=== PATIENT | female | born 1975 | race American Indian/Alaskan Native ===

== ENCOUNTER 2016-05-23 09:45 | Emergency (ER) | payer MEDICAID | END 2016-05-23 09:46 | disposition left against medical advice (07) | LOC: ED 09:45 | DX: R11.2 Nausea with vomiting, unspecified (principal); Z53.21 Procedure and treatment not carried out due to patient leaving prior to being seen by health care provider ==

== ENCOUNTER 2016-05-30 07:31 | Emergency (ER) | payer MEDICAID ==
[2016-05-30] MEDS ORDERED: PHENERGAN PR ONE (11:46)
[2016-05-30] MEDS ORDERED: DILAUDID IV ONE ×2 (11:46→13:29)
[2016-05-30] MEDS ORDERED: D5NS 1,000 ML IV SCH (12:00)
[2016-05-30] MEDS ORDERED: BENADRYL ONE (12:20)
[2016-05-30 12:26] LABS: Basophils % (Auto) 0.5 % (0.0-1.8); Eosinophils % (Auto) 0.6 % (0.0-4.3); Hemoglobin 9.6 gm/dl (10.1-14.3); Mean Corpuscular HGB Conc 32 % (30-34); Mean Corpuscular Hemoglobin 27 pg (28-32); Mean Corpuscular Volume 83 fl (79-97); Platelet Count 175 K/mm3 (140-440); Red Blood Count 3.63 M/mm3 (3.65-5.03); Red Cell Distribution Width 15.5 % (13.2-15.2); White Blood Count 4.7 K/mm3 (4.5-11.0)
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
[2016-05-30] MEDS ORDERED: BENADRYL IV ONE (12:30)
[2016-05-30 12:49] LABS: Alanine Aminotransferase 10 units/L (7-56); Albumin/Globulin Ratio 1.6 %; Alkaline Phosphatase 57 units/L (35-129); Bilirubin,Total 0.2 mg/dL (0.1-1.2); Blood Urea Nitrogen 7 mg/dL (7-17); Calcium 8.4 mg/dL (8.4-10.2); Carbon Dioxide 28 mmol/L (22-30); Chloride 101.8 mmol/L (98-107); Glucose 85 mg/dL (65-100); Lipase 48 units/L (13-60); Potassium 3.4 mmol/L (3.6-5.0); Sodium 142 mmol/L (137-145); Total Protein 6.5 g/dL (6.3-8.2)
[2016-05-30 12:59] LABS: Anion Gap 16 mmol/L
[2016-05-30] MEDS ORDERED: K-DUR PO ONE (13:29)
[2016-05-30 13:36] LABS: Bilirubin,Urine NEG (Negative); Blood,Urine SM (Negative); Ketones,Urine NEG (Negative); Leukocyte Esterase,Urine NEG (Negative); Mucus,Urine FEW /HPF; Nitrite,Urine NEG (Negative); Protein,Urine <15 mg/dL mg/dL (Negative); Urobilinogen,Urine < 2.0 mg/dL (<2.0)
[2016-05-30 14:11] VITALS: BP 130/89
[2016-05-30] MEDS ORDERED: FLUSH HEPARIN IV ONE ×2 (14:18→14:29)
== END 2016-05-30 14:32 | disposition home or self-care (01) ==
LOC: ED 07:31
DX: E87.6 Hypokalemia (principal); R10.84 Generalized abdominal pain; R11.2 Nausea with vomiting, unspecified; K21.9 Gastro-esophageal reflux disease without esophagitis; J45.909 Unspecified asthma, uncomplicated
CPT/HCPCS: 36415; 80053; 81001; 83690; 85025; 96374; 96375; 96376; 99283; J1170; J1200; J1642

== ENCOUNTER 2016-06-20 07:54 | Emergency (ER) | payer MEDICAID ==
[2016-06-20 08:37] VITALS: BP 146/78
--- NOTE | 2016-06-21 00:22 | ED Elopement Review ---
ED Pt Elopement review - Call Back decision Pt Call Back Decision: No action required
== END 2016-06-20 08:45 | disposition left against medical advice (07) ==
LOC: ED 07:54
DX: R11.2 Nausea with vomiting, unspecified (principal); R10.9 Unspecified abdominal pain; Z53.21 Procedure and treatment not carried out due to patient leaving prior to being seen by health care provider

== ENCOUNTER 2016-06-27 10:34 | Emergency (ER) | payer MEDICAID ==
[2016-06-27 11:48] VITALS: BP 127/89
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
== END 2016-06-27 12:51 | disposition home or self-care (01) ==
LOC: ED 10:34
DX: K08.89 Other specified disorders of teeth and supporting structures (principal); J45.909 Unspecified asthma, uncomplicated; D64.9 Anemia, unspecified; K86.1 Other chronic pancreatitis; K58.8 Other irritable bowel syndrome; K31.84 Gastroparesis; F17.200 Nicotine dependence, unspecified, uncomplicated; Z88.5 Allergy status to narcotic agent; Z88.8 Allergy status to other drugs, medicaments and biological substances
CPT/HCPCS: 99282

== ENCOUNTER 2016-07-25 12:17 | Emergency (ER) | payer MEDICAID ==
[2016-07-25 13:17] VITALS: BP 134/94
== END 2016-07-25 13:30 | disposition left against medical advice (07) ==
LOC: ED 12:17
DX: R10.9 Unspecified abdominal pain (principal); Z53.21 Procedure and treatment not carried out due to patient leaving prior to being seen by health care provider

== ENCOUNTER 2016-08-25 07:49 | Emergency (ER) | payer MEDICAID ==
[2016-08-25] MEDS ORDERED: ATIVAN IV ONE (12:22)
[2016-08-25] MEDS ORDERED: DILAUDID IV ONE (12:22)
[2016-08-25] MEDS ORDERED: PHENERGAN PR ONE (12:23)
[2016-08-25] MEDS ORDERED: BENADRYL IV ONE (12:23)
[2016-08-25] MEDS ORDERED: NACL 0.9% 1000 ML 1,000 ML IV ONE (12:24)
[2016-08-25 12:52] LABS: Basophils % (Auto) 0.8 % (0.0-1.8); Eosinophils % (Auto) 0.6 % (0.0-4.3); Hemoglobin 9.6 gm/dl (10.1-14.3); Mean Corpuscular HGB Conc 32 % (30-34); Mean Corpuscular Hemoglobin 27 pg (28-32); Mean Corpuscular Volume 84 fl (79-97); Platelet Count 253 K/mm3 (140-440); Red Blood Count 3.58 M/mm3 (3.65-5.03); Red Cell Distribution Width 14.5 % (13.2-15.2); White Blood Count 4.7 K/mm3 (4.5-11.0)
[2016-08-25 13:11] LABS: Alanine Aminotransferase 9 units/L (7-56); Albumin/Globulin Ratio 1.5 %; Alkaline Phosphatase 55 units/L (35-129); Anion Gap 16 mmol/L; BUN/Creatinine Ratio 11.66; Bilirubin,Total 0.3 mg/dL (0.1-1.2); Blood Urea Nitrogen 7 mg/dL (7-17); Calcium 8.4 mg/dL (8.4-10.2); Carbon Dioxide 23 mmol/L (22-30); Chloride 105.8 mmol/L (98-107); Glucose 87 mg/dL (65-100); Lipase 84 units/L (13-60); Potassium 3.3 mmol/L (3.6-5.0); Sodium 141 mmol/L (137-145); Total Protein 6.6 g/dL (6.3-8.2)
[2016-08-25] MEDS ORDERED: FLUSH HEPARIN IV ONE (13:41)
--- NOTE | 2016-08-25 13:43 | Emergency Department Report ---
ED General Adult HPI - General Chief complaint: Abdominal Pain Stated complaint: KIDNEY STONE PAIN Time Seen by Provider: 08/25/16 12:21 Source: patient, EMS Mode of arrival: Ambulatory Limitations: No Limitations - History of Present Illness Initial comments: This is a patient that I have previously encountered. She gave a fictitious history. She has a port. She has previously been and pain management. She states that she does not have any pain medicine now and that her pain has recurred. She recurrently tells people that she has pancreatitis and her lipase is recurrently normal. She requests Dilaudid and Phenergan typically. She states that she has primary care doctor's which have only seen her one time. Now she states that he relieves her primary care doctor but she hasn't seen him for 2 weeks. She also states that she has an appointment to see Dr. Childers. Previous CTs of the abdomen showed no evidence of cancer or pancreatitis. She is not particularly receptive to the idea of chronic pain management. -: Gradual, year(s) Location: abdomen Radiation: non-radiation Quality: aching Consistency: constant Improves with: none Worsens with: none Associated Symptoms: denies other symptoms Treatments Prior to Arrival: none - Related Data Previous Rx's Medication Instructions Recorded Last Taken Type Famotidine [Pepcid] 20 mg PO BID #60 tablet 04/26/16 Unknown Rx Promethazine [Phenergan TAB] 25 mg PO Q8HR PRN #20 tab 05/30/16 Unknown Rx oxyCODONE /ACETAMINOPHEN [Percocet 1 tab PO Q6HR PRN #20 tablet 05/30/16 Unknown Rx 5/325 mg] Lidocaine Viscous 2% 15 ml MM Q4H PRN #100 udc 06/27/16 Unknown Rx Penicillin Vk [Veetids TAB] 250 mg PO QID #28 tablet 06/27/16 Unknown Rx Allergies Allergy/AdvReac Type Severity Reaction Status Date / Time codeine Allergy Itching Verified 07/25/16 13:21 fentanyl Allergy Hives Verified 07/25/16 13:21 ketorolac tromethamine Allergy Itching Verified 07/25/16 13:21 [From Toradol] metoclopramide HCl Allergy Hives Verified 07/25/16 13:21 [From Reglan] morphine Allergy Hives Verified 07/25/16 13:21 ondansetron HCl [From Zofran] Allergy Hives Verified 07/25/16 13:21 prochlorperazine edisylate Allergy Hives Verified 07/25/16 13:21 [From Compazine] prochlorperazine maleate Allergy Hives Verified 07/25/16 13:21 [From Compazine] ED Review of Systems ROS: Stated complaint: KIDNEY STONE PAIN Other details as noted in HPI Constitutional: denies: chills, fever Eyes: denies: eye pain, eye discharge, vision change ENT: denies: ear pain, throat pain Respiratory: denies: cough, shortness of breath, wheezing Cardiovascular: denies: chest pain, palpitations Endocrine: no symptoms reported Gastrointestinal: abdominal pain, nausea. denies: diarrhea Genitourinary: denies: urgency, dysuria, discharge Musculoskeletal: denies: back pain, joint swelling, arthralgia Skin: denies: rash, lesions Neurological: denies: headache, weakness, paresthesias Psychiatric: denies: anxiety, depression Hematological/Lymphatic: denies: easy bleeding, easy bruising ED Past Medical Hx - Past Medical History Previous Medical History?: Yes Hx Hypertension: No Hx CVA: No Hx Heart Attack/AMI: No Hx Congestive Heart Failure: No Hx Diabetes: No Hx Deep Vein Thrombosis: No Hx Pulmonary Embolism: No Hx GERD: Yes (Gastroparesis) Hx Liver Disease: No Hx Renal Disease: Yes (renal failure- now in remission) Hx Sickle Cell Disease: No Hx Arthritis: No Hx Headaches / Migraines: No Hx Seizures: No Hx Kidney Stones: Yes Hx Psychiatric Treatment: No Hx Asthma: Yes Hx COPD: No Hx Tuberculosis: No Hx Dementia: No Hx HIV: No Additional medical history: ovarian/lung ca, gastroparesis, IBS, chronic pancereatitis, anemia. (LYMPHOMA LUNG), pyelonephritis, herpes. PORT RIGHT CHEST - Surgical History Past Surgical History?: Yes Hx Coronary Stent: No Hx Open Heart Surgery: No Hx Pacemaker: No Hx Internal Defibrillator: No Hx Cholecystectomy: Yes Hx Appendectomy: No Hx Breast Surgery: No Additional Surgical History: fistula repair, lower bowel dissection, stents (in/ out), hysterectomy. Power port - Social History Smoking Status: Never Smoker Substance Use Type: Prescribed - Medications Home Medications: Home Medications Medication Instructions Recorded Confirmed Last Taken Type Famotidine [Pepcid] 20 mg PO BID #60 tablet 04/26/16 Unknown Rx Promethazine [Phenergan TAB] 25 mg PO Q8HR PRN #20 tab 05/30/16 Unknown Rx oxyCODONE /ACETAMINOPHEN [Percocet 1 tab PO Q6HR PRN #20 tablet 05/30/16 Unknown Rx 5/325 mg] Lidocaine Viscous 2% 15 ml MM Q4H PRN #100 udc 06/27/16 Unknown Rx Penicillin Vk [Veetids TAB] 250 mg PO QID #28 tablet 06/27/16 Unknown Rx ED Physical Exam - General Limitations: No Limitations General appearance: alert, in no apparent distress - Head Head exam: Present: atraumatic, normocephalic - Eye Eye exam: Present: normal appearance, PERRL, EOMI. Absent: scleral icterus - ENT ENT exam: Present: mucous membranes moist - Neck Neck exam: Present: normal inspection - Respiratory Respiratory exam: Present: normal lung sounds bilaterally. Absent: respiratory distress - Cardiovascular Cardiovascular Exam: Present: regular rate, normal rhythm. Absent: systolic murmur, diastolic murmur, rubs, gallop - GI/Abdominal GI/Abdominal exam: Present: soft, guarding (voluntary guarding only. with distraction the abdominal exam is normal.), normal bowel sounds. Absent: distended, tenderness, rebound, rigid, organomegaly, mass, pulsatile mass - Extremities Exam Extremities exam: Present: normal inspection - Back Exam Back exam: Present: normal inspection - Neurological Exam Neurological exam: Present: alert, oriented X3, CN II-XII intact. Absent: motor sensory deficit - Psychiatric Psychiatric exam: Present: normal affect, normal mood - Skin Skin exam: Present: warm, dry, intact, normal color. Absent: rash ED Course Vital Signs 08/25/16 08/25/16 08/25/16 07:50 12:22 12:31 Temperature 98.7 F Pulse Rate 103 H Respiratory 20 Rate Blood Pressure 135/110 142/95 O2 Sat by Pulse 98 100 100 Oximetry 08/25/16 12:44 Temperature Pulse Rate Respiratory 18 Rate Blood Pressure O2 Sat by Pulse Oximetry - Reevaluation(s) Reevaluation #1: The patient was seen walking about the emergency department in no distress. She would not provide a urinalysis. Do not think it is necessary for us to complete her workup. Therefore this be canceled. Patient has chronic pain gives fictitious history and many red flags for drug-seeking behavior. She is not receptive to continuity of care it was see him in a chronic pain management setting. It was also same medicines was necessary. She will be discharged to follow-up with Dr. Fallon and Dr. Childers. 08/25/16 13:42 ED Medical Decision Making - Lab Data Result diagrams: 08/25/16 12:20 08/25/16 12:20 Critical care attestation.: If time is entered above; I have spent that time in minutes in the direct care of this critically ill patient, excluding procedure time. ED Disposition Clinical Impression: Gastroparesis, Hypokalemia, Hx of chronic pancreatitis Abdominal pain Qualifiers: Abdominal location: generalized Qualified Code(s): R10.84 - Generalized abdominal pain Disposition: DISCHARGED TO HOME OR SELFCARE Is pt being admited?: No Does the pt Need Aspirin: No Condition: Stable Instructions: Abdominal Pain (ED), Chronic Pain (ED) Additional Instructions: Follow up with Dr. Fallon and Dr. Childers. It would seem that chronic pain management would be appropriate. There is no evidence of pancreatitis at this time. Referrals: PRIMARY CARE, [Primary Care Provider] - 3-5 Days Time of Disposition: 13:44
[2016-08-25] MEDS ORDERED: PERCOCET 5/325 PO ONE (13:49)
[2016-08-25] MEDS ORDERED: K-DUR PO ONE (13:49)
[2016-08-25 14:20] VITALS: BP 131/71
== END 2016-08-25 14:19 | disposition home or self-care (01) ==
LOC: ED 07:49
DX: K31.84 Gastroparesis (principal); E87.6 Hypokalemia; J45.909 Unspecified asthma, uncomplicated; Z90.49 Acquired absence of other specified parts of digestive tract; Z90.710 Acquired absence of both cervix and uterus
CPT/HCPCS: 36415; 51701; 80053; 83690; 85025; 96361; 96374; 96375; 99284; J1170; J1200; J1642; J2060; J7030

== ENCOUNTER 2016-10-14 05:39 | Emergency (ER) | payer MEDICAID ==
--- NOTE | 2016-10-14 08:24 | Emergency Department Report ---
ED Abdominal Pain HPI - General Chief Complaint: Abdominal Pain Stated Complaint: ABD PAIN/N/V HEADACHE Time Seen by Provider: 10/14/16 08:22 Source: patient Mode of arrival: Ambulatory Limitations: No Limitations - History of Present Illness Initial Comments: This is a patient that I previously. On a number of medications. As far as I know she gives a fictitious history of lymphoma. She has been here multiple times requesting pain management. She is totally resistant to chronic pain management when I have mentioned it in the past and also today. She states that she had an amylase of 1:30 in her primary care office. MD Complaint: abdominal pain -: year(s) Location: diffuse Radiation: none Migration to: no migration Quality: aching Consistency: intermittent Improves With: nothing Worsens With: nothing Associated Symptoms: denies other symptoms - Related Data Previous Rx's Medication Instructions Recorded Last Taken Type Famotidine [Pepcid] 20 mg PO BID #60 tablet 04/26/16 Unknown Rx Promethazine [Phenergan TAB] 25 mg PO Q8HR PRN #20 tab 05/30/16 Unknown Rx oxyCODONE /ACETAMINOPHEN [Percocet 1 tab PO Q6HR PRN #20 tablet 05/30/16 Unknown Rx 5/325 mg] Lidocaine Viscous 2% 15 ml MM Q4H PRN #100 udc 06/27/16 Unknown Rx Penicillin Vk [Veetids TAB] 250 mg PO QID #28 tablet 06/27/16 Unknown Rx HYDROcodone/APAP 7.5-325 [[place] 1 each PO Q6HR PRN #14 tablet 08/25/16 Unknown Rx 7.5/325] Promethazine [Phenergan] 25 mg [place] Q6HR PRN #14 supp.rect 08/25/16 Unknown Rx Allergies Allergy/AdvReac Type Severity Reaction Status Date / Time codeine Allergy Itching Verified 07/25/16 13:21 fentanyl Allergy Hives Verified 07/25/16 13:21 ketorolac tromethamine Allergy Itching Verified 07/25/16 13:21 [From Toradol] metoclopramide HCl Allergy Hives Verified 07/25/16 13:21 [From Reglan] morphine Allergy Hives Verified 07/25/16 13:21 ondansetron HCl [From Zofran] Allergy Hives Verified 07/25/16 13:21 prochlorperazine edisylate Allergy Hives Verified 07/25/16 13:21 [From Compazine] prochlorperazine maleate Allergy Hives Verified 07/25/16 13:21 [From Compazine] ED Review of Systems ROS: Stated complaint: ABD PAIN/N/V HEADACHE Other details as noted in HPI Constitutional: denies: chills, fever Eyes: denies: eye pain, eye discharge, vision change ENT: denies: ear pain, throat pain Respiratory: denies: cough, shortness of breath, wheezing Cardiovascular: denies: chest pain, palpitations Endocrine: no symptoms reported Gastrointestinal: abdominal pain. denies: vomiting, diarrhea Genitourinary: denies: urgency, dysuria, discharge Musculoskeletal: denies: back pain, joint swelling, arthralgia Skin: denies: rash, lesions Neurological: denies: headache, weakness, paresthesias Psychiatric: denies: anxiety, depression Hematological/Lymphatic: denies: easy bleeding, easy bruising ED Past Medical Hx - Past Medical History Previous Medical History?: Yes Hx Hypertension: No Hx CVA: No Hx Heart Attack/AMI: No Hx Congestive Heart Failure: No Hx Diabetes: No Hx Deep Vein Thrombosis: No Hx Pulmonary Embolism: No Hx GERD: Yes (Gastroparesis) Hx Liver Disease: No Hx Renal Disease: Yes (renal failure- now in remission) Hx Sickle Cell Disease: No Hx Arthritis: No Hx Headaches / Migraines: No Hx Seizures: No Hx Kidney Stones: Yes Hx Psychiatric Treatment: No Hx Asthma: Yes Hx COPD: No Hx Tuberculosis: No Hx Dementia: No Hx HIV: No Additional medical history: ovarian/lung ca, gastroparesis, IBS, chronic pancereatitis, anemia. (LYMPHOMA LUNG), pyelonephritis, herpes. PORT RIGHT CHEST - Surgical History Past Surgical History?: Yes Hx Coronary Stent: No Hx Open Heart Surgery: No Hx Pacemaker: No Hx Internal Defibrillator: No Hx Cholecystectomy: Yes Hx Appendectomy: No Hx Breast Surgery: No Additional Surgical History: fistula repair, lower bowel dissection, stents (in/ out), hysterectomy. Power port - Social History Smoking Status: Never Smoker Substance Use Type: None - Medications Home Medications: Home Medications Medication Instructions Recorded Confirmed Last Taken Type Famotidine [Pepcid] 20 mg PO BID #60 tablet 04/26/16 Unknown Rx Promethazine [Phenergan TAB] 25 mg PO Q8HR PRN #20 tab 05/30/16 Unknown Rx oxyCODONE /ACETAMINOPHEN [Percocet 1 tab PO Q6HR PRN #20 tablet 05/30/16 Unknown Rx 5/325 mg] Lidocaine Viscous 2% 15 ml [place] Q4H PRN #100 udc 06/27/16 Unknown Rx Penicillin Vk [Veetids TAB] 250 mg PO QID #28 tablet 06/27/16 Unknown Rx HYDROcodone/APAP 7.5-325 [[place] 1 each PO Q6HR PRN #14 tablet 08/25/16 Unknown Rx 7.5/325] Promethazine [Phenergan] 25 mg [place] Q6HR PRN #14 supp.rect 08/25/16 Unknown Rx ED Physical Exam - General Limitations: No Limitations General appearance: alert, in no apparent distress - Head Head exam: Present: atraumatic, normocephalic - Eye Eye exam: Present: normal appearance. Absent: scleral icterus - ENT ENT exam: Present: mucous membranes moist - Neck Neck exam: Present: normal inspection - Respiratory Respiratory exam: Present: normal lung sounds bilaterally. Absent: respiratory distress - Cardiovascular Cardiovascular Exam: Present: regular rate, normal rhythm. Absent: systolic murmur, diastolic murmur, rubs, gallop - GI/Abdominal GI/Abdominal exam: Present: soft, normal bowel sounds. Absent: distended, tenderness, guarding, rebound, rigid, organomegaly, mass, bruit, pulsatile mass , hernia - Extremities Exam Extremities exam: Present: normal inspection - Back Exam Back exam: Present: normal inspection - Neurological Exam Neurological exam: Present: alert, oriented X3, CN II-XII intact. Absent: motor sensory deficit - Psychiatric Psychiatric exam: Present: normal affect, normal mood - Skin Skin exam: Present: warm, dry, intact, normal color. Absent: rash ED Course Vital Signs 10/14/16 10/14/16 10/14/16 05:49 08:45 09:00 Temperature 99.1 F Pulse Rate 104 H 101 H Respiratory 20 16 16 Rate Blood Pressure 126/80 Blood Pressure 137/74 [Right] O2 Sat by Pulse 96 100 98 Oximetry - Reevaluation(s) Reevaluation #1: This was informed to access the patient's port. However, she became involved with another emergency patient (STEMI). The patient did make some inappropriate comments about staff stating she was a drug addict. This is completely false. The patient disputable he has had many emergency department visits. She tends to have a minimally elevated amylase or lipase. I have seen her now 3 times. It is possible that she does have some chronic pancreatitis. Her history of lymphoma could not be substantiated. She stated that her primary care provider found her lipase to be 1:30. It is about that today. I don't see any indication for acute intravenous pain management. In any case, the patient left without treatment. 10/14/16 12:44 10/14/16 12:48 ED Medical Decision Making - Lab Data Result diagrams: 10/14/16 09:59 10/14/16 09:59 Laboratory Results - last 24 hr 10/14/16 10/14/16 10/14/16 09:59 09:59 09:59 WBC 5.6 RBC 4.20 Hgb 11.1 Hct 34.5 MCV 82 MCH 26 L MCHC 32 RDW 15.9 H Plt Count 242 Lymph % (Auto) 36.1 H [place] % (Auto) 8.0 H Eos % (Auto) 2.2 Baso % (Auto) 0.8 Lymph # 2.0 [place] # 0.4 Eos # 0.1 Baso # 0.0 Seg Neutrophils % 52.9 Seg Neutrophils # 3.0 Sodium 142 Potassium 3.9 Chloride 105.2 Carbon Dioxide 24 Anion Gap 17 BUN 11 Creatinine 0.6 L Estimated GFR > 60 BUN/Creatinine Ratio 18.33 Glucose 101 H Calcium 8.5 Magnesium 2.10 Total Bilirubin < 0.20 AST 52 H ALT 18 Alkaline Phosphatase 62 Total Protein 7.0 Albumin 4.2 Albumin/Globulin Ratio 1.5 Amylase 173 H Lipase 127 H Critical care attestation.: If time is entered above; I have spent that time in minutes in the direct care of this critically ill patient, excluding procedure time. ED Disposition Clinical Impression: Abdominal pain Qualifiers: Abdominal location: generalized Qualified Code(s): R10.84 - Generalized abdominal pain Disposition: ELOPED Is pt being admited?: No Does the pt Need Aspirin: No Condition: Undetermined Instructions: Abdominal Pain (ED) Referrals: PRIMARY CARE, [Primary Care Provider] - 3-5 Days Time of Disposition: 10:00
[2016-10-14 10:23] LABS: Basophils % (Auto) 0.8 % (0.0-1.8); Eosinophils % (Auto) 2.2 % (0.0-4.3); Hematocrit 34.5 % (30.3-42.9); Hemoglobin 11.1 gm/dl (10.1-14.3); Mean Corpuscular HGB Conc 32 % (30-34); Mean Corpuscular Hemoglobin 26 pg (28-32); Mean Corpuscular Volume 82 fl (79-97); Platelet Count 242 K/mm3 (140-440); Red Cell Distribution Width 15.9 % (13.2-15.2); White Blood Count 5.6 K/mm3 (4.5-11.0)
[2016-10-14 10:31] VITALS: BP 137/74
[2016-10-14 10:39] LABS: Magnesium 2.1 mg/dL (1.7-2.3)
[2016-10-14 10:43] LABS: Alanine Aminotransferase 18 units/L (7-56); Albumin 4.2 g/dL (3.9-5); Albumin/Globulin Ratio 1.5 %; Alkaline Phosphatase 62 units/L (35-129); Anion Gap 17 mmol/L; BUN/Creatinine Ratio 18.33; Bilirubin,Total < 0.20 mg/dL (0.1-1.2); Blood Urea Nitrogen 11 mg/dL (7-17); Calcium 8.5 mg/dL (8.4-10.2); Carbon Dioxide 24 mmol/L (22-30); Chloride 105.2 mmol/L (98-107); Glucose 101 mg/dL (65-100); Potassium 3.9 mmol/L (3.6-5.0); Sodium 142 mmol/L (137-145)
== END 2016-10-14 11:15 | disposition left against medical advice (07) ==
LOC: ED 05:39
DX: R10.84 Generalized abdominal pain (principal); J45.909 Unspecified asthma, uncomplicated; K58.9 Irritable bowel syndrome, unspecified; D64.9 Anemia, unspecified; Z88.5 Allergy status to narcotic agent; Z88.8 Allergy status to other drugs, medicaments and biological substances
CPT/HCPCS: 36415; 80053; 82150; 83690; 83735; 85025; 99283

== ENCOUNTER 2016-12-05 09:36 | Emergency (ER) | payer MEDICAID, OTHER ==
[2016-12-05] MEDS ORDERED: NACL 0.9% 1000 ML 1,000 ML IV ONE (10:11)
[2016-12-05] MEDS ORDERED: BENTYL IM ONE (10:28)
[2016-12-05] MEDS ORDERED: BENADRYL IV ONE (10:29)
[2016-12-05] MEDS ORDERED: DILAUDID IV ONE (11:18)
--- NOTE | 2016-12-05 11:20 | Cat Scan Report ---
CT ABDOMEN AND PELVIS WITHOUT CONTRAST INDICATION: Abdominal pain, nausea, vomiting. COMPARISON: 04/24/2016 FINDINGS: Noncontrast abdomen and pelvis CT performed. LUNG BASES: Nonspecific distal esophageal wall prominence/thickening, not excluded for gastroesophageal reflux and/or hiatal hernia, amongst others. ABDOMEN: Please note that sensitivity to detect small visceral lesions is limited due to the absence of intravenous or oral contrast. However, grossly unremarkable unenhanced liver, spleen, pancreas, adrenals, kidneys, non-aneurysmal abdominal aorta and the IVC. No ascites or size significant adenopathy. Stable cholecystectomy clips and small umbilical/supraumbilical fat containing hernia. Nonopacified GI tract evaluation limited, though grossly nonobstructive. Subtle prominence of the appendix about its cecal attachment though nonspecific with approximately 1 cm caliber, axial image 213, series 2 and arguably a similar appearance as on December 2015 CT. PELVIS: Uterus again surgically absent with few pelvic phleboliths. Grossly unremarkable nonopacified rectosigmoid. Urinary bladder inadequately distended and assessed. No free fluid or significant adenopathy. Slight dextroscoliosis apex about L2. CONCLUSION: No definite acute CT abnormality on this limited, unenhanced exam with few incidental findings, as above. Please also correlate clinically. I phoned the above posterior body in the ER, 11:10 AM, 11/25/2016. Thank you for the opportunity to participate in this patient's care.
[2016-12-05 11:34] LABS: Basophils % (Auto) 0.7 % (0.0-1.8); Eosinophils % (Auto) 0.3 % (0.0-4.3); Hematocrit 30.9 % (30.3-42.9); Mean Corpuscular HGB Conc 33 % (30-34); Mean Corpuscular Hemoglobin 27 pg (28-32); Mean Corpuscular Volume 83 fl (79-97); Platelet Count 248 K/mm3 (140-440); Red Blood Count 3.75 M/mm3 (3.65-5.03); Red Cell Distribution Width 16.5 % (13.2-15.2); White Blood Count 6.3 K/mm3 (4.5-11.0)
[2016-12-05 11:44] LABS: Partial Thromboplastin Time 37.4 Sec. (24.2-36.6)
[2016-12-05 11:47] LABS: Alanine Aminotransferase 40 units/L (7-56); Albumin 4.4 g/dL (3.9-5); Albumin/Globulin Ratio 1.5 %; Alkaline Phosphatase 69 units/L (35-129); Amylase 126 units/L (27-131); Anion Gap 18 mmol/L; Blood Urea Nitrogen 12 mg/dL (7-17); Calcium 8.8 mg/dL (8.4-10.2); Carbon Dioxide 26 mmol/L (22-30); Chloride 101.4 mmol/L (98-107); Glucose 97 mg/dL (65-100); Lipase 74 units/L (13-60); Potassium 3.9 mmol/L (3.6-5.0); Sodium 141 mmol/L (137-145); Total Protein 7.4 g/dL (6.3-8.2)
--- NOTE | 2016-12-05 13:30 | Emergency Department Report ---
HPI - General Chief Complaint: Nausea/Vomiting/Diarrhea Time Seen by Provider: 12/05/16 10:02 - HPI HPI: ABDOMINAL PAIN. ED Past Medical Hx - Past Medical History Hx Hypertension: No Hx CVA: No Hx Heart Attack/AMI: No Hx Congestive Heart Failure: No Hx Diabetes: No Hx Deep Vein Thrombosis: No Hx Pulmonary Embolism: No Hx GERD: Yes (Gastroparesis) Hx Liver Disease: No Hx Renal Disease: Yes (renal failure- now in remission) Hx Sickle Cell Disease: No Hx Arthritis: No Hx Headaches / Migraines: No Hx Seizures: No Hx Kidney Stones: Yes Hx Psychiatric Treatment: No Hx Asthma: Yes Hx COPD: No Hx Tuberculosis: No Hx Dementia: No Hx HIV: No Additional medical history: ovarian/lung ca, gastroparesis, IBS, chronic pancereatitis, anemia. (LYMPHOMA LUNG), pyelonephritis, herpes. PORT RIGHT CHEST - Surgical History Hx Coronary Stent: No Hx Open Heart Surgery: No Hx Pacemaker: No Hx Internal Defibrillator: No Hx Cholecystectomy: Yes Hx Appendectomy: No Hx Breast Surgery: No Additional Surgical History: fistula repair, lower bowel dissection, stents (in/ out), hysterectomy. Power port - Social History Smoking Status: Never Smoker Substance Use Type: None - Medications Home Medications: Home Medications Medication Instructions Recorded Confirmed Last Taken Type Famotidine [Pepcid] 20 mg PO BID #60 tablet 04/26/16 Unknown Rx Promethazine [Phenergan TAB] 25 mg PO Q8HR PRN #20 tab 05/30/16 Unknown Rx oxyCODONE /ACETAMINOPHEN [Percocet 1 tab PO Q6HR PRN #20 tablet 05/30/16 Unknown Rx 5/325 mg] Lidocaine Viscous 2% 15 ml MM Q4H PRN #100 udc 06/27/16 Unknown Rx Penicillin Vk [Veetids TAB] 250 mg PO QID #28 tablet 06/27/16 Unknown Rx HYDROcodone/APAP 7.5-325 [[place] 1 each PO Q6HR PRN #14 tablet 08/25/16 Unknown Rx 7.5/325] Promethazine [Phenergan] 25 mg [place] Q6HR PRN #14 supp.rect 08/25/16 Unknown Rx ED Review of Systems ROS: Stated complaint: THROWING UP BILE Other details as noted in HPI Physical Exam - Physical Exam Vital Signs: Vital Signs 12/05/16 09:55 Temperature 99.2 F Pulse Rate 108 H Respiratory 16 Rate Blood Pressure 128/72 O2 Sat by Pulse 99 Oximetry ED Course Vital Signs 12/05/16 09:55 Temperature 99.2 F Pulse Rate 108 H Respiratory 16 Rate Blood Pressure 128/72 O2 Sat by Pulse 99 Oximetry ED Medical Decision Making - Lab Data Result diagrams: 12/05/16 10:54 12/05/16 10:54 Critical care attestation.: If time is entered above; I have spent that time in minutes in the direct care of this critically ill patient, excluding procedure time. ED Disposition Clinical Impression: Abdominal pain Disposition: DC-01 TO HOME OR SELFCARE Is pt being admited?: No Does the pt Need Aspirin: No Condition: Stable Instructions: Abdominal Pain (ED) Referrals: PRIMARY CARE, [Primary Care Provider] - 3-5 Days
[2016-12-05 13:42] VITALS: BP 122/74
== END 2016-12-05 13:45 | disposition home or self-care (01) ==
LOC: ED 09:36
DX: R10.13 Epigastric pain (principal); R11.2 Nausea with vomiting, unspecified; R19.7 Diarrhea, unspecified; K21.9 Gastro-esophageal reflux disease without esophagitis; J45.909 Unspecified asthma, uncomplicated
CPT/HCPCS: 36415; 74176; 80053; 82150; 83690; 84484; 85025; 85610; 85730; 96361; 96372; 96374; 96375; 99284; J1170; J1200; J7030

== ENCOUNTER 2016-12-24 08:10 | Inpatient (IN) | payer OTHER ==
[2016-12-24 10:24] LABS: Basophils % (Auto) 0.6 % (0.0-1.8); Eosinophils % (Auto) 0.4 % (0.0-4.3); Hematocrit 32.8 % (30.3-42.9); Hemoglobin 10.4 gm/dl (10.1-14.3); Mean Corpuscular HGB Conc 32 % (30-34); Mean Corpuscular Hemoglobin 26 pg (28-32); Mean Corpuscular Volume 82 fl (79-97); Platelet Count 263 K/mm3 (140-440); Red Blood Count 3.99 M/mm3 (3.65-5.03); Red Cell Distribution Width 15.3 % (13.2-15.2); White Blood Count 4.5 K/mm3 (4.5-11.0)
[2016-12-24 10:26] LABS: Bilirubin,Urine NEG (Negative); Blood,Urine SM (Negative); Ketones,Urine NEG (Negative); Leukocyte Esterase,Urine NEG (Negative); Nitrite,Urine NEG (Negative); Protein,Urine <15 mg/dL mg/dL (Negative); Urobilinogen,Urine < 2.0 mg/dL (<2.0); WBC,Urine < 1.0 /HPF (0.0-6.0)
[2016-12-24] MEDS ORDERED: DILAUDID IV ONE ×2 (10:42→13:12)
[2016-12-24] MEDS ORDERED: PHENERGAN PR ONE ×3 (10:42→13:12)
[2016-12-24] MEDS ORDERED: ATIVAN IV ONE (10:43)
[2016-12-24] MEDS ORDERED: BENADRYL IV ONE (10:44)
[2016-12-24 10:49] LABS: Alanine Aminotransferase 15 units/L (7-56); Albumin 4.1 g/dL (3.9-5); Albumin/Globulin Ratio 1.4 %; Alkaline Phosphatase 79 units/L (35-129); Anion Gap 16 mmol/L; BUN/Creatinine Ratio 8.57; Blood Urea Nitrogen 6 mg/dL (7-17); Calcium 8.5 mg/dL (8.4-10.2); Carbon Dioxide 26 mmol/L (22-30); Chloride 100.3 mmol/L (98-107); Glucose 125 mg/dL (65-100); Lipase 36 units/L (13-60); Potassium 3.5 mmol/L (3.6-5.0); Sodium 139 mmol/L (137-145)
[2016-12-24] MEDS ORDERED: D5NS 1,000 ML IV SCH ×3 (11:00→15:00)
[2016-12-24] MEDS ORDERED: POTASSIUM CHLORIDE PO ONE (12:07)
--- NOTE | 2016-12-24 12:07 | Emergency Department Report ---
ED Abdominal Pain HPI - General Chief Complaint: Abdominal Pain Stated Complaint: ABD PAIN Time Seen by Provider: 12/24/16 10:22 Source: patient, old records reviewed Mode of arrival: Wheelchair Limitations: No Limitations - History of Present Illness Initial Comments: 41-year-old female with a past medical history of recurrent visits to the ER for abdominal pain, chronic pancreatitis, gastroparesis, kidney stones, possible history of lymphoma, previous hysterectomy, fissure repair, and bowel surgery presents to the hospital with complaints of abdominal pain for the last several days and nausea and vomiting since midnight. Positive diarrhea for the past 4 days. Pain is the left upper abdomen, constant, aching with intermittent sharp component and radiates to the back. Patient also have a sharp right flank pain that is intermittent as well and patient expresses concern for kidney stones. Pain is 8/10 in intensity, worse with palpation and movement. No alleviating factors. Currently not taking any narcotics at home. Patient has had a history of frequent ER visits for chronic pain related complaints. She denies currently been enrolled into pain management. No recent antibiotic use reported. PMD: Dr. Baker, GI: [facility] Severity scale (0 -10): 8 - Related Data Previous Rx's Medication Instructions Recorded Last Taken Type Famotidine [Pepcid] 20 mg PO BID #60 tablet 04/26/16 Unknown Rx Promethazine [Phenergan TAB] 25 mg PO Q8HR PRN #20 tab 05/30/16 Unknown Rx oxyCODONE /ACETAMINOPHEN [Percocet 1 tab PO Q6HR PRN #20 tablet 05/30/16 Unknown Rx 5/325 mg] Lidocaine Viscous 2% 15 ml MM Q4H PRN #100 udc 06/27/16 Unknown Rx Penicillin Vk [Veetids TAB] 250 mg PO QID #28 tablet 06/27/16 Unknown Rx HYDROcodone/APAP 7.5-325 [[place] 1 each PO Q6HR PRN #14 tablet 08/25/16 Unknown Rx 7.5/325] Promethazine [Phenergan] 25 mg [place] Q6HR PRN #14 supp.rect 08/25/16 Unknown Rx Allergies Allergy/AdvReac Type Severity Reaction Status Date / Time codeine Allergy Itching Verified 12/24/16 08:17 fentanyl Allergy Hives Verified 12/24/16 08:17 ketorolac tromethamine Allergy Itching Verified 12/24/16 08:17 [From Toradol] metoclopramide HCl Allergy Hives Verified 12/24/16 08:17 [From Reglan] morphine Allergy Hives Verified 12/24/16 08:17 ondansetron HCl [From Zofran] Allergy Hives Verified 12/24/16 08:17 prochlorperazine edisylate Allergy Hives Verified 12/24/16 08:17 [From Compazine] prochlorperazine maleate Allergy Hives Verified 12/24/16 08:17 [From Compazine] ED Review of Systems ROS: Stated complaint: ABD PAIN Other details as noted in HPI Comment: All other systems reviewed and negative Other: Constitutional: No fevers chills Eyes: No eye pain visual changes ENT: No ear pain or throat pain Neck: Denies pain Respiratory: Denies cough wheezing shortness of breath Cardiovascular: Denies chest pain, palpitations, syncope GI: As per HPI : Denies dysuria Musculoskeletal: Denies back pain, joint swelling Skin: Denies rash, lesions, erythema Neurologic: Denies headache, numbness, weakness Psychiatric: Denies suicidal ideation, hallucinations ED Past Medical Hx - Past Medical History Hx Hypertension: No Hx CVA: No Hx Heart Attack/AMI: No Hx Congestive Heart Failure: No Hx Diabetes: No Hx Deep Vein Thrombosis: No Hx Pulmonary Embolism: No Hx GERD: Yes (Gastroparesis) Hx Liver Disease: No Hx Renal Disease: Yes (renal failure- now in remission) Hx Sickle Cell Disease: No Hx Arthritis: No Hx Headaches / Migraines: No Hx Seizures: No Hx Kidney Stones: Yes Hx Psychiatric Treatment: No Hx Asthma: Yes Hx COPD: No Hx Tuberculosis: No Hx Dementia: No Hx HIV: No Additional medical history: ovarian/lung ca, gastroparesis, IBS, chronic pancereatitis, anemia. (LYMPHOMA LUNG), pyelonephritis, herpes. PORT RIGHT CHEST - Surgical History Hx Coronary Stent: No Hx Open Heart Surgery: No Hx Pacemaker: No Hx Internal Defibrillator: No Hx Cholecystectomy: Yes Hx Appendectomy: No Hx Breast Surgery: No Additional Surgical History: fistula repair, lower bowel dissection, stents (in/ out), hysterectomy. Power port - Social History Smoking Status: Never Smoker Substance Use Type: Prescribed - Medications Home Medications: Home Medications Medication Instructions Recorded Confirmed Last Taken Type Famotidine [Pepcid] 20 mg PO BID #60 tablet 04/26/16 Unknown Rx Promethazine [Phenergan TAB] 25 mg PO Q8HR PRN #20 tab 05/30/16 Unknown Rx oxyCODONE /ACETAMINOPHEN [Percocet 1 tab PO Q6HR PRN #20 tablet 05/30/16 Unknown Rx 5/325 mg] Lidocaine Viscous 2% 15 ml [place] Q4H PRN #100 udc 06/27/16 Unknown Rx Penicillin Vk [Veetids TAB] 250 mg PO QID #28 tablet 06/27/16 Unknown Rx HYDROcodone/APAP 7.5-325 [[place] 1 each PO Q6HR PRN #14 tablet 08/25/16 Unknown Rx 7.5/325] Promethazine [Phenergan] 25 mg [place] Q6HR PRN #14 supp.rect 08/25/16 Unknown Rx ED Physical Exam - General Limitations: No Limitations - Other Other exam information: General: No limitations, moderate distress secondary to pain. Head exam: Atraumatic, normocephalic Eyes exam: Normal appearance, pupils equal reactive to light, extraocular movements intact ENT: Moist mucous membrane, normal oropharynx Neck exam: Normal inspection, full range of motion, no meningismus nontender Respiratory exam: Clear to auscultation bilateral, no wheezes, rales, crackles Cardiovascular: Normal rate and rhythm, normal heart sounds Abdomen: Soft, nondistended, generalized tenderness greatest in the left upper and epigastric area, with normal bowel sounds, no rebound, or guarding, dry heaving at the bedside Extremity: Full range of motion normal inspection no deformity Back: Normal Inspection, full range of motion, right CVA tenderness to palpation Neurologic: Alert, oriented x3, cranial nerves intact, no motor or sensory deficit Psychiatric: normal affect, normal mood Skin: Warm, dry, intact ED Course Vital Signs 12/24/16 12/24/16 08:19 11:28 Temperature 99.1 F Pulse Rate 83 80 Respiratory 17 16 Rate Blood Pressure 133/78 Blood Pressure 135/81 [Left] O2 Sat by Pulse 100 97 Oximetry - Reevaluation(s) Reevaluation #1: 12/24/16 14:03 Patient required multiple doses of Dilaudid, Pepcid, potassium, Phenergan. She received IV hydration and Ativan. She continues to have pain at this time vomiting any ED. 12/24/16 14:04 - Consultations Consultation #1: 12/24/16 13:[address] Argueta with GI. Recommends Flagyl and C. difficile stool studies. Will consult ED Medical Decision Making - Lab Data Result diagrams: 12/24/16 10:00 12/24/16 10:00 Lab Results 12/24/16 12/24/16 12/24/16 Range/Units 10:00 10:00 10:08 WBC 4.5 (4.5-11.0) K/mm3 RBC 3.99 (3.65-5.03) M/mm3 Hgb 10.4 (10.1-14.3) gm/dl Hct 32.8 (30.3-42.9) % MCV 82 (79-97) fl MCH 26 L (28-32) pg MCHC 32 (30-34) % RDW 15.3 H (13.2-15.2) % Plt Count 263 (140-440) K/mm3 Lymph % (Auto) 26.7 (13.4-35.0) % [place] % (Auto) 6.3 (0.0-7.3) % Eos % (Auto) 0.4 (0.0-4.3) % Baso % (Auto) 0.6 (0.0-1.8) % Lymph # 1.2 (1.2-5.4) K/mm3 [place] # 0.3 (0.0-0.8) K/mm3 Eos # 0.0 (0.0-0.4) K/mm3 Baso # 0.0 (0.0-0.1) K/mm3 Seg Neutrophils % 66.0 (40.0-70.0) % Seg Neutrophils # 3.0 (1.8-7.7) K/mm3 Sodium 139 (137-145) mmol/L Potassium 3.5 L (3.6-5.0) mmol/L Chloride 100.3 (98-107) mmol/L Carbon Dioxide 26 (22-30) mmol/L Anion Gap 16 mmol/L BUN 6 L (7-17) mg/dL Creatinine 0.7 (0.7-1.2) mg/dL Estimated GFR > 60 ml/min BUN/Creatinine Ratio 8.57 % Glucose 125 H (65-100) mg/dL Calcium 8.5 (8.4-10.2) mg/dL Total Bilirubin 0.30 (0.1-1.2) mg/dL AST 55 H (5-40) units/L ALT 15 (7-56) units/L Alkaline Phosphatase 79 (35-129) units/L Total Protein 7.0 (6.3-8.2) g/dL Albumin 4.1 (3.9-5) g/dL Albumin/Globulin Ratio 1.4 % Lipase 36 (13-60) units/L Urine Color Colorless (Yellow) Urine Turbidity Clear (Clear) Urine pH 6.0 (5.0-7.0) Ur Specific [place] 1.002 L (1.003-1.030) Urine Protein <15 mg/dl (Negative) mg/dL Urine Glucose (UA) Neg (Negative) mg/dL Urine Ketones Neg (Negative) mg/dL Urine Blood Sm (Negative) Urine Nitrite Neg (Negative) Urine Bilirubin Neg (Negative) Urine Urobilinogen < 2.0 (<2.0) mg/dL Ur Leukocyte Esterase Neg (Negative) Urine WBC (Auto) < 1.0 (0.0-6.0) /HPF Urine RBC (Auto) 1.0 (0.0-6.0) /HPF U Epithel Cells (Auto) < 1.0 (0-13.0) /HPF - Radiology Data Radiology results: report reviewed CT abdomen and pelvis IV contrast: Edema and wall thickening of the ascending colon consistent with acute colitis. This may extend to and involve the transverse colon. Short stricture of the rectal sigmoid colon is of uncertain significance but warrants further investigation. Portal hypertension and gastric varices. No other signs to suggest hepatic cirrhosis. Gastric fold enlargement with differential including gastritis, tumor, and Menetrier's disease. Status post cholecystectomy and hysterectomy - Medical Decision Making Plans admit patient to the hospital further treatment. Antibiotics initiated. Consult ordered. Hospitalist informed. - Differential Diagnosis gastroparesis, chronic pain, pancreatitis, renal colic, UTI, obstruction Critical Care Time: No Critical care attestation.: If time is entered above; I have spent that time in minutes in the direct care of this critically ill patient, excluding procedure time. ED Disposition Clinical Impression: Colitis, Rectal stricture, Vomiting and diarrhea, Abdominal pain Disposition: OP ADMIT IP TO THIS HOSP Is pt being admited?: Yes Condition: Stable Time of Disposition: 14:04 (Dr Joy/hosp)
--- NOTE | 2016-12-24 12:35 | Cat Scan Report ---
CT ABDOMEN AND PELVIS WITH CONTRAST: 12/24/16 08:10:00 CLINICAL: Abdominal pain, nausea and vomiting COMPARISON: 12/05/16 TECHNIQUE: Volumetric acquisition and 1.25 millimeter scan reconstructions after the uneventful intravenous injection of 100 cc Omnipaque 300. Consent was obtained prior to the administration of contrast. Oral contrast was also given. FINDINGS: Abdomen: The wall of the proximal ascending colon is thickened and edematous. It measures 6-10 mm in maximum thickness with the lumen distended by fluid. The more distal ascending colon and transverse colon are collapsed with a suggestion of wall thickening. There is a short stricture at the rectosigmoid junction. The rest of the colon is normal. The small bowel is normal. The appendix and terminal ileum are normal. No ascites and no pneumoperitoneum. No abscess. The liver is normal size with normal overall density and a liver mass. A 5 mm right hepatic hypodensity is probably a benign cyst. Focal fat in the left lobe of the liver at the intersegmental fissure. Normal bile ducts status post cholecystectomy. The portal vein and its branches are relatively large. No evidence of venous thrombosis. The SMV and splenic vein are patent. The gastric coronary vein is relatively large and there appear to be small gastric varices. The gastric folds are large in the body and fundus of the stomach the stomach is otherwise normal. Normal duodenum, pancreas and spleen. The spleen measures 9 cm in length. Normal aorta and inferior vena cava. Normal adrenal glands. The kidneys are normal except for small bilateral cysts. The renal collecting systems and ureters are nondilated. No urinary calculi are identified.No ascites and no pneumoperitoneum. No lymphadenopathy. Pelvis: Normal urinary bladder.Absence of the uterus a normal vaginal cuff. The ovaries are not identified. A short stricture at the rectal sigmoid junction. The rectum and sigmoid colon are otherwise normal. Bone windows demonstrate no bone lesion. IMPRESSION:1. Edema and wall thickening of the ascending colon consistent with acute colitis. This may extend to involve the transverse colon. 2. A short stricture of the rectosigmoid colon is of uncertain significance but warrants further investigation. 3. Evidence of portal hypertension and gastric varices. However, no other signs to suggest hepatic cirrhosis. 4. Gastric fold enlargement with a differential including gastritis, tumor and Menetrier's disease. 5. Status post cholecystectomy and hysterectomy.
[2016-12-24] MEDS ORDERED: PEPCID IV ONE (13:13)
[2016-12-24] MEDS ORDERED: K-DUR PO ONE (13:37)
--- NOTE | 2016-12-24 13:55 | History and Physical Report ---
History of Present Illness Chief complaint: My stomach hurts, i started throwing up last night. History of present illness: 41 YO Female with GERD, Asthma, Ovarian Cancer, IBS, HSV presents to ED for evaluation. Pt states that she had experienced abdominal pain for the past 4 days with worsening symptoms over the past 1 day. Pain 8/10, localized to Left upper abdomen, constant, aching with intermittent sharp component, and radiates to the back. Patient also have a sharp right flank pain. Pain is worse with palpation and movement. No alleviating factors, associated with multiple episodes of nausea, and 2 episodes of loose stools today. Pt denies fever, chills, CP, Palpitations, syncope, BRBPR, hematemesis, ingestion of food/water from new or different sources, or recent ill contacts. Past History Past Medical History: cancer, GERD, other (HSV, Lymphoma, IBS, Asthma) Past Surgical History: cholecystectomy, hysterectomy, Other (Port Right chest. ) Social history: single. denies: smoking, alcohol abuse, prescription drug abuse Family history: hypertension Medications and Allergies Allergies Allergy/AdvReac Type Severity Reaction Status Date / Time codeine Allergy Itching Verified 12/24/16 08:17 fentanyl Allergy Hives Verified 12/24/16 08:17 ketorolac tromethamine Allergy Itching Verified 12/24/16 08:17 [From Toradol] metoclopramide HCl Allergy Hives Verified 12/24/16 08:17 [From Reglan] morphine Allergy Hives Verified 12/24/16 08:17 ondansetron HCl [From Zofran] Allergy Hives Verified 12/24/16 08:17 prochlorperazine edisylate Allergy Hives Verified 12/24/16 08:17 [From Compazine] prochlorperazine maleate Allergy Hives Verified 12/24/16 08:17 [From Compazine] Home Medications Medication Instructions Recorded Confirmed Last Taken Type Famotidine [Pepcid] 20 mg PO BID #60 tablet 04/26/16 12/24/16 12/24/16 Rx Promethazine [Phenergan TAB] 25 mg PO Q8HR PRN #20 tab 05/30/16 12/24/16 Rx oxyCODONE /ACETAMINOPHEN [Percocet 1 tab PO Q6HR PRN #20 tablet 05/30/1612/24/16 Rx 5/325 mg] Lidocaine Viscous 2% 15 ml MM Q4H PRN #100 udc 06/27/16 12/24/16 12/24/16 Rx Penicillin Vk [Veetids TAB] 250 mg PO QID #28 tablet 06/27/16 12/24/16 12/24/16 Rx HYDROcodone/APAP 7.5-325 [[place] 1 each PO Q6HR PRN #14 tablet 08/25/16 12/24/16 12/24/16 Rx 7.5/325] Promethazine [Phenergan] 25 mg [place] Q6HR PRN #14 supp.rect 08/25/16 12/24/1612/24 Rx Active Meds: Active Medications Dextrose/Sodium Chloride (D5ns) 1,000 mls @ 999 mls/hr IV DIRECT VINNIE Last Admin: 12/24/16 11:38 Dose: 999 mls/hr Metronidazole (Flagyl 500 Mg/100 Ml) 500 mg in 100 mls @ 200 mls/hr IV ONCE VINNIE Review of Systems Constitutional: no weight loss, no weight gain, no fever, no chills Ears, nose, mouth and throat: no ear pain, no ear discharge, no tinnitis Breasts: no deferred, no swelling, no mass Cardiovascular: no chest pain, no orthopnea, no palpitations Respiratory: no cough, no cough with sputum, no excessive sputum, no hemoptysis Gastrointestinal: abdominal pain, nausea, no BRBPR, no melena, no hematochezia Genitourinary Female: no dysmenorrhea, no pelvic pain Rectal: no pain, no incontinence, no bleeding Musculoskeletal: no neck stiffness, no neck pain, no shooting arm pain Integumentary: no rash, no pruritis, no redness, no sores Neurological: no head injury, no transient paralysis, no paralysis, no weakness Psychiatric: no anxiety, no memory loss, no change in sleep habits, no sleep disturbances Endocrine: no cold intolerance, no heat intolerance, no polyphagia, no excessive thirst Hematologic/Lymphatic: no easy bruising, no easy bleeding Allergic/Immunologic: no urticaria, no allergic rhinitis, no wheezing Exam - Constitutional Vitals: Temp Pulse Resp BP Pulse Ox 99.1 F 80 16 135/81 97 12/24/16 08:19 12/24/16 11:28 12/24/16 11:28 12/24/16 11:28 12/24/16 11:28 General appearance: Present: no acute distress, well-nourished - EENT Eyes: Present: PERRL ENT: hearing intact, clear oral mucosa - Neck Neck: Present: supple, normal ROM - Respiratory Respiratory effort: normal Respiratory: bilateral: CTA - Cardiovascular Heart Sounds: Present: S1 & S2. Absent: rub, click - Extremities Extremities: pulses symmetrical, No edema Peripheral Pulses: within normal limits - Abdominal General gastrointestinal: Present: soft, tender, distended, normal bowel sounds. Absent: absent bowel sounds, hepatomegaly, splenomegaly Localized gastrointestinal: tender: diffuse, guarding: diffuse, rebound: diffuse Female genitourinary: Present: normal - Integumentary Integumentary: Present: clear, warm, dry - Musculoskeletal Musculoskeletal: gait normal, strength equal bilaterally - Psychiatric Psychiatric: appropriate mood/affect, intact judgment & insight - Neurologic Neurologic: CNII-XII intact, moves all extremities Results - Labs CBC & Chem 7: 12/24/16 10:00 12/24/16 10:00 Labs: Abnormal lab results 12/24/16 12/24/16 12/24/16 Range/Units 10:00 10:00 10:08 MCH 26 L (28-32) pg RDW 15.3 H (13.2-15.2) % Potassium 3.5 L (3.6-5.0) mmol/L BUN 6 L (7-17) mg/dL Glucose 125 H (65-100) mg/dL AST 55 H (5-40) units/L Ur Specific [place] 1.002 L (1.003-1.030) Assessment and Plan - Patient Problems (1) Peritonitis Current Visit: Yes Status: Acute Plan to address problem: IV abx, bowel rest, IVF, supportive care, pain control, serial abdominal exam, repeat lactic acid level (2) GERD (gastroesophageal reflux disease) Current Visit: Yes Status: Acute Qualifiers: Esophagitis presence: E Plan to address problem: ppi therapy when tolerating oral diet. (3) Ovarian cancer Current Visit: Yes Status: Chronic Qualifiers: Laterality: L Plan to address problem: pain control, supportive care. (4) Colitis Current Visit: Yes Status: Acute Plan to address problem: IV abx, supportive care, supportive care, ivf resuscitation, (5) DVT prophylaxis Current Visit: No Status: Acute
[2016-12-24] MEDS ORDERED: ZOFRAN IV PRN (14:12)
[2016-12-24] MEDS ORDERED: DULCOLAX PR PRN (14:12)
[2016-12-24] MEDS ORDERED: MILK OF MAGNESIA PO PRN (14:12)
[2016-12-24] MEDS ORDERED: TYLENOL PO PRN (14:12)
[2016-12-24] MEDS ORDERED: PROVENTIL IH PRN (14:12)
[2016-12-24 15:20] LABS: Urine Drugs of Abuse Note Disclamer
[2016-12-24] MEDS: FLAGYL 500 MG/100 ML 500 MG/100 ML BAG IV SCH ×3 (15:34→22:32)
[2016-12-24] MEDS ORDERED: PHENERGAN PR PRN (16:20)
[2016-12-24] MEDS: DILAUDID IV PRN ×2 (16:29→22:19)
[2016-12-24] MEDS: BENADRYL IV PRN ×2 (16:30→22:19)
[2016-12-24] MEDS ORDERED: BENADRYL ONE (16:35)
[2016-12-24] MEDS: D5/0.45NS 1,000 ML IV SCH (16:46)
[2016-12-24] MEDS: ZOSYN/NS 4.5GM/100ML 4.5 GM/100 ML VIAL IV SCH (22:33)
[2016-12-25] MEDS: BENADRYL IV PRN ×4 (03:35→22:50)
[2016-12-25] MEDS: D5/0.45NS 1,000 ML IV SCH ×2 (03:38→18:16)
[2016-12-25] MEDS: DILAUDID IV PRN ×5 (03:38→22:51)
[2016-12-25] MEDS: FLAGYL 500 MG/100 ML 500 MG/100 ML BAG IV SCH ×2 (05:34→06:37)
[2016-12-25] MEDS: ZOSYN/NS 4.5GM/100ML 4.5 GM/100 ML VIAL IV SCH ×3 (05:34→22:48)
--- NOTE | 2016-12-25 08:18 | Progress Note ---
Assessment and Plan Assessment and plan: 41 YO Female with GERD, Asthma, Ovarian Cancer, IBS, HSV presents to ED for evaluation. Pt states that she had experienced abdominal pain for the past 4 days with worsening symptoms over the past 1 day Acute colitis with peritoneal irritation (does not meet sepsis criteria) continue abx, GI consult -rectosigmoid colon stricture? awaititng GI Reces -continue abx IV abx, bowel rest, IVF, supportive care, pain control, serial abdominal exam, repeat lactic acid level Hypokalemia -repleted and recheck GERD (gastroesophageal reflux disease) continue PPI hx of Ovarian cancer and lymphoma in remission pain control, supportive care. DVT prophylaxis Current Visit: No Status: Acute History Interval history: she is still c/o pain, RUQ and RLQ, 7/10, dull radiates to her back Hospitalist Physical - Physical exam Narrative exam: General: Patient appears well in no distress HEENT: MMM, EOMI cardiac: S1-S2 heard lungs: clear to auscultation, abdomen: soft, RUQ and RLQ tendernesss, nondistended bowel, sounds positive extremities: no edema clubbing or cyanosis Skin: no rash or lesion Neuro: no focal deficit Psych: appropriate behavior and mood, cognition intact - Constitutional Vitals: Temp Pulse Resp BP Pulse Ox 99.2 F 67 18 124/76 98 12/24/16 22:00 12/24/16 22:00 12/25/16 03:38 12/24/16 22:00 12/24/16 22:00 General appearance: Present: no acute distress, well-nourished Results - Labs CBC & Chem 7: 12/24/16 10:00 12/25/16 09:22 Labs: Laboratory Last Values WBC 4.5 K/mm3 (4.5-11.0) 12/24/16 10:00 RBC 3.99 M/mm3 (3.65-5.03) 12/24/16 10:00 Hgb 10.4 gm/dl (10.1-14.3) 12/24/16 10:00 Hct 32.8 % (30.3-42.9) 12/24/16 10:00 MCV 82 fl (79-97) 12/24/16 10:00 MCH 26 pg (28-32) L 12/24/16 10:00 MCHC 32 % (30-34) 12/24/16 10:00 RDW 15.3 % (13.2-15.2) H 12/24/16 10:00 Plt Count 263 K/mm3 (140-440) 12/24/16 10:00 Lymph % (Auto) 26.7 % (13.4-35.0) 12/24/16 10:00 [place] % (Auto) 6.3 % (0.0-7.3) 12/24/16 10:00 Eos % (Auto) 0.4 % (0.0-4.3) 12/24/16 10:00 Baso % (Auto) 0.6 % (0.0-1.8) 12/24/16 10:00 Lymph # 1.2 K/mm3 (1.2-5.4) 12/24/16 10:00 [place] # 0.3 K/mm3 (0.0-0.8) 12/24/16 10:00 Eos # 0.0 K/mm3 (0.0-0.4) 12/24/16 10:00 Baso # 0.0 K/mm3 (0.0-0.1) 12/24/16 10:00 Seg Neutrophils % 66.0 % (40.0-70.0) 12/24/16 10:00 Seg Neutrophils # 3.0 K/mm3 (1.8-7.7) 12/24/16 10:00 Sodium 139 mmol/L (137-145) 12/24/16 10:00 Potassium 3.5 mmol/L (3.6-5.0) L 12/24/16 10:00 Chloride 100.3 mmol/L (98-107) 12/24/16 10:00 Carbon Dioxide 26 mmol/L (22-30) 12/24/16 10:00 Anion Gap 16 mmol/L 12/24/16 10:00 BUN 6 mg/dL (7-17) L 12/24/16 10:00 Creatinine 0.7 mg/dL (0.7-1.2) 12/24/16 10:00 Estimated GFR > 60 ml/min 12/24/16 10:00 BUN/Creatinine Ratio 8.57 % 12/24/16 10:00 Glucose 125 mg/dL (65-100) H 12/24/16 10:00 Lactic Acid 1.50 mmol/L (0.7-2.0) 12/24/16 22:40 Calcium 8.5 mg/dL (8.4-10.2) 12/24/16 10:00 Total Bilirubin 0.30 mg/dL (0.1-1.2) 12/24/16 10:00 AST 55 units/L (5-40) H 12/24/16 10:00 ALT 15 units/L (7-56) 12/24/16 10:00 Alkaline Phosphatase 79 units/L (35-129) 12/24/16 10:00 Total Protein 7.0 g/dL (6.3-8.2) 12/24/16 10:00 Albumin 4.1 g/dL (3.9-5) 12/24/16 10:00 Albumin/Globulin Ratio 1.4 % 12/24/16 10:00 Lipase 36 units/L (13-60) 12/24/16 10:00 Urine Color Colorless (Yellow) 12/24/16 10:08 Urine Turbidity Clear (Clear) 12/24/16 10:08 Urine pH 6.0 (5.0-7.0) 12/24/16 10:08 Ur Specific [place] 1.002 (1.003-1.030) L 12/24/16 10:08 Urine Protein <15 mg/dl mg/dL (Negative) 12/24/16 10:08 Urine Glucose (UA) Neg mg/dL (Negative) 12/24/16 10:08 Urine Ketones Neg mg/dL (Negative) 12/24/16 10:08 Urine Blood Sm (Negative) 12/24/16 10:08 Urine Nitrite Neg (Negative) 12/24/16 10:08 Urine Bilirubin Neg (Negative) 12/24/16 10:08 Urine Urobilinogen < 2.0 mg/dL (<2.0) 12/24/16 10:08 Ur Leukocyte Esterase Neg (Negative) 12/24/16 10:08 Urine WBC (Auto) < 1.0 /HPF (0.0-6.0) 12/24/16 10:08 Urine RBC (Auto) 1.0 /HPF (0.0-6.0) 12/24/16 10:08 U Epithel Cells (Auto) < 1.0 /HPF (0-13.0) 12/24/16 10:08 Urine Opiates Screen Presumptive negative 12/24/16 14:47 Urine Methadone Screen Presumptive negative 12/24/16 14:47 Ur Barbiturates Screen Presumptive negative 12/24/16 14:47 Ur Phencyclidine Scrn Presumptive negative 12/24/16 14:47 Ur Amphetamines Screen Presumptive negative 12/24/16 14:47 U Benzodiazepines Scrn Presumptive negative 12/24/16 14:47 Urine Cocaine Screen Presumptive negative 12/24/16 14:47 U Marijuana (THC) Screen Presumptive negative 12/24/16 14:47 Drugs of Abuse Note Disclamer 12/24/16 14:47
[2016-12-25] MEDS ORDERED: NORCO 7.5/325 PO PRN (08:19)
[2016-12-25 09:45] LABS: Anion Gap 17 mmol/L; BUN/Creatinine Ratio 3.33; Blood Urea Nitrogen 2 mg/dL (7-17); Calcium 8.4 mg/dL (8.4-10.2); Carbon Dioxide 26 mmol/L (22-30); Chloride 103.2 mmol/L (98-107); Glucose 101 mg/dL (65-100); Potassium 3.8 mmol/L (3.6-5.0); Sodium 142 mmol/L (137-145)
[2016-12-25] MEDS ORDERED: PEPCID PO SCH (10:00)
[2016-12-25] MEDS: PEPCID IV SCH ×2 (13:10→22:50)
[2016-12-25] MEDS: LIDOCAINE VISCOUS 2% MM PRN ×2 (13:10→22:49)
--- NOTE | 2016-12-25 23:29 | Gastroenterology Consultation ---
History of Present Illness - Reason for Consult Consult date: 12/25/16 abdominal pain, abnormal CT findings Requesting physician: ANDREINA PARRA - History of Present Illness Ms Aleman is a 41 yo AAF with extensive past medical history as detailed below presents with multiple GI complaints including abdominal pain, change in bowel habits, n/v, and back pain. Patient has had many ED visits in the past couple years and has received multiple prior CT scans. She presented with worsening of her chronic abdominal pain (diffuse) along with diarrhea. She reports having 4 bm's daily for the past 3-4 days (usually once per day). CT scan of abd reviewed which showed abnormal findings in colon including right sided colitis and stricture in recto-sigmoid. She denies abd distention or bloody stools. She reports having a colonoscopy several years ago and being diagnosed with "colitis". Past History Past Medical History: cancer, GERD, other (HSV, Lymphoma, IBS, Asthma) Past Surgical History: cholecystectomy, hysterectomy, Other (Port Right chest. ) Social history: single. denies: smoking, alcohol abuse, prescription drug abuse Family history: hypertension Medications and Allergies Allergies Allergy/AdvReac Type Severity Reaction Status Date / Time codeine Allergy Itching Verified 12/24/16 08:17 fentanyl Allergy Hives Verified 12/24/16 08:17 ketorolac tromethamine Allergy Itching Verified 12/24/16 08:17 [From Toradol] metoclopramide HCl Allergy Hives Verified 12/24/16 08:17 [From Reglan] morphine Allergy Hives Verified 12/24/16 08:17 ondansetron HCl [From Zofran] Allergy Hives Verified 12/24/16 08:17 prochlorperazine edisylate Allergy Hives Verified 12/24/16 08:17 [From Compazine] prochlorperazine maleate Allergy Hives Verified 12/24/16 08:17 [From Compazine] Home Medications Medication Instructions Recorded Confirmed Last Taken Type Famotidine [Pepcid] 20 mg PO BID #60 tablet 04/26/16 12/24/16 12/24/16 Rx Promethazine [Phenergan TAB] 25 mg PO Q8HR PRN #20 tab 05/30/16 12/24/16 Rx oxyCODONE /ACETAMINOPHEN [Percocet 1 tab PO Q6HR PRN #20 tablet 05/30/1612/24/16 Rx 5/325 mg] Lidocaine Viscous 2% 15 ml MM Q4H PRN #100 udc 06/27/16 12/24/16 12/24/16 Rx Penicillin Vk [Veetids TAB] 250 mg PO QID #28 tablet 06/27/16 12/24/16 12/24/16 Rx HYDROcodone/APAP 7.5-325 [[place] 1 each PO Q6HR PRN #14 tablet 08/25/16 12/24/16 12/24/16 Rx 7.5/325] Promethazine [Phenergan] 25 mg [place] Q6HR PRN #14 supp.rect 08/25/16 12/24/1612/24 Rx Active Meds: Active Medications Acetaminophen (Tylenol) 650 mg PO Q4H PRN PRN Reason: Pain MILD(1-3)/Fever >100.5/VIVEROS Acetaminophen/Hydrocodone Bitart ([place] 7.5/325) 1 each PO Q6HR PRN PRN Reason: Pain Albuterol (Proventil) 2.5 mg IH Q4HRT PRN PRN Reason: Shortness Of Breath Bisacodyl (Dulcolax) 10 mg AR QDAY PRN PRN Reason: Constipation unrelieved by MOM Last Admin: 12/25/16 14:03 Dose: 10 mg Diphenhydramine HCl (Benadryl) 25 mg IV Q6H PRN PRN Reason: Itching Last Admin: 12/25/16 22:50 Dose: 25 mg Famotidine (Pepcid) 20 mg IV BID VINNIE Last Admin: 12/25/16 22:50 Dose: 20 mg Hydromorphone HCl (Dilaudid) 0.5 mg IV Q6H PRN PRN Reason: Pain, Moderate (4-6) Last Admin: 12/25/16 22:51 Dose: 0.5 mg Dextrose/Sodium Chloride (D5/0.45ns) 1,000 mls @ 100 mls/hr IV DIRECT VINNIE Last Admin: 12/25/16 18:16 Dose: 100 mls/hr Piperacillin Sod/Tazobactam Sod (Zosyn/Ns 4.5gm/100ml) 4.5 gm in 100 mls @ 200 mls/hr IV Q8HR VINNIE PRN Reason: Protocol Last Admin: 12/25/16 22:48 Dose: 200 mls/hr Lidocaine HCl (Lidocaine Viscous 2%) 15 ml MM Q4H PRN PRN Reason: Pain Last Admin: 12/25/16 22:49 Dose: 15 ml Magnesium Hydroxide (Milk Of Magnesia) 30 ml PO Q4H PRN PRN Reason: Constipation Promethazine HCl (Phenergan) 25 mg AR Q6H PRN PRN Reason: Nausea And Vomiting Last Admin: 12/24/16 16:47 Dose: 25 mg Review of Systems - Review of Systems All systems: negative (weight loss, fatigue/weakness, joint/muscle pain, mouth pain) Exam - Constitutional Vital Signs: Temp Pulse Resp BP Pulse Ox 99.9 F H 70 18 135/83 100 12/25/16 20:00 12/25/16 20:00 12/25/16 20:00 12/25/16 20:00 12/25/16 20:00 General appearance: no acute distress - EENT Eyes: PERRL, EOM intact ENT: clear oral mucosa, dentition normal - Respiratory Respiratory effort: normal Respiratory: bilateral: CTA - Cardiovascular Rhythm: regular Heart Sounds: Present: S1 & S2 - Gastrointestinal General gastrointestinal: Present: soft, tender (+ diffuse tenderness to mild palpation), non-distended - Integumentary Integumentary: Present: clear, warm - Neurologic Neurological: alert and oriented x3 - Psychiatric Psychiatric: appropriate mood/affect - Labs CBC & Chem 7: 12/24/16 10:00 12/25/16 09:22 Lab Results: Laboratory Results - last 24 hr 12/25/16 09:22 Sodium 142 Potassium 3.8 Chloride 103.2 Carbon Dioxide 26 Anion Gap 17 BUN 2 L Creatinine 0.6 L Estimated GFR > 60 BUN/Creatinine Ratio 3.33 Glucose 101 H Calcium 8.4 - Imaging CT Scan: report reviewed Assessment and Plan 1. Colitis - unclear etiology. ddx includes infectious, ischemia/vascular etiology, and IBD -stool studies pending consider CTA of abd 2. Recto-sigmoid stricture - non-obstructed clinically. Etiology and significance unclear. this could be an inflammatory stricture, 2/2 diverticular disease, IBD. Neoplasm will needed to be ruled out vinay given h/o ovarian cancer and lymphoma. 3. Chronic abdominal pain - many of her GI symptoms appear chronic, and likely has component of functional celso pain. However she does have new findings on CT scan. Would avoid narcotics as able.
--- NOTE | 2016-12-26 03:09 | Admit Criteria Form ---
Admission Criteria Documentation: ABDOMINAL PAIN Clinical Indications for Admission to Inpatient Care ( napaimute/check or initial the applicable condition/criteria): Admission is indicated for ANY ONE of the following (1)(2)(3)(4)(5)(6): [ ]I. Surgery needed that cannot be performed on ambulatory basis [ ]II. Peritoneal signs present (eg, rebound tenderness, rigidity) [ ]III. Evaluation requires patient to not eat or drink for extended period ( eg, more than 24 hours). [X ]IV. Inpatient admission required[B] rather than observation care (see Abdominal Pain: Observation Care guideline as appropriate) because of ANY ONE of the following(7)(8)(9): [ ] a) Hemodynamic instability [ ]b) Severe pain requiring acute inpatient management [X ]c) Identification of etiology or finding that requires inpatient care (eg, aortic dissection, free air,bowel ischemia)(10) [ ]d) Absent bowel sounds with complete ileus (11) [ ]e) Signs of intestinal obstruction[C] [ ]f) Suspected toxic megacolon [ ]g) Severe electrolyte abnormalities requiring inpatient care [ ]h) High fever or infection requiring inpatient admission as indicated by ANY ONE of the following (12)(13): [ ]i) Appropriate outpatient or observation care antimicrobial treatment unavailable, not effective, or not feasible [ ]ii) Documented bacteremia [ ]iii) Temperature greater than 104.9 degrees F (40.5 degrees C) (oral) [ ]iv) Temperature greater than 103.1 degrees F (39.5 degrees C) ( oral) or less than 96.8 degrees F (36 degrees C) (rectal) that does not respond to all emergency treatment measures [ ]i) IV fluid required rather than oral rehydration to replace significant ongoing (eg, for greater than 24 hours) losses (greater than 3 L/m2 per day)(14)(15) [ ]j) Percutaneous or open drainage (eg, abscess, biliary tract) procedures [ ]k) Parenteral nutrition regimen that must be implemented on inpatient basis [ ]l) Other condition, treatment, or monitoring requiring inpatient admission Extended stay beyond goal length of stay may be needed for (1)(3)(4)(10)(16): [ ]a) Surgery (e.g., colectomy, revascularization procedure) [ ]b) Persistent abdominal pain with suspected intra-abdominal process [ ]c) Diagnosed condition requiring continued stay (e.g., pancreatitis, complicated diverticulitis) The original [facility] [email or web address] content created by [facility] has been revised. The portions of the content which have been revised are identified through the use of italic text or in bold, and [facility] has neither reviewed nor approved the modified material.All other unmodified content is copyright [facility]. Please see references footnoted in the original [facility] edition 2017 Admission Criteria Met: Yes
[2016-12-26] MEDS: BENADRYL IV PRN ×2 (05:25→10:22)
[2016-12-26] MEDS: DILAUDID IV PRN ×2 (05:26→10:20)
[2016-12-26] MEDS: ZOSYN/NS 4.5GM/100ML 4.5 GM/100 ML VIAL IV SCH (07:44)
[2016-12-26] MEDS: D5/0.45NS 1,000 ML IV SCH (07:48)
--- NOTE | 2016-12-26 08:33 | Progress Note ---
Assessment and Plan Assessment and plan: 41 YO Female with GERD, Asthma, Ovarian Cancer, IBS, HSV presents to ED for evaluation. Pt states that she had experienced abdominal pain for the past 4 days with worsening symptoms over the past 1 day Acute colitis with peritoneal irritation (does not meet sepsis criteria) continue abx, GI consult -rectosigmoid colon stricture, likely due to inflammation -GI recs appreciated, obtain CTA A/p -will need to r/o tumor in the area given hx of ca -continue abx IV abx, bowel rest, IVF, supportive care, pain control, serial abdominal exam, repeat lactic acid level Hypokalemia -repleted and recheck GERD (gastroesophageal reflux disease) continue PPI hx of Ovarian cancer and lymphoma in remission pain control, supportive care. DVT prophylaxis Current Visit: No Status: Acute Hospitalist Physical - Constitutional Vitals: Temp Pulse Resp BP Pulse Ox 99.9 F H 70 18 135/83 100 12/25/16 20:00 12/25/16 20:00 12/25/16 20:00 12/25/16 20:00 12/25/16 20:00 General appearance: Present: no acute distress, well-nourished Results - Labs CBC & Chem 7: 12/24/16 10:00 12/25/16 09:22 Labs: Laboratory Last Values WBC 4.5 K/mm3 (4.5-11.0) 12/24/16 10:00 RBC 3.99 M/mm3 (3.65-5.03) 12/24/16 10:00 Hgb 10.4 gm/dl (10.1-14.3) 12/24/16 10:00 Hct 32.8 % (30.3-42.9) 12/24/16 10:00 MCV 82 fl (79-97) 12/24/16 10:00 MCH 26 pg (28-32) L 12/24/16 10:00 MCHC 32 % (30-34) 12/24/16 10:00 RDW 15.3 % (13.2-15.2) H 12/24/16 10:00 Plt Count 263 K/mm3 (140-440) 12/24/16 10:00 Lymph % (Auto) 26.7 % (13.4-35.0) 12/24/16 10:00 [place] % (Auto) 6.3 % (0.0-7.3) 12/24/16 10:00 Eos % (Auto) 0.4 % (0.0-4.3) 12/24/16 10:00 Baso % (Auto) 0.6 % (0.0-1.8) 12/24/16 10:00 Lymph # 1.2 K/mm3 (1.2-5.4) 12/24/16 10:00 [place] # 0.3 K/mm3 (0.0-0.8) 12/24/16 10:00 Eos # 0.0 K/mm3 (0.0-0.4) 12/24/16 10:00 Baso # 0.0 K/mm3 (0.0-0.1) 12/24/16 10:00 Seg Neutrophils % 66.0 % (40.0-70.0) 12/24/16 10:00 Seg Neutrophils # 3.0 K/mm3 (1.8-7.7) 12/24/16 10:00 Sodium 142 mmol/L (137-145) 12/25/16 09:22 Potassium 3.8 mmol/L (3.6-5.0) 12/25/16 09:22 Chloride 103.2 mmol/L (98-107) 12/25/16 09:22 Carbon Dioxide 26 mmol/L (22-30) 12/25/16 09:22 Anion Gap 17 mmol/L 12/25/16 09:22 BUN 2 mg/dL (7-17) L 12/25/16 09:22 Creatinine 0.6 mg/dL (0.7-1.2) L 12/25/16 09:22 Estimated GFR > 60 ml/min 12/25/16 09:22 BUN/Creatinine Ratio 3.33 % 12/25/16 09:22 Glucose 101 mg/dL (65-100) H 12/25/16 09:22 Lactic Acid 1.50 mmol/L (0.7-2.0) 12/24/16 22:40 Calcium 8.4 mg/dL (8.4-10.2) 12/25/16 09:22 Total Bilirubin 0.30 mg/dL (0.1-1.2) 12/24/16 10:00 AST 55 units/L (5-40) H 12/24/16 10:00 ALT 15 units/L (7-56) 12/24/16 10:00 Alkaline Phosphatase 79 units/L (35-129) 12/24/16 10:00 Total Protein 7.0 g/dL (6.3-8.2) 12/24/16 10:00 Albumin 4.1 g/dL (3.9-5) 12/24/16 10:00 Albumin/Globulin Ratio 1.4 % 12/24/16 10:00 Lipase 36 units/L (13-60) 12/24/16 10:00 Urine Color Colorless (Yellow) 12/24/16 10:08 Urine Turbidity Clear (Clear) 12/24/16 10:08 Urine pH 6.0 (5.0-7.0) 12/24/16 10:08 Ur Specific [place] 1.002 (1.003-1.030) L 12/24/16 10:08 Urine Protein <15 mg/dl mg/dL (Negative) 12/24/16 10:08 Urine Glucose (UA) Neg mg/dL (Negative) 12/24/16 10:08 Urine Ketones Neg mg/dL (Negative) 12/24/16 10:08 Urine Blood Sm (Negative) 12/24/16 10:08 Urine Nitrite Neg (Negative) 12/24/16 10:08 Urine Bilirubin Neg (Negative) 12/24/16 10:08 Urine Urobilinogen < 2.0 mg/dL (<2.0) 12/24/16 10:08 Ur Leukocyte Esterase Neg (Negative) 12/24/16 10:08 Urine WBC (Auto) < 1.0 /HPF (0.0-6.0) 12/24/16 10:08 Urine RBC (Auto) 1.0 /HPF (0.0-6.0) 12/24/16 10:08 U Epithel Cells (Auto) < 1.0 /HPF (0-13.0) 12/24/16 10:08 Urine Opiates Screen Presumptive negative 12/24/16 14:47 Urine Methadone Screen Presumptive negative 12/24/16 14:47 Ur Barbiturates Screen Presumptive negative 12/24/16 14:47 Ur Phencyclidine Scrn Presumptive negative 12/24/16 14:47 Ur Amphetamines Screen Presumptive negative 12/24/16 14:47 U Benzodiazepines Scrn Presumptive negative 12/24/16 14:47 Urine Cocaine Screen Presumptive negative 12/24/16 14:47 U Marijuana (THC) Screen Presumptive negative 12/24/16 14:47 Drugs of Abuse Note Disclamer 12/24/16 14:47
[2016-12-26 09:00] VITALS: BP 125/77
[2016-12-26] MEDS ORDERED: NACL ONE (09:48)
[2016-12-26] MEDS: PEPCID IV SCH (10:02)
[2016-12-26] MEDS ORDERED: PERCOCET 5/325 PO PRN (12:12)
[2016-12-26] MEDS ORDERED: DILAUDID IV PRN (12:12)
--- NOTE | 2016-12-26 12:54 | Discharge Summary ---
Providers - Providers Date of Admission: 12/24/16 15:40 Attending physician: ANDREINA PARRA MD Primary care physician: [employer] Hospitalization Condition: Stable Hospital course: 41 YO Female with GERD, Asthma, Ovarian Cancer, IBS, HSV presented with abdominal pain. She had CT of her abdomen that showed acute colitis with peritoneal irritation. She received IV antibiotics, IV fluids, electrolytes were repleted. Given her history of cancer she will need endoscopy when she is clinically improved and has completed her antibiotics. Endoscopy will not be done at this time as she is at risk for perforation given acute colitis. Patient clinically improved and is being sent home on a course of antibiotics. Discharge diagnoses Acute colitis with peritoneal irritation Hypokalemia GERD (gastroesophageal reflux disease) hx of Ovarian cancer and lymphoma in remission Moderate malnutrition Disposition: DC-01 TO HOME OR SELFCARE Time spent for discharge: 33 minutes Core Measure Documentation - Palliative Care Palliative Care/ Comfort Measures: Not Applicable - Core Measures Any of the following diagnoses?: none Exam - Constitutional Vitals: Temp Pulse Resp BP Pulse Ox 98.7 F 18 L 98 H 125/77 98 12/26/16 08:00 12/26/16 08:00 12/26/16 08:00 12/26/16 08:00 12/26/16 08:00 General appearance: Present: no acute distress, cachectic - EENT Eyes: Present: PERRL ENT: hearing intact, clear oral mucosa - Neck Neck: Present: supple, normal ROM - Respiratory Respiratory effort: normal Respiratory: bilateral: CTA - Cardiovascular Heart Sounds: Present: S1 & S2. Absent: rub, click - Extremities Extremities: pulses symmetrical, No edema Peripheral Pulses: within normal limits - Abdominal General gastrointestinal: Present: soft, non-tender, non-distended, normal bowel sounds Female genitourinary: Present: normal - Integumentary Integumentary: Present: clear, warm, dry - Musculoskeletal Musculoskeletal: gait normal, strength equal bilaterally - Psychiatric Psychiatric: appropriate mood/affect, intact judgment & insight - Neurologic Neurologic: CNII-XII intact, moves all extremities Plan Follow up with: PRIMARY CARE, [Primary Care Provider] - 7 Days KATHY ELAINE MD [Staff Physician] - 7 Days Prescriptions: Ciprofloxacin HCl [Ciprofloxacin TAB] 500 mg PO Q12H #10 tab Lidocaine Viscous 2% 15 ml MM Q4H PRN #100 udc PRN Reason: Pain metroNIDAZOLE [Flagyl] 500 mg PO Q8HR #14 tablet oxyCODONE /ACETAMINOPHEN [Percocet 5/325 mg] 1 tab PO Q6HR PRN #20 tablet PRN Reason: Pain Promethazine [Phenergan SUPPOS] 25 mg DE Q6HR PRN #14 supp.rect PRN Reason: nausea
--- NOTE | 2016-12-26 14:28 | Gastroenterology Progress Note ---
Assessment and Plan GI: pt w/ improved symptoms - complete antibiotics as outpt - ok to d/c from GI standpoint - call if needed Subjective Date of service: 12/26/16 Interval history: - reports feeling better, abdominal pain improved Objective - Constitutional Vitals: Temp Pulse Resp BP Pulse Ox 98.7 F 18 L 98 H 125/77 98 12/26/16 08:00 12/26/16 08:00 12/26/16 08:00 12/26/16 08:00 12/26/16 08:00 General appearance: no acute distress - Respiratory Respiratory: bilateral: CTA - Cardiovascular Rhythm: regular Heart Sounds: Present: S1 & S2 - Gastrointestinal General gastrointestinal: Present: soft, non-tender, non-distended - Labs CBC & Chem 7: 12/24/16 10:00 12/25/16 09:22
[2016-12-26] MEDS ORDERED: TRIPLE ANTIBIOTIC TP ONE (15:14)
== END 2016-12-26 15:40 | disposition home or self-care (01) | DRG 391 ==
LOC: ED 08:10 → 3A 15:40
PROVIDERS: ADMIT Internal Medicine; ATTEND Internal Medicine
DX: K52.9 Noninfective gastroenteritis and colitis, unspecified (principal); K65.9 Peritonitis, unspecified; E87.6 Hypokalemia; K31.84 Gastroparesis; E44.0 Moderate protein-calorie malnutrition; K86.1 Other chronic pancreatitis; K21.9 Gastro-esophageal reflux disease without esophagitis; G89.29 Other chronic pain; N39.0 Urinary tract infection, site not specified; J45.909 Unspecified asthma, uncomplicated; Z82.49 Family history of ischemic heart disease and other diseases of the circulatory system; Z85.72 Personal history of non-Hodgkin lymphomas; Z85.43 Personal history of malignant neoplasm of ovary; Z90.710 Acquired absence of both cervix and uterus; Z88.8 Allergy status to other drugs, medicaments and biological substances; Z90.49 Acquired absence of other specified parts of digestive tract; Z88.5 Allergy status to narcotic agent; Z68.23 Body mass index [BMI] 23.0-23.9, adult
CPT/HCPCS: 36415; 74177; 80048; 80053; 80307; 81001; 82140; 83690; 85025; A6250; J1170; J1200; J2060; J2543; J7042; Q9967

== ENCOUNTER 2016-12-30 07:30 | Inpatient (IN) | payer OTHER ==
[2016-12-30 09:15] LABS: Bacteria,Urine 1+ /HPF (Negative); Bilirubin,Urine NEG (Negative); Blood,Urine NEG (Negative); Ketones,Urine NEG (Negative); Leukocyte Esterase,Urine NEG (Negative); Nitrite,Urine NEG (Negative); Protein,Urine <15 mg/dL mg/dL (Negative); Urobilinogen,Urine < 2.0 mg/dL (<2.0)
[2016-12-30 09:20] VITALS: BP 108/65
[2016-12-30 09:59] LABS: Basophils % (Auto) 0.9 % (0.0-1.8); Eosinophils % (Auto) 1.1 % (0.0-4.3); Hematocrit 29.5 % (30.3-42.9); Hemoglobin 9.3 gm/dl (10.1-14.3); Mean Corpuscular HGB Conc 32 % (30-34); Mean Corpuscular Volume 82 fl (79-97); Platelet Count 246 K/mm3 (140-440); Red Blood Count 3.61 M/mm3 (3.65-5.03); Red Cell Distribution Width 15.5 % (13.2-15.2); White Blood Count 6.4 K/mm3 (4.5-11.0)
[2016-12-30 10:00] LABS: Mean Corpuscular Hemoglobin 26 pg (28-32)
[2016-12-30 10:15] LABS: Alanine Aminotransferase 11 units/L (7-56); Albumin 4.1 g/dL (3.9-5); Albumin/Globulin Ratio 1.5 %; Alkaline Phosphatase 64 units/L (35-129); Anion Gap 16 mmol/L; Bilirubin,Total < 0.20 mg/dL (0.1-1.2); Blood Urea Nitrogen 12 mg/dL (7-17); Calcium 7.9 mg/dL (8.4-10.2); Carbon Dioxide 25 mmol/L (22-30); Chloride 107.4 mmol/L (98-107); Glucose 82 mg/dL (65-100); Lipase 71 units/L (13-60); Potassium 3.5 mmol/L (3.6-5.0); Sodium 145 mmol/L (137-145); Total Protein 6.8 g/dL (6.3-8.2)
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
[2016-12-30] MEDS ORDERED: PHENERGAN PR ONE (11:20)
[2016-12-30] MEDS ORDERED: DILAUDID IV ONE (11:20)
[2016-12-30] MEDS ORDERED: BENADRYL IV ONE (11:20)
[2016-12-30] MEDS ORDERED: LEVAQUIN 750MG/150ML 750 MG/150 ML BAG IV ONE (11:21)
--- NOTE | 2016-12-30 12:31 | Admit Criteria Form ---
Admission Criteria Documentation: ABDOMINAL PAIN Clinical Indications for Admission to Inpatient Care ( chipewwa/check or initial the applicable condition/criteria): Admission is indicated for ANY ONE of the following (1)(2)(3)(4)(5)(6): [ ]I. Surgery needed that cannot be performed on ambulatory basis [ ]II. Peritoneal signs present (eg, rebound tenderness, rigidity) [ ]III. Evaluation requires patient to not eat or drink for extended period ( eg, more than 24 hours). [X ]IV. Inpatient admission required[B] rather than observation care (see Abdominal Pain: Observation Care guideline as appropriate) because of ANY ONE of the following(7)(8)(9): [ ] a) Hemodynamic instability [ ]b) Severe pain requiring acute inpatient management [ ]c) Identification of etiology or finding that requires inpatient care (eg, aortic dissection, free air,bowel ischemia)(10) [ ]d) Absent bowel sounds with complete ileus (11) [ ]e) Signs of intestinal obstruction[C] [ ]f) Suspected toxic megacolon [ ]g) Severe electrolyte abnormalities requiring inpatient care [ ]h) High fever or infection requiring inpatient admission as indicated by ANY ONE of the following (12)(13): [ ]i) Appropriate outpatient or observation care antimicrobial treatment unavailable, not effective, or not feasible [ ]ii) Documented bacteremia [ ]iii) Temperature greater than 104.9 degrees F (40.5 degrees C) (oral) [ ]iv) Temperature greater than 103.1 degrees F (39.5 degrees C) ( oral) or less than 96.8 degrees F (36 degrees C) (rectal) that does not respond to all emergency treatment measures [ ]i) IV fluid required rather than oral rehydration to replace significant ongoing (eg, for greater than 24 hours) losses (greater than 3 L/m2 per day)(14)(15) [ ]j) Percutaneous or open drainage (eg, abscess, biliary tract) procedures [ ]k) Parenteral nutrition regimen that must be implemented on inpatient basis [ X]l) Other condition, treatment, or monitoring requiring inpatient admission Extended stay beyond goal length of stay may be needed for (1)(3)(4)(10)(16): [ ]a) Surgery (e.g., colectomy, revascularization procedure) [ ]b) Persistent abdominal pain with suspected intra-abdominal process [ ]c) Diagnosed condition requiring continued stay (e.g., pancreatitis, complicated diverticulitis) The original [facility] [employer] content created by [facility] has been revised. The portions of the content which have been revised are identified through the use of italic text or in bold, and [facility] has neither reviewed nor approved the modified material.All other unmodified content is copyright [facility]. Please see references footnoted in the original [employer] [facility] edition 2017 Admission Criteria Met: Yes
[2016-12-30] MEDS ORDERED: FLUSH HEPARIN IV ONE (13:45)
[2016-12-30] MEDS ORDERED: FLAGYL 500 MG/100 ML 500 MG/100 ML BAG IV SCH (14:00)
== END 2016-12-30 13:58 | disposition left against medical advice (07) | DRG 392 ==
LOC: ED 07:30 → 3A 12:13
PROVIDERS: ADMIT Internal Medicine; ATTEND Internal Medicine
DX: K52.9 Noninfective gastroenteritis and colitis, unspecified (principal); K21.9 Gastro-esophageal reflux disease without esophagitis; J45.909 Unspecified asthma, uncomplicated; K86.1 Other chronic pancreatitis; Z90.49 Acquired absence of other specified parts of digestive tract; Z85.72 Personal history of non-Hodgkin lymphomas; Z85.43 Personal history of malignant neoplasm of ovary; Z88.5 Allergy status to narcotic agent; Z87.442 Personal history of urinary calculi; Z90.710 Acquired absence of both cervix and uterus
CPT/HCPCS: 36415; 80053; 81001; 83690; 85025; 96374; 96375; J1170; J1200; J1642; J1956

== ENCOUNTER 2017-01-19 08:02 | Emergency (ER) | payer OTHER ==
[2017-01-19] MEDS ORDERED: NACL 0.9% 1000 ML 2,000 ML IV ONE (09:24)
[2017-01-19] MEDS ORDERED: HALDOL IM ONE (09:24)
[2017-01-19 09:37] LABS: Bacteria,Urine 1+ /HPF (Negative); Bilirubin,Urine NEG (Negative); Blood,Urine NEG (Negative); Ketones,Urine NEG (Negative); Leukocyte Esterase,Urine NEG (Negative); Mucus,Urine FEW /HPF; Nitrite,Urine NEG (Negative); Protein,Urine <15 mg/dL mg/dL (Negative); Urobilinogen,Urine < 2.0 mg/dL (<2.0)
[2017-01-19 10:46] LABS: Basophils % (Auto) 0.9 % (0.0-1.8); Eosinophils % (Auto) 1.2 % (0.0-4.3); Hematocrit 30.4 % (30.3-42.9); Hemoglobin 9.8 gm/dl (10.1-14.3); Mean Corpuscular HGB Conc 32 % (30-34); Mean Corpuscular Hemoglobin 26 pg (28-32); Mean Corpuscular Volume 81 fl (79-97); Platelet Count 224 K/mm3 (140-440); Red Blood Count 3.73 M/mm3 (3.65-5.03); Red Cell Distribution Width 15.5 % (13.2-15.2); White Blood Count 6.2 K/mm3 (4.5-11.0)
[2017-01-19 11:06] LABS: Alanine Aminotransferase 9 units/L (7-56); Albumin 3.8 g/dL (3.9-5); Albumin/Globulin Ratio 1.4 %; Alkaline Phosphatase 59 units/L (35-129); Anion Gap 16 mmol/L; BUN/Creatinine Ratio 18.33; Bilirubin,Total < 0.20 mg/dL (0.1-1.2); Blood Urea Nitrogen 11 mg/dL (7-17); Calcium 8.6 mg/dL (8.4-10.2); Carbon Dioxide 26 mmol/L (22-30); Chloride 106.6 mmol/L (98-107); Glucose 88 mg/dL (65-100); Lipase 133 units/L (13-60); Potassium 3.9 mmol/L (3.6-5.0); Sodium 145 mmol/L (137-145); Total Protein 6.5 g/dL (6.3-8.2)
[2017-01-19 11:40] VITALS: BP 114/69
--- NOTE | 2017-01-19 14:17 | Emergency Department Report ---
ED Abdominal Pain HPI - General Chief Complaint: Abdominal Pain Stated Complaint: ABD PAIN Time Seen by Provider: 01/19/17 08:43 Source: patient Mode of arrival: Stretcher Limitations: No Limitations - History of Present Illness MD Complaint: abdominal pain -: Gradual, days(s) Location: diffuse Radiation: none Migration to: no migration Severity: moderate Severity scale (0 -10): 3 Quality: aching Consistency: intermittent Improves With: nothing Worsens With: nothing Context: other (feels like past colitis or pancreatitis) Associated Symptoms: nausea, vomiting, other (patient reports that she is typically given IV dilaudid for her symptoms). denies: diarrhea, fever, chills , constipation, dysuria, hematemesis, hematochezia, melena, hematuria, anorexia , syncope - Related Data Home Medications Medication Instructions Recorded Confirmed Last Taken No Known Home Medications [No 12/30/16 12/30/16 Unknown Reported Home Medications] Allergies Allergy/AdvReac Type Severity Reaction Status Date / Time codeine Allergy Itching Verified 12/24/16 08:17 fentanyl Allergy Hives Verified 12/24/16 08:17 ketorolac tromethamine Allergy Itching Verified 12/24/16 08:17 [From Toradol] metoclopramide HCl Allergy Hives Verified 12/24/16 08:17 [From Reglan] morphine Allergy Hives Verified 12/24/16 08:17 ondansetron HCl [From Zofran] Allergy Hives Verified 12/24/16 08:17 prochlorperazine edisylate Allergy Hives Verified 12/24/16 08:17 [From Compazine] prochlorperazine maleate Allergy Hives Verified 12/24/16 08:17 [From Compazine] ED Review of Systems ROS: Stated complaint: ABD PAIN Other details as noted in HPI Other: GENERAL: No weight change, fatigue, weakness, fever, chills, or night sweats SKIN: No changes in skin or hair, no itching, no rashes, no jaundice HEAD: No trauma, headache, or visual changes EYES: No blurriness, tearing, itching, acute visual loss, conjunctival discoloration, or scleral icterus EARS: No hearing loss, tinnitus, vertigo, or earache NOSE: No rhinorrhea, stuffiness, sneezing, itching, or epistaxis MOUTH: No bleeding gums, hoarseness, sore throat, or swelling CARDIAC: No new murmur, chest pain, palpitations, dyspnea on exertion, orthopnea , PND, or edema RESPIRATORY: No shortness of breath, wheeze, cough, sputum production, hemoptysis, pneumonia, asthma, bronchitis, or emphysema GI: Abdominal pain, n/V. No dysphagia, change in bowel frequency, diarrhea, constipation, bleeding, hematemesis, melena, hematochezia URINARY: No frequency, urgency, polyuria, dysuria, hematuria, or incontinence MUSCULOSKELETAL: No muscle weakness, joint stiffness, decrease in range of motion, redness, swelling NEUROLOGIC: No loss of sensation, numbness, tingling, tremors, weakness, paralysis, seizures HEMATOLOGIC: No anemia, easy bruising, bleeding, petechiae, or purpura ENDOCRINE: No hot or cold intolerance, sweating, polyuria, polydipsia or, polyphagia no thyroid problems PSYCHIATRIC: No change in mood, no anxiety, no depression GENITAL: Female: No change in menstrual regularity, no frequency or dysmenorrhea, no discharge, no bleeding ED Past Medical Hx - Past Medical History Hx Hypertension: No Hx CVA: No Hx Heart Attack/AMI: No Hx Congestive Heart Failure: No Hx Diabetes: No Hx Deep Vein Thrombosis: No Hx Pulmonary Embolism: No Hx GERD: Yes (Gastroparesis) Hx Liver Disease: No Hx Renal Disease: Yes (renal failure- now in remission) Hx Sickle Cell Disease: No Hx Arthritis: No Hx Headaches / Migraines: No Hx Seizures: No Hx Kidney Stones: Yes Hx Psychiatric Treatment: No Hx Asthma: Yes Hx COPD: No Hx Tuberculosis: No Hx Dementia: No Hx HIV: No Additional medical history: ovarian/lung ca, gastroparesis, IBS, chronic pancereatitis, anemia. (LYMPHOMA LUNG), pyelonephritis, herpes. PORT RIGHT CHEST - Surgical History Hx Coronary Stent: No Hx Open Heart Surgery: No Hx Pacemaker: No Hx Internal Defibrillator: No Hx Cholecystectomy: Yes Hx Appendectomy: No Hx Breast Surgery: No Additional Surgical History: fistula repair, lower bowel dissection, stents (in/ out), hysterectomy. Power port - Social History Smoking Status: Never Smoker Substance Use Type: None - Medications Home Medications: Home Medications Medication Instructions Recorded Confirmed Last Taken Type No Known Home Medications [No 12/30/16 12/30/16 Unknown History Reported Home Medications] ED Physical Exam - General Limitations: No Limitations - Other Other exam information: GENERAL: Patient in no acute distress HEAD: Normocephalic, atraumatic EYES: PERRLA, EOM intact, no scleral icterus, visual avelar and acuity wnl NOSE: No tenderness, discharge, sinus tenderness MOUTH: No erythema, bleeding, exudate HEART: Regular rate and rhythm, no murmur, S1-S2 are auscultated, pulses are symmetric LUNGS: bilateral breath sounds. No wheezing, rales, rhonchi ABDOMEN: Normal bowel sounds, no tenderness, no rebound, no guarding, no masses , no CVA tenderness MUSCULOSKELETAL: Normal joint range of motion, no redness, no swelling, no tenderness NEUROLOGIC: GCS 15, Alert and Oriented x3, Cranial nerves intact, normal sensation, normal strength, normal gait, no cerebellar deficit PSYCHIATRIC: Patient argumentative with staff requesting dilaudid. No homicidal or suicidal ideation, no anxiety, no depression, no hallucinations SKIN: Skin is warm and dry, no wounds, no rashes ED Course Vital Signs 01/19/17 01/19/17 01/19/17 08:13 08:16 08:22 Temperature Pulse Rate Respiratory Rate Blood Pressure 114/69 114/69 114/69 O2 Sat by Pulse 97 81 L Oximetry 01/19/17 01/19/17 01/19/17 08:34 08:35 08:58 Temperature 99.4 F Pulse Rate 97 H Respiratory 20 Rate Blood Pressure 114/69 114/79 114/69 O2 Sat by Pulse 79 L 100 85 Oximetry 01/19/17 01/19/17 01/19/17 09:08 09:32 09:56 Temperature Pulse Rate Respiratory Rate Blood Pressure 114/69 114/69 114/69 O2 Sat by Pulse 85 89 82 L Oximetry 01/19/17 01/19/17 01/19/17 10:26 10:30 10:36 Temperature Pulse Rate Respiratory Rate Blood Pressure 114/69 114/69 114/69 O2 Sat by Pulse 76 L 65 L 64 L Oximetry ED Medical Decision Making - Lab Data Result diagrams: 01/19/17 Unknown 01/19/17 Unknown - Medical Decision Making Patient eloped from ER prior to completion of evaluation. last seen stable condition by staff, AOx3. Critical care attestation.: If time is entered above; I have spent that time in minutes in the direct care of this critically ill patient, excluding procedure time. ED Disposition Clinical Impression: Abdominal pain Qualifiers: Abdominal location: unspecified location Qualified Code(s): R10.9 - Unspecified abdominal pain Disposition: ELOPED Is pt being admited?: No Condition: Stable Instructions: Abdominal Pain (ED) Referrals: PRIMARY CARE, [Primary Care Provider] - 3-5 Days
== END 2017-01-19 11:50 | disposition left against medical advice (07) ==
LOC: ED 08:02
DX: R10.84 Generalized abdominal pain (principal); K21.9 Gastro-esophageal reflux disease without esophagitis; J45.909 Unspecified asthma, uncomplicated
CPT/HCPCS: 36415; 80053; 81001; 81025; 83690; 85025; 96372; 99283; J1630; J7030

== ENCOUNTER 2017-03-05 08:08 | Inpatient (IN) | payer OTHER ==
[2017-03-05] MEDS ORDERED: NACL 0.9% 1000 ML 1,000 ML IV ONE (10:20)
[2017-03-05] MEDS ORDERED: BENADRYL IV ONE (10:22)
[2017-03-05] MEDS ORDERED: PEPCID IV ONE (10:45)
[2017-03-05] MEDS ORDERED: DILAUDID IV ONE (10:45)
--- NOTE | 2017-03-05 10:48 | Emergency Department Report ---
ED Abdominal Pain HPI - General Chief Complaint: Nausea/Vomiting/Diarrhea Stated Complaint: ABD PAIN/BACK PAIN/NAUSEA Time Seen by Provider: 03/05/17 10:18 Source: patient Mode of arrival: Wheelchair Limitations: No Limitations - History of Present Illness Initial Comments: Patient claims that she has recurrent pancreatitis. She states that she went to Dr. Gonzalez on and that her lipase was "22 points high". She complains of lower abdominal pain. She has been recently treated for enteritis with Flagyl I'm not sure if she had a positive C. difficile study. In fact I saw her in the emergency department with similar symptoms within the last 30 days whereupon she signed out AMA. 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 She is also thought to have gastroparesis. She tells me she is not in chronic pain management. However she has been here with pain complaints on multiple occasions. She denies being on daily opioids. Apparently she does have a positive urine test for cocaine today. She states that she has been vomiting for the past 2 days a yellow emesis. She has occasional diarrhea but not any bloody material. She complains of constant lower abdominal pain which is poorly localized and does not radiate. MD Complaint: abdominal pain -: Gradual, days(s) (but recurrent over the past several weeks at least) Location: LLQ, RLQ Radiation: none Migration to: no migration, suprapubic Severity: moderate Quality: aching Consistency: intermittent Improves With: nothing Worsens With: nothing Context: other (history of enteritis) Associated Symptoms: nausea, vomiting, diarrhea - Related Data Home Medications Medication Instructions Recorded Confirmed Last Taken No Known Home Medications [No 12/30/16 12/30/16 Unknown Reported Home Medications] Allergies Allergy/AdvReac Type Severity Reaction Status Date / Time codeine Allergy Itching Verified 12/24/16 08:17 fentanyl Allergy Hives Verified 12/24/16 08:17 ketorolac tromethamine Allergy Itching Verified 12/24/16 08:17 [From Toradol] metoclopramide HCl Allergy Hives Verified 12/24/16 08:17 [From Reglan] morphine Allergy Hives Verified 12/24/16 08:17 ondansetron HCl [From Zofran] Allergy Hives Verified 12/24/16 08:17 prochlorperazine edisylate Allergy Hives Verified 12/24/16 08:17 [From Compazine] prochlorperazine maleate Allergy Hives Verified 12/24/16 08:17 [From Compazine] ED Review of Systems ROS: Stated complaint: ABD PAIN/BACK PAIN/NAUSEA Other details as noted in HPI Constitutional: denies: chills, fever Eyes: denies: eye pain, eye discharge, vision change ENT: denies: ear pain, throat pain Respiratory: denies: cough, shortness of breath, wheezing Cardiovascular: denies: chest pain, palpitations Endocrine: no symptoms reported Gastrointestinal: as per HPI, abdominal pain, nausea, diarrhea Genitourinary: denies: urgency, dysuria, discharge Musculoskeletal: denies: back pain, joint swelling, arthralgia Skin: denies: rash, lesions Neurological: denies: headache, weakness, paresthesias Psychiatric: denies: anxiety, depression Hematological/Lymphatic: denies: easy bleeding, easy bruising ED Past Medical Hx - Past Medical History Previous Medical History?: Yes Hx Hypertension: No Hx CVA: No Hx Heart Attack/AMI: No Hx Congestive Heart Failure: No Hx Diabetes: No Hx Deep Vein Thrombosis: No Hx Pulmonary Embolism: No Hx GERD: Yes (Gastroparesis) Hx Liver Disease: No Hx Renal Disease: Yes (renal failure- now in remission) Hx Sickle Cell Disease: No Hx Arthritis: No Hx Headaches / Migraines: No Hx Seizures: No Hx Kidney Stones: Yes Hx Psychiatric Treatment: No Hx Asthma: Yes Hx COPD: No Hx Tuberculosis: No Hx Dementia: No Hx HIV: No Additional medical history: ovarian/lung ca, gastroparesis, IBS, chronic pancereatitis, anemia. (LYMPHOMA LUNG), pyelonephritis, herpes. PORT RIGHT CHEST - Surgical History Past Surgical History?: Yes Hx Coronary Stent: No Hx Open Heart Surgery: No Hx Pacemaker: No Hx Internal Defibrillator: No Hx Cholecystectomy: Yes Hx Appendectomy: No Hx Breast Surgery: No Additional Surgical History: fistula repair, lower bowel dissection, stents (in/ out), hysterectomy. Power port - Social History Smoking Status: Never Smoker Substance Use Type: None - Medications Home Medications: Home Medications Medication Instructions Recorded Confirmed Last Taken Type No Known Home Medications [No 12/30/16 12/30/16 Unknown History Reported Home Medications] ED Physical Exam - General Limitations: No Limitations General appearance: alert, in no apparent distress - Head Head exam: Present: atraumatic, normocephalic - Eye Eye exam: Present: normal appearance. Absent: scleral icterus - ENT ENT exam: Present: normal exam, mucous membranes moist - Neck Neck exam: Present: normal inspection - Respiratory Respiratory exam: Present: normal lung sounds bilaterally. Absent: respiratory distress - Cardiovascular Cardiovascular Exam: Present: regular rate, normal rhythm. Absent: systolic murmur, diastolic murmur, rubs, gallop - GI/Abdominal GI/Abdominal exam: Present: soft, tenderness (poorly localized lower abdominal tenderness without peritoneal signs), normal bowel sounds. Absent: distended, guarding, rebound, rigid - Extremities Exam Extremities exam: Present: normal inspection - Back Exam Back exam: Present: normal inspection - Neurological Exam Neurological exam: Present: alert, oriented X3, CN II-XII intact. Absent: motor sensory deficit - Psychiatric Psychiatric exam: Present: anxious, flat affect - Skin Skin exam: Present: warm, dry, intact, normal color. Absent: rash ED Course Vital Signs 03/05/17 03/05/17 03/05/17 08:11 10:07 10:15 Temperature 99.3 F Pulse Rate 86 Respiratory 18 Rate Blood Pressure 128/76 118/76 O2 Sat by Pulse 100 97 99 Oximetry 03/05/17 03/05/17 03/05/17 10:30 10:46 11:00 Temperature Pulse Rate Respiratory Rate Blood Pressure 119/79 141/67 135/84 O2 Sat by Pulse 100 100 100 Oximetry 03/05/17 11:15 Temperature Pulse Rate Respiratory Rate Blood Pressure 130/82 O2 Sat by Pulse Oximetry - Reevaluation(s) Reevaluation #1: Patient now requesting Ativan. She was given 0.5 of Ativan. She was referred to Dr. Joy of the hospitalist service. Her CT showed enteritis. Her urine was positive for cocaine. 03/05/17 13:06 ED Medical Decision Making - Lab Data Result diagrams: 03/05/17 10:46 03/05/17 10:46 Laboratory Results - last 24 hr 03/05/17 03/05/17 03/05/17 10:46 10:46 10:46 WBC 3.8 L RBC 3.86 Hgb 10.0 L Hct 31.3 MCV 81 MCH 26 L MCHC 32 RDW 15.7 H Plt Count 201 Lymph % (Auto) 35.1 H [place] % (Auto) 8.2 H Eos % (Auto) 1.0 Baso % (Auto) 0.7 Lymph # 1.3 [place] # 0.3 Eos # 0.0 Baso # 0.0 Seg Neutrophils % 55.0 Seg Neutrophils # 2.1 Sodium 142 Potassium 4.2 Chloride 105.8 Carbon Dioxide 26 Anion Gap 14 BUN 13 Creatinine 0.7 Estimated GFR > 60 BUN/Creatinine Ratio 19 Glucose 104 H Calcium 8.2 L Total Bilirubin < 0.20 Direct Bilirubin < 0.2 Indirect Bilirubin 0.0 AST 45 H ALT 11 Alkaline Phosphatase 59 Total Protein 6.2 L Albumin 3.9 Albumin/Globulin Ratio 1.7 Lipase 65 H Urine Color Urine Turbidity Urine pH Ur Specific [place] Urine Protein Urine Glucose (UA) Urine Ketones Urine Blood Urine Nitrite Urine Bilirubin Urine Urobilinogen Ur Leukocyte Esterase Urine WBC (Auto) Urine RBC (Auto) U Epithel Cells (Auto) Urine Mucus Urine Opiates Screen Urine Methadone Screen Ur Barbiturates Screen Ur Phencyclidine Scrn Ur Amphetamines Screen U Benzodiazepines Scrn Urine Cocaine Screen U Marijuana (THC) Screen Drugs of Abuse Note 03/05/17 03/05/17 11:09 11:09 WBC RBC Hgb Hct MCV MCH MCHC RDW Plt Count Lymph % (Auto) [place] % (Auto) Eos % (Auto) Baso % (Auto) Lymph # [place] # Eos # Baso # Seg Neutrophils % Seg Neutrophils # Sodium Potassium Chloride Carbon Dioxide Anion Gap BUN Creatinine Estimated GFR BUN/Creatinine Ratio Glucose Calcium Total Bilirubin Direct Bilirubin Indirect Bilirubin AST ALT Alkaline Phosphatase Total Protein Albumin Albumin/Globulin Ratio Lipase Urine Color Yellow Urine Turbidity Clear Urine pH 5.0 Ur Specific [place] 1.025 Urine Protein <15 mg/dl Urine Glucose (UA) Neg Urine Ketones Neg Urine Blood Sm Urine Nitrite Neg Urine Bilirubin Neg Urine Urobilinogen < 2.0 Ur Leukocyte Esterase Neg Urine WBC (Auto) 1.0 Urine RBC (Auto) 1.0 U Epithel Cells (Auto) 1.0 Urine Mucus Few Urine Opiates Screen Presumptive negative Urine Methadone Screen Presumptive negative Ur Barbiturates Screen Presumptive negative Ur Phencyclidine Scrn Presumptive negative Ur Amphetamines Screen Presumptive negative U Benzodiazepines Scrn Presumptive negative Urine Cocaine Screen Presumptive positive U Marijuana (THC) Screen Presumptive positive Drugs of Abuse Note Disclamer - Radiology Data Radiology results: report reviewed (CT consistent with enteritis and a) interpreted by me: CT was positive for enteritis less likely partial small bowel obstruction. 2.2 cm fluid in the left perirectal region may be loculated fluid or cyst. Critical care attestation.: If time is entered above; I have spent that time in minutes in the direct care of this critically ill patient, excluding procedure time. ED Disposition Clinical Impression: Lower abdominal pain, Enteritis, Abdominal fluid collection, Cocaine abuse Disposition: OP ADMIT IP TO THIS HOSP Is pt being admited?: Yes Does the pt Need Aspirin: No Condition: Stable Referrals: PRIMARY CARE, [Primary Care Provider] - 3-5 Days Time of Disposition: 13:09
[2017-03-05 10:56] LABS: Basophils % (Auto) 0.7 % (0.0-1.8); Hematocrit 31.3 % (30.3-42.9); Mean Corpuscular HGB Conc 32 % (30-34); Mean Corpuscular Volume 81 fl (79-97); Platelet Count 201 K/mm3 (140-440); Red Blood Count 3.86 M/mm3 (3.65-5.03); Red Cell Distribution Width 15.7 % (13.2-15.2); White Blood Count 3.8 K/mm3 (4.5-11.0)
[2017-03-05 10:58] LABS: Mean Corpuscular Hemoglobin 26 pg (28-32)
[2017-03-05] MEDS ORDERED: NACL ONE (10:58)
[2017-03-05 11:11] LABS: Anion Gap 14 mmol/L; BUN/Creatinine Ratio 19; Blood Urea Nitrogen 13 mg/dL (7-17); Calcium 8.2 mg/dL (8.4-10.2); Carbon Dioxide 26 mmol/L (22-30); Chloride 105.8 mmol/L (98-107); Glucose 104 mg/dL (65-100); Potassium 4.2 mmol/L (3.6-5.0); Sodium 142 mmol/L (137-145)
[2017-03-05 11:12] LABS: Urine Drugs of Abuse Note Disclamer
[2017-03-05 11:15] LABS: Alanine Aminotransferase 11 units/L (7-56); Albumin 3.9 g/dL (3.9-5); Albumin/Globulin Ratio 1.7 %; Alkaline Phosphatase 59 units/L (35-129); Bilirubin,Total < 0.20 mg/dL (0.1-1.2); Lipase 65 units/L (13-60); Total Protein 6.2 g/dL (6.3-8.2)
[2017-03-05 11:17] LABS: Bilirubin,Direct < 0.2 mg/dL (0-0.2)
[2017-03-05 11:22] LABS: Bilirubin,Urine NEG (Negative); Blood,Urine SM (Negative); Ketones,Urine NEG (Negative); Leukocyte Esterase,Urine NEG (Negative); Mucus,Urine FEW /HPF; Nitrite,Urine NEG (Negative); Protein,Urine <15 mg/dL mg/dL (Negative); Urobilinogen,Urine < 2.0 mg/dL (<2.0)
--- NOTE | 2017-03-05 12:10 | Cat Scan Report ---
CT scan of abdomen and pelvis with IV contrast: History: Lower abdominal pain. Findings: Normal lung bases. No pleural pericardial effusion. Normal liver spleen and pancreas. Patient status post cholecystectomy.. Normal adrenals. Cystic left kidney measures 1.7 cm well assisted the right kidney carin 0.7 cm. The. No free intraperitoneal fluid or air. No evidence of adenopathy. Note evidence of appendicitis or diverticulitis. Few scattered diverticuli in sigmoid. Moderate stool in colon. Multiple nondistended fluid filled loops of small bowel without wall thickening. 2.2 cm fluid collection left pararectal area may be fluid in the cul-de-sac or loculated fluid or a cyst. Impression: Cystic right and left kidney. Fluid-filled loops of small bowel may be nonspecific or suggestive of enteritis. Less likely early incomplete small bowel obstruction. 2.2 cm fluid in the left pararectal region may be loculated fluid or cyst.
[2017-03-05] MEDS ORDERED: ATIVAN IV ONE (12:52)
--- NOTE | 2017-03-05 13:03 | History and Physical Report ---
History of Present Illness Chief complaint: My stomach has been hurtinig me for along time. History of present illness: 41 YO Female with GERD, Asthma, Cocaine Dependence, Ovarian Cancer, IBS, Gastroparesis, HSV presents to ED for evaluation. Pt states that she has experienced abdominal pain for the past month with worsening symptoms over the past 1 day. Pain awoke her from sleep at 0130 hrs. Pain was 8/10, localized to Left upper abdomen, constant, aching with intermittent sharp component, and radiates to her suprapubic region. Pain is worse with palpation and movement. No alleviating factors, associated with multiple episodes of nausea, and loose stools. Pt denies fever, chills, CP, Palpitations, syncope, BRBPR, hematemesis, ingestion of food/water from new or different sources, or recent ill contacts. Pt seen and evaluated in ED and found to have evidence of colitis/ enteritis on CT Abdomen. Past History Past Medical History: cancer, GERD Past Surgical History: cholecystectomy, hysterectomy, Other (Right chest port) Social history: single, other (cocaine dependence). denies: smoking, alcohol abuse Family history: no significant family history (reviewed) Medications and Allergies Allergies Allergy/AdvReac Type Severity Reaction Status Date / Time codeine Allergy Itching Verified 12/24/16 08:17 fentanyl Allergy Hives Verified 12/24/16 08:17 ketorolac tromethamine Allergy Itching Verified 12/24/16 08:17 [From Toradol] metoclopramide HCl Allergy Hives Verified 12/24/16 08:17 [From Reglan] morphine Allergy Hives Verified 12/24/16 08:17 ondansetron HCl [From Zofran] Allergy Hives Verified 12/24/16 08:17 prochlorperazine edisylate Allergy Hives Verified 12/24/16 08:17 [From Compazine] prochlorperazine maleate Allergy Hives Verified 12/24/16 08:17 [From Compazine] Home Medications Medication Instructions Recorded Confirmed Last Taken Type No Known Home Medications [No 12/30/16 12/30/16 Unknown History Reported Home Medications] Active Meds: Active Medications Sodium Chloride (Nacl 0.9% 1000 Ml) 1,000 mls @ 250 mls/hr IV ONCE ONE Stop: 03/05/17 14:19 Last Admin: 03/05/17 11:15 Dose: 250 mls/hr Review of Systems Constitutional: no weight loss, no weight gain Ears, nose, mouth and throat: no ear pain, no ear discharge, no tinnitis, no decreased hearing, no nose pain, no nasal congestion Breasts: no change in shape, no swelling, no mass Cardiovascular: no chest pain, no orthopnea, no palpitations, no rapid/ irregular heart beat, no edema Respiratory: no cough, no cough with sputum, no excessive sputum, no hemoptysis , no shortness of breath, no dyspnea on exertion Gastrointestinal: abdominal pain, nausea, vomiting, no BRBPR, no melena, no hematochezia Genitourinary Female: no pelvic pain, no flank pain, no menorrhagia, no dysuria Rectal: no pain, no incontinence, no bleeding Musculoskeletal: no neck stiffness, no neck pain, no shooting arm pain, no arm numbness/tingling, no low back pain Integumentary: no rash, no pruritis, no redness, no sores, no wounds, no jaundice Neurological: no paralysis, no weakness, no parathesias, no numbness, no tingling, no seizures Psychiatric: no memory loss, no change in sleep habits, no sleep disturbances, no insomnia, no hypersomnia, no change in appetite, no change in libido Endocrine: no heat intolerance, no polyphagia, no excessive thirst, no polydipsia, no polyuria, no nocturia Hematologic/Lymphatic: no easy bruising, no easy bleeding Allergic/Immunologic: no urticaria, no allergic rhinitis, no wheezing Exam - Constitutional Vitals: Temp Pulse Resp BP Pulse Ox 99.3 F 86 18 130/82 100 03/05/17 08:11 03/05/17 08:11 03/05/17 08:11 03/05/17 11:15 03/05/17 11:00 General appearance: Present: mild distress - EENT Eyes: Present: PERRL ENT: hearing intact, clear oral mucosa - Neck Neck: Present: supple, normal ROM - Respiratory Respiratory effort: normal Respiratory: bilateral: CTA - Cardiovascular Heart Sounds: Present: S1 & S2. Absent: rub, click - Extremities Extremities: pulses symmetrical, No edema Peripheral Pulses: within normal limits - Abdominal General gastrointestinal: Present: soft, tender, non-distended, normal bowel sounds. Absent: hepatomegaly, splenomegaly, mass, hernia Localized gastrointestinal: tender: diffuse, guarding: diffuse Female genitourinary: Present: normal - Integumentary Integumentary: Present: clear, warm, dry - Musculoskeletal Musculoskeletal: gait normal, strength equal bilaterally - Psychiatric Psychiatric: appropriate mood/affect, intact judgment & insight - Neurologic Neurologic: CNII-XII intact, moves all extremities Results - Labs CBC & Chem 7: 03/05/17 10:46 03/05/17 10:46 Labs: Abnormal lab results 03/05/17 03/05/17 03/05/17 Range/Units 10:46 10:46 10:46 WBC 3.8 L (4.5-11.0) K/mm3 Hgb 10.0 L (10.1-14.3) gm/dl MCH 26 L (28-32) pg RDW 15.7 H (13.2-15.2) % Lymph % (Auto) 35.1 H (13.4-35.0) % [place] % (Auto) 8.2 H (0.0-7.3) % Glucose 104 H (65-100) mg/dL Calcium 8.2 L (8.4-10.2) mg/dL AST 45 H (5-40) units/L Total Protein 6.2 L (6.3-8.2) g/dL Lipase 65 H (13-60) units/L Assessment and Plan - Patient Problems (1) Colitis Current Visit: Yes Status: Acute Plan to address problem: IV abx, GI consulted, IVF resuscitation, pain control, serial abdominal exam, ambulation QID and PRN, PPI therapy, repeat x ray abdomen in AM if worsening symptoms. (2) Cocaine dependence Current Visit: Yes Status: Acute Qualifiers: Substance use status: S Complication of substance-induced condition: C Plan to address problem: Pt counseled, (3) Lymphoma Current Visit: Yes Status: Acute Qualifiers: Lymphoma type: unspecified type Hodgkin lymphoma type: H Non-Hodgkin lymphoma type: N Follicular lymphoma type: F Follicular lymphoma grade: F Non-follicular lymphoma type: N Mature NK/T-cell lymphoma type: M B-cell lymphoma type: B Other specified types of NK/T-cell lymphoma: O Lymphoma site: L Plan to address problem: Stable, currently in remission, Outpatient oncology F/U (4) Gastroparesis Current Visit: Yes Status: Acute Plan to address problem: IVF resuscitation, NPO for now, advance diet as tolerated, may start clears in AM as tolerated. (5) DVT prophylaxis Current Visit: No Status: Acute
[2017-03-05 13:10] LABS: Creatine Kinase MB 3.1 ng/mL (0.0-4.0)
[2017-03-05] MEDS ORDERED: MILK OF MAGNESIA PO PRN (14:28)
[2017-03-05] MEDS ORDERED: ZOFRAN IV PRN (14:28)
[2017-03-05] MEDS ORDERED: TYLENOL PO PRN (14:28)
[2017-03-05] MEDS ORDERED: PROVENTIL IH PRN (14:28)
[2017-03-05] MEDS ORDERED: DULCOLAX PR PRN (14:28)
[2017-03-05] MEDS ORDERED: DILAUDID ONE (17:18)
[2017-03-05] MEDS: DILAUDID IV PRN ×2 (17:20→23:22)
[2017-03-05] MEDS: FLAGYL 500 MG/100 ML 500 MG/100 ML BAG IV SCH (18:39)
[2017-03-05] MEDS: NACL 0.45% 1000 ML 1,000 ML IV SCH (18:40)
[2017-03-05] MEDS: BENADRYL IV PRN (23:22)
[2017-03-06] MEDS: FLAGYL 500 MG/100 ML 500 MG/100 ML BAG IV SCH (02:23)
[2017-03-06] MEDS: BENADRYL IV PRN ×3 (05:10→20:59)
[2017-03-06] MEDS: DILAUDID IV PRN ×5 (05:11→21:00)
--- NOTE | 2017-03-06 09:34 | Progress Note ---
Assessment and Plan Assessment and plan: Enteritis.continue IV antibiotics. Await GI consultation. Follow-up stool studies. Cocaine dependence. Patient has been counseled. Lymphoma. Outpatient oncology follow-up. DVT prophylaxis. Start Lovenox. History Interval history: Pt c/o moderate LUQ abd pain. N/V improved Hospitalist Physical - Constitutional Vitals: Temp Pulse Resp BP Pulse Ox 98.9 F 74 20 134/91 99 03/06/17 08:14 03/06/17 08:14 03/06/17 08:14 03/06/17 08:14 03/06/17 09:22 General appearance: Present: no acute distress - EENT Eyes: Present: PERRL, EOM intact ENT: hearing intact, clear oral mucosa, dentition normal - Neck Neck: Present: supple, normal ROM - Respiratory Respiratory effort: normal Respiratory: bilateral: CTA - Cardiovascular Rhythm: regular Heart Sounds: Present: S1 & S2. Absent: gallop, rub - Extremities Extremities: no ischemia, No edema, Full ROM - Abdominal General gastrointestinal: soft, non-tender, tender, normal bowel sounds, other ( no rebound or guarding) Localized gastrointestinal: tender: LUQ (moderate) - Integumentary Integumentary: Present: clear, warm, dry - Neurologic Neurologic: CNII-XII intact, moves all extremities Results - Labs CBC & Chem 7: 03/05/17 10:46 03/05/17 10:46 Labs: Laboratory Last Values WBC 3.8 K/mm3 (4.5-11.0) L 03/05/17 10:46 RBC 3.86 M/mm3 (3.65-5.03) 03/05/17 10:46 Hgb 10.0 gm/dl (10.1-14.3) L 03/05/17 10:46 Hct 31.3 % (30.3-42.9) 03/05/17 10:46 MCV 81 fl (79-97) 03/05/17 10:46 MCH 26 pg (28-32) L 03/05/17 10:46 MCHC 32 % (30-34) 03/05/17 10:46 RDW 15.7 % (13.2-15.2) H 03/05/17 10:46 Plt Count 201 K/mm3 (140-440) 03/05/17 10:46 Lymph % (Auto) 35.1 % (13.4-35.0) H 03/05/17 10:46 [place] % (Auto) 8.2 % (0.0-7.3) H 03/05/17 10:46 Eos % (Auto) 1.0 % (0.0-4.3) 03/05/17 10:46 Baso % (Auto) 0.7 % (0.0-1.8) 03/05/17 10:46 Lymph # 1.3 K/mm3 (1.2-5.4) 03/05/17 10:46 [place] # 0.3 K/mm3 (0.0-0.8) 03/05/17 10:46 Eos # 0.0 K/mm3 (0.0-0.4) 03/05/17 10:46 Baso # 0.0 K/mm3 (0.0-0.1) 03/05/17 10:46 Seg Neutrophils % 55.0 % (40.0-70.0) 03/05/17 10:46 Seg Neutrophils # 2.1 K/mm3 (1.8-7.7) 03/05/17 10:46 Sodium 142 mmol/L (137-145) 03/05/17 10:46 Potassium 4.2 mmol/L (3.6-5.0) 03/05/17 10:46 Chloride 105.8 mmol/L (98-107) 03/05/17 10:46 Carbon Dioxide 26 mmol/L (22-30) 03/05/17 10:46 Anion Gap 14 mmol/L 03/05/17 10:46 BUN 13 mg/dL (7-17) 03/05/17 10:46 Creatinine 0.7 mg/dL (0.7-1.2) 03/05/17 10:46 Estimated GFR > 60 ml/min 03/05/17 10:46 BUN/Creatinine Ratio 19 % 03/05/17 10:46 Glucose 104 mg/dL (65-100) H 03/05/17 10:46 Calcium 8.2 mg/dL (8.4-10.2) L 03/05/17 10:46 Total Bilirubin < 0.20 mg/dL (0.1-1.2) 03/05/17 10:46 Direct Bilirubin < 0.2 mg/dL (0-0.2) 03/05/17 10:46 Indirect Bilirubin 0.0 mg/dL 03/05/17 10:46 AST 45 units/L (5-40) H 03/05/17 10:46 ALT 11 units/L (7-56) 03/05/17 10:46 Alkaline Phosphatase 59 units/L (35-129) 03/05/17 10:46 Total Creatine Kinase 217 units/L (30-135) H 03/05/17 10:46 CK-MB (CK-2) 3.1 ng/mL (0.0-4.0) 03/05/17 10:46 CK-MB (CK-2) Rel Index 1.4 (0-4) 03/05/17 10:46 Total Protein 6.2 g/dL (6.3-8.2) L 03/05/17 10:46 Albumin 3.9 g/dL (3.9-5) 03/05/17 10:46 Albumin/Globulin Ratio 1.7 % 03/05/17 10:46 Lipase 65 units/L (13-60) H 03/05/17 10:46 Urine Color Yellow (Yellow) 03/05/17 11:09 Urine Turbidity Clear (Clear) 03/05/17 11:09 Urine pH 5.0 (5.0-7.0) 03/05/17 11:09 Ur Specific [place] 1.025 (1.003-1.030) 03/05/17 11:09 Urine Protein <15 mg/dl mg/dL (Negative) 03/05/17 11:09 Urine Glucose (UA) Neg mg/dL (Negative) 03/05/17 11:09 Urine Ketones Neg mg/dL (Negative) 03/05/17 11:09 Urine Blood Sm (Negative) 03/05/17 11:09 Urine Nitrite Neg (Negative) 03/05/17 11:09 Urine Bilirubin Neg (Negative) 03/05/17 11:09 Urine Urobilinogen < 2.0 mg/dL (<2.0) 03/05/17 11:09 Ur Leukocyte Esterase Neg (Negative) 03/05/17 11:09 Urine WBC (Auto) 1.0 /HPF (0.0-6.0) 03/05/17 11:09 Urine RBC (Auto) 1.0 /HPF (0.0-6.0) 03/05/17 11:09 U Epithel Cells (Auto) 1.0 /HPF (0-13.0) 03/05/17 11:09 Urine Mucus Few /HPF 03/05/17 11:09 Urine Opiates Screen Presumptive negative 03/05/17 11:09 Urine Methadone Screen Presumptive negative 03/05/17 11:09 Ur Barbiturates Screen Presumptive negative 03/05/17 11:09 Ur Phencyclidine Scrn Presumptive negative 03/05/17 11:09 Ur Amphetamines Screen Presumptive negative 03/05/17 11:09 U Benzodiazepines Scrn Presumptive negative 03/05/17 11:09 Urine Cocaine Screen Presumptive positive 03/05/17 11:09 U Marijuana (THC) Screen Presumptive positive 03/05/17 11:09 Drugs of Abuse Note Disclamer 03/05/17 11:09
--- NOTE | 2017-03-06 09:45 | Gastroenterology Consultation ---
History of Present Illness - Reason for Consult Consult date: 03/06/17 colitis/gastroparesis Requesting physician: TED HUNTER - History of Present Illness Patient is a 41 y/o female with PMH of Asthma, cocaine dependency, ovarian cancer, IBS, gastroparesis, chronic pancreatitis, HSV, and chronic pain syndrome who presented to ED with c/o abd pain, N/V, and loose stool. She is well known to our service with multiple ED visits in the past couple of years for similar symptoms with multiple CT scans with most recent being only [address] scan this admission revealed enteritis. Denies fever, CP, hematemesis, melena, constipation, or hematochezia. No recent ingestion of food/ water from new or different source or ill contacts. This am pt still c/o generalized abd pain worse with palpation and nausea but no vomiting. Past History Past Medical History: cancer (ovarian), GERD, other (asthma, IBS, gastroparesis , chronic pancreatitis, chronic pain syndrome) Past Surgical History: cholecystectomy, hysterectomy, Other (Right chest port) Social history: single, other (cocaine dependence). denies: smoking, alcohol abuse Family history: no significant family history (reviewed) Medications and Allergies Allergies Allergy/AdvReac Type Severity Reaction Status Date / Time codeine Allergy Itching Verified 12/24/16 08:17 fentanyl Allergy Hives Verified 12/24/16 08:17 ketorolac tromethamine Allergy Itching Verified 12/24/16 08:17 [From Toradol] metoclopramide HCl Allergy Hives Verified 12/24/16 08:17 [From Reglan] morphine Allergy Hives Verified 12/24/16 08:17 ondansetron HCl [From Zofran] Allergy Hives Verified 12/24/16 08:17 prochlorperazine edisylate Allergy Hives Verified 12/24/16 08:17 [From Compazine] prochlorperazine maleate Allergy Hives Verified 12/24/16 08:17 [From Compazine] Home Medications Medication Instructions Recorded Confirmed Last Taken Type No Known Home Medications [No 12/30/16 12/30/16 Unknown History Reported Home Medications] Active Meds: Active Medications Acetaminophen (Tylenol) 650 mg PO Q4H PRN PRN Reason: Pain MILD(1-3)/Fever >100.5/VIVEROS Albuterol (Proventil) 2.5 mg IH Q4HRT PRN PRN Reason: Shortness Of Breath Bisacodyl (Dulcolax) 10 mg PA QDAY PRN PRN Reason: Constipation unrelieved by MOM Diphenhydramine HCl (Benadryl) 25 mg IV Q6H PRN PRN Reason: Itching/discomfort Last Admin: 03/06/17 05:10 Dose: 25 mg Enoxaparin Sodium (Lovenox) 40 mg SUB-Q QDAY@2200 VINNIE Hydromorphone HCl (Dilaudid) 0.5 mg IV Q4H PRN PRN Reason: Pain , Severe (7-10) Sodium Chloride (Nacl 0.45% 1000 Ml) 1,000 mls @ 100 mls/hr IV DIRECT VINNIE Last Admin: 03/05/17 18:40 Dose: 100 mls/hr Metronidazole (Flagyl 500 Mg/100 Ml) 500 mg in 100 mls @ 100 mls/hr IV Q8H VINNIE Last Admin: 03/06/17 02:23 Dose: 100 mls/hr Magnesium Hydroxide (Milk Of Magnesia) 30 ml PO Q4H PRN PRN Reason: Constipation Ondansetron HCl (Zofran) 4 mg IV Q8H PRN PRN Reason: N/V unrelieved by Reglan Review of Systems - Review of Systems All systems: negative Gastrointestinal: abdominal pain, nausea, other (loose stool) Exam - Constitutional Vital Signs: Temp Pulse Resp BP Pulse Ox 98.9 F 74 20 134/91 99 03/06/17 08:14 03/06/17 08:14 03/06/17 08:14 03/06/17 08:14 03/06/17 09:22 General appearance: no acute distress - EENT Eyes: PERRL, EOM intact ENT: hearing intact - Respiratory Respiratory: bilateral: CTA - Cardiovascular Rhythm: regular Heart Sounds: Present: S1 & S2 Extremities: No edema - Gastrointestinal General gastrointestinal: Present: soft, tender (generalized ), non-distended, normal bowel sounds - Integumentary Integumentary: Present: warm, dry - Neurologic Neurological: alert and oriented x3 - Labs CBC & Chem 7: 03/05/17 10:46 03/05/17 10:46 Assessment and Plan 1.enteritis -afebrile -WBC-3.8 -abd CT showed enteritis -pt with chronic c/o abd pain, N/V, and loose stool with no change in condition since last admission 2months ago- etiology unclear- most likely functional in nature -will d/c Flagyl -continue supportive care -recommend limiting narcotics as much as possible for this may exacerbate symptoms -no recommendations for an endoscopic evaluation at this time -advance diet as tolerated -pt okay to be d/c per GI standpoint with f/u clinic appt in 3-4 weeks -will sign off
[2017-03-06] MEDS: NACL 0.45% 1000 ML 1,000 ML IV SCH ×2 (13:29→22:09)
[2017-03-06] MEDS: LOVENOX SUB-Q SCH (22:10)
[2017-03-07] MEDS: LOVENOX SUB-Q SCH (00:28)
[2017-03-07] MEDS: DILAUDID IV PRN ×3 (03:30→11:22)
[2017-03-07] MEDS: BENADRYL IV PRN ×2 (03:42→11:23)
[2017-03-07 07:36] VITALS: BP 125/83
--- NOTE | 2017-03-07 08:59 | Discharge Summary ---
Providers - Providers Date of Admission: 03/05/17 14:28 Date of discharge: 03/07/17 Attending physician: ANNETTA REEEC 03/05/17 17:10 Consult to Physician [CONS] Routine Consulting Provider: DEBO CONWAY Reason For Exam: colitis/gastroparesis Place consult to:: DR. CONWAY Notified:: Gina Phone number called:: [phone] Was contact made?: Yes If yes, spoke with:: Time called:: 17:39 Comment:: NICOLASA NOTIFIED Primary care physician: ORDER ENTRY REPRESENTATIVE Hospitalization Reason for admission: abd pain Condition: Stable Hospital course: Patient is a 41 y/o female with PMH of Asthma, cocaine dependency, ovarian cancer, IBS, gastroparesis, chronic pancreatitis, HSV, and chronic pain syndrome who presented to ED with c/o abd pain, N/V, and loose stool. She is well known to the hospital with multiple ED visits in the past couple of years for similar symptoms with multiple CT scans with most recent being only [address] scan this admission revealed enteritis. Denies fever, CP, hematemesis, melena, constipation, or hematochezia. No recent ingestion of food/ water from new or different source or ill contacts. The patient was evaluated by GI in consultation. The patient was counseled to stop substance abuse. GI recommended to d/c home and no abx. Dedicated discharge time 32 minutes Disposition: DC-01 TO HOME OR SELFCARE Time spent for discharge: 32 - Discharge Diagnoses (1) Cocaine abuse Status: Acute (2) Cocaine dependence Status: Acute Qualifiers: Substance use status: S Complication of substance-induced condition: C (3) Enteritis Status: Acute (4) Lower abdominal pain Status: Acute (5) GERD (gastroesophageal reflux disease) Status: Acute Qualifiers: Esophagitis presence: E Core Measure Documentation - Palliative Care Palliative Care/ Comfort Measures: Not Applicable - Core Measures Any of the following diagnoses?: none Exam - Constitutional Vitals: Temp Pulse Resp BP Pulse Ox 98.8 F 77 18 125/83 99 03/07/17 07:33 03/07/17 07:33 03/07/17 07:33 03/07/17 07:33 03/07/17 07:33 General appearance: Present: no acute distress, well-nourished - EENT Eyes: Present: PERRL ENT: hearing intact, clear oral mucosa - Neck Neck: Present: supple, normal ROM - Respiratory Respiratory effort: normal Respiratory: bilateral: CTA - Cardiovascular Heart Sounds: Present: S1 & S2. Absent: rub, click - Extremities Extremities: pulses symmetrical, No edema Peripheral Pulses: within normal limits - Abdominal General gastrointestinal: Present: soft, non-tender, non-distended, normal bowel sounds Female genitourinary: Present: normal - Integumentary Integumentary: Present: clear, warm, dry - Musculoskeletal Musculoskeletal: gait normal, strength equal bilaterally - Psychiatric Psychiatric: appropriate mood/affect, intact judgment & insight - Neurologic Neurologic: CNII-XII intact, moves all extremities Plan Activity: no restrictions Weight Bearing Status: Full Weight Bearing Diet: regular Follow up with: PRIMARY CAREMD [Primary Care Provider] - 3-5 Days ANN MARIE CUELLO MD [Staff Physician] - 7 Days Prescriptions: Pantoprazole [Protonix TAB] 40 mg PO BID #60 tablet Promethazine [Phenergan TAB] 25 mg PO TID PRN #60 tablet PRN Reason: Nausea
[2017-03-07] MEDS ORDERED: FLUSH HEPARIN IV ONE (10:11)
[2017-03-07] MEDS ORDERED: TRIPLE ANTIBIOTIC TP ONE (10:11)
== END 2017-03-07 13:30 | disposition home or self-care (01) | DRG 392 ==
LOC: ED 08:08 → 3A 14:28
PROVIDERS: ADMIT Internal Medicine; ATTEND Hospitalist
DX: K52.9 Noninfective gastroenteritis and colitis, unspecified (principal); F14.20 Cocaine dependence, uncomplicated; C85.90 Non-Hodgkin lymphoma, unspecified, unspecified site; K86.1 Other chronic pancreatitis; K31.84 Gastroparesis; Z88.6 Allergy status to analgesic agent; Z88.8 Allergy status to other drugs, medicaments and biological substances; K21.9 Gastro-esophageal reflux disease without esophagitis; J45.909 Unspecified asthma, uncomplicated; Z90.710 Acquired absence of both cervix and uterus; Z90.49 Acquired absence of other specified parts of digestive tract; G89.4 Chronic pain syndrome
CPT/HCPCS: 36415; 74177; 80048; 80074; 80307; 81001; 82550; 82553; 83690; 85025; 96374; 96375; A6250; J1170; J1200; J1642; J1650; J2060; J7030; Q9967

== ENCOUNTER 2017-04-20 09:43 | Emergency (ER) | payer OTHER ==
[2017-04-20 10:47] LABS: Bacteria,Urine 1+ /HPF (Negative); Bilirubin,Urine NEG (Negative); Blood,Urine LG (Negative); Ketones,Urine NEG (Negative); Leukocyte Esterase,Urine NEG (Negative); Mucus,Urine FEW /HPF; Nitrite,Urine NEG (Negative); Protein,Urine <15 mg/dL mg/dL (Negative); Urobilinogen,Urine < 2.0 mg/dL (<2.0)
[2017-04-20] MEDS ORDERED: NACL 0.9% 1000 ML 1,000 ML IV ONE (11:33)
[2017-04-20] MEDS ORDERED: ROCEPHIN/NS 1 GM/50 ML 1 GM/50 ML BAG IV ONE (11:33)
[2017-04-20] MEDS ORDERED: PHENERGAN PR ONE (11:33)
[2017-04-20] MEDS ORDERED: cefTRIAXone 1 GM in NACL 0.9% 20 ML IV ONE (11:33)
[2017-04-20 11:39] LABS: Basophils % (Auto) 0.9 % (0.0-1.8); Eosinophils % (Auto) 0.9 % (0.0-4.3); Hematocrit 37.1 % (30.3-42.9); Hemoglobin 11.9 gm/dl (10.1-14.3); Mean Corpuscular HGB Conc 32 % (30-34); Mean Corpuscular Hemoglobin 26 pg (28-32); Mean Corpuscular Volume 81 fl (79-97); Platelet Count 216 K/mm3 (140-440); Red Blood Count 4.57 M/mm3 (3.65-5.03); Red Cell Distribution Width 17.3 % (13.2-15.2); White Blood Count 4.4 K/mm3 (4.5-11.0)
[2017-04-20 11:54] LABS: Urine Drugs of Abuse Note Disclamer
[2017-04-20 11:55] LABS: Anion Gap 17 mmol/L; BUN/Creatinine Ratio 10; Blood Urea Nitrogen 8 mg/dL (7-17); Calcium 8.7 mg/dL (8.4-10.2); Carbon Dioxide 27 mmol/L (22-30); Chloride 102.2 mmol/L (98-107); Glucose 85 mg/dL (65-100); Potassium 3.2 mmol/L (3.6-5.0); Sodium 143 mmol/L (137-145)
[2017-04-20 11:59] LABS: Alanine Aminotransferase 17 units/L (7-56); Albumin 4.4 g/dL (3.9-5); Albumin/Globulin Ratio 1.8 %; Alkaline Phosphatase 60 units/L (35-129); Total Protein 6.9 g/dL (6.3-8.2)
[2017-04-20 12:06] LABS: Bilirubin,Direct < 0.2 mg/dL (0-0.2); Bilirubin,Indirect 0.2 mg/dL
--- NOTE | 2017-04-20 12:30 | XRay Report ---
ABDOMEN, 2 views: History: Abdominal pain. There is no evidence of free air beneath the diaphragms. The gas pattern within the abdomen is unremarkable. There is no evidence of bowel dilatation, significant air-fluid levels, or pathologic calcifications. Cholecystectomy changes are noted. Organ shadows are unremarkable. IMPRESSION: Unremarkable abdomen.
[2017-04-20] MEDS ORDERED: BENADRYL IV ONE (12:46)
[2017-04-20] MEDS ORDERED: PERCOCET 5/325 PO ONE (12:46)
--- NOTE | 2017-04-20 13:13 | Emergency Department Report ---
HPI - General Chief Complaint: Nausea/Vomiting/Diarrhea Time Seen by Provider: 04/20/17 10:48 - HPI HPI: This is a 41 year-old female presents to the emergency department by EMS from home with complaint of some upper abdominal pain, nausea and vomiting. The patient has a significant GI history that includes gastroparesis, chronic pancreatitis, IBS. She also has a history of asthma, hypertension, previous ovarian and lung cancer. She has a right chest port. The patient was recently at [facility] for similar symptoms in February. She follows with Dr. Conway for gastroenterology and Dr. Augusto Lloyd for primary care. She has not taken anything for her symptoms prior to presentation as she does not have any medications at home for this. She says that she has been unable to keep down any food or liquid. No recent travel or sick contacts at home. ED Past Medical Hx - Past Medical History Previous Medical History?: Yes Hx Hypertension: Yes Hx CVA: No Hx Heart Attack/AMI: No Hx Congestive Heart Failure: No Hx Diabetes: No Hx Deep Vein Thrombosis: No Hx Pulmonary Embolism: No Hx GERD: Yes (Gastroparesis) Hx Liver Disease: No Hx Renal Disease: Yes (renal failure- now in remission) Hx Sickle Cell Disease: No Hx Arthritis: No Hx Headaches / Migraines: No Hx Seizures: No Hx Kidney Stones: Yes Hx Psychiatric Treatment: No Hx Asthma: Yes Hx COPD: No Hx Tuberculosis: No Hx Dementia: No Hx HIV: No Additional medical history: ovarian/lung ca, gastroparesis, IBS, chronic pancereatitis, anemia. (LYMPHOMA LUNG), pyelonephritis, herpes. PORT RIGHT CHEST - Surgical History Past Surgical History?: Yes Hx Coronary Stent: No Hx Open Heart Surgery: No Hx Pacemaker: No Hx Internal Defibrillator: No Hx Cholecystectomy: Yes Hx Appendectomy: No Hx Breast Surgery: No Additional Surgical History: fistula repair, lower bowel dissection, stents (in/ out), hysterectomy. Power port - Social History Smoking Status: Current Some Day Smoker Substance Use Type: Prescribed - Medications Home Medications: Home Medications Medication Instructions Recorded Confirmed Last Taken Type Estrogens, Conjugated [Premarin] 1.25 mg PO BID 03/06/17 03/06/17 Unknown History Pantoprazole [Protonix TAB] 40 mg PO BID #60 tablet 03/07/17 Unknown Rx Nitrofurantoin Monohyd/M-Cryst 100 mg PO BID #14 capsule 04/20/17 Unknown Rx [Macrobid 100 mg Capsule] Promethazine [Phenergan] 25 mg [place] Q8H PRN #14 supp.rect 04/20/17 Unknown Rx oxyCODONE /ACETAMINOPHEN [Percocet 1 tab PO Q6HR PRN #12 tablet 04/20/17 Unknown Rx 5/325] ED Review of Systems ROS: Stated complaint: NAUSEA/VOMITING Other details as noted in HPI Comment: All other systems reviewed and negative Constitutional: denies: chills, fever Eyes: denies: eye pain, eye discharge, vision change ENT: denies: ear pain, throat pain Respiratory: denies: cough, shortness of breath, wheezing Cardiovascular: denies: chest pain, palpitations Gastrointestinal: abdominal pain, nausea, vomiting Genitourinary: denies: urgency, dysuria, discharge Musculoskeletal: denies: back pain, joint swelling, arthralgia Skin: denies: rash, lesions Neurological: denies: headache, weakness, paresthesias Physical Exam - Physical Exam Vital Signs: Vital Signs 04/20/17 04/20/17 04/20/17 09:46 11:32 11:50 Temperature 99.3 F Pulse Rate 91 H 97 H Respiratory 18 18 Rate Blood Pressure 131/81 Blood Pressure 134/67 [Right] O2 Sat by Pulse 99 100 99 Oximetry 04/20/17 04/20/17 04/20/17 12:01 12:31 13:01 Temperature Pulse Rate Respiratory Rate Blood Pressure 137/74 129/75 167/102 Blood Pressure [Right] O2 Sat by Pulse 100 100 100 Oximetry Physical Exam: GENERAL: The patient is well-developed well-nourished. HENT: Normocephalic. Atraumatic. Patient has moist mucous membranes. EYES: Extraocular motions are intact. Pupils equal reactive to light bilaterally. NECK: Supple. Trachea is midline. CHEST/LUNGS: Clear to auscultation. There is no respiratory distress noted. Chest port in place. HEART/CARDIOVASCULAR: Regular. There is no tachycardia. There is no murmur. ABDOMEN: Abdomen is soft. There is some tenderness to palpation to the upper quadrants of the abdomen. Patient has normal bowel sounds. There is no abdominal distention. SKIN: Skin is warm and dry. NEURO: The patient is awake, alert, and oriented. The patient is cooperative. The patient has no focal neurologic deficits. The patient has normal speech. MUSCULOSKELETAL: There is no tenderness or deformity. There is no limitation range of motion. There is no evidence of acute injury. ED Course Vital Signs 04/20/17 04/20/17 04/20/17 09:46 11:32 11:50 Temperature 99.3 F Pulse Rate 91 H 97 H Respiratory 18 18 Rate Blood Pressure 131/81 Blood Pressure 134/67 [Right] O2 Sat by Pulse 99 100 99 Oximetry 04/20/17 04/20/17 04/20/17 12:01 12:31 13:01 Temperature Pulse Rate Respiratory Rate Blood Pressure 137/74 129/75 167/102 Blood Pressure [Right] O2 Sat by Pulse 100 100 100 Oximetry ED Medical Decision Making - Lab Data Result diagrams: 04/20/17 11:23 04/20/17 11:23 - Radiology Data Radiology results: image reviewed interpreted by me: Abdominal x-ray shows nonspecific nonobstructive bowel gas. - Medical Decision Making The patient presents with nausea, vomiting and upper abdominal pain. She has a history of chronic pancreatitis, gastroparesis and chronic pain syndromes. She also has a history of cocaine abuse but urine drug screen today was negative. I checked the [facility] prescription monitoring and it has been multiple months since she appears to have filled a home opiate prescription. The labs today have been unremarkable and do not show any etiology of her symptoms. Abdominal x-ray does not show any acute process. The patient has had probably close to 15 -20 CT scans of the abdomen and pelvis over the past 2 years and therefore with normal vitals and normal labs, I did not want to repeat a CT scan. The patient was given a single pain pill and some Phenergan for nausea. I ordered a upper quadrant ultrasound to evaluate her pancreas, gallbladder and liver. However the patient says that she is feeling better, feels like it is a chronic issue, feels that she does not need to be admitted, and does not want the ultrasound done. The patient was encouraged to stay for the ultrasound but she does not want to and says that she will follow up with her adult family home program manager. She was given a very small amount of pain and nausea medication for home. She was encouraged to return to the ER with any worsening or symptoms or any acute distress. Critical Care Time: No Critical care attestation.: If time is entered above; I have spent that time in minutes in the direct care of this critically ill patient, excluding procedure time. ED Disposition Clinical Impression: Gastroparesis Vomiting Qualifiers: Vomiting type: unspecified Vomiting Intractability: non-intractable Nausea presence: with nausea Qualified Code(s): R11.2 - Nausea with vomiting, unspecified Abdominal pain Qualifiers: Abdominal location: upper abdomen, unspecified Qualified Code(s): R10.10 - Upper abdominal pain, unspecified Disposition: TO HOME OR SELFCARE Is pt being admited?: No Condition: Stable Instructions: Acute Nausea and Vomiting (ED), Abdominal Pain (ED) Additional Instructions: Please follow-up with your primary care physician and/or adult family home program manager in the next few days. Return to the emergency Department with any worsening of her symptoms or any acute distress. You have been prescribed a medication that is sedating and therefore should not be taken prior to driving, working, and responsible for children and in no way should be mixed with alcohol of any quantity. Prescriptions: Nitrofurantoin Monohyd/M-Cryst [Macrobid 100 mg Capsule] 100 mg PO BID #14 capsule oxyCODONE /ACETAMINOPHEN [Percocet 5/325] 1 tab PO Q6HR PRN #12 tablet PRN Reason: Pain Promethazine [Phenergan] 25 mg [place] Q8H PRN #14 supp.rect PRN Reason: Nausea Referrals: DEBO CONWAY MD [Staff Physician] - 3-5 Days AUGUSTO LLOYD MD [Staff Physician] - 3-5 Days Time of Disposition: 14:17
[2017-04-20] MEDS ORDERED: K-DUR PO ONE (13:30)
[2017-04-20 13:36] VITALS: BP 159/90
[2017-04-20] MEDS ORDERED: KCL 10MEQ/100ML 10 MEQ/100 ML BAG IV SCH (14:00)
[2017-04-20] MEDS ORDERED: FLUSH HEPARIN IV ONE (14:29)
== END 2017-04-20 14:39 | disposition home or self-care (01) ==
LOC: ED 09:43
DX: K31.84 Gastroparesis (principal); R10.10 Upper abdominal pain, unspecified; R11.2 Nausea with vomiting, unspecified; I10 Essential (primary) hypertension; K21.9 Gastro-esophageal reflux disease without esophagitis; F17.200 Nicotine dependence, unspecified, uncomplicated
CPT/HCPCS: 36415; 74020; 80048; 80074; 80307; 81001; 83690; 85025; 96365; 96375; 99284; J0696; J1200; J1642; J7030

== ENCOUNTER 2017-05-18 08:36 | Emergency (ER) | payer OTHER ==
[2017-05-18 09:42] VITALS: BP 131/71
[2017-05-18 10:25] LABS: Bilirubin,Urine NEG (Negative); Blood,Urine LG (Negative); Color,Urine Yellow (Yellow); Mucus,Urine FEW /HPF; Nitrite,Urine NEG (Negative); Protein,Urine <15 mg/dL mg/dL (Negative); Urobilinogen,Urine < 2.0 mg/dL (<2.0)
== END 2017-05-18 19:27 | disposition left against medical advice (07) ==
LOC: ED 08:36
DX: R11.2 Nausea with vomiting, unspecified (principal); R10.9 Unspecified abdominal pain; Z53.21 Procedure and treatment not carried out due to patient leaving prior to being seen by health care provider
CPT/HCPCS: 81001

== ENCOUNTER 2017-05-29 08:56 | Emergency (ER) | payer OTHER ==
[2017-05-29 09:20] VITALS: BP 96/72
== END 2017-05-29 14:00 | disposition left against medical advice (07) ==
LOC: ED 08:56
DX: K85.90 Acute pancreatitis without necrosis or infection, unspecified (principal); Z53.21 Procedure and treatment not carried out due to patient leaving prior to being seen by health care provider

== ENCOUNTER 2017-06-16 08:46 | Emergency (ER) | payer OTHER ==
[2017-06-16 09:40] VITALS: BP 122/80
== END 2017-06-16 09:40 | disposition left against medical advice (07) ==
LOC: ED 08:46
DX: Z53.21 Procedure and treatment not carried out due to patient leaving prior to being seen by health care provider (principal)

== ENCOUNTER 2017-06-18 08:09 | Emergency (ER) | payer OTHER ==
[2017-06-18] MEDS ORDERED: DILAUDID IV ONE ×2 (09:23→12:12)
[2017-06-18] MEDS ORDERED: BENADRYL IV ONE ×2 (09:23→12:12)
[2017-06-18] MEDS ORDERED: PHENERGAN PR ONE ×2 (09:24→12:12)
[2017-06-18] MEDS ORDERED: NACL 0.9% 1000 ML 1,000 ML IV ONE ×2 (09:24→10:56)
[2017-06-18 10:18] LABS: Basophils % (Auto) 0.8 % (0.0-1.8); Eosinophils % (Auto) 0.8 % (0.0-4.3); Hematocrit 35.3 % (30.3-42.9); Hemoglobin 11.2 gm/dl (10.1-14.3); Lymphocytes # (Auto) 2.2 K/mm3 (1.2-5.4); Lymphocytes % (Auto) 38.7 % (13.4-35.0); Mean Corpuscular HGB Conc 32 % (30-34); Mean Corpuscular Hemoglobin 27 pg (28-32); Mean Corpuscular Volume 85 fl (79-97); Monocytes # (Auto) 0.5 K/mm3 (0.0-0.8); Monocytes % (Auto) 8.1 % (0.0-7.3); Platelet Count 278 K/mm3 (140-440); Red Blood Count 4.17 M/mm3 (3.65-5.03); Red Cell Distribution Width 16.8 % (13.2-15.2)
[2017-06-18 10:24] LABS: Bilirubin,Urine NEG (Negative); Blood,Urine SM (Negative); Nitrite,Urine NEG (Negative); Protein,Urine <15 mg/dL mg/dL (Negative); Urobilinogen,Urine < 2.0 mg/dL (<2.0); WBC,Urine < 1.0 /HPF (0.0-6.0)
[2017-06-18 10:45] LABS: Alanine Aminotransferase 18 units/L (7-56); Albumin 4.4 g/dL (3.9-5); Amphetamine Screen,Urine PRESUMPTIVE NEGATIVE; BUN/Creatinine Ratio 28; Benzodiazepines Screen,Urine PRESUMPTIVE NEGATIVE; Blood Urea Nitrogen 17 mg/dL (7-17); Calcium 8.6 mg/dL (8.4-10.2); Cocaine Screen,Urine PRESUMPTIVE NEGATIVE; Hemolysis Index 22; Methadone Screen,Urine PRESUMPTIVE NEGATIVE; Opiate Screen,Urine PRESUMPTIVE NEGATIVE
[2017-06-18 10:49] LABS: Color,Urine Yellow (Yellow)
[2017-06-18 11:01] LABS: Cannabinoid Screen,Urine PRESUMPTIVE POSITIVE
[2017-06-18] MEDS ORDERED: BENTYL IM ONE (11:06)
--- NOTE | 2017-06-18 11:34 | Emergency Department Report ---
ED Abdominal Pain HPI - General Chief Complaint: Abdominal Pain Stated Complaint: ABDOMINAL PAIN/NAUSEA VOMITING Time Seen by Provider: 06/18/17 09:02 Source: patient Mode of arrival: Wheelchair Limitations: No Limitations - History of Present Illness Initial Comments: 41-year-old female with a past medical history gastroparesis, asthma, hypertension, IBS, kidney stones, previous ovarian and lung cancer, chronic pancreatitis, and anemia with previous abdominal surgeries presented also complains of abdominal pain that worsened yesterday. Patient has pain greatest in the upper abdomen. Symptoms similar to previous episodes of pancreatitis. Pain is constant, sharp, severe and Worse with palpation. No alleviating factors. Poss associated nausea, vomiting, and diarrhea with poor by mouth tolerance despite clear liquid diet. Patient denies fever, melena, or hematochezia. GI Dr.: Dr. Carlos OVALLE. Tony Langley Severity scale (0 -10): 5 - Related Data Home Medications Medication Instructions Recorded Confirmed Last Taken Estrogens, Conjugated [Premarin] 1.25 mg PO BID 03/06/17 03/06/17 Unknown Previous Rx's Medication Instructions Recorded Last Taken Type Pantoprazole [Protonix TAB] 40 mg PO BID #60 tablet 03/07/17 Unknown Rx Nitrofurantoin Monohyd/M-Cryst 100 mg PO BID #14 capsule 04/20/17 Unknown Rx [Macrobid 100 mg Capsule] Promethazine [Phenergan SUPPOS] 25 mg UT Q8H PRN #20 supp.rect 06/18/17 Unknown Rx oxyCODONE /ACETAMINOPHEN [Percocet 1 tab PO Q6HR PRN #20 tablet 06/18/17 Unknown Rx 5/325 mg] Allergies Allergy/AdvReac Type Severity Reaction Status Date / Time codeine Allergy Itching Verified 12/24/16 08:17 fentanyl Allergy Hives Verified 12/24/16 08:17 ketorolac tromethamine Allergy Itching Verified 12/24/16 08:17 [From Toradol] metoclopramide HCl Allergy Hives Verified 12/24/16 08:17 [From Reglan] morphine Allergy Hives Verified 12/24/16 08:17 ondansetron HCl [From Zofran] Allergy Hives Verified 12/24/16 08:17 prochlorperazine edisylate Allergy Hives Verified 12/24/16 08:17 [From Compazine] prochlorperazine maleate Allergy Hives Verified 12/24/16 08:17 [From Compazine] ED Review of Systems ROS: Stated complaint: ABDOMINAL PAIN/NAUSEA VOMITING Other details as noted in HPI Comment: All other systems reviewed and negative Other: Constitutional: No fevers chills or weight loss Eyes: No eye pain visual changes or discharge ENT: No ear pain or throat pain Neck: Denies pain Respiratory: Denies cough wheezing shortness of breath Cardiovascular: Denies chest pain, palpitations, syncope GI: as per hpi : Denies dysuria Musculoskeletal: Denies back pain, joint swelling Skin: Denies rash, lesions, erythema Neurologic: Denies headache, numbness, weakness Psychiatric: Denies suicidal ideation, hallucinations ED Past Medical Hx - Past Medical History Hx Hypertension: Yes Hx CVA: No Hx Heart Attack/AMI: No Hx Congestive Heart Failure: No Hx Diabetes: No Hx Deep Vein Thrombosis: No Hx Pulmonary Embolism: No Hx GERD: Yes (Gastroparesis) Hx Liver Disease: No Hx Renal Disease: Yes (renal failure- now in remission) Hx Sickle Cell Disease: No Hx Arthritis: No Hx Headaches / Migraines: No Hx Seizures: No Hx Kidney Stones: Yes Hx Psychiatric Treatment: No Hx Asthma: Yes Hx COPD: No Hx Tuberculosis: No Hx Dementia: No Hx HIV: No Additional medical history: ovarian/lung ca, gastroparesis, IBS, chronic pancreatitis, anemia. (LYMPHOMA LUNG), pyelonephritis, herpes. PORT RIGHT CHEST - Surgical History Hx Coronary Stent: No Hx Open Heart Surgery: No Hx Pacemaker: No Hx Internal Defibrillator: No Hx Cholecystectomy: Yes Hx Appendectomy: No Hx Breast Surgery: No Additional Surgical History: fistula repair, lower bowel dissection, stents (in/ out), hysterectomy. Power port - Social History Smoking Status: Never Smoker Substance Use Type: None - Medications Home Medications: Home Medications Medication Instructions Recorded Confirmed Last Taken Type Estrogens, Conjugated [Premarin] 1.25 mg PO BID 03/06/17 03/06/17 Unknown History Pantoprazole [Protonix TAB] 40 mg PO BID #60 tablet 03/07/17 Unknown Rx Nitrofurantoin Monohyd/M-Cryst 100 mg PO BID #14 capsule 04/20/17 Unknown Rx [Macrobid 100 mg Capsule] Promethazine [Phenergan SUPPOS] 25 mg UT Q8H PRN #20 supp.rect 06/18/17 Unknown Rx oxyCODONE /ACETAMINOPHEN [Percocet 1 tab PO Q6HR PRN #20 tablet 06/18/17 Unknown Rx 5/325 mg] ED Physical Exam - General Limitations: No Limitations - Other Other exam information: General: No limitations, patient is alert in no acute distress Head exam: Atraumatic, normocephalic Eyes exam: Normal appearance ENT: Moist mucous membrane, normal oropharynx Neck exam: Normal inspection, full range of motion, no meningismus nontender Respiratory exam: Clear to auscultation bilateral, no wheezes, rales, crackles Cardiovascular: Normal rate and rhythm, normal heart sounds Abdomen: Soft, nondistended, suprapubic vertical scar lower abdominal. Upper abdominal tenderness, no rebound, no guarding Extremity: Full range of motion normal inspection no deformity Back: Normal Inspection, full range of motion, no tenderness Neurologic: Alert, oriented x3, cranial nerves intact, no motor or sensory deficit Psychiatric: normal affect, normal mood Skin: Warm, dry, intact ED Course Vital Signs 06/18/17 06/18/17 06/18/17 08:12 09:46 10:00 Temperature 98.6 F Pulse Rate 102 H 92 H 82 Respiratory 16 12 17 Rate Blood Pressure 117/94 117/75 121/78 O2 Sat by Pulse 98 100 100 Oximetry 06/18/17 06/18/17 06/18/17 10:16 10:30 10:56 Temperature Pulse Rate 72 79 Respiratory 17 13 18 Rate Blood Pressure 121/78 129/89 O2 Sat by Pulse 100 99 98 Oximetry 06/18/17 06/18/17 11:21 11:30 Temperature Pulse Rate Respiratory Rate Blood Pressure 129/89 132/85 O2 Sat by Pulse 85 99 Oximetry ED Medical Decision Making - Lab Data Result diagrams: 06/18/17 09:50 06/18/17 09:50 Lab Results 06/18/17 06/18/17 06/18/17 Range/Units 09:50 09:50 09:50 WBC 5.6 (4.5-11.0) K/mm3 RBC 4.17 (3.65-5.03) M/mm3 Hgb 11.2 (10.1-14.3) gm/dl Hct 35.3 (30.3-42.9) % MCV 85 (79-97) fl MCH 27 L (28-32) pg MCHC 32 (30-34) % RDW 16.8 H (13.2-15.2) % Plt Count 278 (140-440) K/mm3 Lymph % (Auto) 38.7 H (13.4-35.0) % [place] % (Auto) 8.1 H (0.0-7.3) % Eos % (Auto) 0.8 (0.0-4.3) % Baso % (Auto) 0.8 (0.0-1.8) % Lymph # 2.2 (1.2-5.4) K/mm3 [place] # 0.5 (0.0-0.8) K/mm3 Eos # 0.0 (0.0-0.4) K/mm3 Baso # 0.0 (0.0-0.1) K/mm3 Seg Neutrophils % 51.6 (40.0-70.0) % Seg Neutrophils # 2.9 (1.8-7.7) K/mm3 Sodium 140 (137-145) mmol/L Potassium 4.2 (3.6-5.0) mmol/L Chloride 102.8 (98-107) mmol/L Carbon Dioxide 26 (22-30) mmol/L Anion Gap 15 mmol/L BUN 17 (7-17) mg/dL Creatinine 0.6 L (0.7-1.2) mg/dL Estimated GFR > 60 ml/min BUN/Creatinine Ratio 28 % Glucose 94 (65-100) mg/dL Calcium 8.6 (8.4-10.2) mg/dL Total Bilirubin 0.20 (0.1-1.2) mg/dL AST 44 H (5-40) units/L ALT 18 (7-56) units/L Alkaline Phosphatase 65 (35-129) units/L Total Protein 7.4 (6.3-8.2) g/dL Albumin 4.4 (3.9-5) g/dL Albumin/Globulin Ratio 1.5 % Lipase (13-60) units/L Urine Color Yellow (Yellow) Urine Turbidity Clear (Clear) Urine pH 6.0 (5.0-7.0) Ur Specific Jay 1.008 (1.003-1.030) Urine Protein <15 mg/dl (Negative) mg/dL Urine Glucose (UA) Neg (Negative) mg/dL Urine Ketones Neg (Negative) mg/dL Urine Blood Sm (Negative) Urine Nitrite Neg (Negative) Urine Bilirubin Neg (Negative) Urine Urobilinogen < 2.0 (<2.0) mg/dL Ur Leukocyte Esterase Neg (Negative) Urine WBC (Auto) < 1.0 (0.0-6.0) /HPF Urine RBC (Auto) 1.0 (0.0-6.0) /HPF U Epithel Cells (Auto) < 1.0 (0-13.0) /HPF Urine Opiates Screen Urine Methadone Screen Ur Barbiturates Screen Ur Phencyclidine Scrn Ur Amphetamines Screen U Benzodiazepines Scrn Urine Cocaine Screen U Marijuana (THC) Screen Drugs of Abuse Note 06/18/17 06/18/17 Range/Units 09:50 09:50 WBC (4.5-11.0) K/mm3 RBC (3.65-5.03) M/mm3 Hgb (10.1-14.3) gm/dl Hct (30.3-42.9) % MCV (79-97) fl MCH (28-32) pg MCHC (30-34) % RDW (13.2-15.2) % Plt Count (140-440) K/mm3 Lymph % (Auto) (13.4-35.0) % [place] % (Auto) (0.0-7.3) % Eos % (Auto) (0.0-4.3) % Baso % (Auto) (0.0-1.8) % Lymph # (1.2-5.4) K/mm3 [place] # (0.0-0.8) K/mm3 Eos # (0.0-0.4) K/mm3 Baso # (0.0-0.1) K/mm3 Seg Neutrophils % (40.0-70.0) % Seg Neutrophils # (1.8-7.7) K/mm3 Sodium (137-145) mmol/L Potassium (3.6-5.0) mmol/L Chloride (98-107) mmol/L Carbon Dioxide (22-30) mmol/L Anion Gap mmol/L BUN (7-17) mg/dL Creatinine (0.7-1.2) mg/dL Estimated GFR ml/min BUN/Creatinine Ratio % Glucose (65-100) mg/dL Calcium (8.4-10.2) mg/dL Total Bilirubin (0.1-1.2) mg/dL AST (5-40) units/L ALT (7-56) units/L Alkaline Phosphatase (35-129) units/L Total Protein (6.3-8.2) g/dL Albumin (3.9-5) g/dL Albumin/Globulin Ratio % Lipase 183 H (13-60) units/L Urine Color (Yellow) Urine Turbidity (Clear) Urine pH (5.0-7.0) Ur Specific Jay (1.003-1.030) Urine Protein (Negative) mg/dL Urine Glucose (UA) (Negative) mg/dL Urine Ketones (Negative) mg/dL Urine Blood (Negative) Urine Nitrite (Negative) Urine Bilirubin (Negative) Urine Urobilinogen (<2.0) mg/dL Ur Leukocyte Esterase (Negative) Urine WBC (Auto) (0.0-6.0) /HPF Urine RBC (Auto) (0.0-6.0) /HPF U Epithel Cells (Auto) (0-13.0) /HPF Urine Opiates Screen Presumptive negative Urine Methadone Screen Presumptive negative Ur Barbiturates Screen Presumptive negative Ur Phencyclidine Scrn Presumptive negative Ur Amphetamines Screen Presumptive negative U Benzodiazepines Scrn Presumptive negative Urine Cocaine Screen Presumptive negative U Marijuana (THC) Screen Presumptive positive Drugs of Abuse Note Disclamer - Medical Decision Making Patient is having acute exacerbation of her intermittent chronic abdominal pain. Pain improved to ED treatment. Vomiting controlled per will be discharged home on symptomatic treatment and follow up will be encouraged. - Differential Diagnosis chronic pain, IBS, pancreatitis, gastroenteritis Critical Care Time: No Critical care attestation.: If time is entered above; I have spent that time in minutes in the direct care of this critically ill patient, excluding procedure time. ED Disposition Clinical Impression: Abdominal pain, Vomiting and diarrhea, Chronic pancreatitis Disposition: -01 TO HOME OR SELFCARE Is pt being admited?: No Does the pt Need Aspirin: No Condition: Stable Instructions: Abdominal Pain (ED), Acute Nausea and Vomiting (ED), Acute Diarrhea (ED) Additional Instructions: Take the medication as prescribed. Follow-up with his doctors. Return if symptoms worsen Prescriptions: oxyCODONE /ACETAMINOPHEN [Percocet 5/325 mg] 1 tab PO Q6HR PRN #20 tablet PRN Reason: Pain Promethazine [Phenergan SUPPOS] 25 mg UT Q8H PRN #20 supp.rect PRN Reason: Nausea Referrals: CHRISS LLOYD MD [Staff Physician] - 3-5 Days DEBO CONWAY MD [Staff Physician] - 3-5 Days Time of Disposition: 13:45
[2017-06-18 13:41] VITALS: BP 133/91
== END 2017-06-18 14:05 | disposition home or self-care (01) ==
LOC: ED 08:09
DX: K86.1 Other chronic pancreatitis (principal); R10.10 Upper abdominal pain, unspecified; R19.7 Diarrhea, unspecified; R11.0 Nausea; D64.9 Anemia, unspecified; Z88.5 Allergy status to narcotic agent; Z88.8 Allergy status to other drugs, medicaments and biological substances
CPT/HCPCS: 36415; 80053; 80307; 81001; 83690; 85025; 96361; 96374; 96375; 96376; 99284; J0500; J1170; J1200; J7030

== ENCOUNTER 2017-06-27 10:22 | Emergency (ER) | payer OTHER ==
[2017-06-27 10:32] VITALS: BP 151/70
[2017-06-27 10:57] LABS: Basophils % (Auto) 0.6 % (0.0-1.8); Eosinophils # (Auto) 0.1 K/mm3 (0.0-0.4); Eosinophils % (Auto) 1.6 % (0.0-4.3); Hematocrit 34.1 % (30.3-42.9); Hemoglobin 11.1 gm/dl (10.1-14.3); Lymphocytes # (Auto) 2.1 K/mm3 (1.2-5.4); Lymphocytes % (Auto) 37.6 % (13.4-35.0); Mean Corpuscular HGB Conc 33 % (30-34); Mean Corpuscular Hemoglobin 27 pg (28-32); Mean Corpuscular Volume 83 fl (79-97); Monocytes # (Auto) 0.5 K/mm3 (0.0-0.8); Monocytes % (Auto) 9.1 % (0.0-7.3); Red Blood Count 4.11 M/mm3 (3.65-5.03); Red Cell Distribution Width 16.1 % (13.2-15.2)
[2017-06-27 11:11] LABS: Alanine Aminotransferase 31 units/L (7-56); Albumin 4.6 g/dL (3.9-5); BUN/Creatinine Ratio 22; Blood Urea Nitrogen 11 mg/dL (7-17); Calcium 8.8 mg/dL (8.4-10.2); Hemolysis Index 51; Lipase 151 units/L (13-60)
[2017-06-27 11:33] LABS: Platelet Count 159 K/mm3 (140-440)
== END 2017-06-27 12:30 | disposition left against medical advice (07) ==
LOC: ED 10:22
DX: R79.9 Abnormal finding of blood chemistry, unspecified (principal); Z53.21 Procedure and treatment not carried out due to patient leaving prior to being seen by health care provider
CPT/HCPCS: 36415; 80053; 83690; 85025

== ENCOUNTER 2017-07-08 08:02 | Emergency (ER) | payer OTHER ==
[2017-07-08] MEDS ORDERED: BENADRYL IV ONE (09:17)
[2017-07-08] MEDS ORDERED: PHENERGAN PR ONE (09:17)
[2017-07-08] MEDS ORDERED: DILAUDID IV ONE (09:17)
[2017-07-08] MEDS ORDERED: NACL 0.9% 1000 ML 1,000 ML IV ONE (09:18)
[2017-07-08 09:55] LABS: Basophils % (Auto) 0.7 % (0.0-1.8); Eosinophils # (Auto) 0.1 K/mm3 (0.0-0.4); Eosinophils % (Auto) 1.9 % (0.0-4.3); Hemoglobin 12.5 gm/dl (10.1-14.3); Lymphocytes # (Auto) 1.2 K/mm3 (1.2-5.4); Lymphocytes % (Auto) 35.2 % (13.4-35.0); Mean Corpuscular HGB Conc 32 % (30-34); Mean Corpuscular Hemoglobin 27 pg (28-32); Mean Corpuscular Volume 83 fl (79-97); Monocytes # (Auto) 0.3 K/mm3 (0.0-0.8); Monocytes % (Auto) 7.7 % (0.0-7.3); Platelet Count 169 K/mm3 (140-440); Red Blood Count 4.72 M/mm3 (3.65-5.03); Red Cell Distribution Width 16.2 % (13.2-15.2)
[2017-07-08 09:57] VITALS: BP 120/82
[2017-07-08 10:09] LABS: Alanine Aminotransferase 17 units/L (7-56); Albumin 4.2 g/dL (3.9-5); BUN/Creatinine Ratio 14; Blood Urea Nitrogen 10 mg/dL (7-17); Calcium 8.5 mg/dL (8.4-10.2); Hemolysis Index 36
--- NOTE | 2017-07-08 10:56 | Emergency Department Report ---
ED Abdominal Pain HPI - General Chief Complaint: Abdominal Pain Stated Complaint: ABDOMINAL PAIN/DIARRHEA Source: patient, EMS Mode of arrival: Stretcher Limitations: No Limitations - History of Present Illness Initial Comments: Patient has chronic abdominal pain. She states to me when asked "I think it is time for a pain clinic". She does take chronic narcotics. She states that she was either prescribed Dr. Conway or Dr. Kendall Huff for "colitis". She denies fever or chills. She states that she's been vomiting and has not been able to take her medication. She has had multiple emergency department visits in the past. MD Complaint: abdominal pain -: days(s) Location: diffuse Radiation: none Severity: moderate (recurrent), severe Quality: aching Consistency: constant Improves With: nothing Worsens With: nothing Context: other Associated Symptoms: vomiting, diarrhea - Related Data Home Medications Medication Instructions Recorded Confirmed Last Taken Estrogens, Conjugated [Premarin] 1.25 mg PO BID 03/06/17 03/06/17 Unknown Previous Rx's Medication Instructions Recorded Last Taken Type Pantoprazole [Protonix TAB] 40 mg PO BID #60 tablet 03/07/17 Unknown Rx Nitrofurantoin Monohyd/M-Cryst 100 mg PO BID #14 capsule 04/20/17 Unknown Rx [Macrobid 100 mg Capsule] Promethazine [Phenergan SUPPOS] 25 mg CA Q8H PRN #20 supp.rect 06/18/17 Unknown Rx oxyCODONE /ACETAMINOPHEN [Percocet 1 tab PO Q6HR PRN #20 tablet 06/18/17 Unknown Rx 5/325 mg] Promethazine [Phenergan] 25 mg CA Q6HR PRN #10 supp.rect 07/08/17 Unknown Rx oxyCODONE /ACETAMINOPHEN [Percocet 1 tab PO Q4HR #14 tab 07/08/17 Unknown Rx 5/325] Allergies Allergy/AdvReac Type Severity Reaction Status Date / Time codeine Allergy Itching Verified 12/24/16 08:17 fentanyl Allergy Hives Verified 12/24/16 08:17 ketorolac tromethamine Allergy Itching Verified 12/24/16 08:17 [From Toradol] metoclopramide HCl Allergy Hives Verified 12/24/16 08:17 [From Reglan] morphine Allergy Hives Verified 12/24/16 08:17 ondansetron HCl [From Zofran] Allergy Hives Verified 12/24/16 08:17 prochlorperazine edisylate Allergy Hives Verified 12/24/16 08:17 [From Compazine] prochlorperazine maleate Allergy Hives Verified 12/24/16 08:17 [From Compazine] ED Review of Systems ROS: Stated complaint: ABDOMINAL PAIN/DIARRHEA Other details as noted in HPI Constitutional: denies: chills, fever Eyes: denies: eye pain, eye discharge, vision change ENT: denies: ear pain, throat pain Respiratory: denies: cough, shortness of breath, wheezing Cardiovascular: denies: chest pain, palpitations Endocrine: no symptoms reported Gastrointestinal: abdominal pain, nausea, vomiting, diarrhea Genitourinary: denies: urgency, dysuria, discharge Musculoskeletal: denies: back pain, joint swelling, arthralgia Skin: denies: rash, lesions Neurological: denies: headache, weakness, paresthesias Psychiatric: denies: anxiety, depression Hematological/Lymphatic: denies: easy bleeding, easy bruising ED Past Medical Hx - Past Medical History Hx Hypertension: Yes Hx CVA: No Hx Heart Attack/AMI: No Hx Congestive Heart Failure: No Hx Diabetes: No Hx Deep Vein Thrombosis: No Hx Pulmonary Embolism: No Hx GERD: Yes (Gastroparesis) Hx Liver Disease: No Hx Renal Disease: Yes (renal failure- now in remission) Hx Sickle Cell Disease: No Hx Arthritis: No Hx Headaches / Migraines: No Hx Seizures: No Hx Kidney Stones: Yes Hx Psychiatric Treatment: No Hx Asthma: Yes Hx COPD: No Hx Tuberculosis: No Hx Dementia: No Hx HIV: No Additional medical history: ovarian/lung ca, gastroparesis, IBS, chronic pancreatitis, anemia. (LYMPHOMA LUNG), pyelonephritis, herpes. PORT RIGHT CHEST - Surgical History Hx Coronary Stent: No Hx Open Heart Surgery: No Hx Pacemaker: No Hx Internal Defibrillator: No Hx Cholecystectomy: Yes Hx Appendectomy: No Hx Breast Surgery: No Additional Surgical History: fistula repair, lower bowel dissection, stents (in/ out), hysterectomy. Power port - Social History Smoking Status: Never Smoker Substance Use Type: None - Medications Home Medications: Home Medications Medication Instructions Recorded Confirmed Last Taken Type Estrogens, Conjugated [Premarin] 1.25 mg PO BID 03/06/17 03/06/17 Unknown History Pantoprazole [Protonix TAB] 40 mg PO BID #60 tablet 03/07/17 Unknown Rx Nitrofurantoin Monohyd/M-Cryst 100 mg PO BID #14 capsule 04/20/17 Unknown Rx [Macrobid 100 mg Capsule] Promethazine [Phenergan SUPPOS] 25 mg CA Q8H PRN #20 supp.rect 06/18/17 Unknown Rx oxyCODONE /ACETAMINOPHEN [Percocet 1 tab PO Q6HR PRN #20 tablet 06/18/17 Unknown Rx 5/325 mg] Promethazine [Phenergan] 25 mg CA Q6HR PRN #10 supp.rect 07/08/17 Unknown Rx oxyCODONE /ACETAMINOPHEN [Percocet 1 tab PO Q4HR #14 tab 07/08/17 Unknown Rx 5/325] ED Physical Exam - General Limitations: No Limitations General appearance: alert, in no apparent distress - Head Head exam: Present: atraumatic, normocephalic - Eye Eye exam: Present: normal appearance. Absent: scleral icterus - ENT ENT exam: Present: mucous membranes moist - Neck Neck exam: Present: normal inspection. Absent: tenderness, meningismus - Respiratory Respiratory exam: Present: normal lung sounds bilaterally. Absent: respiratory distress - Cardiovascular Cardiovascular Exam: Present: regular rate, normal rhythm. Absent: systolic murmur, diastolic murmur, rubs, gallop - GI/Abdominal GI/Abdominal exam: Present: soft, normal bowel sounds. Absent: distended, tenderness, guarding, rebound, rigid - Extremities Exam Extremities exam: Present: normal inspection - Back Exam Back exam: Present: normal inspection - Neurological Exam Neurological exam: Present: alert, oriented X3, CN II-XII intact. Absent: motor sensory deficit - Psychiatric Psychiatric exam: Present: normal affect, normal mood - Skin Skin exam: Present: warm, dry, intact, normal color. Absent: rash ED Course Vital Signs 07/08/17 07/08/17 07/08/17 08:20 08:30 08:46 Temperature 99.0 F Pulse Rate 81 78 77 Respiratory 26 H 15 11 L Rate Blood Pressure 117/75 120/74 Blood Pressure 120/74 [Right] O2 Sat by Pulse 100 100 Oximetry 07/08/17 07/08/17 07/08/17 09:00 09:16 09:30 Temperature Pulse Rate 79 Respiratory 14 Rate Blood Pressure 120/82 117/75 117/75 Blood Pressure [Right] O2 Sat by Pulse 99 86 Oximetry 07/08/17 07/08/17 09:45 09:55 Temperature Pulse Rate Respiratory Rate Blood Pressure 120/82 Blood Pressure [Right] O2 Sat by Pulse 79 L 100 Oximetry - Reevaluation(s) Reevaluation #1: Patient was given analgesia and antiemetic. Her pain is improved. Her labs are generally benign. I don't see an indication for more advanced workup at this time. It is certainly possible that the patient has chronic pancreatitis and diarrhea associated. 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 She has chronic pain. She will be discharged. We will attempt to send stool studies. She is referred back to Dr. Conway for further care and evaluation. Pain management is certainly reasonable. She will be given appropriate return criteria. 07/08/17 11:03 ED Medical Decision Making - Lab Data Result diagrams: 07/08/17 09:44 07/08/17 09:44 Critical care attestation.: If time is entered above; I have spent that time in minutes in the direct care of this critically ill patient, excluding procedure time. ED Disposition Clinical Impression: Chronic abdominal pain Diarrhea Qualifiers: Diarrhea type: unspecified type Qualified Code(s): R19.7 - Diarrhea, unspecified Vomiting Qualifiers: Vomiting type: unspecified Vomiting Intractability: non-intractable Nausea presence: with nausea Qualified Code(s): R11.2 - Nausea with vomiting, unspecified Disposition: TO HOME OR SELFCARE Is pt being admited?: No Does the pt Need Aspirin: No Condition: Stable Instructions: Abdominal Pain (ED), Acute Diarrhea (ED) Additional Instructions: Follow-up with Dr. Conway. Return any acute change or problem. Rx as needed. If we can send stool studies Dr. Conway can check them on Monday or Monday. Prescriptions: oxyCODONE /ACETAMINOPHEN [Percocet 5/325] 1 tab PO Q4HR #14 tab Promethazine [Phenergan] 25 mg CA Q6HR PRN #10 supp.rect PRN Reason: Nausea Referrals: PRIMARY MD NISH [Primary Care Provider] - 3-5 Days DEBO CONWAY MD [Staff Physician] - 2-3 Days Time of Disposition: 11:06
[2017-07-08] MEDS ORDERED: PHENERGAN PO ONE (11:10)
[2017-07-08] MEDS ORDERED: PERCOCET 5/325 PO ONE (11:10)
== END 2017-07-08 12:06 | disposition home or self-care (01) ==
LOC: ED 08:02
DX: R10.84 Generalized abdominal pain (principal); G89.29 Other chronic pain; R11.2 Nausea with vomiting, unspecified; R19.7 Diarrhea, unspecified; I10 Essential (primary) hypertension; K21.9 Gastro-esophageal reflux disease without esophagitis; J45.909 Unspecified asthma, uncomplicated; Z90.49 Acquired absence of other specified parts of digestive tract; Z90.710 Acquired absence of both cervix and uterus; Z88.6 Allergy status to analgesic agent
CPT/HCPCS: 36415; 80053; 83690; 85025; 96361; 96374; 96375; 99284; J1170; J1200; J7030

== ENCOUNTER 2017-07-16 06:00 | Emergency (ER) | payer OTHER ==
[2017-07-16 07:38] LABS: Eosinophils # (Auto) 0.1 K/mm3 (0.0-0.4); Eosinophils % (Auto) 1.5 % (0.0-4.3); Hemoglobin 10.6 gm/dl (10.1-14.3); Lymphocytes # (Auto) 1.8 K/mm3 (1.2-5.4); Lymphocytes % (Auto) 45.5 % (13.4-35.0); Monocytes # (Auto) 0.4 K/mm3 (0.0-0.8); Monocytes % (Auto) 9.6 % (0.0-7.3)
[2017-07-16 07:52] LABS: Hematocrit 32.5 % (30.3-42.9); Mean Corpuscular HGB Conc 33 % (30-34); Mean Corpuscular Hemoglobin 27 pg (28-32); Mean Corpuscular Volume 81 fl (79-97); Platelet Count 207 K/mm3 (140-440); Red Cell Distribution Width 15.7 % (13.2-15.2)
[2017-07-16 08:05] LABS: BUN/Creatinine Ratio 15; Blood Urea Nitrogen 9 mg/dL (7-17); Calcium 8.3 mg/dL (8.4-10.2)
[2017-07-16 08:06] LABS: Alanine Aminotransferase 9 units/L (7-56); Albumin 4.1 g/dL (3.9-5); Hemolysis Index 2
[2017-07-16] MEDS ORDERED: NACL 0.9% 1000 ML 1,000 ML IV ONE (09:30)
[2017-07-16] MEDS ORDERED: DILAUDID IV ONE (09:37)
[2017-07-16] MEDS ORDERED: PHENERGAN PR ONE (09:37)
--- NOTE | 2017-07-16 09:39 | Emergency Department Report ---
ED Abdominal Pain HPI - General Chief Complaint: Abdominal Pain Stated Complaint: NAUSEA/VOMITING Time Seen by Provider: 07/16/17 09:17 Source: patient, EMS Mode of arrival: Stretcher Limitations: No Limitations - History of Present Illness Initial Comments: Patient with history of chronic pain says she has a history of ovarian cancer with lung cancer status post remote hysterectomy she has a history of irritable bowel syndrome and chronic abdominal pain with chronic pancreatitis is back with an episode of abdominal pain. She also has a history of using chlorhexidine has a mouth rinse she swallowed a little bit of that today and it made her sick but she doesn't any other complaints. no u/a c/o, no bladk or bloody stool, no hematuria, here eval chronic abd pain, thinks it's her pancreas and ibs., no fever, ? loose stool, no other c/op, no cp , no cough -: days(s) Location: diffuse Radiation: back Severity: mild, moderate Severity scale (0 -10): 8 - Related Data LMP (females 10-50): other (hysterectomy) Home Medications Medication Instructions Recorded Confirmed Last Taken Estrogen,Pam/Me-Testosterone 1 each PO DAILY 07/16/17 07/16/17 Unknown [Estrogen-Methyltestos F.s. Tab] Previous Rx's Medication Instructions Recorded Last Taken Type Promethazine [Phenergan] 25 mg OR Q6HR PRN #10 supp.rect 07/08/17 Unknown Rx Allergies Allergy/AdvReac Type Severity Reaction Status Date / Time codeine Allergy Itching Verified 12/24/16 08:17 fentanyl Allergy Hives Verified 12/24/16 08:17 ketorolac tromethamine Allergy Itching Verified 12/24/16 08:17 [From Toradol] metoclopramide HCl Allergy Hives Verified 12/24/16 08:17 [From Reglan] morphine Allergy Hives Verified 12/24/16 08:17 ondansetron HCl [From Zofran] Allergy Hives Verified 12/24/16 08:17 prochlorperazine edisylate Allergy Hives Verified 12/24/16 08:17 [From Compazine] prochlorperazine maleate Allergy Hives Verified 12/24/16 08:17 [From Compazine] ED Review of Systems ROS: Stated complaint: NAUSEA/VOMITING Other details as noted in HPI Comment: All other systems reviewed and negative Constitutional: denies: diaphoresis, fever, malaise, weakness ENT: denies: congestion Respiratory: denies: shortness of breath, SOB with exertion, SOB at rest, stridor, wheezing Cardiovascular: denies: chest pain, palpitations, dyspnea on exertion, orthopnea , edema, syncope, paroxysmal nocturnal dyspnea Endocrine: denies: excessive sweating, flushing Gastrointestinal: abdominal pain, nausea, vomiting. denies: diarrhea, hematemesis, melena, hematochezia Musculoskeletal: denies: arthralgia, myalgia Neurological: denies: headache, weakness, numbness, paresthesias, confusion, abnormal gait, vertigo ED Past Medical Hx - Past Medical History Previous Medical History?: Yes Hx Hypertension: Yes Hx CVA: No Hx Heart Attack/AMI: No Hx Congestive Heart Failure: No Hx Diabetes: No Hx Deep Vein Thrombosis: No Hx Pulmonary Embolism: No Hx GERD: Yes (Gastroparesis) Hx Liver Disease: No Hx Renal Disease: Yes (renal failure- now in remission) Hx Sickle Cell Disease: No Hx Arthritis: No Hx Headaches / Migraines: No Hx Seizures: No Hx Kidney Stones: Yes Hx Psychiatric Treatment: No Hx Asthma: Yes Hx COPD: No Hx Tuberculosis: No Hx Dementia: No Hx HIV: No Additional medical history: ovarian/lung ca, gastroparesis, IBS, chronic pancreatitis, anemia. (LYMPHOMA LUNG), pyelonephritis, herpes. PORT RIGHT CHEST - Surgical History Hx Coronary Stent: No Hx Open Heart Surgery: No Hx Pacemaker: No Hx Internal Defibrillator: No Hx Cholecystectomy: Yes Hx Appendectomy: No Hx Breast Surgery: No Additional Surgical History: fistula repair, lower bowel dissection, stents (in/ out), hysterectomy. Power port - Social History Smoking Status: Never Smoker - Medications Home Medications: Home Medications Medication Instructions Recorded Confirmed Last Taken Type Promethazine [Phenergan] 25 mg OR Q6HR PRN #10 supp.rect 07/08/17 07/16/17 Unknown Rx Estrogen,Pam/Me-Testosterone 1 each PO DAILY 07/16/17 07/16/17 Unknown History [Estrogen-Methyltestos F.s. Tab] ED Physical Exam - General Limitations: No Limitations General appearance: alert, anxious - Head Head exam: Present: atraumatic, normocephalic - Eye Eye exam: Present: PERRL, EOMI - ENT ENT exam: Present: normal exam, normal orophraynx - Neck Neck exam: Present: normal inspection. Absent: meningismus - Respiratory Respiratory exam: Present: normal lung sounds bilaterally. Absent: respiratory distress, wheezes, rales, rhonchi, stridor, chest wall tenderness, accessory muscle use, decreased breath sounds, prolonged expiratory - Cardiovascular Cardiovascular Exam: Present: regular rate, normal rhythm, normal heart sounds - GI/Abdominal GI/Abdominal exam: Present: soft, tenderness. Absent: guarding, rebound, rigid , mass, pulsatile mass - Extremities Exam Extremities exam: Present: normal inspection, normal capillary refill. Absent: tenderness, pedal edema, joint swelling, calf tenderness - Back Exam Back exam: Present: CVA tenderness (L) - Neurological Exam Neurological exam: Present: alert, oriented X3, CN II-XII intact, normal gait. Absent: motor sensory deficit ED Course Vital Signs 07/16/17 07/16/17 07/16/17 06:17 06:35 06:44 Temperature 98.8 F 98.8 F Pulse Rate 87 87 Respiratory 20 20 20 Rate Blood Pressure 131/91 Blood Pressure 131/91 [Right] O2 Sat by Pulse 99 99 99 Oximetry - Reevaluation(s) Reevaluation #1: 07/16/17 11:14 Patient can IV fluids she was also given pain medication and antinausea medicine awaiting CT and labs ED Medical Decision Making - Lab Data Result diagrams: 07/16/17 07:25 07/16/17 07:25 - Radiology Data Radiology results: report reviewed - Medical Decision Making Patient is pain-free in the ED at this time. CT was unremarkable except for constipation she does not clinically have an acute abdomen at this time lipase was normal urinalysis was negative the remainder of the workup was essentially unremarkable. She is tolerating by mouth. Symptoms are likely related to chronic abdominal pain she is therefore stable for outpatient follow-up she apparently does have an appointment with the pain doctors to go ahead and add Naprosyn and continue her Phenergan and she is to see her regular doctor in 2 days or return if worse Critical care attestation.: If time is entered above; I have spent that time in minutes in the direct care of this critically ill patient, excluding procedure time. ED Disposition Clinical Impression: Chronic abdominal pain, Gastroparesis Disposition: DC-01 TO HOME OR SELFCARE Is pt being admited?: No Condition: Stable Instructions: Abdominal Pain (ED) Additional Instructions: See her doctor tomorrow, return immediately if new or alarming symptoms make sure to follow up with pain clinic doctor Referrals: ROSARIO RIGGINS MD [Primary Care Provider] - 3-5 Days Time of Disposition: 11:17
--- NOTE | 2017-07-16 09:53 | Cat Scan Report ---
CT ABDOMEN PELVIS WITHOUT CONTRAST: HISTORY: Back pain. COMPARISON: 03/05/17. TECHNIQUE: Helical CT in 1.25mm intervals without IV contrast. Sagittal and coronal reconstructions. FINDINGS: Lung bases: Normal. Liver: Normal. Biliary system: Cholecystectomy. No evidence for biliary dilatation. Pancreas: Normal. Spleen: Normal. Kidneys/ureters/bladder: Both kidneys are normal size and position. 1.2 cm cyst at the inferior pole of the left kidney. The renal pyramids are slightly hyperdense consistent with nephrocalcinosis. Focal 3 mm calcification in the mid left kidney probably represents a nonobstructing stone. The ureters are normal course and caliber. The bladder is within normal limits. Adrenal glands: Normal. Aorta: Normal. Intestines: Within normal limits given no oral contrast was administered. Mild fecal retention. Appendix: Normal. Pelvic viscera: Hysterectomy changes are suspected, correlate with history. No adnexal cyst or mass. Ascites: None. Adenopathy: None. Musculoskeletal: Normal. IMPRESSION: No acute inflammatory process. Mild nephrocalcinosis in both kidneys. 3 mm left renal stone. No hydronephrosis. Simple left renal cyst. Surgical changes as described. Mild fecal retention.
[2017-07-16] MEDS ORDERED: BENADRYL ONE (10:04)
[2017-07-16] MEDS ORDERED: BENADRYL IV ONE (10:04)
[2017-07-16 10:32] LABS: Bilirubin,Urine NEG (Negative); Blood,Urine SM (Negative); Color,Urine Straw (Yellow); Protein,Urine <15 mg/dL mg/dL (Negative); RBC,Urine < 1.0 /HPF (0.0-6.0); Urobilinogen,Urine < 2.0 mg/dL (<2.0); WBC,Urine < 1.0 /HPF (0.0-6.0)
[2017-07-16] MEDS ORDERED: FLUSH HEPARIN IV ONE ×2 (11:38→12:23)
[2017-07-16 12:15] VITALS: BP 136/70
== END 2017-07-16 12:22 | disposition home or self-care (01) ==
LOC: ED 06:00
DX: K31.84 Gastroparesis (principal); I12.9 Hypertensive chronic kidney disease with stage 1 through stage 4 chronic kidney disease, or unspecified chronic kidney disease; N18.9 Chronic kidney disease, unspecified; J45.909 Unspecified asthma, uncomplicated; Z90.710 Acquired absence of both cervix and uterus; Z88.5 Allergy status to narcotic agent; Z88.8 Allergy status to other drugs, medicaments and biological substances; Z90.49 Acquired absence of other specified parts of digestive tract
CPT/HCPCS: 36415; 74176; 80053; 81001; 83690; 85025; 96361; 96374; 96375; 99284; J1170; J1200; J1642; J7030

== ENCOUNTER 2017-07-28 08:03 | Emergency (ER) | payer OTHER ==
[2017-07-28 08:18] VITALS: BP 113/77
[2017-07-28] MEDS ORDERED: BENADRYL IV ONE ×2 (13:33→15:21)
[2017-07-28] MEDS ORDERED: ZOFRAN IV ONE ×2 (13:33→15:21)
[2017-07-28] MEDS ORDERED: MORPHINE IV ONE ×2 (13:33→15:21)
--- NOTE | 2017-07-28 13:40 | Emergency Department Report ---
HPI - General Chief Complaint: Nausea/Vomiting/Diarrhea Time Seen by Provider: 07/28/17 13:12 - HPI HPI: 42-year-old female presents to the emergency department with a complaint of nausea, vomiting, diarrhea and abdominal pain for the past day. She also complains of some swelling to the bilateral hands and feet. The patient says "I think it's my lipase." She has a past medical history of gastroparesis, hypertension, nephrolithiasis, chronic pancreatitis, IBS. She has a right-sided chest port. The patient usually follows with Dr. Conway for gastroenterology but says that they recently changed her insurance and she is not sure if she can continue following with him. No recent travel or sick contacts at home. She's been taking some ibuprofen for her symptoms without much relief. ED Past Medical Hx - Past Medical History Hx Hypertension: Yes Hx CVA: No Hx Heart Attack/AMI: No Hx Congestive Heart Failure: No Hx Diabetes: No Hx Deep Vein Thrombosis: No Hx Pulmonary Embolism: No Hx GERD: Yes (Gastroparesis) Hx Liver Disease: No Hx Renal Disease: Yes (renal failure- now in remission) Hx Sickle Cell Disease: No Hx Arthritis: No Hx Headaches / Migraines: No Hx Seizures: No Hx Kidney Stones: Yes Hx Psychiatric Treatment: No Hx Asthma: Yes Hx COPD: No Hx Tuberculosis: No Hx Dementia: No Hx HIV: No Additional medical history: ovarian/lung ca, gastroparesis, IBS, chronic pancreatitis, anemia. (LYMPHOMA LUNG), pyelonephritis, herpes. PORT RIGHT CHEST - Surgical History Hx Coronary Stent: No Hx Open Heart Surgery: No Hx Pacemaker: No Hx Internal Defibrillator: No Hx Cholecystectomy: Yes Hx Appendectomy: No Hx Breast Surgery: No Additional Surgical History: fistula repair, lower bowel dissection, stents (in/ out), hysterectomy. Power port - Social History Smoking Status: Never Smoker Substance Use Type: None - Medications Home Medications: Home Medications Medication Instructions Recorded Confirmed Last Taken Type Estrogen,Pam/Me-Testosterone 1 each PO DAILY 07/16/17 07/16/17 Unknown History [Estrogen-Methyltestos F.s. Tab] Naproxen 250 mg PO Q12HR PRN #15 tablet 07/16/17 Unknown Rx Promethazine [Phenergan TAB] 25 mg PO Q6HR PRN #10 tab 07/16/17 Unknown Rx Promethazine [Phenergan SUPPOS] 25 mg [place] Q8H PRN #8 supp.rect 07/28/17 Unknown Rx oxyCODONE /ACETAMINOPHEN [Percocet 1 tab PO Q6HR PRN #10 tablet 07/28/17 Unknown Rx 5/325] ED Review of Systems ROS: Stated complaint: NAUSEA/VOMITING DIARRHEA Other details as noted in HPI Comment: All other systems reviewed and negative Constitutional: denies: chills, fever Eyes: denies: eye pain, eye discharge, vision change ENT: denies: ear pain, throat pain Respiratory: denies: cough, shortness of breath, wheezing Cardiovascular: denies: chest pain, palpitations Gastrointestinal: abdominal pain, nausea, vomiting, diarrhea Genitourinary: denies: urgency, dysuria, discharge Musculoskeletal: denies: back pain, joint swelling, arthralgia Skin: denies: rash, lesions Neurological: denies: headache, weakness, paresthesias Physical Exam - Physical Exam Vital Signs: Vital Signs 07/28/17 08:13 Temperature 99.0 F Pulse Rate 82 Respiratory 16 Rate Blood Pressure 113/77 O2 Sat by Pulse 97 Oximetry Physical Exam: GENERAL: The patient is well-developed well-nourished. HENT: Normocephalic. Atraumatic. Patient has moist mucous membranes. EYES: Extraocular motions are intact. Pupils equal reactive to light bilaterally. NECK: Supple. Trachea is midline. CHEST/LUNGS: Clear to auscultation. There is no respiratory distress noted. HEART/CARDIOVASCULAR: Regular. There is no tachycardia. There is no murmur. ABDOMEN: Abdomen is soft. Tenderness to palpation to the upper quadrants. No guarding. Patient has normal bowel sounds. There is no abdominal distention. SKIN: There is no rash. There is no edema. There is no diaphoresis. NEURO: The patient is awake, alert, and oriented. The patient is cooperative. The patient has no focal neurologic deficits. The patient has normal speech. MUSCULOSKELETAL: There is no tenderness or deformity. There is no limitation range of motion. There is no evidence of acute injury. ED Course Vital Signs 07/28/17 08:13 Temperature 99.0 F Pulse Rate 82 Respiratory 16 Rate Blood Pressure 113/77 O2 Sat by Pulse 97 Oximetry ED Medical Decision Making - Lab Data Result diagrams: 07/28/17 13:55 07/28/17 13:55 - Radiology Data Radiology results: image reviewed interpreted by me: Abdominal x-ray shows nonspecific nonobstructive bowel gas. - Medical Decision Making Patient presents with nausea, vomiting, diarrhea and upper abdominal pain and has a history of chronic pancreatitis, IBS and chronic pain issues. Labs were unremarkable including a lipase of 55. Abdominal x-ray did not show any acute process. The patient was given 2 doses of pain medication, nausea meds upon reevaluation she is feeling much better. Prior to administering these medications I spoke with the patient as they are listed as allergies but she had said she can take them as long as they go along with Benadryl, which was given. The patient has good follow-up with gastroenterology and has been encouraged to follow up with Dr. Conway. She will return to the emergency department with any intractable vomiting, worsening of her symptoms or any acute distress. All of the labs and imaging results were discussed with the patient and she understands and agrees the plan. - Differential Diagnosis gastroenteritis, gastroparesis, pancreatitis, gastritis, cholelithiasis Critical Care Time: No Critical care attestation.: If time is entered above; I have spent that time in minutes in the direct care of this critically ill patient, excluding procedure time. ED Disposition Clinical Impression: Vomiting and diarrhea Vomiting Qualifiers: Vomiting type: unspecified Vomiting Intractability: non-intractable Nausea presence: with nausea Qualified Code(s): R11.2 - Nausea with vomiting, unspecified Abdominal pain Qualifiers: Abdominal location: unspecified location Qualified Code(s): R10.9 - Unspecified abdominal pain Disposition: TO HOME OR SELFCARE Is pt being admited?: No Condition: Stable Instructions: Acute Nausea and Vomiting (ED), Acute Diarrhea (ED), Abdominal Pain (ED) Additional Instructions: Please follow up with a primary care physician and your manager market research. Return to the emergency Department with any worsening of your symptoms or any acute distress. You have been prescribed a medication that is sedating and therefore should not be taken prior to driving, working, and responsible for children and in no way should be mixed with alcohol of any quantity. Prescriptions: oxyCODONE /ACETAMINOPHEN [Percocet 5/325] 1 tab PO Q6HR PRN #10 tablet PRN Reason: Pain Promethazine [Phenergan SUPPOS] 25 mg MT Q8H PRN #8 supp.rect PRN Reason: Nausea Referrals: PRIMARY CAREMD [Primary Care Provider] - 3-5 Days DEBO CONWAY MD [Staff Physician] - 3-5 Days [facility] [Outside] - 3-5 Days Time of Disposition: 15:52
[2017-07-28 14:59] LABS: Basophils % (Auto) 0.6 % (0.0-1.8); Hematocrit 32.2 % (30.3-42.9); Hemoglobin 10.5 gm/dl (10.1-14.3); Lymphocytes # (Auto) 1.8 K/mm3 (1.2-5.4); Lymphocytes % (Auto) 44.9 % (13.4-35.0); Mean Corpuscular HGB Conc 33 % (30-34); Mean Corpuscular Hemoglobin 26 pg (28-32); Mean Corpuscular Volume 81 fl (79-97); Monocytes # (Auto) 0.4 K/mm3 (0.0-0.8); Platelet Count 184 K/mm3 (140-440); Red Blood Count 3.98 M/mm3 (3.65-5.03); Red Cell Distribution Width 15.8 % (13.2-15.2)
[2017-07-28 15:16] LABS: Alanine Aminotransferase 8 units/L (7-56); Albumin 4.1 g/dL (3.9-5); BUN/Creatinine Ratio 12; Blood Urea Nitrogen 7 mg/dL (7-17); Calcium 8.5 mg/dL (8.4-10.2); Hemolysis Index 0
--- NOTE | 2017-07-28 15:53 | XRay Report ---
SUPINE KUB: Pain. The abdominal gas pattern is unremarkable. No masses or organomegaly is identified and there is no gross evidence of free air or fluid. No significant soft tissue calcifications are noted. IMPRESSION: Normal study.
[2017-07-28 15:57] LABS: Bacteria,Urine 1+ /HPF (Negative); Bilirubin,Urine NEG (Negative); Blood,Urine SM (Negative); Color,Urine Yellow (Yellow); Mucus,Urine FEW /HPF; Protein,Urine <15 mg/dL mg/dL (Negative); Urobilinogen,Urine < 2.0 mg/dL (<2.0)
== END 2017-07-28 17:02 | disposition home or self-care (01) ==
LOC: ED 08:03
DX: R11.2 Nausea with vomiting, unspecified (principal); R19.7 Diarrhea, unspecified; R10.10 Upper abdominal pain, unspecified; I10 Essential (primary) hypertension; K21.9 Gastro-esophageal reflux disease without esophagitis
CPT/HCPCS: 36415; 74019; 80053; 81001; 83690; 85025; 96374; 96375; 96376; 99284; J1200; J2270; J2405

== ENCOUNTER 2017-08-12 06:38 | Emergency (ER) | payer OTHER ==
[2017-08-12 09:21] LABS: Bacteria,Urine 1+ /HPF (Negative); Bilirubin,Urine NEG (Negative); Blood,Urine SM (Negative); Color,Urine Straw (Yellow); Protein,Urine <15 mg/dL mg/dL (Negative); Urobilinogen,Urine < 2.0 mg/dL (<2.0)
--- NOTE | 2017-08-12 10:39 | Emergency Department Report ---
ED Female HPI - General Chief complaint: Abdominal Pain Stated complaint: ABD PAIN; N/V/D Time Seen by Provider: 08/12/17 09:34 Source: patient Mode of arrival: Ambulatory Limitations: No Limitations - History of Present Illness Initial comments: Patient was instructed by her GI doctor, Dr. Villegas, who she saw earlier in the week. He had instructed her to come a few days ago for fluids and to reassess her Lipase level, because it was 170 earlier this week. -: Gradual, days(s) (2 ) Radiation: LLQ, L flank, R flank Severity: moderate Severity scale (0 -10): 5 Quality: sharp, stabbing Consistency: constant Improves with: none Worsens with: movement Are you Now?: No - Related Data Sexually active: Yes Home Medications Medication Instructions Recorded Confirmed Last Taken Estrogen,Pam/Me-Testosterone 1 each PO DAILY 07/16/17 07/16/17 Unknown [Estrogen-Methyltestos F.s. Tab] Previous Rx's Medication Instructions Recorded Last Taken Type Naproxen 250 mg PO Q12HR PRN #15 tablet 07/16/17 Unknown Rx Promethazine [Phenergan TAB] 25 mg PO Q6HR PRN #10 tab 07/16/17 Unknown Rx Promethazine [Phenergan SUPPOS] 25 mg [place] Q8H PRN #8 supp.rect 07/28/17 Unknown Rx oxyCODONE /ACETAMINOPHEN [Percocet 1 tab PO Q6HR PRN #10 tablet 07/28/17 Unknown Rx 5/325] Naproxen Sodium [Anaprox Ds] 550 mg PO BID #14 tablet 08/12/17 Unknown Rx Promethazine [Phenergan TAB] 25 mg PO Q6HR PRN #10 tab 08/12/17 Unknown Rx Allergies Allergy/AdvReac Type Severity Reaction Status Date / Time codeine Allergy Itching Verified 12/24/16 08:17 fentanyl Allergy Hives Verified 12/24/16 08:17 ketorolac tromethamine Allergy Itching Verified 12/24/16 08:17 [From Toradol] metoclopramide HCl Allergy Hives Verified 12/24/16 08:17 [From Reglan] morphine Allergy Hives Verified 12/24/16 08:17 ondansetron HCl [From Zofran] Allergy Hives Verified 08/19/17 08:17 prochlorperazine edisylate Allergy Hives Verified 12/24/16 08:17 [From Compazine] prochlorperazine maleate Allergy Hives Verified 12/24/16 08:17 [From Compazine] ED Review of Systems ROS: Stated complaint: ABD PAIN; N/V/D Other details as noted in HPI Constitutional: denies: chills, fever Eyes: denies: eye pain, eye discharge, vision change ENT: denies: ear pain, throat pain Respiratory: denies: cough, shortness of breath, wheezing Cardiovascular: denies: chest pain, palpitations Endocrine: no symptoms reported Gastrointestinal: abdominal pain. denies: nausea, diarrhea Genitourinary: denies: urgency, dysuria, discharge Musculoskeletal: other (Right and Left Flank Pain). denies: back pain, joint swelling, arthralgia Skin: denies: rash, lesions Neurological: denies: headache, weakness, paresthesias Psychiatric: denies: anxiety, depression Hematological/Lymphatic: denies: easy bleeding, easy bruising ED Past Medical Hx - Past Medical History Hx Hypertension: Yes Hx CVA: No Hx Heart Attack/AMI: No Hx Congestive Heart Failure: No Hx Diabetes: No Hx Deep Vein Thrombosis: No Hx Pulmonary Embolism: No Hx GERD: Yes (Gastroparesis) Hx Liver Disease: No Hx Renal Disease: Yes (renal failure- now in remission) Hx Sickle Cell Disease: No Hx Arthritis: No Hx Headaches / Migraines: No Hx Seizures: No Hx Kidney Stones: Yes Hx Psychiatric Treatment: No Hx Asthma: Yes Hx COPD: No Hx Tuberculosis: No Hx Dementia: No Hx HIV: No Additional medical history: ovarian/lung ca, gastroparesis, IBS, chronic pancreatitis, anemia. (LYMPHOMA LUNG), pyelonephritis, herpes. PORT RIGHT CHEST - Surgical History Hx Coronary Stent: No Hx Open Heart Surgery: No Hx Pacemaker: No Hx Internal Defibrillator: No Hx Cholecystectomy: Yes Hx Appendectomy: No Hx Breast Surgery: No Additional Surgical History: fistula repair, lower bowel dissection, stents (in/ out), hysterectomy. Power port - Social History Smoking Status: Never Smoker Substance Use Type: None - Medications Home Medications: Home Medications Medication Instructions Recorded Confirmed Last Taken Type Estrogen,Pam/Me-Testosterone 1 each PO DAILY 07/16/17 07/16/17 Unknown History [Estrogen-Methyltestos F.s. Tab] Naproxen 250 mg PO Q12HR PRN #15 tablet 07/16/17 Unknown Rx Promethazine [Phenergan TAB] 25 mg PO Q6HR PRN #10 tab 07/16/17 Unknown Rx Promethazine [Phenergan SUPPOS] 25 mg [place] Q8H PRN #8 supp.rect 07/28/17 Unknown Rx oxyCODONE /ACETAMINOPHEN [Percocet 1 tab PO Q6HR PRN #10 tablet 07/28/17 Unknown Rx 5/325] Naproxen Sodium [Anaprox Ds] 550 mg PO BID #14 tablet 08/12/17 Unknown Rx Promethazine [Phenergan TAB] 25 mg PO Q6HR PRN #10 tab 08/12/17 Unknown Rx ED Physical Exam - General Limitations: No Limitations General appearance: alert, in no apparent distress - Head Head exam: Present: atraumatic, normocephalic - Neck Neck exam: Present: normal inspection - Cardiovascular Cardiovascular Exam: Present: regular rate, normal rhythm. Absent: systolic murmur, diastolic murmur, rubs, gallop - GI/Abdominal GI/Abdominal exam: Present: soft, tenderness (RUQ, LUQ and LLQ), normal bowel sounds. Absent: distended - Back Exam Back exam: Present: full ROM, CVA tenderness (R), CVA tenderness (L) - Neurological Exam Neurological exam: Present: alert, oriented X3 - Psychiatric Psychiatric exam: Present: normal affect, normal mood ED Course Vital Signs 08/12/17 08/12/17 08/12/17 07:17 08:32 08:33 Temperature 98.6 F 99.1 F Pulse Rate 88 89 Respiratory 16 16 Rate Blood Pressure 115/85 Blood Pressure 115/86 [Right] O2 Sat by Pulse 98 98 98 Oximetry 08/12/17 08/12/17 08/12/17 08:45 09:00 09:15 Temperature Pulse Rate Respiratory Rate Blood Pressure 106/80 105/75 109/59 Blood Pressure [Right] O2 Sat by Pulse 97 Oximetry 08/12/17 08/12/17 08/12/17 09:30 09:45 10:01 Temperature Pulse Rate Respiratory Rate Blood Pressure 108/64 116/73 107/75 Blood Pressure [Right] O2 Sat by Pulse Oximetry 08/12/17 08/12/17 08/12/17 10:15 10:30 10:45 Temperature Pulse Rate Respiratory Rate Blood Pressure 129/87 132/88 116/89 Blood Pressure [Right] O2 Sat by Pulse Oximetry 08/12/17 08/12/17 11:00 11:13 Temperature Pulse Rate Respiratory 16 Rate Blood Pressure 129/80 Blood Pressure [Right] O2 Sat by Pulse Oximetry - Reevaluation(s) Reevaluation #1: 08/12/17 12:08 Patient's pain has improved. ED Medical Decision Making - Lab Data Result diagrams: 08/12/17 10:34 08/12/17 10:34 - Medical Decision Making Discussed improved Lipase level with patient, along with other lab results. Will prescribe Anaprox and Phenergan. Patient to follow up with GI in two days. - Differential Diagnosis Pancreatitis; Biliary Disease; cholelithiasis Critical care attestation.: If time is entered above; I have spent that time in minutes in the direct care of this critically ill patient, excluding procedure time. ED Disposition Clinical Impression: Abdominal pain, Gallbladder calculus Disposition: - TO HOME OR SELFCARE Is pt being admited?: No Does the pt Need Aspirin: No Condition: Stable Instructions: Abdominal Pain (ED) Prescriptions: Naproxen Sodium [Anaprox Ds] 550 mg PO BID #14 tablet Promethazine [Phenergan TAB] 25 mg PO Q6HR PRN #10 tab PRN Reason: Nausea Referrals: PRIMARY CARE, [Primary Care Provider] - 3-5 Days Time of Disposition: 12:16
[2017-08-12] MEDS ORDERED: DILAUDID IV ONE ×2 (10:42→11:00)
[2017-08-12] MEDS ORDERED: NACL 0.9% 500 ML 500 ML IV ONE (10:42)
[2017-08-12] MEDS ORDERED: BENADRYL IV ONE (10:44)
[2017-08-12 10:56] LABS: Basophils % (Auto) 0.7 % (0.0-1.8); Eosinophils # (Auto) 0.1 K/mm3 (0.0-0.4); Hematocrit 32.7 % (30.3-42.9); Hemoglobin 10.3 gm/dl (10.1-14.3); Lymphocytes # (Auto) 1.9 K/mm3 (1.2-5.4); Lymphocytes % (Auto) 33.2 % (13.4-35.0); Mean Corpuscular HGB Conc 32 % (30-34); Mean Corpuscular Hemoglobin 26 pg (28-32); Mean Corpuscular Volume 82 fl (79-97); Monocytes # (Auto) 0.4 K/mm3 (0.0-0.8); Platelet Count 263 K/mm3 (140-440); Red Blood Count 3.98 M/mm3 (3.65-5.03); Red Cell Distribution Width 16.8 % (13.2-15.2)
[2017-08-12 11:03] LABS: Alanine Aminotransferase 48 units/L (7-56); Albumin 4.1 g/dL (3.9-5); BUN/Creatinine Ratio 20; Blood Urea Nitrogen 12 mg/dL (7-17); Calcium 7.5 mg/dL (8.4-10.2); Hemolysis Index 3; Lipase 154 units/L (13-60)
[2017-08-12] MEDS ORDERED: FLUSH HEPARIN IV ONE (12:34)
[2017-08-12 12:56] VITALS: BP 121/85
== END 2017-08-12 12:56 | disposition home or self-care (01) ==
LOC: ED 06:38
DX: K80.20 Calculus of gallbladder without cholecystitis without obstruction (principal); I10 Essential (primary) hypertension; K21.9 Gastro-esophageal reflux disease without esophagitis; J45.909 Unspecified asthma, uncomplicated; Z87.442 Personal history of urinary calculi; Z90.49 Acquired absence of other specified parts of digestive tract; Z88.6 Allergy status to analgesic agent; Z88.8 Allergy status to other drugs, medicaments and biological substances
CPT/HCPCS: 36415; 80053; 81001; 83690; 85025; 96374; 96375; 99283; J1170; J1200; J1642; J7040

== ENCOUNTER 2017-08-28 07:38 | Emergency (ER) | payer OTHER ==
[2017-08-28] MEDS ORDERED: CATAPRES PO ONE (08:03)
[2017-08-28] MEDS ORDERED: CATAPRES ONE (10:38)
[2017-08-28] MEDS ORDERED: MORPHINE IV PRN (10:54)
[2017-08-28] MEDS ORDERED: ZOFRAN IV ONE (10:56)
[2017-08-28] MEDS ORDERED: APRESOLINE IV ONE (10:57)
--- NOTE | 2017-08-28 10:59 | Emergency Department Report ---
Blank Doc - Documentation Documentation: Patient is 42 years old female with multiple medical problems including history of ovarian cancer and gastroparesis and high blood pressure. Patient presented to the ER complaining of intractable vomiting for the last 2-3 days patient is unable to keep anything down. Patient blood pressure was very high in the ER she was given clonidine by mouth but vomited immediately. She denied any fever , chest pain or shortness of breath. Detail the complexity of this patient and the need for further management patient will be redirected to maintain emergency department.
[2017-08-28 12:23] LABS: Bilirubin,Urine NEG (Negative); Blood,Urine NEG (Negative); Color,Urine Yellow (Yellow); Mucus,Urine FEW /HPF; Protein,Urine <15 mg/dL mg/dL (Negative); Urobilinogen,Urine < 2.0 mg/dL (<2.0); WBC,Urine < 1.0 /HPF (0.0-6.0)
[2017-08-28] MEDS ORDERED: BENADRYL IV ONE (12:45)
[2017-08-28] MEDS ORDERED: PHENERGAN PO ONE (12:51)
[2017-08-28 13:09] LABS: Basophils % (Auto) 0.4 % (0.0-1.8); Eosinophils # (Auto) 0.1 K/mm3 (0.0-0.4); Hemoglobin 10.4 gm/dl (10.1-14.3); Lymphocytes # (Auto) 2.4 K/mm3 (1.2-5.4); Lymphocytes % (Auto) 39.5 % (13.4-35.0); Mean Corpuscular HGB Conc 32 % (30-34); Mean Corpuscular Hemoglobin 26 pg (28-32); Mean Corpuscular Volume 83 fl (79-97); Monocytes # (Auto) 0.4 K/mm3 (0.0-0.8); Monocytes % (Auto) 6.8 % (0.0-7.3); Platelet Count 203 K/mm3 (140-440); Red Blood Count 3.99 M/mm3 (3.65-5.03); Red Cell Distribution Width 16.8 % (13.2-15.2)
[2017-08-28 13:32] LABS: HCG Qualitative,Urine Negative (Negative)
[2017-08-28 13:54] LABS: Alanine Aminotransferase 52 units/L (7-56); BUN/Creatinine Ratio 16; Blood Urea Nitrogen 8 mg/dL (7-17); Calcium 7.9 mg/dL (8.4-10.2); Hemolysis Index 5
[2017-08-28 14:10] VITALS: BP 120/67
--- NOTE | 2017-08-28 14:10 | Emergency Department Report ---
HPI - General Chief Complaint: Abdominal Pain Time Seen by Provider: 08/28/17 10:51 - HPI HPI: The patient is a 42-year-old female with a history of chronic pancreatitis, chronic abdominal pain, gastroparesis, recurrent nausea and vomiting, well known to this emergency department, and who presents for evaluation recurrence of abdominal pain and vomiting. The patient reports constant severe 10 out of 10 right-sided abdominal pain, sharp in quality, exacerbated with vomiting, and associated with nausea and multiple episodes of nonbilious, nonbloody emesis. She states that her nausea and vomiting is consistent with previous episodes. The patient denies fever, cp, dyspnea, diarrhea, blood in the stool, dark tarry stool, dysuria, hematuria. ED Past Medical Hx - Past Medical History Hx Hypertension: Yes Hx CVA: No Hx Heart Attack/AMI: No Hx Congestive Heart Failure: No Hx Diabetes: No Hx Deep Vein Thrombosis: No Hx Pulmonary Embolism: No Hx GERD: Yes (Gastroparesis) Hx Liver Disease: No Hx Renal Disease: Yes (renal failure- now in remission) Hx Sickle Cell Disease: No Hx Arthritis: No Hx Headaches / Migraines: No Hx Seizures: No Hx Kidney Stones: Yes Hx Psychiatric Treatment: No Hx Asthma: Yes Hx COPD: No Hx Tuberculosis: No Hx Dementia: No Hx HIV: No Additional medical history: ovarian/lung ca, gastroparesis, IBS, chronic pancreatitis, anemia. (LYMPHOMA LUNG), pyelonephritis, herpes. PORT RIGHT CHEST - Surgical History Hx Coronary Stent: No Hx Open Heart Surgery: No Hx Pacemaker: No Hx Internal Defibrillator: No Hx Cholecystectomy: Yes Hx Appendectomy: No Hx Breast Surgery: No Additional Surgical History: fistula repair, lower bowel dissection, stents (in/ out), hysterectomy. Power port - Social History Smoking Status: Current Every Day Smoker Substance Use Type: None - Medications Home Medications: Home Medications Medication Instructions Recorded Confirmed Last Taken Type Estrogen,Pam/Me-Testosterone 1 each PO DAILY 07/16/17 07/16/17 Unknown History [Estrogen-Methyltestos F.s. Tab] Naproxen 250 mg PO Q12HR PRN #15 tablet 07/16/17 Unknown Rx Promethazine [Phenergan TAB] 25 mg PO Q6HR PRN #10 tab 07/16/17 Unknown Rx Promethazine [Phenergan SUPPOS] 25 mg [place] Q8H PRN #8 supp.rect 07/28/17 Unknown Rx oxyCODONE /ACETAMINOPHEN [Percocet 1 tab PO Q6HR PRN #10 tablet 07/28/17 Unknown Rx 5/325] Naproxen Sodium [Anaprox Ds] 550 mg PO BID #14 tablet 08/12/17 Unknown Rx Promethazine [Phenergan TAB] 25 mg PO Q6HR PRN #10 tab 08/28/17 Unknown Rx ED Review of Systems ROS: Stated complaint: NAUSEA/VOMITING/ABDOMINAL/BACK PAIN Other details as noted in HPI Constitutional: denies: fever ENT: denies: throat or neck pain Respiratory: denies: cough, shortness of breath Cardiovascular: denies: chest pain Endocrine: denies unexplained weight loss or gain Gastrointestinal: reports abdominal pain, nausea Genitourinary: denies: dysuria Musculoskeletal: denies: leg swelling Skin: denies: rash Neurological: denies: headache Hematological/Lymphatic: denies: easy bleeding or easy bruising Psych: denies sadness or hopelessness Physical Exam - Physical Exam Vital Signs: Vital Signs 08/28/17 08/28/17 07:58 13:05 Temperature 99.1 F Pulse Rate 88 89 Respiratory 18 18 Rate Blood Pressure 221/169 Blood Pressure 137/93 [Left] O2 Sat by Pulse 97 100 Oximetry Physical Exam: General: well-nourished, well-developed, no acute distress Head: Normocephalic, atraumatic Eyes: normal sclera ENT: Mucous membranes are pink and moist Neck: trachea midline, neck supple, No neck stiffness, no cervical adenopathy Respiratory: Breath sounds equal bilaterally, no wheezing, rales, or rhonchi Cardio: S1 and S2 present, no murmurs, rubs, gallops, capillary refill is brisk Abdomen: Normoactive bowel sounds, soft abdomen, right upper quadrant and right lower quadrant tenderness to palpation present, no rigidity, no guarding or rebound tenderness Chest WALL/Back: No tenderness to palpation of the chest wall, no CVA tenderness with percussion Musc: No pitting edema Skin: No rash Neuro: no facial drooping, normal speech Psych: Normal affect ED Course Vital Signs 08/28/17 08/28/17 07:58 13:05 Temperature 99.1 F Pulse Rate 88 89 Respiratory 18 18 Rate Blood Pressure 221/169 Blood Pressure 137/93 [Left] O2 Sat by Pulse 97 100 Oximetry ED Medical Decision Making - Lab Data Result diagrams: 08/28/17 12:34 08/28/17 12:34 - Medical Decision Making The patient was seen and examined by myself. The patient is placed on a cardiac rehab nurse and continuous pulse ox. On initial evaluation, the patient was found to be in no distress. Evaluation orders are placed. IV access is established and the patient is given IV morphine for pain. Follow this as an allergy, the patient submitted that she has no allergic reaction to morphine when given with Benadryl. Lab results revealed mildly positive lipase level in the 90s, consistent with long-standing history of chronic pancreatitis, and otherwise labs were non- concerning including WBC, hemoglobin, hematocrit, electrolytes, renal function, LFTs, urinalysis, and neg preg test. Medical records are reviewed and revealed that the patient was found on multiple previous evaluations have elevated lipase level, at a baseline of 100-150. As her lipase level is at her baseline , and that she has normal LFTs, WBC, and vital signs, severe or emergent pancreatitis is not suspected at this time. The patient was reevaluated and reported that their symptoms were markedly improved but persisted. She requests a prescription for Percocet. A BAR FINISH OPERATOR service was performed and the patient was found to have filled prescriptions for Percocet and hydrocodone from 3 different emergency room physicians within the past 3 weeks, highly concerning for narcotic abusing behavior. Additionally she filled a prescription for hydrocodone 5 days ago from an emergency room visit at [facility]. As such, the patient will not be prescribed narcotic pain medicine, and she is informed to have her pain managed by one physician. The patient is stable for discharge with outpatient follow-up. The patient is given follow-up and return instructions. The patient expressed understanding and agreed with the plan. The patient is discharged in stable condition. Critical care attestation.: If time is entered above; I have spent that time in minutes in the direct care of this critically ill patient, excluding procedure time. ED Disposition Clinical Impression: Acute abdominal pain in right upper quadrant, Nausea and vomiting in adult Chronic pancreatitis Qualifiers: Pancreatitis type: unspecified pancreatitis type Qualified Code(s): K86.1 - Other chronic pancreatitis Disposition: - TO HOME OR SELFCARE Is pt being admited?: No Does the pt Need Aspirin: No Condition: Stable Instructions: Acute Nausea and Vomiting (ED), Abdominal Pain (ED) Prescriptions: Promethazine [Phenergan TAB] 25 mg PO Q6HR PRN #10 tab PRN Reason: Nausea Referrals: PRIMARY CARE, [Primary Care Provider] - 3-5 Days Time of Disposition: 14:04
[2017-08-28] MEDS ORDERED: FLUSH HEPARIN IV ONE (14:23)
[2017-08-28 14:45] LABS: Albumin 4.1 g/dL (3.9-5)
== END 2017-08-28 15:13 | disposition home or self-care (01) ==
LOC: ED 07:38
DX: K86.1 Other chronic pancreatitis (principal); I10 Essential (primary) hypertension; K21.9 Gastro-esophageal reflux disease without esophagitis; F17.200 Nicotine dependence, unspecified, uncomplicated
CPT/HCPCS: 36415; 80053; 81001; 81025; 83690; 85025; 96374; 96375; 99284; J1200; J1642; J2270; J2405; Q0169

== ENCOUNTER 2017-09-19 04:10 | Emergency (ER) | payer OTHER ==
[2017-09-19 08:41] LABS: Eosinophils # (Auto) 0.1 K/mm3 (0.0-0.4); Eosinophils % (Auto) 1.4 % (0.0-4.3); Hematocrit 31.6 % (30.3-42.9); Hemoglobin 10.4 gm/dl (10.1-14.3); Lymphocytes # (Auto) 1.6 K/mm3 (1.2-5.4); Lymphocytes % (Auto) 44.2 % (13.4-35.0); Mean Corpuscular HGB Conc 33 % (30-34); Mean Corpuscular Hemoglobin 27 pg (28-32); Mean Corpuscular Volume 81 fl (79-97); Monocytes # (Auto) 0.3 K/mm3 (0.0-0.8); Monocytes % (Auto) 7.2 % (0.0-7.3); Platelet Count 229 K/mm3 (140-440); Red Blood Count 3.89 M/mm3 (3.65-5.03); Red Cell Distribution Width 16.3 % (13.2-15.2)
[2017-09-19 09:03] LABS: Alanine Aminotransferase 30 units/L (7-56); Albumin 4.4 g/dL (3.9-5); BUN/Creatinine Ratio 15; Blood Urea Nitrogen 9 mg/dL (7-17); Calcium 8.4 mg/dL (8.4-10.2); Hemolysis Index 3
[2017-09-19] MEDS ORDERED: ZOFRAN IV ONE (09:52)
[2017-09-19] MEDS ORDERED: DILAUDID IM ONE (09:52)
[2017-09-19] MEDS ORDERED: NACL 0.9% 1000 ML 1,000 ML IV ONE (09:52)
[2017-09-19] MEDS ORDERED: BENADRYL IV ONE (09:53)
[2017-09-19 11:43] VITALS: BP 133/65
[2017-09-19] MEDS ORDERED: DILAUDID IV ONE (12:00)
--- NOTE | 2017-09-19 12:30 | Emergency Department Report ---
ED N/V/D HPI - General Chief complaint: Abdominal Pain Stated complaint: ABD PAIN; H/A Time Seen by Provider: 09/19/17 09:50 Source: patient Mode of arrival: Ambulatory Limitations: No Limitations - History of Present Illness Initial comments: Patient with repeated nausea and vomiting, inability to take her routine medications, as well as any solid foods or even liquids over the past couple days, with a two-week history of preceding progressive abdominal discomfort, which she relates to having taken antibiotics over the preceding week or so, which caused significant abdominal discomfort as well as diarrhea, and she believes this has aggravated her chronic pancreatitis also.. Patient has a complicated medical history, primarily stemming from ovarian cancer surgery in 2011, with secondary complications of intestinal fistula, and also secondary pancreatitis as a result of injury to the pancreas during that time, requiring multiple additional surgeries, including gangrenous gallbladder, surgical repair of fistula, and ovarian cancer surgeries. Patient has had no success with decreasing fluids, and try oral rehydration, and comes for further care as she is having increasing pain, as well as increasing weakness secondary to dehydration. MD complaint: nausea, vomiting -: Gradual, days(s) (7-10 days, worsened past 2 days) Description of Vomiting: watery Description of Diarrhea: water Associated Abdominal Pain: Yes Location: LUQ, epigastric Radiation: none Severity: severe Pain Scale: 9 Quality: cramping, aching, constant Consistency: constant Improves with: none Worsens with: none, eating, vomiting Context: recent anitbiotic use (cephalexin) Associated Symptoms: denies: chest pain, diaphoresis, fever/chills - Related Data Home Medications Medication Instructions Recorded Confirmed Last Taken Estrogen,Pam/Me-Testosterone 1 each PO DAILY 07/16/17 07/16/17 Unknown [Estrogen-Methyltestos F.s. Tab] Previous Rx's Medication Instructions Recorded Last Taken Type Naproxen 250 mg PO Q12HR PRN #15 tablet 07/16/17 Unknown Rx Promethazine [Phenergan TAB] 25 mg PO Q6HR PRN #10 tab 07/16/17 Unknown Rx Promethazine [Phenergan SUPPOS] 25 mg [place] Q8H PRN #8 supp.rect 07/28/17 Unknown Rx Naproxen Sodium [Anaprox Ds] 550 mg PO BID #14 tablet 08/12/17 Unknown Rx Promethazine [Phenergan TAB] 25 mg PO Q6HR PRN #10 tab 09/19/17 Unknown Rx oxyCODONE /ACETAMINOPHEN [Percocet 0.5 - 1 tab PO Q6HR PRN #20 tablet 09/19/17 Unknown Rx 5/325 mg] Allergies Allergy/AdvReac Type Severity Reaction Status Date / Time codeine Allergy Itching Verified 12/24/16 08:17 fentanyl Allergy Hives Verified 12/24/16 08:17 ketorolac tromethamine Allergy Itching Verified 12/24/16 08:17 [From Toradol] metoclopramide HCl Allergy Hives Verified 12/24/16 08:17 [From Reglan] morphine Allergy Hives Verified 12/24/16 08:17 ondansetron HCl [From Zofran] Allergy Hives Verified 12/24/16 08:17 prochlorperazine edisylate Allergy Hives Verified 12/24/16 08:17 [From Compazine] prochlorperazine maleate Allergy Hives Verified 12/24/16 08:17 [From Compazine] ED Review of Systems ROS: Stated complaint: ABD PAIN; H/A Other details as noted in HPI Constitutional: malaise, weakness. denies: chills, diaphoresis, fever Eyes: denies: eye pain, eye discharge, vision change ENT: denies: ear pain, throat pain Respiratory: denies: cough, shortness of breath, wheezing Cardiovascular: denies: chest pain, palpitations Endocrine: no symptoms reported Gastrointestinal: abdominal pain, nausea, vomiting, diarrhea. denies: constipation, hematemesis, hematochezia Genitourinary: denies: urgency, dysuria Musculoskeletal: denies: back pain Skin: denies: rash, lesions Neurological: denies: headache, weakness, numbness, paresthesias Psychiatric: denies: anxiety, depression Hematological/Lymphatic: denies: easy bleeding, easy bruising ED Past Medical Hx - Past Medical History Previous Medical History?: Yes Hx Hypertension: Yes Hx CVA: No Hx Heart Attack/AMI: No Hx Congestive Heart Failure: No Hx Diabetes: No Hx Deep Vein Thrombosis: No Hx Pulmonary Embolism: No Hx GERD: Yes (Gastroparesis) Hx Liver Disease: No Hx Renal Disease: Yes (renal failure- now in remission) Hx of Cancer: Yes (ovarian cancer, 2012) Hx Sickle Cell Disease: No Hx Arthritis: No Hx Headaches / Migraines: No Hx Seizures: No Hx Kidney Stones: Yes Hx Psychiatric Treatment: No Hx Asthma: Yes Hx COPD: No Hx Tuberculosis: No Hx Dementia: No Hx HIV: No Additional medical history: ovarian/lung ca, gastroparesis, IBS, chronic pancreatitis, anemia. (LYMPHOMA LUNG), pyelonephritis, herpes. PORT RIGHT CHEST - Surgical History Past Surgical History?: Yes Hx Coronary Stent: No Hx Open Heart Surgery: No Hx Pacemaker: No Hx Internal Defibrillator: No Hx Cholecystectomy: Yes Hx Appendectomy: No Hx Breast Surgery: No Additional Surgical History: fistula repair, lower bowel dissection, stents (in/ out), hysterectomy. Power port - Social History Smoking Status: Never Smoker Substance Use Type: None - Medications Home Medications: Home Medications Medication Instructions Recorded Confirmed Last Taken Type Estrogen,Pam/Me-Testosterone 1 each PO DAILY 07/16/17 07/16/17 Unknown History [Estrogen-Methyltestos F.s. Tab] Naproxen 250 mg PO Q12HR PRN #15 tablet 07/16/17 Unknown Rx Promethazine [Phenergan TAB] 25 mg PO Q6HR PRN #10 tab 07/16/17 Unknown Rx Promethazine [Phenergan SUPPOS] 25 mg [place] Q8H PRN #8 supp.rect 07/28/17 Unknown Rx Naproxen Sodium [Anaprox Ds] 550 mg PO BID #14 tablet 08/12/17 Unknown Rx Promethazine [Phenergan TAB] 25 mg PO Q6HR PRN #10 tab 09/19/17 Unknown Rx oxyCODONE /ACETAMINOPHEN [Percocet 0.5 - 1 tab PO Q6HR PRN #20 tablet 09/19/17 Unknown Rx 5/325 mg] ED Physical Exam - General Limitations: No Limitations General appearance: in distress (uncomfortable, secondary to abdominal distress , tearful) - Head Head exam: Present: atraumatic - Eye Eye exam: Present: PERRL - ENT ENT exam: Present: mucous membranes dry - Neck Neck exam: Present: normal inspection - Respiratory Respiratory exam: Present: normal lung sounds bilaterally. Absent: chest wall tenderness - Cardiovascular Cardiovascular Exam: Present: regular rate, normal rhythm - GI/Abdominal GI/Abdominal exam: Present: soft, tenderness ([id number] tenderness of her abdomen, predominantly in the epigastrium and left upper quadrant), normal bowel sounds. Absent: guarding, rebound, rigid - Extremities Exam Extremities exam: Present: normal inspection - Back Exam Back exam: Present: normal inspection - Neurological Exam Neurological exam: Present: alert, oriented X3 - Psychiatric Psychiatric exam: Present: normal affect, normal mood - Skin Skin exam: Present: warm, dry, intact, normal color. Absent: rash ED Course Vital Signs 09/19/17 09/19/17 09/19/17 04:16 08:27 11:41 Temperature 98.6 F 98.0 F Pulse Rate 95 H 88 Respiratory 17 16 16 Rate Blood Pressure 105/79 Blood Pressure 133/65 [Left] O2 Sat by Pulse 99 98 99 Oximetry - Reevaluation(s) Reevaluation #1: 09/19/17 12:32 Patient medicated with morphine, reporting that she can take it with Benadryl, which was administered, but this gave inadequate pain relief, and patient was remedicated with ondansetron, and IV fluid rehydration head been ongoing previously. Reevaluation #2: 09/19/17 12:32 Patient much more improved on recheck at 1215 hrs., feels much better, with rehydration, and pain is improved with Dilaudid, and reports that she gets good relief with oral hydrocodone, but will recommend low dose, because she feels that she gets too sedated with the high dose of pain medication. We will treat her with midrange hydrocodone, 5 mg, as well as ondansetron for nausea. ED Medical Decision Making - Lab Data Result diagrams: 09/19/17 08:25 09/19/17 08:25 - Medical Decision Making Patient is significantly improved after rehydration, and adequate pain relief with hydromorphone. She prefers to go home, we'll treat the remainder of her discomfort with oral medication and oral antiemetics. She requests low dose of narcotics, reporting that the hard doses makes her feel too uncomfortable and confused. We will treat with midrange hydrocodone, as well as ondansetron, recommend oral antacids, as well as bowel rest with primarily liquid rehydration. She should have 3-4 day follow-up with her physician. - Differential Diagnosis acute exacerbation of pancreatitis, gastroenteritis, colitis Critical Care Time: No Critical care attestation.: If time is entered above; I have spent that time in minutes in the direct care of this critically ill patient, excluding procedure time. ED Disposition Clinical Impression: Dehydration, Nausea vomiting and diarrhea, Vomiting and diarrhea Pancreatitis, chronic Qualifiers: Pancreatitis type: other Qualified Code(s): K86.1 - Other chronic pancreatitis Disposition: - TO HOME OR SELFCARE Is pt being admited?: No Does the pt Need Aspirin: No Condition: Stable Instructions: Abdominal Pain (ED) Prescriptions: oxyCODONE /ACETAMINOPHEN [Percocet 5/325 mg] 0.5 - 1 tab PO Q6HR PRN #20 tablet PRN Reason: Pain Promethazine [Phenergan TAB] 25 mg PO Q6HR PRN #10 tab PRN Reason: Nausea Referrals: BECKI BROWN MD [Primary Care Provider] - 3-5 Days Time of Disposition: 12:36
[2017-09-19] MEDS ORDERED: FLUSH HEPARIN IV ONE ×2 (12:43→12:52)
== END 2017-09-19 12:54 | disposition home or self-care (01) ==
LOC: ED 04:10
DX: E86.0 Dehydration (principal); K86.1 Other chronic pancreatitis; I10 Essential (primary) hypertension; K21.9 Gastro-esophageal reflux disease without esophagitis; J45.909 Unspecified asthma, uncomplicated; Z90.49 Acquired absence of other specified parts of digestive tract; Z88.5 Allergy status to narcotic agent; Z88.8 Allergy status to other drugs, medicaments and biological substances; Z90.710 Acquired absence of both cervix and uterus
CPT/HCPCS: 36415; 80053; 83690; 85025; 96361; 96372; 96374; 96375; 99283; J1170; J1200; J1642; J2405; J7030

== ENCOUNTER 2017-10-11 05:17 | Emergency (ER) | payer OTHER ==
[2017-10-11 05:56] VITALS: BP 116/85
== END 2017-10-11 07:50 ==
LOC: ED 05:17
DX: R10.9 Unspecified abdominal pain (principal); R11.2 Nausea with vomiting, unspecified; R53.1 Weakness; J45.909 Unspecified asthma, uncomplicated; K21.9 Gastro-esophageal reflux disease without esophagitis; Z88.5 Allergy status to narcotic agent; Z88.8 Allergy status to other drugs, medicaments and biological substances; Z53.21 Procedure and treatment not carried out due to patient leaving prior to being seen by health care provider

== ENCOUNTER 2017-10-19 04:08 | Emergency (ER) | payer OTHER ==
[2017-10-19 08:34] LABS: Hematocrit 32.5 % (30.3-42.9); Hemoglobin 10.6 gm/dl (10.1-14.3); Mean Corpuscular HGB Conc 33 % (30-34); Mean Corpuscular Hemoglobin 27 pg (28-32); Mean Corpuscular Volume 84 fl (79-97); Platelet Count 208 K/mm3 (140-440); Red Blood Count 3.88 M/mm3 (3.65-5.03); Red Cell Distribution Width 16.1 % (13.2-15.2)
[2017-10-19 08:48] LABS: Alanine Aminotransferase 12 units/L (7-56); Albumin 4.3 g/dL (3.9-5); BUN/Creatinine Ratio 16; Blood Urea Nitrogen 11 mg/dL (7-17); Calcium 8.7 mg/dL (8.4-10.2); Hemolysis Index 1; Lipase 77 units/L (13-60)
--- NOTE | 2017-10-19 10:08 | Emergency Department Report ---
HPI - General Chief Complaint: Abdominal Pain Time Seen by Provider: 10/19/17 09:47 - HPI HPI: Room 17 The patient is a 42-year-old female presenting with a chief complaint of abdominal pain. The patient has a history of chronic abdominal pain including chronic pancreatitis and gastroparesis. The patient states for the past week she's been suffering from a bout of her pancreatitis. The patient states she has been following up with her perl developer as an outpatient. The patient states yesterday her pain worsened and she developed nausea and vomiting. The patient thinks she may have had a subjective fever. Patient denies dysuria or hematuria. Location: Abdomen Duration: [See above] Quality: Pain Severity: Moderate Modifying factors: [see above] Context: [see above] Mode of transportation: [not driving] ED Past Medical Hx - Past Medical History Previous Medical History?: Yes Hx Hypertension: Yes Hx GERD: Yes (Gastroparesis) Hx Renal Disease: Yes (renal failure- now in remission) Hx Kidney Stones: Yes Hx Asthma: Yes Additional medical history: ovarian/lung ca, gastroparesis, IBS, chronic pancreatitis, anemia. (LYMPHOMA LUNG), pyelonephritis, herpes. PORT RIGHT CHEST - Surgical History Past Surgical History?: Yes Hx Cholecystectomy: Yes Additional Surgical History: fistula repair, lower bowel dissection, stents (in/ out), hysterectomy. Power port - Family History Family history: no significant - Social History Smoking Status: Current Some Day Smoker Substance Use Type: None, Alcohol - Medications Home Medications: Home Medications Medication Instructions Recorded Confirmed Last Taken Type Promethazine [Phenergan TAB] 25 mg PO Q6HR PRN #20 tab 10/19/17 Unknown Rx Promethazine [Phenergan] 25 mg [place] Q6HR PRN #5 supp.rect 10/19/17 Unknown Rx oxyCODONE /ACETAMINOPHEN [Percocet 1 - 2 tab PO Q6HR PRN #14 tablet 10/19/17 Unknown Rx 5/325] ED Review of Systems ROS: Stated complaint: ABD PAIN Other details as noted in HPI Constitutional: fever (subjective) Eyes: denies: eye pain ENT: denies: throat pain Cardiovascular: denies: chest pain Gastrointestinal: abdominal pain, nausea, vomiting Genitourinary: denies: dysuria Musculoskeletal: back pain Neurological: denies: headache Physical Exam - Physical Exam Vital Signs: Vital Signs 10/19/17 04:33 Temperature 98.2 F Pulse Rate 91 H Respiratory 16 Rate Blood Pressure 115/79 O2 Sat by Pulse 97 Oximetry Physical Exam: GENERAL: The patient is well-developed well-nourished female on a stretcher not appearing to be in acute distress. [] HEENT: Normocephalic. Atraumatic. Extraocular motions are intact. Patient has moist mucous membranes. NECK: Supple. Trachea midline CHEST/LUNGS: Clear to auscultation. There is no respiratory distress noted. HEART/CARDIOVASCULAR: Regular. There is no tachycardia. There is no gallop rub or murmur. ABDOMEN: Abdomen is soft, diffusely tender to palpation. Patient has normal bowel sounds. There is no abdominal distention. SKIN: There is no rash. There is no edema. There is no diaphoresis. NEURO: The patient is awake, alert, and oriented. The patient is cooperative. The patient has normal speech MUSCULOSKELETAL: There is no evidence of acute injury. ED Course Vital Signs 10/19/17 04:33 Temperature 98.2 F Pulse Rate 91 H Respiratory 16 Rate Blood Pressure 115/79 O2 Sat by Pulse 97 Oximetry - Consultations Consultation #1: 10/19/17 13:30 Case discussed with CIG[employer] S[employer] Dr. Jada Lowry- states there are tumors that can secrete hCG but is unlikely the patient has a history of ovarian CVA status post total hysterectomy and bilateral oophorectomy. Recommends patient follow up as an outpatient for repeat serum hCGs and potentially imaging for further evaluation ED Medical Decision Making - Lab Data Result diagrams: 10/19/17 Unknown 10/19/17 Unknown Laboratory Tests 10/19/17 10/19/17 10/19/17 Unknown Unknown Unknown WBC 3.6 L RBC 3.88 Hgb 10.6 Hct 32.5 MCV 84 MCH 27 L MCHC 33 RDW 16.1 H Plt Count 208 Add Manual Diff Complete Total Counted 100 Seg Neutrophils % [employer] Seg Neuts % (Manual) 34.0 L Band Neutrophils % 0 Lymphocytes % (Manual) 61.0 H Reactive Lymphs % (Man) 0 Monocytes % (Manual) 3.0 Eosinophils % (Manual) 1.0 Basophils % (Manual) 1.0 Metamyelocytes % 0 Myelocytes % 0 Promyelocytes % 0 Blast Cells % 0 Nucleated RBC % Not Reportable Seg Neutrophils # Man 1.2 L Band Neutrophils # 0.0 Lymphocytes # (Manual) 2.2 Abs React Lymphs (Man) 0.0 Monocytes # (Manual) 0.1 Eosinophils # (Manual) 0.0 Basophils # (Manual) 0.0 Metamyelocytes # 0.0 Myelocytes # 0.0 Promyelocytes # 0.0 Blast Cells # 0.0 WBC Morphology Not Reportable Hypersegmented Neuts Not Reportable Hyposegmented Neuts Not Reportable Hypogranular Neuts Not Reportable Smudge Cells Not Reportable Toxic Granulation Not Reportable Toxic Vacuolation Not Reportable Dohle Bodies Not Reportable Pelger-Huet Anomaly Not Reportable Andres Rods Not Reportable Platelet Estimate Cons Clumped Platelets Not Reportable Plt Clumps, EDTA Not Reportable Large Platelets Few Giant Platelets Not Reportable Platelet Satelliting Not Reportable Plt Morphology Comment Not Reportable RBC Morphology Not Reportable Dimorphic RBCs Not Reportable Polychromasia Not Reportable Hypochromasia Not Reportable Poikilocytosis 1+ Anisocytosis 1+ Microcytosis Not Reportable Macrocytosis Not Reportable Spherocytes Not Reportable Pappenheimer Bodies Not Reportable Sickle Cells Not Reportable Target Cells Not Reportable Tear Drop Cells Not Reportable Ovalocytes Few Helmet Cells Not Reportable [place] Bodies Not Reportable [place] Rings Not Reportable [place] Cells Not Reportable Bite Cells Not Reportable Crenated Cell Not Reportable Elliptocytes Few Acanthocytes (Spur) Not Reportable Rouleaux Not Reportable Hemoglobin C Crystals Not Reportable Schistocytes Not Reportable Malaria parasites Not Reportable Sadi Bodies Not Reportable Hem Pathologist Commnt No Sodium 143 Potassium 4.1 Chloride 103.8 Carbon Dioxide 27 Anion Gap 16 BUN 11 Creatinine 0.7 Estimated GFR > 60 BUN/Creatinine Ratio 16 Glucose 79 Calcium 8.7 Total Bilirubin 0.20 AST 51 H ALT 12 Alkaline Phosphatase 61 Total Protein 6.9 Albumin 4.3 Albumin/Globulin Ratio 1.7 Lipase 77 H HCG, Qual Positive HCG, Quant 18 10/19/17 Unknown Unknown WBC RBC Hgb Hct MCV MCH MCHC RDW Plt Count Add Manual Diff Total Counted Seg Neutrophils % Seg Neuts % (Manual) Band Neutrophils % Lymphocytes % (Manual) Reactive Lymphs % (Man) Monocytes % (Manual) Eosinophils % (Manual) Basophils % (Manual) Metamyelocytes % Myelocytes % Promyelocytes % Blast Cells % Nucleated RBC % Seg Neutrophils # Man Band Neutrophils # Lymphocytes # (Manual) Abs React Lymphs (Man) Monocytes # (Manual) Eosinophils # (Manual) Basophils # (Manual) Metamyelocytes # Myelocytes # Promyelocytes # Blast Cells # WBC Morphology Hypersegmented Neuts Hyposegmented Neuts Hypogranular Neuts Smudge Cells Toxic Granulation Toxic Vacuolation Dohle Bodies Pelger-Huet Anomaly Andres Rods Platelet Estimate Clumped Platelets Plt Clumps, EDTA Large Platelets Giant Platelets Platelet Satelliting Plt Morphology Comment RBC Morphology Dimorphic RBCs Polychromasia Hypochromasia Poikilocytosis Anisocytosis Microcytosis Macrocytosis Spherocytes Pappenheimer Bodies Sickle Cells Target Cells Tear Drop Cells Ovalocytes Helmet Cells Chiu-[place] Bodies [place] Rings [place] Cells Bite Cells Crenated Cell Elliptocytes Acanthocytes (Spur) Rouleaux Hemoglobin C Crystals Schistocytes Malaria parasites Sadi Bodies Hem Pathologist Commnt Sodium Potassium Chloride Carbon Dioxide Anion Gap BUN Creatinine Estimated GFR BUN/Creatinine Ratio Glucose Calcium Total Bilirubin AST ALT Alkaline Phosphatase Total Protein Albumin Albumin/Globulin Ratio Lipase HCG, Qual HCG, Quant 10.62 H 10.34 H - Radiology Data Radiology results: report reviewed (pelvic ultrasound), image reviewed (pelvic ultrasound) - Differential Diagnosis chronic pancreatitis, gastroparesis, malingering Critical care attestation.: If time is entered above; I have spent that time in minutes in the direct care of this critically ill patient, excluding procedure time. ED Disposition Clinical Impression: Acute abdominal pain, Elevated serum hCG Disposition: TO HOME OR SELFCARE Is pt being admited?: No Does the pt Need Aspirin: No Condition: Stable Instructions: Abdominal Pain (ED) Additional Instructions: Your serum hCG level was measured today at 10.62 mIu/mL and 10.34 mIu/mL. It is important that she follow-up with her calendering supervisor for further evaluation. Return to the emergency department immediately should you develop worsening symptoms, fever, inability to tolerate food or liquid or any other concerns. Prescriptions: oxyCODONE /ACETAMINOPHEN [Percocet 5/325] 1 - 2 tab PO Q6HR PRN #14 tablet PRN Reason: Pain Promethazine [Phenergan TAB] 25 mg PO Q6HR PRN #20 tab PRN Reason: Nausea Promethazine [Phenergan] 25 mg [place] Q6HR PRN #5 supp.rect PRN Reason: Vomiting Referrals: BECKI BROWN MD [Primary Care Provider] - 3-5 Days LORENZO KUMAR MD [Staff Physician] - [facility] (Please follow-up with your OB/ PACKAGING ASSEMBLER for further evaluation) Time of Disposition: 13:51
[2017-10-19 10:15] LABS: Total Cells Counted 100
[2017-10-19 10:16] LABS: Anisocytosis 1+; Large Platelets Few; Ovalocytes Few; Platelet Estimate Cons; Poikilocytosis 1+
[2017-10-19] MEDS ORDERED: ZOFRAN IV ONE (11:30)
[2017-10-19] MEDS ORDERED: DILAUDID IV ONE ×2 (11:30→13:29)
[2017-10-19] MEDS ORDERED: NACL 0.9% 1000 ML 1,000 ML IV ONE (11:30)
[2017-10-19] MEDS ORDERED: PHENERGAN PO ONE (11:40)
[2017-10-19] MEDS ORDERED: BENADRYL ONE (12:28)
[2017-10-19] MEDS ORDERED: BENADRYL IV ONE (12:29)
--- NOTE | 2017-10-19 12:46 | Ultrasound Report ---
Pelvic ultrasound: Positive hCG and abdominal pain. Transabdominal imaging only performed. Patient refused endovaginal imaging. The bladder is well distended. The uterus and ovaries are not identified by this approach. No gross evidence of a mass and no free fluid identified. Impression: Compromised exam. No pathology identified.
[2017-10-19] MEDS ORDERED: FLUSH HEPARIN IV ONE (14:14)
[2017-10-19 16:57] VITALS: BP 128/75
== END 2017-10-19 14:45 | disposition home or self-care (01) ==
LOC: ED 04:08
DX: R10.9 Unspecified abdominal pain (principal); F17.200 Nicotine dependence, unspecified, uncomplicated; I10 Essential (primary) hypertension; K21.9 Gastro-esophageal reflux disease without esophagitis
CPT/HCPCS: 36415; 76856; 80053; 83690; 84702; 84703; 85007; 85025; 96361; 96374; 96375; 96376; 99284; J1170; J1200; J7030; J1642; Q0169

== ENCOUNTER 2017-11-08 04:54 | Emergency (ER) | payer MEDICAID, OTHER ==
[2017-11-08] MEDS ORDERED: NACL 0.9% 1000 ML 1,000 ML IV ONE (05:14)
[2017-11-08 08:20] LABS: Bilirubin,Urine NEG (Negative); Blood,Urine NEG (Negative); Color,Urine Yellow (Yellow); Protein,Urine <15 mg/dL mg/dL (Negative); Urobilinogen,Urine < 2.0 mg/dL (<2.0)
[2017-11-08 08:31] LABS: Amphetamine Screen,Urine PRESUMPTIVE NEGATIVE; Benzodiazepines Screen,Urine PRESUMPTIVE NEGATIVE; Cocaine Screen,Urine PRESUMPTIVE NEGATIVE; Methadone Screen,Urine PRESUMPTIVE NEGATIVE; Opiate Screen,Urine PRESUMPTIVE NEGATIVE
[2017-11-08 08:43] LABS: Alanine Aminotransferase 13 units/L (7-56); Albumin 3.9 g/dL (3.9-5); BUN/Creatinine Ratio 28; Blood Urea Nitrogen 17 mg/dL (7-17); Calcium 8.4 mg/dL (8.4-10.2); Hemolysis Index 4
[2017-11-08 08:44] LABS: Basophils % (Auto) 0.6 % (0.0-1.8); Cannabinoid Screen,Urine PRESUMPTIVE POSITIVE; Eosinophils # (Auto) 0.1 K/mm3 (0.0-0.4); Eosinophils % (Auto) 2.4 % (0.0-4.3); Hematocrit 28.9 % (30.3-42.9); Hemoglobin 9.3 gm/dl (10.1-14.3); Lymphocytes # (Auto) 2.2 K/mm3 (1.2-5.4); Lymphocytes % (Auto) 43.8 % (13.4-35.0); Mean Corpuscular HGB Conc 32 % (30-34); Mean Corpuscular Hemoglobin 27 pg (28-32); Mean Corpuscular Volume 84 fl (79-97); Monocytes # (Auto) 0.6 K/mm3 (0.0-0.8); Monocytes % (Auto) 11.2 % (0.0-7.3); Platelet Count 257 K/mm3 (140-440); Red Blood Count 3.46 M/mm3 (3.65-5.03); Red Cell Distribution Width 15.8 % (13.2-15.2)
[2017-11-08] MEDS ORDERED: DILAUDID IV ONE (11:09)
[2017-11-08] MEDS ORDERED: BENADRYL ONE (11:18)
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
[2017-11-08] MEDS ORDERED: BENADRYL IV ONE (11:34)
[2017-11-08 11:38] VITALS: BP 145/94
== END 2017-11-08 11:38 | disposition home or self-care (01) ==
LOC: ED 04:54
DX: K58.9 Irritable bowel syndrome, unspecified (principal); K31.84 Gastroparesis; R10.9 Unspecified abdominal pain; I10 Essential (primary) hypertension; J45.909 Unspecified asthma, uncomplicated; D64.9 Anemia, unspecified; Z90.49 Acquired absence of other specified parts of digestive tract; Z90.710 Acquired absence of both cervix and uterus; Z72.0 Tobacco use; Z88.5 Allergy status to narcotic agent; Z87.442 Personal history of urinary calculi; Z88.8 Allergy status to other drugs, medicaments and biological substances; Z79.899 Other long term (current) drug therapy
CPT/HCPCS: 36415; 80053; 80307; 81001; 83690; 85025; 96374; 96375; 99283; J1170; J1200

== ENCOUNTER 2017-11-27 03:34 | Emergency (ER) | payer MEDICAID ==
[2017-11-27 03:40] VITALS: BP 135/81
[2017-11-27] MEDS ORDERED: NACL 0.9% 1000 ML 1,000 ML IV ONE (03:50)
== END 2017-11-27 12:00 | disposition left against medical advice (07) ==
LOC: ED 03:34
DX: R10.9 Unspecified abdominal pain (principal); Z53.21 Procedure and treatment not carried out due to patient leaving prior to being seen by health care provider

== ENCOUNTER 2018-06-24 13:59 | Emergency (ER) | payer MEDICAID ==
--- NOTE | 2018-06-24 14:10 | Emergency Department Report ---
Blank Doc - Documentation Documentation: This is a 42-year-old female that presents with abdominal pain, nausea and vom iting. Stated radiates from right to left. Patient denies any other symptoms. Denies any other complaints. PHX: SBO, pancreatitis, ovarian cancer This initial assessment diagnostic orders/clinical plan/treatment(s) is/are subject to change based on patient's health status, clinical progression and re- assessment by fellow clinical providers in the ED. Further treatment and workup at subsequent clinical providers discretion. Patient/guardians urged not to elope from ED s their condition may be serious if not clinically assessed and managed. Initial orders include: 1-Patient sent to [facility] for further evaluation and treatment 2- labs 3- UA
[2018-06-24 14:13] VITALS: BP 134/109
[2018-06-24 15:48] LABS: Alanine Aminotransferase 9 units/L (7-56); Albumin 4.4 g/dL (3.9-5); BUN/Creatinine Ratio 14; Blood Urea Nitrogen 10 mg/dL (7-17); Calcium 8.8 mg/dL (8.4-10.2); Hemolysis Index 13
[2018-06-24 15:50] LABS: Hematocrit 35.8 % (30.3-42.9); Hemoglobin 11.4 gm/dl (10.1-14.3); Mean Corpuscular HGB Conc 32 % (30-34); Mean Corpuscular Volume 81 fl (79-97); Red Blood Count 4.42 M/mm3 (3.65-5.03); Red Cell Distribution Width 15.4 % (13.2-15.2)
[2018-06-24 16:02] LABS: Platelet Count 209 K/mm3 (140-440)
[2018-06-24 16:22] LABS: Total Cells Counted 100
[2018-06-24 16:25] LABS: Poikilocytosis 1+
[2018-06-24 16:26] LABS: Giant Platelets Few; Hypochromasia 1+; Schistocytes Few
[2018-06-24 16:27] LABS: Anisocytosis 1+; Platelet Estimate Consistent w Auto
== END 2018-06-24 14:02 | disposition left against medical advice (07) ==
LOC: ED 13:59
DX: R10.9 Unspecified abdominal pain (principal); R11.2 Nausea with vomiting, unspecified; Z53.21 Procedure and treatment not carried out due to patient leaving prior to being seen by health care provider
CPT/HCPCS: 36415; 80053; 83690; 84703; 85007; 85025

== ENCOUNTER 2018-07-10 07:58 | Emergency (ER) | payer MEDICAID ==
[2018-07-10 08:49] LABS: Basophils % (Auto) 0.7 % (0.0-1.8); Eosinophils # (Auto) 0.1 K/mm3 (0.0-0.4); Eosinophils % (Auto) 1.7 % (0.0-4.3); Hematocrit 30.1 % (30.3-42.9); Hemoglobin 9.8 gm/dl (10.1-14.3); Lymphocytes # (Auto) 1.5 K/mm3 (1.2-5.4); Lymphocytes % (Auto) 37.3 % (13.4-35.0); Mean Corpuscular HGB Conc 33 % (30-34); Mean Corpuscular Volume 81 fl (79-97); Monocytes # (Auto) 0.5 K/mm3 (0.0-0.8); Monocytes % (Auto) 11.2 % (0.0-7.3); Platelet Count 172 K/mm3 (140-440); Red Cell Distribution Width 15.9 % (13.2-15.2)
[2018-07-10 09:22] LABS: Alanine Aminotransferase 12 units/L (7-56); BUN/Creatinine Ratio 12; Blood Urea Nitrogen 7 mg/dL (7-17); Calcium 8.6 mg/dL (8.4-10.2); Hemolysis Index 1
[2018-07-10] MEDS ORDERED: HALDOL IM ONE (10:55)
[2018-07-10] MEDS: NACL 0.9% 1000 ML 1,000 ML IV ONE ×2 (11:07→11:36)
[2018-07-10] MEDS ORDERED: PHENERGAN PR ONE (11:20)
[2018-07-10] MEDS ORDERED: DILAUDID IV ONE ×2 (11:20→13:25)
--- NOTE | 2018-07-10 11:41 | Emergency Department Report ---
ED General Adult HPI - General Chief complaint: Abdominal Pain Stated complaint: ABDOMINAL/VOMITING Time Seen by Provider: 07/10/18 09:35 Source: patient, EMS Mode of arrival: Wheelchair Limitations: No Limitations - History of Present Illness Initial comments: The patient complains of diffuse abdominal pain for the last 2 days. The patient has a History of multiple abdominal surgeries as well as multiple bowel obstructions. Patient also complains of nausea and vomiting, diarrhea. Patient denies chest pain, shows blood, headache. -: Gradual Location: abdomen Radiation: non-radiation Severity scale (0 -10): 8 Quality: sharp Consistency: constant Improves with: none Worsens with: none Associated Symptoms: denies other symptoms Treatments Prior to Arrival: none - Related Data Previous Rx's Medication Instructions Recorded Last Taken Type Promethazine [Phenergan TAB] 25 mg PO Q6HR PRN #20 tab 10/19/17 Unknown Rx oxyCODONE /ACETAMINOPHEN [Percocet 1 - 2 tab PO Q6HR PRN #12 tablet 03/12/18 Unknown Rx 5/325 mg] Amoxicillin/Potassium Clav 1 each PO BID #20 tablet 03/22/18 Unknown Rx [Augmentin 875-125 Tablet] Ondansetron [Zofran Odt] 4 mg PO Q8HR PRN #14 tab.rapdis 03/22/18 Unknown Rx Polymyxin B Sulf/Trimethoprim 2 drops OP TID 7 Days drops 03/22/18 Unknown Rx [Polytrim Eye Drops] traMADol [Ultram] 50 mg PO Q6HR PRN #14 tablet 03/22/18 Unknown Rx Docusate Sodium [Colace] 100 mg PO BID PRN #60 capsule 04/15/18 Unknown Rx Lactulose 10 gm PO DAILY PRN #150 ml 04/15/18 Unknown Rx Sodium Phosphate,[place]-Dibasic 118 ml RC ONCE #1 enema 04/15/18 Unknown Rx [Fleet Enema] Promethazine [Phenergan SUPPOS] 25 mg [place] Q6HR PRN #10 supp.rect 05/07/18 Unknown Rx Promethazine [Phenergan TAB] 25 mg PO Q6HR PRN #10 tab 05/07/18 Unknown Rx Promethazine [Phenergan TAB] 25 mg PO Q6HR PRN #20 tab 07/10/18 Unknown Rx oxyCODONE /ACETAMINOPHEN [Percocet 1 tab PO Q4HR PRN #12 tab 07/10/18 Unknown Rx 5/325] Allergies Allergy/AdvReac Type Severity Reaction Status Date / Time codeine Allergy Itching Verified 12/24/16 08:17 fentanyl Allergy Hives Verified 12/24/16 08:17 ketorolac tromethamine Allergy Itching Verified 12/24/16 08:17 [From Toradol] metoclopramide HCl Allergy Hives Verified 12/24/16 08:17 [From Reglan] morphine Allergy Hives Verified 12/24/16 08:17 ondansetron HCl [From Zofran] Allergy Hives Verified 12/24/16 08:17 prochlorperazine edisylate Allergy Hives Verified 12/24/16 08:17 [From Compazine] prochlorperazine maleate Allergy Hives Verified 12/24/16 08:17 [From Compazine] ED Review of Systems ROS: Stated complaint: ABDOMINAL/VOMITING Other details as noted in HPI Comment: All other systems reviewed and negative Constitutional: denies: chills, fever Eyes: denies: eye pain, eye discharge, vision change ENT: denies: ear pain, throat pain Respiratory: denies: cough, shortness of breath, wheezing Cardiovascular: denies: chest pain, palpitations Endocrine: no symptoms reported Gastrointestinal: abdominal pain. denies: nausea, diarrhea Genitourinary: denies: urgency, dysuria, discharge Musculoskeletal: denies: back pain, joint swelling, arthralgia Skin: denies: rash, lesions Neurological: denies: headache, weakness, paresthesias Psychiatric: denies: anxiety, depression Hematological/Lymphatic: denies: easy bleeding, easy bruising ED Past Medical Hx - Past Medical History Hx Hypertension: Yes Hx CVA: No Hx Heart Attack/AMI: No Hx Congestive Heart Failure: No Hx Diabetes: No Hx Deep Vein Thrombosis: No Hx Pulmonary Embolism: No Hx GERD: Yes (Gastroparesis) Hx Liver Disease: No Hx Renal Disease: Yes (renal failure- now in remission) Hx Sickle Cell Disease: No Hx Arthritis: No Hx Headaches / Migraines: No Hx Seizures: No Hx Kidney Stones: Yes Hx Psychiatric Treatment: No Hx Asthma: Yes Hx COPD: No Hx Tuberculosis: No Hx Dementia: No Hx HIV: No Additional medical history: ovarian/lung ca, gastroparesis, IBS, chronic pancreatitis, anemia. (LYMPHOMA LUNG), pyelonephritis, herpes, Small bowel obstruction,. PORT RIGHT CHEST - Surgical History Hx Coronary Stent: No Hx Open Heart Surgery: No Hx Pacemaker: No Hx Internal Defibrillator: No Hx Cholecystectomy: Yes Hx Appendectomy: No Hx Breast Surgery: No Additional Surgical History: fistula repair, lower bowel dissection, stents (in/out), hysterectomy. Power port - Social History Smoking Status: Never Smoker Substance Use Type: None - Medications Home Medications: Home Medications Medication Instructions Recorded Confirmed Last Taken Type Promethazine [Phenergan TAB] 25 mg PO Q6HR PRN #20 tab 10/19/17 Unknown Rx oxyCODONE /ACETAMINOPHEN [Percocet 1 - 2 tab PO Q6HR PRN #12 tablet 03/12/18 Unknown Rx 5/325 mg] Amoxicillin/Potassium Clav 1 each PO BID #20 tablet 03/22/18 Unknown Rx [Augmentin 875-125 Tablet] Ondansetron [Zofran Odt] 4 mg PO Q8HR PRN #14 tab.rapdis 03/22/18 Unknown Rx Polymyxin B Sulf/Trimethoprim 2 drops OP TID 7 Days drops 03/22/18 Unknown Rx [Polytrim Eye Drops] traMADol [Ultram] 50 mg PO Q6HR PRN #14 tablet 03/22/18 Unknown Rx Docusate Sodium [Colace] 100 mg PO BID PRN #60 capsule 04/15/18 Unknown Rx Lactulose 10 gm PO DAILY PRN #150 ml 04/15/18 Unknown Rx Sodium Phosphate,[place]-Dibasic 118 ml RC ONCE #1 enema 04/15/18 Unknown Rx [Fleet Enema] Promethazine [Phenergan SUPPOS] 25 mg [place] Q6HR PRN #10 supp.rect 05/07/18 Unknown Rx Promethazine [Phenergan TAB] 25 mg PO Q6HR PRN #10 tab 05/07/18 Unknown Rx Promethazine [Phenergan TAB] 25 mg PO Q6HR PRN #20 tab 07/10/18 Unknown Rx oxyCODONE /ACETAMINOPHEN [Percocet 1 tab PO Q4HR PRN #12 tab 07/10/18 Unknown Rx 5/325] ED Physical Exam - General Limitations: No Limitations General appearance: alert, in no apparent distress - Head Head exam: Present: atraumatic, normocephalic - Eye Eye exam: Present: normal appearance, PERRL, EOMI - ENT ENT exam: Present: mucous membranes moist - Neck Neck exam: Present: normal inspection - Respiratory Respiratory exam: Present: normal lung sounds bilaterally, other (port right upper chest wall). Absent: respiratory distress, wheezes, rales, rhonchi - Cardiovascular Cardiovascular Exam: Present: regular rate, normal rhythm. Absent: systolic murmur, diastolic murmur, rubs, gallop - GI/Abdominal GI/Abdominal exam: Present: soft, tenderness (diffusely tender to palpation), normal bowel sounds. Absent: distended - Extremities Exam Extremities exam: Present: normal inspection - Back Exam Back exam: Present: normal inspection - Neurological Exam Neurological exam: Present: alert, oriented X3, CN II-XII intact. Absent: motor sensory deficit - Psychiatric Psychiatric exam: Present: normal affect, normal mood - Skin Skin exam: Present: warm, dry, intact, normal color. Absent: rash ED Course Vital Signs 07/10/18 07/10/18 07/10/18 08:08 08:44 09:16 Temperature 98.7 F Pulse Rate 79 74 Respiratory 18 18 18 Rate Blood Pressure 149/90 122/75 [Left] O2 Sat by Pulse 96 96 100 Oximetry ED Medical Decision Making - Lab Data Result diagrams: 07/10/18 08:40 07/10/18 08:40 Lab Results 07/10/18 07/10/18 07/10/18 Range/Units 08:40 08:40 08:40 WBC 4.1 L (4.5-11.0) K/mm3 RBC 3.70 (3.65-5.03) M/mm3 Hgb 9.8 L (10.1-14.3) gm/dl Hct 30.1 L (30.3-42.9) % MCV 81 (79-97) fl MCH 27 L (28-32) pg MCHC 33 (30-34) % RDW 15.9 H (13.2-15.2) % Plt Count 172 (140-440) K/mm3 Lymph % (Auto) 37.3 H (13.4-35.0) % [place] % (Auto) 11.2 H (0.0-7.3) % Eos % (Auto) 1.7 (0.0-4.3) % Baso % (Auto) 0.7 (0.0-1.8) % Lymph # 1.5 (1.2-5.4) K/mm3 [place] # 0.5 (0.0-0.8) K/mm3 Eos # 0.1 (0.0-0.4) K/mm3 Baso # 0.0 (0.0-0.1) K/mm3 Seg Neutrophils % 49.1 (40.0-70.0) % Seg Neutrophils # 2.0 (1.8-7.7) K/mm3 Sodium 143 (137-145) mmol/L Potassium 3.8 (3.6-5.0) mmol/L Chloride 107.1 H (98-107) mmol/L Carbon Dioxide 26 (22-30) mmol/L Anion Gap 14 mmol/L BUN 7 (7-17) mg/dL Creatinine 0.6 L (0.7-1.2) mg/dL Estimated GFR > 60 ml/min BUN/Creatinine Ratio 12 % Glucose 91 (65-100) mg/dL Calcium 8.6 (8.4-10.2) mg/dL Total Bilirubin 0.30 (0.1-1.2) mg/dL AST 44 H (5-40) units/L ALT 12 (7-56) units/L Alkaline Phosphatase 61 (35-129) units/L Total Protein 6.4 (6.3-8.2) g/dL Albumin 4.0 (3.9-5) g/dL Albumin/Globulin Ratio 1.7 % Lipase 25 (13-60) units/L - Radiology Data Radiology results: report reviewed - Medical Decision Making Discussed results with the patient Critical care attestation.: If time is entered above; I have spent that time in minutes in the direct care of this critically ill patient, excluding procedure time. ED Disposition Clinical Impression: Abdominal pain Disposition: DC-01 TO HOME OR SELFCARE Is pt being admited?: No Does the pt Need Aspirin: No Condition: Stable Instructions: Abdominal Pain (ED) Additional Instructions: return if worse Prescriptions: oxyCODONE /ACETAMINOPHEN [Percocet 5/325] 1 tab PO Q4HR PRN #12 tab PRN Reason: pain Promethazine [Phenergan TAB] 25 mg PO Q6HR PRN #20 tab PRN Reason: Nausea Referrals: PRIMARY CAREMD [Referring] - 3-5 Days [facility] [Provider Group] - 3-5 Days [facility] [Provider Group] - 3-5 Days HORACE PADILLA MD [Staff Physician] - 3-5 Days Time of Disposition: 13:21
--- NOTE | 2018-07-10 12:25 | Cat Scan Report ---
CT ABDOMEN PELVIS WITHOUT CONTRAST: HISTORY: Pain. COMPARISON: 05/07/18. TECHNIQUE: Helical CT in 1.25mm intervals without IV contrast. Sagittal and coronal reconstructions. FINDINGS: Lung bases: Normal. Liver: Normal. Biliary system: Cholecystectomy. Pancreas: Normal. Spleen: Normal. Kidneys/ureters/bladder: Punctate stones in the left kidney and 1 cm cyst at the inferior pole of the left kidney are unchanged. The right kidney, collecting systems and bladder are unremarkable. Adrenal glands: Normal. Aorta: Normal. Intestines: Normal. Appendix: Normal. Pelvic viscera: Hysterectomy. Ascites: None. Adenopathy: None. Musculoskeletal: Intact. IMPRESSION: No acute process is identified. Punctate left renal stones, nonobstructing. Surgical changes as described. No change is appreciated since 05/07/18.
[2018-07-10] MEDS ORDERED: FLUSH HEPARIN IV ONE ×2 (13:31→13:53)
[2018-07-10 13:53] VITALS: BP 138/79
== END 2018-07-10 13:54 | disposition home or self-care (01) ==
LOC: ED 07:58
DX: R10.84 Generalized abdominal pain (principal); R11.2 Nausea with vomiting, unspecified; R19.7 Diarrhea, unspecified; I10 Essential (primary) hypertension; K21.9 Gastro-esophageal reflux disease without esophagitis; J45.909 Unspecified asthma, uncomplicated; Z90.49 Acquired absence of other specified parts of digestive tract; Z90.710 Acquired absence of both cervix and uterus; Z88.6 Allergy status to analgesic agent; Z88.8 Allergy status to other drugs, medicaments and biological substances
CPT/HCPCS: 36415; 74176; 80053; 83690; 85025; 96361; 96374; 96375; 96376; 99284; J1170; J1642; J1630

== ENCOUNTER 2018-07-30 03:38 | Emergency (ER) | payer MEDICAID ==
[2018-07-30 03:48] VITALS: BP 114/74
== END 2018-07-30 11:56 | disposition left against medical advice (07) ==
LOC: ED 03:38
DX: J02.9 Acute pharyngitis, unspecified (principal); Z53.21 Procedure and treatment not carried out due to patient leaving prior to being seen by health care provider

== ENCOUNTER 2018-08-13 07:57 | Emergency (ER) | payer MEDICAID ==
[2018-08-13] MEDS ORDERED: ZOFRAN IV ONE (09:19)
[2018-08-13] MEDS ORDERED: NACL 0.9% 1000 ML 1,000 ML IV ONE (09:19)
[2018-08-13] MEDS ORDERED: STADOL IV NR (09:20)
[2018-08-13] MEDS ORDERED: BENADRYL IV ONE ×2 (09:20→09:23)
--- NOTE | 2018-08-13 09:26 | Emergency Department Report ---
ED General Adult HPI - General Chief complaint: Abdominal Pain Stated complaint: SEVERE ABD PAIN/VOMIT Time Seen by Provider: 08/13/18 08:55 Source: patient Mode of arrival: Ambulatory Limitations: No Limitations - History of Present Illness Initial comments: Patient presents to the emergency department with a chief complaint of diffuse abdominal pain. The patient has a history of chronic pancreatitis and has issues with abdominal pain. Patient also complains of some nausea and vomiting. Patient denies diarrhea, fever, chest pain, headache. -: Sudden Location: abdomen Radiation: non-radiation Severity scale (0 -10): 8 Quality: aching Consistency: constant Improves with: none Worsens with: none Associated Symptoms: nausea/vomiting Treatments Prior to Arrival: none - Related Data Previous Rx's Medication Instructions Recorded Last Taken Type Promethazine [Phenergan TAB] 25 mg PO Q6HR PRN #20 tab 10/19/17 Unknown Rx oxyCODONE /ACETAMINOPHEN [Percocet 1 - 2 tab PO Q6HR PRN #12 tablet 03/12/18 Unknown Rx 5/325 mg] Amoxicillin/Potassium Clav 1 each PO BID #20 tablet 03/22/18 Unknown Rx [Augmentin 875-125 Tablet] Ondansetron [Zofran Odt] 4 mg PO Q8HR PRN #14 tab.rapdis 03/22/18 Unknown Rx Polymyxin B Sulf/Trimethoprim 2 drops OP TID 7 Days drops 03/22/18 Unknown Rx [Polytrim Eye Drops] traMADol [Ultram] 50 mg PO Q6HR PRN #14 tablet 03/22/18 Unknown Rx Docusate Sodium [Colace] 100 mg PO BID PRN #60 capsule 04/15/18 Unknown Rx Lactulose 10 gm PO DAILY PRN #150 ml 04/15/18 Unknown Rx Sodium Phosphate,[place]-Dibasic 118 ml RC ONCE #1 enema 04/15/18 Unknown Rx [Fleet Enema] Promethazine [Phenergan SUPPOS] 25 mg [place] Q6HR PRN #10 supp.rect 05/07/18 Unknown Rx Promethazine [Phenergan TAB] 25 mg PO Q6HR PRN #10 tab 05/07/18 Unknown Rx Promethazine [Phenergan TAB] 25 mg PO Q6HR PRN #20 tab 07/10/18 Unknown Rx oxyCODONE /ACETAMINOPHEN [Percocet 1 tab PO Q4HR PRN #12 tab 07/10/18 Unknown Rx 5/325] Ondansetron [Zofran Odt] 4 mg PO Q4HR PRN #20 tab.rapdis 08/13/18 Unknown Rx Oxycodone HCl/Acetaminophen 1 each PO Q6HR PRN #6 tablet 08/13/18 Unknown Rx [Percocet 10/325 mg] Promethazine [Phenergan TAB] 25 mg PO Q6HR PRN #20 tab 08/13/18 Unknown Rx Allergies Allergy/AdvReac Type Severity Reaction Status Date / Time codeine Allergy Itching Verified 12/24/16 08:17 fentanyl Allergy Hives Verified 12/24/16 08:17 ketorolac tromethamine Allergy Itching Verified 12/24/16 08:17 [From Toradol] metoclopramide HCl Allergy Hives Verified 12/24/16 08:17 [From Reglan] morphine Allergy Hives Verified 12/24/16 08:17 ondansetron HCl [From Zofran] Allergy Hives Verified 12/24/16 08:17 prochlorperazine edisylate Allergy Hives Verified 12/24/16 08:17 [From Compazine] prochlorperazine maleate Allergy Hives Verified 12/24/16 08:17 [From Compazine] ED Review of Systems ROS: Stated complaint: SEVERE ABD PAIN/VOMIT Other details as noted in HPI Comment: All other systems reviewed and negative Constitutional: denies: chills, fever Eyes: denies: eye pain, eye discharge, vision change ENT: denies: ear pain, throat pain Respiratory: denies: cough, shortness of breath, wheezing Cardiovascular: denies: chest pain, palpitations Endocrine: no symptoms reported Gastrointestinal: abdominal pain, nausea, vomiting. denies: diarrhea Genitourinary: denies: urgency, dysuria, discharge Musculoskeletal: denies: back pain, joint swelling, arthralgia Skin: denies: rash, lesions Neurological: denies: headache, weakness, paresthesias Psychiatric: denies: anxiety, depression Hematological/Lymphatic: denies: easy bleeding, easy bruising ED Past Medical Hx - Past Medical History Previous Medical History?: Yes Hx Hypertension: Yes Hx CVA: No Hx Heart Attack/AMI: No Hx Congestive Heart Failure: No Hx Diabetes: No Hx Deep Vein Thrombosis: No Hx Pulmonary Embolism: No Hx GERD: Yes (Gastroparesis) Hx Liver Disease: No Hx Renal Disease: Yes (renal failure- now in remission) Hx Sickle Cell Disease: No Hx Arthritis: No Hx Headaches / Migraines: No Hx Seizures: No Hx Kidney Stones: Yes Hx Psychiatric Treatment: No Hx Asthma: Yes Hx COPD: No Hx Tuberculosis: No Hx Dementia: No Hx HIV: No Additional medical history: ovarian/lung ca, gastroparesis, IBS, chronic pancreatitis, anemia. (LYMPHOMA LUNG), pyelonephritis, herpes, Small bowel obstruction,. PORT RIGHT CHEST - Surgical History Past Surgical History?: Yes Hx Coronary Stent: No Hx Open Heart Surgery: No Hx Pacemaker: No Hx Internal Defibrillator: No Hx Cholecystectomy: Yes Hx Appendectomy: No Hx Breast Surgery: No Additional Surgical History: fistula repair, lower bowel dissection, stents (in/out), hysterectomy. Power port - Social History Smoking Status: Never Smoker Substance Use Type: None - Medications Home Medications: Home Medications Medication Instructions Recorded Confirmed Last Taken Type Promethazine [Phenergan TAB] 25 mg PO Q6HR PRN #20 tab 10/19/17 Unknown Rx oxyCODONE /ACETAMINOPHEN [Percocet 1 - 2 tab PO Q6HR PRN #12 tablet 03/12/18 Unknown Rx 5/325 mg] Amoxicillin/Potassium Clav 1 each PO BID #20 tablet 03/22/18 Unknown Rx [Augmentin 875-125 Tablet] Ondansetron [Zofran Odt] 4 mg PO Q8HR PRN #14 tab.rapdis 03/22/18 Unknown Rx Polymyxin B Sulf/Trimethoprim 2 drops OP TID 7 Days drops 03/22/18 Unknown Rx [Polytrim Eye Drops] traMADol [Ultram] 50 mg PO Q6HR PRN #14 tablet 03/22/18 Unknown Rx Docusate Sodium [Colace] 100 mg PO BID PRN #60 capsule 04/15/18 Unknown Rx Lactulose 10 gm PO DAILY PRN #150 ml 04/15/18 Unknown Rx Sodium Phosphate,[place]-Dibasic 118 ml RC ONCE #1 enema 04/15/18 Unknown Rx [Fleet Enema] Promethazine [Phenergan SUPPOS] 25 mg [place] Q6HR PRN #10 supp.rect 05/07/18 Unknown Rx Promethazine [Phenergan TAB] 25 mg PO Q6HR PRN #10 tab 05/07/18 Unknown Rx Promethazine [Phenergan TAB] 25 mg PO Q6HR PRN #20 tab 07/10/18 Unknown Rx oxyCODONE /ACETAMINOPHEN [Percocet 1 tab PO Q4HR PRN #12 tab 07/10/18 Unknown Rx 5/325] Ondansetron [Zofran Odt] 4 mg PO Q4HR PRN #20 tab.rapdis 08/13/18 Unknown Rx Oxycodone HCl/Acetaminophen 1 each PO Q6HR PRN #6 tablet 08/13/18 Unknown Rx [Percocet 10/325 mg] Promethazine [Phenergan TAB] 25 mg PO Q6HR PRN #20 tab 08/13/18 Unknown Rx ED Physical Exam - General Limitations: No Limitations General appearance: alert, in no apparent distress - Head Head exam: Present: atraumatic, normocephalic - Eye Eye exam: Present: normal appearance, PERRL, EOMI - ENT ENT exam: Present: mucous membranes moist - Neck Neck exam: Present: normal inspection - Respiratory Respiratory exam: Present: normal lung sounds bilaterally. Absent: respiratory distress, wheezes, rales, rhonchi - Cardiovascular Cardiovascular Exam: Present: regular rate, normal rhythm. Absent: systolic murmur, diastolic murmur, rubs, gallop - GI/Abdominal GI/Abdominal exam: Present: soft, normal bowel sounds. Absent: distended, tenderness - Extremities Exam Extremities exam: Present: normal inspection - Back Exam Back exam: Present: normal inspection - Neurological Exam Neurological exam: Present: alert, oriented X3, CN II-XII intact. Absent: motor sensory deficit - Psychiatric Psychiatric exam: Present: normal affect, normal mood - Skin Skin exam: Present: warm, dry, intact, normal color. Absent: rash ED Course Vital Signs 08/13/18 08/13/18 08/13/18 08:01 10:28 10:30 Temperature 98.7 F Pulse Rate 93 H Respiratory 18 Rate Blood Pressure 118/85 Blood Pressure [Left] O2 Sat by Pulse 98 92 100 Oximetry 08/13/18 08/13/18 08/13/18 10:45 10:46 10:49 Temperature 98 F Pulse Rate 83 Respiratory 18 17 Rate Blood Pressure Blood Pressure 133/83 [Left] O2 Sat by Pulse 100 100 Oximetry 08/13/18 08/13/18 08/13/18 11:00 11:09 11:16 Temperature Pulse Rate Respiratory 18 Rate Blood Pressure Blood Pressure [Left] O2 Sat by Pulse 98 98 Oximetry 08/13/18 11:28 Temperature Pulse Rate 89 Respiratory Rate Blood Pressure Blood Pressure [Left] O2 Sat by Pulse Oximetry ED Medical Decision Making - Lab Data Result diagrams: 08/13/18 10:09 08/13/18 10:09 Lab Results 08/13/18 08/13/18 08/13/18 Range/Units 10:09 10:09 10:49 WBC 4.7 (4.5-11.0) K/mm3 RBC 4.45 (3.65-5.03) M/mm3 Hgb 11.6 (10.1-14.3) gm/dl Hct 35.7 (30.3-42.9) % MCV 80 (79-97) fl MCH 26 L (28-32) pg MCHC 33 (30-34) % RDW 15.9 H (13.2-15.2) % Plt Count 230 (140-440) K/mm3 Lymph % (Auto) 40.7 H (13.4-35.0) % [place] % (Auto) 8.8 H (0.0-7.3) % Eos % (Auto) 1.1 (0.0-4.3) % Baso % (Auto) 0.6 (0.0-1.8) % Lymph # 1.9 (1.2-5.4) K/mm3 [place] # 0.4 (0.0-0.8) K/mm3 Eos # 0.1 (0.0-0.4) K/mm3 Baso # 0.0 (0.0-0.1) K/mm3 Seg Neutrophils % 48.8 (40.0-70.0) % Seg Neutrophils # 2.3 (1.8-7.7) K/mm3 Sodium 142 (137-145) mmol/L Potassium 4.7 (3.6-5.0) mmol/L Chloride 103.7 (98-107) mmol/L Carbon Dioxide 26 (22-30) mmol/L Anion Gap 17 mmol/L BUN 17 (7-17) mg/dL Creatinine 0.7 (0.7-1.2) mg/dL Estimated GFR > 60 ml/min BUN/Creatinine Ratio 24 % Glucose 79 (65-100) mg/dL Calcium 9.3 (8.4-10.2) mg/dL Total Bilirubin 0.20 (0.1-1.2) mg/dL AST 38 (5-40) units/L ALT 8 (7-56) units/L Alkaline Phosphatase 71 (35-129) units/L Total Protein 7.6 (6.3-8.2) g/dL Albumin 4.6 (3.9-5) g/dL Albumin/Globulin Ratio 1.5 % Lipase 152 H (13-60) units/L Urine Color Straw (Yellow) Urine Turbidity Clear (Clear) Urine pH 6.0 (5.0-7.0) Ur Specific [place] 1.010 (1.003-1.030) Urine Protein <15 mg/dl (Negative) mg/dL Urine Glucose (UA) Neg (Negative) mg/dL Urine Ketones Neg (Negative) mg/dL Urine Blood Sm (Negative) Urine Nitrite Neg (Negative) Urine Bilirubin Neg (Negative) Urine Urobilinogen < 2.0 (<2.0) mg/dL Ur Leukocyte Esterase Neg (Negative) Urine WBC (Auto) 1.0 (0.0-6.0) /HPF Urine RBC (Auto) 2.0 (0.0-6.0) /HPF U Epithel Cells (Auto) 1.0 (0-13.0) /HPF Urine Mucus Few /HPF - Radiology Data Radiology results: report reviewed - Medical Decision Making Discussed results with patient Patient states she is taking Percocet and Phenergan in the past history without issue Critical care attestation.: If time is entered above; I have spent that time in minutes in the direct care of this critically ill patient, excluding procedure time. ED Disposition Clinical Impression: Abdominal pain Disposition: DC-01 TO HOME OR SELFCARE Is pt being admited?: No Does the pt Need Aspirin: No Condition: Stable Instructions: Abdominal Pain (ED) Additional Instructions: return if worse Prescriptions: Oxycodone HCl/Acetaminophen [Percocet 10/325 mg] 1 each PO Q6HR PRN #6 tablet PRN Reason: Pain Promethazine [Phenergan TAB] 25 mg PO Q6HR PRN #20 tab PRN Reason: Nausea Ondansetron [Zofran Odt] 4 mg PO Q4HR PRN #20 tab.rapdis PRN Reason: Nausea Referrals: BECKI BROWN MD [Primary Care Provider] - 3-5 Days Time of Disposition: 11:42
[2018-08-13 10:36] LABS: Basophils % (Auto) 0.6 % (0.0-1.8); Eosinophils # (Auto) 0.1 K/mm3 (0.0-0.4); Eosinophils % (Auto) 1.1 % (0.0-4.3); Hematocrit 35.7 % (30.3-42.9); Hemoglobin 11.6 gm/dl (10.1-14.3); Lymphocytes # (Auto) 1.9 K/mm3 (1.2-5.4); Lymphocytes % (Auto) 40.7 % (13.4-35.0); Mean Corpuscular HGB Conc 33 % (30-34); Mean Corpuscular Volume 80 fl (79-97); Monocytes # (Auto) 0.4 K/mm3 (0.0-0.8); Monocytes % (Auto) 8.8 % (0.0-7.3); Platelet Count 230 K/mm3 (140-440); Red Blood Count 4.45 M/mm3 (3.65-5.03); Red Cell Distribution Width 15.9 % (13.2-15.2)
[2018-08-13 10:39] LABS: Alanine Aminotransferase 8 units/L (7-56); Albumin 4.6 g/dL (3.9-5); BUN/Creatinine Ratio 24; Blood Urea Nitrogen 17 mg/dL (7-17); Calcium 9.3 mg/dL (8.4-10.2); Hemolysis Index 17
[2018-08-13 10:50] VITALS: BP 133/83
[2018-08-13 11:02] LABS: Bilirubin,Urine NEG (Negative); Blood,Urine SM (Negative); Color,Urine Straw (Yellow); Mucus,Urine FEW /HPF; Protein,Urine <15 mg/dL mg/dL (Negative); Urobilinogen,Urine < 2.0 mg/dL (<2.0)
--- NOTE | 2018-08-13 11:05 | XRay Report ---
Abdominal series: Abdominal pain. AP view of the chest demonstrates an [id number] entering the right jugular vein with the tip in the mid SVC. The lungs are clear the mediastinal contour is unremarkable. There is an unremarkable bowel gas pattern. No free air noted. No soft tissue mass. Cholecystectomy clips noted. Surgical clips also identified in the low right pelvis. Visualized bones are unremarkable. Impression: No acute pathology identified.
[2018-08-13] MEDS ORDERED: STADOL IV PRN (11:10)
[2018-08-13] MEDS ORDERED: PERCOCET 5/325 ONE (11:32)
[2018-08-13] MEDS ORDERED: PERCOCET 5/325 PO ONE (12:02)
== END 2018-08-13 11:59 | disposition home or self-care (01) ==
LOC: ED 07:57
DX: R10.84 Generalized abdominal pain (principal); R11.2 Nausea with vomiting, unspecified; I10 Essential (primary) hypertension
CPT/HCPCS: 36415; 74022; 80053; 81001; 83690; 85025; 96361; 96374; 96375; 96376; 99284; J0595; J1200; J2405; J7030

== ENCOUNTER 2018-08-22 08:01 | Emergency (ER) | payer MEDICAID ==
[2018-08-22 08:06] VITALS: BP 113/77
[2018-08-22] MEDS ORDERED: NACL 0.9% 1000 ML 1,000 ML IV ONE (09:59)
--- NOTE | 2018-08-22 10:49 | Emergency Department Report ---
ED Abdominal Pain HPI - General Chief Complaint: Abdominal Pain Stated Complaint: BOWEL ISSUES Time Seen by Provider: 08/22/18 08:46 Source: patient Mode of arrival: Ambulatory Limitations: No Limitations - History of Present Illness Initial Comments: Patient is a 43-year-old female with a past medical history gastrointestinal surgery, small bowel obstruction, chronic pancreatitis and gastroparesis who presents to ED complaining of right sided abdominal pain radiating to her back started about a week ago. Patient also states that she has not had a bowel movement in 6 days. Patient states that this feels like her bowel bowel obstruction symptoms. She states that she exhibited taken tonight water but started vomiting yesterday but has resolved. MD Complaint: abdominal pain Severity scale (0 -10): 8 - Related Data Previous Rx's Medication Instructions Recorded Last Taken Type Promethazine [Phenergan TAB] 25 mg PO Q6HR PRN #20 tab 10/19/17 Unknown Rx oxyCODONE /ACETAMINOPHEN [Percocet 1 - 2 tab PO Q6HR PRN #12 tablet 03/12/18 Unknown Rx 5/325 mg] Amoxicillin/Potassium Clav 1 each PO BID #20 tablet 03/22/18 Unknown Rx [Augmentin 875-125 Tablet] Ondansetron [Zofran Odt] 4 mg PO Q8HR PRN #14 tab.rapdis 03/22/18 Unknown Rx Polymyxin B Sulf/Trimethoprim 2 drops OP TID 7 Days drops 03/22/18 Unknown Rx [Polytrim Eye Drops] traMADol [Ultram] 50 mg PO Q6HR PRN #14 tablet 03/22/18 Unknown Rx Docusate Sodium [Colace] 100 mg PO BID PRN #60 capsule 04/15/18 Unknown Rx Lactulose 10 gm PO DAILY PRN #150 ml 04/15/18 Unknown Rx Sodium Phosphate,[place]-Dibasic 118 ml RC ONCE #1 enema 04/15/18 Unknown Rx [Fleet Enema] Promethazine [Phenergan SUPPOS] 25 mg [place] Q6HR PRN #10 supp.rect 05/07/18 Unknown Rx Promethazine [Phenergan TAB] 25 mg PO Q6HR PRN #10 tab 05/07/18 Unknown Rx Promethazine [Phenergan TAB] 25 mg PO Q6HR PRN #20 tab 07/10/18 Unknown Rx oxyCODONE /ACETAMINOPHEN [Percocet 1 tab PO Q4HR PRN #12 tab 07/10/18 Unknown Rx 5/325] Ondansetron [Zofran Odt] 4 mg PO Q4HR PRN #20 tab.rapdis 08/13/18 Unknown Rx Oxycodone HCl/Acetaminophen 1 each PO Q6HR PRN #6 tablet 08/13/18 Unknown Rx [Percocet 10/325 mg] Promethazine [Phenergan TAB] 25 mg PO Q6HR PRN #20 tab 08/13/18 Unknown Rx Allergies Allergy/AdvReac Type Severity Reaction Status Date / Time codeine Allergy Itching Verified 12/24/16 08:17 fentanyl Allergy Hives Verified 12/24/16 08:17 ketorolac tromethamine Allergy Itching Verified 12/24/16 08:17 [From Toradol] metoclopramide HCl Allergy Hives Verified 12/24/16 08:17 [From Reglan] morphine Allergy Hives Verified 12/24/16 08:17 ondansetron HCl [From Zofran] Allergy Hives Verified 12/24/16 08:17 prochlorperazine edisylate Allergy Hives Verified 12/24/16 08:17 [From Compazine] prochlorperazine maleate Allergy Hives Verified 12/24/16 08:17 [From Compazine] ED Review of Systems ROS: Stated complaint: BOWEL ISSUES Other details as noted in HPI ED Past Medical Hx - Past Medical History Previous Medical History?: Yes Hx Hypertension: Yes Hx CVA: No Hx Heart Attack/AMI: No Hx Congestive Heart Failure: No Hx Diabetes: No Hx Deep Vein Thrombosis: No Hx Pulmonary Embolism: No Hx GERD: Yes (Gastroparesis) Hx Liver Disease: No Hx Renal Disease: Yes (renal failure- now in remission) Hx Sickle Cell Disease: No Hx Arthritis: No Hx Headaches / Migraines: No Hx Seizures: No Hx Kidney Stones: Yes Hx Psychiatric Treatment: No Hx Asthma: Yes Hx COPD: No Hx Tuberculosis: No Hx Dementia: No Hx HIV: No Additional medical history: ovarian/lung ca, gastroparesis, IBS, chronic pancreatitis, anemia. (LYMPHOMA LUNG), pyelonephritis, herpes, Small bowel obstruction,. PORT RIGHT CHEST - Surgical History Past Surgical History?: Yes Hx Coronary Stent: No Hx Open Heart Surgery: No Hx Pacemaker: No Hx Internal Defibrillator: No Hx Cholecystectomy: Yes Hx Appendectomy: No Hx Breast Surgery: No Additional Surgical History: fistula repair, lower bowel dissection, stents (in/out), hysterectomy. Power port - Social History Smoking Status: Never Smoker Substance Use Type: None - Medications Home Medications: Home Medications Medication Instructions Recorded Confirmed Last Taken Type Promethazine [Phenergan TAB] 25 mg PO Q6HR PRN #20 tab 10/19/17 Unknown Rx oxyCODONE /ACETAMINOPHEN [Percocet 1 - 2 tab PO Q6HR PRN #12 tablet 03/12/18 Unknown Rx 5/325 mg] Amoxicillin/Potassium Clav 1 each PO BID #20 tablet 03/22/18 Unknown Rx [Augmentin 875-125 Tablet] Ondansetron [Zofran Odt] 4 mg PO Q8HR PRN #14 tab.rapdis 03/22/18 Unknown Rx Polymyxin B Sulf/Trimethoprim 2 drops OP TID 7 Days drops 03/22/18 Unknown Rx [Polytrim Eye Drops] traMADol [Ultram] 50 mg PO Q6HR PRN #14 tablet 03/22/18 Unknown Rx Docusate Sodium [Colace] 100 mg PO BID PRN #60 capsule 04/15/18 Unknown Rx Lactulose 10 gm PO DAILY PRN #150 ml 04/15/18 Unknown Rx Sodium Phosphate,[place]-Dibasic 118 ml RC ONCE #1 enema 04/15/18 Unknown Rx [Fleet Enema] Promethazine [Phenergan SUPPOS] 25 mg UT Q6HR PRN #10 supp.rect 05/07/18 Unknown Rx Promethazine [Phenergan TAB] 25 mg PO Q6HR PRN #10 tab 05/07/18 Unknown Rx Promethazine [Phenergan TAB] 25 mg PO Q6HR PRN #20 tab 07/10/18 Unknown Rx oxyCODONE /ACETAMINOPHEN [Percocet 1 tab PO Q4HR PRN #12 tab 07/10/18 Unknown Rx 5/325] Ondansetron [Zofran Odt] 4 mg PO Q4HR PRN #20 tab.rapdis 08/13/18 Unknown Rx Oxycodone HCl/Acetaminophen 1 each PO Q6HR PRN #6 tablet 08/13/18 Unknown Rx [Percocet 10/325 mg] Promethazine [Phenergan TAB] 25 mg PO Q6HR PRN #20 tab 08/13/18 Unknown Rx ED Physical Exam - General Limitations: No Limitations ED Course Vital Signs 08/22/18 08:05 Temperature 98.5 F Pulse Rate 87 Respiratory 18 Rate Blood Pressure 113/77 [Right] O2 Sat by Pulse 98 Oximetry - Reevaluation(s) Reevaluation #1: Patient left the ED centimeter AMA form. I called patient due to positive test. Patient reported back to the ED and she stated that her test is always positive due to her hCG levels from prior history of ovarian cancer. She also stated that she had a total hysterectomy. Patient then stated that she was stated to have a CT scan done to rule out bowel obstruction 08/22/18 14:21 ED Medical Decision Making - Lab Data Result diagrams: 08/22/18 10:31 08/22/18 10:31 Laboratory Last Values WBC 3.7 K/mm3 (4.5-11.0) L 08/22/18 10:31 RBC 4.32 M/mm3 (3.65-5.03) 08/22/18 10:31 Hgb 11.3 gm/dl (10.1-14.3) 08/22/18 10:31 Hct 34.8 % (30.3-42.9) 08/22/18 10:31 MCV 81 fl (79-97) 08/22/18 10:31 MCH 26 pg (28-32) L 08/22/18 10:31 MCHC 33 % (30-34) 08/22/18 10:31 RDW 16.0 % (13.2-15.2) H 08/22/18 10:31 Plt Count 232 K/mm3 (140-440) 08/22/18 10:31 Lymph % (Auto) 46.7 % (13.4-35.0) H 08/22/18 10:31 [place] % (Auto) 8.1 % (0.0-7.3) H 08/22/18 10:31 Eos % (Auto) 1.2 % (0.0-4.3) 08/22/18 10:31 Baso % (Auto) 0.6 % (0.0-1.8) 08/22/18 10:31 Lymph # 1.7 K/mm3 (1.2-5.4) 08/22/18 10:31 [place] # 0.3 K/mm3 (0.0-0.8) 08/22/18 10:31 Eos # 0.0 K/mm3 (0.0-0.4) 08/22/18 10:31 Baso # 0.0 K/mm3 (0.0-0.1) 08/22/18 10:31 Seg Neutrophils % 43.4 % (40.0-70.0) 08/22/18 10:31 Seg Neutrophils # 1.6 K/mm3 (1.8-7.7) L 08/22/18 10:31 Sodium 138 mmol/L (137-145) 08/22/18 10:31 Potassium 4.3 mmol/L (3.6-5.0) 08/22/18 10:31 Chloride 106.2 mmol/L (98-107) 08/22/18 10:31 Carbon Dioxide 21 mmol/L (22-30) L 08/22/18 10:31 Anion Gap 15 mmol/L 08/22/18 10:31 BUN 12 mg/dL (7-17) 08/22/18 10:31 Creatinine 0.6 mg/dL (0.7-1.2) L 08/22/18 10:31 Estimated GFR > 60 ml/min 08/22/18 10:31 BUN/Creatinine Ratio 20 % 08/22/18 10:31 Glucose 99 mg/dL (65-100) 08/22/18 10:31 Calcium 8.9 mg/dL (8.4-10.2) 08/22/18 10:31 Total Bilirubin 0.30 mg/dL (0.1-1.2) 08/22/18 10:31 AST 41 units/L (5-40) H 08/22/18 10:31 ALT 9 units/L (7-56) 08/22/18 10:31 Alkaline Phosphatase 60 units/L (35-129) 08/22/18 10:31 Total Protein 7.3 g/dL (6.3-8.2) 08/22/18 10:31 Albumin 4.4 g/dL (3.9-5) 08/22/18 10:31 Albumin/Globulin Ratio 1.5 % 08/22/18 10:31 HCG, Qual Positive (Negative) 08/22/18 10:31 HCG, Quant 8.66 mIU/mL (0-4) H 08/22/18 10:31 - Medical Decision Making 43-year-old female presents with abdominal pain Palpation of the ED area several times. She was called to return back to the ED to get a CT scan. Patient did return but shortly after she left again stating that she needed to go mid up with her family member that outside. Shortly after that the nurse called the patient patient had no answer. Finally she was contacted and she stated that she is not returning to the ED she had a family emergency. Patient was explained that she needed to return to the ED for eval. Patient did not receive complete evaluation and did not return back to the ED. Critical care attestation.: If time is entered above; I have spent that time in minutes in the direct care of this critically ill patient, excluding procedure time. ED Disposition Clinical Impression: Abdominal pain Disposition: DC-07 LEFT AGAINST MED ADVICE Is pt being admited?: No Does the pt Need Aspirin: No Condition: Stable Instructions: Abdominal Pain (ED) Referrals: LISSET MCKEON MD [Primary Care Provider] - 3-5 Days Forms: AMA Form
[2018-08-22 10:50] LABS: Basophils % (Auto) 0.6 % (0.0-1.8); Eosinophils % (Auto) 1.2 % (0.0-4.3); Hematocrit 34.8 % (30.3-42.9); Hemoglobin 11.3 gm/dl (10.1-14.3); Lymphocytes # (Auto) 1.7 K/mm3 (1.2-5.4); Lymphocytes % (Auto) 46.7 % (13.4-35.0); Mean Corpuscular HGB Conc 33 % (30-34); Mean Corpuscular Volume 81 fl (79-97); Monocytes # (Auto) 0.3 K/mm3 (0.0-0.8); Monocytes % (Auto) 8.1 % (0.0-7.3); Platelet Count 232 K/mm3 (140-440); Red Blood Count 4.32 M/mm3 (3.65-5.03)
[2018-08-22] MEDS ORDERED: BENADRYL IV ONE (10:53)
[2018-08-22] MEDS ORDERED: ZOFRAN IV ONE (10:53)
[2018-08-22] MEDS ORDERED: BENTYL IM ONE (10:53)
[2018-08-22] MEDS ORDERED: REGLAN ONE (10:55)
[2018-08-22] MEDS ORDERED: ZOFRAN ONE (10:58)
[2018-08-22] MEDS ORDERED: BENADRYL ONE (10:58)
[2018-08-22 11:13] LABS: Alanine Aminotransferase 9 units/L (7-56); Albumin 4.4 g/dL (3.9-5); BUN/Creatinine Ratio 20; Blood Urea Nitrogen 12 mg/dL (7-17); Calcium 8.9 mg/dL (8.4-10.2); Hemolysis Index 22
[2018-08-22] MEDS ORDERED: MORPHINE IV ONE (13:43)
== END 2018-08-22 15:11 | disposition left against medical advice (07) ==
LOC: ED 08:01
DX: R10.9 Unspecified abdominal pain (principal); K59.00 Constipation, unspecified; R11.10 Vomiting, unspecified; I10 Essential (primary) hypertension; K21.9 Gastro-esophageal reflux disease without esophagitis; J45.909 Unspecified asthma, uncomplicated; K58.9 Irritable bowel syndrome, unspecified; Z79.899 Other long term (current) drug therapy; Z90.49 Acquired absence of other specified parts of digestive tract; Z90.710 Acquired absence of both cervix and uterus; Z88.4 Allergy status to anesthetic agent; Z88.8 Allergy status to other drugs, medicaments and biological substances
CPT/HCPCS: 36415; 80053; 84702; 84703; 85025; 96361; 96374; 96375; 99283; J0500; J1200; J2405; J7030; J2270; J2765

== ENCOUNTER 2018-08-28 07:52 | Emergency (ER) | payer MEDICAID ==
[2018-08-28] MEDS ORDERED: DILAUDID IV ONE ×2 (12:09→15:29)
[2018-08-28] MEDS ORDERED: NACL 0.9% 1000 ML 1,000 ML IV ONE (12:09)
--- NOTE | 2018-08-28 12:12 | Emergency Department Report ---
ED Abdominal Pain HPI - General Chief Complaint: Abdominal Pain Stated Complaint: ABD PAIN/NAUSEA Time Seen by Provider: 08/28/18 12:08 Source: patient Mode of arrival: Ambulatory Limitations: No Limitations - History of Present Illness Initial Comments: This is a 43-year-old -[place] female who presents with abdominal pain and nausea vomiting for one week. Past medical history pancreatitis and gastroparesis. Patient states she came to the emergency room last week and left prior to CT scan. Patient states she hadn't had a bowel movement in the past 6 days. She reports pain is constant sharp in intensity. MD Complaint: abdominal pain Onset/Timin -: week(s) Location: diffuse Radiation: none Migration to: no migration Severity scale (0 -10): 8 Quality: stabbing, sharp Consistency: constant Improves With: nothing Worsens With: eating, vomiting Associated Symptoms: nausea, vomiting, constipation. denies: diarrhea, fever, chills, dysuria, hematemesis, hematochezia, melena, hematuria, anorexia, syncope - Related Data Previous Rx's Medication Instructions Recorded Last Taken Type Promethazine [Phenergan TAB] 25 mg PO Q6HR PRN #20 tab 10/19/17 Unknown Rx oxyCODONE /ACETAMINOPHEN [Percocet 1 - 2 tab PO Q6HR PRN #12 tablet 03/12/18 Unknown Rx 5/325 mg] Amoxicillin/Potassium Clav 1 each PO BID #20 tablet 03/22/18 Unknown Rx [Augmentin 875-125 Tablet] Ondansetron [Zofran Odt] 4 mg PO Q8HR PRN #14 tab.rapdis 03/22/18 Unknown Rx Polymyxin B Sulf/Trimethoprim 2 drops OP TID 7 Days drops 03/22/18 Unknown Rx [Polytrim Eye Drops] traMADol [Ultram] 50 mg PO Q6HR PRN #14 tablet 03/22/18 Unknown Rx Docusate Sodium [Colace] 100 mg PO BID PRN #60 capsule 04/15/18 Unknown Rx Lactulose 10 gm PO DAILY PRN #150 ml 04/15/18 Unknown Rx Sodium Phosphate,[place]-Dibasic 118 ml RC ONCE #1 enema 04/15/18 Unknown Rx [Fleet Enema] Promethazine [Phenergan SUPPOS] 25 mg [place] Q6HR PRN #10 supp.rect 05/07/18 Unknown Rx Promethazine [Phenergan TAB] 25 mg PO Q6HR PRN #10 tab 05/07/18 Unknown Rx Promethazine [Phenergan TAB] 25 mg PO Q6HR PRN #20 tab 07/10/18 Unknown Rx oxyCODONE /ACETAMINOPHEN [Percocet 1 tab PO Q4HR PRN #12 tab 07/10/18 Unknown Rx 5/325] Ondansetron [Zofran Odt] 4 mg PO Q4HR PRN #20 tab.rapdis 08/13/18 Unknown Rx Oxycodone HCl/Acetaminophen 1 each PO Q6HR PRN #6 tablet 08/13/18 Unknown Rx [Percocet 10/325 mg] Promethazine [Phenergan TAB] 25 mg PO Q6HR PRN #20 tab 08/13/18 Unknown Rx Allergies Allergy/AdvReac Type Severity Reaction Status Date / Time codeine Allergy Itching Verified 12/24/16 08:17 fentanyl Allergy Hives Verified 12/24/16 08:17 ketorolac tromethamine Allergy Itching Verified 12/24/16 08:17 [From Toradol] metoclopramide HCl Allergy Hives Verified 12/24/16 08:17 [From Reglan] morphine Allergy Hives Verified 12/24/16 08:17 ondansetron HCl [From Zofran] Allergy Hives Verified 12/24/16 08:17 prochlorperazine edisylate Allergy Hives Verified 12/24/16 08:17 [From Compazine] prochlorperazine maleate Allergy Hives Verified 12/24/16 08:17 [From Compazine] ED Review of Systems ROS: Stated complaint: ABD PAIN/NAUSEA Other details as noted in HPI Constitutional: denies: chills, fever Respiratory: denies: cough, shortness of breath, wheezing Cardiovascular: denies: chest pain, palpitations Gastrointestinal: abdominal pain, nausea, vomiting, constipation. denies: diarrhea Genitourinary: denies: urgency, dysuria, discharge Musculoskeletal: denies: back pain, joint swelling, arthralgia Skin: denies: rash, lesions Neurological: denies: headache, weakness, paresthesias Psychiatric: denies: anxiety, depression ED Past Medical Hx - Past Medical History Hx Hypertension: Yes Hx CVA: No Hx Heart Attack/AMI: No Hx Congestive Heart Failure: No Hx Diabetes: No Hx Deep Vein Thrombosis: No Hx Pulmonary Embolism: No Hx GERD: Yes (Gastroparesis) Hx Liver Disease: No Hx Renal Disease: Yes (renal failure- now in remission) Hx Sickle Cell Disease: No Hx Arthritis: No Hx Headaches / Migraines: No Hx Seizures: No Hx Kidney Stones: Yes Hx Psychiatric Treatment: No Hx Asthma: Yes Hx COPD: No Hx Tuberculosis: No Hx Dementia: No Hx HIV: No Additional medical history: ovarian/lung ca, gastroparesis, IBS, chronic pancreatitis, anemia. (LYMPHOMA LUNG), pyelonephritis, herpes, Small bowel obstruction,. PORT RIGHT CHEST - Surgical History Hx Coronary Stent: No Hx Open Heart Surgery: No Hx Pacemaker: No Hx Internal Defibrillator: No Hx Cholecystectomy: Yes Hx Appendectomy: No Hx Breast Surgery: No Additional Surgical History: fistula repair, lower bowel dissection, stents (in/out), hysterectomy. Power port - Social History Smoking Status: Never Smoker Substance Use Type: None - Medications Home Medications: Home Medications Medication Instructions Recorded Confirmed Last Taken Type Promethazine [Phenergan TAB] 25 mg PO Q6HR PRN #20 tab 10/19/17 Unknown Rx oxyCODONE /ACETAMINOPHEN [Percocet 1 - 2 tab PO Q6HR PRN #12 tablet 03/12/18 Unknown Rx 5/325 mg] Amoxicillin/Potassium Clav 1 each PO BID #20 tablet 03/22/18 Unknown Rx [Augmentin 875-125 Tablet] Ondansetron [Zofran Odt] 4 mg PO Q8HR PRN #14 tab.rapdis 03/22/18 Unknown Rx Polymyxin B Sulf/Trimethoprim 2 drops OP TID 7 Days drops 03/22/18 Unknown Rx [Polytrim Eye Drops] traMADol [Ultram] 50 mg PO Q6HR PRN #14 tablet 03/22/18 Unknown Rx Docusate Sodium [Colace] 100 mg PO BID PRN #60 capsule 04/15/18 Unknown Rx Lactulose 10 gm PO DAILY PRN #150 ml 04/15/18 Unknown Rx Sodium Phosphate,[place]-Dibasic 118 ml RC ONCE #1 enema 04/15/18 Unknown Rx [Fleet Enema] Promethazine [Phenergan SUPPOS] 25 mg [place] Q6HR PRN #10 supp.rect 05/07/18 Unknown Rx Promethazine [Phenergan TAB] 25 mg PO Q6HR PRN #10 tab 05/07/18 Unknown Rx Promethazine [Phenergan TAB] 25 mg PO Q6HR PRN #20 tab 07/10/18 Unknown Rx oxyCODONE /ACETAMINOPHEN [Percocet 1 tab PO Q4HR PRN #12 tab 07/10/18 Unknown Rx 5/325] Ondansetron [Zofran Odt] 4 mg PO Q4HR PRN #20 tab.rapdis 08/13/18 Unknown Rx Oxycodone HCl/Acetaminophen 1 each PO Q6HR PRN #6 tablet 08/13/18 Unknown Rx [Percocet 10/325 mg] Promethazine [Phenergan TAB] 25 mg PO Q6HR PRN #20 tab 08/13/18 Unknown Rx ED Physical Exam - General Limitations: No Limitations General appearance: alert, in no apparent distress - Respiratory Respiratory exam: Present: normal lung sounds bilaterally. Absent: respiratory distress - Cardiovascular Cardiovascular Exam: Present: regular rate, normal rhythm. Absent: systolic murmur, diastolic murmur, rubs, gallop - GI/Abdominal GI/Abdominal exam: Present: soft, tenderness (right upper quadrant and right lower quadrant), normal bowel sounds. Absent: distended, guarding, rebound, rigid, mass, bruit, pulsatile mass, hernia - Back Exam Back exam: Absent: CVA tenderness (R), CVA tenderness (L) - Neurological Exam Neurological exam: Present: alert, oriented X3, normal gait - Psychiatric Psychiatric exam: Present: normal affect, normal mood - Skin Skin exam: Present: warm, dry, intact, normal color. Absent: rash ED Course Vital Signs 08/28/18 08:17 Temperature 98.7 F Pulse Rate 86 Respiratory 18 Rate Blood Pressure 124/82 [Right] O2 Sat by Pulse 100 Oximetry ED Medical Decision Making - Lab Data Result diagrams: 08/28/18 13:47 08/28/18 13:47 Lab Results 08/28/18 08/28/18 08/28/18 Range/Units 13:42 13:47 13:47 WBC 4.3 L (4.5-11.0) K/mm3 RBC 4.31 (3.65-5.03) M/mm3 Hgb 11.3 (10.1-14.3) gm/dl Hct 35.2 (30.3-42.9) % MCV 82 (79-97) fl MCH 26 L (28-32) pg MCHC 32 (30-34) % RDW 16.2 H (13.2-15.2) % Plt Count 190 (140-440) K/mm3 Lymph % (Auto) 35.7 H (13.4-35.0) % [place] % (Auto) 6.5 (0.0-7.3) % Eos % (Auto) 0.7 (0.0-4.3) % Baso % (Auto) 0.6 (0.0-1.8) % Lymph # 1.5 (1.2-5.4) K/mm3 [place] # 0.3 (0.0-0.8) K/mm3 Eos # 0.0 (0.0-0.4) K/mm3 Baso # 0.0 (0.0-0.1) K/mm3 Seg Neutrophils % 56.5 (40.0-70.0) % Seg Neutrophils # 2.4 (1.8-7.7) K/mm3 Sodium 142 (137-145) mmol/L Potassium 3.8 (3.6-5.0) mmol/L Chloride 106.1 (98-107) mmol/L Carbon Dioxide 22 (22-30) mmol/L Anion Gap 18 mmol/L BUN 10 (7-17) mg/dL Creatinine 0.7 (0.7-1.2) mg/dL Estimated GFR > 60 ml/min BUN/Creatinine Ratio 14 % Glucose 82 (65-100) mg/dL Calcium 8.9 (8.4-10.2) mg/dL Total Bilirubin 0.30 (0.1-1.2) mg/dL AST 44 H (5-40) units/L ALT 8 (7-56) units/L Alkaline Phosphatase 62 (35-129) units/L Total Protein 7.5 (6.3-8.2) g/dL Albumin 4.7 (3.9-5) g/dL Albumin/Globulin Ratio 1.7 % Lipase (13-60) units/L Urine Color Yellow (Yellow) Urine Turbidity Clear (Clear) Urine pH 5.0 (5.0-7.0) Ur Specific [place] 1.040 H (1.003-1.030) Urine Protein 30 mg/dl (Negative) mg/dL Urine Glucose (UA) Neg (Negative) mg/dL Urine Ketones 20 (Negative) mg/dL Urine Blood Sm (Negative) Urine Nitrite Neg (Negative) Urine Bilirubin Neg (Negative) Urine Urobilinogen < 2.0 (<2.0) mg/dL Ur Leukocyte Esterase Neg (Negative) Urine WBC (Auto) 4.0 (0.0-6.0) /HPF Urine RBC (Auto) 3.0 (0.0-6.0) /HPF U Epithel Cells (Auto) 3.0 (0-13.0) /HPF Urine Mucus 1+ /HPF 08/28/18 Range/Units 13:47 WBC (4.5-11.0) K/mm3 RBC (3.65-5.03) M/mm3 Hgb (10.1-14.3) gm/dl Hct (30.3-42.9) % MCV (79-97) fl MCH (28-32) pg MCHC (30-34) % RDW (13.2-15.2) % Plt Count (140-440) K/mm3 Lymph % (Auto) (13.4-35.0) % [place] % (Auto) (0.0-7.3) % Eos % (Auto) (0.0-4.3) % Baso % (Auto) (0.0-1.8) % Lymph # (1.2-5.4) K/mm3 [place] # (0.0-0.8) K/mm3 Eos # (0.0-0.4) K/mm3 Baso # (0.0-0.1) K/mm3 Seg Neutrophils % (40.0-70.0) % Seg Neutrophils # (1.8-7.7) K/mm3 Sodium (137-145) mmol/L Potassium (3.6-5.0) mmol/L Chloride (98-107) mmol/L Carbon Dioxide (22-30) mmol/L Anion Gap mmol/L BUN (7-17) mg/dL Creatinine (0.7-1.2) mg/dL Estimated GFR ml/min BUN/Creatinine Ratio % Glucose (65-100) mg/dL Calcium (8.4-10.2) mg/dL Total Bilirubin (0.1-1.2) mg/dL AST (5-40) units/L ALT (7-56) units/L Alkaline Phosphatase (35-129) units/L Total Protein (6.3-8.2) g/dL Albumin (3.9-5) g/dL Albumin/Globulin Ratio % Lipase 54 (13-60) units/L Urine Color (Yellow) Urine Turbidity (Clear) Urine pH (5.0-7.0) Ur Specific [place] (1.003-1.030) Urine Protein (Negative) mg/dL Urine Glucose (UA) (Negative) mg/dL Urine Ketones (Negative) mg/dL Urine Blood (Negative) Urine Nitrite (Negative) Urine Bilirubin (Negative) Urine Urobilinogen (<2.0) mg/dL Ur Leukocyte Esterase (Negative) Urine WBC (Auto) (0.0-6.0) /HPF Urine RBC (Auto) (0.0-6.0) /HPF U Epithel Cells (Auto) (0-13.0) /HPF Urine Mucus /HPF - Radiology Data Radiology results: report reviewed ULTRASOUND ABDOMEN COMPLETE: TECHNIQUE: Transabdominal ultrasound with color Doppler interrogation. HISTORY: Right sided abdominal pain. COMPARISON: none. FINDINGS: LIVER: Normal. BILIARY SYSTEM: The gallbladder is not visualized, correlate for history of cholecystectomy. PANCREAS: Normal. SPLEEN: Normal. KIDNEYS: Normal. AORTA/IVC: Normal. ASCITES: None. IMPRESSION: Unremarkable exam. - Medical Decision Making This is a 43 y.o. female that presents with nausea, vomiting, and abdominal pain for one week. Patient is stable and was examined by me. Vitals stable. Obtained CMP, CBC, lipase, & UA. All unremarkable. US of abdomen essentially negative sonogram of abdomen. Given normal saline, Benadryl, and Dilaudid. Patient states she had a bowel movement after ultrasound. Referral to a gastrologist for continued care. Discussed plan with patient and agreed to plan. No further questions noted by the patient. Discharged home in stable condition. Follow up with PCP in 2-3 days. Critical care attestation.: If time is entered above; I have spent that time in minutes in the direct care of this critically ill patient, excluding procedure time. ED Disposition Clinical Impression: Nausea and vomiting in adult, Acute gastroenteritis Abdominal pain Qualifiers: Abdominal location: generalized Qualified Code(s): R10.84 - Generalized abdominal pain Disposition: DC-01 TO HOME OR SELFCARE Is pt being admited?: No Does the pt Need Aspirin: No Condition: Stable Instructions: Abdominal Pain (ED), Gastroenteritis (ED) Additional Instructions: Frequent hand washing is important to reduce spread. Prompt disinfection of contaminated surfaces with household chlorine bleach- based professor of exercise science and washing of soiled clothing and bedding should be advised. If food or water is thought to be contaminated, it should be avoided. Increase fluid intake. Drinks high in sugars such as carbonated soft drinks, fruit juice, and highly sugared liquids should be avoided. Referrals: [facility] [Outside] - 3-5 Days [facility] [Outside] - 3-5 Days [facility] LISSET WAL[facility] MD [Primary Care Provider] - 3-5 Days [facility] [Provider Group] - 3-5 Days Time of Disposition: 15:35
[2018-08-28] MEDS ORDERED: BENADRYL IV ONE ×2 (12:25→15:29)
[2018-08-28 14:01] LABS: Bilirubin,Urine NEG (Negative); Blood,Urine SM (Negative); Color,Urine Yellow (Yellow); Mucus,Urine 1+ /HPF; Urobilinogen,Urine < 2.0 mg/dL (<2.0)
[2018-08-28 14:08] LABS: Basophils % (Auto) 0.6 % (0.0-1.8); Eosinophils % (Auto) 0.7 % (0.0-4.3); Hematocrit 35.2 % (30.3-42.9); Hemoglobin 11.3 gm/dl (10.1-14.3); Lymphocytes # (Auto) 1.5 K/mm3 (1.2-5.4); Lymphocytes % (Auto) 35.7 % (13.4-35.0); Mean Corpuscular HGB Conc 32 % (30-34); Mean Corpuscular Volume 82 fl (79-97); Monocytes # (Auto) 0.3 K/mm3 (0.0-0.8); Monocytes % (Auto) 6.5 % (0.0-7.3); Platelet Count 190 K/mm3 (140-440); Red Blood Count 4.31 M/mm3 (3.65-5.03); Red Cell Distribution Width 16.2 % (13.2-15.2)
[2018-08-28 14:30] LABS: Alanine Aminotransferase 8 units/L (7-56); Albumin 4.7 g/dL (3.9-5); BUN/Creatinine Ratio 14; Blood Urea Nitrogen 10 mg/dL (7-17); Calcium 8.9 mg/dL (8.4-10.2); Hemolysis Index 8
--- NOTE | 2018-08-28 15:05 | Ultrasound Report ---
ULTRASOUND ABDOMEN COMPLETE: TECHNIQUE: Transabdominal ultrasound with color Doppler interrogation. HISTORY: Right sided abdominal pain. COMPARISON: none. FINDINGS: LIVER: Normal. BILIARY SYSTEM: The gallbladder is not visualized, correlate for history of cholecystectomy. PANCREAS: Normal. SPLEEN: Normal. KIDNEYS: Normal. AORTA/IVC: Normal. ASCITES: None. IMPRESSION: Unremarkable exam.
[2018-08-28 15:27] VITALS: BP 124/84
[2018-08-28] MEDS ORDERED: BENADRYL ONE (15:33)
== END 2018-08-28 16:05 | disposition home or self-care (01) ==
LOC: ED 07:52
DX: K52.9 Noninfective gastroenteritis and colitis, unspecified (principal); I10 Essential (primary) hypertension; K21.9 Gastro-esophageal reflux disease without esophagitis; J45.909 Unspecified asthma, uncomplicated; K58.9 Irritable bowel syndrome, unspecified; Z86.2 Personal history of diseases of the blood and blood-forming organs and certain disorders involving the immune mechanism; Z90.49 Acquired absence of other specified parts of digestive tract; Z90.710 Acquired absence of both cervix and uterus; Z79.899 Other long term (current) drug therapy; Z88.1 Allergy status to other antibiotic agents; Z88.6 Allergy status to analgesic agent; Z88.8 Allergy status to other drugs, medicaments and biological substances
CPT/HCPCS: 36415; 76700; 80053; 81001; 83690; 85025; 96361; 96374; 96375; 96376; 99284; J1170; J1200; J7030

== ENCOUNTER 2018-09-08 08:43 | Emergency (ER) | payer MEDICAID ==
[2018-09-08] MEDS ORDERED: TESSALON PERLES PO ONE (09:29)
[2018-09-08] MEDS ORDERED: DILAUDID IV ONE ×2 (09:29→11:36)
[2018-09-08] MEDS ORDERED: ZOFRAN IV ONE ×2 (09:29→11:36)
[2018-09-08] MEDS ORDERED: NACL 0.9% 1000 ML 1,000 ML IV ONE ×2 (09:29→12:23)
[2018-09-08] MEDS ORDERED: DUONEB *Not for PRN Use IH ONE (09:31)
[2018-09-08] MEDS ORDERED: SOLU-Medrol IV ONE (09:31)
--- NOTE | 2018-09-08 09:35 | Emergency Department Report ---
ED N/V/D HPI - General Chief complaint: Upper Respiratory Infection Stated complaint: COUGH Time Seen by Provider: 09/08/18 09:13 Source: patient, EMS, old records reviewed (multiple visits for abdominal pain) Mode of arrival: Stretcher Limitations: No Limitations - History of Present Illness Initial comments: 43-year-old female with a past medical history gastroparesis, recurrent pancreatitis, kidney stones, hypertension, and multiple abdominal surgeries presents to the Hospital complaining of some nausea and vomiting with PO intolerance since 3 AM. Patient was recently diagnosed with pneumonia after a chest x-ray by her primary care doctor office. She was prescribed Augmentin, Hydrocodone/homatropine cough syrup, and inhaler. Patient had a significant coughing with intermittent wheezing. She states she started to also have bilious vomiting since this a.m. and upper abdominal pain consistent with previous bouts of pancreatitis. Patient is also having upper abdominal soreness secondary to repeated coughing. No reports of fevers. - Related Data Previous Rx's Medication Instructions Recorded Last Taken Type Promethazine [Phenergan TAB] 25 mg PO Q6HR PRN #20 tab 10/19/17 Unknown Rx Amoxicillin/Potassium Clav 1 each PO BID #20 tablet 03/22/18 Unknown Rx [Augmentin 875-125 Tablet] Ondansetron [Zofran Odt] 4 mg PO Q8HR PRN #14 tab.rapdis 03/22/18 Unknown Rx Polymyxin B Sulf/Trimethoprim 2 drops OP TID 7 Days drops 03/22/18 Unknown Rx [Polytrim Eye Drops] traMADol [Ultram] 50 mg PO Q6HR PRN #14 tablet 03/22/18 Unknown Rx Docusate Sodium [Colace] 100 mg PO BID PRN #60 capsule 04/15/18 Unknown Rx Lactulose 10 gm PO DAILY PRN #150 ml 04/15/18 Unknown Rx Sodium Phosphate,Iroquois-Dibasic 118 ml RC ONCE #1 enema 04/15/18 Unknown Rx [Fleet Enema] Promethazine [Phenergan SUPPOS] 25 mg SC Q6HR PRN #10 supp.rect 05/07/18 Unknown Rx Promethazine [Phenergan] 25 mg PO Q6HR PRN #10 tab 05/07/18 Unknown Rx Promethazine [Phenergan TAB] 25 mg PO Q6HR PRN #20 tab 07/10/18 Unknown Rx oxyCODONE /ACETAMINOPHEN [Percocet 1 tab PO Q4HR PRN #12 tab 07/10/18 Unknown Rx 5/325] Ondansetron [Zofran Odt] 4 mg PO Q4HR PRN #20 tab.rapdis 08/13/18 Unknown Rx Oxycodone HCl/Acetaminophen 1 each PO Q6HR PRN #6 tablet 08/13/18 Unknown Rx [Percocet 10/325 mg] Promethazine [Phenergan TAB] 25 mg PO Q6HR PRN #20 tab 08/13/18 Unknown Rx Benzonatate [Tessalon Perles] 100 mg PO Q8HR PRN #30 capsule 09/08/18 Unknown Rx Promethazine [Phenergan] 25 mg PO Q6HR PRN #20 tab 09/08/18 Unknown Rx oxyCODONE /ACETAMINOPHEN [Percocet 1 tab PO Q6HR PRN #10 tablet 09/08/18 Unknown Rx 5/325 mg] Allergies Allergy/AdvReac Type Severity Reaction Status Date / Time codeine Allergy Itching Verified 12/24/16 08:17 fentanyl Allergy Hives Verified 12/24/16 08:17 ketorolac tromethamine Allergy Itching Verified 12/24/16 08:17 [From Toradol] metoclopramide HCl Allergy Hives Verified 12/24/16 08:17 [From Reglan] morphine Allergy Hives Verified 12/24/16 08:17 ondansetron HCl [From Zofran] Allergy Hives Verified 12/24/16 08:17 prochlorperazine edisylate Allergy Hives Verified 12/24/16 08:17 [From Compazine] prochlorperazine maleate Allergy Hives Verified 12/24/16 08:17 [From Compazine] ED Review of Systems ROS: Stated complaint: COUGH Other details as noted in HPI Comment: All other systems reviewed and negative ED Past Medical Hx - Past Medical History Hx Hypertension: Yes Hx CVA: No Hx Heart Attack/AMI: No Hx Congestive Heart Failure: No Hx Diabetes: No Hx Deep Vein Thrombosis: No Hx Pulmonary Embolism: No Hx GERD: Yes (Gastroparesis) Hx Liver Disease: No Hx Renal Disease: Yes (renal failure- now in remission) Hx Sickle Cell Disease: No Hx Arthritis: No Hx Headaches / Migraines: No Hx Seizures: No Hx Kidney Stones: Yes Hx Psychiatric Treatment: No Hx Asthma: Yes Hx COPD: No Hx Tuberculosis: No Hx Dementia: No Hx HIV: No Additional medical history: ovarian/lung ca, gastroparesis, IBS, chronic pancreatitis, anemia. (LYMPHOMA LUNG), pyelonephritis, herpes, Small bowel obstruction,. PORT RIGHT CHEST - Surgical History Hx Coronary Stent: No Hx Open Heart Surgery: No Hx Pacemaker: No Hx Internal Defibrillator: No Hx Cholecystectomy: Yes Hx Appendectomy: No Hx Breast Surgery: No Additional Surgical History: fistula repair, lower bowel dissection, stents (in/out), hysterectomy. Power port - Social History Smoking Status: Current Every Day Smoker Substance Use Type: None - Medications Home Medications: Home Medications Medication Instructions Recorded Confirmed Last Taken Type Promethazine [Phenergan TAB] 25 mg PO Q6HR PRN #20 tab 10/19/17 Unknown Rx Amoxicillin/Potassium Clav 1 each PO BID #20 tablet 03/22/18 Unknown Rx [Augmentin 875-125 Tablet] Ondansetron [Zofran Odt] 4 mg PO Q8HR PRN #14 tab.rapdis 03/22/18 Unknown Rx Polymyxin B Sulf/Trimethoprim 2 drops OP TID 7 Days drops 03/22/18 Unknown Rx [Polytrim Eye Drops] traMADol [Ultram] 50 mg PO Q6HR PRN #14 tablet 03/22/18 Unknown Rx Docusate Sodium [Colace] 100 mg PO BID PRN #60 capsule 04/15/18 Unknown Rx Lactulose 10 gm PO DAILY PRN #150 ml 04/15/18 Unknown Rx Sodium Phosphate,Iroquois-Dibasic 118 ml RC ONCE #1 enema 04/15/18 Unknown Rx [Fleet Enema] Promethazine [Phenergan SUPPOS] 25 mg SC Q6HR PRN #10 supp.rect 05/07/18 Unknown Rx Promethazine [Phenergan] 25 mg PO Q6HR PRN #10 tab 05/07/18 Unknown Rx Promethazine [Phenergan TAB] 25 mg PO Q6HR PRN #20 tab 07/10/18 Unknown Rx oxyCODONE /ACETAMINOPHEN [Percocet 1 tab PO Q4HR PRN #12 tab 07/10/18 Unknown Rx 5/325] Ondansetron [Zofran Odt] 4 mg PO Q4HR PRN #20 tab.rapdis 08/13/18 Unknown Rx Oxycodone HCl/Acetaminophen 1 each PO Q6HR PRN #6 tablet 08/13/18 Unknown Rx [Percocet 10/325 mg] Promethazine [Phenergan TAB] 25 mg PO Q6HR PRN #20 tab 08/13/18 Unknown Rx Benzonatate [Tessalon Perles] 100 mg PO Q8HR PRN #30 capsule 09/08/18 Unknown Rx Promethazine [Phenergan] 25 mg PO Q6HR PRN #20 tab 09/08/18 Unknown Rx oxyCODONE /ACETAMINOPHEN [Percocet 1 tab PO Q6HR PRN #10 tablet 09/08/18 Unknown Rx 5/325 mg] ED Physical Exam - General Limitations: No Limitations - Other Other exam information: General: No limitations, patient is alert in no acute distress Head exam: Atraumatic, normocephalic Eyes exam: Normal appearance, nonicteric sclerae ENT: Moist mucous membrane, normal oropharynx Neck exam: Normal inspection, full range of motion, no meningismus nontender Respiratory exam: Frequent cough on examination with expiratory wheeze and cough exhalation. No tachypnea or accessory muscle use Cardiovascular: Normal rate and rhythm, normal heart sounds Abdomen: Soft, nondistended, lower abdominal surgical scar is noted. Diffuse tenderness greatest in the epigastric area. Extremity: Full range of motion normal inspection no deformity Back: Normal Inspection, full range of motion, no tenderness Neurologic: Alert, oriented x3, cranial nerves intact, no motor or sensory deficit Psychiatric: normal affect, normal mood Skin: Warm, dry, intact ED Course Vital Signs 09/08/18 09/08/18 09/08/18 09:08 09:09 09:41 Temperature 99.8 F H Pulse Rate 94 H Pulse Rate [ 92 H Posterior Bilateral Throughout] Respiratory 19 18 Rate Respiratory 20 Rate [Posterior Bilateral Throughout] Blood Pressure 123/84 [Left] O2 Sat by Pulse 98 98 Oximetry 09/08/18 09/08/18 10:03 11:54 Temperature 99.2 F Pulse Rate 83 Pulse Rate [ 90 Posterior Bilateral Throughout] Respiratory 18 Rate Respiratory 20 Rate [Posterior Bilateral Throughout] Blood Pressure 140/81 [Left] O2 Sat by Pulse 99 Oximetry ED Medical Decision Making - Lab Data Result diagrams: 09/08/18 Unknown 09/08/18 Unknown Lab Results 09/08/18 09/08/18 09/08/18 Range/Units 12:09 Unknown Unknown WBC 3.0 L (4.5-11.0) K/mm3 RBC 4.23 (3.65-5.03) M/mm3 Hgb 11.1 (10.1-14.3) gm/dl Hct 34.2 (30.3-42.9) % MCV 81 (79-97) fl MCH 26 L (28-32) pg MCHC 32 (30-34) % RDW 16.6 H (13.2-15.2) % Plt Count 179 (140-440) K/mm3 Lymph % (Auto) 37.1 H (13.4-35.0) % Iroquois % (Auto) 12.0 H (0.0-7.3) % Eos % (Auto) 0.9 (0.0-4.3) % Baso % (Auto) 0.7 (0.0-1.8) % Lymph # 1.1 L (1.2-5.4) K/mm3 [place]quois # 0.4 (0.0-0.8) K/mm3 Eos # 0.0 (0.0-0.4) K/mm3 Baso # 0.0 (0.0-0.1) K/mm3 Seg Neutrophils % 49.3 (40.0-70.0) % Seg Neutrophils # 1.5 L (1.8-7.7) K/mm3 Sodium 138 (137-145) mmol/L Potassium 4.2 (3.6-5.0) mmol/L Chloride 101.3 (98-107) mmol/L Carbon Dioxide 24 (22-30) mmol/L Anion Gap 17 mmol/L BUN 8 (7-17) mg/dL Creatinine 0.6 L (0.7-1.2) mg/dL Estimated GFR > 60 ml/min BUN/Creatinine Ratio 13 % Glucose 83 (65-100) mg/dL Calcium 8.6 (8.4-10.2) mg/dL Total Bilirubin 0.20 (0.1-1.2) mg/dL AST 45 H (5-40) units/L ALT 10 (7-56) units/L Alkaline Phosphatase 60 (35-129) units/L Total Protein 7.0 (6.3-8.2) g/dL Albumin 4.2 (3.9-5) g/dL Albumin/Globulin Ratio 1.5 % Lipase 32 (13-60) units/L HCG, Quant (0-4) mIU/mL Urine Color Yellow (Yellow) Urine Turbidity Cloudy (Clear) Urine pH 6.0 (5.0-7.0) Ur Specific Graham 1.015 (1.003-1.030) Urine Protein <15 mg/dl (Negative) mg/dL Urine Glucose (UA) Neg (Negative) mg/dL Urine Ketones Tr (Negative) mg/dL Urine Blood Sm (Negative) Urine Nitrite Neg (Negative) Urine Bilirubin Neg (Negative) Urine Urobilinogen < 2.0 (<2.0) mg/dL Ur Leukocyte Esterase Neg (Negative) Urine WBC (Auto) 1.0 (0.0-6.0) /HPF Urine RBC (Auto) 10.0 (0.0-6.0) /HPF U Epithel Cells (Auto) 35.0 H (0-13.0) /HPF Urine Bacteria (Auto) 1+ (Negative) /HPF Urine Mucus Few /HPF 09/08/18 Range/Units Unknown WBC (4.5-11.0) K/mm3 RBC (3.65-5.03) M/mm3 Hgb (10.1-14.3) gm/dl Hct (30.3-42.9) % MCV (79-97) fl MCH (28-32) pg MCHC (30-34) % RDW (13.2-15.2) % Plt Count (140-440) K/mm3 Lymph % (Auto) (13.4-35.0) % Iroquois % (Auto) (0.0-7.3) % Eos % (Auto) (0.0-4.3) % Baso % (Auto) (0.0-1.8) % Lymph # (1.2-5.4) K/mm3 Iroquois # (0.0-0.8) K/mm3 Eos # (0.0-0.4) K/mm3 Baso # (0.0-0.1) K/mm3 Seg Neutrophils % (40.0-70.0) % Seg Neutrophils # (1.8-7.7) K/mm3 Sodium (137-145) mmol/L Potassium (3.6-5.0) mmol/L Chloride (98-107) mmol/L Carbon Dioxide (22-30) mmol/L Anion Gap mmol/L BUN (7-17) mg/dL Creatinine (0.7-1.2) mg/dL Estimated GFR ml/min BUN/Creatinine Ratio % Glucose (65-100) mg/dL Calcium (8.4-10.2) mg/dL Total Bilirubin (0.1-1.2) mg/dL AST (5-40) units/L ALT (7-56) units/L Alkaline Phosphatase (35-129) units/L Total Protein (6.3-8.2) g/dL Albumin (3.9-5) g/dL Albumin/Globulin Ratio % Lipase (13-60) units/L HCG, Quant 8.58 H (0-4) mIU/mL Urine Color (Yellow) Urine Turbidity (Clear) Urine pH (5.0-7.0) Ur Specific Graham (1.003-1.030) Urine Protein (Negative) mg/dL Urine Glucose (UA) (Negative) mg/dL Urine Ketones (Negative) mg/dL Urine Blood (Negative) Urine Nitrite (Negative) Urine Bilirubin (Negative) Urine Urobilinogen (<2.0) mg/dL Ur Leukocyte Esterase (Negative) Urine WBC (Auto) (0.0-6.0) /HPF Urine RBC (Auto) (0.0-6.0) /HPF U Epithel Cells (Auto) (0-13.0) /HPF Urine Bacteria (Auto) (Negative) /HPF Urine Mucus /HPF - Radiology Data Radiology results: report reviewed - Medical Decision Making labs unremarkable chronically elevated hcg pt feels better with ED tx plan to d/c home with additional meds - Differential Diagnosis pneumonia, bronchitis, muscle strain, pancreatitis, chronic pain Critical Care Time: No Critical care attestation.: If time is entered above; I have spent that time in minutes in the direct care of this critically ill patient, excluding procedure time. ED Disposition Clinical Impression: Gastroparesis, Cough Disposition: TO HOME OR SELFCARE Is pt being admited?: No Does the pt Need Aspirin: No Condition: Stable Instructions: Community-acquired Pneumonia (ED), Acute Nausea and Vomiting (ED), Chronic Pain (ED) Additional Instructions: Take the medication as prescribed. Follow up with your doctor or the clinic/doctor provided. Return if symptoms worsen as indicated by your discharge instructions Prescriptions: oxyCODONE /ACETAMINOPHEN [Percocet 5/325 mg] 1 tab PO Q6HR PRN #10 tablet PRN Reason: Pain Promethazine [Phenergan] 25 mg PO Q6HR PRN #20 tab PRN Reason: Nausea Benzonatate [Tessalon Perles] 100 mg PO Q8HR PRN #30 capsule PRN Reason: Cough Referrals: MAGDA GRAYSON [facility] ARCHITECT-C [Primary Care Provider] - 3-5 Days Time of Disposition: 13:06
[2018-09-08] MEDS ORDERED: BENADRYL IV ONE (10:08)
[2018-09-08 10:10] LABS: Basophils % (Auto) 0.7 % (0.0-1.8); Eosinophils % (Auto) 0.9 % (0.0-4.3); Hematocrit 34.2 % (30.3-42.9); Hemoglobin 11.1 gm/dl (10.1-14.3); Lymphocytes # (Auto) 1.1 K/mm3 (1.2-5.4); Lymphocytes % (Auto) 37.1 % (13.4-35.0); Mean Corpuscular HGB Conc 32 % (30-34); Mean Corpuscular Volume 81 fl (79-97); Monocytes # (Auto) 0.4 K/mm3 (0.0-0.8); Platelet Count 179 K/mm3 (140-440); Red Blood Count 4.23 M/mm3 (3.65-5.03); Red Cell Distribution Width 16.6 % (13.2-15.2)
[2018-09-08] MEDS ORDERED: BENADRYL ONE (10:12)
[2018-09-08 10:47] LABS: Alanine Aminotransferase 10 units/L (7-56); Albumin 4.2 g/dL (3.9-5); BUN/Creatinine Ratio 13; Blood Urea Nitrogen 8 mg/dL (7-17); Calcium 8.6 mg/dL (8.4-10.2); Hemolysis Index 48
[2018-09-08 11:55] VITALS: BP 140/81
[2018-09-08 12:29] LABS: Bacteria,Urine 1+ /HPF (Negative); Bilirubin,Urine NEG (Negative); Blood,Urine SM (Negative); Color,Urine Yellow (Yellow); Mucus,Urine FEW /HPF; Protein,Urine <15 mg/dL mg/dL (Negative); Urobilinogen,Urine < 2.0 mg/dL (<2.0)
== END 2018-09-08 13:54 | disposition home or self-care (01) ==
LOC: ED 08:43
DX: K31.84 Gastroparesis (principal); R05 Cough; I10 Essential (primary) hypertension; K21.9 Gastro-esophageal reflux disease without esophagitis; J45.909 Unspecified asthma, uncomplicated; F17.200 Nicotine dependence, unspecified, uncomplicated
CPT/HCPCS: 36415; 80053; 81001; 83690; 84702; 85025; 94640; 96361; 96374; 96375; 96376; 99284; J1170; J1200; J2405; J2930; J7030

== ENCOUNTER 2018-09-27 08:11 | Emergency (ER) | payer MEDICAID ==
[2018-09-27] MEDS ORDERED: BENADRYL IV ONE ×2 (09:12→12:54)
[2018-09-27] MEDS ORDERED: DILAUDID IV ONE ×3 (09:12→14:05)
[2018-09-27] MEDS ORDERED: PROTONIX IV ONE (09:13)
[2018-09-27] MEDS ORDERED: NACL 0.9% 1000 ML 1,000 ML IV ONE (09:13)
--- NOTE | 2018-09-27 09:55 | Emergency Department Report ---
ED Abdominal Pain HPI - General Chief Complaint: Abdominal Pain Stated Complaint: SEVERE ABD PAIN/BACK PAIN/VOMIT Time Seen by Provider: 09/27/18 08:59 Source: patient Mode of arrival: Ambulatory Limitations: No Limitations - History of Present Illness Initial Comments: 43-year-old female presents to this facility multiple times in the past not infrequently for abdominal pain. She has very complex surgical history. She states she has a history of ovarian carcinoma as well as cholecystectomy. She also tells me she had a biliary stent which passed into her bowel and eventually caused a bowel perforation followed by surgery and then anastomosis of her bowel. She has had previous episodes of bowel obstruction. She reports to me the last time she had an NG tube inserted was about 8 months ago she states that this facility. I have not located that record yet. She is here for a concern for bowel obstruction associated with abdominal pain and no bowel movement for 8 days. The patient admits that she went to [facility] within the past few days. She was seen in the emergency department. She states that she did not have a CT done at that time. She stated that her symptoms improved and she was able to leave. She denies fever or chills. MD Complaint: abdominal pain Location: LLQ, RLQ Radiation: none Migration to: no migration Severity: moderate, severe Quality: aching Consistency: intermittent Improves With: nothing Worsens With: nothing Context: other (history of bowel obstructions) Associated Symptoms: nausea, constipation. denies: fever - Related Data Previous Rx's Medication Instructions Recorded Last Taken Type Promethazine [Phenergan TAB] 25 mg PO Q6HR PRN #20 tab 10/19/17 Unknown Rx Amoxicillin/Potassium Clav 1 each PO BID #20 tablet 03/22/18 Unknown Rx [Augmentin 875-125 Tablet] Ondansetron [Zofran Odt] 4 mg PO Q8HR PRN #14 tab.rapdis 03/22/18 Unknown Rx Polymyxin B Sulf/Trimethoprim 2 drops OP TID 7 Days drops 03/22/18 Unknown Rx [Polytrim Eye Drops] traMADol [Ultram] 50 mg PO Q6HR PRN #14 tablet 03/22/18 Unknown Rx Docusate Sodium [Colace] 100 mg PO BID PRN #60 capsule 04/15/18 Unknown Rx Lactulose 10 gm PO DAILY PRN #150 ml 04/15/18 Unknown Rx Sodium Phosphate,Lynn-Dibasic 118 ml RC ONCE #1 enema 04/15/18 Unknown Rx [Fleet Enema] Promethazine [Phenergan SUPPOS] 25 mg PA Q6HR PRN #10 supp.rect 05/07/18 Unknown Rx Promethazine [Phenergan] 25 mg PO Q6HR PRN #10 tab 05/07/18 Unknown Rx Promethazine [Phenergan TAB] 25 mg PO Q6HR PRN #20 tab 07/10/18 Unknown Rx oxyCODONE /ACETAMINOPHEN [Percocet 1 tab PO Q4HR PRN #12 tab 07/10/18 Unknown Rx 5/325] Ondansetron [Zofran Odt] 4 mg PO Q4HR PRN #20 tab.rapdis 08/13/18 Unknown Rx Oxycodone HCl/Acetaminophen 1 each PO Q6HR PRN #6 tablet 08/13/18 Unknown Rx [Percocet 10/325 mg] Promethazine [Phenergan TAB] 25 mg PO Q6HR PRN #20 tab 08/13/18 Unknown Rx Benzonatate [Tessalon Perles] 100 mg PO Q8HR PRN #30 capsule 09/08/18 Unknown Rx Promethazine [Phenergan] 25 mg PO Q6HR PRN #20 tab 09/08/18 Unknown Rx oxyCODONE /ACETAMINOPHEN [Percocet 1 tab PO Q6HR PRN #10 tablet 09/08/18 Unknown Rx 5/325 mg] ALBUTEROL Inhaler(NF) [VENTOLIN 2 puff IH Q4HRT #1 inha 09/13/18 Unknown Rx Inhaler(NF)] Amoxicillin/Potassium Clav 1 each PO BID #14 tablet 09/13/18 Unknown Rx [Augmentin 875-125 Tablet] Promethazine HCl [Phenergan SUPPOS] 25 mg RC Q8HR PRN #10 supp.rect 09/13/18 Unknown Rx Promethazine [Phenergan] 25 mg PO Q8HR PRN #10 tab 09/13/18 Unknown Rx Promethazine [Phenergan] 25 mg PA Q6HR PRN #10 supp.rect 09/13/18 Unknown Rx oxyCODONE /ACETAMINOPHEN [Percocet 1 tab PO Q4HR #10 tab 09/13/18 Unknown Rx 5/325] predniSONE [Deltasone] 20 mg PO QDAY #5 tab 09/13/18 Unknown Rx Allergies Allergy/AdvReac Type Severity Reaction Status Date / Time codeine Allergy Itching Verified 09/13/18 07:52 fentanyl Allergy Hives Verified 09/13/18 07:52 ketorolac tromethamine Allergy Itching Verified 09/13/18 07:52 [From Toradol] metoclopramide HCl Allergy Hives Verified 09/13/18 07:52 [From Reglan] morphine Allergy Hives Verified 09/13/18 07:52 ondansetron HCl [From Zofran] Allergy Hives Verified 12/24/16 08:17 prochlorperazine edisylate Allergy Hives Verified 09/13/18 07:52 [From Compazine] prochlorperazine maleate Allergy Hives Verified 09/13/18 07:52 [From Compazine] ED Review of Systems ROS: Stated complaint: SEVERE ABD PAIN/BACK PAIN/VOMIT Other details as noted in HPI Constitutional: denies: chills, fever Eyes: denies: eye pain, eye discharge, vision change ENT: denies: ear pain, throat pain Respiratory: denies: cough, shortness of breath, wheezing Cardiovascular: denies: chest pain, palpitations Endocrine: no symptoms reported Gastrointestinal: abdominal pain, nausea, constipation. denies: diarrhea Genitourinary: denies: urgency, dysuria, discharge Musculoskeletal: denies: back pain, joint swelling, arthralgia Skin: denies: rash, lesions Neurological: denies: headache, weakness, paresthesias Psychiatric: denies: anxiety, depression Hematological/Lymphatic: denies: easy bleeding, easy bruising ED Past Medical Hx - Past Medical History Previous Medical History?: Yes Hx Hypertension: Yes Hx CVA: No Hx Heart Attack/AMI: No Hx Congestive Heart Failure: No Hx Diabetes: No Hx Deep Vein Thrombosis: No Hx Pulmonary Embolism: No Hx GERD: Yes (Gastroparesis) Hx Liver Disease: No Hx Renal Disease: Yes (renal failure- now in remission) Hx Sickle Cell Disease: No Hx Arthritis: No Hx Headaches / Migraines: No Hx Seizures: No Hx Kidney Stones: Yes Hx Psychiatric Treatment: No Hx Asthma: Yes Hx COPD: No Hx Tuberculosis: No Hx Dementia: No Hx HIV: No Additional medical history: ovarian/lung ca, gastroparesis, IBS, chronic pancreatitis, anemia. (LYMPHOMA LUNG), pyelonephritis, herpes, Small bowel obstruction,. PORT RIGHT CHEST - Surgical History Past Surgical History?: Yes Hx Coronary Stent: No Hx Open Heart Surgery: No Hx Pacemaker: No Hx Internal Defibrillator: No Hx Cholecystectomy: Yes Hx Appendectomy: No Hx Breast Surgery: No Additional Surgical History: fistula repair, lower bowel dissection, stents (in/out), hysterectomy. Power port - Social History Smoking Status: Never Smoker Substance Use Type: None - Medications Home Medications: Home Medications Medication Instructions Recorded Confirmed Last Taken Type Promethazine [Phenergan TAB] 25 mg PO Q6HR PRN #20 tab 10/19/17 Unknown Rx Amoxicillin/Potassium Clav 1 each PO BID #20 tablet 03/22/18 Unknown Rx [Augmentin 875-125 Tablet] Ondansetron [Zofran Odt] 4 mg PO Q8HR PRN #14 tab.rapdis 03/22/18 Unknown Rx Polymyxin B Sulf/Trimethoprim 2 drops OP TID 7 Days drops 03/22/18 Unknown Rx [Polytrim Eye Drops] traMADol [Ultram] 50 mg PO Q6HR PRN #14 tablet 03/22/18 Unknown Rx Docusate Sodium [Colace] 100 mg PO BID PRN #60 capsule 04/15/18 Unknown Rx Lactulose 10 gm PO DAILY PRN #150 ml 04/15/18 Unknown Rx Sodium Phosphate,Lynn-Dibasic 118 ml RC ONCE #1 enema 04/15/18 Unknown Rx [Fleet Enema] Promethazine [Phenergan SUPPOS] 25 mg PA Q6HR PRN #10 supp.rect 05/07/18 Unknown Rx Promethazine [Phenergan] 25 mg PO Q6HR PRN #10 tab 05/07/18 Unknown Rx Promethazine [Phenergan TAB] 25 mg PO Q6HR PRN #20 tab 07/10/18 Unknown Rx oxyCODONE /ACETAMINOPHEN [Percocet 1 tab PO Q4HR PRN #12 tab 07/10/18 Unknown Rx 5/325] Ondansetron [Zofran Odt] 4 mg PO Q4HR PRN #20 tab.rapdis 08/13/18 Unknown Rx Oxycodone HCl/Acetaminophen 1 each PO Q6HR PRN #6 tablet 08/13/18 Unknown Rx [Percocet 10/325 mg] Promethazine [Phenergan TAB] 25 mg PO Q6HR PRN #20 tab 08/13/18 Unknown Rx Benzonatate [Tessalon Perles] 100 mg PO Q8HR PRN #30 capsule 09/08/18 Unknown Rx Promethazine [Phenergan] 25 mg PO Q6HR PRN #20 tab 09/08/18 Unknown Rx oxyCODONE /ACETAMINOPHEN [Percocet 1 tab PO Q6HR PRN #10 tablet 09/08/18 Unknown Rx 5/325 mg] ALBUTEROL Inhaler(NF) [VENTOLIN 2 puff IH Q4HRT #1 inha 09/13/18 Unknown Rx Inhaler(NF)] Amoxicillin/Potassium Clav 1 each PO BID #14 tablet 09/13/18 Unknown Rx [Augmentin 875-125 Tablet] Promethazine HCl [Phenergan SUPPOS] 25 mg RC Q8HR PRN #10 supp.rect 09/13/18 Unknown Rx Promethazine [Phenergan] 25 mg PO Q8HR PRN #10 tab 09/13/18 Unknown Rx Promethazine [Phenergan] 25 mg PA Q6HR PRN #10 supp.rect 09/13/18 Unknown Rx oxyCODONE /ACETAMINOPHEN [Percocet 1 tab PO Q4HR #10 tab 09/13/18 Unknown Rx 5/325] predniSONE [Deltasone] 20 mg PO QDAY #5 tab 09/13/18 Unknown Rx ED Physical Exam - General Limitations: No Limitations General appearance: alert, in no apparent distress - Head Head exam: Present: atraumatic, normocephalic - Eye Eye exam: Present: normal appearance. Absent: scleral icterus - ENT ENT exam: Present: mucous membranes moist - Neck Neck exam: Present: normal inspection - Respiratory Respiratory exam: Present: normal lung sounds bilaterally. Absent: respiratory distress - Cardiovascular Cardiovascular Exam: Present: regular rate, normal rhythm. Absent: systolic murmur, diastolic murmur, rubs, gallop - GI/Abdominal GI/Abdominal exam: Present: soft, distended, tenderness (muscle in the lower quadrants). Absent: guarding, rebound, rigid, normal bowel sounds (bowel sounds appear to be a bit increased), organomegaly, mass, bruit, pulsatile mass, hernia - Extremities Exam Extremities exam: Present: normal inspection, normal capillary refill. Absent: pedal edema, joint swelling, calf tenderness - Back Exam Back exam: Present: normal inspection - Neurological Exam Neurological exam: Present: alert, oriented X3, CN II-XII intact. Absent: motor sensory deficit - Psychiatric Psychiatric exam: Present: normal affect, normal mood - Skin Skin exam: Present: warm, dry, intact, normal color. Absent: rash ED Course Vital Signs 09/27/18 09/27/18 09/27/18 08:19 09:04 10:52 Temperature 98 F 98.9 F Pulse Rate 82 81 61 Respiratory 16 16 19 Rate Blood Pressure 127/76 Blood Pressure 124/75 145/90 [Left] O2 Sat by Pulse 99 100 100 Oximetry 09/27/18 09/27/18 12:37 13:53 Temperature 98.5 F Pulse Rate 71 70 Respiratory 15 16 Rate Blood Pressure Blood Pressure 114/83 123/83 [Left] O2 Sat by Pulse 100 100 Oximetry - Reevaluation(s) Reevaluation #1: No distress whatsoever. Looking at her laptop or surface pad. No complaints of abdominal pain. Discuss with her again the importance of avoiding emergency department visits for chronic abdominal pain. She states that she couldn't get an appointment with Dr. Conway or her primary care physician. She is not re ceptive to chronic pain management. It is unfortunate that the patient will present stating that she has intestinal obstruction. Most likely an emergency physician will be likely to obtain a CT study under these circumstances and with her history. 09/27/18 14:47 ED Medical Decision Making - Lab Data Result diagrams: 09/27/18 09:47 09/27/18 09:47 Laboratory Results - last 24 hr 09/27/18 09/27/18 09/27/18 09:47 09:47 09:47 WBC 4.7 RBC 4.12 Hgb 11.0 Hct 33.7 MCV 82 MCH 27 L MCHC 33 RDW 16.7 H Plt Count 179 Lymph % (Auto) 34.4 Lynn % (Auto) 7.4 H Eos % (Auto) 0.4 Baso % (Auto) 0.8 Lymph # 1.6 Lynn # 0.3 Eos # 0.0 Baso # 0.0 Seg Neutrophils % 57.0 Seg Neutrophils # 2.7 PT 13.1 INR 0.94 APTT 24.6 Sodium Potassium Chloride Carbon Dioxide Anion Gap BUN Creatinine Estimated GFR BUN/Creatinine Ratio Glucose Lactic Acid Calcium Magnesium Total Bilirubin AST ALT Alkaline Phosphatase Total Creatine Kinase CK-MB (CK-2) CK-MB (CK-2) Rel Index Troponin T NT-Pro-B Natriuret Pep Total Protein Albumin Albumin/Globulin Ratio HCG, Qual Positive Blood Type Antibody Screen 09/27/18 09/27/18 09/27/18 09:47 09:47 09:47 WBC RBC Hgb Hct MCV MCH MCHC RDW Plt Count Lymph % (Auto) Lynn % (Auto) Eos % (Auto) Baso % (Auto) Lymph # Lynn # Eos # Baso # Seg Neutrophils % Seg Neutrophils # PT INR APTT Sodium 142 Potassium 4.5 Chloride 105.1 Carbon Dioxide 23 Anion Gap 18 BUN 13 Creatinine 0.6 L Estimated GFR > 60 BUN/Creatinine Ratio 22 Glucose 89 Lactic Acid 1.20 Calcium 9.0 Magnesium 2.00 Total Bilirubin 0.20 AST 38 ALT 9 Alkaline Phosphatase 57 Total Creatine Kinase 118 CK-MB (CK-2) 1.8 CK-MB (CK-2) Rel Index 1.5 Troponin T < 0.010 NT-Pro-B Natriuret Pep 102.6 Total Protein 6.7 Albumin 4.4 Albumin/Globulin Ratio 1.9 HCG, Qual Blood Type O POSITIVE Antibody Screen Negative Laboratory Results - last 24 hr 09/27/18 09/27/18 09/27/18 09:47 09:47 09:47 WBC 4.7 RBC 4.12 Hgb 11.0 Hct 33.7 MCV 82 MCH 27 L MCHC 33 RDW 16.7 H Plt Count 179 Lymph % (Auto) 34.4 Lynn % (Auto) 7.4 H Eos % (Auto) 0.4 Baso % (Auto) 0.8 Lymph # 1.6 Lynn # 0.3 Eos # 0.0 Baso # 0.0 Seg Neutrophils % 57.0 Seg Neutrophils # 2.7 PT 13.1 INR 0.94 APTT 24.6 Sodium Potassium Chloride Carbon Dioxide Anion Gap BUN Creatinine Estimated GFR BUN/Creatinine Ratio Glucose Lactic Acid Calcium Magnesium Total Bilirubin AST ALT Alkaline Phosphatase Total Creatine Kinase CK-MB (CK-2) CK-MB (CK-2) Rel Index Troponin T NT-Pro-B Natriuret Pep Total Protein Albumin Albumin/Globulin Ratio HCG, Qual Positive Blood Type Antibody Screen 09/27/18 09/27/18 09/27/18 09:47 09:47 09:47 WBC RBC Hgb Hct MCV MCH MCHC RDW Plt Count Lymph % (Auto) Lynn % (Auto) Eos % (Auto) Baso % (Auto) Lymph # Lynn # Eos # Baso # Seg Neutrophils % Seg Neutrophils # PT INR APTT Sodium 142 Potassium 4.5 Chloride 105.1 Carbon Dioxide 23 Anion Gap 18 BUN 13 Creatinine 0.6 L Estimated GFR > 60 BUN/Creatinine Ratio 22 Glucose 89 Lactic Acid 1.20 Calcium 9.0 Magnesium 2.00 Total Bilirubin 0.20 AST 38 ALT 9 Alkaline Phosphatase 57 Total Creatine Kinase 118 CK-MB (CK-2) 1.8 CK-MB (CK-2) Rel Index 1.5 Troponin T < 0.010 NT-Pro-B Natriuret Pep 102.6 Total Protein 6.7 Albumin 4.4 Albumin/Globulin Ratio 1.9 HCG, Qual Blood Type O POSITIVE Antibody Screen Negative Laboratory Results - last 24 hr 09/27/18 09/27/18 09/27/18 09:47 09:47 09:47 WBC 4.7 RBC 4.12 Hgb 11.0 Hct 33.7 MCV 82 MCH 27 L MCHC 33 RDW 16.7 H Plt Count 179 Lymph % (Auto) 34.4 Lynn % (Auto) 7.4 H Eos % (Auto) 0.4 Baso % (Auto) 0.8 Lymph # 1.6 Lynn # 0.3 Eos # 0.0 Baso # 0.0 Seg Neutrophils % 57.0 Seg Neutrophils # 2.7 PT 13.1 INR 0.94 APTT 24.6 Sodium Potassium Chloride Carbon Dioxide Anion Gap BUN Creatinine Estimated GFR BUN/Creatinine Ratio Glucose Lactic Acid Calcium Magnesium Total Bilirubin AST ALT Alkaline Phosphatase Total Creatine Kinase CK-MB (CK-2) CK-MB (CK-2) Rel Index Troponin T NT-Pro-B Natriuret Pep Total Protein Albumin Albumin/Globulin Ratio HCG, Qual Positive HCG, Quant Urine Color Urine Turbidity Urine pH Ur Specific [place] Urine Protein Urine Glucose (UA) Urine Ketones Urine Blood Urine Nitrite Urine Bilirubin Urine Urobilinogen Ur Leukocyte Esterase Urine WBC (Auto) Urine RBC (Auto) U Epithel Cells (Auto) Urine Opiates Screen Urine Methadone Screen Ur Barbiturates Screen Ur Phencyclidine Scrn Ur Amphetamines Screen U Benzodiazepines Scrn Urine Cocaine Screen U Marijuana (THC) Screen Drugs of Abuse Note Blood Type Antibody Screen 09/27/18 09/27/18 09/27/18 09:47 09:47 09:47 WBC RBC Hgb Hct MCV MCH MCHC RDW Plt Count Lymph % (Auto) Lynn % (Auto) Eos % (Auto) Baso % (Auto) Lymph # Lynn # Eos # Baso # Seg Neutrophils % Seg Neutrophils # PT INR APTT Sodium 142 Potassium 4.5 Chloride 105.1 Carbon Dioxide 23 Anion Gap 18 BUN 13 Creatinine 0.6 L Estimated GFR > 60 BUN/Creatinine Ratio 22 Glucose 89 Lactic Acid 1.20 Calcium 9.0 Magnesium 2.00 Total Bilirubin 0.20 AST 38 ALT 9 Alkaline Phosphatase 57 Total Creatine Kinase 118 CK-MB (CK-2) 1.8 CK-MB (CK-2) Rel Index 1.5 Troponin T < 0.010 NT-Pro-B Natriuret Pep 102.6 Total Protein 6.7 Albumin 4.4 Albumin/Globulin Ratio 1.9 HCG, Qual HCG, Quant Urine Color Urine Turbidity Urine pH Ur Specific [place] Urine Protein Urine Glucose (UA) Urine Ketones Urine Blood Urine Nitrite Urine Bilirubin Urine Urobilinogen Ur Leukocyte Esterase Urine WBC (Auto) Urine RBC (Auto) U Epithel Cells (Auto) Urine Opiates Screen Urine Methadone Screen Ur Barbiturates Screen Ur Phencyclidine Scrn Ur Amphetamines Screen U Benzodiazepines Scrn Urine Cocaine Screen U Marijuana (THC) Screen Drugs of Abuse Note Blood Type O POSITIVE Antibody Screen Negative 09/27/18 09/27/18 09/27/18 09:47 11:45 11:45 WBC RBC Hgb Hct MCV MCH MCHC RDW Plt Count Lymph % (Auto) Lynn % (Auto) Eos % (Auto) Baso % (Auto) Lymph # Lynn # Eos # Baso # Seg Neutrophils % Seg Neutrophils # PT INR APTT Sodium Potassium Chloride Carbon Dioxide Anion Gap BUN Creatinine Estimated GFR BUN/Creatinine Ratio Glucose Lactic Acid Calcium Magnesium Total Bilirubin AST ALT Alkaline Phosphatase Total Creatine Kinase CK-MB (CK-2) CK-MB (CK-2) Rel Index Troponin T NT-Pro-B Natriuret Pep Total Protein Albumin Albumin/Globulin Ratio HCG, Qual HCG, Quant 10.31 H Urine Color Straw Urine Turbidity Clear Urine pH 7.0 Ur Specific [place] 1.004 Urine Protein <15 mg/dl Urine Glucose (UA) Neg Urine Ketones Neg Urine Blood Sm Urine Nitrite Neg Urine Bilirubin Neg Urine Urobilinogen < 2.0 Ur Leukocyte Esterase Neg Urine WBC (Auto) Not Reportable Urine RBC (Auto) < 1.0 U Epithel Cells (Auto) 1.0 Urine Opiates Screen Presumptive negative Urine Methadone Screen Presumptive negative Ur Barbiturates Screen Presumptive negative Ur Phencyclidine Scrn Presumptive negative Ur Amphetamines Screen Presumptive negative U Benzodiazepines Scrn Presumptive negative Urine Cocaine Screen Presumptive negative U Marijuana (THC) Screen Presumptive positive Drugs of Abuse Note Disclamer Blood Type Antibody Screen The hCG test is deemed to be inconsequential. The patient has had a hysterectomy. - EKG Data -: EKG Interpreted by Me EKG shows normal: sinus rhythm, axis, intervals, QRS complexes, ST-T waves Rate: normal - EKG Data Interpretation: no acute changes Critical care attestation.: If time is entered above; I have spent that time in minutes in the direct care of this critically ill patient, excluding procedure time. ED Disposition Clinical Impression: Abdominal pain Qualifiers: Abdominal location: unspecified location Qualified Code(s): R10.9 - Unspecified abdominal pain Disposition: DC-01 TO HOME OR SELFCARE Is pt being admited?: No Does the pt Need Aspirin: No Condition: Stable Instructions: Abdominal Pain (ED) Referrals: PRIMARY CAREMD [Referring] - 2-3 Days DEBO CONWAY MD [Staff Physician] - 2-3 Days Time of Disposition: 14:44
[2018-09-27 10:01] LABS: Basophils % (Auto) 0.8 % (0.0-1.8); Eosinophils % (Auto) 0.4 % (0.0-4.3); Hematocrit 33.7 % (30.3-42.9); Lymphocytes # (Auto) 1.6 K/mm3 (1.2-5.4); Lymphocytes % (Auto) 34.4 % (13.4-35.0); Mean Corpuscular HGB Conc 33 % (30-34); Mean Corpuscular Volume 82 fl (79-97); Monocytes # (Auto) 0.3 K/mm3 (0.0-0.8); Monocytes % (Auto) 7.4 % (0.0-7.3); Platelet Count 179 K/mm3 (140-440); Red Blood Count 4.12 M/mm3 (3.65-5.03); Red Cell Distribution Width 16.7 % (13.2-15.2)
[2018-09-27 10:15] LABS: INR 0.94 (0.87-1.13); Partial Thromboplastin Time 24.6 Sec. (24.2-36.6)
[2018-09-27 10:22] LABS: Creatine Kinase MB 1.8 ng/mL (0.0-4.0)
[2018-09-27 10:23] LABS: Alanine Aminotransferase 9 units/L (7-56); Albumin 4.4 g/dL (3.9-5); BUN/Creatinine Ratio 22; Blood Urea Nitrogen 13 mg/dL (7-17); Hemolysis Index 19
[2018-09-27] MEDS ORDERED: ZOFRAN ONE (10:49)
[2018-09-27] MEDS ORDERED: ZOSYN/NS 3.375GM/50ML 3.375 GM/50 ML BAG IV ONE (11:00)
[2018-09-27] MEDS ORDERED: ZOFRAN IV ONE (11:30)
[2018-09-27 11:54] LABS: Bilirubin,Urine NEG (Negative); Blood,Urine SM (Negative); Color,Urine Straw (Yellow); Protein,Urine <15 mg/dL mg/dL (Negative); RBC,Urine < 1.0 /HPF (0.0-6.0); Urobilinogen,Urine < 2.0 mg/dL (<2.0)
[2018-09-27 12:02] LABS: Amphetamine Screen,Urine PRESUMPTIVE NEGATIVE; Benzodiazepines Screen,Urine PRESUMPTIVE NEGATIVE; Cocaine Screen,Urine PRESUMPTIVE NEGATIVE; Methadone Screen,Urine PRESUMPTIVE NEGATIVE; Opiate Screen,Urine PRESUMPTIVE NEGATIVE
[2018-09-27 12:17] LABS: Cannabinoid Screen,Urine PRESUMPTIVE POSITIVE
--- NOTE | 2018-09-27 13:30 | Cat Scan Report ---
CT ABDOMEN PELVIS WITHOUT CONTRAST: HISTORY: Abdominal pain, distention. COMPARISON: 07/10/18. TECHNIQUE: Helical CT in 1.25mm intervals without IV contrast. Sagittal and coronal reconstructions. FINDINGS: Lung bases: Normal. Liver: Normal. Biliary system: Cholecystectomy. No biliary dilatation. Pancreas: Normal. Spleen: Normal. Kidneys/ureters/bladder: Punctate stone in the mid left kidney is again noted. 1 cm cyst at the inferior pole of the left kidney is unchanged. The kidneys, collecting systems and bladder are unremarkable otherwise. Adrenal glands: Normal. Aorta: Normal. Intestines: Normal. Appendix: Normal. Pelvic viscera: Hysterectomy changes are suspected. Ascites: None. Adenopathy: None. Musculoskeletal: Mild dextrocurvature of the lumbar spine is noted. The bony structures are intact. IMPRESSION: No acute process. No significant change since 07/10/18. Punctate left renal stone and left renal cyst. Surgical changes as described.
[2018-09-27 14:57] VITALS: BP 136/71
== END 2018-09-27 15:05 | disposition home or self-care (01) ==
LOC: ED 08:11
DX: R10.31 Right lower quadrant pain (principal); R10.32 Left lower quadrant pain; I10 Essential (primary) hypertension; K21.9 Gastro-esophageal reflux disease without esophagitis; J45.909 Unspecified asthma, uncomplicated; Z90.49 Acquired absence of other specified parts of digestive tract; Z90.710 Acquired absence of both cervix and uterus; Z88.6 Allergy status to analgesic agent; Z88.4 Allergy status to anesthetic agent; Z88.8 Allergy status to other drugs, medicaments and biological substances
CPT/HCPCS: 36415; 74176; 80053; 80307; 81001; 82140; 82550; 82553; 83735; 83880; 84484; 84702; 84703; 85025; 85610; 85730; 86850; 86900; 86901; 93005; 93010; 96365; 96375; 96376; 99284; C9113; J1170; J1200; J2405; J2543; J7030

== ENCOUNTER 2018-11-08 12:26 | Inpatient (IN) | payer MEDICAID ==
[2018-11-08] MEDS ORDERED: PHENERGAN PR ONE (12:48)
[2018-11-08] MEDS ORDERED: DILAUDID IM ONE (12:49)
--- NOTE | 2018-11-08 12:56 | Emergency Department Report ---
HPI - General Chief Complaint: Abdominal Pain Time Seen by Provider: 11/08/18 12:40 - HPI HPI: Room 17 The patient is a 43-year-old female presenting with a chief complaint of "bowel obstruction." The patient states she has had multiple small bowel obstructions S she is now. Patient states she has not had a bowel movement in the past 4 days. Patient admits to nausea and vomiting. Patient states she feels as though her abdomen is distended. The patient states approximately 2-3 days ago she was admitted to the [facility] in [place] ([place]) for SBO but left AMA Location: [See above] Duration: [See above] Quality: [See above] Severity: [See above] Modifying factors: [see above] Context: [see above] Mode of transportation: [not driving] ED Past Medical Hx - Past Medical History Hx Hypertension: Yes Hx GERD: Yes (Gastroparesis) Hx Renal Disease: Yes (renal failure- now in remission) Hx Kidney Stones: Yes Hx Asthma: Yes Additional medical history: ovarian/lung ca, gastroparesis, IBS, chronic pancreatitis, anemia. (LYMPHOMA LUNG), pyelonephritis, herpes, Small bowel obstruction,. PORT RIGHT CHEST - Surgical History Hx Cholecystectomy: Yes Additional Surgical History: fistula repair, lower bowel dissection, stents (in/out), hysterectomy. Power port - Family History Family history: no significant - Social History Smoking Status: Current Some Day Smoker Substance Use Type: Alcohol - Medications Home Medications: Home Medications Medication Instructions Recorded Confirmed Last Taken Type Promethazine [Phenergan TAB] 25 mg PO Q6HR PRN #20 tab 10/19/17 Unknown Rx Amoxicillin/Potassium Clav 1 each PO BID #20 tablet 03/22/18 Unknown Rx [Augmentin 875-125 Tablet] Ondansetron [Zofran Odt] 4 mg PO Q8HR PRN #14 tab.rapdis 03/22/18 Unknown Rx Polymyxin B Sulf/Trimethoprim 2 drops OP TID 7 Days drops 03/22/18 Unknown Rx [Polytrim Eye Drops] traMADol [Ultram] 50 mg PO Q6HR PRN #14 tablet 03/22/18 Unknown Rx Docusate Sodium [Colace] 100 mg PO BID PRN #60 capsule 04/15/18 Unknown Rx Lactulose 10 gm PO DAILY PRN #150 ml 04/15/18 Unknown Rx Sodium Phosphate,[place]-Dibasic 118 ml RC ONCE #1 enema 04/15/18 Unknown Rx [Fleet Enema] Promethazine [Phenergan SUPPOS] 25 mg [place] Q6HR PRN #10 supp.rect 05/07/18 Unknown Rx Promethazine [Phenergan] 25 mg PO Q6HR PRN #10 tab 05/07/18 Unknown Rx Promethazine [Phenergan TAB] 25 mg PO Q6HR PRN #20 tab 07/10/18 Unknown Rx oxyCODONE /ACETAMINOPHEN [Percocet 1 tab PO Q4HR PRN #12 tab 07/10/18 Unknown Rx 5/325] Ondansetron [Zofran Odt] 4 mg PO Q4HR PRN #20 tab.rapdis 08/13/18 Unknown Rx Oxycodone HCl/Acetaminophen 1 each PO Q6HR PRN #6 tablet 08/13/18 Unknown Rx [Percocet 10/325 mg] Promethazine [Phenergan TAB] 25 mg PO Q6HR PRN #20 tab 08/13/18 Unknown Rx Benzonatate [Tessalon Perles] 100 mg PO Q8HR PRN #30 capsule 09/08/18 Unknown Rx Promethazine [Phenergan] 25 mg PO Q6HR PRN #20 tab 09/08/18 Unknown Rx oxyCODONE /ACETAMINOPHEN [Percocet 1 tab PO Q6HR PRN #10 tablet 09/08/18 Unknown Rx 5/325 mg] ALBUTEROL Inhaler(NF) [VENTOLIN 2 puff IH Q4HRT #1 inha 09/13/18 Unknown Rx Inhaler(NF)] Amoxicillin/Potassium Clav 1 each PO BID #14 tablet 09/13/18 Unknown Rx [Augmentin 875-125 Tablet] Promethazine HCl [Phenergan SUPPOS] 25 mg RC Q8HR PRN #10 supp.rect 09/13/18 Unknown Rx Promethazine [Phenergan] 25 mg PO Q8HR PRN #10 tab 09/13/18 Unknown Rx Promethazine [Phenergan] 25 mg [place] Q6HR PRN #10 supp.rect 09/13/18 Unknown Rx oxyCODONE /ACETAMINOPHEN [Percocet 1 tab PO Q4HR #10 tab 09/13/18 Unknown Rx 5/325] predniSONE [Deltasone] 20 mg PO QDAY #5 tab 09/13/18 Unknown Rx ED Review of Systems ROS: Stated complaint: BOWEL OBSTRUCTION Other details as noted in HPI Constitutional: fever Eyes: denies: eye pain ENT: denies: throat pain Respiratory: no symptoms reported Cardiovascular: denies: chest pain Endocrine: no symptoms reported Gastrointestinal: abdominal pain, nausea, vomiting Genitourinary: denies: dysuria Musculoskeletal: denies: back pain Neurological: denies: headache Physical Exam - Physical Exam Vital Signs: Vital Signs 11/08/18 12:38 Temperature 98.4 F Pulse Rate 69 Respiratory 18 Rate Blood Pressure 112/80 O2 Sat by Pulse 99 Oximetry Physical Exam: GENERAL: The patient is well-developed well-nourished female lying on stretcher appearing to be in mild discomfort. [] HEENT: Normocephalic. Atraumatic. Extraocular motions are intact. Patient has moist mucous membranes. NECK: Supple. Trachea midline CHEST/LUNGS: Clear to auscultation. There is no respiratory distress noted. HEART/CARDIOVASCULAR: Regular. There is no tachycardia. There is no gallop rub or murmur. ABDOMEN: Abdomen is soft, and appears distended. SKIN: There is no rash. There is no edema. There is no diaphoresis. NEURO: The patient is awake, alert, and oriented. The patient is cooperative. The patient has normal speech MUSCULOSKELETAL: There is no evidence of acute injury. ED Course Vital Signs 11/08/18 12:38 Temperature 98.4 F Pulse Rate 69 Respiratory 18 Rate Blood Pressure 112/80 O2 Sat by Pulse 99 Oximetry - Consultations Consultation #1: 11/08/18 14:33 Surgery paged- case discussed with Dr. Eason ED Medical Decision Making - Lab Data Result diagrams: 11/08/18 13:09 11/08/18 13:09 Laboratory Tests 11/08/18 11/08/18 13:09 13:09 WBC 4.3 L RBC 4.08 Hgb 11.1 Hct 33.4 MCV 82 MCH 27 L MCHC 33 RDW 15.5 H Plt Count 190 Lymph % (Auto) 46.2 H [place] % (Auto) 13.3 H Eos % (Auto) 0.8 Baso % (Auto) 0.6 Lymph # 2.0 [place] # 0.6 Eos # 0.0 Baso # 0.0 Seg Neutrophils % 39.1 L Seg Neutrophils # 1.7 L Sodium 141 Potassium 3.6 Chloride 104.4 Carbon Dioxide 23 Anion Gap 17 BUN 15 Creatinine 0.8 Estimated GFR > 60 BUN/Creatinine Ratio 19 Glucose 89 Calcium 9.0 Total Bilirubin 0.40 AST 45 H ALT 13 Alkaline Phosphatase 57 Total Protein 7.2 Albumin 4.3 Albumin/Globulin Ratio 1.5 Lipase 26 - Radiology Data Radiology results: report reviewed (CT abdomen and pelvis), image reviewed (CT abdomen and pelvis) [facility] [address] [place] [address] Cat Scan Report Signed Patient: SONJA SERNA MR#: [id number] : 1975 Acct:[id number] Age/Sex: 43 / F ADM Date: 11/08/18 Loc: ED Attending Dr: Ordering Physician: JACKSON CAI MD Date of Service: 11/08/18 Procedure(s): CT abdomen pelvis wo con Accession Number(s): [id number] cc: JACKSON CAI MD CT abdomen pelvis wo con INDICATION: abdominal distention, unable to pass stool. TECHNIQUE: All CT scans at this location are performed using the following dose modulation technique: Automated exposure control. Helical slices were obtained through the abdomen and pelvis. No contrast is administered. COMPARISON: CT scan report dated 09/27/2018 FINDINGS: Abdomen: The lung bases are clear. Small amount of focal fatty infiltration in the left lobe of the liver adjacent to the falciform ligament. The spleen, pancreas, adrenal glands, and kidneys are unremarkable. The aorta is normal in diameter. There is a dilated loop of small bowel in the mid and upper abdomen. There is a transition point in the mid upper pelvis. The appendix is unremarkable. There are no abnormal fluid collections there is no inflammatory change. There is a small to moderate amount stool in colon. Pelvis: Phleboliths are noted. There is no inflammatory change. There are no abnormal fluid collections. On review of bone windows, no acute osseous abnormalities are seen. IMPRESSION: 1. There is a small bowel ob struction with a dilated loop small bowel mid abdomen with transition point in the mid upper pelvis. The stomach and proximal small bowel are not distended. There is no bowel wall thickening. There is no ascites. There is no inflammatory change. Signer Name: Matt Hernandez MD Signed: 11/08/2018 2:20 PM Workstation Name: [id number] Transcribed By: SS Dictated By: Matt Hernandez MD Electronically Authenticated By: Matt Hernandez MD Signed Date/Time: 11/08/18 1420 DD/ 1402 TD/TT: - Differential Diagnosis SBO, gastroparesis, gastritis Critical care attestation.: If time is entered above; I have spent that time in minutes in the direct care of this critically ill patient, excluding procedure time. ED Disposition Clinical Impression: Small bowel obstruction, Acute abdominal pain Disposition: OP ADMIT IP TO THIS HOSP Is pt being admited?: Yes Does the pt Need Aspirin: Yes Condition: Fair Instructions: Abdominal Pain (ED) Referrals: BECKI BROWN MD [Primary Care Provider] - 3-5 Days Time of Disposition: 14:50 (hospitalist notified (Dr Jefferson))
[2018-11-08] MEDS ORDERED: DILAUDID IV ONE (13:07)
[2018-11-08] MEDS ORDERED: BENADRYL IV ONE (13:18)
[2018-11-08 13:30] LABS: Basophils % (Auto) 0.6 % (0.0-1.8); Eosinophils % (Auto) 0.8 % (0.0-4.3); Hematocrit 33.4 % (30.3-42.9); Hemoglobin 11.1 gm/dl (10.1-14.3); Lymphocytes % (Auto) 46.2 % (13.4-35.0); Mean Corpuscular HGB Conc 33 % (30-34); Mean Corpuscular Volume 82 fl (79-97); Monocytes # (Auto) 0.6 K/mm3 (0.0-0.8); Monocytes % (Auto) 13.3 % (0.0-7.3); Platelet Count 190 K/mm3 (140-440); Red Blood Count 4.08 M/mm3 (3.65-5.03); Red Cell Distribution Width 15.5 % (13.2-15.2)
[2018-11-08 13:52] LABS: Alanine Aminotransferase 13 units/L (7-56); Albumin 4.3 g/dL (3.9-5); BUN/Creatinine Ratio 19; Blood Urea Nitrogen 15 mg/dL (7-17); Hemolysis Index 16
--- NOTE | 2018-11-08 14:24 | Cat Scan Report ---
CT abdomen pelvis wo con INDICATION: abdominal distention, unable to pass stool. TECHNIQUE: All CT scans at this location are performed using the following dose modulation technique: Automated exposure control. Helical slices were obtained through the abdomen and pelvis. No contrast is adminis tered. COMPARISON: CT scan report dated 09/27/2018 FINDINGS: Abdomen: The lung bases are clear. Small amount of focal fatty infiltration in the left lobe of the l iver adjacent to the falciform ligament. The spleen, pancreas, adrenal glands, and kidneys are unrema rkable. The aorta is normal in diameter. There is a dilated loop of small bowel in the mid and upper abdomen. There is a transition point in the mid upper pelvis. The appendix is unremarkable. There are no abnormal fluid collections there is no inflammatory change . There is a small to moderate amount stool in colon. Pelvis: Phleboliths are noted. There is no inflammatory change. There are no abnormal fluid collectio ns. On review of bone windows, no acute osseous abnormalities are seen. IMPRESSION: 1. There is a small bowel obstruction with a dilated loop small bowel mid abdomen with transition poi nt in the mid upper pelvis. The stomach and proximal small bowel are not distended. There is no bowel wall thickening. There is no ascites. There is no inflammatory change. Signer Name: Matt Hernandez MD Signed: 11/08/2018 2:20 PM Workstation Name: [id number]
[2018-11-08] MEDS ORDERED: NACL 0.9% 1000 ML 1,000 ML IV ONE (14:34)
[2018-11-08] MEDS ORDERED: SODIUM CHLORIDE FLUSH SYRINGE 10 ML IV PRN (15:54)
[2018-11-08] MEDS ORDERED: ZOFRAN IV PRN (15:56)
--- NOTE | 2018-11-08 16:09 | History and Physical Report ---
History of Present Illness Date of examination: 11/08/18 Date of admission: 11/08/18 14:47 Chief complaint: Persistent vomiting for 3 to 4 days History of present illness: 43-year-old female presenting with a chief complaint of "bowel obstruction." The patient states she has had multiple small bowel obstructions recently. Patient states she has not had a bowel movement in the past 4 days. Patient admits to nausea and vomiting. Patient states she feels as though her abdomen is distended. The patient states approximately 2-3 days ago she was admitted to the [facility] in [place] ([place]) for SBO but left AMA Past Medical History HHypertension: Yes GERD: Yes (Gastroparesis) Renal Disease: Yes (renal failure- now in remission) Kidney Stones: Yes Asthma: Yes Additional medical history: ovarian/lung ca, gastroparesis, IBS, chronic pancreatitis, anemia. (LYMPHOMA LUNG), pyelonephritis, herpes, Small bowel obstruction,. PORT RIGHT CHEST Surgical History Hx Cholecystectomy: Yes Additional Surgical History: fistula repair, lower bowel dissection, stents (in/out), hysterectomy. Power port Family History Family history: no significant Social History Smoking Status: Current Some Day Smoker Substance Use Type: Alcohol Review of Systems ROS: Stated complaint: BOWEL OBSTRUCTION Other details as noted in HPI Constitutional: fever Eyes: denies: eye pain ENT: denies: throat pain Respiratory: no symptoms reported Cardiovascular: denies: chest pain Endocrine: no symptoms reported Gastrointestinal: abdominal pain, nausea, vomiting Genitourinary: denies: dysuria Musculoskeletal: denies: back pain Neurological: denies: headache Medications and Allergies Allergies Allergy/AdvReac Type Severity Reaction Status Date / Time codeine Allergy Itching Verified 09/13/18 07:52 fentanyl Allergy Hives Verified 09/13/18 07:52 ketorolac tromethamine Allergy Itching Verified 09/13/18 07:52 [From Toradol] metoclopramide HCl Allergy Hives Verified 09/13/18 07:52 [From Reglan] morphine Allergy Hives Verified 09/13/18 07:52 ondansetron HCl [From Zofran] Allergy Hives Verified 12/24/16 08:17 prochlorperazine edisylate Allergy Hives Verified 09/13/18 07:52 [From Compazine] prochlorperazine maleate Allergy Hives Verified 09/13/18 07:52 [From Compazine] Home Medications Medication Instructions Recorded Confirmed Last Taken Type Pantoprazole [Protonix] 40 mg PO QDAY 11/08/18 11/08/18 11/03/18 History Exam - Constitutional Vitals: Temp Pulse Resp BP Pulse Ox 98.4 F 69 18 119/76 86 11/08/18 12:38 11/08/18 12:38 11/08/18 12:38 11/08/18 15:00 11/08/18 15:00 General appearance: Present: no acute distress, well-nourished - EENT Eyes: Present: PERRL ENT: hearing intact, clear oral mucosa - Neck Neck: Present: supple, normal ROM - Respiratory Respiratory effort: normal Respiratory: bilateral: CTA - Cardiovascular Heart rate: 78 Rhythm: regular Heart Sounds: Present: S1 & S2. Absent: rub, click - Extremities Extremities: pulses symmetrical, No edema Peripheral Pulses: within normal limits - Abdominal General gastrointestinal: Present: tender, distended, hypoactive bowel sounds Female genitourinary: Present: normal - Rectal Rectal Exam: deferred - Integumentary Integumentary: Present: clear, warm, dry - Musculoskeletal Musculoskeletal: gait normal, strength equal bilaterally - Psychiatric Psychiatric: appropriate mood/affect, intact judgment & insight - Neurologic Neurologic: CNII-XII intact, moves all extremities - Allied Health Allied health notes reviewed: nursing, case management Results - Labs CBC & Chem 7: 11/08/18 13:09 11/08/18 13:09 Labs: Laboratory Last Values WBC 4.3 K/mm3 (4.5-11.0) L 11/08/18 13:09 RBC 4.08 M/mm3 (3.65-5.03) 11/08/18 13:09 Hgb 11.1 gm/dl (10.1-14.3) 11/08/18 13:09 Hct 33.4 % (30.3-42.9) 11/08/18 13:09 MCV 82 fl (79-97) 11/08/18 13:09 MCH 27 pg (28-32) L 11/08/18 13:09 MCHC 33 % (30-34) 11/08/18 13:09 RDW 15.5 % (13.2-15.2) H 11/08/18 13:09 Plt Count 190 K/mm3 (140-440) 11/08/18 13:09 Lymph % (Auto) 46.2 % (13.4-35.0) H 11/08/18 13:09 [place] % (Auto) 13.3 % (0.0-7.3) H 11/08/18 13:09 Eos % (Auto) 0.8 % (0.0-4.3) 11/08/18 13:09 Baso % (Auto) 0.6 % (0.0-1.8) 11/08/18 13:09 Lymph # 2.0 K/mm3 (1.2-5.4) 11/08/18 13:09 [place] # 0.6 K/mm3 (0.0-0.8) 11/08/18 13:09 Eos # 0.0 K/mm3 (0.0-0.4) 11/08/18 13:09 Baso # 0.0 K/mm3 (0.0-0.1) 11/08/18 13:09 Seg Neutrophils % 39.1 % (40.0-70.0) L 11/08/18 13:09 Seg Neutrophils # 1.7 K/mm3 (1.8-7.7) L 11/08/18 13:09 Sodium 141 mmol/L (137-145) 11/08/18 13:09 Potassium 3.6 mmol/L (3.6-5.0) 11/08/18 13:09 Chloride 104.4 mmol/L (98-107) 11/08/18 13:09 Carbon Dioxide 23 mmol/L (22-30) 11/08/18 13:09 17 mmol/L 11/08/18 13:09 BUN 15 mg/dL (7-17) 11/08/18 13:09 0.8 mg/dL (0.7-1.2) 11/08/18 13:09 Estimated GFR > 60 ml/min 11/08/18 13:09 19 % 11/08/18 13:09 Glucose 89 mg/dL (65-100) 11/08/18 13:09 Calcium 9.0 mg/dL (8.4-10.2) 11/08/18 13:09 0.40 mg/dL (0.1-1.2) 11/08/18 13:09 AST 45 units/L (5-40) H 11/08/18 13:09 ALT 13 units/L (7-56) 11/08/18 13:09 57 units/L (35-129) 11/08/18 13:09 7.2 g/dL (6.3-8.2) 11/08/18 13:09 4.3 g/dL (3.9-5) 11/08/18 13:09 1.5 % 11/08/18 13:09 26 units/L (13-60) 11/08/18 13:09 Short CBC 11/08/18 Range/Units 13:09 WBC 4.3 L (4.5-11.0) K/mm3 Hgb 11.1 (10.1-14.3) gm/dl Hct 33.4 (30.3-42.9) % Plt Count 190 (140-440) K/mm3 BMP 11/08/18 13:09 Sodium 141 Potassium 3.6 Chloride 104.4 Carbon Dioxide 23 BUN 15 Creatinine 0.8 Glucose 89 Calcium 9.0 Liver Function 11/08/18 Range/Units 13:09 Total Bilirubin 0.40 (0.1-1.2) mg/dL AST 45 H (5-40) units/L ALT 13 (7-56) units/L Alkaline Phosphatase 57 (35-129) units/L Albumin 4.3 (3.9-5) g/dL - Imaging and Cardiology Imaging and Cardiology: CT Abd IMPRESSION: 1. There is a small bowel obstruction with a dilated loop small bowel mid abdomen with transition point in the mid upper pelvis. The stomach and proximal small bowel are not distended. There is no bowel wall thickening. There is no ascites. There is no inflammatory change. Assessment and Plan Advance Directives: Yes (Full code) VTE prophylaxis?: Chemical Plan of care discussed with patient/family: Yes - Patient Problems (1) Small bowel obstruction Current Visit: Yes Status: Acute Plan to address problem: Keep NPO Surgery consult IV fluids (2) Dehydration Current Visit: Yes Status: Acute Plan to address problem: IV Fluids for now (3) DVT prophylaxis Current Visit: No Status: Acute Plan to address problem: OnLovenox and GI prophylaxis
[2018-11-08] MEDS: PEPCID IV SCH ×2 (16:10→21:23)
[2018-11-08] MEDS: DILAUDID IV PRN ×3 (16:10→23:14)
[2018-11-08] MEDS: D5NS 1,000 ML IV SCH (19:45)
[2018-11-08] MEDS: ZOFRAN IV PRN (19:46)
[2018-11-08] MEDS: SODIUM CHLORIDE FLUSH SYRINGE 10 ML IV SCH (21:23)
[2018-11-09] MEDS ORDERED: BENADRYL PO PRN (00:06)
[2018-11-09] MEDS: DILAUDID IV PRN ×7 (02:08→21:10)
[2018-11-09] MEDS: BENADRYL IV PRN ×3 (05:24→17:57)
--- NOTE | 2018-11-09 08:35 | XRay Report ---
PROCEDURE: ABDOMEN FLAT AND UPRIGHT WITH SINGLE VIEW CHEST HISTORY: abdominal distention COMPARISON: 08/13/2018 TECHNIQUE: Supine and upright abdominal as well as single view chest radiographs obtained. FINDINGS: Lungs: The lungs are clear. The lung volumes are normal. Pleural Effusion: No evidence of a pleural effusion is seen. Pneumothorax: No evidence of pneumothorax is seen. Cardiac: The heart size is normal. A right [id number] tip is in the distal SVC. Mediastinal silhouette: The mediastinal silhouette is normal. Hilar regions: The hilar regions are normal in appearance. Pulmonary vascularity: The pulmonary vascularity is normal in appearance. Trachea: The trachea is midline. Skeletal structures: Lower thoracic levoscoliosis. Additional findings: None. Bowel: The bowel gas pattern is normal in appearance with a large volume of stool throughout the colo n. Gas in the rectum. No evidence of obstruction is seen. No evidence of free air is identified. Calcifications: No abnormal calcifications over the kidneys or along the course of the ureters are se en. No phleboliths in the pelvis are seen. Pelvic phleboliths are unchanged compared to the prior ex am. Osseous Structures: Mild dextroscoliosis. Additional findings: Right upper quadrant surgical clips. IMPRESSION: Negative chest and abdomen. Signer Name: Noé Ratliff MD Signed: 11/09/2018 8:31 AM Workstation Name: [id number]
[2018-11-09 10:46] LABS: Hematocrit 32.1 % (30.3-42.9); Hemoglobin 10.4 gm/dl (10.1-14.3); Mean Corpuscular HGB Conc 33 % (30-34); Mean Corpuscular Volume 83 fl (79-97); Platelet Count 180 K/mm3 (140-440); Red Blood Count 3.89 M/mm3 (3.65-5.03); Red Cell Distribution Width 15.5 % (13.2-15.2)
[2018-11-09 11:06] LABS: BUN/Creatinine Ratio 11; Blood Urea Nitrogen 8 mg/dL (7-17); Calcium 8.4 mg/dL (8.4-10.2); Hemolysis Index 9
[2018-11-09] MEDS: SODIUM CHLORIDE FLUSH SYRINGE 10 ML IV SCH ×2 (11:31→21:12)
[2018-11-09] MEDS: PEPCID IV SCH ×2 (11:31→21:12)
--- NOTE | 2018-11-09 11:31 | Progress Note ---
Assessment and Plan Assessment and plan: Small bowel obstruction. Admitted to Tele NPO iv fluids NG tube ordered but she refused. I discussed with her importance of inserting NG tube Surgeon consulted She states she has had bowel obstruction many times always managed conservatively GERD Protonix Chronic pancreatitis Supportive care History of lymphoma of lung History of ovarian cancer Full code status History Interval history: Abdominal pain nausea and vomiting History of bowel obstruction multiple times Hospitalist Physical - Physical exam Narrative exam: Gen: Not in acute distress, lying in bed HEENT: Normocephalic, atraumatic Neck: supple, no JVD Heart: S1 and S2 reg, no murmurs, rubs or gallop Lungs: Clear, no crackles, no wheeze Abd: soft, tender, distended, reduced bowel sounds Ext: No edema, no clubbing, no cyanosis, Neuro: Awake,alert, moves all ext, non focal - Constitutional Vitals: Temp Pulse Resp BP Pulse Ox 98.6 F 72 20 109/72 97 11/09/18 06:08 11/09/18 06:08 11/09/18 06:08 11/09/18 06:08 11/09/18 06:08 General appearance: Present: no acute distress, well-nourished Results - Labs CBC & Chem 7: 11/09/18 10:09 11/09/18 10:09 Labs: Laboratory Last Values WBC 3.8 K/mm3 (4.5-11.0) L 11/09/18 10:09 RBC 3.89 M/mm3 (3.65-5.03) 11/09/18 10:09 Hgb 10.4 gm/dl (10.1-14.3) 11/09/18 10:09 Hct 32.1 % (30.3-42.9) 11/09/18 10:09 MCV 83 fl (79-97) 11/09/18 10:09 MCH 27 pg (28-32) L 11/09/18 10:09 MCHC 33 % (30-34) 11/09/18 10:09 RDW 15.5 % (13.2-15.2) H 11/09/18 10:09 Plt Count 180 K/mm3 (140-440) 11/09/18 10:09 Lymph % (Auto) 46.2 % (13.4-35.0) H 11/08/18 13:09 [place] % (Auto) 13.3 % (0.0-7.3) H 11/08/18 13:09 Eos % (Auto) 0.8 % (0.0-4.3) 11/08/18 13:09 Baso % (Auto) 0.6 % (0.0-1.8) 11/08/18 13:09 Lymph # 2.0 K/mm3 (1.2-5.4) 11/08/18 13:09 [place] # 0.6 K/mm3 (0.0-0.8) 11/08/18 13:09 Eos # 0.0 K/mm3 (0.0-0.4) 11/08/18 13:09 Baso # 0.0 K/mm3 (0.0-0.1) 11/08/18 13:09 Seg Neutrophils % 39.1 % (40.0-70.0) L 11/08/18 13:09 Seg Neutrophils # 1.7 K/mm3 (1.8-7.7) L 11/08/18 13:09 Sodium 139 mmol/L (137-145) 11/09/18 10:09 Potassium 3.5 mmol/L (3.6-5.0) L 11/09/18 10:09 Chloride 104.6 mmol/L (98-107) 11/09/18 10:09 Carbon Dioxide 22 mmol/L (22-30) 11/09/18 10:09 16 mmol/L 11/09/18 10:09 BUN 8 mg/dL (7-17) 11/09/18 10:09 0.7 mg/dL (0.7-1.2) 11/09/18 10:09 Estimated GFR > 60 ml/min 11/09/18 10:09 11 % 11/09/18 10:09 Glucose 92 mg/dL (65-100) 11/09/18 10:09 Calcium 8.4 mg/dL (8.4-10.2) 11/09/18 10:09 Phosphorus 3.20 mg/dL (2.5-4.5) 11/09/18 10:09 Magnesium 1.80 mg/dL (1.7-2.3) 11/09/18 10:09 0.40 mg/dL (0.1-1.2) 11/08/18 13:09 AST 45 units/L (5-40) H 11/08/18 13:09 ALT 13 units/L (7-56) 11/08/18 13:09 57 units/L (35-129) 11/08/18 13:09 7.2 g/dL (6.3-8.2) 11/08/18 13:09 4.3 g/dL (3.9-5) 11/08/18 13:09 1.5 % 11/08/18 13:09 26 units/L (13-60) 11/08/18 13:09 Active Medications - Current Medications Current Medications: Generic Name Dose Route Start Last Admin Trade Name Freq PRN Reason Stop Dose Admin Diphenhydramine HCl 25 mg 11/09/18 03:14 11/09/18 05:24 Benadryl IV 25 mg Q6H PRN Administration Itching Enoxaparin Sodium 40 mg 11/09/18 22:00 Lovenox SUB-Q QDAY@2200 VINNIE Famotidine 20 mg 11/08/18 16:00 11/09/18 11:31 Pepcid IV 20 mg BID VINNIE Administration Hydromorphone HCl 1 mg 11/08/18 15:54 11/09/18 11:29 Dilaudid IV 1 mg Q3H PRN Administration Pain , Severe (7-10) Dextrose/Sodium Chloride 1,000 mls @ 100 mls/hr 11/08/18 16:00 11/08/18 19:45 D5ns IV 100 mls/hr DIRECT VINNIE Administration Ondansetron HCl 4 mg 11/08/18 15:54 11/08/18 19:46 Zofran IV 4 mg Q8H PRN Administration Nausea And Vomiting Ondansetron HCl 4 mg 11/08/18 15:56 11/09/18 08:39 Zofran IV 4 mg Q3H PRN Administration Nausea And Vomiting Sodium Chloride 10 ml 11/08/18 22:00 11/09/18 11:31 Sodium Chloride Flush Syringe 10 Ml IV 10 ml BID VINNIE Administration Sodium Chloride 10 ml 11/08/18 15:54 Sodium Chloride Flush Syringe 10 Ml IV PRN PRN LINE FLUSH
--- NOTE | 2018-11-09 13:56 | Progress Note ---
Assessment and Plan Full consult dictated. 43 y/o female complex hx with multiple prior abd surgeries. admlittted secondary to partial SBO. stressed to her the importance of ng tube insertion which pt has previously refused. Pt now states that she will accept. rec NG suction NPO IVF mineral oil thru NG f/u abd series in am History of Present Illness Date of examination: 11/08/18 Date of admission: 11/08/18 14:47 Chief complaint: Persistent vomiting for 3 to 4 days History of present illness: 43-year-old female presenting with a chief complaint of "bowel obstruction." The patient states she has had multiple small bowel obstructions recently. Patient states she has not had a bowel movement in the past 4 days. Patient admits to nausea and vomiting. Patient states she feels as though her abdomen is distended. The patient states approximately 2-3 days ago she was admitted to the [facility] in [place] ([place] for SBO but left AMA Past Medical History HHypertension: Yes GERD: Yes (Gastroparesis) Renal Disease: Yes (renal failure- now in remission) Kidney Stones: Yes Asthma: Yes Additional medical history: ovarian/lung ca, gastroparesis, IBS, chronic pancreatitis, anemia. (LYMPHOMA LUNG), pyelonephritis, herpes, Small bowel obstruction,. PORT RIGHT CHEST Surgical History Hx Cholecystectomy: Yes Additional Surgical History: fistula repair, lower bowel dissection, stents (in/out), hysterectomy. Power port Family History Family history: no significant Social History Smoking Status: Current Some Day Smoker Substance Use Type: Alcohol Selected Entries 11/09/18 12:11 Temperature 98.7 F Pulse Rate 81 Blood Pressure 137/66 Laboratory Tests 11/08/18 11/09/18 11/09/18 13:09 10:09 10:09 WBC 3.8 L Hgb 10.4 Hct 32.1 Sodium 139 Potassium 3.5 L Chloride 104.6 Carbon Dioxide 22 Glucose 92 Total Bilirubin 0.40 AST 45 H ALT 13 Alkaline Phosphatase 57 Lipase 26 Objective Vital Signs - 12hr 11/09/18 11/09/18 06:08 12:11 Temperature 98.6 F 98.7 F Pulse Rate 72 81 Respiratory 20 20 Rate Blood Pressure 109/72 137/66 O2 Sat by Pulse 97 95 Oximetry - Labs 11/09/18 10:09 11/09/18 10:09 Diabetes panel 11/09/18 Range/Units 10:09 Sodium 139 (137-145) mmol/L Potassium 3.5 L (3.6-5.0) mmol/L Chloride 104.6 (98-107) mmol/L Carbon Dioxide 22 (22-30) mmol/L BUN 8 (7-17) mg/dL Creatinine 0.7 (0.7-1.2) mg/dL Glucose 92 (65-100) mg/dL Calcium 8.4 (8.4-10.2) mg/dL Calcium panel 11/09/18 Range/Units 10:09 Calcium 8.4 (8.4-10.2) mg/dL Phosphorus 3.20 (2.5-4.5) mg/dL Pituitary panel 11/09/18 Range/Units 10:09 Sodium 139 (137-145) mmol/L Potassium 3.5 L (3.6-5.0) mmol/L Chloride 104.6 (98-107) mmol/L Carbon Dioxide 22 (22-30) mmol/L BUN 8 (7-17) mg/dL Creatinine 0.7 (0.7-1.2) mg/dL Glucose 92 (65-100) mg/dL Calcium 8.4 (8.4-10.2) mg/dL Adrenal panel 11/09/18 Range/Units 10:09 Sodium 139 (137-145) mmol/L Potassium 3.5 L (3.6-5.0) mmol/L Chloride 104.6 (98-107) mmol/L Carbon Dioxide 22 (22-30) mmol/L BUN 8 (7-17) mg/dL Creatinine 0.7 (0.7-1.2) mg/dL Glucose 92 (65-100) mg/dL Calcium 8.4 (8.4-10.2) mg/dL
[2018-11-09] MEDS: ATIVAN IV PRN (14:30)
[2018-11-09] MEDS: D5NS 1,000 ML IV SCH (14:30)
--- NOTE | 2018-11-09 17:33 | XRay Report ---
ABDOMEN 1 VIEW(S) INDICATION / CLINICAL INFORMATION: verify ng tube placement. COMPARISON: Exam done earlier on 11/09/2018 FINDINGS: TUBES / LINES: The tip of the NG tube is in good position projecting over the body of the stomach. BOWEL GAS PATTERN/EXTRALUMINAL GAS: No significant abnormality. No pneumatosis or secondary signs of free air. ADDITIONAL FINDINGS: No significant additional findings. IMPRESSION: 1. NG tube tip projecting over the body of the stomach in good position. Signer Name: Raghavendra Mcdermott MD Signed: 11/09/2018 5:28 PM Workstation Name: [id number]
[2018-11-09] MEDS: MINERAL OIL PO SCH ×2 (20:23→23:06)
[2018-11-09] MEDS: HEPARIN SUB-Q SCH (21:12)
[2018-11-09] MEDS: D5W/NS W/KCL 20MEQ 20 MEQ/1,000 ML BAG IV SCH (21:14)
--- NOTE | 2018-11-09 21:38 | Consultation ---
REASON FOR CONSULTATION: Partial small bowel obstruction. HISTORY OF PRESENT ILLNESS: The patient is a 43-year-old female with past history of anxiety and also very complicated past surgical history of multiple prior abdominal surgeries. At this time, the patient was admitted with a chief complaint of nausea, vomiting and abdominal pain. States last bowel movement was approximately 4-5 days ago. PAST MEDICAL HISTORY: Pertinent for chronic pancreatitis, IBS, gastroparesis, lymphoma and ovarian cancer. PAST SURGICAL HISTORY: Status post TAHBSO, also subsequent bladder fistula which was repaired. Also, cholecystectomy with subsequent bile leak which required ERCP and common bile duct stent placement. Also, a segmental small bowel resection secondary to perforated small bowel? Apparently, this surgery was done by Dr. Mcallister. ALLERGIES: Allergic to PAIN MEDICINES, in general, which causes her to " MEDICATIONS: Takes no medications. FAMILY HISTORY: Breast cancer. SOCIAL HISTORY: Denies any smoking or drinking. REVIEW OF SYSTEMS: Noncontributory. PHYSICAL EXAMINATION: GENERAL: At this time reveals the patient is somewhat anxious. Awake, alert and cooperative. VITAL SIGNS: Showed to be afebrile with a temperature of 98.7, blood pressure 137/66, pulse of 81, respirations of 20. ABDOMEN: Examination of the abdomen reveals to be 1+ distended. Moderate tenderness. No rebound. Bowel sounds hypoactive to absent. A low midline scar is noted. LABORATORY DATA: Lab work at present includes a CBC, which shows a white count of 3.8, H and H 10 and 32. Electrolytes are essentially within normal limits including a potassium of 3.5. LFTs were also normal. Lipase is normal at 26. A CT of the abdomen was performed through the ER on admission, which I have reviewed with the radiologist. There is some dilated small bowel loops noted in the mid abdomen. There was no evidence of any bowel wall thickening or ascites or any inflammatory changes. Subsequent abdominal series was done this morning, which dilated small bowel could not be clearly seen. A gas pattern appears unremarkable. IMPRESSION: 1. At this time is that of a 43-year-old female with multitude of previous abdominal surgeries including bowel resections. 2. Rule out partial small bowel obstruction. RECOMMENDATIONS: Recommend NG tube insertion and NG suctioning. The patient has refused the NG since admission, but after speaking to me and realizing the importance of this, she has tentatively agreed to have the NG inserted. A stress to her that because of her multiple surgeries, reexploration may do her more harm than good and she may end up with multiple complications including fistula formation, bowel perforations, resections, etc. So, the patient now understands this and agrees to have the NG inserted. Once again, we would recommend NG suction, IV fluid hydration, keep the patient n.p.o. We will begin mineral oil insertion through the NG tube. We will monitor clinically and repeat the abdominal series in the morning. We will follow with you. Thank you very much for consultation. JOB# [id number] JANNETTE/SAMMY
[2018-11-09] MEDS ORDERED: LOVENOX SUB-Q SCH (22:00)
--- NOTE | 2018-11-09 22:25 | Progress Note ---
Assessment and Plan Pt with no specific complaints. Called because NG tube could not be inserted. Came in and inserted NG tube without incident. positioning confirmed with flushing of air through francesco syringe and auscultation. also bilious return noted upon connecting to suction. will continue NG suction throughout the night and repeat abd series in am. Objective Vital Signs - 12hr 11/09/18 11/09/18 12:11 17:30 Temperature 98.7 F 98.6 F Pulse Rate 81 75 Respiratory 20 20 Rate Blood Pressure 137/66 155/94 O2 Sat by Pulse 95 99 Oximetry - Labs 11/09/18 10:09 11/09/18 10:09 Diabetes panel 11/09/18 Range/Units 10:09 Sodium 139 (137-145) mmol/L Potassium 3.5 L (3.6-5.0) mmol/L Chloride 104.6 (98-107) mmol/L Carbon Dioxide 22 (22-30) mmol/L BUN 8 (7-17) mg/dL Creatinine 0.7 (0.7-1.2) mg/dL Glucose 92 (65-100) mg/dL Calcium 8.4 (8.4-10.2) mg/dL Calcium panel 11/09/18 Range/Units 10:09 Calcium 8.4 (8.4-10.2) mg/dL Phosphorus 3.20 (2.5-4.5) mg/dL Pituitary panel 11/09/18 Range/Units 10:09 Sodium 139 (137-145) mmol/L Potassium 3.5 L (3.6-5.0) mmol/L Chloride 104.6 (98-107) mmol/L Carbon Dioxide 22 (22-30) mmol/L BUN 8 (7-17) mg/dL Creatinine 0.7 (0.7-1.2) mg/dL Glucose 92 (65-100) mg/dL Calcium 8.4 (8.4-10.2) mg/dL Adrenal panel 11/09/18 Range/Units 10:09 Sodium 139 (137-145) mmol/L Potassium 3.5 L (3.6-5.0) mmol/L Chloride 104.6 (98-107) mmol/L Carbon Dioxide 22 (22-30) mmol/L BUN 8 (7-17) mg/dL Creatinine 0.7 (0.7-1.2) mg/dL Glucose 92 (65-100) mg/dL Calcium 8.4 (8.4-10.2) mg/dL
[2018-11-09] MEDS ORDERED: CHLORASEPTIC MM PRN (22:30)
[2018-11-09] MEDS ORDERED: PEPCID IV SCH (23:00)
[2018-11-10] MEDS: DILAUDID IV PRN ×8 (00:18→21:05)
[2018-11-10] MEDS: BENADRYL IV PRN ×4 (00:18→17:53)
[2018-11-10] MEDS: ZOFRAN IV PRN ×3 (00:18→17:53)
[2018-11-10] MEDS: MINERAL OIL PO SCH ×6 (03:13→21:05)
[2018-11-10] MEDS: D5W/NS W/KCL 20MEQ 20 MEQ/1,000 ML BAG IV SCH ×2 (03:15→09:18)
[2018-11-10] MEDS: HEPARIN SUB-Q SCH ×3 (06:14→21:05)
[2018-11-10 07:21] LABS: Basophils % (Auto) 0.5 % (0.0-1.8); Eosinophils # (Auto) 0.1 K/mm3 (0.0-0.4); Eosinophils % (Auto) 1.6 % (0.0-4.3); Hematocrit 30.3 % (30.3-42.9); Hemoglobin 10.2 gm/dl (10.1-14.3); Lymphocytes # (Auto) 1.5 K/mm3 (1.2-5.4); Lymphocytes % (Auto) 36.4 % (13.4-35.0); Mean Corpuscular HGB Conc 34 % (30-34); Mean Corpuscular Volume 81 fl (79-97); Monocytes # (Auto) 0.5 K/mm3 (0.0-0.8); Monocytes % (Auto) 13.2 % (0.0-7.3); Platelet Count 164 K/mm3 (140-440); Red Blood Count 3.76 M/mm3 (3.65-5.03); Red Cell Distribution Width 14.9 % (13.2-15.2)
[2018-11-10 07:43] LABS: Alanine Aminotransferase 24 units/L (7-56); Albumin 4.1 g/dL (3.9-5); BUN/Creatinine Ratio 5; Blood Urea Nitrogen 3 mg/dL (7-17); Calcium 8.7 mg/dL (8.4-10.2); Hemolysis Index 3
--- NOTE | 2018-11-10 09:12 | XRay Report ---
ABDOMEN 4 VIEW(S) INDICATION / CLINICAL INFORMATION: Acute abdominal pain, concern for small bowel obstruction. COMPARISON: KUB from yesterday FINDINGS: TUBES / LINES: NG tube terminates in the proximal to mid stomach. Right-sided Port-A-Cath is in satis factory position at the cavoatrial junction. BOWEL GAS PATTERN: No significant abnormality. FREE AIR / EXTRALUMINAL GAS: None seen. ADDITIONAL FINDINGS: Clear lungs with normal heart size. Previous cholecystectomy noted and also post operative change in the lower mid pelvis. IMPRESSION: 1. No significant abnormality. 2. Support devices as above. Signer Name: Demian Garcia MD Signed: 11/10/2018 9:07 AM Workstation Name: [id number]
[2018-11-10] MEDS: ATIVAN IV PRN ×2 (09:16→23:45)
[2018-11-10] MEDS: SODIUM CHLORIDE FLUSH SYRINGE 10 ML IV SCH ×2 (09:17→21:05)
[2018-11-10] MEDS: PEPCID IV SCH ×2 (10:00→21:04)
--- NOTE | 2018-11-10 13:20 | Progress Note ---
Assessment and Plan Pt feeling "slightly better" less distended. neg BM Abd less distended. decreased tenderness Abd series - much improved. partial sbo. clinically improving stable continue present care will possibly d/c ng in am if positive flatus. will subsequently need a SBFT study prior to attempting po intake Selected Entries 11/10/18 11:57 Temperature 98.6 F Pulse Rate 76 Respiratory 18 Rate Blood Pressure 134/85 Laboratory Tests 11/09/18 11/10/18 11/10/18 10:09 06:42 06:52 WBC 4.1 L Hgb 10.4 10.2 Hct 32.1 30.3 Potassium 3.4 L Objective Vital Signs - 12hr 11/10/18 11/10/18 06:19 11:57 Temperature 99.7 F H 98.6 F Pulse Rate 77 76 Respiratory 18 18 Rate Blood Pressure 140/91 134/85 O2 Sat by Pulse 100 100 Oximetry - Labs 11/10/18 06:52 11/10/18 06:42 Diabetes panel 11/10/18 Range/Units 06:42 Sodium 139 (137-145) mmol/L Potassium 3.4 L (3.6-5.0) mmol/L Chloride 102.7 (98-107) mmol/L Carbon Dioxide 25 (22-30) mmol/L BUN 3 L (7-17) mg/dL Creatinine 0.6 L (0.7-1.2) mg/dL Glucose 99 (65-100) mg/dL Calcium 8.7 (8.4-10.2) mg/dL AST 58 H (5-40) units/L ALT 24 (7-56) units/L Alkaline Phosphatase 61 (35-129) units/L Total Protein 6.6 (6.3-8.2) g/dL Albumin 4.1 (3.9-5) g/dL Calcium panel 11/10/18 Range/Units 06:42 Calcium 8.7 (8.4-10.2) mg/dL Albumin 4.1 (3.9-5) g/dL Pituitary panel 11/10/18 Range/Units 06:42 Sodium 139 (137-145) mmol/L Potassium 3.4 L (3.6-5.0) mmol/L Chloride 102.7 (98-107) mmol/L Carbon Dioxide 25 (22-30) mmol/L BUN 3 L (7-17) mg/dL Creatinine 0.6 L (0.7-1.2) mg/dL Glucose 99 (65-100) mg/dL Calcium 8.7 (8.4-10.2) mg/dL Adrenal panel 11/10/18 Range/Units 06:42 Sodium 139 (137-145) mmol/L Potassium 3.4 L (3.6-5.0) mmol/L Chloride 102.7 (98-107) mmol/L Carbon Dioxide 25 (22-30) mmol/L BUN 3 L (7-17) mg/dL Creatinine 0.6 L (0.7-1.2) mg/dL Glucose 99 (65-100) mg/dL Calcium 8.7 (8.4-10.2) mg/dL Total Bilirubin 0.30 (0.1-1.2) mg/dL AST 58 H (5-40) units/L ALT 24 (7-56) units/L Alkaline Phosphatase 61 (35-129) units/L Total Protein 6.6 (6.3-8.2) g/dL Albumin 4.1 (3.9-5) g/dL
--- NOTE | 2018-11-10 17:33 | Progress Note ---
Assessment and Plan Assessment and plan: Small bowel obstruction. Improving NPO iv fluids NG tube to suction Surgeon, Dr. Eason following She states she has had bowel obstruction many times always managed conservatively GERD Protonix Chronic pancreatitis Supportive care History of lymphoma of lung History of ovarian cancer Full code status History Interval history: Abdominal pain No more vomiting - has NG tube in has not passed gas or stool yet History of bowel obstruction multiple times Hospitalist Physical - Physical exam Narrative exam: Gen: Not in acute distress, lying in bed HEENT: Normocephalic, atraumatic Neck: supple, no JVD Heart: S1 and S2 reg, no murmurs, rubs or gallop Lungs: Clear, no crackles, no wheeze Abd: soft, tender, distended, reduced bowel sounds Ext: No edema, no clubbing, no cyanosis, Neuro: Awake,alert, moves all ext, non focal - Constitutional Vitals: Temp Pulse Resp BP Pulse Ox 98.6 F 76 18 134/85 100 11/10/18 11:57 11/10/18 11:57 11/10/18 11:57 11/10/18 11:57 11/10/18 11:57 General appearance: Present: no acute distress, well-nourished Results - Labs CBC & Chem 7: 11/10/18 06:52 11/10/18 06:42 Labs: Laboratory Last Values WBC 4.1 K/mm3 (4.5-11.0) L 11/10/18 06:52 RBC 3.76 M/mm3 (3.65-5.03) 11/10/18 06:52 Hgb 10.2 gm/dl (10.1-14.3) 11/10/18 06:52 Hct 30.3 % (30.3-42.9) 11/10/18 06:52 MCV 81 fl (79-97) 11/10/18 06:52 MCH 27 pg (28-32) L 11/10/18 06:52 MCHC 34 % (30-34) 11/10/18 06:52 RDW 14.9 % (13.2-15.2) 11/10/18 06:52 Plt Count 164 K/mm3 (140-440) 11/10/18 06:52 Lymph % (Auto) 36.4 % (13.4-35.0) H 11/10/18 06:52 [place] % (Auto) 13.2 % (0.0-7.3) H 11/10/18 06:52 Eos % (Auto) 1.6 % (0.0-4.3) 11/10/18 06:52 Baso % (Auto) 0.5 % (0.0-1.8) 11/10/18 06:52 Lymph # 1.5 K/mm3 (1.2-5.4) 11/10/18 06:52 [place] # 0.5 K/mm3 (0.0-0.8) 11/10/18 06:52 Eos # 0.1 K/mm3 (0.0-0.4) 11/10/18 06:52 Baso # 0.0 K/mm3 (0.0-0.1) 11/10/18 06:52 Seg Neutrophils % 48.3 % (40.0-70.0) 11/10/18 06:52 Seg Neutrophils # 2.0 K/mm3 (1.8-7.7) 11/10/18 06:52 Sodium 139 mmol/L (137-145) 11/10/18 06:42 Potassium 3.4 mmol/L (3.6-5.0) L 11/10/18 06:42 Chloride 102.7 mmol/L (98-107) 11/10/18 06:42 Carbon Dioxide 25 mmol/L (22-30) 11/10/18 06:42 15 mmol/L 11/10/18 06:42 BUN 3 mg/dL (7-17) L 11/10/18 06:42 0.6 mg/dL (0.7-1.2) L 11/10/18 06:42 Estimated GFR > 60 ml/min 11/10/18 06:42 5 % 11/10/18 06:42 Glucose 99 mg/dL (65-100) 11/10/18 06:42 Calcium 8.7 mg/dL (8.4-10.2) 11/10/18 06:42 Phosphorus 3.20 mg/dL (2.5-4.5) 11/09/18 10:09 Magnesium 1.80 mg/dL (1.7-2.3) 11/09/18 10:09 0.30 mg/dL (0.1-1.2) 11/10/18 06:42 AST 58 units/L (5-40) H 11/10/18 06:42 ALT 24 units/L (7-56) 11/10/18 06:42 61 units/L (35-129) 11/10/18 06:42 6.6 g/dL (6.3-8.2) 11/10/18 06:42 4.1 g/dL (3.9-5) 11/10/18 06:42 1.6 % 11/10/18 06:42 26 units/L (13-60) 11/08/18 13:09 Active Medications - Current Medications Current Medications: Generic Name Dose Route Start Last Admin Trade Name Freq PRN Reason Stop Dose Admin Diphenhydramine HCl 25 mg 11/09/18 03:14 11/10/18 12:14 Benadryl IV 25 mg Q6H PRN Administration Itching Famotidine 20 mg 11/08/18 16:00 11/10/18 10:00 Pepcid IV Not Given BID VINNIE Heparin Sodium (Porcine) 5,000 unit 11/09/18 22:00 11/10/18 13:35 Heparin SUB-Q Not Given Q8HR VINNIE Hydromorphone HCl 1 mg 11/08/18 15:54 11/10/18 15:11 Dilaudid IV 1 mg Q3H PRN Administration Pain , Severe (7-10) Potassium Chloride/Dextrose/Sod Cl 20 meq in 1,000 mls @ 100 mls/hr 11/09/18 19:00 11/10/18 09:18 D5w/Ns W/Kcl 20meq IV 100 mls/hr DIRECT VINNIE Administration Lorazepam 1 mg 11/09/18 11:58 11/10/18 09:16 Ativan IV 1 mg Q4H PRN Administration Anxiety Mineral Oil 30 ml 11/09/18 18:00 11/10/18 17:11 Mineral Oil PO 30 ml Q4HR VINNIE Administration Ondansetron HCl 4 mg 11/08/18 15:54 11/10/18 09:15 Zofran IV 4 mg Q8H PRN Administration Nausea And Vomiting Phenol 1 spray 11/09/18 22:30 11/10/18 06:15 Chloraseptic MM 1 spray PRN PRN Administration Sore Throat Sodium Chloride 10 ml 11/08/18 22:00 11/10/18 09:17 Sodium Chloride Flush Syringe 10 Ml IV 10 ml BID VINNIE Administration Sodium Chloride 10 ml 11/08/18 15:54 Sodium Chloride Flush Syringe 10 Ml IV PRN PRN LINE FLUSH
[2018-11-11] MEDS: DILAUDID IV PRN ×8 (00:16→23:18)
[2018-11-11] MEDS: BENADRYL IV PRN ×4 (00:16→19:59)
[2018-11-11] MEDS: MINERAL OIL PO SCH ×5 (02:17→23:17)
[2018-11-11] MEDS: ZOFRAN IV PRN (03:34)
[2018-11-11] MEDS: HEPARIN SUB-Q SCH ×3 (05:42→23:17)
[2018-11-11 06:16] LABS: BUN/Creatinine Ratio 4; Blood Urea Nitrogen 3 mg/dL (7-17); Calcium 8.8 mg/dL (8.4-10.2); Hemolysis Index 3
[2018-11-11] MEDS: D5W/NS W/KCL 20MEQ 20 MEQ/1,000 ML BAG IV SCH ×2 (07:23→18:20)
[2018-11-11] MEDS: ATIVAN IV PRN ×3 (07:33→23:18)
[2018-11-11] MEDS: KCL 10MEQ/100ML 10 MEQ/100 ML BAG IV SCH ×2 (10:00→13:55)
[2018-11-11] MEDS: SODIUM CHLORIDE FLUSH SYRINGE 10 ML IV SCH ×2 (10:01→23:20)
[2018-11-11] MEDS: PEPCID IV SCH ×2 (10:01→23:18)
--- NOTE | 2018-11-11 13:04 | Progress Note ---
Assessment and Plan Pt pulled out ng last night. states passing flatus but no BM Abd softer. non tender surgically stable keep NPO except for po mineral oil and po meds replenish K repeat abd series in am Selected Entries 11/11/18 04:26 Temperature 99.3 F Pulse Rate 88 Respiratory 20 Rate Blood Pressure 118/77 Laboratory Tests 11/11/18 05:27 Potassium 3.1 L Objective Vital Signs - 12hr 11/11/18 11/11/18 03:34 04:26 Temperature 99.3 F Pulse Rate 88 Respiratory 17 20 Rate Blood Pressure 118/77 O2 Sat by Pulse 98 Oximetry - Labs 11/10/18 06:52 11/11/18 05:27 Diabetes panel 11/11/18 Range/Units 05:27 Sodium 142 (137-145) mmol/L Potassium 3.1 L (3.6-5.0) mmol/L Chloride 102.4 (98-107) mmol/L Carbon Dioxide 27 (22-30) mmol/L BUN 3 L (7-17) mg/dL Creatinine 0.7 (0.7-1.2) mg/dL Glucose 98 (65-100) mg/dL Calcium 8.8 (8.4-10.2) mg/dL Calcium panel 11/11/18 Range/Units 05:27 Calcium 8.8 (8.4-10.2) mg/dL Pituitary panel 11/11/18 Range/Units 05:27 Sodium 142 (137-145) mmol/L Potassium 3.1 L (3.6-5.0) mmol/L Chloride 102.4 (98-107) mmol/L Carbon Dioxide 27 (22-30) mmol/L BUN 3 L (7-17) mg/dL Creatinine 0.7 (0.7-1.2) mg/dL Glucose 98 (65-100) mg/dL Calcium 8.8 (8.4-10.2) mg/dL Adrenal panel 11/11/18 Range/Units 05:27 Sodium 142 (137-145) mmol/L Potassium 3.1 L (3.6-5.0) mmol/L Chloride 102.4 (98-107) mmol/L Carbon Dioxide 27 (22-30) mmol/L BUN 3 L (7-17) mg/dL Creatinine 0.7 (0.7-1.2) mg/dL Glucose 98 (65-100) mg/dL Calcium 8.8 (8.4-10.2) mg/dL
--- NOTE | 2018-11-11 15:06 | Progress Note ---
Assessment and Plan Assessment and plan: Small bowel obstruction. Improving NPO iv fluids NG tube was to suction, but now out - she refused Surgeon, Dr. Eason following She states she has had bowel obstruction many times always managed conservat ively GERD Protonix Chronic pancreatitis Supportive care History of lymphoma of lung History of ovarian cancer Full code status History Interval history: Less Abdominal pain No more vomiting Refused NG tube History of bowel obstruction multiple times Hospitalist Physical - Physical exam Narrative exam: Gen: Not in acute distress, lying in bed HEENT: Normocephalic, atraumatic Neck: supple, no JVD Heart: S1 and S2 reg, no murmurs, rubs or gallop Lungs: Clear, no crackles, no wheeze Abd: soft, tender, mild distended, reduced bowel sounds Ext: No edema, no clubbing, no cyanosis, Neuro: Awake,alert, moves all ext, non focal - Constitutional Vitals: Temp Pulse Resp BP Pulse Ox 98.7 F 77 16 121/71 100 11/11/18 12:10 11/11/18 12:10 11/11/18 12:10 11/11/18 12:10 11/11/18 12:10 General appearance: Present: no acute distress, well-nourished Results - Labs CBC & Chem 7: 11/10/18 06:52 11/11/18 05:27 Labs: Laboratory Last Values WBC 4.1 K/mm3 (4.5-11.0) L 11/10/18 06:52 RBC 3.76 M/mm3 (3.65-5.03) 11/10/18 06:52 Hgb 10.2 gm/dl (10.1-14.3) 11/10/18 06:52 Hct 30.3 % (30.3-42.9) 11/10/18 06:52 MCV 81 fl (79-97) 11/10/18 06:52 MCH 27 pg (28-32) L 11/10/18 06:52 MCHC 34 % (30-34) 11/10/18 06:52 RDW 14.9 % (13.2-15.2) 11/10/18 06:52 Plt Count 164 K/mm3 (140-440) 11/10/18 06:52 Lymph % (Auto) 36.4 % (13.4-35.0) H 11/10/18 06:52 [place] % (Auto) 13.2 % (0.0-7.3) H 11/10/18 06:52 Eos % (Auto) 1.6 % (0.0-4.3) 11/10/18 06:52 Baso % (Auto) 0.5 % (0.0-1.8) 11/10/18 06:52 Lymph # 1.5 K/mm3 (1.2-5.4) 11/10/18 06:52 [place] # 0.5 K/mm3 (0.0-0.8) 11/10/18 06:52 Eos # 0.1 K/mm3 (0.0-0.4) 11/10/18 06:52 Baso # 0.0 K/mm3 (0.0-0.1) 11/10/18 06:52 Seg Neutrophils % 48.3 % (40.0-70.0) 11/10/18 06:52 Seg Neutrophils # 2.0 K/mm3 (1.8-7.7) 11/10/18 06:52 Sodium 142 mmol/L (137-145) 11/11/18 05:27 Potassium 3.1 mmol/L (3.6-5.0) L 11/11/18 05:27 Chloride 102.4 mmol/L (98-107) 11/11/18 05:27 Carbon Dioxide 27 mmol/L (22-30) 11/11/18 05:27 16 mmol/L 11/11/18 05:27 BUN 3 mg/dL (7-17) L 11/11/18 05:27 0.7 mg/dL (0.7-1.2) 11/11/18 05:27 Estimated GFR > 60 ml/min 11/11/18 05:27 4 % 11/11/18 05:27 Glucose 98 mg/dL (65-100) 11/11/18 05:27 Calcium 8.8 mg/dL (8.4-10.2) 11/11/18 05:27 Phosphorus 3.20 mg/dL (2.5-4.5) 11/09/18 10:09 Magnesium 1.80 mg/dL (1.7-2.3) 11/09/18 10:09 0.30 mg/dL (0.1-1.2) 11/10/18 06:42 AST 58 units/L (5-40) H 11/10/18 06:42 ALT 24 units/L (7-56) 11/10/18 06:42 61 units/L (35-129) 11/10/18 06:42 6.6 g/dL (6.3-8.2) 11/10/18 06:42 4.1 g/dL (3.9-5) 11/10/18 06:42 1.6 % 11/10/18 06:42 26 units/L (13-60) 11/08/18 13:09 Active Medications - Current Medications Current Medications: Generic Name Dose Route Start Last Admin Trade Name Freq PRN Reason Stop Dose Admin Diphenhydramine HCl 25 mg 11/09/18 03:14 11/11/18 13:06 Benadryl IV 25 mg Q6H PRN Administration Itching Famotidine 20 mg 11/08/18 16:00 11/11/18 10:01 Pepcid IV Not Given BID VINNIE Heparin Sodium (Porcine) 5,000 unit 11/09/18 22:00 11/11/18 13:57 Heparin SUB-Q Not Given Q8HR VINNIE Hydromorphone HCl 1 mg 11/08/18 15:54 11/11/18 13:06 Dilaudid IV 1 mg Q3H PRN Administration Pain , Severe (7-10) Potassium Chloride/Dextrose/Sod Cl 20 meq in 1,000 mls @ 100 mls/hr 11/09/18 19:00 11/11/18 07:23 D5w/Ns W/Kcl 20meq IV 100 mls/hr DIRECT VINNIE Administration Lorazepam 1 mg 11/09/18 11:58 11/11/18 14:59 Ativan IV 1 mg Q4H PRN Administration Anxiety Mineral Oil 30 ml 11/11/18 22:00 Mineral Oil PO Q8HR VINNIE Ondansetron HCl 4 mg 11/08/18 15:54 11/11/18 03:34 Zofran IV 4 mg Q8H PRN Administration Nausea And Vomiting Phenol 1 spray 11/09/18 22:30 11/10/18 06:15 Chloraseptic MM 1 spray PRN PRN Administration Sore Throat Sodium Chloride 10 ml 11/08/18 22:00 07/07/19 10:01 Sodium Chloride Flush Syringe 10 Ml IV 10 ml BID VINNIE Administration Sodium Chloride 10 ml 11/08/18 15:54 Sodium Chloride Flush Syringe 10 Ml IV PRN PRN LINE FLUSH
[2018-11-12] MEDS: DILAUDID IV PRN ×7 (02:21→23:59)
[2018-11-12] MEDS: BENADRYL IV PRN ×3 (02:22→15:36)
[2018-11-12] MEDS: ATIVAN IV PRN ×3 (04:23→15:37)
[2018-11-12] MEDS: ZOFRAN IV PRN ×3 (06:08→20:49)
[2018-11-12] MEDS: MINERAL OIL PO SCH (06:08)
[2018-11-12] MEDS: HEPARIN SUB-Q SCH ×3 (06:08→21:00)
--- NOTE | 2018-11-12 10:17 | XRay Report ---
ABDOMINAL SERIES INDICATION / CLINICAL INFORMATION: Small bowel obstruction. COMPARISON: 11/10/2018 FINDINGS: TUBES / LINES: A nasogastric tube has been removed BOWEL GAS PATTERN: No significant abnormality. FREE AIR / EXTRALUMINAL GAS: None seen. ADDITIONAL FINDINGS: Cholecystectomy clips are noted in the right upper quadrant. Mild scoliosis. IMPRESSION: 1. No significant abnormality. Signer Name: Rich Mesa Jr, MD Signed: 11/12/2018 10:13 AM Workstation Name: [id number]
[2018-11-12 11:28] LABS: BUN/Creatinine Ratio 3; Blood Urea Nitrogen 2 mg/dL (7-17); Calcium 9.4 mg/dL (8.4-10.2); Hemolysis Index 4
[2018-11-12] MEDS: SODIUM CHLORIDE FLUSH SYRINGE 10 ML IV SCH ×2 (11:47→20:59)
[2018-11-12] MEDS: PEPCID IV SCH ×2 (11:47→21:00)
--- NOTE | 2018-11-12 12:41 | Progress Note ---
Assessment and Plan Assessment and plan: Patient is 43 yo with history of multiple surgeries, multiple bowel obstruction managed conservatively. She presents with nausea, vomiting, abdominal pain, diagnosed with small bowel obstruction. Patient was made NPO, started on iv fluids, admitted, evaluated by Dr. Eason. Small bowel obstruction. Improving NPO iv fluids NG tube was to suction, but now out - she refused Surgeon, Dr. Eason following Abd X ray show resolving but patient has not passed gas or bowel movement yet She states she has had bowel obstruction many times always managed conservatively GERD Protonix Chronic pancreatitis Supportive care History of lymphoma of lung History of ovarian cancer Full code status Dispo: For small bowel follow through test tomorrow and proceed as per surgeon. History Interval history: Less Abdominal pain No more vomiting Refused NG tube History of bowel obstruction multiple times Hospitalist Physical - Physical exam Narrative exam: Gen: Not in acute distress, lying in bed HEENT: Normocephalic, atraumatic Neck: supple, no JVD Heart: S1 and S2 reg, no murmurs, rubs or gallop Lungs: Clear, no crackles, no wheeze Abd: soft, tender, mild distended, reduced bowel sounds Ext: No edema, no clubbing, no cyanosis, Neuro: Awake,alert, moves all ext, non focal - Constitutional Vitals: Temp Pulse Resp BP Pulse Ox 98.6 F 77 24 151/86 97 11/12/18 05:05 11/12/18 05:05 11/12/18 05:05 11/12/18 05:05 11/12/18 05:05 General appearance: Present: no acute distress, well-nourished Results - Labs CBC & Chem 7: 11/10/18 06:52 11/12/18 10:30 Labs: Laboratory Last Values WBC 4.1 K/mm3 (4.5-11.0) L 11/10/18 06:52 RBC 3.76 M/mm3 (3.65-5.03) 11/10/18 06:52 Hgb 10.2 gm/dl (10.1-14.3) 11/10/18 06:52 Hct 30.3 % (30.3-42.9) 11/10/18 06:52 MCV 81 fl (79-97) 11/10/18 06:52 MCH 27 pg (28-32) L 11/10/18 06:52 MCHC 34 % (30-34) 11/10/18 06:52 RDW 14.9 % (13.2-15.2) 11/10/18 06:52 Plt Count 164 K/mm3 (140-440) 11/10/18 06:52 Lymph % (Auto) 36.4 % (13.4-35.0) H 11/10/18 06:52 [place] % (Auto) 13.2 % (0.0-7.3) H 11/10/18 06:52 Eos % (Auto) 1.6 % (0.0-4.3) 11/10/18 06:52 Baso % (Auto) 0.5 % (0.0-1.8) 11/10/18 06:52 Lymph # 1.5 K/mm3 (1.2-5.4) 11/10/18 06:52 [place] # 0.5 K/mm3 (0.0-0.8) 11/10/18 06:52 Eos # 0.1 K/mm3 (0.0-0.4) 11/10/18 06:52 Baso # 0.0 K/mm3 (0.0-0.1) 11/10/18 06:52 Seg Neutrophils % 48.3 % (40.0-70.0) 11/10/18 06:52 Seg Neutrophils # 2.0 K/mm3 (1.8-7.7) 11/10/18 06:52 Sodium 141 mmol/L (137-145) 11/12/18 10:30 Potassium 3.7 mmol/L (3.6-5.0) 11/12/18 10:30 Chloride 103.3 mmol/L (98-107) 11/12/18 10:30 Carbon Dioxide 26 mmol/L (22-30) 11/12/18 10:30 15 mmol/L 11/12/18 10:30 BUN 2 mg/dL (7-17) L 11/12/18 10:30 0.8 mg/dL (0.7-1.2) 11/12/18 10:30 Estimated GFR > 60 ml/min 11/12/18 10:30 3 % 11/12/18 10:30 Glucose 124 mg/dL (65-100) H 11/12/18 10:30 Calcium 9.4 mg/dL (8.4-10.2) 11/12/18 10:30 Phosphorus 3.20 mg/dL (2.5-4.5) 11/09/18 10:09 Magnesium 1.80 mg/dL (1.7-2.3) 11/09/18 10:09 0.30 mg/dL (0.1-1.2) 11/10/18 06:42 AST 58 units/L (5-40) H 11/10/18 06:42 ALT 24 units/L (7-56) 11/10/18 06:42 61 units/L (35-129) 11/10/18 06:42 6.6 g/dL (6.3-8.2) 11/10/18 06:42 4.1 g/dL (3.9-5) 11/10/18 06:42 1.6 % 11/10/18 06:42 26 units/L (13-60) 11/08/18 13:09 Active Medications - Current Medications Current Medications: Generic Name Dose Route Start Last Admin Trade Name Freq PRN Reason Stop Dose Admin Diphenhydramine HCl 25 mg 11/09/18 03:14 11/12/18 09:37 Benadryl IV 25 mg Q6H PRN Administration Itching Famotidine 20 mg 11/08/18 16:00 11/12/18 11:47 Pepcid IV Not Given BID VINNIE Heparin Sodium (Porcine) 5,000 unit 11/09/18 22:00 11/12/18 06:08 Heparin SUB-Q Not Given Q8HR VINNIE Hydromorphone HCl 1 mg 11/08/18 15:54 11/12/18 09:33 Dilaudid IV 1 mg Q3H PRN Administration Pain , Severe (7-10) Potassium Chloride/Dextrose/Sod Cl 20 meq in 1,000 mls @ 100 mls/hr 11/09/18 19:00 11/11/18 18:20 D5w/Ns W/Kcl 20meq IV 100 mls/hr DIRECT VINNIE Administration Lorazepam 1 mg 11/09/18 11:58 11/12/18 08:25 Ativan IV 1 mg Q4H PRN Administration Anxiety Mineral Oil 30 ml 11/11/18 22:00 11/12/18 06:08 Mineral Oil PO 30 ml Q8HR VINNIE Administration Ondansetron HCl 4 mg 11/08/18 15:54 11/12/18 06:08 Zofran IV 4 mg Q8H PRN Administration Nausea And Vomiting Phenol 1 spray 11/09/18 22:30 11/10/18 06:15 Chloraseptic MM 1 spray PRN PRN Administration Sore Throat Sodium Chloride 10 ml 11/08/18 22:00 11/12/18 11:47 Sodium Chloride Flush Syringe 10 Ml IV 10 ml BID VINNIE Administration Sodium Chloride 10 ml 11/08/18 15:54 Sodium Chloride Flush Syringe 10 Ml IV PRN PRN LINE FLUSH
--- NOTE | 2018-11-12 13:02 | Progress Note ---
Assessment and Plan Pt feeling well. + BM's Abd soft. very minimal distention. non tender Abd series - partial sbo appears to have resolved resolving partial sbo proceed with SBFT in am will begin cl liq diet in am if study wnl Selected Entries 11/11/18 11/12/18 22:48 05:05 Temperature 98.6 F Pulse Rate 77 Respiratory 18 Rate Blood Pressure 151/86 Laboratory Tests 11/12/18 10:30 Potassium 3.7 Objective Vital Signs - 12hr 11/12/18 05:05 Temperature 98.6 F Pulse Rate 77 Respiratory 24 Rate Blood Pressure 151/86 O2 Sat by Pulse 97 Oximetry - Labs 11/10/18 06:52 11/12/18 10:30 Diabetes panel 11/12/18 Range/Units 10:30 Sodium 141 (137-145) mmol/L Potassium 3.7 (3.6-5.0) mmol/L Chloride 103.3 (98-107) mmol/L Carbon Dioxide 26 (22-30) mmol/L BUN 2 L (7-17) mg/dL Creatinine 0.8 (0.7-1.2) mg/dL Glucose 124 H (65-100) mg/dL Calcium 9.4 (8.4-10.2) mg/dL Calcium panel 11/12/18 Range/Units 10:30 Calcium 9.4 (8.4-10.2) mg/dL Pituitary panel 11/12/18 Range/Units 10:30 Sodium 141 (137-145) mmol/L Potassium 3.7 (3.6-5.0) mmol/L Chloride 103.3 (98-107) mmol/L Carbon Dioxide 26 (22-30) mmol/L BUN 2 L (7-17) mg/dL Creatinine 0.8 (0.7-1.2) mg/dL Glucose 124 H (65-100) mg/dL Calcium 9.4 (8.4-10.2) mg/dL Adrenal panel 11/12/18 Range/Units 10:30 Sodium 141 (137-145) mmol/L Potassium 3.7 (3.6-5.0) mmol/L Chloride 103.3 (98-107) mmol/L Carbon Dioxide 26 (22-30) mmol/L BUN 2 L (7-17) mg/dL Creatinine 0.8 (0.7-1.2) mg/dL Glucose 124 H (65-100) mg/dL Calcium 9.4 (8.4-10.2) mg/dL
[2018-11-13] MEDS: DILAUDID IV PRN ×6 (04:25→21:44)
[2018-11-13] MEDS: HEPARIN SUB-Q SCH ×3 (05:28→21:43)
[2018-11-13 06:25] LABS: BUN/Creatinine Ratio 5; Blood Urea Nitrogen 4 mg/dL (7-17); Calcium 8.8 mg/dL (8.4-10.2); Hemolysis Index 1
[2018-11-13] MEDS: D5W/NS W/KCL 20MEQ 20 MEQ/1,000 ML BAG IV SCH (06:56)
[2018-11-13] MEDS: BENADRYL IV PRN ×4 (07:14→21:46)
[2018-11-13] MEDS: ZOFRAN IV PRN ×2 (07:14→21:44)
[2018-11-13] MEDS: ATIVAN IV PRN ×3 (08:30→21:44)
[2018-11-13] MEDS: SODIUM CHLORIDE FLUSH SYRINGE 10 ML IV SCH ×2 (11:47→22:02)
[2018-11-13] MEDS: PEPCID IV SCH (11:47)
--- NOTE | 2018-11-13 11:55 | Progress Note ---
Assessment and Plan Pt currently in restroom. no specific compl SBFT - good transit time into colon a 1 hr 15 min. no evidence of small bowel distention or osbtruction stable attempt cl liq diet no carbonated drinks Selected Entries 11/13/18 06:16 Temperature 98.3 F Pulse Rate 68 O2 Sat by Pulse 99 Oximetry Blood Pressure 132/69 Laboratory Tests 11/13/18 05:10 Potassium 3.6 Objective Vital Signs - 12hr 11/13/18 06:16 Temperature 98.3 F Pulse Rate 68 Respiratory 20 Rate Blood Pressure 132/69 O2 Sat by Pulse 99 Oximetry - Labs 11/10/18 06:52 11/13/18 05:10 Diabetes panel 11/13/18 Range/Units 05:10 Sodium 141 (137-145) mmol/L Potassium 3.6 (3.6-5.0) mmol/L Chloride 102.1 (98-107) mmol/L Carbon Dioxide 27 (22-30) mmol/L BUN 4 L (7-17) mg/dL Creatinine 0.8 (0.7-1.2) mg/dL Glucose 93 (65-100) mg/dL Calcium 8.8 (8.4-10.2) mg/dL Calcium panel 11/13/18 Range/Units 05:10 Calcium 8.8 (8.4-10.2) mg/dL Pituitary panel 11/13/18 Range/Units 05:10 Sodium 141 (137-145) mmol/L Potassium 3.6 (3.6-5.0) mmol/L Chloride 102.1 (98-107) mmol/L Carbon Dioxide 27 (22-30) mmol/L BUN 4 L (7-17) mg/dL Creatinine 0.8 (0.7-1.2) mg/dL Glucose 93 (65-100) mg/dL Calcium 8.8 (8.4-10.2) mg/dL Adrenal panel 11/13/18 Range/Units 05:10 Sodium 141 (137-145) mmol/L Potassium 3.6 (3.6-5.0) mmol/L Chloride 102.1 (98-107) mmol/L Carbon Dioxide 27 (22-30) mmol/L BUN 4 L (7-17) mg/dL Creatinine 0.8 (0.7-1.2) mg/dL Glucose 93 (65-100) mg/dL Calcium 8.8 (8.4-10.2) mg/dL
--- NOTE | 2018-11-13 12:44 | Fluoroscopy Report ---
SMALL BOWEL FOLLOW-THROUGH HISTORY: Small bowel obstruction, abdominal pain, abdominal distention. TECHNIQUE: Single contrast barium technique utilized to evaluate the small bowel. FINDINGS: Small bowel transit time was 60 minutes which is normal. No fold thickening, mass, mass e ffect, stenosis, or obstruction. The descending duodenum remain slightly prominent throughout this ex am which is of uncertain significance. This may be secondary to the vertex internal compression. The terminal ileum is normal in appearance. IMPRESSION: Unremarkable exam. FLUOROSCOPIC TIME: 1.1 minutes NUMBER OF FLUOROSCOPIC IMAGES: 4 Signer Name: Rich Mesa Jr, MD Signed: 11/13/2018 12:40 PM Workstation Name: [id number]
--- NOTE | 2018-11-13 13:47 | Progress Note ---
Assessment and Plan /Small bowel obstruction. Improving, cont iv fluids s/p NPO, NG tube was to suction, but now out - she refused Surgeon, Dr. Eason following s/p SB follow through today - was normal, start clear liquid today /GERD, Protonix /Chronic pancreatitis, Supportive care History of lymphoma of lung, outpt follow up History of ovarian cancer, outpt followup Full code status Dispo: as per surgeon. Brief history: Patient is 43 yo with history of multiple surgeries, multiple bowel obstruction managed conservatively. She presents with nausea, vomiting, abdominal pain, diagnosed with small bowel obstruction. Patient was made NPO, started on iv fluids, admitted, evaluated by Dr. Eason. Hospitalist Physical Gen: Not in acute distress, lying in bed HEENT: Normocephalic, atraumatic Neck: supple, no JVD Heart: S1 and S2 reg, no murmurs, rubs or gallop Lungs: Clear, no crackles, no wheeze Abd: soft, non-tender, mild distended, reduced bowel sounds Ext: No edema, no clubbing, no cyanosis, Neuro: Awake,alert, moves all ext, non focal Subjective Date of service: 11/13/18 Interval history: Patient seen and examined. Medical records and medication list reviewed. No acute event overnight noted by the RN. Patient denies any chest pain or difficulty breathing. Patient complaining of nausea. Discussed plan of care at bedside with patient. Objective - Constitutional Vitals: Vital Signs - 12hr 11/13/18 11/13/18 06:16 12:03 Temperature 98.3 F 98.7 F Pulse Rate 68 83 Respiratory 20 19 Rate Blood Pressure 132/69 141/90 O2 Sat by Pulse 99 92 Oximetry - Labs CBC & Chem 7: 11/10/18 06:52 11/13/18 05:10 Labs: Abnormal lab results 11/13/18 Range/Units 05:10 BUN 4 L (7-17) mg/dL
[2018-11-14] MEDS: PEPCID IV SCH ×2 (00:40→09:39)
[2018-11-14] MEDS: DILAUDID IV PRN ×4 (00:45→12:34)
[2018-11-14] MEDS: ATIVAN IV PRN ×2 (03:39→09:40)
[2018-11-14] MEDS: HEPARIN SUB-Q SCH (05:39)
[2018-11-14] MEDS: ZOFRAN IV PRN (07:55)
[2018-11-14] MEDS: D5W/NS W/KCL 20MEQ 20 MEQ/1,000 ML BAG IV SCH (08:43)
[2018-11-14] MEDS: SODIUM CHLORIDE FLUSH SYRINGE 10 ML IV SCH (09:41)
[2018-11-14] MEDS ORDERED: ATIVAN PO PRN (12:40)
[2018-11-14] MEDS ORDERED: PERCOCET 5/325 PO PRN (12:40)
[2018-11-14 12:49] VITALS: BP 141/67
--- NOTE | 2018-11-14 14:40 | Discharge Summary ---
Providers - Providers Date of Admission: 11/08/18 14:47 Date of discharge: 11/14/18 Attending physician: EVANGELISTA CAR 11/08/18 14:39 Consult to Physician [CONS] Urgent Comment: Consulting Provider: SANJUANA EASON Physician Instructions: Reason For Exam: small bowel obstruction Primary care physician: BECKI BROWN Hospitalization Condition: Fair Pertinent studies: Chest/Abdomen x-rays Abdomen and pelvis CT scan Small bowel x-rays Hospital course: Brief history: Patient is 43 yo with history of multiple surgeries, multiple bowel obstruction managed conservatively. She presents with nausea, vomiting, abdominal pain, diagnosed with small bowel obstruction. Patient was made NPO, started on iv fluids, admitted, evaluated by Dr. Eason, recommended NG suction and serial abdominal exam. Her symptom resolved, tolerated dist, had BM, then discharged home in stable condition. Discharge diagnosis and management: /Small bowel obstruction. Resolved with medical Mx, s/p NPO, NG tube was to suction, but now out - as she refused Surgeon, Dr. Eason was following s/p SB follow through on 11/13 - was normal, started on clear liquid then advanced which she tolerated, Had BM Discharged home with outpt f/u /GERD, Protonix /Chronic pancreatitis, Supportive care History of lymphoma of lung, outpt follow up History of ovarian cancer, outpt followup Full code status Dispo: home with outpt f/u with surgeon. Hospitalist Physical Gen: Not in acute distress, lying in bed HEENT: Normocephalic, atraumatic Neck: supple, no JVD Heart: S1 and S2 reg, no murmurs, rubs or gallop Lungs: Clear, no crackles, no wheeze Abd: soft, non-tender, not distended, + bowel sounds Ext: No edema, no clubbing, no cyanosis, Neuro: Awake,alert, moves all ext, non focal Disposition: DC-01 TO HOME OR SELFCARE Time spent for discharge: 34 minutes Core Measure Documentation - Palliative Care Palliative Care/ Comfort Measures: Not Applicable - Core Measures Any of the following diagnoses?: none Exam - Constitutional Vitals: Temp Pulse Resp BP Pulse Ox 98.4 F 70 16 141/67 96 11/14/18 12:25 11/14/18 12:25 11/14/18 12:25 11/14/18 12:25 11/14/18 12:25 Plan Activity: advance as tolerated Weight Bearing Status: Weight Bear as Tolerated Diet: advance as tolerated Follow up with: BECKI BROWN MD [Primary Care Provider] - 3-5 Days Prescriptions: oxyCODONE /ACETAMINOPHEN [Percocet 5/325 mg] 1 tab PO Q6H PRN #4 tablet PRN Reason: Pain, Moderate (4-6) Pantoprazole [Protonix TAB] 40 mg PO QDAY #14 tablet Ondansetron (Nf) [Zofran TAB] 8 mg PO Q8HR PRN #14 tablet PRN Reason: Nausea
== END 2018-11-14 17:00 | disposition home or self-care (01) | DRG 389 ==
LOC: ED 12:26 → 3A 14:47
PROVIDERS: ADMIT Internal Medicine; ATTEND Internal Medicine
PROC: 0D9670Z Drainage of Stomach with Drainage Device, Via Natural or Artificial Opening (ICD-10-PCS; principal; 2018-11-09)
DX: K56.600 Partial intestinal obstruction, unspecified as to cause (principal); K86.1 Other chronic pancreatitis; E86.0 Dehydration; I10 Essential (primary) hypertension; K21.9 Gastro-esophageal reflux disease without esophagitis; F17.210 Nicotine dependence, cigarettes, uncomplicated; J45.909 Unspecified asthma, uncomplicated; K58.9 Irritable bowel syndrome, unspecified; Z90.49 Acquired absence of other specified parts of digestive tract; Z90.710 Acquired absence of both cervix and uterus; Z85.43 Personal history of malignant neoplasm of ovary; Z85.118 Personal history of other malignant neoplasm of bronchus and lung
CPT/HCPCS: 36415; 74018; 74022; 74176; 74250; 80048; 80053; 83690; 83735; 84100; 85025; 85027; G0378; J1170; J1200; J1644; J2060; J2405; J3480; J7030; J7042; Q9963

== ENCOUNTER 2018-12-11 08:57 | Emergency (ER) | payer MEDICAID, OTHER ==
[2018-12-11] MEDS ORDERED: NACL 0.9% 1000 ML 1,000 ML IV ONE ×2 (09:53→10:34)
[2018-12-11] MEDS ORDERED: MORPHINE IV ONE ×2 (10:34→12:04)
[2018-12-11] MEDS ORDERED: BENADRYL IV ONE (10:38)
--- NOTE | 2018-12-11 10:41 | Emergency Department Report ---
ED General Adult HPI - General Chief complaint: Nausea/Vomiting/Diarrhea Stated complaint: ABD PAIN Time Seen by Provider: 12/11/18 09:49 Source: patient, EMS Mode of arrival: Wheelchair Limitations: No Limitations - History of Present Illness Initial comments: Patient presents to the emergency department with a chief complaint of abdominal pain with nausea and vomiting that started this morning. Patient has a history of small bowel obstructions and states she was recently discharged for a SBO. She denies having a bowel movement yesterday but states she had one yesterday -: Sudden Location: abdomen Radiation: non-radiation Severity scale (0 -10): 8 Quality: sharp Consistency: constant Improves with: none Worsens with: none Associated Symptoms: denies other symptoms Treatments Prior to Arrival: none - Related Data Previous Rx's Medication Instructions Recorded Last Taken Type Ondansetron (Nf) [Zofran TAB] 8 mg PO Q8HR PRN #14 tablet 11/14/18 Unknown Rx Pantoprazole [Protonix TAB] 40 mg PO QDAY #14 tablet 11/14/18 Unknown Rx oxyCODONE /ACETAMINOPHEN [Percocet 1 tab PO Q6H PRN #4 tablet 11/14/18 Unknown Rx 5/325 mg] HYDROcodone/APAP 5-325 [[place] 1 each PO Q6HR PRN #12 tablet 12/11/18 Unknown Rx 5/325] Promethazine [Phenergan TAB] 25 mg PO Q6HR PRN #20 tab 12/11/18 Unknown Rx Allergies Allergy/AdvReac Type Severity Reaction Status Date / Time codeine Allergy Itching Verified 09/13/18 07:52 fentanyl Allergy Hives Verified 09/13/18 07:52 ketorolac tromethamine Allergy Itching Verified 09/13/18 07:52 [From Toradol] metoclopramide HCl Allergy Hives Verified 09/13/18 07:52 [From Reglan] morphine Allergy Hives Verified 09/13/18 07:52 ondansetron HCl [From Zofran] Allergy Hives Verified 12/24/16 08:17 prochlorperazine edisylate Allergy Hives Verified 09/13/18 07:52 [From Compazine] prochlorperazine maleate Allergy Hives Verified 09/13/18 07:52 [From Compazine] ED Review of Systems ROS: Stated complaint: ABD PAIN Other details as noted in HPI Comment: All other systems reviewed and negative Constitutional: denies: chills, fever Eyes: denies: eye pain, eye discharge, vision change ENT: denies: ear pain, throat pain Respiratory: denies: cough, shortness of breath, wheezing Cardiovascular: denies: chest pain, palpitations Endocrine: no symptoms reported Gastrointestinal: abdominal pain, nausea, vomiting. denies: diarrhea Genitourinary: denies: urgency, dysuria, discharge Musculoskeletal: denies: back pain, joint swelling, arthralgia Skin: denies: rash, lesions Neurological: denies: headache, weakness, paresthesias Psychiatric: denies: anxiety, depression Hematological/Lymphatic: denies: easy bleeding, easy bruising ED Past Medical Hx - Past Medical History Previous Medical History?: Yes Hx Hypertension: Yes Hx GERD: Yes (Gastroparesis) Hx Renal Disease: Yes (renal failure- now in remission) Hx Kidney Stones: Yes Hx Asthma: Yes Additional medical history: ovarian/lung ca, gastroparesis, IBS, chronic pancreatitis, anemia. (LYMPHOMA LUNG), pyelonephritis, herpes, Small bowel obstruction,. PORT RIGHT CHEST - Surgical History Past Surgical History?: Yes Hx Cholecystectomy: Yes Additional Surgical History: fistula repair, lower bowel dissection, stents (in/out), hysterectomy. Power port - Social History Smoking Status: Light Tobacco Smoker Substance Use Type: None - Medications Home Medications: Home Medications Medication Instructions Recorded Confirmed Last Taken Type Ondansetron (Nf) [Zofran TAB] 8 mg PO Q8HR PRN #14 tablet 11/14/18 Unknown Rx Pantoprazole [Protonix TAB] 40 mg PO QDAY #14 tablet 11/14/18 Unknown Rx oxyCODONE /ACETAMINOPHEN [Percocet 1 tab PO Q6H PRN #4 tablet 11/14/18 Unknown Rx 5/325 mg] HYDROcodone/APAP 5-325 [[place] 1 each PO Q6HR PRN #12 tablet 12/11/18 Unknown Rx 5/325] Promethazine [Phenergan TAB] 25 mg PO Q6HR PRN #20 tab 12/11/18 Unknown Rx ED Physical Exam - General Limitations: No Limitations General appearance: alert, in no apparent distress - Head Head exam: Present: atraumatic, normocephalic - Eye Eye exam: Present: normal appearance - ENT ENT exam: Present: mucous membranes moist - Neck Neck exam: Present: normal inspection - Respiratory Respiratory exam: Present: normal lung sounds bilaterally. Absent: respiratory distress - Cardiovascular Cardiovascular Exam: Present: normal rhythm, tachycardia. Absent: systolic murmur, diastolic murmur, rubs, gallop - GI/Abdominal GI/Abdominal exam: Present: soft, tenderness (diffusely ), normal bowel sounds. Absent: distended - Extremities Exam Extremities exam: Present: normal inspection - Back Exam Back exam: Present: normal inspection - Neurological Exam Neurological exam: Present: alert, oriented X3, CN II-XII intact. Absent: motor sensory deficit - Psychiatric Psychiatric exam: Present: normal affect, normal mood - Skin Skin exam: Present: warm, dry, intact, normal color. Absent: rash ED Course Vital Signs 12/11/18 12/11/18 09:13 13:52 Temperature 98.6 F Pulse Rate 112 H Respiratory 18 14 Rate Blood Pressure 127/63 Blood Pressure 150/86 [Right] O2 Sat by Pulse 99 98 Oximetry ED Medical Decision Making - Lab Data Result diagrams: 12/11/18 11:01 12/11/18 11:01 Lab Results 12/11/18 12/11/18 12/11/18 Range/Units 11:01 11:01 11:01 WBC 3.9 L (4.5-11.0) K/mm3 RBC 4.61 (3.65-5.03) M/mm3 Hgb 12.4 (10.1-14.3) gm/dl Hct 37.9 (30.3-42.9) % MCV 82 (79-97) fl MCH 27 L (28-32) pg MCHC 33 (30-34) % RDW 15.3 H (13.2-15.2) % Plt Count 221 (140-440) K/mm3 Lymph % (Auto) 44.6 H (13.4-35.0) % [place] % (Auto) 7.8 H (0.0-7.3) % Eos % (Auto) 1.5 (0.0-4.3) % Baso % (Auto) 1.5 (0.0-1.8) % Lymph # 1.7 (1.2-5.4) K/mm3 [place] # 0.3 (0.0-0.8) K/mm3 Eos # 0.1 (0.0-0.4) K/mm3 Baso # 0.1 (0.0-0.1) K/mm3 Seg Neutrophils % 44.6 (40.0-70.0) % Seg Neutrophils # 1.7 L (1.8-7.7) K/mm3 Sodium 144 (137-145) mmol/L Potassium 4.4 (3.6-5.0) mmol/L Chloride 105.8 (98-107) mmol/L Carbon Dioxide 25 (22-30) mmol/L Anion Gap 18 mmol/L BUN 10 (7-17) mg/dL Creatinine 0.8 (0.7-1.2) mg/dL Estimated GFR > 60 ml/min BUN/Creatinine Ratio 13 % Glucose 91 (65-100) mg/dL Calcium 9.5 (8.4-10.2) mg/dL Total Bilirubin 0.30 (0.1-1.2) mg/dL AST 49 H (5-40) units/L ALT 13 (7-56) units/L Alkaline Phosphatase 69 (35-129) units/L Total Protein 8.1 (6.3-8.2) g/dL Albumin 4.9 (3.9-5) g/dL Albumin/Globulin Ratio 1.5 % Lipase (13-60) units/L HCG, Qual Positive (Negative) 12/11/18 Range/Units 11:01 WBC (4.5-11.0) K/mm3 RBC (3.65-5.03) M/mm3 Hgb (10.1-14.3) gm/dl Hct (30.3-42.9) % MCV (79-97) fl MCH (28-32) pg MCHC (30-34) % RDW (13.2-15.2) % Plt Count (140-440) K/mm3 Lymph % (Auto) (13.4-35.0) % [place] % (Auto) (0.0-7.3) % Eos % (Auto) (0.0-4.3) % Baso % (Auto) (0.0-1.8) % Lymph # (1.2-5.4) K/mm3 [place] # (0.0-0.8) K/mm3 Eos # (0.0-0.4) K/mm3 Baso # (0.0-0.1) K/mm3 Seg Neutrophils % (40.0-70.0) % Seg Neutrophils # (1.8-7.7) K/mm3 Sodium (137-145) mmol/L Potassium (3.6-5.0) mmol/L Chloride (98-107) mmol/L Carbon Dioxide (22-30) mmol/L Anion Gap mmol/L BUN (7-17) mg/dL Creatinine (0.7-1.2) mg/dL Estimated GFR ml/min BUN/Creatinine Ratio % Glucose (65-100) mg/dL Calcium (8.4-10.2) mg/dL Total Bilirubin (0.1-1.2) mg/dL AST (5-40) units/L ALT (7-56) units/L Alkaline Phosphatase (35-129) units/L Total Protein (6.3-8.2) g/dL Albumin (3.9-5) g/dL Albumin/Globulin Ratio % Lipase 58 (13-60) units/L HCG, Qual (Negative) - Radiology Data Radiology results: report reviewed - Medical Decision Making Discussed results with the patient 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 ED Disposition Clinical Impression: Abdominal pain Disposition: TO HOME OR SELFCARE Is pt being admited?: No Does the pt Need Aspirin: No Condition: Stable Instructions: Acute Abdominal Pain (ED) Additional Instructions: return if worse Prescriptions: HYDROcodone/APAP 5-325 [[place] 5/325] 1 each PO Q6HR PRN #12 tablet PRN Reason: Pain Promethazine [Phenergan TAB] 25 mg PO Q6HR PRN #20 tab PRN Reason: Nausea Referrals: [facility] [Provider Group] - 3-5 Days [facility] [Provider Group] - 3-5 Days LISSET MCKEON MD [Primary Care Provider] - 3-5 Days Forms: Work/School Release Form(ED) Time of Disposition: 15:44
[2018-12-11] MEDS ORDERED: COMPAZINE IV ONE (11:00)
[2018-12-11 11:15] LABS: Basophils # (Auto) 0.1 K/mm3 (0.0-0.1); Basophils % (Auto) 1.5 % (0.0-1.8); Eosinophils # (Auto) 0.1 K/mm3 (0.0-0.4); Eosinophils % (Auto) 1.5 % (0.0-4.3); Hematocrit 37.9 % (30.3-42.9); Hemoglobin 12.4 gm/dl (10.1-14.3); Lymphocytes # (Auto) 1.7 K/mm3 (1.2-5.4); Lymphocytes % (Auto) 44.6 % (13.4-35.0); Mean Corpuscular HGB Conc 33 % (30-34); Mean Corpuscular Volume 82 fl (79-97); Monocytes # (Auto) 0.3 K/mm3 (0.0-0.8); Monocytes % (Auto) 7.8 % (0.0-7.3); Platelet Count 221 K/mm3 (140-440); Red Blood Count 4.61 M/mm3 (3.65-5.03); Red Cell Distribution Width 15.3 % (13.2-15.2)
[2018-12-11 11:31] LABS: Alanine Aminotransferase 13 units/L (7-56); Albumin 4.9 g/dL (3.9-5); BUN/Creatinine Ratio 13; Blood Urea Nitrogen 10 mg/dL (7-17); Calcium 9.5 mg/dL (8.4-10.2); Hemolysis Index 84
--- NOTE | 2018-12-11 14:15 | Cat Scan Report ---
CT ABDOMEN AND PELVIS WITHOUT CONTRAST HISTORY: abdominal pain and bloating. COMPARISON: 11/08/2018 TECHNIQUE: Axial CT images were obtained through the abdomen and pelvis without IV contrast. Sagittal and coronal reformatted images. All CT scans at this location are performed using CT dose reduction for ALARA by means of automated exposure control. FINDINGS: CT ABDOMEN: Lung Bases: Clear. Liver: No significant abnormality. Biliary: Cholecystectomy. No biliary dilatation. Spleen: No significant abnormality. Unenlarged. Pancreas: No significant abnormality. Adrenals: No significant abnormality. Kidneys: Both kidneys are normal size, contour and position. The renal pyramids are slightly hyperden se suggesting nephrocalcinosis. A 3 mm calyceal stone is noted in the mid left kidney on image 20. No cystic disease, mass or hydronephrosis. Lymphatics: No lymphadenopathy. Vasculature: No significant abnormality. Bowel/Peritoneum: Partial small bowel obstruction pattern has resolved since the previous exam. No ev idence for obstruction, focal inflammation or obvious mass. I believe I see the appendix medial to th e cecum which is unremarkable. CT PELVIS: : Hysterectomy changes are suspected. No adnexal abnormality. Osseous Structures: No significant abnormality. Additional Findings: None IMPRESSION: No acute process is identified. Bilateral nephrocalcinosis. 3 mm left renal stone. Surgical changes as described. Signer Name: Rich Mesa Jr, MD Signed: 12/11/2018 2:10 PM Workstation Name: [id number]
[2018-12-11 16:17] VITALS: BP 134/72
== END 2018-12-11 16:00 | disposition home or self-care (01) ==
LOC: ED 08:57
DX: R10.9 Unspecified abdominal pain (principal); Z88.6 Allergy status to analgesic agent; Z88.1 Allergy status to other antibiotic agents; Z88.8 Allergy status to other drugs, medicaments and biological substances
CPT/HCPCS: 36415; 74176; 80053; 83690; 84703; 85025; 96361; 96374; 96375; 96376; 99284; J1200; J2270; J7030; J0780

== ENCOUNTER 2018-12-29 08:45 | Emergency (ER) | payer SELFPAY ==
[2018-12-29 09:03] VITALS: BP 119/71
--- NOTE | 2018-12-29 10:33 | Emergency Department Report ---
ED General Adult HPI - General Chief complaint: Abdominal Pain Stated complaint: COLITIS/(L) TOE PAIN Time Seen by Provider: 12/29/18 09:53 Source: patient Mode of arrival: Wheelchair Limitations: No Limitations - History of Present Illness Initial comments: This is a 43-year-old female with a history of colitis who presents ED today complaining of left toe pain 1 day. Patient states she was running into the house trying to avoid vomiting into the car when she accidentally stubbed her toe on the door. Patient states she went into the house and was vomiting and did not realize her total injury onto some hour later. Patient states she noticed bluish tinge to her left little toe started to x-rays throbbing pain. She states that sherinses some generalized abdominal pain which has been ongoing for several years now. - Related Data Previous Rx's Medication Instructions Recorded Last Taken Type Ondansetron (Nf) [Zofran TAB] 8 mg PO Q8HR PRN #14 tablet 11/14/18 Unknown Rx Pantoprazole [Protonix TAB] 40 mg PO QDAY #14 tablet 11/14/18 Unknown Rx oxyCODONE /ACETAMINOPHEN [Percocet 1 tab PO Q6H PRN #4 tablet 11/14/18 Unknown Rx 5/325 mg] Promethazine [Phenergan TAB] 25 mg PO Q6HR PRN #20 tab 12/11/18 Unknown Rx Allergies Allergy/AdvReac Type Severity Reaction Status Date / Time codeine Allergy Itching Verified 09/13/18 07:52 fentanyl Allergy Hives Verified 09/13/18 07:52 ketorolac tromethamine Allergy Itching Verified 09/13/18 07:52 [From Toradol] metoclopramide HCl Allergy Hives Verified 09/13/18 07:52 [From Reglan] morphine Allergy Hives Verified 09/13/18 07:52 ondansetron HCl [From Zofran] Allergy Hives Verified 12/24/16 08:17 prochlorperazine edisylate Allergy Hives Verified 09/13/18 07:52 [From Compazine] prochlorperazine maleate Allergy Hives Verified 09/13/18 07:52 [From Compazine] ED Review of Systems ROS: Stated complaint: COLITIS/(L) TOE PAIN Other details as noted in HPI Comment: All other systems reviewed and negative ED Past Medical Hx - Past Medical History Previous Medical History?: Yes Hx Hypertension: Yes Hx GERD: Yes (Gastroparesis) Hx Renal Disease: Yes (renal failure- now in remission) Hx Kidney Stones: Yes Hx Asthma: Yes Additional medical history: ovarian/lung ca, gastroparesis, IBS, chronic pancreatitis, anemia. (LYMPHOMA LUNG), pyelonephritis, herpes, Small bowel obstruction,. PORT RIGHT CHEST - Surgical History Past Surgical History?: Yes Hx Cholecystectomy: Yes Additional Surgical History: fistula repair, lower bowel dissection, stents (in/out), hysterectomy. Power port - Social History Smoking Status: Current Some Day Smoker Substance Use Type: None - Medications Home Medications: Home Medications Medication Instructions Recorded Confirmed Last Taken Type Ondansetron (Nf) [Zofran TAB] 8 mg PO Q8HR PRN #14 tablet 11/14/18 Unknown Rx Pantoprazole [Protonix TAB] 40 mg PO QDAY #14 tablet 11/14/18 Unknown Rx oxyCODONE /ACETAMINOPHEN [Percocet 1 tab PO Q6H PRN #4 tablet 11/14/18 Unknown Rx 5/325 mg] Promethazine [Phenergan TAB] 25 mg PO Q6HR PRN #20 tab 12/11/18 Unknown Rx ED Physical Exam - General Limitations: No Limitations General appearance: alert, in no apparent distress - Head Head exam: Present: atraumatic, normocephalic - Eye Eye exam: Present: normal appearance - ENT ENT exam: Present: mucous membranes moist - Neck Neck exam: Present: normal inspection - Respiratory Respiratory exam: Present: normal lung sounds bilaterally. Absent: respiratory distress - Cardiovascular Cardiovascular Exam: Present: regular rate, normal rhythm. Absent: systolic murmur, diastolic murmur, rubs, gallop - GI/Abdominal GI/Abdominal exam: Present: soft, normal bowel sounds - Extremities Exam Extremities exam: Present: normal inspection - Back Exam Back exam: Present: normal inspection - Neurological Exam Neurological exam: Present: alert, oriented X3 - Psychiatric Psychiatric exam: Present: normal affect, normal mood - Skin Skin exam: Present: warm, dry, intact, normal color. Absent: rash ED Course Vital Signs 12/29/18 09:01 Temperature 99.2 F Pulse Rate 90 Blood Pressure 119/71 O2 Sat by Pulse 98 Oximetry ED Medical Decision Making - Radiology Data Radiology results: report reviewed, image reviewed NDICATION / CLINICAL INFORMATION: 5th toe swelling and pain. COMPARISON: None available. FINDINGS: There is mild diffuse soft tissue swelling of the fifth digit. No osseous abnormality. More specifically no fracture or dislocation. IMPRESSION: Nonspecific soft tissue swelling of the fifth digit, right foot. No significant osseous abnormality. Signer Name: Dorita Villalba MD Signed: 12/29/2018 11:03 AM Workstation Name: [id number] Transcribed By: Dictated By: Dorita Villalba MD Electronically Authenticated By: Dorita Villalba MD Signed Date/Time: 12/29/18 1103 - Medical Decision Making 43 y o female presents with toe injury. X-ray shows no acute fracture dislocation. Discussed patient to follow up with her GI doctor for management of her colitis. Discussed the patient to keep taking her Protonix at home. Discussed the patient she may take Tylenol as needed for pain which is [id number]. Patient put in a postop shoe and follow-up with orthopedics given to patient. Critical care attestation.: If time is entered above; I have spent that time in minutes in the direct care of this critically ill patient, excluding procedure time. ED Disposition Clinical Impression: Toe contusion Qualifiers: Encounter type: initial encounter Toe: lesser toe Damage to nail status: without damage Laterality: left Qualified Code(s): S90.122A - Contusion of left lesser toe(s) without damage to nail, initial encounter Injury of toe Qualifiers: Encounter type: initial encounter Laterality: left Qualified Code(s): S99.922A - Unspecified injury of left foot, initial encounter Disposition: - TO HOME OR SELFCARE Is pt being admited?: No Does the pt Need Aspirin: No Condition: Stable Instructions: Contusion in Adults (ED), Abdominal Pain (ED) Additional Instructions: Make sure to follow up with the primary care physician as discussed. Take all your medications as you've been prescribed. If you have any worsening symptoms or develop new symptoms please return to ED immediately. Referrals: LISSET MCKEON MD [Primary Care Provider] - 3-5 Days MEME KEENE MD [Staff Physician] - 3-5 Days Forms: Accompanied Note, Work/School Release Form(ED) Time of Disposition: 11:30
[2018-12-29 11:03] LABS: Bilirubin,Urine NEG (Negative); Blood,Urine SM (Negative); Color,Urine Yellow (Yellow); Mucus,Urine FEW /HPF; Protein,Urine <15 mg/dL mg/dL (Negative); Urobilinogen,Urine < 2.0 mg/dL (<2.0)
--- NOTE | 2018-12-29 11:08 | XRay Report ---
RIGHT FIFTH TOE, 3 VIEWS, 824 2019 INDICATION / CLINICAL INFORMATION: 5th toe swelling and pain. COMPARISON: None available. FINDINGS: There is mild diffuse soft tissue swelling of the fifth digit. No osseous abnormality. More specifica lly no fracture or dislocation. IMPRESSION: Nonspecific soft tissue swelling of the fifth digit, right foot. No significant osseous a bnormality. Signer Name: Dorita Villalba MD Signed: 12/29/2018 11:03 AM Workstation Name: [id number]
[2018-12-29] MEDS ORDERED: HALDOL IM ONE (11:20)
== END 2018-12-29 12:15 | disposition home or self-care (01) ==
LOC: ED 08:45
DX: S90.122A Contusion of left lesser toe(s) without damage to nail, initial encounter (principal); I10 Essential (primary) hypertension; K31.84 Gastroparesis; F17.200 Nicotine dependence, unspecified, uncomplicated; J45.909 Unspecified asthma, uncomplicated; D64.9 Anemia, unspecified; Z87.442 Personal history of urinary calculi; Z87.19 Personal history of other diseases of the digestive system; Z79.899 Other long term (current) drug therapy; Z88.8 Allergy status to other drugs, medicaments and biological substances; Z88.5 Allergy status to narcotic agent; W22.8XXA Striking against or struck by other objects, initial encounter; Y93.89 Activity, other specified; Y92.89 Other specified places as the place of occurrence of the external cause; Y99.8 Other external cause status
CPT/HCPCS: 81001; 96372

== ENCOUNTER 2019-03-11 09:31 | Emergency (ER) | payer MEDICAID ==
[2019-03-11 09:41] VITALS: BP 125/80
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
[2019-03-11] MEDS ORDERED: SODIUM CHLORIDE 0.9% 1000 ML 1,000 ML IV ONE (10:48)
[2019-03-11] MEDS ORDERED: HALOPERIDOL LACTATE 5 MG/1 ML INJ IM ONE (10:49)
[2019-03-11 11:54] LABS: Basophils # (Auto) 0.1 K/mm3 (0.0-0.1); Basophils % (Auto) 1.3 % (0.0-1.8); Eosinophils % (Auto) 0.9 % (0.0-4.3); Hematocrit 33.5 % (30.3-42.9); Hemoglobin 10.7 gm/dl (10.1-14.3); Lymphocytes # (Auto) 2.4 K/mm3 (1.2-5.4); Lymphocytes % (Auto) 44.5 % (13.4-35.0); Mean Corpuscular HGB Conc 32 % (30-34); Mean Corpuscular Volume 83 fl (79-97); Monocytes # (Auto) 0.4 K/mm3 (0.0-0.8); Monocytes % (Auto) 6.5 % (0.0-7.3); Platelet Count 188 K/mm3 (140-440); Red Blood Count 4.04 M/mm3 (3.65-5.03); Red Cell Distribution Width 16.3 % (13.2-15.2)
[2019-03-11 12:20] LABS: Alanine Aminotransferase 13 units/L (7-56); Albumin 4.4 g/dL (3.9-5); BUN/Creatinine Ratio 17; Blood Urea Nitrogen 12 mg/dL (7-17); Calcium 8.7 mg/dL (8.4-10.2); Hemolysis Index 1
[2019-03-11 12:48] LABS: Bilirubin,Urine NEG (Negative); Blood,Urine SM (Negative); Color,Urine Straw (Yellow); Protein,Urine <15 mg/dL mg/dL (Negative); Urobilinogen,Urine < 2.0 mg/dL (<2.0)
--- NOTE | 2019-03-11 14:09 | XRay Report ---
ABDOMEN 1 VIEW(S) INDICATION / CLINICAL INFORMATION: Nausea and vomiting. COMPARISON: None available. FINDINGS: TUBES / LINES: None. BOWEL GAS PATTERN: No significant abnormality. FREE AIR / EXTRALUMINAL GAS: None seen. ADDITIONAL FINDINGS: Cholecystectomy changes are noted. IMPRESSION: No significant abnormality. Signer Name: Rich Mesa Jr, MD Signed: 03/11/2019 2:05 PM Workstation Name: [id number]
== END 2019-03-11 14:24 | disposition home or self-care (01) ==
LOC: ED 09:31
DX: K31.84 Gastroparesis (principal); I10 Essential (primary) hypertension; K21.9 Gastro-esophageal reflux disease without esophagitis; J45.909 Unspecified asthma, uncomplicated; R11.10 Vomiting, unspecified
CPT/HCPCS: 36415; 74018; 80053; 81001; 83690; 85025; 96360; 96361; 99284; J1630; J1642; J7030

== ENCOUNTER 2019-09-23 15:58 | Emergency (ER) | payer MEDICAID ==
--- NOTE | 2019-09-23 16:08 | Event Note ---
ED Screening Note Date of service: 09/23/19 Time: 16:07 ED Screening Note: 44 y o female with pmh of pancreatitis presents with abd pain and diarhea worsening x 2 days called pcp was told to come to ED due to elev lipase This initial assessment/diagnostic orders/clinical plan/treatment(s) is/are subject to change based on patients health status, clinical progression and re- assessment by fellow clinical providers in the ED. Further treatment and workup at subsequent clinical providers discretion. Patient/guardian urged not to elope from the ED as their condition may be serious if not clinically assessed and managed. Initial orders include: labs, CT?
[2019-09-23 16:50] LABS: Bilirubin,Urine NEG (Negative); Blood,Urine SM (Negative); Color,Urine Yellow (Yellow); Mucus,Urine FEW /HPF; Protein,Urine <15 mg/dL mg/dL (Negative); Urobilinogen,Urine < 2.0 mg/dL (<2.0)
[2019-09-23] MEDS ORDERED: SODIUM CHLORIDE 0.9% 1000 ML 1,000 ML IV ONE (20:49)
[2019-09-23] MEDS ORDERED: HYDROmorphone 1 MG/1 ML INJ IV ONE ×2 (20:53→23:00)
[2019-09-23] MEDS ORDERED: diphenhydrAMINE 50 MG/ML VIAL IV ONE (20:56)
--- NOTE | 2019-09-23 21:04 | Emergency Department Report ---
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 jumped on top of her abdomen; patient has chronic abdominal pain) -: Sudden Location: R flank Radiation: epigastric Severity: moderate Severity scale (0 -10): 6 Quality: stabbing Consistency: constant Improves With: nothing Worsens With: movement Context: recent injury (large dog jumped onto patient whilst at work) Associated Symptoms: nausea - Related Data LMP (females 10-50): other (s/p total hysterectomy) Previous Rx's Medication Instructions Recorded Last Taken Type Ondansetron (Nf) [Zofran TAB] 8 mg PO Q8HR PRN #14 tablet 11/14/18 Unknown Rx Pantoprazole [Protonix TAB] 40 mg PO QDAY #14 tablet 11/14/18 Unknown Rx oxyCODONE /ACETAMINOPHEN [Percocet 1 tab PO Q6H PRN #4 tablet 11/14/18 Unknown Rx 5/325 mg] Promethazine [Phenergan TAB] 25 mg PO Q6HR PRN #20 tab 12/11/18 Unknown Rx Dicyclomine [Bentyl] 20 mg PO QID #10 tablet 03/11/19 Unknown Rx Promethazine HCl [Phenergan SUPPOS] 25 mg RC BID #10 supp.rect 03/11/19 Unknown Rx Promethazine [Phenergan] 25 mg PO Q6HR PRN #20 tab 03/11/19 Unknown Rx Gabapentin 100 mg PO Q8HR #12 capsule 08/15/19 Unknown Rx traMADoL [Ultram 50 MG tab] 50 mg PO Q6HR PRN #12 tablet 08/15/19 Unknown Rx Allergies Allergy/AdvReac Type Severity Reaction Status Date / Time codeine Allergy Itching Verified 09/13/18 07:52 fentanyl Allergy Hives Verified 09/13/18 07:52 ketorolac tromethamine Allergy Itching Verified 09/13/18 07:52 [From Toradol] metoclopramide HCl Allergy Hives Verified 09/13/18 07:52 [From Reglan] morphine Allergy Hives Verified 09/13/18 07:52 ondansetron HCl [From Zofran] Allergy Hives Verified 12/24/16 08:17 prochlorperazine edisylate Allergy Hives Verified 09/13/18 07:52 [From Compazine] prochlorperazine maleate Allergy Hives Verified 09/13/18 07:52 [From Compazine] ED Review of Systems ROS: Stated complaint: ABD PAIN/DOG ATTACK Other details as noted in HPI Constitutional: denies: chills, fever Eyes: denies: eye pain, eye discharge, vision change ENT: denies: ear pain, throat pain Respiratory: denies: cough, shortness of breath, wheezing Cardiovascular: denies: chest pain, palpitations Endocrine: no symptoms reported Gastrointestinal: abdominal pain, nausea. denies: diarrhea Genitourinary: denies: urgency, dysuria, discharge Musculoskeletal: denies: back pain, joint swelling, arthralgia Skin: denies: rash, lesions Neurological: denies: headache, weakness, paresthesias Psychiatric: denies: anxiety, depression Hematological/Lymphatic: denies: easy bleeding, easy bruising ED Past Medical Hx - Past Medical History Hx Hypertension: Yes Hx GERD: Yes (Gastroparesis) Hx Renal Disease: Yes (renal failure- now in remission) Hx Kidney Stones: Yes Hx Asthma: Yes Additional medical history: ovarian/lung ca, gastroparesis, IBS, chronic pancreatitis, anemia. (LYMPHOMA LUNG), pyelonephritis, herpes, Small bowel obs truction,. PORT RIGHT CHEST, pancreatits - Surgical History Past Surgical History?: Yes Hx Open Heart Surgery: No Hx Pacemaker: No Hx Internal Defibrillator: No Hx Cholecystectomy: Yes Additional Surgical History: fistula repair, lower bowel dissection, stents (in/out), hysterectomy. Power port - Social History Smoking Status: Former Smoker Substance Use Type: None - Medications Home Medications: Home Medications Medication Instructions Recorded Confirmed Last Taken Type Ondansetron (Nf) [Zofran TAB] 8 mg PO Q8HR PRN #14 tablet 11/14/18 Unknown Rx Pantoprazole [Protonix TAB] 40 mg PO QDAY #14 tablet 11/14/18 Unknown Rx oxyCODONE /ACETAMINOPHEN [Percocet 1 tab PO Q6H PRN #4 tablet 11/14/18 Unknown Rx 5/325 mg] Promethazine [Phenergan TAB] 25 mg PO Q6HR PRN #20 tab 12/11/18 Unknown Rx Dicyclomine [Bentyl] 20 mg PO QID #10 tablet 03/11/19 Unknown Rx Promethazine HCl [Phenergan SUPPOS] 25 mg RC BID #10 supp.rect 03/11/19 Unknown Rx Promethazine [Phenergan] 25 mg PO Q6HR PRN #20 tab 03/11/19 Unknown Rx Gabapentin 100 mg PO Q8HR #12 capsule 08/15/19 Unknown Rx traMADoL [Ultram 50 MG tab] 50 mg PO Q6HR PRN #12 tablet 08/15/19 Unknown Rx ED Physical Exam - General Limitations: No Limitations General appearance: alert, in no apparent distress - Head Head exam: Present: atraumatic, normocephalic - Eye Eye exam: Present: normal appearance - ENT ENT exam: Present: mucous membranes moist - Neck Neck exam: Present: normal inspection - Respiratory Respiratory exam: Present: normal lung sounds bilaterally. Absent: respiratory distress - Cardiovascular Cardiovascular Exam: Present: regular rate, normal rhythm. Absent: systolic murmur, diastolic murmur, rubs, gallop - GI/Abdominal GI/Abdominal exam: Present: soft, tenderness (right flank and epigastric pain), normal bowel sounds - Rectal Rectal exam: Present: deferred - Extremities Exam Extremities exam: Present: normal inspection - Back Exam Back exam: Present: normal inspection - Neurological Exam Neurological exam: Present: alert, oriented X3 - Psychiatric Psychiatric exam: Present: normal affect, normal mood - Skin Skin exam: Present: warm, dry, intact, normal color. Absent: rash ED Course Vital Signs 09/23/19 16:04 Temperature 98.9 F Pulse Rate 93 H Respiratory 16 Rate Blood Pressure 141/103 O2 Sat by Pulse 98 Oximetry ED Medical Decision Making - Lab Data Result diagrams: 09/23/19 21:39 09/23/19 21:39 Critical care attestation.: If time is entered above; I have spent that time in minutes in the direct care of this critically ill patient, excluding procedure time. ED Disposition Clinical Impression: Abdominal pain Qualifiers: Abdominal location: generalized Qualified Code(s): R10.84 - Generalized abdominal pain Disposition: DC- TO HOME OR SELFCARE Is pt being admited?: No Does the pt Need Aspirin: No Condition: Fair Instructions: Abdominal Pain (ED) Referrals: LISSET MCKEON MD [Primary Care Provider] - 3-5 Days
[2019-09-23 21:55] LABS: Basophils % (Auto) 0.7 % (0.0-1.8); Eosinophils # (Auto) 0.1 K/mm3 (0.0-0.4); Eosinophils % (Auto) 1.4 % (0.0-4.3); Hematocrit 34.6 % (30.3-42.9); Hemoglobin 11.2 gm/dl (10.1-14.3); Lymphocytes # (Auto) 2.8 K/mm3 (1.2-5.4); Lymphocytes % (Auto) 45.5 % (13.4-35.0); Mean Corpuscular HGB Conc 32 % (30-34); Mean Corpuscular Volume 83 fl (79-97); Monocytes # (Auto) 0.5 K/mm3 (0.0-0.8); Monocytes % (Auto) 7.5 % (0.0-7.3); Platelet Count 230 K/mm3 (140-440); Red Blood Count 4.19 M/mm3 (3.65-5.03); Red Cell Distribution Width 14.7 % (13.2-15.2)
--- NOTE | 2019-09-23 21:56 | Cat Scan Report ---
CT ABDOMEN AND PELVIS WITHOUT CONTRAST HISTORY: flank pain. COMPARISON: CT abdomen/pelvis from 12/11/2018 TECHNIQUE: CT images of the abdomen and pelvis were obtained without administration of intravenous co ntrast. All CT scans at this location are performed using CT dose reduction for ALARA by means of au tomated exposure control. FINDINGS: Lungs/bones: The lung bases are clear. There are degenerative changes within the spine and pelvis wi th no acute osseous abnormality identified. Abdomen/pelvis: The gallbladder is surgically absent. The liver is slightly enlarged with no mass. T he spleen, pancreas, adrenals, kidneys, each collecting system, and pancreas appear unremarkable. The proximal GI tract shows no acute abnormality. The urinary bladder is unremarkable. Uterus is surgically absent. No pelvic free fluid or acute colon ic abnormality identified. The appendix and terminal ileum appear normal. IMPRESSION: 1. No acute abnormality identified. Signer Name: Demian Garcia MD Signed: 09/23/2019 9:52 PM Workstation Name: [id number]
[2019-09-23 22:44] LABS: Alanine Aminotransferase 37 units/L (7-56); Albumin 4.4 g/dL (3.9-5); BUN/Creatinine Ratio 15; Blood Urea Nitrogen 9 mg/dL (7-17); Calcium 8.8 mg/dL (8.4-10.2); Hemolysis Index 3
[2019-09-24 01:04] VITALS: BP 140/78
== END 2019-09-23 23:36 | disposition home or self-care (01) ==
LOC: ED 15:58
DX: R10.13 Epigastric pain (principal); I10 Essential (primary) hypertension; K21.9 Gastro-esophageal reflux disease without esophagitis; J45.909 Unspecified asthma, uncomplicated; N20.0 Calculus of kidney; Z90.710 Acquired absence of both cervix and uterus; Z87.891 Personal history of nicotine dependence; Z79.899 Other long term (current) drug therapy; Z88.6 Allergy status to analgesic agent; Z88.4 Allergy status to anesthetic agent; Z88.8 Allergy status to other drugs, medicaments and biological substances
CPT/HCPCS: 36415; 74176; 80053; 81001; 82150; 83690; 85025; 96374; 96375; 96376; 99284; J1170; J1200; J1642; J7030

== ENCOUNTER 2019-12-02 10:00 | Emergency (ER) | payer MEDICAID ==
[2019-12-02 10:05] VITALS: BP 134/85
[2019-12-02] MEDS ORDERED: SODIUM CHLORIDE 0.9% 1000 ML 1,000 ML IV ONE (11:24)
--- NOTE | 2019-12-02 11:35 | Event Note ---
ED Screening Note Date of service: 12/02/19 Time: 11:21 ED Screening Note: 44-year-old -[place] female presents to the emergency room for sharp abdominal pain that presents intermittent and colicky-like. Patient states that has gotten worse since last night. Patient does have a history of kidney stone gastroparesis pyelonephritis small bowel obstruction pancreatitis. Having nausea and vomiting. This initial assessment/diagnostic orders/clinical plan/treatment(s) is/are subject to change based on patients health status, clinical progression and re- assessment by fellow clinical providers in the ED. Further treatment and workup at subsequent clinical providers discretion. Patient/guardian urged not to elope from the ED as their condition may be serious if not clinically assessed and managed. Initial orders include:
[2019-12-02] MEDS ORDERED: PROMETHAZINE 50 MG RECT SUPP PR ONE (13:22)
[2019-12-02] MEDS ORDERED: ACETAMINOPHEN 500 MG TAB PO ONE (13:22)
[2019-12-02 13:27] LABS: Basophils # (Auto) 0.1 K/mm3 (0.0-0.1); Eosinophils # (Auto) 0.1 K/mm3 (0.0-0.4); Eosinophils % (Auto) 1.2 % (0.0-4.3); Hematocrit 37.1 % (30.3-42.9); Hemoglobin 11.9 gm/dl (10.1-14.3); Lymphocytes # (Auto) 2.7 K/mm3 (1.2-5.4); Lymphocytes % (Auto) 40.9 % (13.4-35.0); Mean Corpuscular HGB Conc 32 % (30-34); Mean Corpuscular Volume 84 fl (79-97); Monocytes # (Auto) 0.5 K/mm3 (0.0-0.8); Monocytes % (Auto) 7.9 % (0.0-7.3); Platelet Count 224 K/mm3 (140-440); Red Cell Distribution Width 15.3 % (13.2-15.2)
[2019-12-02 13:32] LABS: Basophils % (Auto) 0.8 % (0.0-1.8)
[2019-12-02 13:35] LABS: Bacteria,Urine 1+ /HPF (Negative); Bilirubin,Urine NEG (Negative); Blood,Urine NEG (Negative); Color,Urine Straw (Yellow); Protein,Urine <15 mg/dL mg/dL (Negative); Urobilinogen,Urine < 2.0 mg/dL (<2.0)
[2019-12-02 13:42] LABS: Alanine Aminotransferase 18 units/L (7-56); Albumin 4.7 g/dL (3.9-5); BUN/Creatinine Ratio 23; Blood Urea Nitrogen 14 mg/dL (7-17); Calcium 8.8 mg/dL (8.4-10.2); Hemolysis Index 9
--- NOTE | 2019-12-02 13:46 | Emergency Department Report ---
ED Abdominal Pain HPI - General Chief Complaint: Abdominal Pain Stated Complaint: ABD PAIN Time Seen by Provider: 12/02/19 12:13 Source: patient Mode of arrival: Ambulatory Limitations: No Limitations - History of Present Illness Initial Comments: This is a 44-year-old female nontoxic, well nourished in appearance, no acute signs of distress presents to the ED with c/o of nausea and vomiting and abdominal pain several days. Patient describes vomiting as food content and yellow gastric acid. Patient describes abdominal pain as cramping and aching with level of 3/10 diffuse. Patient denies chest pain, short of breath, fever, hemoptysis, blood in stool, chills, headache, stiff neck, numbness or tingling. Patient denies any diarrhea or constipation. Denies any blood in stool. Patient denies any recent travels. Patient has PMH of gastroparesis. MD Complaint: abdominal pain -: days(s) Location: diffuse Radiation: none Migration to: no migration Severity: mild Severity scale (0 -10): 8 Quality: cramping, aching Consistency: constant Improves With: nothing Worsens With: nothing Associated Symptoms: nausea, vomiting. denies: diarrhea, fever, chills, constipation, dysuria, hematemesis, hematochezia, melena, hematuria, anorexia, syncope - Related Data Previous Rx's Medication Instructions Recorded Last Taken Type Ondansetron (Nf) [Zofran TAB] 8 mg PO Q8HR PRN #14 tablet 11/14/18 Unknown Rx Pantoprazole [Protonix TAB] 40 mg PO QDAY #14 tablet 11/14/18 Unknown Rx oxyCODONE /ACETAMINOPHEN [Percocet 1 tab PO Q6H PRN #4 tablet 11/14/18 Unknown Rx 5/325 mg] Promethazine [Phenergan TAB] 25 mg PO Q6HR PRN #20 tab 12/11/18 Unknown Rx Dicyclomine [Bentyl] 20 mg PO QID #10 tablet 03/11/19 Unknown Rx Promethazine HCl [Phenergan SUPPOS] 25 mg RC BID #10 supp.rect 03/11/19 Unknown Rx Promethazine [Phenergan] 25 mg PO Q6HR PRN #20 tab 03/11/19 Unknown Rx Gabapentin 100 mg PO Q8HR #12 capsule 08/15/19 Unknown Rx traMADoL [Ultram 50 MG tab] 50 mg PO Q6HR PRN #12 tablet 08/15/19 Unknown Rx traMADoL [Ultram 50 MG tab] 50 mg PO Q6HR PRN #10 tablet 10/27/19 Unknown Rx Allergies Allergy/AdvReac Type Severity Reaction Status Date / Time codeine Allergy Itching Verified 09/13/18 07:52 fentanyl Allergy Hives Verified 09/13/18 07:52 ketorolac tromethamine Allergy Itching Verified 09/13/18 07:52 [From Toradol] metoclopramide HCl Allergy Hives Verified 09/13/18 07:52 [From Reglan] morphine Allergy Hives Verified 09/13/18 07:52 ondansetron HCl [From Zofran] Allergy Hives Verified 12/24/16 08:17 prochlorperazine edisylate Allergy Hives Verified 09/13/18 07:52 [From Compazine] prochlorperazine maleate Allergy Hives Verified 09/13/18 07:52 [From Compazine] ED Review of Systems ROS: Stated complaint: ABD PAIN Other details as noted in HPI Constitutional: denies: chills, fever Eyes: denies: eye pain, eye discharge, vision change ENT: denies: ear pain, throat pain Respiratory: denies: cough, shortness of breath, wheezing Cardiovascular: denies: chest pain, palpitations Endocrine: no symptoms reported Gastrointestinal: abdominal pain, nausea, vomiting. denies: diarrhea Genitourinary: denies: urgency, dysuria, discharge Musculoskeletal: denies: back pain, joint swelling, arthralgia Skin: denies: rash, lesions Neurological: denies: headache, weakness, paresthesias Psychiatric: denies: anxiety, depression Hematological/Lymphatic: denies: easy bleeding, easy bruising ED Past Medical Hx - Past Medical History Previous Medical History?: Yes Hx Hypertension: Yes Hx GERD: Yes (Gastroparesis) Hx Renal Disease: Yes (renal failure- now in remission) Hx Kidney Stones: Yes Hx Asthma: Yes Additional medical history: ovarian/lung ca, gastroparesis, IBS, chronic pancreatitis, anemia. (LYMPHOMA LUNG), pyelonephritis, herpes, Small bowel obstruction,. PORT RIGHT CHEST, pancreatits - Surgical History Past Surgical History?: Yes Hx Open Heart Surgery: No Hx Pacemaker: No Hx Internal Defibrillator: No Hx Cholecystectomy: Yes Additional Surgical History: fistula repair, lower bowel dissection, stents (in/out), hysterectomy. Power port - Social History Smoking Status: Current Every Day Smoker Substance Use Type: None - Medications Home Medications: Home Medications Medication Instructions Recorded Confirmed Last Taken Type Ondansetron (Nf) [Zofran TAB] 8 mg PO Q8HR PRN #14 tablet 11/14/18 Unknown Rx Pantoprazole [Protonix TAB] 40 mg PO QDAY #14 tablet 11/14/18 Unknown Rx oxyCODONE /ACETAMINOPHEN [Percocet 1 tab PO Q6H PRN #4 tablet 11/14/18 Unknown Rx 5/325 mg] Promethazine [Phenergan TAB] 25 mg PO Q6HR PRN #20 tab 12/11/18 Unknown Rx Dicyclomine [Bentyl] 20 mg PO QID #10 tablet 03/11/19 Unknown Rx Promethazine HCl [Phenergan SUPPOS] 25 mg RC BID #10 supp.rect 03/11/19 Unknown Rx Promethazine [Phenergan] 25 mg PO Q6HR PRN #20 tab 03/11/19 Unknown Rx Gabapentin 100 mg PO Q8HR #12 capsule 08/15/19 Unknown Rx traMADoL [Ultram 50 MG tab] 50 mg PO Q6HR PRN #12 tablet 08/15/19 Unknown Rx traMADoL [Ultram 50 MG tab] 50 mg PO Q6HR PRN #10 tablet 10/27/19 Unknown Rx ED Physical Exam - General Limitations: No Limitations General appearance: alert, in no apparent distress - Head Head exam: Present: atraumatic, normocephalic - Eye Eye exam: Present: normal appearance - Neck Neck exam: Present: normal inspection, full ROM. Absent: tenderness, meningismus, lymphadenopathy - Respiratory Respiratory exam: Present: normal lung sounds bilaterally. Absent: respiratory distress, wheezes, rales, rhonchi, stridor, chest wall tenderness, accessory muscle use, decreased breath sounds, prolonged expiratory - Cardiovascular Cardiovascular Exam: Present: regular rate, normal rhythm, tachycardia, normal heart sounds. Absent: irregular rhythm, systolic murmur, diastolic murmur, rubs, gallop - GI/Abdominal GI/Abdominal exam: Present: soft, tenderness (diffuse), normal bowel sounds. Absent: distended, guarding, rebound, rigid, diminished bowel sounds - Extremities Exam Extremities exam: Present: normal inspection, full ROM - Back Exam Back exam: Present: normal inspection, full ROM. Absent: tenderness, CVA tenderness (R), CVA tenderness (L), muscle spasm, paraspinal tenderness, vertebral tenderness, rash noted - Neurological Exam Neurological exam: Present: alert, oriented X3, normal gait - Psychiatric Psychiatric exam: Present: normal affect, normal mood - Skin Skin exam: Present: warm, dry, intact, normal color. Absent: rash ED Course Vital Signs 12/02/19 12/02/19 10:04 11:21 Temperature 98.5 F Pulse Rate 93 H Respiratory 20 18 Rate Blood Pressure 134/85 O2 Sat by Pulse 100 97 Oximetry - Reevaluation(s) Reevaluation #1: 12/02/19 13:43 Patient is speaking in full sentences with no signs of distress noted. ED Medical Decision Making - Lab Data Result diagrams: 12/02/19 12:26 12/02/19 12:26 Lab Results 12/02/19 12/02/19 12/02/19 Range/Units 12:26 12:26 12:26 WBC 6.5 (4.5-11.0) K/mm3 RBC 4.40 (3.65-5.03) M/mm3 Hgb 11.9 (10.1-14.3) gm/dl Hct 37.1 (30.3-42.9) % MCV 84 (79-97) fl MCH 27 L (28-32) pg MCHC 32 (30-34) % RDW 15.3 H (13.2-15.2) % Plt Count 224 (140-440) K/mm3 Lymph % (Auto) 40.9 H (13.4-35.0) % [place] % (Auto) 7.9 H (0.0-7.3) % Eos % (Auto) 1.2 (0.0-4.3) % Baso % (Auto) 0.8 (0.0-1.8) % Lymph # 2.7 (1.2-5.4) K/mm3 [place]at # 0.5 (0.0-0.8) K/mm3 Eos # 0.1 (0.0-0.4) K/mm3 Baso # 0.1 (0.0-0.1) K/mm3 Add Manual Diff Complete Seg Neutrophils % 49.2 (40.0-70.0) % Seg Neutrophils # 3.2 (1.8-7.7) K/mm3 Sodium 138 (137-145) mmol/L Potassium 4.0 (3.6-5.0) mmol/L Chloride 103.7 (98-107) mmol/L Carbon Dioxide 23 (22-30) mmol/L Anion Gap 15 mmol/L BUN 14 (7-17) mg/dL Creatinine 0.6 L (0.7-1.2) mg/dL Estimated GFR > 60 ml/min BUN/Creatinine Ratio 23 % Glucose 77 (65-100) mg/dL Calcium 8.8 (8.4-10.2) mg/dL Total Bilirubin 0.20 (0.1-1.2) mg/dL AST 58 H (5-40) units/L ALT 18 (7-56) units/L Alkaline Phosphatase 65 (35-129) units/L Total Protein 7.4 (6.3-8.2) g/dL Albumin 4.7 (3.9-5) g/dL Albumin/Globulin Ratio 1.7 % Lipase (13-60) units/L HCG, Qual (Negative) Urine Color Straw (Yellow) Urine Turbidity Clear (Clear) Urine pH 6.0 (5.0-7.0) Ur Specific [place] 1.006 (1.003-1.030) Urine Protein <15 mg/dl (Negative) mg/dL Urine Glucose (UA) Neg (Negative) mg/dL Urine Ketones Neg (Negative) mg/dL Urine Blood Neg (Negative) Urine Nitrite Neg (Negative) Urine Bilirubin Neg (Negative) Urine Urobilinogen < 2.0 (<2.0) mg/dL Ur Leukocyte Esterase Neg (Negative) Urine WBC (Auto) 1.0 (0.0-6.0) /HPF Urine RBC (Auto) 1.0 (0.0-6.0) /HPF U Epithel Cells (Auto) 1.0 (0-13.0) /HPF Urine Bacteria (Auto) 1+ (Negative) /HPF 12/02/19 12/02/19 Range/Units 12:26 12:26 WBC (4.5-11.0) K/mm3 RBC (3.65-5.03) M/mm3 Hgb (10.1-14.3) gm/dl Hct (30.3-42.9) % MCV (79-97) fl MCH (28-32) pg MCHC (30-34) % RDW (13.2-15.2) % Plt Count (140-440) K/mm3 Lymph % (Auto) (13.4-35.0) % [place] % (Auto) (0.0-7.3) % Eos % (Auto) (0.0-4.3) % Baso % (Auto) (0.0-1.8) % Lymph # (1.2-5.4) K/mm3 [place]at # (0.0-0.8) K/mm3 Eos # (0.0-0.4) K/mm3 Baso # (0.0-0.1) K/mm3 Add Manual Diff Seg Neutrophils % (40.0-70.0) % Seg Neutrophils # (1.8-7.7) K/mm3 Sodium (137-145) mmol/L Potassium (3.6-5.0) mmol/L Chloride (98-107) mmol/L Carbon Dioxide (22-30) mmol/L Anion Gap mmol/L BUN (7-17) mg/dL Creatinine (0.7-1.2) mg/dL Estimated GFR ml/min BUN/Creatinine Ratio % Glucose (65-100) mg/dL Calcium (8.4-10.2) mg/dL Total Bilirubin (0.1-1.2) mg/dL AST (5-40) units/L ALT (7-56) units/L Alkaline Phosphatase (35-129) units/L Total Protein (6.3-8.2) g/dL Albumin (3.9-5) g/dL Albumin/Globulin Ratio % Lipase 136 H (13-60) units/L HCG, Qual Negative (Negative) Urine Color (Yellow) Urine Turbidity (Clear) Urine pH (5.0-7.0) Ur Specific [place] (1.003-1.030) Urine Protein (Negative) mg/dL Urine Glucose (UA) (Negative) mg/dL Urine Ketones (Negative) mg/dL Urine Blood (Negative) Urine Nitrite (Negative) Urine Bilirubin (Negative) Urine Urobilinogen (<2.0) mg/dL Ur Leukocyte Esterase (Negative) Urine WBC (Auto) (0.0-6.0) /HPF Urine RBC (Auto) (0.0-6.0) /HPF U Epithel Cells (Auto) (0-13.0) /HPF Urine Bacteria (Auto) (Negative) /HPF - Medical Decision Making 44-year-old female that presents with abdominal pain and nausea vomiting. Patient refused any CT scans or further evaluation. Patient stated she is going to her PCP. Patient was educated and instructed of my concerns and if not examiend and/or treated there can be serious life complications such as . Patient still refused. Patient signed AGAINST MEDICAL ADVICE. At time of signing AMA, the patient does not seem toxic or ill in appearance. No acute signs of distress noted. Patient agrees to treatment plan of care. No further questions noted by the patient. Critical care attestation.: If time is entered above; I have spent that time in minutes in the direct care of this critically ill patient, excluding procedure time. ED Disposition Clinical Impression: Abdominal pain Qualifiers: Abdominal location: generalized Qualified Code(s): R10.84 - Generalized abdominal pain Nausea & vomiting Qualifiers: Vomiting type: unspecified Vomiting Intractability: unspecified Qualified Code (s): R11.2 - Nausea with vomiting, unspecified Disposition: Z-07 MED SCREENING EXAM-LEFT Is pt being admited?: No Does the pt Need Aspirin: No Condition: Undetermined Instructions: Abdominal Pain (ED) Additional Instructions: Follow-up with a primary care doctor in [facility] or if symptoms worsen and continue return to emergency room as soon as possible. You are leaving AGAINST MEDICAL ADVICE. As instructed and educated to you during your ED stay that this is a serious medical condition and if not further evaluated and or treated this could cause serious complications and or . Referrals: PRIMARY CARE, [Primary Care Provider] - 3-5 Days DIOGENES PERKINS MD [Staff Physician] - [facility] [Provider Group] - [facility] Forms: AMA Form
== END 2019-12-02 13:51 | disposition left against medical advice (07) ==
LOC: ED 10:00
DX: R10.84 Generalized abdominal pain (principal); R11.2 Nausea with vomiting, unspecified; Z53.21 Procedure and treatment not carried out due to patient leaving prior to being seen by health care provider
CPT/HCPCS: 36415; 80053; 81001; 83690; 84703; 85025; J7030; 96360; 99283

== ENCOUNTER 2019-12-27 08:05 | Emergency (ER) | payer MEDICAID ==
[2019-12-27] MEDS ORDERED: SODIUM CHLORIDE 0.9% 1000 ML 1,000 ML IV ONE (10:20)
[2019-12-27] MEDS ORDERED: HALOPERIDOL LACTATE 5 MG/1 ML INJ IV ONE (10:25)
--- NOTE | 2019-12-27 10:29 | Emergency Department Report ---
ED General Adult HPI - General Chief complaint: Abdominal Pain Stated complaint: LINDA/FLARE UP/NERVE PAIN/VOMIT Time Seen by Provider: 12/27/19 10:01 Source: patient Mode of arrival: Ambulatory Limitations: No Limitations - History of Present Illness Initial comments: The patient presents to the emergency department with a chief complaint of abdominal pain with nausea and vomiting. Patient states she has a history of chronic pancreatitis and gastroparesis. Patient states yesterday she began to have severe abdominal pain. The patient states she has a history of daily abdominal pain but yesterday the pain became severe. Patient complains of vomit ing as well as nausea. Patient denies chest pain or shortness of breath. -: days(s) (1) Location: abdomen Radiation: non-radiation Severity scale (0 -10): 5 Quality: aching Consistency: constant Improves with: none Worsens with: none Associated Symptoms: denies other symptoms Treatments Prior to Arrival: none - Related Data Previous Rx's Medication Instructions Recorded Last Taken Type Ondansetron (Nf) [Zofran TAB] 8 mg PO Q8HR PRN #14 tablet 11/14/18 Unknown Rx Pantoprazole [Protonix TAB] 40 mg PO QDAY #14 tablet 11/14/18 Unknown Rx oxyCODONE /ACETAMINOPHEN [Percocet 1 tab PO Q6H PRN #4 tablet 11/14/18 Unknown Rx 5/325 mg] Promethazine [Phenergan TAB] 25 mg PO Q6HR PRN #20 tab 12/11/18 Unknown Rx Dicyclomine [Bentyl] 20 mg PO QID #10 tablet 03/11/19 Unknown Rx Promethazine HCl [Phenergan SUPPOS] 25 mg RC BID #10 supp.rect 03/11/19 Unknown Rx Promethazine [Phenergan] 25 mg PO Q6HR PRN #20 tab 03/11/19 Unknown Rx Gabapentin 100 mg PO Q8HR #12 capsule 08/15/19 Unknown Rx traMADoL [Ultram 50 MG tab] 50 mg PO Q6HR PRN #12 tablet 08/15/19 Unknown Rx traMADoL [Ultram 50 MG tab] 50 mg PO Q6HR PRN #10 tablet 10/27/19 Unknown Rx HYDROcodone/APAP 7.5-325 [[place] 1 each PO Q6HR PRN #15 tablet 12/27/19 Unknown Rx 7.5/325] Ondansetron [Zofran Odt] 4 mg PO Q4HR PRN #20 tab.rapdis 12/27/19 Unknown Rx Promethazine [Phenergan TAB] 25 mg PO Q6HR PRN #20 tab 12/27/19 Unknown Rx Allergies Allergy/AdvReac Type Severity Reaction Status Date / Time codeine Allergy Itching Verified 09/13/18 07:52 fentanyl Allergy Hives Verified 09/13/18 07:52 ketorolac tromethamine Allergy Itching Verified 09/13/18 07:52 [From Toradol] metoclopramide HCl Allergy Hives Verified 09/13/18 07:52 [From Reglan] morphine Allergy Hives Verified 09/13/18 07:52 ondansetron HCl [From Zofran] Allergy Hives Verified 12/24/16 08:17 prochlorperazine edisylate Allergy Hives Verified 09/13/18 07:52 [From Compazine] prochlorperazine maleate Allergy Hives Verified 09/13/18 07:52 [From Compazine] ED Review of Systems ROS: Stated complaint: LINDA/FLARE UP/NERVE PAIN/VOMIT Other details as noted in HPI Constitutional: denies: chills, fever Eyes: denies: eye pain, eye discharge, vision change ENT: denies: ear pain, throat pain Respiratory: denies: cough, shortness of breath, wheezing Cardiovascular: denies: chest pain, palpitations Endocrine: no symptoms reported Gastrointestinal: abdominal pain, nausea, vomiting. denies: diarrhea Genitourinary: denies: urgency, dysuria, discharge Musculoskeletal: denies: back pain, joint swelling, arthralgia Skin: denies: rash, lesions Neurological: denies: headache, weakness, paresthesias Psychiatric: denies: anxiety, depression Hematological/Lymphatic: denies: easy bleeding, easy bruising ED Past Medical Hx - Past Medical History Previous Medical History?: Yes Hx Hypertension: Yes Hx GERD: Yes (Gastroparesis) Hx Renal Disease: Yes (renal failure- now in remission) Hx Kidney Stones: Yes Hx Asthma: Yes Additional medical history: ovarian/lung ca, gastroparesis, IBS, chronic rodriguez creatitis, anemia. (LYMPHOMA LUNG), pyelonephritis, herpes, Small bowel obstruction,. PORT RIGHT CHEST, pancreatits - Surgical History Hx Open Heart Surgery: No Hx Pacemaker: No Hx Internal Defibrillator: No Hx Cholecystectomy: Yes Additional Surgical History: fistula repair, lower bowel dissection, stents (in/out), hysterectomy. Power port - Social History Smoking Status: Current Every Day Smoker Substance Use Type: None - Medications Home Medications: Home Medications Medication Instructions Recorded Confirmed Last Taken Type Ondansetron (Nf) [Zofran TAB] 8 mg PO Q8HR PRN #14 tablet 11/14/18 Unknown Rx Pantoprazole [Protonix TAB] 40 mg PO QDAY #14 tablet 11/14/18 Unknown Rx oxyCODONE /ACETAMINOPHEN [Percocet 1 tab PO Q6H PRN #4 tablet 11/14/18 Unknown Rx 5/325 mg] Promethazine [Phenergan TAB] 25 mg PO Q6HR PRN #20 tab 12/11/18 Unknown Rx Dicyclomine [Bentyl] 20 mg PO QID #10 tablet 03/11/19 Unknown Rx Promethazine HCl [Phenergan SUPPOS] 25 mg RC BID #10 supp.rect 03/11/19 Unknown Rx Promethazine [Phenergan] 25 mg PO Q6HR PRN #20 tab 03/11/19 Unknown Rx Gabapentin 100 mg PO Q8HR #12 capsule 08/15/19 Unknown Rx traMADoL [Ultram 50 MG tab] 50 mg PO Q6HR PRN #12 tablet 08/15/19 Unknown Rx traMADoL [Ultram 50 MG tab] 50 mg PO Q6HR PRN #10 tablet 10/27/19 Unknown Rx HYDROcodone/APAP 7.5-325 [[place] 1 each PO Q6HR PRN #15 tablet 12/27/19 Unknown Rx 7.5/325] Ondansetron [Zofran Odt] 4 mg PO Q4HR PRN #20 tab.rapdis 12/27/19 Unknown Rx Promethazine [Phenergan TAB] 25 mg PO Q6HR PRN #20 tab 12/27/19 Unknown Rx ED Physical Exam - General Limitations: No Limitations General appearance: alert, in no apparent distress - Head Head exam: Present: atraumatic, normocephalic - Eye Eye exam: Present: normal appearance, PERRL, EOMI - ENT ENT exam: Present: mucous membranes moist - Neck Neck exam: Present: normal inspection - Respiratory Respiratory exam: Present: normal lung sounds bilaterally. Absent: respiratory distress - Cardiovascular Cardiovascular Exam: Present: regular rate, normal rhythm. Absent: systolic murmur, diastolic murmur, rubs, gallop - GI/Abdominal GI/Abdominal exam: Present: soft, normal bowel sounds. Absent: distended, tenderness - Extremities Exam Extremities exam: Present: normal inspection - Back Exam Back exam: Present: normal inspection - Neurological Exam Neurological exam: Present: alert, oriented X3, CN II-XII intact. Absent: motor sensory deficit - Psychiatric Psychiatric exam: Present: normal affect, normal mood - Skin Skin exam: Present: warm, dry, intact, normal color. Absent: rash ED Course Vital Signs 12/27/19 08:10 Temperature 97.9 F Pulse Rate 79 Respiratory 18 Rate Blood Pressure 151/69 O2 Sat by Pulse 99 Oximetry ED Medical Decision Making - Lab Data Result diagrams: 12/27/19 11:10 12/27/19 11:10 Lab Results 12/27/19 12/27/19 12/27/19 Range/Units 10:27 11:10 11:10 WBC 5.8 (4.5-11.0) K/mm3 RBC 3.94 (3.65-5.03) M/mm3 Hgb 10.7 (10.1-14.3) gm/dl Hct 33.0 (30.3-42.9) % MCV 84 (79-97) fl MCH 27 L (28-32) pg MCHC 32 (30-34) % RDW 15.8 H (13.2-15.2) % Plt Count 256 (140-440) K/mm3 Lymph % (Auto) 39.5 H (13.4-35.0) % [place]ance % (Auto) 8.7 H (0.0-7.3) % Eos % (Auto) 0.9 (0.0-4.3) % Baso % (Auto) 1.1 (0.0-1.8) % Lymph # 2.3 (1.2-5.4) K/mm3 [place]ance # 0.5 (0.0-0.8) K/mm3 Eos # 0.1 (0.0-0.4) K/mm3 Baso # 0.1 (0.0-0.1) K/mm3 Seg Neutrophils % 49.8 (40.0-70.0) % Seg Neutrophils # 2.9 (1.8-7.7) K/mm3 Sodium 140 (137-145) mmol/L Potassium 4.0 (3.6-5.0) mmol/L Chloride 104.1 (98-107) mmol/L Carbon Dioxide 24 (22-30) mmol/L Anion Gap 16 mmol/L BUN 22 H (7-17) mg/dL Creatinine 0.7 (0.6-1.2) mg/dL Estimated GFR > 60 ml/min BUN/Creatinine Ratio 31 % Glucose 83 (65-100) mg/dL Calcium 8.8 (8.4-10.2) mg/dL Total Bilirubin 0.20 (0.1-1.2) mg/dL AST 58 H (5-40) units/L ALT 17 (7-56) units/L Alkaline Phosphatase 65 (35-129) units/L Total Protein 6.8 (6.3-8.2) g/dL Albumin 4.2 (3.9-5) g/dL Albumin/Globulin Ratio 1.6 % Lipase (13-60) units/L Urine Color Straw (Yellow) Urine Turbidity Clear (Clear) Urine pH 6.0 (5.0-7.0) Ur Specific [place] 1.012 (1.003-1.030) Urine Protein <15 mg/dl (Negative) mg/dL Urine Glucose (UA) Neg (Negative) mg/dL Urine Ketones Neg (Negative) mg/dL Urine Blood Neg (Negative) Urine Nitrite Neg (Negative) Urine Bilirubin Neg (Negative) Urine Urobilinogen < 2.0 (<2.0) mg/dL Ur Leukocyte Esterase Neg (Negative) Urine WBC (Auto) < 1.0 (0.0-6.0) /HPF Urine RBC (Auto) 1.0 (0.0-6.0) /HPF U Epithel Cells (Auto) 3.0 (0-13.0) /HPF 12/27/19 Range/Units 11:10 WBC (4.5-11.0) K/mm3 RBC (3.65-5.03) M/mm3 Hgb (10.1-14.3) gm/dl Hct (30.3-42.9) % MCV (79-97) fl MCH (28-32) pg MCHC (30-34) % RDW (13.2-15.2) % Plt Count (140-440) K/mm3 Lymph % (Auto) (13.4-35.0) % [place] % (Auto) (0.0-7.3) % Eos % (Auto) (0.0-4.3) % Baso % (Auto) (0.0-1.8) % Lymph # (1.2-5.4) K/mm3 [place] # (0.0-0.8) K/mm3 Eos # (0.0-0.4) K/mm3 Baso # (0.0-0.1) K/mm3 Seg Neutrophils % (40.0-70.0) % Seg Neutrophils # (1.8-7.7) K/mm3 Sodium (137-145) mmol/L Potassium (3.6-5.0) mmol/L Chloride (98-107) mmol/L Carbon Dioxide (22-30) mmol/L Anion Gap mmol/L BUN (7-17) mg/dL Creatinine (0.6-1.2) mg/dL Estimated GFR ml/min BUN/Creatinine Ratio % Glucose (65-100) mg/dL Calcium (8.4-10.2) mg/dL Total Bilirubin (0.1-1.2) mg/dL AST (5-40) units/L ALT (7-56) units/L Alkaline Phosphatase (35-129) units/L Total Protein (6.3-8.2) g/dL Albumin (3.9-5) g/dL Albumin/Globulin Ratio % Lipase 106 H (13-60) units/L Urine Color (Yellow) Urine Turbidity (Clear) Urine pH (5.0-7.0) Ur Specific [place] (1.003-1.030) Urine Protein (Negative) mg/dL Urine Glucose (UA) (Negative) mg/dL Urine Ketones (Negative) mg/dL Urine Blood (Negative) Urine Nitrite (Negative) Urine Bilirubin (Negative) Urine Urobilinogen (<2.0) mg/dL Ur Leukocyte Esterase (Negative) Urine WBC (Auto) (0.0-6.0) /HPF Urine RBC (Auto) (0.0-6.0) /HPF U Epithel Cells (Auto) (0-13.0) /HPF - Radiology Data Radiology results: report reviewed - Medical Decision Making Review of the patient's medical record shows that she has had 5 CTs of the abdomen and pelvis within the last 18 months. At this time we would do an x-ray of the abdomen for evaluation of SBO. Patient is okay with this plan of action after discussing the risk with multiple exposures to radiation from CTs Patient has an extensive allergy list but states that she can take morphine and Zofran is given Benadryl. Patient states she has had these medications multiple times before with Benadryl with no issue. Discussed results with patient Critical care attestation.: If time is entered above; I have spent that time in minutes in the direct care of this critically ill patient, excluding procedure time. ED Disposition Clinical Impression: Abdominal pain Disposition: DC- TO HOME OR SELFCARE Is pt being admited?: No Does the pt Need Aspirin: No Condition: Stable Instructions: Abdominal Pain (ED) Additional Instructions: return if worse Referrals: PRIMARY CAREMD [Primary Care Provider] - 3-5 Days DIOGENES PERKINS MD [Staff Physician] - 3-5 Days Time of Disposition: 13:16
[2019-12-27 10:53] LABS: Bilirubin,Urine NEG (Negative); Blood,Urine NEG (Negative); Color,Urine Straw (Yellow); Protein,Urine <15 mg/dL mg/dL (Negative); Urobilinogen,Urine < 2.0 mg/dL (<2.0); WBC,Urine < 1.0 /HPF (0.0-6.0)
[2019-12-27] MEDS ORDERED: ONDANSETRON 4 MG/2 ML INJ IV ONE ×2 (11:14→13:13)
[2019-12-27] MEDS ORDERED: MORPHINE 4 MG/1 ML INJ IV ONE ×2 (11:14→13:13)
[2019-12-27] MEDS ORDERED: diphenhydrAMINE 50 MG/ML VIAL IV ONE ×2 (11:15→13:13)
--- NOTE | 2019-12-27 11:28 | XRay Report ---
CHEST 1 VIEW , ABDOMEN 2 VIEWS INDICATION / CLINICAL INFORMATION: abdominal pain. COMPARISON: 11/12/2018. FINDINGS: SUPPORT DEVICES: Right chest wall Port-A-Cath in stable position. HEART / MEDIASTINUM: No significant abnormality. LUNGS / PLEURA: No significant pulmonary or pleural abnormality. No pneumothorax or pleural effusion. ABDOMEN: Clips are noted of the right upper quadrant and in the pelvis. Nonobstructive bowel gas clair dotty. Abundant fecal material noted throughout the colon and rectal vault. ADDITIONAL FINDINGS: Phleboliths noted over the pelvis. IMPRESSION: 1. Findings consistent with constipation. 2. Nonobstructive bowel gas pattern. 3. No acute cardiopulmonary process. 4. Right chest wall Port-A-Cath in stable position. Signer Name: David Owens MD Signed: 12/27/2019 11:23 AM Workstation Name: [id number]
[2019-12-27 11:46] LABS: Alanine Aminotransferase 17 units/L (7-56); Albumin 4.2 g/dL (3.9-5); Blood Urea Nitrogen 22 mg/dL (7-17); Calcium 8.8 mg/dL (8.4-10.2); Hemolysis Index 3
[2019-12-27 11:50] LABS: BUN/Creatinine Ratio 31
[2019-12-27 11:54] LABS: Basophils # (Auto) 0.1 K/mm3 (0.0-0.1); Basophils % (Auto) 1.1 % (0.0-1.8); Eosinophils # (Auto) 0.1 K/mm3 (0.0-0.4); Eosinophils % (Auto) 0.9 % (0.0-4.3); Hemoglobin 10.7 gm/dl (10.1-14.3); Lymphocytes # (Auto) 2.3 K/mm3 (1.2-5.4); Lymphocytes % (Auto) 39.5 % (13.4-35.0); Mean Corpuscular HGB Conc 32 % (30-34); Mean Corpuscular Volume 84 fl (79-97); Monocytes # (Auto) 0.5 K/mm3 (0.0-0.8); Monocytes % (Auto) 8.7 % (0.0-7.3); Platelet Count 256 K/mm3 (140-440); Red Blood Count 3.94 M/mm3 (3.65-5.03); Red Cell Distribution Width 15.8 % (13.2-15.2)
[2019-12-27 13:29] VITALS: BP 145/92
== END 2019-12-27 14:00 | disposition home or self-care (01) ==
LOC: ED 08:05
DX: R10.9 Unspecified abdominal pain (principal); I10 Essential (primary) hypertension; K21.9 Gastro-esophageal reflux disease without esophagitis; N20.0 Calculus of kidney; J45.909 Unspecified asthma, uncomplicated; F17.200 Nicotine dependence, unspecified, uncomplicated; Z90.49 Acquired absence of other specified parts of digestive tract; Z79.899 Other long term (current) drug therapy; Z88.6 Allergy status to analgesic agent; Z88.8 Allergy status to other drugs, medicaments and biological substances
CPT/HCPCS: 36415; 74022; 80053; 81001; 83690; 85025; 93005; 96361; 96374; 96375; 96376; 99284; J1200; J1630; J1642; J2270; J2405; J7030

== ENCOUNTER 2020-02-26 18:17 | Emergency (ER) | payer MEDICAID ==
[2020-02-26] MEDS ORDERED: HYDROmorphone 1 MG/1 ML INJ IV ONE (21:58)
[2020-02-26] MEDS ORDERED: SODIUM CHLORIDE 0.9% 1000 ML 1,000 ML IV ONE (21:58)
[2020-02-26 22:07] LABS: Hematocrit 32.6 % (30.3-42.9); Hemoglobin 10.6 gm/dl (10.1-14.3); Mean Corpuscular HGB Conc 32 % (30-34); Mean Corpuscular Volume 85 fl (79-97); Platelet Count 212 K/mm3 (140-440); Red Blood Count 3.85 M/mm3 (3.65-5.03); Red Cell Distribution Width 16.1 % (13.2-15.2)
--- NOTE | 2020-02-26 22:13 | Emergency Department Report ---
HPI - General Chief Complaint: Abdominal Pain Time Seen by Provider: 02/26/20 21:50 - HPI HPI: Room 4 The patient is a 44-year-old female present with a chief complaint of abdominal pain. Patient states for the past 2 days she has had nausea vomiting and last night her abdominal pain became severe. Patient states she has abdominal pain from her gastroparesis last night his pain worsened and seem to emanate mostly from the right side of her abdomen which is unusual for her. Patient denies any history of fever. Patient denies any known sick contacts including COVID-19 positive patient ED Past Medical Hx - Past Medical History Previous Medical History?: Yes Hx Hypertension: Yes Hx GERD: Yes (Gastroparesis) Hx Renal Disease: Yes (renal failure- now in remission) Hx Kidney Stones: Yes Hx Asthma: Yes Additional medical history: ovarian/lung ca, gastroparesis, IBS, chronic pancreatitis, anemia. (LYMPHOMA LUNG), pyelonephritis, herpes, Small bowel obstruction,. PORT RIGHT CHEST, pancreatits - Surgical History Past Surgical History?: Yes Hx Cholecystectomy: Yes Additional Surgical History: fistula repair, lower bowel dissection, stents (in/out), hysterectomy. Power port - Family History Family history: no significant - Social History Smoking Status: Current Some Day Smoker Substance Use Type: None - Medications Home Medications: Home Medications Medication Instructions Recorded Confirmed Last Taken Type Ondansetron (Nf) [Zofran TAB] 8 mg PO Q8HR PRN #14 tablet 11/14/18 Unknown Rx Pantoprazole [Protonix TAB] 40 mg PO QDAY #14 tablet 11/14/18 Unknown Rx oxyCODONE /ACETAMINOPHEN [Percocet 1 tab PO Q6H PRN #4 tablet 11/14/18 Unknown Rx 5/325 mg] Promethazine [Phenergan TAB] 25 mg PO Q6HR PRN #20 tab 12/11/18 Unknown Rx Dicyclomine [Bentyl] 20 mg PO QID #10 tablet 03/11/19 Unknown Rx Promethazine HCl [Phenergan SUPPOS] 25 mg RC BID #10 supp.rect 03/11/19 Unknown Rx Promethazine [Phenergan] 25 mg PO Q6HR PRN #20 tab 03/11/19 Unknown Rx Gabapentin 100 mg PO Q8HR #12 capsule 08/15/19 Unknown Rx traMADoL [Ultram 50 MG tab] 50 mg PO Q6HR PRN #12 tablet 08/15/19 Unknown Rx traMADoL [Ultram 50 MG tab] 50 mg PO Q6HR PRN #10 tablet 10/27/19 Unknown Rx HYDROcodone/APAP 7.5-325 [[place] 1 each PO Q6HR PRN #15 tablet 12/27/19 Unknown Rx 7.5/325] Ondansetron [Zofran Odt] 4 mg PO Q4HR PRN #20 tab.rapdis 12/27/19 Unknown Rx Promethazine [Phenergan TAB] 25 mg PO Q6HR PRN #20 tab 12/27/19 Unknown Rx metroNIDAZOLE [Flagyl] 500 mg PO Q12HR #14 tab 01/10/20 Unknown Rx Promethazine [Phenergan] 25 mg PO Q6HR PRN #20 tab 02/26/20 Unknown Rx Promethazine [Phenergan] 25 mg [place] Q6HR PRN #5 supp.rect 02/26/20 Unknown Rx traMADoL [Ultram] 50 mg PO Q6HR PRN #10 tablet 02/26/20 Unknown Rx ED Review of Systems ROS: Stated complaint: FLANK PAIN Other details as noted in HPI Constitutional: denies: fever Respiratory: no symptoms reported Endocrine: no symptoms reported Gastrointestinal: abdominal pain, nausea, vomiting Physical Exam - Physical Exam Vital Signs: Vital Signs 02/26/20 18:43 Temperature 98.9 F Pulse Rate 88 Respiratory 18 Rate Blood Pressure 114/70 [Right] O2 Sat by Pulse 100 Oximetry Physical Exam: GENERAL: The patient is well-developed well-nourished female lying on stretcher not appearing to be in acute distress. [] HEENT: Normocephalic. Atraumatic. Extraocular motions are intact. Patient has moist mucous membranes. NECK: Supple. Trachea midline CHEST/LUNGS: Clear to auscultation. There is no respiratory distress noted. HEART/CARDIOVASCULAR: Regular. There is no tachycardia. There is no gallop rub or murmur. ABDOMEN: Abdomen is soft, nontender to palpation on the left abdomen. Patient has normal bowel sounds. There is no abdominal distention. SKIN: There is no rash. There is no edema. There is no diaphoresis. NEURO: The patient is awake, alert, and oriented. The patient is cooperative. The patient has normal speech MUSCULOSKELETAL: There is no evidence of acute injury. ED Course Vital Signs 02/26/20 18:43 Temperature 98.9 F Pulse Rate 88 Respiratory 18 Rate Blood Pressure 114/70 [Right] O2 Sat by Pulse 100 Oximetry ED Medical Decision Making - Lab Data Result diagrams: 02/26/20 21:55 02/26/20 21:55 Laboratory Tests 02/26/20 02/26/20 02/26/20 21:55 21:55 21:55 WBC 5.5 RBC 3.85 Hgb 10.6 Hct 32.6 MCV 85 MCH 27 L MCHC 32 RDW 16.1 H Plt Count 212 Lymph % (Auto) Top Closer Seg Neutrophils % Top Closer Sodium 143 Potassium 4.3 Chloride 105.2 Carbon Dioxide 25 Anion Gap 17 BUN 13 Creatinine 0.6 Estimated GFR > 60 BUN/Creatinine Ratio 22 Glucose 85 Calcium 8.6 Total Bilirubin < 0.20 AST 54 H ALT 26 Alkaline Phosphatase 69 Total Protein 6.6 Albumin 4.2 Albumin/Globulin Ratio 1.8 Lipase 51 Urine Color Urine Turbidity Urine pH Ur Specific [place] Urine Protein Urine Glucose (UA) Urine Ketones Urine Blood Urine Nitrite Urine Bilirubin Urine Urobilinogen Ur Leukocyte Esterase Urine WBC (Auto) Urine RBC (Auto) U Epithel Cells (Auto) Urine Mucus 02/26/20 Unknown WBC RBC Hgb Hct MCV MCH MCHC RDW Plt Count Lymph % (Auto) Seg Neutrophils % Sodium Potassium Chloride Carbon Dioxide Anion Gap BUN Creatinine Estimated GFR BUN/Creatinine Ratio Glucose Calcium Total Bilirubin AST ALT Alkaline Phosphatase Total Protein Albumin Albumin/Globulin Ratio Lipase Urine Color Yellow Urine Turbidity Clear Urine pH 5.0 Ur Specific [place] 1.032 H Urine Protein 30 mg/dl Urine Glucose (UA) Neg Urine Ketones Neg Urine Blood Neg Urine Nitrite Neg Urine Bilirubin Neg Urine Urobilinogen < 2.0 Ur Leukocyte Esterase Tr Urine WBC (Auto) 5.0 Urine RBC (Auto) 5.0 U Epithel Cells (Auto) 14.0 H Urine Mucus 2+ - Radiology Data Radiology results: report reviewed (CT abdomen pelvis), image reviewed (CT abdomen pelvis) [facility] [address] [place] [address] Cat Scan Report Signed Patient: SONJA SERNA MR#: [id number] : 1975 Acct:[id number] Age/Sex: 44 / F ADM Date: 02/26/20 Loc: ED Attending Dr: Ordering Physician: JACKSON CAI MD Date of Service: 02/26/20 Procedure(s): CT abdomen pelvis wo con Accession Number(s): [id number] cc: JACKSON CAI MD CT abdomen pelvis wo con INDICATION: Right-sided abd pain. History of recent Diverticulitis. TECHNIQUE: All CT scans at this location are performed using the following dose modulation technique: Automated exposure control. Helical slices were obtained through the abdomen and pelvis. No contrast is administered. COMPARISON: CT scan dated 10/27/2019 FINDINGS: Abdomen: No acute abnormality is seen in the lower chest. The liver, spleen, pancreas, adrenal glands, and kidneys show no acute abnormality. There are no ureteral calculi. There is parenchymal calcification the mid left kidney which is unchanged from prior imaging Calyceal stones are seen. There is no hydronephrosis. The aorta is normal in diameter. There is no adenopathy. Pelvis: The appendix is unremarkable. There is a moderate to large amount of stool noted in the sigmoid colon and rectum. There is no inflammatory change. On review of bone windows, no acute osseous abnormalities are seen. IMPRESSION: 1. There is no obstruction, inflammation, or free air. There are no abnormal fluid collections. Signer Name: Matt Hernandez MD Signed: 02/26/2020 11:11 PM Workstation Name: [id number] Transcribed By: Dictated By: Matt Hernandez MD Electronically Authenticated By: Matt Hernandez MD Signed Date/Time: 02/26/202310 DD/ 05 TD/TT: - Differential Diagnosis Gastroparesis, small bowel obstruction, gastritis, enteritis, Critical care attestation.: If time is entered above; I have spent that time in minutes in the direct care of this critically ill patient, excluding procedure time. ED Disposition Clinical Impression: Acute abdominal pain Disposition: DC-01 TO HOME OR SELFCARE Is pt being admited?: No Does the pt Need Aspirin: No Condition: Stable Instructions: Abdominal Pain (ED) Additional Instructions: Return to the emergency department should you develop worsening symptoms, inability to tolerate food or liquids, high fever or any other concerns Prescriptions: Promethazine [Phenergan] 25 mg PO Q6HR PRN #20 tab PRN Reason: Nausea Promethazine [Phenergan] 25 mg [place] Q6HR PRN #5 supp.rect PRN Reason: Vomiting traMADoL [Ultram] 50 mg PO Q6HR PRN #10 tablet PRN Reason: Pain Referrals: MAGDA [facility] [Primary Care Provider] - 3-5 Days Time of Disposition: 23:46
[2020-02-26 22:19] LABS: Bilirubin,Urine NEG (Negative); Blood,Urine NEG (Negative); Color,Urine Yellow (Yellow); Mucus,Urine 2+ /HPF; Urobilinogen,Urine < 2.0 mg/dL (<2.0)
[2020-02-26] MEDS: PROMETHAZINE 25 MG RECT SUPP PR ONE ×2 (22:19→22:20)
[2020-02-26] MEDS ORDERED: diphenhydrAMINE 50 MG/ML VIAL ONE (22:21)
[2020-02-26] MEDS ORDERED: diphenhydrAMINE 50 MG/ML VIAL IV ONE (22:23)
[2020-02-26 22:25] LABS: Alanine Aminotransferase 26 units/L (7-56); Albumin 4.2 g/dL (3.9-5); Blood Urea Nitrogen 13 mg/dL (7-17); Calcium 8.6 mg/dL (8.4-10.2); Hemolysis Index 7
[2020-02-26 22:26] LABS: BUN/Creatinine Ratio 22
--- NOTE | 2020-02-26 23:15 | Cat Scan Report ---
CT abdomen pelvis wo con INDICATION: Right-sided abd pain. History of recent Diverticulitis. TECHNIQUE: All CT scans at this location are performed using the following dose modulation technique: Automated exposure control. Helical slices were obtained through the abdomen and pelvis. No contrast is adminis tered. COMPARISON: CT scan dated 10/27/2019 FINDINGS: Abdomen: No acute abnormality is seen in the lower chest. The liver, spleen, pancreas, adrenal glands , and kidneys show no acute abnormality. There are no ureteral calculi. There is parenchymal calcific ation the mid left kidney which is unchanged from prior imaging Calyceal stones are seen. There is no hydronephrosis. The aorta is normal in diameter. There is no ad enopathy. Pelvis: The appendix is unremarkable. There is a moderate to large amount of stool noted in the sigmo id colon and rectum. There is no inflammatory change. On review of bone windows, no acute osseous abnormalities are seen. IMPRESSION: 1. There is no obstruction, inflammation, or free air. There are no abnormal fluid collections. Signer Name: Matt Hernandez MD Signed: 02/26/2020 11:11 PM Workstation Name: [id number]
[2020-02-27] VITALS: BP 116/68
[2020-02-27 00:08] LABS: Ovalocytes Few; Total Cells Counted 100
[2020-02-27 00:12] LABS: Platelet Estimate Consistent w Auto
== END 2020-02-27 | disposition home or self-care (01) ==
LOC: ED 18:17
DX: R10.9 Unspecified abdominal pain (principal); I10 Essential (primary) hypertension; K21.9 Gastro-esophageal reflux disease without esophagitis; J45.909 Unspecified asthma, uncomplicated; Z87.442 Personal history of urinary calculi; Z90.49 Acquired absence of other specified parts of digestive tract; Z90.710 Acquired absence of both cervix and uterus; Z98.890 Other specified postprocedural states; F17.200 Nicotine dependence, unspecified, uncomplicated; Z79.899 Other long term (current) drug therapy; Z88.8 Allergy status to other drugs, medicaments and biological substances
CPT/HCPCS: 36415; 74176; 80053; 81001; 83690; 85007; 85025; 96361; 96374; 96375; 99284; J1170; J1200; J1642; J7030

== ENCOUNTER 2020-03-14 09:30 | Emergency (ER) | payer MEDICAID ==
[2020-03-14 09:52] VITALS: BP 116/77
[2020-03-14] MEDS ORDERED: PROMETHAZINE 25 MG TAB PO ONE (13:22)
[2020-03-14] MEDS ORDERED: DICYCLOMINE 20 MG/2 ML INJ IM ONE (13:22)
[2020-03-14] MEDS ORDERED: FAMOTIDINE 20 MG/2 ML INJ IV ONE (13:22)
[2020-03-14] MEDS ORDERED: SODIUM CHLORIDE 0.9% 1000 ML 1,000 ML IV ONE (13:22)
[2020-03-14 14:38] LABS: Basophils % (Auto) 0.7 % (0.0-1.8); Eosinophils # (Auto) 0.1 K/mm3 (0.0-0.4); Eosinophils % (Auto) 1.2 % (0.0-4.3); Hematocrit 35.1 % (30.3-42.9); Hemoglobin 11.5 gm/dl (10.1-14.3); Lymphocytes # (Auto) 2.2 K/mm3 (1.2-5.4); Lymphocytes % (Auto) 49.3 % (13.4-35.0); Mean Corpuscular HGB Conc 33 % (30-34); Mean Corpuscular Volume 85 fl (79-97); Monocytes # (Auto) 0.3 K/mm3 (0.0-0.8); Monocytes % (Auto) 7.7 % (0.0-7.3); Platelet Count 182 K/mm3 (140-440); Red Blood Count 4.15 M/mm3 (3.65-5.03); Red Cell Distribution Width 16.6 % (13.2-15.2)
[2020-03-14 14:46] LABS: Bilirubin,Urine NEG (Negative); Blood,Urine SM (Negative); Color,Urine Yellow (Yellow); Mucus,Urine 2+ /HPF; Urobilinogen,Urine < 2.0 mg/dL (<2.0)
[2020-03-14 14:53] LABS: Alanine Aminotransferase 28 units/L (7-56); Albumin 4.2 g/dL (3.9-5); Blood Urea Nitrogen 7 mg/dL (7-17); Calcium 8.9 mg/dL (8.4-10.2); Hemolysis Index 3
[2020-03-14 14:55] LABS: BUN/Creatinine Ratio 12
--- NOTE | 2020-03-14 14:57 | Emergency Department Report ---
ED Abdominal Pain HPI - General Chief Complaint: Abdominal Pain Stated Complaint: POSS OBSTRUCTION Time Seen by Provider: 03/14/20 12:41 Source: patient Mode of arrival: Ambulatory Limitations: No Limitations - History of Present Illness Initial Comments: Patient is a 44-year-old F [place] female well-known to our department who is here for abdominal pain. Patient has a history of chronic abdominal pain. Today is her eighth visit for this year. Patient states that she saw her GI doctor several days ago and because her CAT scan showed constipation was placed on laxative. Patient states she has had loose stools since as well as nausea vomiting. States she has crampy bilateral abdominal pain. She denies any fevers chills cough cold or congestion. Severity scale (0 -10): 8 - Related Data Previous Rx's Medication Instructions Recorded Last Taken Type Ondansetron (Nf) [Zofran TAB] 8 mg PO Q8HR PRN #14 tablet 11/14/18 Unknown Rx Pantoprazole [Protonix TAB] 40 mg PO QDAY #14 tablet 11/14/18 Unknown Rx oxyCODONE /ACETAMINOPHEN [Percocet 1 tab PO Q6H PRN #4 tablet 11/14/18 Unknown Rx 5/325 mg] Promethazine [Phenergan TAB] 25 mg PO Q6HR PRN #20 tab 12/11/18 Unknown Rx Dicyclomine [Bentyl] 20 mg PO QID #10 tablet 03/11/19 Unknown Rx Promethazine HCl [Phenergan SUPPOS] 25 mg RC BID #10 supp.rect 03/11/19 Unknown Rx Promethazine [Phenergan] 25 mg PO Q6HR PRN #20 tab 03/11/19 Unknown Rx Gabapentin 100 mg PO Q8HR #12 capsule 08/15/19 Unknown Rx traMADoL [Ultram 50 MG tab] 50 mg PO Q6HR PRN #12 tablet 08/15/19 Unknown Rx traMADoL [Ultram 50 MG tab] 50 mg PO Q6HR PRN #10 tablet 10/27/19 Unknown Rx HYDROcodone/APAP 7.5-325 [[place] 1 each PO Q6HR PRN #15 tablet 12/27/19 Unknown Rx 7.5/325] Ondansetron [Zofran Odt] 4 mg PO Q4HR PRN #20 tab.rapdis 12/27/19 Unknown Rx Promethazine [Phenergan TAB] 25 mg PO Q6HR PRN #20 tab 12/27/19 Unknown Rx metroNIDAZOLE [Flagyl] 500 mg PO Q12HR #14 tab 01/10/20 Unknown Rx Promethazine [Phenergan] 25 mg PO Q6HR PRN #20 tab 02/26/20 Unknown Rx Promethazine [Phenergan] 25 mg IN Q6HR PRN #5 supp.rect 02/26/20 Unknown Rx traMADoL [Ultram] 50 mg PO Q6HR PRN #10 tablet 02/26/20 Unknown Rx Allergies Allergy/AdvReac Type Severity Reaction Status Date / Time codeine Allergy Itching Verified 09/13/18 07:52 fentanyl Allergy Hives Verified 09/13/18 07:52 ketorolac tromethamine Allergy Itching Verified 09/13/18 07:52 [From Toradol] metoclopramide HCl Allergy Hives Verified 09/13/18 07:52 [From Reglan] morphine Allergy Hives Verified 09/13/18 07:52 ondansetron HCl [From Zofran] Allergy Hives Verified 12/24/16 08:17 prochlorperazine edisylate Allergy Hives Verified 09/13/18 07:52 [From Compazine] prochlorperazine maleate Allergy Hives Verified 09/13/18 07:52 [From Compazine] ED Review of Systems ROS: Stated complaint: POSS OBSTRUCTION Other details as noted in HPI Comment: All other systems reviewed and negative ED Past Medical Hx - Past Medical History Previous Medical History?: Yes Hx Hypertension: Yes Hx GERD: Yes (Gastroparesis) Hx Renal Disease: Yes (renal failure- now in remission) Hx Kidney Stones: Yes Hx Asthma: Yes Additional medical history: ovarian/lung ca, gastroparesis, IBS, chronic pancreatitis, anemia. (LYMPHOMA LUNG), pyelonephritis, herpes, Small bowel obstruction,. PORT RIGHT CHEST, pancreatits - Surgical History Past Surgical History?: Yes Hx Open Heart Surgery: No Hx Pacemaker: No Hx Internal Defibrillator: No Hx Cholecystectomy: Yes Additional Surgical History: fistula repair, lower bowel dissection, stents (in/out), hysterectomy. Power port - Social History Smoking Status: Never Smoker Substance Use Type: Alcohol, Prescribed - Medications Home Medications: Home Medications Medication Instructions Recorded Confirmed Last Taken Type Ondansetron (Nf) [Zofran TAB] 8 mg PO Q8HR PRN #14 tablet 11/14/18 Unknown Rx Pantoprazole [Protonix TAB] 40 mg PO QDAY #14 tablet 11/14/18 Unknown Rx oxyCODONE /ACETAMINOPHEN [Percocet 1 tab PO Q6H PRN #4 tablet 11/14/18 Unknown Rx 5/325 mg] Promethazine [Phenergan TAB] 25 mg PO Q6HR PRN #20 tab 12/11/18 Unknown Rx Dicyclomine [Bentyl] 20 mg PO QID #10 tablet 03/11/19 Unknown Rx Promethazine HCl [Phenergan SUPPOS] 25 mg RC BID #10 supp.rect 03/11/19 Unknown Rx Promethazine [Phenergan] 25 mg PO Q6HR PRN #20 tab 03/11/19 Unknown Rx Gabapentin 100 mg PO Q8HR #12 capsule 08/15/19 Unknown Rx traMADoL [Ultram 50 MG tab] 50 mg PO Q6HR PRN #12 tablet 08/15/19 Unknown Rx traMADoL [Ultram 50 MG tab] 50 mg PO Q6HR PRN #10 tablet 10/27/19 Unknown Rx HYDROcodone/APAP 7.5-325 [[place] 1 each PO Q6HR PRN #15 tablet 12/27/19 Unknown Rx 7.5/325] Ondansetron [Zofran Odt] 4 mg PO Q4HR PRN #20 tab.rapdis 12/27/19 Unknown Rx Promethazine [Phenergan TAB] 25 mg PO Q6HR PRN #20 tab 12/27/19 Unknown Rx metroNIDAZOLE [Flagyl] 500 mg PO Q12HR #14 tab 01/10/20 Unknown Rx Promethazine [Phenergan] 25 mg PO Q6HR PRN #20 tab 02/26/20 Unknown Rx Promethazine [Phenergan] 25 mg IN Q6HR PRN #5 supp.rect 02/26/20 Unknown Rx traMADoL [Ultram] 50 mg PO Q6HR PRN #10 tablet 02/26/20 Unknown Rx ED Physical Exam - General Limitations: No Limitations General appearance: alert, in no apparent distress - Head Head exam: Present: atraumatic, normocephalic - Eye Eye exam: Present: normal appearance - ENT ENT exam: Present: mucous membranes moist - Neck Neck exam: Present: normal inspection - Respiratory Respiratory exam: Present: normal lung sounds bilaterally. Absent: respiratory distress, wheezes, rales, rhonchi - Cardiovascular Cardiovascular Exam: Present: regular rate, normal rhythm. Absent: systolic murmur, diastolic murmur, rubs, gallop - GI/Abdominal GI/Abdominal exam: Present: soft, tenderness, normal bowel sounds. Absent: distended, guarding, rebound, rigid - Extremities Exam Extremities exam: Present: normal inspection - Back Exam Back exam: Present: normal inspection - Neurological Exam Neurological exam: Present: alert, oriented X3 - Psychiatric Psychiatric exam: Present: normal affect, normal mood - Skin Skin exam: Present: warm, dry, intact, normal color. Absent: rash ED Course Vital Signs 03/14/20 09:51 Temperature 98.1 F Pulse Rate 94 H Respiratory 15 Rate Blood Pressure 116/77 [Right] O2 Sat by Pulse 100 Oximetry ED Medical Decision Making - Lab Data Result diagrams: 03/14/20 Unknown 03/14/20 Unknown - Medical Decision Making Patient has a great deal of allergies but we did offer her some Bentyl and Phenergan for her nausea and abdominal cramps. Patient declined both of these medications. She did accept the IV fluids. Patient is requesting Dilaudid which I do not feel is needed for condition at this time. Patient states that she has emergency and needs to leave the emergency department. Patient signed out AGAINST MEDICAL ADVICE. Critical care attestation.: If time is entered above; I have spent that time in minutes in the direct care of this critically ill patient, excluding procedure time. ED Disposition Clinical Impression: Chronic abdominal pain Disposition: LEFT AGAINST MED ADVICE Is pt being admited?: No Does the pt Need Aspirin: No Condition: Stable Instructions: Abdominal Pain (ED) Referrals: PRIMARY CARE, [Primary Care Provider] - 3-5 Days
== END 2020-03-14 14:35 | disposition left against medical advice (07) ==
LOC: ED 09:30
DX: R10.9 Unspecified abdominal pain (principal); G89.29 Other chronic pain; R11.2 Nausea with vomiting, unspecified; R19.7 Diarrhea, unspecified; I10 Essential (primary) hypertension; K21.9 Gastro-esophageal reflux disease without esophagitis; K31.84 Gastroparesis; J45.909 Unspecified asthma, uncomplicated; Z86.2 Personal history of diseases of the blood and blood-forming organs and certain disorders involving the immune mechanism; Z85.118 Personal history of other malignant neoplasm of bronchus and lung; Z90.710 Acquired absence of both cervix and uterus; Z90.49 Acquired absence of other specified parts of digestive tract; Z79.899 Other long term (current) drug therapy; Z88.6 Allergy status to analgesic agent; Z88.8 Allergy status to other drugs, medicaments and biological substances
CPT/HCPCS: 36415; 80053; 81001; 83690; 85025; 99283; J0500; J1642; J7030; Q0169

== ENCOUNTER 2020-04-13 10:31 | Emergency (ER) | payer MEDICAID ==
[2020-04-13 11:05] VITALS: BP 131/86
--- NOTE | 2020-04-13 11:54 | Event Note ---
ED Screening Note ED Screening Note: Patient is a 44-year-old female presents emergency room complaints of nausea, vomiting, diarrhea that began 2 days ago. She has associated generalized abdominal pain. She states it has been several months since she has seen a GI doctor. She states that she is concerned she may have C. difficile again bec ause her diarrhea has mucus. She has a past medical history of gastroparesis, IBS, C. difficile, lymphoma, ovarian cancer. She has a port which she had placed 5 years ago. She has multiple medication allergies. This initial assessment/diagnostic orders/clinical plan/treatment(s) is/are subject to change based on patients health status, clinical progression and re- assessment by fellow clinical providers in the ED. Further treatment and workup at subsequent clinical providers discretion. Patient/guardian urged not to elope from the ED as their condition may be serious if not clinically assessed and managed. Initial orders include: Labs, urine Patient states "I am not being stuck for labs because I have a port" Patient be sent to the main ED given significant medical history
[2020-04-13] MEDS ORDERED: ONDANSETRON 4 MG/2 ML INJ IM ONE (13:35)
[2020-04-13] MEDS ORDERED: HYDROmorphone 1 MG/1 ML INJ IM ONE (13:35)
--- NOTE | 2020-04-13 13:47 | Emergency Department Report ---
HPI - General Chief Complaint: Abdominal Pain Time Seen by Provider: 04/13/20 11:52 - HPI HPI: Room 38 The patient is a 44-year-old female present with a chief complaint of abdominal pain and diarrhea. The patient has a history of chronic abdominal pain states she has had intermittent flareups of diarrhea at her baseline however for the past 2 to 3 weeks she has had frequent diarrhea sometimes with bloody mucus. Patient states this is unusual for her. Patient complains of pain in the right lower quadrant of her abdomen and admits to nausea and vomiting. Patient admits to fever 101 F. Patient denies any recent antibiotic use ED Past Medical Hx - Past Medical History Previous Medical History?: Yes Hx Hypertension: Yes Hx GERD: Yes (Gastroparesis) Hx Renal Disease: Yes (renal failure- now in remission) Hx Kidney Stones: Yes Hx Asthma: Yes Additional medical history: ovarian/lung ca, gastroparesis, IBS, chronic pancreatitis, anemia. (LYMPHOMA LUNG), pyelonephritis, herpes, Small bowel obstruction,. PORT RIGHT CHEST, pancreatits - Surgical History Past Surgical History?: Yes Hx Cholecystectomy: Yes Additional Surgical History: fistula repair, lower bowel dissection, stents (in/out), hysterectomy. Power port - Family History Family history: no significant - Social History Smoking Status: Never Smoker Substance Use Type: Alcohol, Prescribed - Medications Home Medications: Home Medications Medication Instructions Recorded Confirmed Last Taken Type Ondansetron (Nf) [Zofran TAB] 8 mg PO Q8HR PRN #14 tablet 11/14/18 Unknown Rx Pantoprazole [Protonix TAB] 40 mg PO QDAY #14 tablet 11/14/18 Unknown Rx oxyCODONE /ACETAMINOPHEN [Percocet 1 tab PO Q6H PRN #4 tablet 11/14/18 Unknown Rx 5/325 mg] Promethazine [Phenergan TAB] 25 mg PO Q6HR PRN #20 tab 12/11/18 Unknown Rx Dicyclomine [Bentyl] 20 mg PO QID #10 tablet 03/11/19 Unknown Rx Promethazine HCl [Phenergan SUPPOS] 25 mg RC BID #10 supp.rect 03/11/19 Unknown Rx Promethazine [Phenergan] 25 mg PO Q6HR PRN #20 tab 03/11/19 Unknown Rx Gabapentin 100 mg PO Q8HR #12 capsule 04/09/20 Unknown Rx traMADoL [Ultram 50 MG tab] 50 mg PO Q6HR PRN #12 tablet 08/15/19 Unknown Rx traMADoL [Ultram 50 MG tab] 50 mg PO Q6HR PRN #10 tablet 10/27/19 Unknown Rx HYDROcodone/APAP 7.5-325 [[place] 1 each PO Q6HR PRN #15 tablet 12/27/19 Unknown Rx 7.5/325] Ondansetron [Zofran Odt] 4 mg PO Q4HR PRN #20 tab.rapdis 12/27/19 Unknown Rx Promethazine [Phenergan TAB] 25 mg PO Q6HR PRN #20 tab 12/27/19 Unknown Rx metroNIDAZOLE [Flagyl] 500 mg PO Q12HR #14 tab 01/10/20 Unknown Rx Promethazine [Phenergan] 25 mg PO Q6HR PRN #20 tab 02/26/20 Unknown Rx Promethazine [Phenergan] 25 mg DE Q6HR PRN #5 supp.rect 02/26/20 Unknown Rx traMADoL [Ultram] 50 mg PO Q6HR PRN #10 tablet 02/26/20 Unknown Rx Diphenoxylate/Atropine [Lomotil] 1 - 2 tab PO QID PRN #20 tablet 04/13/20 Unknown Rx HYDROcodone/APAP 5-325 [[place] 1 - 2 each PO Q6HR PRN #10 tablet 04/13/20 Unknown Rx 5/325] Promethazine [Phenergan] 25 mg PO Q6HR PRN #20 tab 04/13/20 Unknown Rx ED Review of Systems ROS: Stated complaint: BOILS PAINFUL Other details as noted in HPI Constitutional: fever Eyes: denies: eye pain ENT: denies: throat pain Respiratory: no symptoms reported Cardiovascular: denies: chest pain Endocrine: no symptoms reported Gastrointestinal: abdominal pain, nausea, vomiting, diarrhea Musculoskeletal: denies: back pain Neurological: denies: headache Physical Exam - Physical Exam Vital Signs: Vital Signs 04/13/20 11:05 Temperature 99 F Pulse Rate 88 Respiratory 18 Rate Blood Pressure 131/86 [Right] O2 Sat by Pulse 98 Oximetry Physical Exam: GENERAL: The patient is well-developed well-nourished female lying on stretcher appearing to be in mild discomfort. [] HEENT: Normocephalic. Atraumatic. Extraocular motions are intact. Patient has moist mucous membranes. NECK: Supple. Trachea midline CHEST/LUNGS: Clear to auscultation. There is no respiratory distress noted. HEART/CARDIOVASCULAR: Regular. There is no tachycardia. There is no gallop rub or murmur. ABDOMEN: Abdomen is soft, with diffuse discomfort to palpation greatest in the right lower quadrant. Patient has normal bowel sounds. There is no abdominal distention. SKIN: There is no rash. There is no edema. There is no diaphoresis. NEURO: The patient is awake, alert, and oriented. The patient is cooperative. The patient has normal speech MUSCULOSKELETAL: There is no evidence of acute injury. ED Course Vital Signs 04/13/20 11:05 Temperature 99 F Pulse Rate 88 Respiratory 18 Rate Blood Pressure 131/86 [Right] O2 Sat by Pulse 98 Oximetry ED Medical Decision Making - Lab Data Result diagrams: 04/13/20 Unknown 04/13/20 Unknown Laboratory Tests 04/13/20 04/13/20 04/13/20 16:00 Unknown Unknown WBC 6.1 RBC 4.08 Hgb 11.2 Hct 34.8 MCV 85 MCH 27 L MCHC 32 RDW 16.1 H Plt Count 233 Lymph % (Auto) 44.7 H [place] % (Auto) 8.9 H Eos % (Auto) 0.4 Baso % (Auto) 1.2 Lymph # (Auto) 2.7 [place] # (Auto) 0.5 Eos # (Auto) 0.0 Baso # (Auto) 0.1 Seg Neutrophils % 44.8 Seg Neutrophils # 2.7 Sodium 139 Potassium 3.7 Chloride 101.3 Carbon Dioxide 28 Anion Gap 13 BUN 14 Creatinine 0.8 Estimated GFR > 60 BUN/Creatinine Ratio 18 Glucose 88 Calcium 9.8 Total Bilirubin 0.40 AST 47 H ALT 13 Alkaline Phosphatase 70 Total Protein 7.4 Albumin 4.5 Albumin/Globulin Ratio 1.6 Lipase 86 H Urine Color Straw Urine Turbidity Clear Urine pH 6.0 Ur Specific [place] 1.014 Urine Protein <15 mg/dl Urine Glucose (UA) Neg Urine Ketones Tr Urine Blood Sm Urine Nitrite Neg Urine Bilirubin Neg Urine Urobilinogen < 2.0 Ur Leukocyte Esterase Neg Urine WBC (Auto) 1.0 Urine RBC (Auto) 5.0 U Epithel Cells (Auto) 1.0 Urine Bacteria (Auto) 1+ Urine Mucus Few - Radiology Data Radiology results: report reviewed (CT abdomen pelvis), image reviewed (CT abdomen pelvis) Findings [facility] [address] [place] [address] Cat Scan Report Signed Patient: SONJA SERNA MR#: [id number] : 1975 Acct:[id number] Age/Sex: 44 / F ADM Date: 04/13/20 Loc: ED Attending Dr: Ordering Physician: JACKSON CAI MD Date of Service: 04/13/20 Procedure(s): CT abdomen pelvis wo con Accession Number(s): [id number] cc: JACKSON CAI MD CT abdomen pelvis wo con INDICATION: Diffuse abdominal pain greatest in RLQ, n/v/d. TECHNIQUE: All CT scans at this location are performed using the following dose modulation technique: Automated exposure control. CONTRAST: None. COMPARISON: None available. CT ABDOMEN: The parenchymal organs are unremarkable in appearance. Negative for abdominal mass, fluid or inflammation. The bowel is not dilated or thickened. Status post previous cholecystectomy. No biliary dilatation. CT PELVIS: Negative for distal ureteral stone, pelvic fluid collection or inflammation. The appendix is normal. Status post previous hysterectomy. IMPRESSION: Negative for obstruction or localized inflammation. Signer Name: Osiel Christopher MD Signed: 04/13/2020 2:16 PM Workstation Name: [id number] Transcribed By: ES Dictated By: Osiel Christopher MD Electronically Authenticated By: Osiel Christopher MD Signed Date/Time: 04/13/201415 DD/ 12 TD/TT: - Differential Diagnosis Gastroenteritis, partial small bowel obstruction, chronic abdominal pain Critical care attestation.: If time is entered above; I have spent that time in minutes in the direct care of this critically ill patient, excluding procedure time. ED Disposition Clinical Impression: Acute abdominal pain, Diarrhea Disposition: DC-01 TO HOME OR SELFCARE Is pt being admited?: No Does the pt Need Aspirin: No Condition: Stable Instructions: Abdominal Pain (ED) Additional Instructions: Return to the emergency department should you develop worsening symptoms, inability to tolerate food or liquids, high fever or any other concerns Prescriptions: Diphenoxylate/Atropine [Lomotil] 1 - 2 tab PO QID PRN #20 tablet PRN Reason: Diarrhea HYDROcodone/APAP 5-325 [[place] 5/325] 1 - 2 each PO Q6HR PRN #10 tablet PRN Reason: Pain Promethazine [Phenergan] 25 mg PO Q6HR PRN #20 tab PRN Reason: Nausea Referrals: KATHY WINCHESTER MD [Staff Physician] - 3-5 Days (Dr. Winchester is a roof mechanic. Please follow-up with him for further evaluation) Time of Disposition: 17:25
--- NOTE | 2020-04-13 14:20 | Cat Scan Report ---
CT abdomen pelvis wo con INDICATION: Diffuse abdominal pain greatest in RLQ, n/v/d. TECHNIQUE: All CT scans at this location are performed using the following dose modulation technique: Automated exposure control. CONTRAST: None. COMPARISON: None available. CT ABDOMEN: The parenchymal organs are unremarkable in appearance. Negative for abdominal mass, fluid or inflammation. The bowel is not dilated or thickened. Status post previous cholecystectomy. No biliary dilatation. CT PELVIS: Negative for distal ureteral stone, pelvic fluid collection or inflammation. The appendix is normal. Status post previous hysterectomy. IMPRESSION: Negative for obstruction or localized inflammation. Signer Name: Osiel Christopher MD Signed: 04/13/2020 2:16 PM Workstation Name: [id number]
[2020-04-13] MEDS ORDERED: diphenhydrAMINE 50 MG/ML VIAL ONE (14:39)
[2020-04-13] MEDS ORDERED: diphenhydrAMINE 50 MG/ML VIAL IM PRN (14:41)
[2020-04-13 14:59] LABS: Basophils # (Auto) 0.1 K/mm3 (0.0-0.1); Basophils % (Auto) 1.2 % (0.0-1.8); Eosinophils % (Auto) 0.4 % (0.0-4.3); Hematocrit 34.8 % (30.3-42.9); Hemoglobin 11.2 gm/dl (10.1-14.3); Lymphocytes # (Auto) 2.7 K/mm3 (1.2-5.4); Lymphocytes % (Auto) 44.7 % (13.4-35.0); Mean Corpuscular HGB Conc 32 % (30-34); Mean Corpuscular Volume 85 fl (79-97); Monocytes # (Auto) 0.5 K/mm3 (0.0-0.8); Monocytes % (Auto) 8.9 % (0.0-7.3); Platelet Count 233 K/mm3 (140-440); Red Blood Count 4.08 M/mm3 (3.65-5.03); Red Cell Distribution Width 16.1 % (13.2-15.2)
[2020-04-13 15:06] LABS: Alanine Aminotransferase 13 units/L (7-56); Albumin 4.5 g/dL (3.9-5); BUN/Creatinine Ratio 18; Blood Urea Nitrogen 14 mg/dL (7-17); Calcium 9.8 mg/dL (8.4-10.2); Hemolysis Index 2
[2020-04-13 17:09] LABS: Bacteria,Urine 1+ /HPF (Negative); Bilirubin,Urine NEG (Negative); Blood,Urine SM (Negative); Color,Urine Straw (Yellow); Mucus,Urine FEW /HPF; Protein,Urine <15 mg/dL mg/dL (Negative); Urobilinogen,Urine < 2.0 mg/dL (<2.0)
== END 2020-04-13 18:12 | disposition home or self-care (01) ==
LOC: ED 10:31
DX: R19.7 Diarrhea, unspecified (principal); R10.9 Unspecified abdominal pain; R50.9 Fever, unspecified; I10 Essential (primary) hypertension; K21.9 Gastro-esophageal reflux disease without esophagitis; J45.909 Unspecified asthma, uncomplicated; Z90.49 Acquired absence of other specified parts of digestive tract; Z90.710 Acquired absence of both cervix and uterus; Z98.890 Other specified postprocedural states; Z79.899 Other long term (current) drug therapy; Z88.8 Allergy status to other drugs, medicaments and biological substances
CPT/HCPCS: 36415; 74176; 80053; 81001; 83690; 85025; 96372; 99284; J1170; J1200; J1642; J2405

== ENCOUNTER 2020-04-24 20:45 | Emergency (ER) | payer MEDICAID ==
[2020-04-24 23:24] VITALS: BP 117/73
[2020-04-25] MEDS ORDERED: HYDROmorphone 2 MG/1 ML INJ IV ONE ×2 (03:01→04:42)
[2020-04-25] MEDS ORDERED: ONDANSETRON 4 MG/2 ML INJ IV ONE (03:01)
[2020-04-25] MEDS ORDERED: diphenhydrAMINE 50 MG/ML VIAL IV ONE ×3 (03:01→05:50)
[2020-04-25] MEDS ORDERED: SODIUM CHLORIDE 0.9% 1000 ML 1,000 ML IV ONE (03:01)
--- NOTE | 2020-04-25 03:06 | Emergency Department Report ---
ED Abdominal Pain HPI - General Chief Complaint: Abdominal Pain Stated Complaint: SWOLLEN HANDS PUI?: No Time Seen by Provider: 04/25/20 02:46 Source: patient Mode of arrival: Ambulatory Limitations: No Limitations - History of Present Illness Initial Comments: Patient is a 44-year-old female that presents emergency room with complaints of abdominal pain, nausea and vomiting. Patient states her pain is been well for 2 days. Patient states her primary care sent her here because they think there is a flareup of her pancreatitis. Patient states he has had pancreatitis multiple times. Patient states the pancreatitis is due to a surgical issue from years ago. Patient states she has had multiple abdominal surgeries. Patient states the pain is a 10 out of 10. Patient states the pain is better with rest and worse with movement. Patient states that she is allergic to multiple medications but all of her allergies are covered by Benadryl. Patient denies blood in her vomitus. Patient denies diarrhea. Patient denies fever and chills. Patient denies cough. Patient denies recent travel. Patient denies recent international travel. Patient denies exposure to the novel coronavirus. Patient denies sick contacts. Patient denies fever and chills. Patient denies cough. Patient denies diarrhea. Patient denies coming in contact with anybody with symptoms of the novel coronavirus. MD Complaint: abdominal pain -: Sudden Location: diffuse Radiation: none Migration to: no migration Severity: severe Severity scale (0 -10): 10 Quality: sharp Consistency: constant Improves With: rest Worsens With: movement Associated Symptoms: nausea, vomiting - Related Data LMP (females 10-50): unknown Previous Rx's Medication Instructions Recorded Last Taken Type Ondansetron (Nf) [Zofran TAB] 8 mg PO Q8HR PRN #14 tablet 11/14/18 Unknown Rx Pantoprazole [Protonix TAB] 40 mg PO QDAY #14 tablet 11/14/18 Unknown Rx Promethazine [Phenergan TAB] 25 mg PO Q6HR PRN #20 tab 12/11/18 Unknown Rx Dicyclomine [Bentyl] 20 mg PO QID #10 tablet 03/11/19 Unknown Rx Promethazine HCl [Phenergan SUPPOS] 25 mg RC BID #10 supp.rect 03/11/19 Unknown Rx Promethazine [Phenergan] 25 mg PO Q6HR PRN #20 tab 03/11/19 Unknown Rx Gabapentin 100 mg PO Q8HR #12 capsule 08/15/19 Unknown Rx traMADoL [Ultram 50 MG tab] 50 mg PO Q6HR PRN #12 tablet 08/15/19 Unknown Rx traMADoL [Ultram 50 MG tab] 50 mg PO Q6HR PRN #10 tablet 10/27/19 Unknown Rx HYDROcodone/APAP 7.5-325 [[place] 1 each PO Q6HR PRN #15 tablet 12/27/19 Unknown Rx 7.5/325] Ondansetron [Zofran Odt] 4 mg PO Q4HR PRN #20 tab.rapdis 12/27/19 Unknown Rx Promethazine [Phenergan TAB] 25 mg PO Q6HR PRN #20 tab 12/27/19 Unknown Rx metroNIDAZOLE [Flagyl] 500 mg PO Q12HR #14 tab 01/10/20 Unknown Rx Promethazine [Phenergan] 25 mg PO Q6HR PRN #20 tab 02/26/20 Unknown Rx traMADoL [Ultram] 50 mg PO Q6HR PRN #10 tablet 02/26/20 Unknown Rx Diphenoxylate/Atropine [Lomotil] 1 - 2 tab PO QID PRN #20 tablet 04/13/20 Unknown Rx HYDROcodone/APAP 5-325 [[place] 1 - 2 each PO Q6HR PRN #10 tablet 04/13/20 Unknown Rx 5/325] Promethazine [Phenergan] 25 mg PO Q6HR PRN #20 tab 04/13/20 Unknown Rx Promethazine [Phenergan SUPPOS] 25 mg IA Q6HR PRN #15 supp.rect 04/25/20 Unknown Rx oxyCODONE /ACETAMINOPHEN [Percocet 1 tab PO Q6H PRN #10 tablet 04/25/20 Unknown Rx 5/325 mg] Allergies Allergy/AdvReac Type Severity Reaction Status Date / Time codeine Allergy Itching Verified 09/13/18 07:52 fentanyl Allergy Hives Verified 09/13/18 07:52 ketorolac tromethamine Allergy Itching Verified 09/13/18 07:52 [From Toradol] metoclopramide HCl Allergy Hives Verified 09/13/18 07:52 [From Reglan] morphine Allergy Hives Verified 09/13/18 07:52 ondansetron HCl [From Zofran] Allergy Hives Verified 12/24/16 08:17 prochlorperazine edisylate Allergy Hives Verified 09/13/18 07:52 [From Compazine] prochlorperazine maleate Allergy Hives Verified 09/13/18 07:52 [From Compazine] ED Review of Systems ROS: Stated complaint: SWOLLEN HANDS Other details as noted in HPI Constitutional: denies: chills, fever Eyes: denies: eye pain, eye discharge, vision change ENT: denies: ear pain, throat pain Respiratory: denies: cough, shortness of breath, wheezing Cardiovascular: denies: chest pain, palpitations Endocrine: no symptoms reported Gastrointestinal: abdominal pain, nausea, vomiting. denies: diarrhea Genitourinary: denies: urgency, dysuria, discharge Musculoskeletal: denies: back pain, joint swelling, arthralgia Skin: denies: rash, lesions Neurological: denies: headache, weakness, paresthesias Psychiatric: denies: anxiety, depression Hematological/Lymphatic: denies: easy bleeding, easy bruising ED Past Medical Hx - Past Medical History Previous Medical History?: Yes Hx Hypertension: Yes Hx GERD: Yes (Gastroparesis) Hx Renal Disease: Yes (renal failure- now in remission) Hx Kidney Stones: Yes Hx Asthma: Yes Additional medical history: ovarian/lung ca, gastroparesis, IBS, chronic pancreatitis, anemia. (LYMPHOMA LUNG), pyelonephritis, herpes, Small bowel obstruction,. PORT RIGHT CHEST, pancreatits - Surgical History Past Surgical History?: Yes Hx Open Heart Surgery: No Hx Pacemaker: No Hx Internal Defibrillator: No Hx Cholecystectomy: Yes Additional Surgical History: fistula repair, lower bowel dissection, stents (in/out), hysterectomy. Power port - Family History Family history: no significant - Social History Smoking Status: Current Every Day Smoker Substance Use Type: None - Medications Home Medications: Home Medications Medication Instructions Recorded Confirmed Last Taken Type Ondansetron (Nf) [Zofran TAB] 8 mg PO Q8HR PRN #14 tablet 11/14/18 Unknown Rx Pantoprazole [Protonix TAB] 40 mg PO QDAY #14 tablet 11/14/18 Unknown Rx Promethazine [Phenergan TAB] 25 mg PO Q6HR PRN #20 tab 12/11/18 Unknown Rx Dicyclomine [Bentyl] 20 mg PO QID #10 tablet 03/11/19 Unknown Rx Promethazine HCl [Phenergan SUPPOS] 25 mg RC BID #10 supp.rect 03/11/19 Unknown Rx Promethazine [Phenergan] 25 mg PO Q6HR PRN #20 tab 03/11/19 Unknown Rx Gabapentin 100 mg PO Q8HR #12 capsule 08/15/19 Unknown Rx traMADoL [Ultram 50 MG tab] 50 mg PO Q6HR PRN #12 tablet 08/15/19 Unknown Rx traMADoL [Ultram 50 MG tab] 50 mg PO Q6HR PRN #10 tablet 10/27/19 Unknown Rx HYDROcodone/APAP 7.5-325 [[place] 1 each PO Q6HR PRN #15 tablet 12/27/19 Unknown Rx 7.5/325] Ondansetron [Zofran Odt] 4 mg PO Q4HR PRN #20 tab.rapdis 12/27/19 Unknown Rx Promethazine [Phenergan TAB] 25 mg PO Q6HR PRN #20 tab 12/27/19 Unknown Rx metroNIDAZOLE [Flagyl] 500 mg PO Q12HR #14 tab 01/10/20 Unknown Rx Promethazine [Phenergan] 25 mg PO Q6HR PRN #20 tab 02/26/20 Unknown Rx traMADoL [Ultram] 50 mg PO Q6HR PRN #10 tablet 02/26/20 Unknown Rx Diphenoxylate/Atropine [Lomotil] 1 - 2 tab PO QID PRN #20 tablet 04/13/20 Unknown Rx HYDROcodone/APAP 5-325 [[place] 1 - 2 each PO Q6HR PRN #10 tablet 04/13/20 Unknown Rx 5/325] Promethazine [Phenergan] 25 mg PO Q6HR PRN #20 tab 04/13/20 Unknown Rx Promethazine [Phenergan SUPPOS] 25 mg IA Q6HR PRN #15 supp.rect 04/25/20 Unknown Rx oxyCODONE /ACETAMINOPHEN [Percocet 1 tab PO Q6H PRN #10 tablet 04/25/20 Unknown Rx 5/325 mg] ED Physical Exam - General Limitations: No Limitations General appearance: alert, in no apparent distress - Head Head exam: Present: atraumatic, normocephalic - Eye Eye exam: Present: normal appearance - ENT ENT exam: Present: mucous membranes moist - Neck Neck exam: Present: normal inspection - Respiratory Respiratory exam: Present: normal lung sounds bilaterally. Absent: respiratory distress - Cardiovascular Cardiovascular Exam: Present: regular rate, normal rhythm. Absent: systolic murmur, diastolic murmur, rubs, gallop - GI/Abdominal GI/Abdominal exam: Present: soft, tenderness, normal bowel sounds - Extremities Exam Extremities exam: Present: normal inspection - Back Exam Back exam: Present: normal inspection - Neurological Exam Neurological exam: Present: alert, oriented X3 - Psychiatric Psychiatric exam: Present: normal affect, normal mood - Skin Skin exam: Present: warm, dry, intact, normal color. Absent: rash ED Course Vital Signs 04/24/20 23:17 Temperature 98.6 F Pulse Rate 77 Respiratory 18 Rate Blood Pressure 117/73 O2 Sat by Pulse 99 Oximetry - Reevaluation(s) Reevaluation #1: I discussed all results with patient. I discussed plan of care with patient. Patient states she would prefer to go home. Patient states she does not want to be admitted. Patient states her pain has improved. Patient will be given another dose of pain meds and Benadryl. Patient states she like to try p.o. challenge and try to go home. I discussed all results and clinical findings with patient. I discussed plan of care with patient. Patient agrees with plan of care. Patient is stable for discharge. Patient will be discharged home. Patient given discharge instructions. Patient voiced understanding of discharge instructions. 04/25/20 05:49 ED Medical Decision Making - Lab Data Result diagrams: 04/25/20 03:43 04/25/20 03:43 - Radiology Data Radiology results: report reviewed CT scan of the abdomen report reviewed. CT of the abdomen shows no acute findings. - Medical Decision Making Patient is a 44-year-old female that presents emergency room with complaints of abdominal pain. Patient also had complaints of nausea and vomiting. Patient has a complex abdominal history. Patient has history of chronic pancreatitis and gastroparesis. Patient was given Zofran and Dilaudid in the ER as well as Benadryl. Patient's responded well to treatment. Patient also given fluids. Patient has pain and nausea essentially resolved prior to discharge. I offered admission to the patient due to her level of pain amount of pain medication. Patient did not want to be admitted. Patient refused admission. Patient responded well to treatment. Patient's had a CT scan which was negative for acute findings. Patient had labs which were negative except for elevated lipase. Patient stable for discharge. Patient discharged home. Patient given prescriptions. - Differential Diagnosis Abdominal pain, pancreatitis, gastroparesis, nausea, vomiting, gastroenteri Critical care attestation.: If time is entered above; I have spent that time in minutes in the direct care of this critically ill patient, excluding procedure time. ED Disposition Clinical Impression: Gastroparesis Abdominal pain Qualifiers: Abdominal location: generalized Qualified Code(s): R10.84 - Generalized abdominal pain Nausea & vomiting Qualifiers: Vomiting type: unspecified Vomiting Intractability: non-intractable Qualified Code(s): R11.2 - Nausea with vomiting, unspecified Disposition: TO HOME OR SELFCARE Is pt being admited?: No Does the pt Need Aspirin: No Condition: Stable Instructions: Abdominal Pain (ED), Nausea and Vomiting, Adult, Nausea and Vomiting, Adult, [id number], Abdominal Pain, Adult, Gastroparesis Additional Instructions: Patient to follow-up with primary care in 2 to 3 days. Patient to follow-up with gastroenterology in 2 to 3 days. Patient to rest. Patient to increase water. Patient to take Tylenol or ibuprofen as needed for pain. Patient to take meds as directed. Patient to return to the ER if condition worsens, changes or new symptoms arise. Prescriptions: oxyCODONE /ACETAMINOPHEN [Percocet 5/325 mg] 1 tab PO Q6H PRN #10 tablet PRN Reason: Pain, Moderate (4-6) Promethazine [Phenergan SUPPOS] 25 mg IA Q6HR PRN #15 supp.rect PRN Reason: Nausea And Vomiting Referrals: PRIMARY CARE, [Primary Care Provider] - 2-3 Days Time of Disposition: 05:54
[2020-04-25 04:22] LABS: Bacteria,Urine 1+ /HPF (Negative); Bilirubin,Urine NEG (Negative); Blood,Urine NEG (Negative); Color,Urine Straw (Yellow); Mucus,Urine FEW /HPF; Protein,Urine <15 mg/dL mg/dL (Negative); Urobilinogen,Urine < 2.0 mg/dL (<2.0)
[2020-04-25 04:25] LABS: Hematocrit 33.5 % (30.3-42.9); Hemoglobin 10.3 gm/dl (10.1-14.3); Mean Corpuscular HGB Conc 31 % (30-34); Mean Corpuscular Volume 88 fl (79-97); Red Blood Count 3.82 M/mm3 (3.65-5.03); Red Cell Distribution Width 15.9 % (13.2-15.2)
[2020-04-25 04:29] LABS: Alanine Aminotransferase 20 units/L (7-56); Albumin 4.2 g/dL (3.9-5); Blood Urea Nitrogen 13 mg/dL (7-17); Hemolysis Index 20
[2020-04-25 04:30] LABS: Platelet Count 155 K/mm3 (140-440)
[2020-04-25 04:33] LABS: BUN/Creatinine Ratio 19
--- NOTE | 2020-04-25 05:33 | Cat Scan Report ---
CT ABDOMEN AND PELVIS WITH CONTRAST HISTORY: abd pain. Acute generalized abdominal pain COMPARISON: CT abdomen/pelvis from 04/13/2020 TECHNIQUE: CT images of the abdomen and pelvis were obtained following administration of intravenous contrast. All CT scans at this location are performed using CT dose reduction for [place] by means of automated exposure control. CONTRAST: 100 ml of intravenous contrast administered. FINDINGS: Lungs/bones: Lung bases are clear. No acute osseous abnormality. Abdomen/pelvis: The liver, spleen, pancreas, adrenals, kidneys, and proximal GI tract appear unremar kable. The gallbladder is surgically absent. Urinary bladder is mostly collapsed. Uterus is surgically absent. No pelvic free fluid. No acute colo lia abnormality identified. The appendix and terminal ileum appear normal. IMPRESSION: 1. Unremarkable examination. Signer Name: Demian Garcia MD Signed: 04/25/2020 5:29 AM Workstation Name: [id number]
[2020-04-25] MEDS ORDERED: HYDROmorphone 1 MG/1 ML INJ IV ONE (05:50)
[2020-04-25 06:07] LABS: Anisocytosis 1+; Platelet Estimate Consistent w Auto; Total Cells Counted 100
== END 2020-04-25 06:41 | disposition home or self-care (01) ==
LOC: ED 20:45
DX: K31.84 Gastroparesis (principal); I10 Essential (primary) hypertension; J45.909 Unspecified asthma, uncomplicated; Z86.2 Personal history of diseases of the blood and blood-forming organs and certain disorders involving the immune mechanism; F17.200 Nicotine dependence, unspecified, uncomplicated; Z90.710 Acquired absence of both cervix and uterus
CPT/HCPCS: 36415; 74177; 80053; 81001; 83690; 85007; 85025; 96361; 96374; 96375; 96376; 99284; J1170; J1200; J2405; J7030; Q9967

== ENCOUNTER 2020-05-11 20:14 | Emergency (ER) | payer MEDICAID ==
--- NOTE | 2020-05-11 20:50 | Event Note ---
ED Screening Note Date of service: 05/11/20 Time: 20:32 ED Screening Note: 44-year-old -[place] female presents to the emergency room for acute on chronic abdominal pain with a history of gallbladder removal and a perforated bowel. This initial assessment/diagnostic orders/clinical plan/treatment(s) is/are subject to change based on patients health status, clinical progression and re- assessment by fellow clinical providers in the ED. Further treatment and workup at subsequent clinical providers discretion. Patient/guardian urged not to elope from the ED as their condition may be serious if not clinically assessed and managed. Initial orders include:
[2020-05-11 21:58] LABS: Bilirubin,Urine NEG (Negative); Blood,Urine NEG (Negative); Color,Urine Yellow (Yellow); Mucus,Urine FEW /HPF; Protein,Urine <15 mg/dL mg/dL (Negative)
[2020-05-11 22:23] LABS: HCG Qualitative,Urine Positive (Negative)
--- NOTE | 2020-05-11 22:54 | Emergency Department Report ---
ED Abdominal Pain HPI - General Chief Complaint: Abdominal Pain Stated Complaint: NAUSEA/EMESIS/ABD PAIN Time Seen by Provider: 05/11/20 21:46 Source: patient Mode of arrival: Ambulatory Limitations: No Limitations - History of Present Illness Initial Comments: 44-year-old female with history of ovarian cancer. Approximately 10 years ago, patient underwent complete hysterectomy which then resulted in the development of multiple complications. She has also underwent cholecystectomy, bowel resection, repair of rectovaginal fistula. Patient has suffered from colitis, chronic pancreatitis, and small bowel obstructions. Today, patient presents with abdominal pain, worse in the right lower quadrant also reports some associated fever, nausea and vomiting. She also reports seeing small amount of blood in her stool as well. MD Complaint: abdominal pain -: days(s) (2) Location: RLQ Radiation: none Migration to: no migration Severity: moderate Quality: cramping Consistency: constant Improves With: nothing Worsens With: nothing Associated Symptoms: nausea, vomiting, diarrhea, fever - Related Data Previous Rx's Medication Instructions Recorded Last Taken Type Ondansetron (Nf) [Zofran TAB] 8 mg PO Q8HR PRN #14 tablet 11/14/18 Unknown Rx Pantoprazole [Protonix TAB] 40 mg PO QDAY #14 tablet 11/14/18 Unknown Rx Promethazine [Phenergan TAB] 25 mg PO Q6HR PRN #20 tab 12/11/18 Unknown Rx Dicyclomine [Bentyl] 20 mg PO QID #10 tablet 03/11/19 Unknown Rx Promethazine HCl [Phenergan SUPPOS] 25 mg RC BID #10 supp.rect 03/11/19 Unknown Rx Promethazine [Phenergan] 25 mg PO Q6HR PRN #20 tab 03/11/19 Unknown Rx Gabapentin 100 mg PO Q8HR #12 capsule 08/15/19 Unknown Rx traMADoL [Ultram 50 MG tab] 50 mg PO Q6HR PRN #12 tablet 08/15/19 Unknown Rx traMADoL [Ultram 50 MG tab] 50 mg PO Q6HR PRN #10 tablet 10/27/19 Unknown Rx HYDROcodone/APAP 7.5-325 [[place] 1 each PO Q6HR PRN #15 tablet 12/27/19 Unknown Rx 7.5/325] Ondansetron [Zofran Odt] 4 mg PO Q4HR PRN #20 tab.rapdis 12/27/19 Unknown Rx Promethazine [Phenergan TAB] 25 mg PO Q6HR PRN #20 tab 12/27/19 Unknown Rx metroNIDAZOLE [Flagyl] 500 mg PO Q12HR #14 tab 01/10/20 Unknown Rx Promethazine [Phenergan] 25 mg PO Q6HR PRN #20 tab 02/26/20 Unknown Rx traMADoL [Ultram] 50 mg PO Q6HR PRN #10 tablet 02/26/20 Unknown Rx Diphenoxylate/Atropine [Lomotil] 1 - 2 tab PO QID PRN #20 tablet 04/13/20 Unknown Rx HYDROcodone/APAP 5-325 [[place] 1 - 2 each PO Q6HR PRN #10 tablet 04/13/20 Unknown Rx 5/325] Promethazine [Phenergan] 25 mg PO Q6HR PRN #20 tab 04/13/20 Unknown Rx Promethazine [Phenergan SUPPOS] 25 mg NC Q6HR PRN #15 supp.rect 04/25/20 Unknown Rx oxyCODONE /ACETAMINOPHEN [Percocet 1 tab PO Q6H PRN #10 tablet 04/25/20 Unknown Rx 5/325 mg] Dicyclomine [Bentyl] 20 mg PO QID PRN #20 tablet 05/12/20 Unknown Rx Promethazine [Phenergan TAB] 25 mg PO Q6HR PRN #20 tab 05/12/20 Unknown Rx Allergies Allergy/AdvReac Type Severity Reaction Status Date / Time codeine Allergy Itching Verified 09/13/18 07:52 fentanyl Allergy Hives Verified 09/13/18 07:52 ketorolac tromethamine Allergy Itching Verified 09/13/18 07:52 [From Toradol] metoclopramide HCl Allergy Hives Verified 09/13/18 07:52 [From Reglan] morphine Allergy Hives Verified 09/13/18 07:52 ondansetron HCl [From Zofran] Allergy Hives Verified 12/24/16 08:17 prochlorperazine edisylate Allergy Hives Verified 09/13/18 07:52 [From Compazine] prochlorperazine maleate Allergy Hives Verified 09/13/18 07:52 [From Compazine] ED Review of Systems ROS: Stated complaint: NAUSEA/EMESIS/ABD PAIN Other details as noted in HPI Comment: All other systems reviewed and negative Constitutional: fever Gastrointestinal: abdominal pain, nausea, vomiting, diarrhea ED Past Medical Hx - Past Medical History Previous Medical History?: Yes Hx Hypertension: Yes Hx GERD: Yes (Gastroparesis) Hx Renal Disease: Yes (renal failure- now in remission) Hx Kidney Stones: Yes Hx Asthma: Yes Additional medical history: ovarian/lung ca, gastroparesis, IBS, chronic pancreatitis, anemia. (LYMPHOMA LUNG), pyelonephritis, herpes, Small bowel obstruction,. PORT RIGHT CHEST - Surgical History Hx Open Heart Surgery: No Hx Pacemaker: No Hx Internal Defibrillator: No Hx Cholecystectomy: Yes Additional Surgical History: fistula repair, lower bowel dissection, stents (in/out), hysterectomy. Power port - Social History Smoking Status: Never Smoker Substance Use Type: None - Medications Home Medications: Home Medications Medication Instructions Recorded Confirmed Last Taken Type Ondansetron (Nf) [Zofran TAB] 8 mg PO Q8HR PRN #14 tablet 11/14/18 Unknown Rx Pantoprazole [Protonix TAB] 40 mg PO QDAY #14 tablet 11/14/18 Unknown Rx Promethazine [Phenergan TAB] 25 mg PO Q6HR PRN #20 tab 12/11/18 Unknown Rx Dicyclomine [Bentyl] 20 mg PO QID #10 tablet 03/11/19 Unknown Rx Promethazine HCl [Phenergan SUPPOS] 25 mg RC BID #10 supp.rect 03/11/19 Unknown Rx Promethazine [Phenergan] 25 mg PO Q6HR PRN #20 tab 03/11/19 Unknown Rx Gabapentin 100 mg PO Q8HR #12 capsule 08/15/19 Unknown Rx traMADoL [Ultram 50 MG tab] 50 mg PO Q6HR PRN #12 tablet 08/15/19 Unknown Rx traMADoL [Ultram 50 MG tab] 50 mg PO Q6HR PRN #10 tablet 10/27/19 Unknown Rx HYDROcodone/APAP 7.5-325 [[place] 1 each PO Q6HR PRN #15 tablet 12/27/19 Unknown Rx 7.5/325] Ondansetron [Zofran Odt] 4 mg PO Q4HR PRN #20 tab.rapdis 12/27/19 Unknown Rx Promethazine [Phenergan TAB] 25 mg PO Q6HR PRN #20 tab 12/27/19 Unknown Rx metroNIDAZOLE [Flagyl] 500 mg PO Q12HR #14 tab 01/10/20 Unknown Rx Promethazine [Phenergan] 25 mg PO Q6HR PRN #20 tab 02/26/20 Unknown Rx traMADoL [Ultram] 50 mg PO Q6HR PRN #10 tablet 02/26/20 Unknown Rx Diphenoxylate/Atropine [Lomotil] 1 - 2 tab PO QID PRN #20 tablet 04/13/20 Unknown Rx HYDROcodone/APAP 5-325 [[place] 1 - 2 each PO Q6HR PRN #10 tablet 04/13/20 Unknown Rx 5/325] Promethazine [Phenergan] 25 mg PO Q6HR PRN #20 tab 04/13/20 Unknown Rx Promethazine [Phenergan SUPPOS] 25 mg NC Q6HR PRN #15 supp.rect 04/25/20 Unknown Rx oxyCODONE /ACETAMINOPHEN [Percocet 1 tab PO Q6H PRN #10 tablet 04/25/20 Unknown Rx 5/325 mg] Dicyclomine [Bentyl] 20 mg PO QID PRN #20 tablet 05/12/20 Unknown Rx Promethazine [Phenergan TAB] 25 mg PO Q6HR PRN #20 tab 05/12/20 Unknown Rx ED Physical Exam - General Limitations: No Limitations General appearance: alert, in no apparent distress - Head Head exam: Present: atraumatic, normocephalic - Eye Eye exam: Present: normal appearance, EOMI - ENT ENT exam: Present: mucous membranes moist - Neck Neck exam: Present: normal inspection - Respiratory Respiratory exam: Present: normal lung sounds bilaterally. Absent: respiratory distress - Cardiovascular Cardiovascular Exam: Present: regular rate, normal rhythm - GI/Abdominal GI/Abdominal exam: Present: soft, tenderness (Diffuse tenderness, worse in right lower quadrant). Absent: distended - Extremities Exam Extremities exam: Present: normal inspection - Neurological Exam Neurological exam: Present: alert, oriented X3 - Psychiatric Psychiatric exam: Present: normal affect, normal mood - Skin Skin exam: Present: warm, dry, intact, normal color ED Course Vital Signs 05/11/20 20:32 Temperature 99.3 F Pulse Rate 89 Respiratory 18 Rate Blood Pressure 130/88 O2 Sat by Pulse 99 Oximetry - Reevaluation(s) Reevaluation #1: 05/12/20 00:46 Urine test was positive so serum quantitative hCG was sent off which is resulted at 9. Patient states she has had a positive test in the past despite having a total hysterectomy. Patient still consents to the CT scan. ED Medical Decision Making - Lab Data Result diagrams: 05/12/20 Unknown 05/11/20 23:47 Critical care attestation.: If time is entered above; I have spent that time in minutes in the direct care of this critically ill patient, excluding procedure time. ED Disposition Clinical Impression: Abdominal pain Disposition: DC-01 TO HOME OR SELFCARE Is pt being admited?: No Condition: Stable Instructions: Abdominal Pain, Adult, [id number], Abdominal Pain (ED) Prescriptions: Dicyclomine [Bentyl] 20 mg PO QID PRN #20 tablet PRN Reason: abdominal pain Promethazine [Phenergan TAB] 25 mg PO Q6HR PRN #20 tab PRN Reason: Nausea Referrals: PRIMARY CARE, [Primary Care Provider] - 3-5 Days Time of Disposition: :27
[2020-05-11] MEDS ORDERED: SODIUM CHLORIDE 0.9% 1000 ML 1,000 ML IV ONE (23:11)
[2020-05-11] MEDS ORDERED: diphenhydrAMINE 50 MG/ML VIAL IV ONE (23:11)
[2020-05-11] MEDS ORDERED: HYDROmorphone 1 MG/1 ML INJ IV ONE (23:12)
[2020-05-12 00:18] LABS: Basophils # (Auto) 0.1 K/mm3 (0.0-0.1); Eosinophils # (Auto) 0.1 K/mm3 (0.0-0.4); Eosinophils % (Auto) 0.8 % (0.0-4.3); Hematocrit 32.8 % (30.3-42.9); Hemoglobin 10.6 gm/dl (10.1-14.3); Lymphocytes # (Auto) 3.5 K/mm3 (1.2-5.4); Lymphocytes % (Auto) 47.7 % (13.4-35.0); Mean Corpuscular HGB Conc 32 % (30-34); Mean Corpuscular Volume 87 fl (79-97); Monocytes # (Auto) 0.6 K/mm3 (0.0-0.8); Monocytes % (Auto) 8.2 % (0.0-7.3); Platelet Count 203 K/mm3 (140-440); Red Blood Count 3.79 M/mm3 (3.65-5.03); Red Cell Distribution Width 15.1 % (13.2-15.2)
[2020-05-12 00:34] LABS: Alanine Aminotransferase 14 units/L (7-56); Albumin 4.5 g/dL (3.9-5); BUN/Creatinine Ratio 18; Blood Urea Nitrogen 14 mg/dL (7-17); Calcium 9.4 mg/dL (8.4-10.2); Hemolysis Index 4
--- NOTE | 2020-05-12 01:19 | Cat Scan Report ---
CT abdomen pelvis w con INDICATION: Patient complains of R.L.Q. abdominal pain. COMPARISON: 04/25/2020 TECHNIQUE: Abdominal and pelvic CT exam performed. All CT scans at this location are performed using CT dose reduction for ALARA by means of automated exposure control. FINDINGS: CT ABDOMEN and PELVIS: Lung Bases: No significant abnormality. Liver: No significant abnormality. Biliary: Gallbladder is surgically absent. Spleen: No significant abnormality. Pancreas: No significant abnormality. Adrenals: No significant abnormality. Kidneys: Small hypoattenuating lesions most likely simple cysts. Lymphatics: No lymphadenopathy. Vasculature: No significant abnormality. Bowel: No significant abnormality. Pelvis: Uterus is surgically absent. Osseous Structures: No aggressive osseous lesion. Additional Findings: None IMPRESSION: 1. No significant abnormality of the abdomen or pelvis. Signer Name: Fuentes Boyce MD Signed: 05/12/2020 1:15 AM Workstation Name: [id number]
[2020-05-12] MEDS ORDERED: HYDROmorphone 1 MG/1 ML INJ IV ONE (01:21)
[2020-05-12] MEDS ORDERED: diphenhydrAMINE 50 MG/ML VIAL IV ONE (01:21)
[2020-05-12] MEDS ORDERED: ONDANSETRON 4 MG/2 ML INJ IV ONE (01:21)
[2020-05-12 03:02] VITALS: BP 156/96
== END 2020-05-12 03:18 | disposition home or self-care (01) ==
LOC: ED 20:14
DX: R10.31 Right lower quadrant pain (principal); R50.9 Fever, unspecified; R11.2 Nausea with vomiting, unspecified; I10 Essential (primary) hypertension; K21.9 Gastro-esophageal reflux disease without esophagitis; J45.909 Unspecified asthma, uncomplicated; Z98.890 Other specified postprocedural states; Z79.899 Other long term (current) drug therapy; Z88.8 Allergy status to other drugs, medicaments and biological substances
CPT/HCPCS: 36415; 74177; 80053; 81001; 81025; 83690; 84702; 85025; 96361; 96374; 96375; 96376; 99284; J1170; J1200; J1642; J2405; J7030; Q9967

== ENCOUNTER 2020-05-21 18:46 | Emergency (ER) | payer MEDICAID ==
[2020-05-21] MEDS ORDERED: HYDROmorphone 2 MG/1 ML INJ IV ONE (23:21)
[2020-05-21] MEDS ORDERED: SODIUM CHLORIDE 0.9% 1000 ML 1,000 ML IV ONE (23:22)
--- NOTE | 2020-05-21 23:24 | Emergency Department Report ---
ED Abdominal Pain HPI - General Chief Complaint: Abdominal Pain Stated Complaint: NAUSEA/VOMITTING ABD PAIN PUI?: No Time Seen by Provider: 05/21/20 23:15 Source: patient Mode of arrival: Ambulatory Limitations: No Limitations - History of Present Illness Initial Comments: Patient is a 44-year-old female that presents emergency room with right lower quadrant pain and tenderness. Patient states her pain started this morning. Patient states her pain is a 10 out of 10. Patient states she has history of gastroparesis. Patient states she had some alcohol this weekend. Patient states she also has a history of pancreatitis. Patient states her abdominal pain is better with rest and worse with movement and palpation. Patient also complains of nausea and vomiting. Patient states the pain is nonradiating. Patient states she has some blood in her stool. Patient states her stool was dark. Patient denies recent travel. Patient denies recent international travel. Patient denies exposure to the novel coronavirus. Patient denies sick contacts. Patient denies fever and chills. Patient denies cough. Patient denies loss of smell. Patient denies coming in contact with anybody with symptoms of the novel coronavirus. MD Complaint: abdominal pain -: Sudden Location: RLQ Radiation: none Migration to: no migration Severity: severe Severity scale (0 -10): 10 Quality: stabbing Consistency: constant Improves With: rest Worsens With: vomiting, movement Associated Symptoms: nausea, vomiting, diarrhea, hematochezia. denies: fever, chills, constipation, dysuria, hematemesis - Related Data LMP (females 10-50): unknown Previous Rx's Medication Instructions Recorded Last Taken Type Ondansetron (Nf) [Zofran TAB] 8 mg PO Q8HR PRN #14 tablet 11/14/18 Unknown Rx Pantoprazole [Protonix TAB] 40 mg PO QDAY #14 tablet 11/14/18 Unknown Rx Promethazine [Phenergan TAB] 25 mg PO Q6HR PRN #20 tab 12/11/18 Unknown Rx Dicyclomine [Bentyl] 20 mg PO QID #10 tablet 03/11/19 Unknown Rx Promethazine HCl [Phenergan SUPPOS] 25 mg RC BID #10 supp.rect 03/11/19 Unknown Rx Promethazine [Phenergan] 25 mg PO Q6HR PRN #20 tab 03/11/19 Unknown Rx Gabapentin 100 mg PO Q8HR #12 capsule 08/15/19 Unknown Rx traMADoL [Ultram 50 MG tab] 50 mg PO Q6HR PRN #12 tablet 08/15/19 Unknown Rx traMADoL [Ultram 50 MG tab] 50 mg PO Q6HR PRN #10 tablet 10/27/19 Unknown Rx HYDROcodone/APAP 7.5-325 [[place] 1 each PO Q6HR PRN #15 tablet 12/27/19 Unknown Rx 7.5/325] Ondansetron [Zofran Odt] 4 mg PO Q4HR PRN #20 tab.rapdis 12/27/19 Unknown Rx Promethazine [Phenergan TAB] 25 mg PO Q6HR PRN #20 tab 12/27/19 Unknown Rx metroNIDAZOLE [Flagyl] 500 mg PO Q12HR #14 tab 01/10/20 Unknown Rx Promethazine [Phenergan] 25 mg PO Q6HR PRN #20 tab 02/26/20 Unknown Rx traMADoL [Ultram] 50 mg PO Q6HR PRN #10 tablet 02/26/20 Unknown Rx Diphenoxylate/Atropine [Lomotil] 1 - 2 tab PO QID PRN #20 tablet 04/13/20 Unknown Rx HYDROcodone/APAP 5-325 [[place] 1 - 2 each PO Q6HR PRN #10 tablet 04/13/20 Unknown Rx 5/325] Promethazine [Phenergan] 25 mg PO Q6HR PRN #20 tab 04/13/20 Unknown Rx Promethazine [Phenergan SUPPOS] 25 mg DC Q6HR PRN #15 supp.rect 04/25/20 Unknown Rx Dicyclomine [Bentyl] 20 mg PO QID PRN #20 tablet 05/12/20 Unknown Rx Promethazine [Phenergan] 25 mg PO Q6HR PRN #20 tab 05/22/20 Unknown Rx oxyCODONE /ACETAMINOPHEN [Percocet 1 tab PO Q6H PRN #12 tablet 05/22/20 Unknown Rx 5/325 mg] Allergies Allergy/AdvReac Type Severity Reaction Status Date / Time codeine Allergy Itching Verified 09/13/18 07:52 fentanyl Allergy Hives Verified 09/13/18 07:52 ketorolac tromethamine Allergy Itching Verified 09/13/18 07:52 [From Toradol] metoclopramide HCl Allergy Hives Verified 09/13/18 07:52 [From Reglan] morphine Allergy Hives Verified 09/13/18 07:52 ondansetron HCl [From Zofran] Allergy Hives Verified 12/24/16 08:17 prochlorperazine edisylate Allergy Hives Verified 09/13/18 07:52 [From Compazine] prochlorperazine maleate Allergy Hives Verified 09/13/18 07:52 [From Compazine] ED Review of Systems ROS: Stated complaint: NAUSEA/VOMITTING ABD PAIN Other details as noted in HPI Constitutional: denies: chills, fever Eyes: denies: eye pain, eye discharge, vision change ENT: denies: ear pain, throat pain Respiratory: denies: cough, shortness of breath, wheezing Cardiovascular: denies: chest pain, palpitations Endocrine: no symptoms reported Gastrointestinal: abdominal pain, nausea, vomiting, diarrhea, hematochezia. den ies: constipation, hematemesis, melena Genitourinary: denies: urgency, dysuria, discharge Musculoskeletal: denies: back pain, joint swelling, arthralgia Skin: denies: rash, lesions Neurological: denies: headache, weakness, paresthesias Psychiatric: denies: anxiety, depression Hematological/Lymphatic: denies: easy bleeding, easy bruising ED Past Medical Hx - Past Medical History Previous Medical History?: Yes Hx Hypertension: Yes Hx GERD: Yes (Gastroparesis) Hx Renal Disease: Yes (renal failure- now in remission) Hx Kidney Stones: Yes Hx Asthma: Yes Additional medical history: ovarian/lung ca, gastroparesis, IBS, chronic pancre atitis, anemia. (LYMPHOMA LUNG), pyelonephritis, herpes, Small bowel obstruction,. PORT RIGHT CHEST - Surgical History Past Surgical History?: Yes Hx Open Heart Surgery: No Hx Pacemaker: No Hx Internal Defibrillator: No Hx Cholecystectomy: Yes Additional Surgical History: fistula repair, lower bowel dissection, stents (in/out), hysterectomy. Power port - Family History Family history: no significant - Social History Smoking Status: Never Smoker Substance Use Type: Alcohol, Marijuana - Medications Home Medications: Home Medications Medication Instructions Recorded Confirmed Last Taken Type Ondansetron (Nf) [Zofran TAB] 8 mg PO Q8HR PRN #14 tablet 11/14/18 Unknown Rx Pantoprazole [Protonix TAB] 40 mg PO QDAY #14 tablet 11/14/18 Unknown Rx Promethazine [Phenergan TAB] 25 mg PO Q6HR PRN #20 tab 12/11/18 Unknown Rx Dicyclomine [Bentyl] 20 mg PO QID #10 tablet 03/11/19 Unknown Rx Promethazine HCl [Phenergan SUPPOS] 25 mg RC BID #10 supp.rect 03/11/19 Unknown Rx Promethazine [Phenergan] 25 mg PO Q6HR PRN #20 tab 03/11/19 Unknown Rx Gabapentin 100 mg PO Q8HR #12 capsule 08/15/19 Unknown Rx traMADoL [Ultram 50 MG tab] 50 mg PO Q6HR PRN #12 tablet 08/15/19 Unknown Rx traMADoL [Ultram 50 MG tab] 50 mg PO Q6HR PRN #10 tablet 10/27/19 Unknown Rx HYDROcodone/APAP 7.5-325 [[place] 1 each PO Q6HR PRN #15 tablet 12/27/19 Unknown Rx 7.5/325] Ondansetron [Zofran Odt] 4 mg PO Q4HR PRN #20 tab.rapdis 12/27/19 Unknown Rx Promethazine [Phenergan TAB] 25 mg PO Q6HR PRN #20 tab 12/27/19 Unknown Rx metroNIDAZOLE [Flagyl] 500 mg PO Q12HR #14 tab 01/10/20 Unknown Rx Promethazine [Phenergan] 25 mg PO Q6HR PRN #20 tab 02/26/20 Unknown Rx traMADoL [Ultram] 50 mg PO Q6HR PRN #10 tablet 02/26/20 Unknown Rx Diphenoxylate/Atropine [Lomotil] 1 - 2 tab PO QID PRN #20 tablet 04/13/20 Unknown Rx HYDROcodone/APAP 5-325 [[place] 1 - 2 each PO Q6HR PRN #10 tablet 04/13/20 Unknown Rx 5/325] Promethazine [Phenergan] 25 mg PO Q6HR PRN #20 tab 04/13/20 Unknown Rx Promethazine [Phenergan SUPPOS] 25 mg DC Q6HR PRN #15 supp.rect 04/25/20 Unknown Rx Dicyclomine [Bentyl] 20 mg PO QID PRN #20 tablet 05/12/20 Unknown Rx Promethazine [Phenergan] 25 mg PO Q6HR PRN #20 tab 05/22/20 Unknown Rx oxyCODONE /ACETAMINOPHEN [Percocet 1 tab PO Q6H PRN #12 tablet 05/22/20 Unknown Rx 5/325 mg] ED Physical Exam - General Limitations: No Limitations General appearance: alert, in no apparent distress - Head Head exam: Present: atraumatic, normocephalic - Eye Eye exam: Present: normal appearance - ENT ENT exam: Present: mucous membranes moist - Neck Neck exam: Present: normal inspection - Respiratory Respiratory exam: Present: normal lung sounds bilaterally. Absent: respiratory distress - Cardiovascular Cardiovascular Exam: Present: regular rate, normal rhythm. Absent: systolic murmur, diastolic murmur, rubs, gallop - GI/Abdominal GI/Abdominal exam: Present: soft, tenderness, normal bowel sounds - Rectal Rectal exam: Present: normal inspection, normal rectal tone, heme (-) stool - Extremities Exam Extremities exam: Present: normal inspection - Back Exam Back exam: Present: normal inspection - Neurological Exam Neurological exam: Present: alert, oriented X3 - Psychiatric Psychiatric exam: Present: normal affect, normal mood - Skin Skin exam: Present: warm, dry, intact, normal color. Absent: rash ED Course Vital Signs 05/21/20 05/21/20 05/21/20 19:29 22:49 23:25 Temperature 98.2 F Pulse Rate 74 Respiratory 16 16 Rate Blood Pressure 140/97 Blood Pressure [Right] O2 Sat by Pulse 98 94 Oximetry 05/21/20 05/21/20 05/21/20 23:30 23:45 23:46 Temperature 98.4 F Pulse Rate 73 Respiratory 16 Rate Blood Pressure 145/92 145/92 Blood Pressure 144/95 [Right] O2 Sat by Pulse 98 99 99 Oximetry 05/22/20 05/22/20 05/22/20 00:00 00:16 00:50 Temperature Pulse Rate Respiratory Rate Blood Pressure 139/100 139/100 139/100 Blood Pressure [Right] O2 Sat by Pulse 99 100 86 Oximetry 05/22/20 01:00 Temperature Pulse Rate Respiratory Rate Blood Pressure 139/100 Blood Pressure [Right] O2 Sat by Pulse 84 Oximetry - Reevaluation(s) Reevaluation #1: Patient is still in severe pain. Patient is severely tender. Patient will be given another Dilaudid. 05/22/20 01:01 Reevaluation #2: Patient states her pain is better. 05/22/20 02:05 Reevaluation #3: Patient states the pain is returning. I did a rectal exam with nurse Kat in the room as computer education teacher. The guaiac was negative. 05/22/20 03:35 Reevaluation #4: I discussed all results and clinical findings with patient. I discussed plan of care with patient. Patient agrees with plan of care. Patient is stable for discharge. Patient will be discharged home. Patient given discharge instructions. Patient voiced understanding of discharge instructions. 05/22/20 03:44 ED Medical Decision Making - Lab Data Result diagrams: 05/21/20 22:48 05/21/20 22:48 - Radiology Data Radiology results: report reviewed CT abdomen pelvis w con INDICATION / CLINICAL INFORMATION: Patient complains abdominal pain with N/V/D.. TECHNIQUE: Axial CT imaging of abdomen and pelvis was obtained with IV contrast. Coronal and sagittal reformatted imaging obtained and reviewed. All CT scans at this location are performed using CT dose reduction for MWHS by means of automated exposure control. COMPARISON: The most recent CT abdomen/pelvis 05/12/2020 FINDINGS: CT abdomen with contrast demonstrates normal appearance of the liver, spleen, pancreas, kidneys, and adrenal glands. Prior cholecystectomy. No biliary dilatation. Abdominal aorta is unremarkable. CT pelvis with contrast demonstrates normal appearance of the appendix. No pelvic mass, free fluid, or focal inflammatory changes noted. There is a large stool burden throughout the colon. There are several small bowel loops that are fluid-filled with air-fluid levels, but are not abnormally dilated. I suspect this is related to infectious enteritis. The remainder of the GI tract is grossly normal. Visualized lung bases are clear. No significant osseous abnormality IMPRESSION: 1. Slightly abnormal appearance of the small bowel. The appearance is most suggestive of infectious enteritis. Please correlate with clinical symptoms and presentation. 2. Moderate stool burden throughout the colon. 3. No other significant finding. - Medical Decision Making Patient is a 44-year-old female that presents emergency room with complaints of right lower quadrant abdominal pain. Patient has history of gastroparesis, chronic pain, chronic pancreatiti. Patient states she has been drinking alcohol for the first time last weekend. Patient states her pain is severe and worsening. Patient has a high tolerance to pain meds due to her chronic conditions. Patient given a total of 4 mg in the ER. Prior to discharge the patient was given Percocet. Patient had labs done which did not show anemia and were essentially unremarkable. Patient had a mild elevation of her lipase. Patient has ovarian cancer and the ovarian cancer tumor creates hCG that is the reason the patient has a positive hCG even though the patient has a hysterectomy. Patient had a CT scan of the abdomen which shows gastroenteritis and no other acute findings, no pancreatitis. Patient had a rectal exam which was negative for occult blood. Patient's stool was normal color. The rectal exam was done with nurse computer education teacher, Kat. Patient responded well to treatment and was stable for discharge. Patient discharged home with pain meds and nausea medications. Patient given discharge instructions. - Differential Diagnosis Gastroenteritis, pancreatitis, gastric paresis, abdominal pain, rectal blee Critical care attestation.: If time is entered above; I have spent that time in minutes in the direct care of this critically ill patient, excluding procedure time. ED Disposition Clinical Impression: Gastroparesis, Gastroenteritis, Blood in stool, Acute gastroenteritis Abdominal pain Qualifiers: Abdominal location: right lower quadrant Qualified Code(s): R10.31 - Right lower quadrant pain Nausea & vomiting Qualifiers: Vomiting type: unspecified Vomiting Intractability: non-intractable Qualified Code(s): R11.2 - Nausea with vomiting, unspecified Diarrhea Qualifiers: Diarrhea type: unspecified type Qualified Code(s): R19.7 - Diarrhea, unspecified Disposition: DC-01 TO HOME OR SELFCARE Is pt being admited?: No Does the pt Need Aspirin: No Condition: Stable Instructions: Viral Gastroenteritis, Adult, Abdominal Pain, Adult, [id number], Abdominal Pain (ED) Additional Instructions: Patient to follow-up with primary care in 2 to 3 days. Patient to follow-up with GI and pain management in 2 to 3 days. Patient to rest. Patient to increase water. Patient to eat a brat diet. Patient to take Tylenol or ibuprofen as needed for pain. Patient to take meds as directed. Patient to return to the ER if condition worsens, changes or new symptoms arise. Prescriptions: oxyCODONE /ACETAMINOPHEN [Percocet 5/325 mg] 1 tab PO Q6H PRN #12 tablet PRN Reason: Pain, Moderate (4-6) Promethazine [Phenergan] 25 mg PO Q6HR PRN #20 tab PRN Reason: Nausea Referrals: PRIMARY CARE, [Primary Care Provider] - 2-3 Days Time of Disposition: 03:47
[2020-05-21 23:35] LABS: Basophils % (Auto) 0.6 % (0.0-1.8); Eosinophils # (Auto) 0.1 K/mm3 (0.0-0.4); Eosinophils % (Auto) 1.1 % (0.0-4.3); Hematocrit 38.5 % (30.3-42.9); Hemoglobin 12.2 gm/dl (10.1-14.3); Lymphocytes # (Auto) 3.5 K/mm3 (1.2-5.4); Lymphocytes % (Auto) 51.9 % (13.4-35.0); Mean Corpuscular HGB Conc 32 % (30-34); Mean Corpuscular Volume 88 fl (79-97); Monocytes # (Auto) 0.5 K/mm3 (0.0-0.8); Monocytes % (Auto) 7.1 % (0.0-7.3); Platelet Count 239 K/mm3 (140-440); Red Blood Count 4.37 M/mm3 (3.65-5.03); Red Cell Distribution Width 14.5 % (13.2-15.2)
[2020-05-21 23:39] LABS: Alanine Aminotransferase 11 units/L (7-56); Albumin 5.1 g/dL (3.9-5); Blood Urea Nitrogen 9 mg/dL (7-17); Calcium 9.7 mg/dL (8.4-10.2); Hemolysis Index 16
[2020-05-21 23:40] LABS: BUN/Creatinine Ratio 15
[2020-05-22] MEDS ORDERED: diphenhydrAMINE 50 MG/ML VIAL IV ONE ×2 (00:08→02:08)
--- NOTE | 2020-05-22 01:07 | Cat Scan Report ---
CT abdomen pelvis w con INDICATION / CLINICAL INFORMATION: Patient complains abdominal pain with N/V/D.. TECHNIQUE: Axial CT imaging of abdomen and pelvis was obtained with IV contrast. Coronal and sagittal reformatte d imaging obtained and reviewed. All CT scans at this location are performed using CT dose reduction for ALARA by means of automated exposure control. COMPARISON: The most recent CT abdomen/pelvis 05/12/2020 FINDINGS: CT abdomen with contrast demonstrates normal appearance of the liver, spleen, pancreas, kidneys, and adrenal glands. Prior cholecystectomy. No biliary dilatation. Abdominal aorta is unremarkable. CT pelvis with contrast demonstrates normal appearance of the appendix. No pelvic mass, free fluid, o r focal inflammatory changes noted. There is a large stool burden throughout the colon. There are several small bowel loops that are flui d-filled with air-fluid levels, but are not abnormally dilated. I suspect this is related to infectio us enteritis. The remainder of the GI tract is grossly normal. Visualized lung bases are clear. No significant osseous abnormality IMPRESSION: 1. Slightly abnormal appearance of the small bowel. The appearance is most suggestive of infectious e nteritis. Please correlate with clinical symptoms and presentation. 2. Moderate stool burden throughout the colon. 3. No other significant finding. Signer Name: Dorita Villalba MD Signed: 05/22/2020 1:03 AM Workstation Name: [id number]
[2020-05-22] MEDS ORDERED: HYDROmorphone 2 MG/1 ML INJ IV ONE (01:12)
[2020-05-22] MEDS ORDERED: oxyCODONE /ACETAMINOPHEN 5-325MG TAB PO ONE (04:14)
[2020-05-22 05:52] VITALS: BP 142/103
== END 2020-05-22 04:20 | disposition home or self-care (01) ==
LOC: ED 18:46
DX: K52.9 Noninfective gastroenteritis and colitis, unspecified (principal); K31.84 Gastroparesis; K92.1 Melena; R11.2 Nausea with vomiting, unspecified; R10.31 Right lower quadrant pain; I10 Essential (primary) hypertension; J45.909 Unspecified asthma, uncomplicated; F12.10 Cannabis abuse, uncomplicated; Z79.899 Other long term (current) drug therapy; Z88.8 Allergy status to other drugs, medicaments and biological substances
CPT/HCPCS: 36415; 74177; 80053; 83690; 84702; 84703; 85025; 96361; 96374; 96375; 96376; 99284; J1170; J1200; J7030; Q9967

== ENCOUNTER 2020-06-09 22:06 | Emergency (ER) | payer MEDICAID ==
--- NOTE | 2020-06-09 22:14 | Event Note ---
ED Screening Note Date of service: 06/09/20 Time: 22:12 ED Screening Note: Pt is a 44 y/o aan hx of IBS and recurrent SBO who presents for abd pain 5/10 x 3 days Last BM 2 days ago. states she was seen at [facility] but left AMA , not able to tolerate po intake at this time. she denies fever or chills This initial assessment/diagnostic orders/clinical plan/treatment(s) is/are subject to change based on patients health status, clinical progression and re- assessment by fellow clinical providers in the ED. Further treatment and workup at subsequent clinical providers discretion. Patient/guardian urged not to elope from the ED as their condition may be serious if not clinically assessed and managed. Initial orders include: CMP, CBC, UA, HCG,
[2020-06-09] MEDS ORDERED: SODIUM CHLORIDE 0.9% 1000 ML 1,000 ML IV ONE (22:47)
[2020-06-09] MEDS ORDERED: PROMETHAZINE 25 MG RECT SUPP PR ONE (22:47)
[2020-06-09] MEDS ORDERED: HYDROmorphone 1 MG/1 ML INJ IV ONE (22:47)
[2020-06-09] MEDS ORDERED: diphenhydrAMINE 50 MG/ML VIAL IV ONE (22:54)
--- NOTE | 2020-06-09 22:57 | Emergency Department Report ---
HPI - General Chief Complaint: Abdominal Pain Time Seen by Provider: 06/09/20 22:36 - HPI HPI: Room 43 The patient is a 44-year-old female present with a chief complaint of abdominal pain and bowel obstruction. The patient states she developed a distended abdomen nausea vomiting and obstipation 5 days ago. The patient states she was diagnosed with a small bowel obstruction at [facility] but left AMA secondary to refusing the NG tube and having a panic attack. Patient states she went home and felt slightly improved however after eating her symptoms return. Patient continues complain of nausea vomiting. Patient denies history of fever ED Past Medical Hx - Past Medical History Previous Medical History?: Yes Hx Hypertension: Yes Hx GERD: Yes (Gastroparesis) Hx Renal Disease: Yes (renal failure- now in remission) Hx Kidney Stones: Yes Hx Asthma: Yes Additional medical history: ovarian/lung ca, gastroparesis, IBS, chronic pancreatitis, anemia. (LYMPHOMA LUNG), pyelonephritis, herpes, Small bowel obstruction,. PORT RIGHT CHEST - Surgical History Hx Cholecystectomy: Yes Additional Surgical History: fistula repair, lower bowel dissection, stents (in/ out), hysterectomy 2007. Power port - Family History Family history: no significant - Social History Smoking Status: Never Smoker Substance Use Type: Marijuana - Medications Home Medications: Home Medications Medication Instructions Recorded Confirmed Last Taken Type Ondansetron (Nf) [Zofran TAB] 8 mg PO Q8HR PRN #14 tablet 11/14/18 Unknown Rx Pantoprazole [Protonix TAB] 40 mg PO QDAY #14 tablet 11/14/18 Unknown Rx Promethazine [Phenergan TAB] 25 mg PO Q6HR PRN #20 tab 12/11/18 Unknown Rx Dicyclomine [Bentyl] 20 mg PO QID #10 tablet 03/11/19 Unknown Rx Promethazine HCl [Phenergan SUPPOS] 25 mg RC BID #10 supp.rect 03/11/19 Unknown Rx Promethazine [Phenergan] 25 mg PO Q6HR PRN #20 tab 03/11/19 Unknown Rx Gabapentin 100 mg PO Q8HR #12 capsule 08/15/19 Unknown Rx traMADoL [Ultram 50 MG tab] 50 mg PO Q6HR PRN #12 tablet 08/15/19 Unknown Rx traMADoL [Ultram 50 MG tab] 50 mg PO Q6HR PRN #10 tablet 10/27/19 Unknown Rx HYDROcodone/APAP 7.5-325 [[place] 1 each PO Q6HR PRN #15 tablet 12/27/19 Unknown Rx 7.5/325] Ondansetron [Zofran Odt] 4 mg PO Q4HR PRN #20 tab.rapdis 12/27/19 Unknown Rx Promethazine [Phenergan TAB] 25 mg PO Q6HR PRN #20 tab 12/27/19 Unknown Rx metroNIDAZOLE [Flagyl] 500 mg PO Q12HR #14 tab 01/10/20 Unknown Rx Promethazine [Phenergan] 25 mg PO Q6HR PRN #20 tab 02/26/20 Unknown Rx traMADoL [Ultram] 50 mg PO Q6HR PRN #10 tablet 02/26/20 Unknown Rx Diphenoxylate/Atropine [Lomotil] 1 - 2 tab PO QID PRN #20 tablet 04/13/20 Unknown Rx HYDROcodone/APAP 5-325 [[place] 1 - 2 each PO Q6HR PRN #10 tablet 04/13/20 Unknown Rx 5/325] Promethazine [Phenergan] 25 mg PO Q6HR PRN #20 tab 04/13/20 Unknown Rx Promethazine [Phenergan SUPPOS] 25 mg NC Q6HR PRN #15 supp.rect 04/25/20 Unknown Rx Dicyclomine [Bentyl] 20 mg PO QID PRN #20 tablet 05/12/20 Unknown Rx Promethazine [Phenergan] 25 mg PO Q6HR PRN #20 tab 05/22/20 Unknown Rx oxyCODONE /ACETAMINOPHEN [Percocet 1 tab PO Q6H PRN #12 tablet 05/22/20 Unknown Rx 5/325 mg] HYDROcodone/APAP 5-325 [[place] 1 - 2 each PO Q6HR PRN #5 tablet 06/10/20 Unknown Rx 5/325] Promethazine [Phenergan] 25 mg PO Q6HR PRN #20 tab 06/10/20 Unknown Rx Promethazine [Phenergan] 25 mg NC Q6HR PRN #5 supp.rect 06/10/20 Unknown Rx Sulfamethoxazole/Trimethoprim 1 each PO BID #6 tablet 06/10/20 Unknown Rx [Bactrim DS TAB] ED Review of Systems ROS: Stated complaint: BOWEL OBSTRUCTION Other details as noted in HPI Constitutional: denies: fever Eyes: denies: eye pain ENT: denies: throat pain Respiratory: no symptoms reported Cardiovascular: denies: chest pain Endocrine: no symptoms reported Gastrointestinal: abdominal pain, nausea, vomiting, constipation Genitourinary: denies: dysuria Musculoskeletal: denies: back pain Neurological: denies: headache Physical Exam - Physical Exam Vital Signs: Vital Signs 06/09/20 22:13 Temperature 100.9 F H Pulse Rate 87 Respiratory 20 Rate Blood Pressure 127/95 [Left] O2 Sat by Pulse 98 Oximetry Physical Exam: GENERAL: The patient is well-developed well-nourished female lying on stretcher appearing to be in mild discomfort. [] HEENT: Normocephalic. Atraumatic. Extraocular motions are intact. Patient has moist mucous membranes. NECK: Supple. Trachea midline CHEST/LUNGS: Clear to auscultation. There is no respiratory distress noted. HEART/CARDIOVASCULAR: Regular. There is no tachycardia. There is no gallop rub or murmur. ABDOMEN: Abdomen is soft, with diffuse tenderness to palpation. Patient has normal bowel sounds. SKIN: There is no rash. There is no edema. There is no diaphoresis. NEURO: The patient is awake, alert, and oriented. The patient is cooperative. The patient has no focal neurologic deficits. The patient has normal speech MUSCULOSKELETAL: There is no evidence of acute injury. ED Course Vital Signs 06/09/20 22:13 Temperature 100.9 F H Pulse Rate 87 Respiratory 20 Rate Blood Pressure 127/95 [Left] O2 Sat by Pulse 98 Oximetry ED Medical Decision Making - Lab Data Result diagrams: 06/09/20 23:59 06/09/20 23:59 Laboratory Tests 06/09/20 06/09/20 06/09/20 23:59 23:59 23:59 WBC 6.4 RBC 3.48 L Hgb 10.0 L Hct 30.7 MCV 88 MCH 29 MCHC 33 RDW 14.0 Plt Count 264 Lymph % (Auto) 40.5 H [place] % (Auto) 6.9 Eos % (Auto) 0.8 Baso % (Auto) 0.9 Lymph # (Auto) 2.6 [place] # (Auto) 0.4 Eos # (Auto) 0.1 Baso # (Auto) 0.1 Seg Neutrophils % 50.9 Seg Neutrophils # 3.3 Sodium 139 Potassium 4.2 Chloride 105.3 Carbon Dioxide 25 Anion Gap 13 BUN 11 Creatinine 0.7 Estimated GFR > 60 BUN/Creatinine Ratio 16 Glucose 85 Calcium 8.7 Total Bilirubin < 0.20 AST 36 ALT 10 Alkaline Phosphatase 54 Total Protein 6.0 L Albumin 4.2 Albumin/Globulin Ratio 2.3 HCG, Qual Positive HCG, Quant 06/10/20 Unknown WBC RBC Hgb Hct MCV MCH MCHC RDW Plt Count Lymph % (Auto) [place] % (Auto) Eos % (Auto) Baso % (Auto) Lymph # (Auto) [place] # (Auto) Eos # (Auto) Baso # (Auto) Seg Neutrophils % Seg Neutrophils # Sodium Potassium Chloride Carbon Dioxide Anion Gap BUN Creatinine Estimated GFR BUN/Creatinine Ratio Glucose Calcium Total Bilirubin AST ALT Alkaline Phosphatase Total Protein Albumin Albumin/Globulin Ratio HCG, Qual HCG, Quant 9.82 H Laboratory Tests 06/09/20 06/09/20 06/09/20 Unknown 23:59 23:59 WBC 6.4 RBC 3.48 L Hgb 10.0 L Hct 30.7 MCV 88 MCH 29 MCHC 33 RDW 14.0 Plt Count 264 Lymph % (Auto) 40.5 H [place] % (Auto) 6.9 Eos % (Auto) 0.8 Baso % (Auto) 0.9 Lymph # (Auto) 2.6 [place] # (Auto) 0.4 Eos # (Auto) 0.1 Baso # (Auto) 0.1 Seg Neutrophils % 50.9 Seg Neutrophils # 3.3 Sodium 139 Potassium 4.2 Chloride 105.3 Carbon Dioxide 25 Anion Gap 13 BUN 11 Creatinine 0.7 Estimated GFR > 60 BUN/Creatinine Ratio 16 Glucose 85 Calcium 8.7 Total Bilirubin < 0.20 AST 36 ALT 10 Alkaline Phosphatase 54 Total Protein 6.0 L Albumin 4.2 Albumin/Globulin Ratio 2.3 HCG, Qual HCG, Quant Urine Color Straw Urine Turbidity Clear Urine pH 6.0 Ur Specific [place] 1.013 Urine Protein <15 mg/dl Urine Glucose (UA) Neg Urine Ketones Neg Urine Blood Neg Urine Nitrite Neg Urine Bilirubin Neg Urine Urobilinogen < 2.0 Ur Leukocyte Esterase Neg Urine WBC (Auto) 3.0 Urine RBC (Auto) 4.0 U Epithel Cells (Auto) < 1.0 Urine Mucus Few 06/09/20 06/10/20 23:59 Unknown WBC RBC Hgb Hct MCV MCH MCHC RDW Plt Count Lymph % (Auto) [place] % (Auto) Eos % (Auto) Baso % (Auto) Lymph # (Auto) [place] # (Auto) Eos # (Auto) Baso # (Auto) Seg Neutrophils % Seg Neutrophils # Sodium Potassium Chloride Carbon Dioxide Anion Gap BUN Creatinine Estimated GFR BUN/Creatinine Ratio Glucose Calcium Total Bilirubin AST ALT Alkaline Phosphatase Total Protein Albumin Albumin/Globulin Ratio HCG, Qual Positive HCG, Quant 9.82 H Urine Color Urine Turbidity Urine pH Ur Specific [place] Urine Protein Urine Glucose (UA) Urine Ketones Urine Blood Urine Nitrite Urine Bilirubin Urine Urobilinogen Ur Leukocyte Esterase Urine WBC (Auto) Urine RBC (Auto) U Epithel Cells (Auto) Urine Mucus - Radiology Data Radiology results: report reviewed (CT abdomen pelvis), image reviewed (CT abdomen pelvis) [facility] [address] [place] [address] Cat Scan Report Signed Patient: SONJA SERNA MR#: [id number] : 1975 Acct:[id number] Age/Sex: 44 / F ADM Date: 06/09/20 Loc: ED Attending Dr: Ordering Physician: JACKSON CAI MD Date of Service: 06/09/20 Procedure(s): CT abdomen pelvis w con Accession Number(s): [id number] cc: JACKSON CAI MD CT OF THE ABDOMEN AND PELVIS WITH INTRAVENOUS CONTRAST INDICATION / CLINICAL INFORMATION: "Bowel obstruction", Nausea and Vomiting with no BM x 4 days. Abdominal distention.. TECHNIQUE: The patient received 100 cc Omnipaque [address] scans at this location are performed using CT dose reduction for ALARA by means of automated exposure control. COMPARISON: 05/22/20. FINDINGS: ABDOMEN: The gallbladder is surgically absent. The liver, spleen, bile ducts, pancreas, adrenal glands and bowel demonstrate no significant abnormality. There is a moderate amount of stool in the colon. I see no evidence of bowel obstruction, wall thickening or free air. There are a couple of simple renal cysts bilaterally. No adenopathy is seen. The lung bases are clear. PELVIS: The distal ureters and urinary bladder are normal. The uterus and ovaries are not seen. There is no evidence of appendicitis or div erticulitis. No abnormal mass or fluid collection is pre sent. I do not identify a hernia. No acute osseous abnormality is seen. IMPRESSION: No acute abnormality is identified. I see no evidence of bowel obstruction or enteritis on the current exam. Signer Name: Chavez Sun MD Signed: 06/10/2020 1:17 AM Workstation Name: [id number] Transcribed By: RT Dictated By: Chavez Sun MD Electronically Authenticated By: Chavez Sun MD Signed Date/Time: 06/10/20116 DD/ 3 TD/TT: - Medical Decision Making CT abdomen pelvis unremarkable. Patient has chronically elevated serum hCG but has had a hysterectomy and bilateral oophorectomy. Will give referral to [facility]. Mucus found in the patient's urine and in the setting of fever 100.9 F I will start the patient on antibiotics empirically - Differential Diagnosis Small bowel obstruction, gastritis, colitis, Critical care attestation.: If time is entered above; I have spent that time in minutes in the direct care of this critically ill patient, excluding procedure time. ED Disposition Clinical Impression: Abdominal pain, Nausea & vomiting, Fever Disposition: TO HOME OR SELFCARE Is pt being admited?: No Does the pt Need Aspirin: No Condition: Stable Instructions: Abdominal Pain (ED), Abdominal Pain, Adult, [id number], Nausea and Vomiting, Adult, [id number] Additional Instructions: Return to the emergency department should you develop worsening symptoms, inability to tolerate food or liquids, high fever or any other concerns Prescriptions: Sulfamethoxazole/Trimethoprim [Bactrim DS TAB] 1 each PO BID #6 tablet HYDROcodone/APAP 5-325 [[place] 5/325] 1 - 2 each PO Q6HR PRN #5 tablet PRN Reason: Pain Promethazine [Phenergan] 25 mg PO Q6HR PRN #20 tab PRN Reason: Nausea Promethazine [Phenergan] 25 mg NC Q6HR PRN #5 supp.rect PRN Reason: Vomiting Referrals: PRIMARY CARE, [Primary Care Provider] - 3-5 Days EFRAÍN HIGGINBOTHAM MD [Staff Physician] - 3-5 Days Time of Disposition: 02:55
[2020-06-10 00:22] LABS: Basophils # (Auto) 0.1 K/mm3 (0.0-0.1); Basophils % (Auto) 0.9 % (0.0-1.8); Eosinophils # (Auto) 0.1 K/mm3 (0.0-0.4); Eosinophils % (Auto) 0.8 % (0.0-4.3); Hematocrit 30.7 % (30.3-42.9); Lymphocytes # (Auto) 2.6 K/mm3 (1.2-5.4); Lymphocytes % (Auto) 40.5 % (13.4-35.0); Mean Corpuscular HGB Conc 33 % (30-34); Mean Corpuscular Volume 88 fl (79-97); Monocytes # (Auto) 0.4 K/mm3 (0.0-0.8); Monocytes % (Auto) 6.9 % (0.0-7.3); Platelet Count 264 K/mm3 (140-440); Red Blood Count 3.48 M/mm3 (3.65-5.03)
[2020-06-10 00:35] LABS: Alanine Aminotransferase 10 units/L (7-56); Albumin 4.2 g/dL (3.9-5); BUN/Creatinine Ratio 16; Blood Urea Nitrogen 11 mg/dL (7-17); Calcium 8.7 mg/dL (8.4-10.2); Hemolysis Index 6
--- NOTE | 2020-06-10 01:22 | Cat Scan Report ---
CT OF THE ABDOMEN AND PELVIS WITH INTRAVENOUS CONTRAST INDICATION / CLINICAL INFORMATION: "Bowel obstruction", Nausea and Vomiting with no BM x 4 days. Abdominal distention.. TECHNIQUE: The patient received 100 cc Omnipaque [address] scans at this location are performed using CT dose reduction for ALARA by means of automated exposure control. COMPARISON: 05/22/20. FINDINGS: ABDOMEN: The gallbladder is surgically absent. The liver, spleen, bile ducts, pancreas, adrenal gland s and bowel demonstrate no significant abnormality. There is a moderate amount of stool in the colon. I see no evidence of bowel obstruction, wall thickening or free air. There are a couple of simple re nal cysts bilaterally. No adenopathy is seen. The lung bases are clear. PELVIS: The distal ureters and urinary bladder are normal. The uterus and ovaries are not seen. There is no evidence of appendicitis or diverticulitis. No abnormal mass or fluid collection is present. I do not identify a hernia. No acute osseous abnormality is seen. IMPRESSION: No acute abnormality is identified. I see no evidence of bowel obstruction or enteritis o n the current exam. Signer Name: Chavez Sun MD Signed: 06/10/2020 1:17 AM Workstation Name: [id number]
[2020-06-10] MEDS ORDERED: HYDROmorphone 1 MG/1 ML INJ IV ONE (01:25)
[2020-06-10 01:51] LABS: Bilirubin,Urine NEG (Negative); Blood,Urine NEG (Negative); Color,Urine Straw (Yellow); Mucus,Urine FEW /HPF; Protein,Urine <15 mg/dL mg/dL (Negative); Urobilinogen,Urine < 2.0 mg/dL (<2.0)
[2020-06-10 03:51] VITALS: BP 138/80
== END 2020-06-10 03:51 | disposition home or self-care (01) ==
LOC: ED 22:06
DX: R50.9 Fever, unspecified (principal); R11.2 Nausea with vomiting, unspecified; R10.9 Unspecified abdominal pain; I10 Essential (primary) hypertension; K21.9 Gastro-esophageal reflux disease without esophagitis; F12.10 Cannabis abuse, uncomplicated; J45.909 Unspecified asthma, uncomplicated; Z90.49 Acquired absence of other specified parts of digestive tract; Z79.899 Other long term (current) drug therapy; Z98.890 Other specified postprocedural states; Z88.8 Allergy status to other drugs, medicaments and biological substances
CPT/HCPCS: 36415; 74177; 80053; 81001; 84702; 84703; 85025; 96361; 96374; 96375; 96376; 99284; J1170; J1200; J1642; J7030; Q9967

== ENCOUNTER 2020-06-25 18:11 | Emergency (ER) | payer MEDICAID ==
--- NOTE | 2020-06-25 19:04 | Event Note ---
ED Screening Note ED Screening Note: Patient is a 44-year-old female presents emergency room with complaints of possible kidney stones She has associated right flank pain She was evaluated in the ED on 06/09/[address] abdomen pelvis at that time which showed no acute abnormality and no signs of stones She reports that she has dysuria and occasional nausea, vomiting, diarrhea which is chronic per patient due to chronic pancreatitis and IBS She states that she has a GI doctor Dr. 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 06/16/2020 1 06/16/2020 HYDROCODONE-ACETAMIN 5-325 MG 12.0 3 CH DHRUV [id number] [facility] ([id number]) 0 20.0 MME [place] 06/10/2020 1 06/10/2020 HYDROCODONE-ACETAMIN 5-325 MG 5.0 2 JU ALI [id number] [facility] ([id number]) 0 12.5 [place]ME [place] 05/22/2020 1 05/22/2020 OXYCODONE-ACETAMINOPHEN 5-325 12.0 4 GE ROSITA [id number] [facility] ([id number]) 0 22.5 [place]ME [place] 04/25/2020 1 04/25/2020 OXYCODONE-ACETAMINOPHEN 5-325 10.0 4 GE ROSITA [id number] [facility] ([id number]) 0 18.75 [place] 04/16/2020 1 04/16/2020 HYDROCODONE-ACETAMIN 5-325 MG 10.0 4 JA ELL [id number] [facility] ([id number]) 0 12.5 [place] 04/04/2020 1 04/04/2020 TRAMADOL HCL 50 MG TABLET 10.0 3 CH DHRUV [id number] [facility] ([id number]) 0 16.67 [place] 03/19/2020 1 03/19/2020 TRAMADOL HCL 50 MG TABLET 15.0 5 JA ELL [id number] [facility] ([id number]) 0 15.0 [place] 03/09/2020 1 03/09/2020 TRAMADOL HCL 50 MG TABLET 10.0 2 KE ALIE [id number] [facility] ([id number]) 0 25.0 [place] 02/27/2020 1 02/26/2020 TRAMADOL HCL 50 MG TABLET 10.0 5 JU ALI [id number] [facility] ([id number]) 0 10.0 [place] 02/05/2020 1 02/05/2020 HYDROCODONE-ACETAMIN 5-325 MG 12.0 3 MA MED [id number] [facility] ([id number]) 0 20.0 [place] 01/20/2020 1 01/20/2020 HYDROCODONE-ACETAMIN 7.5-325 10.0 3 JA BAR [id number] [facility] ([id number]) 0 25.0 [place] 01/07/2020 2 01/07/2020 HYDROCODONE-ACETAMIN 5-325 MG 18.0 3 KE COL [id number] [facility] ([id number]) 0 30.0 [place] 12/27/2019 1 12/27/2019 HYDROCODONE-ACETAMIN 7.5-325 15.0 3 RO HIL [id number] [facility] ([id number]) 0 37.5 [place] 12/11/2019 1 12/11/2019 ACETAMINOPHEN-COD #3 TABLET 12.0 4 FA DIAZ [id number] [facility] ([id number]) 0 13.5 [place] 10/27/2019 1 10/27/2019 TRAMADOL HCL 50 MG TABLET 10.0 2 VE RABIA [id number] [facility] ([id number]) 0 25.0 [place] 10/21/2019 1 10/21/2019 TRAMADOL HCL 50 MG TABLET 12.0 3 AR ISK [id number] [facility] ([id number]) 0 20.0 [place] 09/20/2019 1 09/20/2019 TRAMADOL HCL 50 MG TABLET 12.0 4 KE ALIE [id number] [facility] ([id number]) 0 15.0 [place] 08/15/2019 1 08/15/2019 TRAMADOL HCL 50 MG TABLET 12.0 3 JA HOL [id number] [facility] ([id number]) 0 20.0 MME [place] This initial assessment/diagnostic orders/clinical plan/treatment(s) is/are subject to change based on patients health status, clinical progression and re- assessment by fellow clinical providers in the ED. Further treatment and workup at subsequent clinical providers discretion. Patient/guardian urged not to elope from the ED as their condition may be serious if not clinically assessed and managed. Initial orders include: labs, UA ordered US due to several recent CT scans and concern for radiation
--- NOTE | 2020-06-25 20:21 | Ultrasound Report ---
US renal BILAT INDICATION / CLINICAL INFORMATION: right flank pain, hx of stones. COMPARISON: None available. FINDINGS: The right kidney measures 10.3 cm and the left kidney measures 10.7 cm. Small cysts are seen in both kidneys. No definite hydronephrosis is identified. The bladder is distended. IMPRESSION: 1. Distended bladder 2. Small bilateral renal cysts Signer Name: Alvarado Ross MD FACNaomie Signed: 06/25/2020 8:16 PM Workstation Name: [id number]
[2020-06-25] MEDS ORDERED: PROMETHAZINE 25 MG TAB PO ONE (21:16)
[2020-06-25] MEDS ORDERED: HYDROmorphone 2 MG/1 ML INJ IV ONE ×2 (21:16→22:58)
--- NOTE | 2020-06-25 21:20 | Emergency Department Report ---
ED Abdominal Pain HPI - General Chief Complaint: Abdominal Pain Stated Complaint: KIDNEY STONE PUI?: No Time Seen by Provider: 06/25/20 18:50 Source: patient, RN notes reviewed, old records reviewed Mode of arrival: Ambulatory Limitations: No Limitations - History of Present Illness Initial Comments: Patient is a 44-year-old female that presents emergency room with complaints of left upper quadrant abdominal pain and right flank pain. Patient states that she was seen at an urgent care and they sent her here for evaluation. Patient states that the urgent care they checked her lipase it was 275. Patient states she has a history of chronic pancreatitis. Patient states the pain is a 10 out of 10. Patient dates the pain is worse with movement. Patient states that pain is better with rest. Patient states her pain is worsening. Patient states her pain started 4 days ago. Patient states she weighs long as she could before coming to the hospital. Patient denies recent travel. Patient denies recent international travel. Patient denies exposure to the novel coronavirus. Patient denies sick contacts. Patient denies fever and chills. Patient denies cough. Patient denies diarrhea. Patient denies coming in contact with anybody with symptoms of the novel coronavirus. Chart reviewed. Allergy list reviewed. MD Complaint: abdominal pain, flank pain Location: LUQ, R flank Radiation: none Migration to: no migration Severity: severe Severity scale (0 -10): 8 Quality: stabbing, sharp Consistency: constant Improves With: rest Worsens With: movement Associated Symptoms: nausea, vomiting. denies: diarrhea, fever, chills, constipation, dysuria, hematemesis, hematochezia, melena, hematuria, anorexia, syncope Treatments Prior to Arrival: other - Related Data Previous Rx's Medication Instructions Recorded Last Taken Type Ondansetron (Nf) [Zofran TAB] 8 mg PO Q8HR PRN #14 tablet 11/14/18 Unknown Rx Pantoprazole [Protonix TAB] 40 mg PO QDAY #14 tablet 11/14/18 Unknown Rx Promethazine [Phenergan TAB] 25 mg PO Q6HR PRN #20 tab 12/11/18 Unknown Rx Dicyclomine [Bentyl] 20 mg PO QID #10 tablet 03/11/19 Unknown Rx Promethazine HCl [Phenergan SUPPOS] 25 mg RC BID #10 supp.rect 03/11/19 Unknown Rx Gabapentin 100 mg PO Q8HR #12 capsule 08/15/19 Unknown Rx traMADoL [Ultram 50 MG tab] 50 mg PO Q6HR PRN #12 tablet 08/15/19 Unknown Rx traMADoL [Ultram 50 MG tab] 50 mg PO Q6HR PRN #10 tablet 10/27/19 Unknown Rx HYDROcodone/APAP 7.5-325 [[place] 1 each PO Q6HR PRN #15 tablet 12/27/19 Unknown Rx 7.5/325] Ondansetron [Zofran Odt] 4 mg PO Q4HR PRN #20 tab.rapdis 12/27/19 Unknown Rx Promethazine [Phenergan TAB] 25 mg PO Q6HR PRN #20 tab 12/27/19 Unknown Rx metroNIDAZOLE [Flagyl] 500 mg PO Q12HR #14 tab 01/10/20 Unknown Rx Promethazine [Phenergan] 25 mg PO Q6HR PRN #20 tab 02/26/20 Unknown Rx traMADoL [Ultram] 50 mg PO Q6HR PRN #10 tablet 02/26/20 Unknown Rx Diphenoxylate/Atropine [Lomotil] 1 - 2 tab PO QID PRN #20 tablet 04/13/20 Unknown Rx HYDROcodone/APAP 5-325 [[place] 1 - 2 each PO Q6HR PRN #10 tablet 04/13/20 Unknown Rx 5/325] Promethazine [Phenergan] 25 mg PO Q6HR PRN #20 tab 04/13/20 Unknown Rx Dicyclomine [Bentyl] 20 mg PO QID PRN #20 tablet 05/12/20 Unknown Rx Promethazine [Phenergan] 25 mg PO Q6HR PRN #20 tab 05/22/20 Unknown Rx HYDROcodone/APAP 5-325 [[place] 1 - 2 each PO Q6HR PRN #5 tablet 06/10/20 Unknown Rx 5/325] Promethazine [Phenergan] 25 mg PO Q6HR PRN #20 tab 06/10/20 Unknown Rx Promethazine [Phenergan] 25 mg MT Q6HR PRN #5 supp.rect 06/10/20 Unknown Rx Sulfamethoxazole/Trimethoprim 1 each PO BID #6 tablet 06/10/20 Unknown Rx [Bactrim DS TAB] Ciprofloxacin HCl 500 mg PO BID 10 Days #20 tablet 06/26/20 Unknown Rx Promethazine [Phenergan SUPPOS] 25 mg MT Q6HR PRN #15 supp.rect 06/26/20 Unknown Rx Promethazine [Phenergan] 25 mg PO Q6HR PRN #20 tab 06/26/20 Unknown Rx oxyCODONE /ACETAMINOPHEN [Percocet 1 tab PO Q6H PRN #12 tablet 06/26/20 Unknown Rx 5/325 mg] Allergies Allergy/AdvReac Type Severity Reaction Status Date / Time codeine Allergy Itching Verified 09/13/18 07:52 fentanyl Allergy Hives Verified 09/13/18 07:52 ketorolac tromethamine Allergy Itching Verified 09/13/18 07:52 [From Toradol] metoclopramide HCl Allergy Hives Verified 09/13/18 07:52 [From Reglan] morphine Allergy Hives Verified 09/13/18 07:52 ondansetron HCl [From Zofran] Allergy Hives Verified 12/24/16 08:17 prochlorperazine edisylate Allergy Hives Verified 09/13/18 07:52 [From Compazine] prochlorperazine maleate Allergy Hives Verified 09/13/18 07:52 [From Compazine] ED Review of Systems ROS: Stated complaint: KIDNEY STONE Other details as noted in HPI Constitutional: denies: chills, fever Eyes: denies: eye pain, eye discharge, vision change ENT: denies: ear pain, throat pain Respiratory: denies: cough, shortness of breath, wheezing Cardiovascular: denies: chest pain, palpitations Endocrine: no symptoms reported Gastrointestinal: as per HPI, abdominal pain, nausea, vomiting. denies: diarrhea Genitourinary: denies: urgency, dysuria, discharge Musculoskeletal: denies: back pain, joint swelling, arthralgia Skin: denies: rash, lesions Neurological: denies: headache, weakness, paresthesias Psychiatric: denies: anxiety, depression Hematological/Lymphatic: denies: easy bleeding, easy bruising ED Past Medical Hx - Past Medical History Previous Medical History?: Yes Hx Hypertension: Yes Hx GERD: Yes (Gastroparesis) Hx Renal Disease: Yes (renal failure- now in remission) Hx Kidney Stones: Yes Hx Asthma: Yes Additional medical history: ovarian/lung ca, gastroparesis, IBS, chronic pancreatitis, anemia. (LYMPHOMA LUNG), pyelonephritis, herpes, Small bowel obstruction,. PORT RIGHT CHEST - Surgical History Past Surgical History?: Yes Hx Open Heart Surgery: No Hx Pacemaker: No Hx Internal Defibrillator: No Hx Cholecystectomy: Yes Additional Surgical History: fistula repair, lower bowel dissection, stents (in/out), hysterectomy 2007. Power port - Family History Family history: no significant - Social History Smoking Status: Never Smoker Substance Use Type: Marijuana - Medications Home Medications: Home Medications Medication Instructions Recorded Confirmed Last Taken Type Ondansetron (Nf) [Zofran TAB] 8 mg PO Q8HR PRN #14 tablet 11/14/18 Unknown Rx Pantoprazole [Protonix TAB] 40 mg PO QDAY #14 tablet 11/14/18 Unknown Rx Promethazine [Phenergan TAB] 25 mg PO Q6HR PRN #20 tab 12/11/18 Unknown Rx Dicyclomine [Bentyl] 20 mg PO QID #10 tablet 03/11/19 Unknown Rx Promethazine HCl [Phenergan SUPPOS] 25 mg RC BID #10 supp.rect 03/11/19 Unknown Rx Gabapentin 100 mg PO Q8HR #12 capsule 08/15/19 Unknown Rx traMADoL [Ultram 50 MG tab] 50 mg PO Q6HR PRN #12 tablet 08/15/19 Unknown Rx traMADoL [Ultram 50 MG tab] 50 mg PO Q6HR PRN #10 tablet 10/27/19 Unknown Rx HYDROcodone/APAP 7.5-325 [[place] 1 each PO Q6HR PRN #15 tablet 12/27/19 Unknown Rx 7.5/325] Ondansetron [Zofran Odt] 4 mg PO Q4HR PRN #20 tab.rapdis 12/27/19 Unknown Rx Promethazine [Phenergan TAB] 25 mg PO Q6HR PRN #20 tab 12/27/19 Unknown Rx metroNIDAZOLE [Flagyl] 500 mg PO Q12HR #14 tab 01/10/20 Unknown Rx Promethazine [Phenergan] 25 mg PO Q6HR PRN #20 tab 02/26/20 Unknown Rx traMADoL [Ultram] 50 mg PO Q6HR PRN #10 tablet 02/26/20 Unknown Rx Diphenoxylate/Atropine [Lomotil] 1 - 2 tab PO QID PRN #20 tablet 04/13/20 Unknown Rx HYDROcodone/APAP 5-325 [[place] 1 - 2 each PO Q6HR PRN #10 tablet 04/13/20 Unknown Rx 5/325] Promethazine [Phenergan] 25 mg PO Q6HR PRN #20 tab 04/13/20 Unknown Rx Dicyclomine [Bentyl] 20 mg PO QID PRN #20 tablet 05/12/20 Unknown Rx Promethazine [Phenergan] 25 mg PO Q6HR PRN #20 tab 05/22/20 Unknown Rx HYDROcodone/APAP 5-325 [[place] 1 - 2 each PO Q6HR PRN #5 tablet 06/10/20 Unknown Rx 5/325] Promethazine [Phenergan] 25 mg PO Q6HR PRN #20 tab 06/10/20 Unknown Rx Promethazine [Phenergan] 25 mg MT Q6HR PRN #5 supp.rect 06/10/20 Unknown Rx Sulfamethoxazole/Trimethoprim 1 each PO BID #6 tablet 06/10/20 Unknown Rx [Bactrim DS TAB] Ciprofloxacin HCl 500 mg PO BID 10 Days #20 tablet 06/26/20 Unknown Rx Promethazine [Phenergan SUPPOS] 25 mg MT Q6HR PRN #15 supp.rect 06/26/20 Unk nown Rx Promethazine [Phenergan] 25 mg PO Q6HR PRN #20 tab 06/26/20 Unknown Rx oxyCODONE /ACETAMINOPHEN [Percocet 1 tab PO Q6H PRN #12 tablet 06/26/20 Unknown Rx 5/325 mg] ED Physical Exam - General Limitations: No Limitations General appearance: alert, in no apparent distress - Head Head exam: Present: atraumatic, normocephalic - Eye Eye exam: Present: normal appearance - ENT ENT exam: Present: mucous membranes moist - Neck Neck exam: Present: normal inspection - Respiratory Respiratory exam: Present: normal lung sounds bilaterally, other (Patient has a right chest wall port.). Absent: respiratory distress - Cardiovascular Cardiovascular Exam: Present: regular rate, normal rhythm. Absent: systolic murmur, diastolic murmur, rubs, gallop - GI/Abdominal GI/Abdominal exam: Present: soft, tenderness (Right flank tenderness and left upper quadrant tenderness.), normal bowel sounds - Extremities Exam Extremities exam: Present: normal inspection - Back Exam Back exam: Present: normal inspection - Neurological Exam Neurological exam: Present: alert, oriented X3 - Psychiatric Psychiatric exam: Present: normal affect, normal mood - Skin Skin exam: Present: warm, dry, intact, normal color. Absent: rash ED Course Vital Signs 06/25/20 06/25/20 06/26/20 18:49 21:16 00:28 Temperature 99.0 F Pulse Rate 95 H 88 Respiratory 20 16 16 Rate Blood Pressure 158/94 130/96 [Right] O2 Sat by Pulse 99 99 Oximetry - Reevaluation(s) Reevaluation #1: Nurse given an order to access port for blood and medications. Patient agrees to have port access. 06/25/20 21:21 Reevaluation #2: Patient states her pain is better. Patient states her nausea and vomiting has resolved. I discussed all results and clinical findings with patient. I discussed plan of care with patient. Patient agrees with plan of care. Patient is stable for discharge. Patient will be discharged home. Patient given discharge instructions. Patient voiced understanding of discharge instructions. 06/26/20 00:22 ED Medical Decision Making - Lab Data Result diagrams: 06/25/20 21:25 06/25/20 21:25 - Radiology Data Radiology results: report reviewed CT ABDOMEN AND PELVIS WITH CONTRAST INDICATION: L.U.Q. and RIGHT sided flank pain. Pancreatitis vs Stone(s). TECHNIQUE: Axial CT images were obtained through the abdomen and pelvis after 100 cc Omni [address] scans at this location are performed using CT dose reduction for ALARA by means of automated exposure control. COMPARISON: CT abdomen and pelvis 06/10/2020 FINDINGS: LOWER CHEST: No significant abnormality. LIVER: No significant abnormality. GALLBLADDER: Surgically absent. BILE DUCTS: No significant abnormality. PANCREAS: No significant abnormality. SPLEEN: No significant abnormality. ADRENALS: No significant abnormality. RIGHT KIDNEY and URETER: Stable simple 1 cm right renal cyst. LEFT KIDNEY and URETER: No significant abnormality. STOMACH and SMALL BOWEL: No significant abnormality. COLON: Large amount of solid stool throughout colon. APPENDIX: Normal. PERITONEUM: No free fluid. No free air. No fluid collection. LYMPH NODES: No significant adenopathy. AORTA and ARTERIES: No significant abnormality. IVC and VEINS: No significant abnormality. URINARY BLADDER: No significant abnormality. REPRODUCTIVE ORGANS: No significant abnormality. ADDITIONAL FINDINGS: None. SKELETAL SYSTEM: No significant abnormality. IMPRESSION: 1. Constipation. 2. No acute inflammatory process or bowel obstruction. US renal BILAT INDICATION / CLINICAL INFORMATION: right flank pain, hx of stones. COMPARISON: None available. FINDINGS: The right kidney measures 10.3 cm and the left kidney measures 10.7 cm. Small cysts are seen in both kidneys. No definite hydronephrosis is identified. The bladder is distended. IMPRESSION: 1. Distended bladder 2. Small bilateral renal cysts - Medical Decision Making Patient is a 44-year-old female that presents emergency room with complaints of severe abdominal pain. Patient complained of left upper quadrant pain and right flank pain. Patient states she was seen in urgent care found to have an elevated lipase and renal stone. Patient was sent to the emergency room for evaluation. Patient did not have a CT scan at the urgent care. Patient had labs done which showed an elevated lipase and UTI. Patient had a CT scan of the abdomen which ruled out pancreatitis showed no acute findings of her constip ation. Patient had a renal ultrasound which showed a distended bladder and a renal cyst. Patient given pain medications and fluids and antiemetics. Patient responded well to treatment. Patient stable for discharge. Patient will be discharged home. - Differential Diagnosis Flank pain, abdominal pain, pancreatitis, UTI, renal stone Critical care attestation.: If time is entered above; I have spent that time in minutes in the direct care of this critically ill patient, excluding procedure time. ED Disposition Clinical Impression: Acute gastroenteritis, Flank pain, Gastroparesis Abdominal pain Qualifiers: Abdominal location: upper abdomen, unspecified Qualified Code(s): R10.10 - Upper abdominal pain, unspecified Nausea & vomiting Qualifiers: Vomiting type: unspecified Vomiting Intractability: non-intractable Qualified Code(s): R11.2 - Nausea with vomiting, unspecified UTI (urinary tract infection) Qualifiers: Urinary tract infection type: acute cystitis Hematuria presence: with hematuria Qualified Code(s): N30.01 - Acute cystitis with hematuria Disposition: TO HOME OR SELFCARE Is pt being admited?: No Does the pt Need Aspirin: No Condition: Stable Instructions: Abdominal Pain, Adult, Antibiotic Medicine, Adult, [id number], Urinary Tract Infection, Adult, [id number], Nausea and Vomiting, Adult, Abdominal Pain (ED) Additional Instructions: Patient to follow-up with primary care in 2 to 3 days. Patient to rest. Patient to increase water. Patient to take Tylenol as needed for pain. Patient to eat a brat diet. patient to take meds as directed. Patient to return to the ER if condition worsens, changes or new symptoms arise. Prescriptions: Ciprofloxacin HCl 500 mg PO BID 10 Days #20 tablet oxyCODONE /ACETAMINOPHEN [Percocet 5/325 mg] 1 tab PO Q6H PRN #12 tablet PRN Reason: Pain, Moderate (4-6) Promethazine [Phenergan] 25 mg PO Q6HR PRN #20 tab PRN Reason: Nausea Promethazine [Phenergan SUPPOS] 25 mg MT Q6HR PRN #15 supp.rect PRN Reason: Nausea And Vomiting Referrals: PRIMARY CARE, [Primary Care Provider] - 2-3 Days Time of Disposition: 00:22
[2020-06-25] MEDS ORDERED: diphenhydrAMINE 50 MG/ML VIAL ONE (21:33)
[2020-06-25 21:38] LABS: Basophils # (Auto) 0.1 K/mm3 (0.0-0.1); Basophils % (Auto) 1.5 % (0.0-1.8); Eosinophils # (Auto) 0.1 K/mm3 (0.0-0.4); Eosinophils % (Auto) 1.2 % (0.0-4.3); Hematocrit 33.7 % (30.3-42.9); Hemoglobin 10.8 gm/dl (10.1-14.3); Lymphocytes # (Auto) 3.1 K/mm3 (1.2-5.4); Lymphocytes % (Auto) 48.1 % (13.4-35.0); Mean Corpuscular HGB Conc 32 % (30-34); Mean Corpuscular Volume 87 fl (79-97); Monocytes # (Auto) 0.6 K/mm3 (0.0-0.8); Monocytes % (Auto) 9.2 % (0.0-7.3); Platelet Count 243 K/mm3 (140-440); Red Blood Count 3.87 M/mm3 (3.65-5.03); Red Cell Distribution Width 14.2 % (13.2-15.2)
[2020-06-25] MEDS ORDERED: diphenhydrAMINE 50 MG/ML VIAL IV ONE ×2 (21:41→22:58)
[2020-06-25 21:54] LABS: Alanine Aminotransferase 42 units/L (7-56); Albumin 4.3 g/dL (3.9-5); Blood Urea Nitrogen 11 mg/dL (7-17); Calcium 8.5 mg/dL (8.4-10.2); Hemolysis Index 3
[2020-06-25 21:56] LABS: BUN/Creatinine Ratio 18
[2020-06-25] MEDS ORDERED: SODIUM CHLORIDE 0.9% 1000 ML 1,000 ML ONE (22:06)
[2020-06-25] MEDS ORDERED: PROMETHAZINE 25 MG RECT SUPP PR ONE (22:12)
[2020-06-25] MEDS ORDERED: SODIUM CHLORIDE 0.9% 1000 ML 1,000 ML IV ONE ×2 (22:12→22:58)
[2020-06-25 23:10] LABS: Bilirubin,Urine NEG (Negative); Blood,Urine SM (Negative); Color,Urine Yellow (Yellow); Mucus,Urine FEW /HPF; Protein,Urine <15 mg/dL mg/dL (Negative); Urobilinogen,Urine < 2.0 mg/dL (<2.0)
--- NOTE | 2020-06-25 23:46 | Cat Scan Report ---
CT ABDOMEN AND PELVIS WITH CONTRAST INDICATION: L.U.Q. and RIGHT sided flank pain. Pancreatitis vs Stone(s). TECHNIQUE: Axial CT images were obtained through the abdomen and pelvis after 100 cc Omni [address]. [address] scans at this location are performed using CT dose reduction for ALARA by means of automated expos ure control. COMPARISON: CT abdomen and pelvis 06/10/2020 FINDINGS: LOWER CHEST: No significant abnormality. LIVER: No significant abnormality. GALLBLADDER: Surgically absent. BILE DUCTS: No significant abnormality. PANCREAS: No significant abnormality. SPLEEN: No significant abnormality. ADRENALS: No significant abnormality. RIGHT KIDNEY and URETER: Stable simple 1 cm right renal cyst. LEFT KIDNEY and URETER: No significant abnormality. STOMACH and SMALL BOWEL: No significant abnormality. COLON: Large amount of solid stool throughout colon. APPENDIX: Normal. PERITONEUM: No free fluid. No free air. No fluid collection. LYMPH NODES: No significant adenopathy. AORTA and ARTERIES: No significant abnormality. IVC and VEINS: No significant abnormality. URINARY BLADDER: No significant abnormality. REPRODUCTIVE ORGANS: No significant abnormality. ADDITIONAL FINDINGS: None. SKELETAL SYSTEM: No significant abnormality. IMPRESSION: 1. Constipation. 2. No acute inflammatory process or bowel obstruction. Signer Name: Kulwinder Bello MD Signed: 06/25/2020 11:42 PM Workstation Name: [id number]
[2020-06-26] MEDS ORDERED: cefTRIAXone/NS 2 GM/100 ML 2 GM/100 ML BAG IV ONE (00:04)
[2020-06-26 00:28] VITALS: BP 130/96
== END 2020-06-26 01:19 | disposition home or self-care (01) ==
LOC: ED 18:11
DX: K52.9 Noninfective gastroenteritis and colitis, unspecified (principal); K31.84 Gastroparesis; N39.0 Urinary tract infection, site not specified; R11.2 Nausea with vomiting, unspecified; R10.32 Left lower quadrant pain; I10 Essential (primary) hypertension; K21.9 Gastro-esophageal reflux disease without esophagitis; J45.909 Unspecified asthma, uncomplicated; Z90.49 Acquired absence of other specified parts of digestive tract; Z98.890 Other specified postprocedural states; F12.10 Cannabis abuse, uncomplicated; Z79.899 Other long term (current) drug therapy; Z88.8 Allergy status to other drugs, medicaments and biological substances
CPT/HCPCS: 36415; 74177; 76770; 80053; 81001; 83690; 85025; 96361; 96365; 96375; 96376; 99284; J0696; J1170; J1200; J7030; Q0169; Q9967

== ENCOUNTER 2020-07-24 20:52 | Emergency (ER) | payer MEDICAID ==
[2020-07-24 21:24] VITALS: BP 139/74
[2020-07-24] MEDS ORDERED: FAMOTIDINE 20 MG/2 ML INJ IV ONE (22:14)
[2020-07-24] MEDS ORDERED: SODIUM CHLORIDE 0.9% 1000 ML 1,000 ML IV ONE (22:15)
[2020-07-24] MEDS ORDERED: diphenhydrAMINE 50 MG/ML VIAL IV ONE (22:34)
[2020-07-24] MEDS ORDERED: HYDROmorphone 2 MG/1 ML INJ IV ONE (22:34)
--- NOTE | 2020-07-24 22:38 | Emergency Department Report ---
<SUSAN SIMMONS - Last Filed: 07/25/20 00:32> ED Abdominal Pain HPI - General Chief Complaint: Abdominal Pain Stated Complaint: ABDOMINAL PAIN/NAUSEA/VOMITING Source: patient Mode of arrival: Ambulatory Limitations: No Limitations - History of Present Illness Initial Comments: Patient is a 45-year-old -Stateless female with a history of chronic robin roparesis, chronic pancreatitis, asthma, ovarian cancer, lung cancer, kidney stones, IBS who presents to the ED with complaint of acute onset persistent epigastric pain that radiates to the periumbilical area with intractable nausea and vomiting for the last 2 days after drinking alcohol. Patient states that she has not been able to keep anything down in the last 12 hours because of persistent intractable nausea and vomiting and epigastric pain. Patient denies dizziness, syncope, fever, chills, diarrhea, dysuria, urinary frequency and urgency, chest pain, shortness of breath, headache, vaginal bleeding, vaginal discharge, dysuria, urinary frequency and urgency or sore throat. MD Complaint: abdominal pain, other (nausea and vomiitng) -: Sudden, days(s) (2) Location: periumbilical Radiation: none Migration to: no migration Severity: severe Severity scale (0 -10): 8 Quality: cramping, aching, sharp Consistency: constant Improves With: nothing Worsens With: eating, vomiting Context: other (chronic gastroparesis and pancreatitis, s/p ) Associated Symptoms: nausea, vomiting, anorexia - Related Data Previous Rx's Medication Instructions Recorded Last Taken Type Ondansetron (Nf) [Zofran TAB] 8 mg PO Q8HR PRN #14 tablet 11/14/18 Unknown Rx Pantoprazole [Protonix TAB] 40 mg PO QDAY #14 tablet 11/14/18 Unknown Rx Promethazine [Phenergan TAB] 25 mg PO Q6HR PRN #20 tab 12/11/18 Unknown Rx Gabapentin 100 mg PO Q8HR #12 capsule 08/15/19 Unknown Rx traMADoL [Ultram 50 MG tab] 50 mg PO Q6HR PRN #12 tablet 08/15/19 Unknown Rx traMADoL [Ultram 50 MG tab] 50 mg PO Q6HR PRN #10 tablet 10/27/19 Unknown Rx HYDROcodone/APAP 7.5-325 [Gypsy 1 each PO Q6HR PRN #15 tablet 12/27/19 Unknown Rx 7.5/325] Ondansetron [Zofran Odt] 4 mg PO Q4HR PRN #20 tab.rapdis 12/27/19 Unknown Rx Promethazine [Phenergan TAB] 25 mg PO Q6HR PRN #20 tab 12/27/19 Unknown Rx metroNIDAZOLE [Flagyl] 500 mg PO Q12HR #14 tab 01/10/20 Unknown Rx Promethazine [Phenergan] 25 mg PO Q6HR PRN #20 tab 02/26/20 Unknown Rx traMADoL [Ultram] 50 mg PO Q6HR PRN #10 tablet 02/26/20 Unknown Rx Diphenoxylate/Atropine [Lomotil] 1 - 2 tab PO QID PRN #20 tablet 04/13/20 Unknown Rx HYDROcodone/APAP 5-325 [Gypsy 1 - 2 each PO Q6HR PRN #10 tablet 04/13/20 Unknown Rx 5/325] Dicyclomine [Bentyl] 20 mg PO QID PRN #20 tablet 05/12/20 Unknown Rx Promethazine [Phenergan] 25 mg PO Q6HR PRN #20 tab 05/22/20 Unknown Rx HYDROcodone/APAP 5-325 [Gypsy 1 - 2 each PO Q6HR PRN #5 tablet 06/10/20 Unknown Rx 5/325] Promethazine [Phenergan] 25 mg PO Q6HR PRN #20 tab 06/10/20 Unknown Rx Promethazine [Phenergan] [address] Q6HR PRN #5 supp.rect 06/10/20 Unknown Rx Sulfamethoxazole/Trimethoprim 1 each PO BID #6 tablet 06/10/20 Unknown Rx [Bactrim DS TAB] Ciprofloxacin HCl 500 mg PO BID 10 Days #20 tablet 06/26/20 Unknown Rx Promethazine [Phenergan SUPPOS] [address] Q6HR PRN #15 supp.rect 06/26/20 Unknown Rx Promethazine [Phenergan] 25 mg PO Q6HR PRN #20 tab 06/26/20 Unknown Rx oxyCODONE /ACETAMINOPHEN [Percocet 1 tab PO Q6H PRN #12 tablet 06/26/20 Unknown Rx 5/325 mg] Dicyclomine [Bentyl] 20 mg PO Q6H PRN #30 tablet 07/25/20 Unknown Rx Famotidine [Pepcid] 20 mg PO Q12H #60 tablet 07/25/20 Unknown Rx Promethazine HCl [Phenergan SUPPOS] 25 mg RC BID #10 supp.rect 07/25/20 Unknown Rx Promethazine [Phenergan] 25 mg PO Q6HR PRN #20 tab 07/25/20 Unknown Rx Allergies Allergy/AdvReac Type Severity Reaction Status Date / Time codeine Allergy Itching Verified 09/13/18 07:52 fentanyl Allergy Hives Verified 09/13/18 07:52 ketorolac tromethamine Allergy Itching Verified 09/13/18 07:52 [From Toradol] metoclopramide HCl Allergy Hives Verified 09/13/18 07:52 [From Reglan] morphine Allergy Hives Verified 09/13/18 07:52 ondansetron HCl [From Zofran] Allergy Hives Verified 12/24/16 08:17 prochlorperazine edisylate Allergy Hives Verified 09/13/18 07:52 [From Compazine] prochlorperazine maleate Allergy Hives Verified 09/13/18 07:52 [From Compazine] ED Review of Systems Constitutional: denies: chills, fever Eyes: denies: eye pain, eye discharge, vision change ENT: denies: ear pain, throat pain Respiratory: denies: cough, shortness of breath, wheezing Cardiovascular: denies: chest pain, palpitations Endocrine: no symptoms reported Gastrointestinal: abdominal pain, nausea, vomiting. denies: diarrhea Genitourinary: denies: urgency, dysuria, discharge Musculoskeletal: denies: back pain, joint swelling, arthralgia Skin: denies: rash, lesions Neurological: denies: headache, weakness, paresthesias Psychiatric: denies: anxiety, depression Hematological/Lymphatic: denies: easy bleeding, easy bruising ED Past Medical Hx - Past Medical History Previous Medical History?: Yes Hx Hypertension: Yes Hx GERD: Yes (Gastroparesis) Hx Renal Disease: Yes (renal failure- now in remission) Hx Kidney Stones: Yes Hx Asthma: Yes Additional medical history: ovarian/lung ca, gastroparesis, IBS, chronic pancreatitis, anemia. (LYMPHOMA LUNG), pyelonephritis, herpes, Small bowel obstruction,. PORT RIGHT CHEST - Surgical History Past Surgical History?: Yes Hx Open Heart Surgery: No Hx Pacemaker: No Hx Internal Defibrillator: No Hx Cholecystectomy: Yes Additional Surgical History: fistula repair, lower bowel dissection, stents (in/out), hysterectomy 2007. Power port - Social History Smoking Status: Current Every Day Smoker Substance Use Type: None - Medications Home Medications: Home Medications Medication Instructions Recorded Confirmed Last Taken Type Ondansetron (Nf) [Zofran TAB] 8 mg PO Q8HR PRN #14 tablet 11/14/18 Unknown Rx Pantoprazole [Protonix TAB] 40 mg PO QDAY #14 tablet 11/14/18 Unknown Rx Promethazine [Phenergan TAB] 25 mg PO Q6HR PRN #20 tab 12/11/18 Unknown Rx Gabapentin 100 mg PO Q8HR #12 capsule 08/15/19 Unknown Rx traMADoL [Ultram 50 MG tab] 50 mg PO Q6HR PRN #12 tablet 08/15/19 Unknown Rx traMADoL [Ultram 50 MG tab] 50 mg PO Q6HR PRN #10 tablet 10/27/19 Unknown Rx HYDROcodone/APAP 7.5-325 [Gypsy 1 each PO Q6HR PRN #15 tablet 12/27/19 Unknown Rx 7.5/325] Ondansetron [Zofran Odt] 4 mg PO Q4HR PRN #20 tab.rapdis 12/27/19 Unknown Rx Promethazine [Phenergan TAB] 25 mg PO Q6HR PRN #20 tab 12/27/19 Unknown Rx metroNIDAZOLE [Flagyl] 500 mg PO Q12HR #14 tab 01/10/20 Unknown Rx Promethazine [Phenergan] 25 mg PO Q6HR PRN #20 tab 02/26/20 Unknown Rx traMADoL [Ultram] 50 mg PO Q6HR PRN #10 tablet 02/26/20 Unknown Rx Diphenoxylate/Atropine [Lomotil] 1 - 2 tab PO QID PRN #20 tablet 04/13/20 Unknown Rx HYDROcodone/APAP 5-325 [Gypsy 1 - 2 each PO Q6HR PRN #10 tablet 04/13/20 Unknown Rx 5/325] Dicyclomine [Bentyl] 20 mg PO QID PRN #20 tablet 05/12/20 Unknown Rx Promethazine [Phenergan] 25 mg PO Q6HR PRN #20 tab 05/22/20 Unknown Rx HYDROcodone/APAP 5-325 [Gypsy 1 - 2 each PO Q6HR PRN #5 tablet 06/10/20 Unknown Rx 5/325] Promethazine [Phenergan] 25 mg PO Q6HR PRN #20 tab 06/10/20 Unknown Rx Promethazine [Phenergan] [address] Q6HR PRN #5 supp.rect 06/10/20 Unknown Rx Sulfamethoxazole/Trimethoprim 1 each PO BID #6 tablet 06/10/20 Unknown Rx [Bactrim DS TAB] Ciprofloxacin HCl 500 mg PO BID 10 Days #20 tablet 06/26/20 Unknown Rx Promethazine [Phenergan SUPPOS] [address] Q6HR PRN #15 supp.rect 06/26/20 Unknown Rx Promethazine [Phenergan] 25 mg PO Q6HR PRN #20 tab 06/26/20 Unknown Rx oxyCODONE /ACETAMINOPHEN [Percocet 1 tab PO Q6H PRN #12 tablet 06/26/20 Unknown Rx 5/325 mg] Dicyclomine [Bentyl] 20 mg PO Q6H PRN #30 tablet 07/25/20 Unknown Rx Famotidine [Pepcid] 20 mg PO Q12H #60 tablet 07/25/20 Unknown Rx Promethazine HCl [Phenergan SUPPOS] 25 mg RC BID #10 supp.rect 07/25/20 Unknown Rx Promethazine [Phenergan] 25 mg PO Q6HR PRN #20 tab 07/25/20 Unknown Rx ED Physical Exam - General Limitations: No Limitations General appearance: alert, in no apparent distress - Head Head exam: Present: atraumatic, normocephalic, normal inspection - Eye Eye exam: Present: normal appearance, PERRL, EOMI Pupils: Present: normal accommodation - ENT ENT exam: Present: normal exam, normal orophraynx, mucous membranes moist, TM's normal bilaterally, normal external ear exam - Neck Neck exam: Present: normal inspection, full ROM - Respiratory Respiratory exam: Present: normal lung sounds bilaterally. Absent: respiratory distress, wheezes, rales, rhonchi, chest wall tenderness, accessory muscle use, decreased breath sounds, prolonged expiratory - Cardiovascular Cardiovascular Exam: Present: regular rate, normal rhythm, normal heart sounds. Absent: systolic murmur, diastolic murmur, rubs, gallop - GI/Abdominal GI/Abdominal exam: Present: soft, tenderness (Palpable mild epigastric and periumbilical tenderness, no guarding or rebound), normal bowel sounds. Absent: guarding, rebound, hyperactive bowel sounds, hypoactive bowel sounds, organom egaly - Extremities Exam Extremities exam: Present: normal inspection, full ROM, normal capillary refill - Back Exam Back exam: Present: normal inspection, full ROM. Absent: tenderness, CVA tenderness (R), CVA tenderness (L), muscle spasm, paraspinal tenderness, vertebral tenderness - Neurological Exam Neurological exam: Present: alert, oriented X3, CN II-XII intact, normal gait, reflexes normal - Psychiatric Psychiatric exam: Present: normal affect, normal mood - Skin Skin exam: Present: warm, dry, intact, normal color. Absent: rash ED Medical Decision Making - Lab Data Result diagrams: 07/24/20 22:35 07/24/20 22:35 - Medical Decision Making This is a 45-year-old -Stateless female with a history of chronic gastroparesis, chronic pancreatitis, asthma, ovarian cancer, lung cancer, kidney stones, IBS who presents to the ED with complaint of acute onset persistent epigastric pain that radiates to the periumbilical area with intractable nausea and vomiting for the last 2 days after drinking alcohol. Patient states that she has not been able to keep anything down in the last 12 hours because of persistent intractable nausea and vomiting and epigastric pain. In the ED, patient is alert and oriented x3 and is not in distress. Patient has extensive chronic gastroparesis, pancreatitis and ovarian and lung cancer history. In the ED, patient was treated with antacid, antiemetics, also given pain medications and normal saline 1 L IV bolus x1. Lab test results were reviewed and are all nonactionable. Patient however declined to give urine for urinalysis. On reevaluation, patient's pain is well controlled medications. Patient will discharge home on pain medications and antacids and advised to follow-up with her primary care physician or her GI physician in 3 to 5 days for reevaluation. Patient was advised to maintain a clear liquid diet for 12 to 24 hours while taking antiemetics and pain medications as needed. Patient was therefore discharged home and advised to return to the ED immediately if symptoms get worse. - Differential Diagnosis Gastroparesis; gastroenteritis; pancreatitis; UTI; gastritis; GERD ED Disposition Disposition: DC-01 TO HOME OR SELFCARE Is pt being admited?: No Does the pt Need Aspirin: No Condition: Stable Instructions: Nausea and Vomiting, Adult, [id number], Abdominal Pain, Adult, [id number], Gastroparesis, Abdominal Pain (ED) Additional Instructions: All lab test results were reviewed and are all nonactionable. Therefore take medications and follow-up with your primary care physician maintain a clear liquid diet for 12 to 24 hours, drink plenty of fluids, or GI physician in 3 to 5 days for reevaluation. Return to the ED immediately if symptoms get worse. Prescriptions: Dicyclomine [Bentyl] 20 mg PO Q6H PRN #30 tablet PRN Reason: Abdominal pain Famotidine [Pepcid] 20 mg PO Q12H #60 tablet Promethazine [Phenergan] 25 mg PO Q6HR PRN #20 tab PRN Reason: Nausea Promethazine HCl [Phenergan SUPPOS] 25 mg RC BID #10 supp.rect Referrals: ANN MARIE CUELLO MD [Staff Physician] - 3-5 Days Time of Disposition: 00:42 Print Language: MAORI <MANE REYES III - Last Filed: 07/25/20 00:58> ED Abdominal Pain HPI - General PUI?: No ED Review of Systems ROS: Stated complaint: ABDOMINAL PAIN/NAUSEA/VOMITING Other details as noted in HPI ED Course Vital Signs 07/24/20 21:19 Temperature 98.4 F Pulse Rate 92 H Respiratory 18 Rate Blood Pressure 139/74 O2 Sat by Pulse 98 Oximetry - Reevaluation(s) Reevaluation #1: I reviewed the findings and management of this patient in real-time and I have personally seen and examined this patient and participated in the decision penelope sainz for this patient with the midlevel. Patient is a 45-year-old female that presents emergency room for management of chronic abdominal pain. Patient has a long history of abdominal pain that flares up from time to time. I examined the patient. Patient's abdominal exam shows tenderness generalized. Patient has normal CV exam. Patient has a right upper chest port. We accessed the port while in the ER. Patient given Dilaudid while in ER. Patient responded well. Patient also required Benadryl with Dilaudid. I discussed all results and clinical findings with patient. I discussed plan of care with patient. Patient agrees with plan of care. Patient is stable for discharge. Patient will be discharged home. Patient given discharge instructions. Patient voiced understanding of discharge instructions. 07/25/20 00:57 ED Medical Decision Making - Lab Data Result diagrams: 07/24/20 22:35 07/24/20 22:35 Critical care attestation.: If time is entered above; I have spent that time in minutes in the direct care of this critically ill patient, excluding procedure time. ED Disposition Is pt being admited?: No Does the pt Need Aspirin: No
[2020-07-24 22:46] LABS: Hemoglobin 11.6 gm/dl (10.1-14.3); Platelet Count 199 K/mm3 (140-440); Red Cell Distribution Width 14.2 % (13.2-15.2)
[2020-07-24 23:00] LABS: Hematocrit 34.9 % (30.3-42.9); Mean Corpuscular HGB Conc 33 % (30-34); Mean Corpuscular Volume 84 fl (79-97); Red Blood Count 4.18 M/mm3 (3.65-5.03)
[2020-07-24 23:08] LABS: Alanine Aminotransferase 23 units/L (7-56); Albumin 4.8 g/dL (3.9-5); BUN/Creatinine Ratio 14; Blood Urea Nitrogen 10 mg/dL (7-17); Calcium 8.9 mg/dL (8.4-10.2); Hemolysis Index 6
[2020-07-25 00:12] LABS: Basophils % (Auto) 0.5 % (0.0-1.8); Eosinophils % (Auto) 0.7 % (0.0-4.3); Lymphocytes # (Auto) 2.9 K/mm3 (1.2-5.4); Monocytes # (Auto) 0.5 K/mm3 (0.0-0.8); Monocytes % (Auto) 8.1 % (0.0-7.3)
[2020-07-25] MEDS ORDERED: HYDROmorphone 1 MG/1 ML INJ IV ONE (00:46)
[2020-07-25] MEDS ORDERED: diphenhydrAMINE 50 MG/ML VIAL IV ONE (00:50)
== END 2020-07-25 01:30 | disposition home or self-care (01) ==
LOC: ED 20:52
DX: R10.33 Periumbilical pain (principal); R11.2 Nausea with vomiting, unspecified; I10 Essential (primary) hypertension; K21.9 Gastro-esophageal reflux disease without esophagitis; J45.909 Unspecified asthma, uncomplicated; F17.200 Nicotine dependence, unspecified, uncomplicated; Z90.49 Acquired absence of other specified parts of digestive tract; Z98.890 Other specified postprocedural states; Z79.2 Long term (current) use of antibiotics; Z79.899 Other long term (current) drug therapy; Z88.8 Allergy status to other drugs, medicaments and biological substances
CPT/HCPCS: 36415; 80053; 83690; 85025; 96361; 96374; 96375; 99283; J1170; J1200; J7030

== ENCOUNTER 2020-09-01 09:47 | Emergency (ER) | payer MEDICAID ==
--- NOTE | 2020-09-01 11:35 | Event Note ---
ED Screening Note ED Screening Note: pt reports she was diagnosed with partial obstruction in [place] states yesterday began having she is having dark stools with an odor states she is having abdominal pain states she last had a surgical procedure of her abdomen in 2008 This initial assessment/diagnostic orders/clinical plan/treatment(s) is/are subject to change based on patients health status, clinical progression and re- assessment by fellow clinical providers in the ED. Further treatment and workup at subsequent clinical providers discretion. Patient/guardian urged not to elope from the ED as their condition may be serious if not clinically assessed and managed. Initial orders include: labs, UA
[2020-09-01] MEDS ORDERED: HYDROmorphone 1 MG/1 ML INJ IV ONE ×2 (12:42→16:17)
[2020-09-01] MEDS ORDERED: diphenhydrAMINE 25 MG CAP PO ONE ×2 (12:45→16:17)
--- NOTE | 2020-09-01 12:55 | Emergency Department Report ---
ED Abdominal Pain HPI - General Chief Complaint: GI Bleed Stated Complaint: ABD PAIN, BLOOD IN STOOL, BACK PAIN Time Seen by Provider: 09/01/20 11:33 Source: patient Mode of arrival: Ambulatory Limitations: No Limitations - History of Present Illness Initial Comments: 45-year-old female with complex past medical history complicated by multiple abdominal surgeries and subsequent complications from surgeries, a few which include chronic pancreatitis, gastroparesis, bowel obstructions. Patient states she is in [place] 6 days ago and presented to the hospital of the ER for abdominal pain. Patient states she was diagnosed with a partial small bowel o bstruction at that time. She was not admitted. Patient states she has been experiencing this abdominal pain off and on since that time. Patient states the pain became worse this morning and is now associated with bilious vomiting. Patient also reports some diarrhea with streaks of bright red blood. She denies any fever. Patient reports pain is in the left lower quadrant. MD Complaint: abdominal pain -: This morning Location: LLQ Radiation: none Migration to: no migration Severity: moderate Quality: cramping Consistency: constant Improves With: nothing Worsens With: nothing Associated Symptoms: nausea, vomiting, diarrhea, hematochezia. denies: fever - Related Data Previous Rx's Medication Instructions Recorded Last Taken Type Ondansetron (Nf) [Zofran TAB] 8 mg PO Q8HR PRN #14 tablet 11/14/18 Unknown Rx Pantoprazole [Protonix TAB] 40 mg PO QDAY #14 tablet 11/14/18 Unknown Rx Promethazine [Phenergan TAB] 25 mg PO Q6HR PRN #20 tab 12/11/18 Unknown Rx Gabapentin 100 mg PO Q8HR #12 capsule 08/15/19 Unknown Rx traMADoL [Ultram 50 MG tab] 50 mg PO Q6HR PRN #12 tablet 08/15/19 Unknown Rx traMADoL [Ultram 50 MG tab] 50 mg PO Q6HR PRN #10 tablet 10/27/19 Unknown Rx HYDROcodone/APAP 7.5-325 [Commodore 1 each PO Q6HR PRN #15 tablet 12/27/19 Unknown Rx 7.5/325] Ondansetron [Zofran Odt] 4 mg PO Q4HR PRN #20 tab.rapdis 12/27/19 Unknown Rx Promethazine [Phenergan TAB] 25 mg PO Q6HR PRN #20 tab 12/27/19 Unknown Rx metroNIDAZOLE [Flagyl] 500 mg PO Q12HR #14 tab 01/10/20 Unknown Rx Promethazine [Phenergan] 25 mg PO Q6HR PRN #20 tab 02/26/20 Unknown Rx traMADoL [Ultram] 50 mg PO Q6HR PRN #10 tablet 02/26/20 Unknown Rx Diphenoxylate/Atropine [Lomotil] 1 - 2 tab PO QID PRN #20 tablet 04/13/20 Unknown Rx HYDROcodone/APAP 5-325 [Commodore 1 - 2 each PO Q6HR PRN #10 tablet 04/13/20 Unknown Rx 5/325] Dicyclomine [Bentyl] 20 mg PO QID PRN #20 tablet 05/12/20 Unknown Rx Promethazine [Phenergan] 25 mg PO Q6HR PRN #20 tab 05/22/20 Unknown Rx HYDROcodone/APAP 5-325 [Commodore 1 - 2 each PO Q6HR PRN #5 tablet 06/10/20 Unknown Rx 5/325] Promethazine [Phenergan] 25 mg PO Q6HR PRN #20 tab 06/10/20 Unknown Rx Sulfamethoxazole/Trimethoprim 1 each PO BID #6 tablet 06/10/20 Unknown Rx [Bactrim DS TAB] Ciprofloxacin HCl 500 mg PO BID 10 Days #20 tablet 06/26/20 Unknown Rx Promethazine [Phenergan SUPPOS] 25 mg LA Q6HR PRN #15 supp.rect 06/26/20 Unknown Rx Promethazine [Phenergan] 25 mg PO Q6HR PRN #20 tab 06/26/20 Unknown Rx oxyCODONE /ACETAMINOPHEN [Percocet 1 tab PO Q6H PRN #12 tablet 06/26/20 Unknown Rx 5/325 mg] Dicyclomine [Bentyl] 20 mg PO Q6H PRN #30 tablet 07/25/20 Unknown Rx Famotidine [Pepcid] 20 mg PO Q12H #60 tablet 07/25/20 Unknown Rx Promethazine HCl [Phenergan SUPPOS] 25 mg RC BID #10 supp.rect 07/25/20 Unknown Rx Promethazine [Phenergan] 25 mg PO Q6HR PRN #20 tab 07/25/20 Unknown Rx Dicyclomine [Bentyl] 20 mg PO QID PRN #20 tablet 09/01/20 Unknown Rx Promethazine [Phenergan SUPPOS] 25 mg LA Q6HR PRN #20 supp.rect 09/01/20 Unknown Rx traMADoL [Ultram] 50 mg PO Q6HR PRN #7 tablet 09/01/20 Unknown Rx Allergies Allergy/AdvReac Type Severity Reaction Status Date / Time codeine Allergy Itching Verified 09/01/20 09:54 fentanyl Allergy Hives Verified 09/01/20 09:54 ketorolac tromethamine Allergy Itching Verified 09/01/20 09:54 [From Toradol] metoclopramide HCl Allergy Hives Verified 09/01/20 09:54 [From Reglan] morphine Allergy Hives Verified 09/01/20 09:54 ondansetron HCl [From Zofran] Allergy Hives Verified 09/01/20 09:54 prochlorperazine edisylate Allergy Hives Verified 09/01/20 09:54 [From Compazine] prochlorperazine maleate Allergy Hives Verified 09/01/20 09:54 [From Compazine] ED Review of Systems ROS: Stated complaint: ABD PAIN, BLOOD IN STOOL, BACK PAIN Other details as noted in HPI Comment: All other systems reviewed and negative Constitutional: denies: chills, fever Gastrointestinal: abdominal pain, nausea, vomiting, diarrhea ED Past Medical Hx - Past Medical History Hx Hypertension: Yes Hx GERD: Yes (Gastroparesis) Hx Renal Disease: Yes (renal failure- now in remission) Hx Kidney Stones: Yes Hx Asthma: Yes Additional medical history: ovarian/lung ca, gastroparesis, IBS, chronic pancreatitis, anemia. (LYMPHOMA LUNG), pyelonephritis, herpes, Small bowel obstruction,. PORT RIGHT CHEST - Surgical History Hx Open Heart Surgery: No Hx Pacemaker: No Hx Internal Defibrillator: No Hx Cholecystectomy: Yes Additional Surgical History: fistula repair, lower bowel dissection, stents (in/out), hysterectomy 2007. Power port - Social History Smoking Status: Current Some Day Smoker Substance Use Type: None - Medications Home Medications: Home Medications Medication Instructions Recorded Confirmed Last Taken Type Ondansetron (Nf) [Zofran TAB] 8 mg PO Q8HR PRN #14 tablet 11/14/18 Unknown Rx Pantoprazole [Protonix TAB] 40 mg PO QDAY #14 tablet 11/14/18 Unknown Rx Promethazine [Phenergan TAB] 25 mg PO Q6HR PRN #20 tab 12/11/18 Unknown Rx Gabapentin 100 mg PO Q8HR #12 capsule 08/15/19 Unknown Rx traMADoL [Ultram 50 MG tab] 50 mg PO Q6HR PRN #12 tablet 08/15/19 Unknown Rx traMADoL [Ultram 50 MG tab] 50 mg PO Q6HR PRN #10 tablet 10/27/19 Unknown Rx HYDROcodone/APAP 7.5-325 [Commodore 1 each PO Q6HR PRN #15 tablet 12/27/19 Unknown Rx 7.5/325] Ondansetron [Zofran Odt] 4 mg PO Q4HR PRN #20 tab.rapdis 12/27/19 Unknown Rx Promethazine [Phenergan TAB] 25 mg PO Q6HR PRN #20 tab 12/27/19 Unknown Rx metroNIDAZOLE [Flagyl] 500 mg PO Q12HR #14 tab 01/10/20 Unknown Rx Promethazine [Phenergan] 25 mg PO Q6HR PRN #20 tab 02/26/20 Unknown Rx traMADoL [Ultram] 50 mg PO Q6HR PRN #10 tablet 02/26/20 Unknown Rx Diphenoxylate/Atropine [Lomotil] 1 - 2 tab PO QID PRN #20 tablet 04/13/20 Unknown Rx HYDROcodone/APAP 5-325 [Commodore 1 - 2 each PO Q6HR PRN #10 tablet 04/13/20 Unknown Rx 5/325] Dicyclomine [Bentyl] 20 mg PO QID PRN #20 tablet 05/12/20 Unknown Rx Promethazine [Phenergan] 25 mg PO Q6HR PRN #20 tab 05/22/20 Unknown Rx HYDROcodone/APAP 5-325 [Commodore 1 - 2 each PO Q6HR PRN #5 tablet 06/10/20 Unknown Rx 5/325] Promethazine [Phenergan] 25 mg PO Q6HR PRN #20 tab 06/10/20 Unknown Rx Sulfamethoxazole/Trimethoprim 1 each PO BID #6 tablet 06/10/20 Unknown Rx [Bactrim DS TAB] Ciprofloxacin HCl 500 mg PO BID 10 Days #20 tablet 06/26/20 Unknown Rx Promethazine [Phenergan SUPPOS] 25 mg LA Q6HR PRN #15 supp.rect 06/26/20 Unknown Rx Promethazine [Phenergan] 25 mg PO Q6HR PRN #20 tab 06/26/20 Unknown Rx oxyCODONE /ACETAMINOPHEN [Percocet 1 tab PO Q6H PRN #12 tablet 06/26/20 Unknown Rx 5/325 mg] Dicyclomine [Bentyl] 20 mg PO Q6H PRN #30 tablet 07/25/20 Unknown Rx Famotidine [Pepcid] 20 mg PO Q12H #60 tablet 07/25/20 Unknown Rx Promethazine HCl [Phenergan SUPPOS] 25 mg RC BID #10 supp.rect 07/25/20 Unknown Rx Promethazine [Phenergan] 25 mg PO Q6HR PRN #20 tab 07/25/20 Unknown Rx Dicyclomine [Bentyl] 20 mg PO QID PRN #20 tablet 09/01/20 Unknown Rx Promethazine [Phenergan SUPPOS] 25 mg LA Q6HR PRN #20 supp.rect 09/01/20 Unknown Rx traMADoL [Ultram] 50 mg PO Q6HR PRN #7 tablet 09/01/20 Unknown Rx ED Physical Exam - General Limitations: No Limitations General appearance: alert, in no apparent distress - Head Head exam: Present: atraumatic, normocephalic - Eye Eye exam: Present: normal appearance, EOMI - ENT ENT exam: Present: mucous membranes moist - Neck Neck exam: Present: normal inspection - Respiratory Respiratory exam: Present: normal lung sounds bilaterally. Absent: respiratory distress - Cardiovascular Cardiovascular Exam: Present: regular rate, normal rhythm - GI/Abdominal GI/Abdominal exam: Present: soft, tenderness (LLQ tenderness). Absent: distended - Extremities Exam Extremities exam: Present: normal inspection - Neurological Exam Neurological exam: Present: alert, oriented X3 - Psychiatric Psychiatric exam: Present: normal affect, normal mood - Skin Skin exam: Present: warm, dry, intact, normal color ED Course Vital Signs 09/01/20 09/01/20 09/01/20 09:52 12:22 12:29 Temperature 98.7 F Pulse Rate 85 84 78 Respiratory 18 20 17 Rate Blood Pressure 117/81 Blood Pressure 118/83 [Right] O2 Sat by Pulse 100 98 Oximetry 09/01/20 09/01/20 09/01/20 12:30 13:00 14:00 Temperature Pulse Rate 74 74 80 Respiratory 11 L 14 17 Rate Blood Pressure 122/80 131/82 141/84 Blood Pressure [Right] O2 Sat by Pulse 95 100 Oximetry 09/01/20 09/01/20 09/01/20 14:16 14:30 14:46 Temperature Pulse Rate 72 72 71 Respiratory 21 12 16 Rate Blood Pressure 136/78 119/83 141/84 Blood Pressure [Right] O2 Sat by Pulse 99 99 99 Oximetry 09/01/20 09/01/20 09/01/20 15:00 15:16 15:30 Temperature Pulse Rate 71 76 79 Respiratory 12 16 16 Rate Blood Pressure 141/84 125/44 116/86 Blood Pressure [Right] O2 Sat by Pulse 87 97 99 Oximetry 09/01/20 09/01/20 09/01/20 15:46 16:00 17:31 Temperature Pulse Rate 83 108 H Respiratory 17 27 H Rate Blood Pressure 116/86 116/86 123/84 Blood Pressure [Right] O2 Sat by Pulse 100 92 Oximetry ED Medical Decision Making - Lab Data Result diagrams: 09/01/20 14:09 09/01/20 14:09 - Radiology Data Radiology results: report reviewed, image reviewed - Medical Decision Making 45-year-old female with chronic abdominal pain presents to ED with acute exacerb ation, along with nausea and vomiting. Vital signs are normal. Patient reports some light rectal bleeding along with diarrhea. Her hemoglobin is normal. Abdomen is soft. Remainder of labs are unremarkable. Patient was concerned for possible bowel obstruction, however CT abdomen pelvis is normal. Patient will be discharged at this time. She is feeling much better following pain medication administration. Outpatient follow-up with GI advised, return precautions given. - Differential Diagnosis Bowel obstruction, diverticulitis, chronic abdominal pain, gastroparesis Critical care attestation.: If time is entered above; I have spent that time in minutes in the direct care of this critically ill patient, excluding procedure time. ED Disposition Clinical Impression: Abdominal pain Disposition: DC-01 TO HOME OR SELFCARE Is pt being admited?: No Condition: Stable Instructions: Abdominal Pain, Adult, [id number] Prescriptions: Dicyclomine [Bentyl] 20 mg PO QID PRN #20 tablet PRN Reason: abdominal pain Promethazine [Phenergan SUPPOS] 25 mg LA Q6HR PRN #20 supp.rect PRN Reason: Vomiting traMADoL [Ultram] 50 mg PO Q6HR PRN #7 tablet PRN Reason: Pain Referrals: PRIMARY CARE, [Primary Care Provider] - 3-5 Days [facility] [Provider Group] - 3-5 Days Forms: Accompanied Note Time of Disposition: 17:43
[2020-09-01 15:04] LABS: Basophils # (Auto) 0.1 K/mm3 (0.0-0.1); Basophils % (Auto) 1.6 % (0.0-1.8); Eosinophils % (Auto) 0.4 % (0.0-4.3); Hemoglobin 11.1 gm/dl (10.1-14.3); Lymphocytes # (Auto) 2.7 K/mm3 (1.2-5.4); Lymphocytes % (Auto) 50.1 % (13.4-35.0); Mean Corpuscular HGB Conc 33 % (30-34); Mean Corpuscular Volume 84 fl (79-97); Monocytes # (Auto) 0.4 K/mm3 (0.0-0.8); Monocytes % (Auto) 7.1 % (0.0-7.3); Platelet Count 197 K/mm3 (140-440); Red Blood Count 4.03 M/mm3 (3.65-5.03); Red Cell Distribution Width 15.2 % (13.2-15.2)
[2020-09-01 15:13] LABS: INR 0.99 (0.87-1.13)
[2020-09-01 15:14] LABS: Partial Thromboplastin Time 31.5 Sec. (24.2-36.6)
[2020-09-01 16:01] LABS: Alanine Aminotransferase 12 units/L (7-56); Albumin 4.2 g/dL (3.9-5); Blood Urea Nitrogen 9 mg/dL (7-17); Calcium 8.4 mg/dL (8.4-10.2); Hemolysis Index 3
[2020-09-01 16:07] LABS: BUN/Creatinine Ratio 15
[2020-09-01 16:50] LABS: Bilirubin,Urine NEG (Negative); Blood,Urine NEG (Negative); Color,Urine Yellow (Yellow); Mucus,Urine FEW /HPF; Protein,Urine <15 mg/dL mg/dL (Negative); Urobilinogen,Urine < 2.0 mg/dL (<2.0)
--- NOTE | 2020-09-01 17:33 | Cat Scan Report ---
CT ABDOMEN AND PELVIS WITH IV CONTRAST INDICATION: abd pain, vomiting. COMPARISON: CT 06/25/2020 TECHNIQUE: All CT scans at this facility use dose modulation, automated exposure control, iterative reconstructi on or weight based dosing, when appropriate, to reduce radiation dose to as low as reasonably achieva ble. FINDINGS: Lung Bases: No significant abnormality. Skeletal System: No acute abnormality. ABDOMEN: Liver: No significant abnormality. Gallbladder: Removed. Bile Ducts: No significant abnormality. Pancreas: No significant abnormality. Spleen: No significant abnormality. Adrenals: No significant abnormality. Right Kidney: No significant abnormality. Stable small cyst. Left Kidney: No significant abnormality. Stable small cyst lower pole. Upper GI tract: No significant abnormality. Lymph Nodes: No significant adenopathy. Aorta: No significant abnormality. Additional Findings: No significant abnormality. PELVIS: Colon: No acute abnormality. Diverticulosis is noted. Urinary Bladder and Distal Ureters: No significant abnormality. Appendix: No significant abnormality. Lymph Nodes: No significant adenopathy. Additional Findings: None. IMPRESSION: 1. No acute process in the abdomen or pelvis. 2. Incidental findings, as above. Signer Name: Dimitris Ramos MD Signed: 09/01/2020 5:28 PM Workstation Name: [id number]
[2020-09-01 17:57] VITALS: BP 123/84
== END 2020-09-01 18:10 | disposition home or self-care (01) ==
LOC: ED 09:47
DX: R10.9 Unspecified abdominal pain (principal); J45.909 Unspecified asthma, uncomplicated; I10 Essential (primary) hypertension; K21.9 Gastro-esophageal reflux disease without esophagitis; D64.9 Anemia, unspecified; F17.200 Nicotine dependence, unspecified, uncomplicated; Z90.49 Acquired absence of other specified parts of digestive tract; Z90.710 Acquired absence of both cervix and uterus; Z79.899 Other long term (current) drug therapy; Z88.6 Allergy status to analgesic agent; Z88.8 Allergy status to other drugs, medicaments and biological substances; Z98.890 Other specified postprocedural states
CPT/HCPCS: 36415; 74177; 80053; 81001; 83690; 85025; 85610; 85730; 96374; 96376; 99284; J1170; J1642; Q9967

== ENCOUNTER 2020-09-10 20:42 | Emergency (ER) | payer MEDICAID ==
[2020-09-10 21:46] VITALS: BP 118/79
[2020-09-11] MEDS ORDERED: PROMETHAZINE 50 MG RECT SUPP PR ONE (01:27)
[2020-09-11] MEDS ORDERED: HYDROmorphone 2 MG/1 ML INJ IV ONE ×2 (01:27→05:20)
[2020-09-11] MEDS ORDERED: diphenhydrAMINE 50 MG/ML VIAL IV ONE ×2 (01:27→05:20)
[2020-09-11] MEDS ORDERED: SODIUM CHLORIDE 0.9% 1000 ML 1,000 ML IV ONE (01:28)
--- NOTE | 2020-09-11 01:36 | Emergency Department Report ---
ED Abdominal Pain HPI - General Chief Complaint: GI Bleed Stated Complaint: ABD PAIN/BLOODY STOOL/EMESIS PUI?: No Time Seen by Provider: 09/11/20 01:18 Source: patient Mode of arrival: Ambulatory Limitations: No Limitations - History of Present Illness Initial Comments: Patient is a 45-year-old female that is presents emergency room for abdominal pain, bright red blood per rectum, nausea, vomiting, abdominal stenting x2 days. Patient dates her symptoms are worsening. Patient states she not able to hold down. Patient states her pain is a 10 out of 10. Patient states her bright red blood per rectum is only when she wipes. Patient states she is straining a lot with constipation. Patient denies diarrhea. Patient denies fever and chills. Patient states that she had her labs checked by her primary care and gastroente rology and her lipase was elevated at 187. Patient states that her primary care sent to evaluate. Patient denies recent travel. Patient denies recent international travel. Patient denies exposure to the novel coronavirus. Patient denies sick contacts. Patient denies fever and chills. Patient denies cough. Patient denies diarrhea. Patient denies coming in contact with anybody with symptoms of the novel coronavirus. MD Complaint: abdominal pain -: Sudden Location: diffuse Radiation: none Migration to: no migration Severity: severe Severity scale (0 -10): 10 Quality: stabbing Consistency: constant Improves With: rest Worsens With: vomiting, movement Associated Symptoms: nausea, vomiting, hematochezia - Related Data LMP (females 10-50): other (History of a hysterectomy) Previous Rx's Medication Instructions Recorded Last Taken Type Ondansetron (Nf) [Zofran TAB] 8 mg PO Q8HR PRN #14 tablet 11/14/18 Unknown Rx Pantoprazole [Protonix TAB] 40 mg PO QDAY #14 tablet 11/14/18 Unknown Rx Promethazine [Phenergan TAB] 25 mg PO Q6HR PRN #20 tab 12/11/18 Unknown Rx Gabapentin 100 mg PO Q8HR #12 capsule 08/15/19 Unknown Rx traMADoL [Ultram 50 MG tab] 50 mg PO Q6HR PRN #12 tablet 08/15/19 Unknown Rx traMADoL [Ultram 50 MG tab] 50 mg PO Q6HR PRN #10 tablet 10/27/19 Unknown Rx HYDROcodone/APAP 7.5-325 [[place] 1 each PO Q6HR PRN #15 tablet 12/27/19 Unknown Rx 7.5/325] Ondansetron [Zofran Odt] 4 mg PO Q4HR PRN #20 tab.rapdis 12/27/19 Unknown Rx Promethazine [Phenergan TAB] 25 mg PO Q6HR PRN #20 tab 12/27/19 Unknown Rx metroNIDAZOLE [Flagyl] 500 mg PO Q12HR #14 tab 01/10/20 Unknown Rx Promethazine [Phenergan] 25 mg PO Q6HR PRN #20 tab 02/26/20 Unknown Rx traMADoL [Ultram] 50 mg PO Q6HR PRN #10 tablet 02/26/20 Unknown Rx Diphenoxylate/Atropine [Lomotil] 1 - 2 tab PO QID PRN #20 tablet 04/13/20 Unknown Rx HYDROcodone/APAP 5-325 [[place] 1 - 2 each PO Q6HR PRN #10 tablet 04/13/20 Unknown Rx 5/325] Dicyclomine [Bentyl] 20 mg PO QID PRN #20 tablet 05/12/20 Unknown Rx Promethazine [Phenergan] 25 mg PO Q6HR PRN #20 tab 05/22/20 Unknown Rx HYDROcodone/APAP 5-325 [[place] 1 - 2 each PO Q6HR PRN #5 tablet 06/10/20 Unknown Rx 5/325] Promethazine [Phenergan] 25 mg PO Q6HR PRN #20 tab 06/10/20 Unknown Rx Sulfamethoxazole/Trimethoprim 1 each PO BID #6 tablet 06/10/20 Unknown Rx [Bactrim DS TAB] Ciprofloxacin HCl 500 mg PO BID 10 Days #20 tablet 06/26/20 Unknown Rx Promethazine [Phenergan SUPPOS] 25 mg [place] Q6HR PRN #15 supp.rect 06/26/20 Unknown Rx Promethazine [Phenergan] 25 mg PO Q6HR PRN #20 tab 06/26/20 Unknown Rx Dicyclomine [Bentyl] 20 mg PO Q6H PRN #30 tablet 07/25/20 Unknown Rx Famotidine [Pepcid] 20 mg PO Q12H #60 tablet 07/25/20 Unknown Rx Promethazine HCl [Phenergan SUPPOS] 25 mg RC BID #10 supp.rect 07/25/20 Unknown Rx Promethazine [Phenergan] 25 mg PO Q6HR PRN #20 tab 07/25/20 Unknown Rx Dicyclomine [Bentyl] 20 mg PO QID PRN #20 tablet 09/01/20 Unknown Rx Promethazine [Phenergan SUPPOS] 25 mg [place] Q6HR PRN #20 supp.rect 09/01/20 Unknown Rx traMADoL [Ultram] 50 mg PO Q6HR PRN #7 tablet 09/01/20 Unknown Rx oxyCODONE /ACETAMINOPHEN [Percocet 1 tab PO Q6H PRN #12 tablet 09/11/20 Unknown Rx 5/325 mg] Allergies Allergy/AdvReac Type Severity Reaction Status Date / Time codeine Allergy Itching Verified 09/01/20 09:54 fentanyl Allergy Hives Verified 09/01/20 09:54 ketorolac tromethamine Allergy Itching Verified 09/01/20 09:54 [From Toradol] metoclopramide HCl Allergy Hives Verified 09/01/20 09:54 [From Reglan] morphine Allergy Hives Verified 09/01/20 09:54 ondansetron HCl [From Zofran] Allergy Hives Verified 09/01/20 09:54 prochlorperazine edisylate Allergy Hives Verified 09/01/20 09:54 [From Compazine] prochlorperazine maleate Allergy Hives Verified 09/01/20 09:54 [From Compazine] ED Review of Systems ROS: Stated complaint: ABD PAIN/BLOODY STOOL/EMESIS Other details as noted in HPI Constitutional: denies: chills, fever Eyes: denies: eye pain, eye discharge, vision change ENT: denies: ear pain, throat pain Respiratory: denies: cough, shortness of breath, wheezing Cardiovascular: denies: chest pain, palpitations Endocrine: no symptoms reported Gastrointestinal: as per HPI, abdominal pain, nausea, vomiting, hematochezia. denies: diarrhea Genitourinary: denies: urgency, dysuria, discharge Musculoskeletal: denies: back pain, joint swelling, arthralgia Skin: denies: rash, lesions Neurological: denies: headache, weakness, paresthesias Psychiatric: denies: anxiety, depression Hematological/Lymphatic: denies: easy bleeding, easy bruising ED Past Medical Hx - Past Medical History Previous Medical History?: Yes Hx Hypertension: Yes Hx GERD: Yes (Gastroparesis) Hx Renal Disease: Yes (renal failure- now in remission) Hx Kidney Stones: Yes Hx Asthma: Yes Additional medical history: ovarian/lung ca, gastroparesis, IBS, chronic panc reatitis, anemia. (LYMPHOMA LUNG), pyelonephritis, herpes, Small bowel obstruction,. PORT RIGHT CHEST - Surgical History Past Surgical History?: Yes Hx Open Heart Surgery: No Hx Pacemaker: No Hx Internal Defibrillator: No Hx Cholecystectomy: Yes Additional Surgical History: fistula repair, lower bowel dissection, stents (in/out), hysterectomy 2007. Power port - Family History Family history: no significant - Social History Smoking Status: Current Some Day Smoker Substance Use Type: None - Medications Home Medications: Home Medications Medication Instructions Recorded Confirmed Last Taken Type Ondansetron (Nf) [Zofran TAB] 8 mg PO Q8HR PRN #14 tablet 11/14/18 Unknown Rx Pantoprazole [Protonix TAB] 40 mg PO QDAY #14 tablet 11/14/18 Unknown Rx Promethazine [Phenergan TAB] 25 mg PO Q6HR PRN #20 tab 12/11/18 Unknown Rx Gabapentin 100 mg PO Q8HR #12 capsule 08/15/19 Unknown Rx traMADoL [Ultram 50 MG tab] 50 mg PO Q6HR PRN #12 tablet 08/15/19 Unknown Rx traMADoL [Ultram 50 MG tab] 50 mg PO Q6HR PRN #10 tablet 10/27/19 Unknown Rx HYDROcodone/APAP 7.5-325 [[place] 1 each PO Q6HR PRN #15 tablet 12/27/19 Unknown Rx 7.5/325] Ondansetron [Zofran Odt] 4 mg PO Q4HR PRN #20 tab.rapdis 12/27/19 Unknown Rx Promethazine [Phenergan TAB] 25 mg PO Q6HR PRN #20 tab 12/27/19 Unknown Rx metroNIDAZOLE [Flagyl] 500 mg PO Q12HR #14 tab 01/10/20 Unknown Rx Promethazine [Phenergan] 25 mg PO Q6HR PRN #20 tab 02/26/20 Unknown Rx traMADoL [Ultram] 50 mg PO Q6HR PRN #10 tablet 02/26/20 Unknown Rx Diphenoxylate/Atropine [Lomotil] 1 - 2 tab PO QID PRN #20 tablet 04/13/20 Unknown Rx HYDROcodone/APAP 5-325 [[place] 1 - 2 each PO Q6HR PRN #10 tablet 04/13/20 Unknown Rx 5/325] Dicyclomine [Bentyl] 20 mg PO QID PRN #20 tablet 05/12/20 Unknown Rx Promethazine [Phenergan] 25 mg PO Q6HR PRN #20 tab 05/22/20 Unknown Rx HYDROcodone/APAP 5-325 [[place] 1 - 2 each PO Q6HR PRN #5 tablet 06/10/20 Unknown Rx 5/325] Promethazine [Phenergan] 25 mg PO Q6HR PRN #20 tab 06/10/20 Unknown Rx Sulfamethoxazole/Trimethoprim 1 each PO BID #6 tablet 06/10/20 Unknown Rx [Bactrim DS TAB] Ciprofloxacin HCl 500 mg PO BID 10 Days #20 tablet 06/26/20 Unknown Rx Promethazine [Phenergan SUPPOS] 25 mg [place] Q6HR PRN #15 supp.rect 06/26/20 Unknown Rx Promethazine [Phenergan] 25 mg PO Q6HR PRN #20 tab 06/26/20 Unknown Rx Dicyclomine [Bentyl] 20 mg PO Q6H PRN #30 tablet 07/25/20 Unknown Rx Famotidine [Pepcid] 20 mg PO Q12H #60 tablet 07/25/20 Unknown Rx Promethazine HCl [Phenergan SUPPOS] 25 mg RC BID #10 supp.rect 07/25/20 Unknown Rx Promethazine [Phenergan] 25 mg PO Q6HR PRN #20 tab 07/25/20 Unknown Rx Dicyclomine [Bentyl] 20 mg PO QID PRN #20 tablet 09/01/20 Unknown Rx Promethazine [Phenergan SUPPOS] 25 mg [place] Q6HR PRN #20 supp.rect 09/01/20 Unknown Rx traMADoL [Ultram] 50 mg PO Q6HR PRN #7 tablet 09/01/20 Unknown Rx oxyCODONE /ACETAMINOPHEN [Percocet 1 tab PO Q6H PRN #12 tablet 09/11/20 Unknown Rx 5/325 mg] ED Physical Exam - General Limitations: No Limitations General appearance: alert, in no apparent distress - Head Head exam: Present: atraumatic, normocephalic - Eye Eye exam: Present: normal appearance - ENT ENT exam: Present: mucous membranes moist - Neck Neck exam: Present: normal inspection - Respiratory Respiratory exam: Present: normal lung sounds bilaterally. Absent: respiratory distress - Cardiovascular Cardiovascular Exam: Present: regular rate, normal rhythm. Absent: systolic murmur, diastolic murmur, rubs, gallop - GI/Abdominal GI/Abdominal exam: Present: soft, tenderness, normal bowel sounds - Extremities Exam Extremities exam: Present: normal inspection - Back Exam Back exam: Present: normal inspection - Neurological Exam Neurological exam: Present: alert, oriented X3 - Psychiatric Psychiatric exam: Present: normal affect, normal mood - Skin Skin exam: Present: warm, dry, intact, normal color. Absent: rash ED Course Vital Signs 09/10/20 21:44 Temperature 98.8 F Pulse Rate 84 Respiratory 16 Rate Blood Pressure 118/79 O2 Sat by Pulse 100 Oximetry - Reevaluation(s) Reevaluation #1: Patient states her nausea has improved. Patient states her pain has improved. 09/11/20 03:05 Reevaluation #2: Patient states that the pain is coming back. Patient was given another 2 mg of Dilaudid. 09/11/20 05:40 Reevaluation #3: Patient states she is feeling better. I discussed all results and clinical findings with patient. I discussed plan of care with patient. Patient agrees with plan of care. Patient is stable for discharge. Patient will be discharged home. Patient given discharge instructions. Patient voiced understanding of discharge instructions. 09/11/20 06:00 ED Medical Decision Making - Lab Data Result diagrams: 09/11/20 02:11 09/11/20 02:11 - Radiology Data Radiology results: report reviewed CT ABDOMEN AND PELVIS WITH CONTRAST INDICATION / CLINICAL INFORMATION: Patient complains of "Generalized" abdominal pain.. TECHNIQUE: Axial CT images were obtained through the abdomen and pelvis after 100 mL Omnipaque [address] scans at this location are performed using CT dose reduction for ALARA by means of automated exposure control. COMPARISON: CT abdomen pelvis 09/01/2020 FINDINGS: LOWER CHEST: No significant abnormality. LIVER: No significant abnormality. BILIARY SYSTEM: Prior cholecystectomy. PANCREAS: No significant abnormality. SPLEEN: No significant abnormality. ADRENALS: No significant abnormality. KIDNEYS and URETERS: Unchanged small cysts. STOMACH / BOWEL: No significant abnormality. The appendix is normal. PERITONEUM: No free fluid. No free air. No fluid collection. LYMPH NODES: No significant adenopathy. VASCULAR STRUCTURES: No significant abnormality. URINARY BLADDER: No significant abnormality. REPRODUCTIVE ORGANS: Prior hysterectomy. ADDITIONAL FINDINGS: None. SKELETAL SYSTEM: No significant abnormality. IMPRESSION: 1. No acute process identified within the abdomen or pelvis to account for patient's abdominal pain. - Medical Decision Making Patient is a 45-year-old female that presents emergency room with complaints of abdominal pain, nausea, vomiting, bright red blood per rectum. Patient states that she has smearing on the toilet tissue. Patient generalized abdominal pain. Patient is significant chronic pain history as well as chronic pancreatitis. Patient found to have an elevated lipase as an outpatient. Patient had an elevated lipase here. Patient's labs were unremarkable except for the elevated lipase. Patient had a CT scan to rule out an acute process. Patient CT scan was negative for acute findings. Patient given 2 doses of Dilaudid and her pain improved. Patient's nausea was improved with rectal Phenergan. Patient is stable for discharge. Patient be discharged home. - Differential Diagnosis Chronic abdominal pain, pancreatitis, bright red blood per rectum, Critical care attestation.: If time is entered above; I have spent that time in minutes in the direct care of this critically ill patient, excluding procedure time. ED Disposition Clinical Impression: Bright red blood per rectum, Chronic abdominal pain, Elevated lipase Abdominal pain Qualifiers: Abdominal location: generalized Qualified Code(s): R10.84 - Generalized abdominal pain Nausea & vomiting Qualifiers: Vomiting type: unspecified Vomiting Intractability: non-intractable Qualified Code(s): R11.2 - Nausea with vomiting, unspecified Disposition: DC-01 TO HOME OR SELFCARE Is pt being admited?: No Does the pt Need Aspirin: No Condition: Stable Instructions: Abdominal Pain, Adult, [id number], Nausea, Adult, [id number], Nausea and Vomiting, Adult, [id number] Additional Instructions: Patient to follow-up with primary care in 2 to 3 days. Patient to follow-up with GI and pain management in 2 to 3 days. Patient to rest. Patient to increase water. Patient to avoid strenuous exercise or heavy lifting until cleared by primary care. Patient to take Tylenol or ibuprofen as needed for pain. Patient to take meds as directed. Patient to return to the ER if condition worsens, changes or new symptoms arise. Prescriptions: oxyCODONE /ACETAMINOPHEN [Percocet 5/325 mg] 1 tab PO Q6H PRN #12 tablet PRN Reason: Pain, Moderate (4-6) Referrals: MAGDA GRAYSON NP-C [Primary Care Provider] - 2-3 Days Forms: Accompanied Note Time of Disposition: 06:01
[2020-09-11 02:33] LABS: Basophils % (Auto) 0.3 % (0.0-1.8); Eosinophils % (Auto) 0.4 % (0.0-4.3); Hematocrit 32.6 % (30.3-42.9); Hemoglobin 10.7 gm/dl (10.1-14.3); Lymphocytes # (Auto) 2.6 K/mm3 (1.2-5.4); Lymphocytes % (Auto) 45.2 % (13.4-35.0); Mean Corpuscular HGB Conc 33 % (30-34); Mean Corpuscular Volume 84 fl (79-97); Monocytes # (Auto) 0.5 K/mm3 (0.0-0.8); Monocytes % (Auto) 7.8 % (0.0-7.3); Platelet Count 248 K/mm3 (140-440); Red Blood Count 3.88 M/mm3 (3.65-5.03); Red Cell Distribution Width 15.1 % (13.2-15.2)
[2020-09-11 02:53] LABS: Blood Urea Nitrogen 17 mg/dL (7-17); Calcium 8.8 mg/dL (8.4-10.2); Hemolysis Index 8
[2020-09-11 03:27] LABS: BUN/Creatinine Ratio 24
--- NOTE | 2020-09-11 03:55 | Cat Scan Report ---
CT ABDOMEN AND PELVIS WITH CONTRAST INDICATION / CLINICAL INFORMATION: Patient complains of "Generalized" abdominal pain.. TECHNIQUE: Axial CT images were obtained through the abdomen and pelvis after 100 mL Omnipaque [address] scans at this location are performed using CT dose reduction for ALARA by means of automated exposure control. COMPARISON: CT abdomen pelvis 09/01/2020 FINDINGS: LOWER CHEST: No significant abnormality. LIVER: No significant abnormality. BILIARY SYSTEM: Prior cholecystectomy. PANCREAS: No significant abnormality. SPLEEN: No significant abnormality. ADRENALS: No significant abnormality. KIDNEYS and URETERS: Unchanged small cysts. STOMACH / BOWEL: No significant abnormality. The appendix is normal. PERITONEUM: No free fluid. No free air. No fluid collection. LYMPH NODES: No significant adenopathy. VASCULAR STRUCTURES: No significant abnormality. URINARY BLADDER: No significant abnormality. REPRODUCTIVE ORGANS: Prior hysterectomy. ADDITIONAL FINDINGS: None. SKELETAL SYSTEM: No significant abnormality. IMPRESSION: 1. No acute process identified within the abdomen or pelvis to account for patient's abdominal pain. Signer Name: Estephania Jensen MD Signed: 09/11/2020 3:50 AM Workstation Name: [id number]
[2020-09-11] MEDS ORDERED: HYDROmorphone 1 MG/1 ML INJ ONE (05:22)
[2020-09-11] MEDS ORDERED: diphenhydrAMINE 50 MG/ML VIAL ONE (05:22)
== END 2020-09-11 07:03 | disposition home or self-care (01) ==
LOC: ED 20:42
DX: R10.84 Generalized abdominal pain (principal); G89.29 Other chronic pain; R11.2 Nausea with vomiting, unspecified; K92.1 Melena; R74.8 Abnormal levels of other serum enzymes; I10 Essential (primary) hypertension; K21.9 Gastro-esophageal reflux disease without esophagitis; F17.200 Nicotine dependence, unspecified, uncomplicated; J45.909 Unspecified asthma, uncomplicated; Z90.710 Acquired absence of both cervix and uterus; Z98.890 Other specified postprocedural states; Z79.899 Other long term (current) drug therapy; Z88.8 Allergy status to other drugs, medicaments and biological substances
CPT/HCPCS: 36415; 74177; 80048; 83690; 85025; 96361; 96374; 96375; 96376; 99284; J1170; J1200; J7030; Q9967

== ENCOUNTER 2020-09-20 19:50 | Emergency (ER) | payer MEDICAID ==
[2020-09-20 20:21] VITALS: BP 109/77
[2020-09-20] MEDS ORDERED: SODIUM CHLORIDE 0.9% 1000 ML IV SOLN IV ONE (22:31)
--- NOTE | 2020-09-20 22:44 | Emergency Department Report ---
ED Abdominal Pain HPI - General Chief Complaint: Nausea/Vomiting/Diarrhea Stated Complaint: NAUSEA/VOMITING/DIARRHEA Time Seen by Provider: 09/20/20 22:24 Source: patient Mode of arrival: Ambulatory Limitations: No Limitations - History of Present Illness Initial Comments: 45-year-old -[place] female with a involved gastrointestinal past medical history which resulted in acute on chronic pancreatitis/chronic pancreatic pancreatitis, gastroparesis, bowel obstructions, multiple abdominal surgeries and chronic pain presents emergency department complaining of continued abdominal pain stemming from her previous visit. States she was seen here about 1 week ago so with normal CT scan and labs and was prescribed some antibiotics. She took the antibiotic as prescribed and then began to develop some diarrhea which was followed by cramping and pain and she was unsure whether her pancreatitis had flareup worse from the previous visit or it was diarrhea related. She reports no hemoptysis no hematemesis hematochezia, no fever, chills, sweats. No chest pain or palpitations. Reports continued dysuria MD Complaint: abdominal pain Migration to: no migration Severity: mild Quality: dull Consistency: constant - Related Data Previous Rx's Medication Instructions Recorded Last Taken Type Ondansetron (Nf) [Zofran TAB] 8 mg PO Q8HR PRN #14 tablet 11/14/18 Unknown Rx RX: Pantoprazole [Protonix TAB] 40 mg PO QDAY #14 tablet 11/14/18 Unknown Rx Promethazine [Phenergan TAB] 25 mg PO Q6HR PRN #20 tab 12/11/18 Unknown Rx RX: Gabapentin 100 mg PO Q8HR #12 capsule 08/15/19 Unknown Rx RX: traMADoL [Ultram 50 MG tab] 50 mg PO Q6HR PRN #12 tablet 08/15/19 Unknown Rx RX: traMADoL [Ultram 50 MG tab] 50 mg PO Q6HR PRN #10 tablet 10/27/19 Unknown Rx HYDROcodone/APAP 7.5-325 [[place] 1 each PO Q6HR PRN #15 tablet 12/27/19 Unknown Rx 7.5/325] Ondansetron [Zofran Odt] 4 mg PO Q4HR PRN #20 tab.rapdis 12/27/19 Unknown Rx Promethazine [Phenergan TAB] 25 mg PO Q6HR PRN #20 tab 08/21/20 Unknown Rx metroNIDAZOLE [Flagyl] 500 mg PO Q12HR #14 tab 01/10/20 Unknown Rx Promethazine [Phenergan] 25 mg PO Q6HR PRN #20 tab 02/26/20 Unknown Rx traMADoL [Ultram] 50 mg PO Q6HR PRN #10 tablet 02/26/20 Unknown Rx Diphenoxylate/Atropine [Lomotil] 1 - 2 tab PO QID PRN #20 tablet 04/13/20 Unknown Rx HYDROcodone/APAP 5-325 [[place] 1 - 2 each PO Q6HR PRN #10 tablet 04/13/20 Unknown Rx 5/325] Dicyclomine [Bentyl] 20 mg PO QID PRN #20 tablet 05/12/20 Unknown Rx RX: Promethazine [Phenergan] 25 mg PO Q6HR PRN #20 tab 05/22/20 Unknown Rx HYDROcodone/APAP 5-325 [[place] 1 - 2 each PO Q6HR PRN #5 tablet 06/10/20 Unknown Rx 5/325] Promethazine [Phenergan] 25 mg PO Q6HR PRN #20 tab 06/10/20 Unknown Rx Sulfamethoxazole/Trimethoprim 1 each PO BID #6 tablet 06/10/20 Unknown Rx [Bactrim DS TAB] RX: Ciprofloxacin HCl 500 mg PO BID 10 Days #20 tablet 06/26/20 Unknown Rx RX: Promethazine [Phenergan SUPPOS] 25 mg [place] Q6HR PRN #15 supp.rect 06/26/20 Unknown Rx RX: Promethazine [Phenergan] 25 mg PO Q6HR PRN #20 tab 06/26/20 Unknown Rx Famotidine [Pepcid] 20 mg PO Q12H #60 tablet 07/25/20 Unknown Rx RX: Dicyclomine [Bentyl] 20 mg PO Q6H PRN #30 tablet 07/25/20 Unknown Rx RX: Promethazine HCl [Phenergan 25 mg RC BID #10 supp.rect 07/25/20 Unknown Rx SUPPOS] RX: Promethazine [Phenergan] 25 mg PO Q6HR PRN #20 tab 07/25/20 Unknown Rx Dicyclomine [Bentyl] 20 mg PO QID PRN #20 tablet 09/01/20 Unknown Rx RX: Promethazine [Phenergan SUPPOS] 25 mg [place] Q6HR PRN #20 supp.rect 09/01/20 Unknown Rx traMADoL [Ultram] 50 mg PO Q6HR PRN #7 tablet 09/01/20 Unknown Rx RX: oxyCODONE /ACETAMINOPHEN 1 tab PO Q6H PRN #12 tablet 09/11/20 Unknown Rx [Percocet 5/325 mg] Hyoscyamine Subl [Levsin Sl 0.125 0.125 mg PO Q4HR #20 tablet 09/21/20 Unknown Rx TAB] Allergies Allergy/AdvReac Type Severity Reaction Status Date / Time codeine Allergy Itching Verified 09/01/20 09:54 fentanyl Allergy Hives Verified 09/01/20 09:54 ketorolac tromethamine Allergy Itching Verified 09/01/20 09:54 [From Toradol] metoclopramide HCl Allergy Hives Verified 09/01/20 09:54 [From Reglan] morphine Allergy Hives Verified 09/01/20 09:54 ondansetron HCl [From Zofran] Allergy Hives Verified 09/01/20 09:54 prochlorperazine edisylate Allergy Hives Verified 09/01/20 09:54 [From Compazine] prochlorperazine maleate Allergy Hives Verified 09/01/20 09:54 [From Compazine] ED Review of Systems ROS: Stated complaint: NAUSEA/VOMITING/DIARRHEA Other details as noted in HPI Comment: All other systems reviewed and negative ED Past Medical Hx - Past Medical History Previous Medical History?: Yes Hx Hypertension: Yes Hx GERD: Yes (Gastroparesis) Hx Renal Disease: Yes (renal failure- now in remission) Hx Kidney Stones: Yes Hx Asthma: Yes Additional medical history: ovarian/lung ca, gastroparesis, IBS, chronic pancreatitis, anemia. (LYMPHOMA LUNG), pyelonephritis, herpes, Small bowel obstruction,. PORT RIGHT CHEST - Surgical History Past Surgical History?: Yes Hx Open Heart Surgery: No Hx Pacemaker: No Hx Internal Defibrillator: No Hx Cholecystectomy: Yes Additional Surgical History: fistula repair, lower bowel dissection, stents (in/out), hysterectomy 2007. Power port - Social History Smoking Status: Former Smoker Substance Use Type: Marijuana - Medications Home Medications: Home Medications Medication Instructions Recorded Confirmed Last Taken Type Ondansetron (Nf) [Zofran TAB] 8 mg PO Q8HR PRN #14 tablet 11/14/18 Unknown Rx RX: Pantoprazole [Protonix TAB] 40 mg PO QDAY #14 tablet 11/14/18 Unknown Rx Promethazine [Phenergan TAB] 25 mg PO Q6HR PRN #20 tab 12/11/18 Unknown Rx RX: Gabapentin 100 mg PO Q8HR #12 capsule 08/15/19 Unknown Rx RX: traMADoL [Ultram 50 MG tab] 50 mg PO Q6HR PRN #12 tablet 08/15/19 Unknown Rx RX: traMADoL [Ultram 50 MG tab] 50 mg PO Q6HR PRN #10 tablet 10/27/19 Unknown Rx HYDROcodone/APAP 7.5-325 [[place] 1 each PO Q6HR PRN #15 tablet 12/27/19 Unknown Rx 7.5/325] Ondansetron [Zofran Odt] 4 mg PO Q4HR PRN #20 tab.rapdis 12/27/19 Unknown Rx Promethazine [Phenergan TAB] 25 mg PO Q6HR PRN #20 tab 12/27/19 Unknown Rx metroNIDAZOLE [Flagyl] 500 mg PO Q12HR #14 tab 01/10/20 Unknown Rx Promethazine [Phenergan] 25 mg PO Q6HR PRN #20 tab 02/26/20 Unknown Rx traMADoL [Ultram] 50 mg PO Q6HR PRN #10 tablet 02/26/20 Unknown Rx Diphenoxylate/Atropine [Lomotil] 1 - 2 tab PO QID PRN #20 tablet 04/13/20 Unknown Rx HYDROcodone/APAP 5-325 [[place] 1 - 2 each PO Q6HR PRN #10 tablet 04/13/20 Unknown Rx 5/325] Dicyclomine [Bentyl] 20 mg PO QID PRN #20 tablet 05/12/20 Unknown Rx RX: Promethazine [Phenergan] 25 mg PO Q6HR PRN #20 tab 05/22/20 Unknown Rx HYDROcodone/APAP 5-325 [[place] 1 - 2 each PO Q6HR PRN #5 tablet 06/10/20 Unknown Rx 5/325] Promethazine [Phenergan] 25 mg PO Q6HR PRN #20 tab 06/10/20 Unknown Rx Sulfamethoxazole/Trimethoprim 1 each PO BID #6 tablet 06/10/20 Unknown Rx [Bactrim DS TAB] RX: Ciprofloxacin HCl 500 mg PO BID 10 Days #20 tablet 06/26/20 Unknown Rx RX: Promethazine [Phenergan SUPPOS] 25 mg [place] Q6HR PRN #15 supp.rect 06/26/20 Unknown Rx RX: Promethazine [Phenergan] 25 mg PO Q6HR PRN #20 tab 06/26/20 Unknown Rx Famotidine [Pepcid] 20 mg PO Q12H #60 tablet 07/25/20 Unknown Rx RX: Dicyclomine [Bentyl] 20 mg PO Q6H PRN #30 tablet 07/25/20 Unknown Rx RX: Promethazine HCl [Phenergan 25 mg RC BID #10 supp.rect 07/25/20 Unknown Rx SUPPOS] RX: Promethazine [Phenergan] 25 mg PO Q6HR PRN #20 tab 07/25/20 Unknown Rx Dicyclomine [Bentyl] 20 mg PO QID PRN #20 tablet 09/01/20 Unknown Rx RX: Promethazine [Phenergan SUPPOS] 25 mg [place] Q6HR PRN #20 supp.rect 09/01/20 Unknown Rx traMADoL [Ultram] 50 mg PO Q6HR PRN #7 tablet 09/01/20 Unknown Rx RX: oxyCODONE /ACETAMINOPHEN 1 tab PO Q6H PRN #12 tablet 09/11/20 Unknown Rx [Percocet 5/325 mg] Hyoscyamine Subl [Levsin Sl 0.125 0.125 mg PO Q4HR #20 tablet 09/21/20 Unknown Rx TAB] ED Physical Exam - General Limitations: No Limitations General appearance: alert, in no apparent distress - Head Head exam: Present: atraumatic, normocephalic - Eye Eye exam: Present: normal appearance, PERRL, EOMI Pupils: Present: normal accommodation - ENT ENT exam: Present: normal exam, mucous membranes moist - Neck Neck exam: Present: normal inspection, full ROM - Respiratory Respiratory exam: Present: normal lung sounds bilaterally. Absent: respiratory distress, wheezes, rales - Cardiovascular Cardiovascular Exam: Present: regular rate, normal rhythm. Absent: systolic murmur, diastolic murmur, rubs, gallop - GI/Abdominal GI/Abdominal exam: Present: soft, tenderness (Reports and is able to touch involving the flank of the abdomen. Demented soft bowel sounds are positive no masses are appreciated no bruises and normal temp and), normal bowel sounds. Absent: distended, guarding, rebound - Extremities Exam Extremities exam: Present: normal inspection, full ROM, normal capillary refill. Absent: tenderness, pedal edema - Back Exam Back exam: Present: normal inspection. Absent: CVA tenderness (R), CVA tenderness (L) - Neurological Exam Neurological exam: Present: alert, oriented X3, CN II-XII intact, normal gait - Psychiatric Psychiatric exam: Present: normal affect, normal mood. Absent: anxious, flat affect - Skin Skin exam: Present: warm, dry, intact, normal color. Absent: rash, cyanosis, diaphoretic, erythema ED Course Vital Signs 09/20/20 20:18 Temperature 99.2 F Pulse Rate 87 Respiratory 18 Rate Blood Pressure 109/77 O2 Sat by Pulse 97 Oximetry ED Medical Decision Making - Lab Data Result diagrams: 09/20/20 23:02 09/20/20 23:02 Lab Results 09/20/20 09/20/20 09/20/20 Range/Units 23:02 23:02 23:08 WBC 7.7 (4.5-11.0) K/mm3 RBC 3.95 (3.65-5.03) M/mm3 Hgb 11.0 (10.1-14.3) gm/dl Hct 33.2 (30.3-42.9) % MCV 84 (79-97) fl MCH 28 (28-32) pg MCHC 33 (30-34) % RDW 15.3 H (13.2-15.2) % Plt Count 188 (140-440) K/mm3 Lymph % (Auto) 41.5 H (13.4-35.0) % Cass % (Auto) 9.1 H (0.0-7.3) % Eos % (Auto) 0.4 (0.0-4.3) % Baso % (Auto) 0.3 (0.0-1.8) % Lymph # (Auto) 3.2 (1.2-5.4) K/mm3 Cass # (Auto) 0.7 (0.0-0.8) K/mm3 Eos # (Auto) 0.0 (0.0-0.4) K/mm3 Baso # (Auto) 0.0 (0.0-0.1) K/mm3 Seg Neutrophils % 48.7 (40.0-70.0) % Seg Neutrophils # 3.7 (1.8-7.7) K/mm3 Sodium 140 (137-145) mmol/L Potassium 4.4 (3.6-5.0) mmol/L Chloride 103.6 (98-107) mmol/L Carbon Dioxide 25 (22-30) mmol/L Anion Gap 16 mmol/L BUN 20 H (7-17) mg/dL Creatinine 0.9 (0.6-1.2) mg/dL Estimated GFR > 60 ml/min BUN/Creatinine Ratio 22 % Glucose 84 (65-100) mg/dL Calcium 8.7 (8.4-10.2) mg/dL Total Bilirubin < 0.20 (0.1-1.2) mg/dL AST 42 H (5-40) units/L ALT 11 (7-56) units/L Alkaline Phosphatase 73 (35-129) units/L Total Protein 6.5 (6.3-8.2) g/dL Albumin 4.4 (3.9-5) g/dL Albumin/Globulin Ratio 2.1 % Lipase 157 H (13-60) units/L Urine Color Yellow (Yellow) Urine Turbidity Clear (Clear) Urine pH 7.0 (5.0-7.0) Ur Specific [place] 1.027 (1.003-1.030) Urine Protein 30 mg/dl (Negative) mg/dL Urine Glucose (UA) Neg (Negative) mg/dL Urine Ketones Neg (Negative) mg/dL Urine Blood Neg (Negative) Urine Nitrite Neg (Negative) Urine Bilirubin Neg (Negative) Urine Urobilinogen < 2.0 (<2.0) mg/dL Ur Leukocyte Esterase Tr (Negative) Urine WBC (Auto) 5.0 (0.0-6.0) /HPF Urine RBC (Auto) 14.0 (0.0-6.0) /HPF U Epithel Cells (Auto) 2.0 (0-13.0) /HPF Urine Bacteria (Auto) 1+ (Negative) /HPF Urine Mucus Few /HPF - Radiology Data Radiology results: report reviewed - Medical Decision Making This patient presents with abdominal pain of unclear etiology. Their evaluation has not identified a emergent etiology for the abdominal pain. Specifically, given the very benign exam, normal laboratory studies, and lack of significant risk factors, I have a very low suspicion for appendicitis, ischemic bowel, bowel perforation, or any other life threatening disease. I have discussed with the patient the level of uncertainty with undifferentiated abdominal pain and clearly explained the need to follow-up as noted on the discharge instructions, or return to the Emergency Department immediately if the pain worsens, develops fever, persistent and uncontrollable vomiting, or for any new symptoms or concerns. I discussed with the patient that this presentation today for abdominal pain could represent a significant risk for an acute abdominal process. Although the tests in the ED were essentially normal, there is still a possibility of a process such as appendicitis, diverticulitis, cholecystitis, ulcer, early bowel obstruction, mesenteric ischemia, kidney stone, or even kidney infection which could subsequently cause disability or . The patient understands that they must return within 24 hours for a recheck or see their physician within 24 hours for re-exam due to the possibility of significant surgical or medical process. Plan is to discharge Ms. Solano home as she is hemodynamically stable. No acute distress her of her vital signs are not emergent. Her lipase is marginal change from the previous and other laboratory findings are relatively unremarkable Critical care attestation.: If time is entered above; I have spent that time in minutes in the direct care of this critically ill patient, excluding procedure time. ED Disposition Clinical Impression: Chronic abdominal pain, Elevated lipase, Diarrhea Disposition: TO HOME OR SELFCARE Is pt being admited?: No Does the pt Need Aspirin: No Condition: Stable Instructions: Chronic Pain, Adult, Food Choices to Help Relieve Diarrhea, Adult Additional Instructions: Please follow-up with your primary care provider for definitive management and treatment of your chronic lipase elevation and chronic abdominal pain. In regards to your diarrhea please take the associated antibiotic and restart your previous medications. Prescriptions: Hyoscyamine Subl [Levsin Sl 0.125 TAB] 0.125 mg PO Q4HR #20 tablet Referrals: PRIMARY CAREMD [Primary Care Provider] - 3-5 Days [facility] [Provider Group] - 3-5 Days
[2020-09-20 23:25] LABS: Basophils % (Auto) 0.3 % (0.0-1.8); Eosinophils % (Auto) 0.4 % (0.0-4.3); Hematocrit 33.2 % (30.3-42.9); Lymphocytes # (Auto) 3.2 K/mm3 (1.2-5.4); Lymphocytes % (Auto) 41.5 % (13.4-35.0); Mean Corpuscular HGB Conc 33 % (30-34); Mean Corpuscular Volume 84 fl (79-97); Monocytes # (Auto) 0.7 K/mm3 (0.0-0.8); Monocytes % (Auto) 9.1 % (0.0-7.3); Platelet Count 188 K/mm3 (140-440); Red Blood Count 3.95 M/mm3 (3.65-5.03); Red Cell Distribution Width 15.3 % (13.2-15.2)
[2020-09-20 23:31] LABS: Bacteria,Urine 1+ /HPF (Negative); Bilirubin,Urine NEG (Negative); Blood,Urine NEG (Negative); Color,Urine Yellow (Yellow); Mucus,Urine FEW /HPF; Urobilinogen,Urine < 2.0 mg/dL (<2.0)
[2020-09-20 23:49] LABS: Alanine Aminotransferase 11 units/L (7-56); Albumin 4.4 g/dL (3.9-5); BUN/Creatinine Ratio 22; Blood Urea Nitrogen 20 mg/dL (7-17); Calcium 8.7 mg/dL (8.4-10.2); Hemolysis Index 35
[2020-09-21] MEDS ORDERED: MORPHINE 4 MG/1 ML INJ IV STA (00:05)
[2020-09-21] MEDS ORDERED: diphenhydrAMINE 50 MG/ML VIAL IV STA (00:05)
== END 2020-09-21 03:45 | disposition home or self-care (01) ==
LOC: ED 19:50
DX: R19.7 Diarrhea, unspecified (principal); R74.8 Abnormal levels of other serum enzymes; R10.9 Unspecified abdominal pain; I10 Essential (primary) hypertension; K21.9 Gastro-esophageal reflux disease without esophagitis; J45.909 Unspecified asthma, uncomplicated; F12.10 Cannabis abuse, uncomplicated; Z87.891 Personal history of nicotine dependence; Z98.890 Other specified postprocedural states; Z79.899 Other long term (current) drug therapy; Z88.8 Allergy status to other drugs, medicaments and biological substances
CPT/HCPCS: 36415; 80053; 81001; 83690; 85025; 96361; 96374; 96375; 99283; J1200; J2270; J7030

== ENCOUNTER 2020-10-01 04:11 | Emergency (ER) | payer MEDICAID ==
[2020-10-01] MEDS ORDERED: MORPHINE 4 MG/1 ML INJ IV ONE (04:31)
[2020-10-01] MEDS ORDERED: MORPHINE 4 MG/1 ML INJ ONE (04:32)
[2020-10-01] MEDS ORDERED: diphenhydrAMINE 50 MG/ML VIAL IV ONE ×2 (04:32→09:32)
[2020-10-01] MEDS ORDERED: diphenhydrAMINE 50 MG/ML VIAL ONE ×2 (04:32→07:22)
[2020-10-01] MEDS ORDERED: ONDANSETRON 4 MG/2 ML INJ ONE ×2 (04:32→09:34)
[2020-10-01] MEDS ORDERED: ONDANSETRON 4 MG/2 ML INJ IV ONE ×2 (04:32→09:32)
[2020-10-01 04:57] LABS: Hematocrit 30.8 % (30.3-42.9); Hemoglobin 10.2 gm/dl (10.1-14.3); Mean Corpuscular HGB Conc 33 % (30-34); Mean Corpuscular Volume 85 fl (79-97); Platelet Count 248 K/mm3 (140-440); Red Blood Count 3.65 M/mm3 (3.65-5.03); Red Cell Distribution Width 14.8 % (13.2-15.2)
[2020-10-01 05:14] LABS: Alanine Aminotransferase 8 units/L (7-56); Albumin 4.1 g/dL (3.9-5); Blood Urea Nitrogen 9 mg/dL (7-17); Calcium 8.5 mg/dL (8.4-10.2); Hemolysis Index 3
[2020-10-01 05:17] LABS: BUN/Creatinine Ratio 13
[2020-10-01 05:28] LABS: Band Neutrophils # (Manual) 0.1 K/mm3; Total Cells Counted 100
[2020-10-01 05:29] LABS: Anisocytosis 1+; Burr Cells 1+; Platelet Estimate Consistent w Auto; Poikilocytosis 1+
[2020-10-01] MEDS ORDERED: HYDROmorphone 1 MG/1 ML INJ IV ONE ×3 (06:56→13:15)
[2020-10-01] MEDS ORDERED: PROMETHAZINE 25 MG RECT SUPP PR ONE (06:56)
--- NOTE | 2020-10-01 07:00 | Emergency Department Report ---
HPI - General Chief Complaint: Abdominal Pain Time Seen by Provider: 10/01/20 06:47 - HPI HPI: Room 19 The patient is a 45-year-old female present with a chief complaint of abdominal pain. Patient states she presents with her usual abdominal pain which started back up yesterday. Patient describes it as diffuse sharp and cramping pain associated with nausea vomiting. Patient denies dysuria. Patient currently gives her pain a score of 8/10. Patient came to the ED by EMS ED Past Medical Hx - Past Medical History Hx Hypertension: Yes Hx GERD: Yes (Gastroparesis, Chronic Pancreatitis) Hx Renal Disease: Yes (renal failure- now in remission) Hx Kidney Stones: Yes Hx Asthma: Yes Additional medical history: ovarian/lung ca, gastroparesis, IBS, chronic panc reatitis, anemia. (LYMPHOMA LUNG), pyelonephritis, herpes, Small bowel obstruction,. PORT RIGHT CHEST - Surgical History Hx Cholecystectomy: Yes Additional Surgical History: fistula repair, lower bowel dissection, stents (in/out), hysterectomy 2007. Power port - Family History Family history: no significant - Social History Smoking Status: Former Smoker Substance Use Type: Marijuana - Medications Home Medications: Home Medications Medication Instructions Recorded Confirmed Last Taken Type Ondansetron (Nf) [Zofran TAB] 8 mg PO Q8HR PRN #14 tablet 11/14/18 Unknown Rx Pantoprazole [Protonix TAB] 40 mg PO QDAY #14 tablet 11/14/18 Unknown Rx Gabapentin 100 mg PO Q8HR #12 capsule 08/15/19 Unknown Rx traMADoL [Ultram 50 MG tab] 50 mg PO Q6HR PRN #10 tablet 10/27/19 Unknown Rx HYDROcodone/APAP 7.5-325 [[place] 1 each PO Q6HR PRN #15 tablet 12/27/19 Unknown Rx 7.5/325] Ondansetron [Zofran Odt] 4 mg PO Q4HR PRN #20 tab.rapdis 12/27/19 Unknown Rx Promethazine [Phenergan TAB] 25 mg PO Q6HR PRN #20 tab 12/27/19 Unknown Rx metroNIDAZOLE [Flagyl] 500 mg PO Q12HR #14 tab 01/10/20 Unknown Rx Promethazine [Phenergan] 25 mg PO Q6HR PRN #20 tab 02/26/20 Unknown Rx traMADoL [Ultram] 50 mg PO Q6HR PRN #10 tablet 02/26/20 Unknown Rx Diphenoxylate/Atropine [Lomotil] 1 - 2 tab PO QID PRN #20 tablet 04/13/20 Unknown Rx HYDROcodone/APAP 5-325 [[place] 1 - 2 each PO Q6HR PRN #10 tablet 04/13/20 Unknown Rx 5/325] Dicyclomine [Bentyl] 20 mg PO QID PRN #20 tablet 05/12/20 Unknown Rx Promethazine [Phenergan] 25 mg PO Q6HR PRN #20 tab 05/22/20 Unknown Rx HYDROcodone/APAP 5-325 [[place] 1 - 2 each PO Q6HR PRN #5 tablet 06/10/20 Unknown Rx 5/325] Promethazine [Phenergan] 25 mg PO Q6HR PRN #20 tab 06/10/20 Unknown Rx Sulfamethoxazole/Trimethoprim 1 each PO BID #6 tablet 06/10/20 Unknown Rx [Bactrim DS TAB] Ciprofloxacin HCl 500 mg PO BID 10 Days #20 tablet 06/26/20 Unknown Rx Promethazine [Phenergan SUPPOS] 25 mg [place] Q6HR PRN #15 supp.rect 06/26/20 Unknown Rx Promethazine [Phenergan] 25 mg PO Q6HR PRN #20 tab 06/26/20 Unknown Rx Dicyclomine [Bentyl] 20 mg PO Q6H PRN #30 tablet 07/25/20 Unknown Rx Famotidine [Pepcid] 20 mg PO Q12H #60 tablet 07/25/20 Unknown Rx Promethazine HCl [Phenergan SUPPOS] 25 mg RC BID #10 supp.rect 07/25/20 Unknown Rx Promethazine [Phenergan] 25 mg PO Q6HR PRN #20 tab 07/25/20 Unknown Rx Dicyclomine [Bentyl] 20 mg PO QID PRN #20 tablet 09/01/20 Unknown Rx Promethazine [Phenergan SUPPOS] 25 mg ND Q6HR PRN #20 supp.rect 09/01/20 Unknown Rx traMADoL [Ultram] 50 mg PO Q6HR PRN #7 tablet 09/01/20 Unknown Rx oxyCODONE /ACETAMINOPHEN [Percocet 1 tab PO Q6H PRN #12 tablet 09/11/20 Unknown Rx 5/325 mg] Hyoscyamine Subl [Levsin Sl 0.125 0.125 mg PO Q4HR #20 tablet 09/21/20 Unknown Rx TAB] Promethazine [Phenergan] 25 mg PO Q6HR PRN #20 tab 09/21/20 Unknown Rx traMADoL [Ultram 50 MG tab] 50 mg PO Q6HR PRN #12 tablet 09/21/20 Unknown Rx HYDROcodone/APAP 5-325 [[place] 1 - 2 each PO Q6HR PRN #10 tablet 10/01/20 Unknown Rx 5/325] Promethazine [Phenergan] 25 mg PO Q6HR PRN #20 tab 10/01/20 Unknown Rx Promethazine [Phenergan] 25 mg ND Q6HR PRN #5 supp.rect 10/01/20 Unknown Rx ED Review of Systems ROS: Stated complaint: ABD PAIN X 4 DAYS Other details as noted in HPI Constitutional: fever Eyes: denies: eye pain ENT: denies: throat pain Respiratory: no symptoms reported Cardiovascular: denies: chest pain Endocrine: no symptoms reported Gastrointestinal: abdominal pain, nausea, vomiting Genitourinary: denies: dysuria Musculoskeletal: denies: back pain Neurological: denies: headache Physical Exam - Physical Exam Vital Signs: Vital Signs 10/01/20 10/01/20 04:23 05:10 Temperature 98.7 F Pulse Rate 74 Respiratory 18 17 Rate Blood Pressure 120/84 [Right] O2 Sat by Pulse 100 99 Oximetry Physical Exam: GENERAL: The patient is well-developed well-nourished female lying on stretcher not appearing to be in acute distress. [] HEENT: Normocephalic. Atraumatic. Extraocular motions are intact. Patient has moist mucous membranes. NECK: Supple. Trachea midline CHEST/LUNGS: Clear to auscultation. There is no respiratory distress noted. HEART/CARDIOVASCULAR: Regular. There is no tachycardia. There is no gallop rub or murmur. ABDOMEN: Abdomen is soft, with tenderness to palpation of the left upper quadrant left lower quadrant and right lower quadrant. There is no rebound or guarding. Patient has normal bowel sounds. There is no abdominal distention. SKIN: There is no rash. There is no edema. There is no diaphoresis. NEURO: The patient is awake, alert, and oriented. The patient is cooperative. The patient has no focal neurologic deficits. The patient has normal speech MUSCULOSKELETAL: There is no evidence of acute injury. ED Course Vital Signs 10/01/20 10/01/20 04:23 05:10 Temperature 98.7 F Pulse Rate 74 Respiratory 18 17 Rate Blood Pressure 120/84 [Right] O2 Sat by Pulse 100 99 Oximetry - Reevaluation(s) Reevaluation #1: 10/01/20 13:16 Patient states she is improving ED Medical Decision Making - Lab Data Result diagrams: 10/01/20 04:39 10/01/20 04:39 - Differential Diagnosis Acute on chronic abdominal pain, UTI Critical care attestation.: If time is entered above; I have spent that time in minutes in the direct care of this critically ill patient, excluding procedure time. ED Disposition Clinical Impression: Abdominal pain, Nausea & vomiting Disposition: -01 TO HOME OR SELFCARE Is pt being admited?: No Does the pt Need Aspirin: No Condition: Stable Instructions: Abdominal Pain (ED), Nausea and Vomiting, Adult Additional Instructions: Return to the emergency department should you develop worsening symptoms, inability to tolerate food or liquids, high fever or any other concerns Prescriptions: HYDROcodone/APAP 5-325 [[place] 5/325] 1 - 2 each PO Q6HR PRN #10 tablet PRN Reason: Pain Promethazine [Phenergan] 25 mg PO Q6HR PRN #20 tab PRN Reason: Nausea Promethazine [Phenergan] 25 mg ND Q6HR PRN #5 supp.rect PRN Reason: Vomiting Referrals: ANN MARIE CUELLO MD [Staff Physician] - 3-5 Days Time of Disposition: 13:19
[2020-10-01] MEDS: HYDROmorphone 1 MG/1 ML INJ IV ONE ×2 (09:53→12:57)
[2020-10-01 12:39] LABS: Bilirubin,Urine NEG (Negative); Blood,Urine NEG (Negative); Color,Urine Straw (Yellow); Protein,Urine <15 mg/dL mg/dL (Negative); Urobilinogen,Urine < 2.0 mg/dL (<2.0)
[2020-10-01] MEDS ORDERED: HYDROmorphone 1 MG/1 ML INJ ONE (12:45)
[2020-10-01 14:48] VITALS: BP 118/76
== END 2020-10-01 13:50 | disposition home or self-care (01) ==
LOC: ED 04:11
DX: R10.84 Generalized abdominal pain (principal); R11.2 Nausea with vomiting, unspecified; I10 Essential (primary) hypertension; K21.9 Gastro-esophageal reflux disease without esophagitis; J45.909 Unspecified asthma, uncomplicated; F12.10 Cannabis abuse, uncomplicated; Z87.891 Personal history of nicotine dependence; Z90.49 Acquired absence of other specified parts of digestive tract; Z98.890 Other specified postprocedural states; Z79.899 Other long term (current) drug therapy; Z88.8 Allergy status to other drugs, medicaments and biological substances
CPT/HCPCS: 36415; 80053; 81001; 85025; 96374; 96375; 96376; 99284; J1170; J1200; J2270; J2405; 85007

== ENCOUNTER 2020-10-08 17:18 | Emergency (ER) | payer MEDICAID ==
--- NOTE | 2020-10-08 19:32 | Event Note ---
ED Screening Note Date of service: 10/08/20 Time: 19:32 ED Screening Note: 45-year-old female patient with history of metastatic cancer, gastroparesis, irritable bowel syndrome, chronic pancreatitis, pyelonephritis, small bowel obstruction, and bowel dissection presents to the emergency department with complaints of fever, abdominal pain/distention, and blood in stool starting 2 days ago. Patient is scheduled to see her health sanitarian on October 21. Temperature at home was 103 approximately eight hours ago; took Motrin earlier today. General: Awake, appropriately interactive, no acute distress. Neck: Supple. Full range of motion intact. Cardiovascular: Normal peripheral perfusion. Pulmonary: No respiratory distress. Patient is speaking normally without use of accessory muscles. Skin: No apparent rashes or lesions. Neurological: No facial asymmetry. Speech is clear. Follows commands. Patient is alert and oriented. Musculoskeletal: Moves all four extremities spontaneously with normal range of motion. Psych: Cooperative. Appropriate mood and affect. I have greeted and performed a focused rapid initial assessment of this patient. A comprehensive ED assessment and evaluation of the patient, analysis of all test results, and completion of the medical decision-making process will be conducted by additional ED providers. This initial assessment/diagnostic orders/clinical plan/treatment(s) is/are subject to change based on patients health status, clinical progression and re-assessment. Further treatment and workup at subsequent clinical provider's discretion. Patient/guardian urged not to elope from the ED as their condition may be serious if not clinically ass essed and managed.
[2020-10-08] MEDS ORDERED: HYDROmorphone 1 MG/1 ML INJ IV ONE (22:33)
--- NOTE | 2020-10-08 22:33 | Emergency Department Report ---
HPI - General Chief Complaint: GI Bleed Time Seen by Provider: 10/08/20 22:19 - HPI HPI: This is a 45-year-old -[place] female presents to the emergency department with complaint of abdominal pain and distention, nausea with vomiting, and one episode this morning of blood in her stools. The patient says "I think I have colitis or an obstruction." Patient has a history of gastroparesis, chronic pancreatitis, hypertension, previous ovarian cancer, IBS, and previous small bowel obstruction. She has a surgical history of a fistula repair, bowel resection secondary to SBO and a hysterectomy. She has a right- sided chest port. Patient has an appointment with her senior application software engineer, Dr. Levy, on the . She denies any fever, dysuria, diarrhea, chest pain, shortness of breath. She has not taken anything for symptoms prior to presentation. Patient was here about 1 week ago with similar symptoms. She rates her abdominal pain at a 9 out of 10 in intensity. No known aggravating or alleviating factors. ED Past Medical Hx - Past Medical History Previous Medical History?: Yes Hx Hypertension: Yes Hx GERD: Yes (Gastroparesis, Chronic Pancreatitis) Hx Renal Disease: Yes (renal failure- now in remission) Hx Kidney Stones: Yes Hx Asthma: Yes Additional medical history: ovarian/lung ca, gastroparesis, IBS, chronic panc reatitis, anemia. (LYMPHOMA LUNG), pyelonephritis, herpes, Small bowel obstruction,. PORT RIGHT CHEST - Surgical History Hx Cholecystectomy: Yes Additional Surgical History: fistula repair, lower bowel dissection, stents (in/out), hysterectomy 2007. Power port - Social History Smoking Status: Former Smoker Substance Use Type: Marijuana - Medications Home Medications: Home Medications Medication Instructions Recorded Confirmed Last Taken Type Ondansetron (Nf) [Zofran TAB] 8 mg PO Q8HR PRN #14 tablet 11/14/18 Unknown Rx Pantoprazole [Protonix TAB] 40 mg PO QDAY #14 tablet 11/14/18 Unknown Rx traMADoL [Ultram 50 MG tab] 50 mg PO Q6HR PRN #10 tablet 10/27/19 Unknown Rx HYDROcodone/APAP 7.5-325 [Caret 1 each PO Q6HR PRN #15 tablet 12/27/19 Unknown Rx 7.5/325] Ondansetron [Zofran Odt] 4 mg PO Q4HR PRN #20 tab.rapdis 12/27/19 Unknown Rx Promethazine [Phenergan TAB] 25 mg PO Q6HR PRN #20 tab 12/27/19 Unknown Rx metroNIDAZOLE [Flagyl] 500 mg PO Q12HR #14 tab 01/10/20 Unknown Rx Promethazine [Phenergan] 25 mg PO Q6HR PRN #20 tab 02/26/20 Unknown Rx traMADoL [Ultram] 50 mg PO Q6HR PRN #10 tablet 02/26/20 Unknown Rx Diphenoxylate/Atropine [Lomotil] 1 - 2 tab PO QID PRN #20 tablet 04/13/20 Unknown Rx HYDROcodone/APAP 5-325 [Caret 1 - 2 each PO Q6HR PRN #10 tablet 04/13/20 Unknown Rx 5/325] Dicyclomine [Bentyl] 20 mg PO QID PRN #20 tablet 05/12/20 Unknown Rx Promethazine [Phenergan] 25 mg PO Q6HR PRN #20 tab 05/22/20 Unknown Rx HYDROcodone/APAP 5-325 [Caret 1 - 2 each PO Q6HR PRN #5 tablet 06/10/20 Unknown Rx 5/325] Promethazine [Phenergan] 25 mg PO Q6HR PRN #20 tab 06/10/20 Unknown Rx Sulfamethoxazole/Trimethoprim 1 each PO BID #6 tablet 06/10/20 Unknown Rx [Bactrim DS TAB] Ciprofloxacin HCl 500 mg PO BID 10 Days #20 tablet 06/26/20 Unknown Rx Promethazine [Phenergan SUPPOS] 25 mg ME Q6HR PRN #15 supp.rect 06/26/20 Unknown Rx Promethazine [Phenergan] 25 mg PO Q6HR PRN #20 tab 06/26/20 Unknown Rx Dicyclomine [Bentyl] 20 mg PO Q6H PRN #30 tablet 07/25/20 Unknown Rx Famotidine [Pepcid] 20 mg PO Q12H #60 tablet 07/25/20 Unknown Rx Promethazine HCl [Phenergan SUPPOS] 25 mg RC BID #10 supp.rect 07/25/20 Unknown Rx Promethazine [Phenergan] 25 mg PO Q6HR PRN #20 tab 07/25/20 Unknown Rx Dicyclomine [Bentyl] 20 mg PO QID PRN #20 tablet 09/01/20 Unknown Rx Promethazine [Phenergan SUPPOS] 25 mg ME Q6HR PRN #20 supp.rect 09/01/20 Unknown Rx traMADoL [Ultram] 50 mg PO Q6HR PRN #7 tablet 09/01/20 Unknown Rx oxyCODONE /ACETAMINOPHEN [Percocet 1 tab PO Q6H PRN #12 tablet 09/11/20 Unknown Rx 5/325 mg] Hyoscyamine Subl [Levsin Sl 0.125 0.125 mg PO Q4HR #20 tablet 09/21/20 Unknown Rx TAB] Promethazine [Phenergan] 25 mg PO Q6HR PRN #20 tab 09/21/20 Unknown Rx traMADoL [Ultram 50 MG tab] 50 mg PO Q6HR PRN #12 tablet 09/21/20 Unknown Rx Gabapentin 100 mg PO Q8HR #12 capsule 10/01/20 Unknown Rx HYDROcodone/APAP 5-325 [Caret 1 - 2 each PO Q6HR PRN #10 tablet 10/01/20 Unkno wn Rx 5/325] Promethazine [Phenergan] 25 mg PO Q6HR PRN #20 tab 10/01/20 Unknown Rx Promethazine [Phenergan] 25 mg ME Q6HR PRN #5 supp.rect 10/01/20 Unknown Rx ED Review of Systems ROS: Stated complaint: BLOODY STOOL Other details as noted in HPI Comment: All other systems reviewed and negative Constitutional: denies: chills, fever Eyes: denies: eye pain, vision change ENT: denies: ear pain, throat pain Respiratory: denies: cough, shortness of breath Cardiovascular: denies: chest pain, palpitations Gastrointestinal: abdominal pain, nausea, vomiting, hematochezia Genitourinary: denies: dysuria, discharge Musculoskeletal: denies: back pain, arthralgia Skin: denies: rash, lesions Neurological: denies: headache, weakness Physical Exam - Physical Exam Vital Signs: Vital Signs 10/08/20 18:11 Temperature 98.6 F Pulse Rate 84 Respiratory 18 Rate Blood Pressure 121/81 [Right] O2 Sat by Pulse 100 Oximetry Physical Exam: GENERAL: The patient is well-developed well-nourished. HENT: Normocephalic. Atraumatic. Patient has moist mucous membranes. EYES: Extraocular motions are intact. NECK: Supple. Trachea is midline. CHEST/LUNGS: Clear to auscultation. There is no respiratory distress noted. HEART/CARDIOVASCULAR: Regular. There is no tachycardia. There is no murmur. ABDOMEN: Abdomen is soft. Generalized abdominal tenderness to palpation. No guarding. Patient has normal bowel sounds. There is no abdominal distention. SKIN: Skin is warm and dry. NEURO: The patient is awake, alert, and oriented. The patient is cooperative. The patient has no focal neurologic deficits. Normal speech. MUSCULOSKELETAL: There is no tenderness or deformity. There is no limitation range of motion. ED Course Vital Signs 10/08/20 18:11 Temperature 98.6 F Pulse Rate 84 Respiratory 18 Rate Blood Pressure 121/81 [Right] O2 Sat by Pulse 100 Oximetry ED Medical Decision Making - Lab Data Result diagrams: 10/08/20 23:11 10/08/20 23:11 Lab Results 10/08/20 10/08/20 10/08/20 Range/Units 23:11 23:11 23:11 WBC 6.6 (4.5-11.0) K/mm3 RBC 3.98 (3.65-5.03) M/mm3 Hgb 11.0 (10.1-14.3) gm/dl Hct 33.7 (30.3-42.9) % MCV 85 (79-97) fl MCH 28 (28-32) pg MCHC 33 (30-34) % RDW 15.4 H (13.2-15.2) % Plt Count 200 (140-440) K/mm3 Lymph % (Auto) Assistant Real Estate Manager Add Manual Diff Complete Total Counted 100 Seg Neuts % (Manual) 36.0 L (40.0-70.0) % Lymphocytes % (Manual) 53.0 H (13.4-35.0) % Monocytes % (Manual) 9.0 H (0.0-7.3) % Eosinophils % (Manual) 1.0 (0.0-4.3) % Basophils % (Manual) 1.0 (0.0-1.8) % Nucleated RBC % Not Reportable Seg Neutrophils # Man 2.4 (1.8-7.7) K/mm3 Band Neutrophils # 0.0 K/mm3 Lymphocytes # (Manual) 3.5 (1.2-5.4) K/mm3 Abs React Lymphs (Man) 0.0 K/mm3 Monocytes # (Manual) 0.6 (0.0-0.8) K/mm3 Eosinophils # (Manual) 0.1 (0.0-0.4) K/mm3 Basophils # (Manual) 0.1 (0.0-0.1) K/mm3 Metamyelocytes # 0.0 K/mm3 Myelocytes # 0.0 K/mm3 Promyelocytes # 0.0 K/mm3 Blast Cells # 0.0 K/mm3 WBC Morphology Not Reportable Hypersegmented Neuts Not Reportable Hyposegmented Neuts Not Reportable Hypogranular Neuts Not Reportable Smudge Cells Not Reportable Toxic Granulation Not Reportable Toxic Vacuolation Not Reportable Dohle Bodies Not Reportable Pelger-Huet Anomaly Not Reportable Andres Rods Not Reportable Platelet Estimate Not Reportable Clumped Platelets Not Reportable Plt Clumps, EDTA Not Reportable Large Platelets Not Reportable Giant Platelets Not Reportable Platelet Satelliting Not Reportable Plt Morphology Comment Not Reportable RBC Morphology Not Reportable Dimorphic RBCs Not Reportable Polychromasia Not Reportable Hypochromasia Not Reportable Poikilocytosis 1+ Anisocytosis 1+ Microcytosis Not Reportable Macrocytosis Not Reportable Spherocytes Not Reportable Pappenheimer Bodies Not Reportable Sickle Cells Not Reportable Target Cells Not Reportable Tear Drop Cells Not Reportable Ovalocytes Not Reportable Helmet Cells Not Reportable [place] Bodies Not Reportable [place] Rings Not Reportable [place] Cells 1+ Bite Cells Not Reportable Crenated Cell Not Reportable Elliptocytes Not Reportable Acanthocytes (Spur) Few Rouleaux Not Reportable Hemoglobin C Crystals Not Reportable Schistocytes Not Reportable Malaria parasites Not Reportable Sadi Bodies Not Reportable Hem Pathologist Commnt No PT 13.5 (12.2-14.9) Sec. INR 0.98 (0.87-1.13) APTT 31.5 (24.2-36.6) Sec. Sodium 143 (137-145) mmol/L Potassium 4.1 (3.6-5.0) mmol/L Chloride 104.6 (98-107) mmol/L Carbon Dioxide 27 (22-30) mmol/L Anion Gap 16 mmol/L BUN 7 (7-17) mg/dL Creatinine 0.6 (0.6-1.2) mg/dL Estimated GFR > 60 ml/min BUN/Creatinine Ratio 12 % Glucose 80 (65-100) mg/dL Calcium 9.1 (8.4-10.2) mg/dL Magnesium 2.00 (1.7-2.3) mg/dL Total Bilirubin 0.20 (0.1-1.2) mg/dL AST 48 H (5-40) units/L ALT 16 (7-56) units/L Alkaline Phosphatase 78 (35-129) units/L Total Protein 6.8 (6.3-8.2) g/dL Albumin 4.5 (3.9-5) g/dL Albumin/Globulin Ratio 2.0 % Lipase 67 H (13-60) units/L Urine Color (Yellow) Urine Turbidity (Clear) Urine pH (5.0-7.0) Ur Specific [place] (1.003-1.030) Urine Protein (Negative) mg/dL Urine Glucose (UA) (Negative) mg/dL Urine Ketones (Negative) mg/dL Urine Blood (Negative) Urine Nitrite (Negative) Urine Bilirubin (Negative) Urine Urobilinogen (<2.0) mg/dL Ur Leukocyte Esterase (Negative) Urine WBC (Auto) (0.0-6.0) /HPF Urine RBC (Auto) (0.0-6.0) /HPF U Epithel Cells (Auto) (0-13.0) /HPF Urine Bacteria (Auto) (Negative) /HPF Urine Mucus /HPF 10/08/20 Range/Units Unknown WBC (4.5-11.0) K/mm3 RBC (3.65-5.03) M/mm3 Hgb (10.1-14.3) gm/dl Hct (30.3-42.9) % MCV (79-97) fl MCH (28-32) pg MCHC (30-34) % RDW (13.2-15.2) % Plt Count (140-440) K/mm3 Lymph % (Auto) Add Manual Diff Total Counted Seg Neuts % (Manual) (40.0-70.0) % Lymphocytes % (Manual) (13.4-35.0) % Monocytes % (Manual) (0.0-7.3) % Eosinophils % (Manual) (0.0-4.3) % Basophils % (Manual) (0.0-1.8) % Nucleated RBC % Seg Neutrophils # Man (1.8-7.7) K/mm3 Band Neutrophils # K/mm3 Lymphocytes # (Manual) (1.2-5.4) K/mm3 Abs React Lymphs (Man) K/mm3 Monocytes # (Manual) (0.0-0.8) K/mm3 Eosinophils # (Manual) (0.0-0.4) K/mm3 Basophils # (Manual) (0.0-0.1) K/mm3 Metamyelocytes # K/mm3 Myelocytes # K/mm3 Promyelocytes # K/mm3 Blast Cells # K/mm3 WBC Morphology Hypersegmented Neuts Hyposegmented Neuts Hypogranular Neuts Smudge Cells Toxic Granulation Toxic Vacuolation Dohle Bodies Pelger-Huet Anomaly Andres Rods Platelet Estimate Clumped Platelets Plt Clumps, EDTA Large Platelets Giant Platelets Platelet Satelliting Plt Morphology Comment RBC Morphology Dimorphic RBCs Polychromasia Hypochromasia Poikilocytosis Anisocytosis Microcytosis Macrocytosis Spherocytes Pappenheimer Bodies Sickle Cells Target Cells Tear Drop Cells Ovalocytes Helmet Cells [place] Bodies [place] Rings [place] Cells Bite Cells Crenated Cell Elliptocytes Acanthocytes (Spur) Rouleaux Hemoglobin C Crystals Schistocytes Malaria parasites Sadi Bodies Hem Pathologist Commnt PT (12.2-14.9) Sec. INR (0.87-1.13) APTT (24.2-36.6) Sec. Sodium (137-145) mmol/L Potassium (3.6-5.0) mmol/L Chloride (98-107) mmol/L Carbon Dioxide (22-30) mmol/L Anion Gap mmol/L BUN (7-17) mg/dL Creatinine (0.6-1.2) mg/dL Estimated GFR ml/min BUN/Creatinine Ratio % Glucose (65-100) mg/dL Calcium (8.4-10.2) mg/dL Magnesium (1.7-2.3) mg/dL Total Bilirubin (0.1-1.2) mg/dL AST (5-40) units/L ALT (7-56) units/L Alkaline Phosphatase (35-129) units/L Total Protein (6.3-8.2) g/dL Albumin (3.9-5) g/dL Albumin/Globulin Ratio % Lipase (13-60) units/L Urine Color Yellow (Yellow) Urine Turbidity Slightly-cloudy (Clear) Urine pH 8.0 H (5.0-7.0) Ur Specific [place] 1.020 (1.003-1.030) Urine Protein <15 mg/dl (Negative) mg/dL Urine Glucose (UA) Neg (Negative) mg/dL Urine Ketones Neg (Negative) mg/dL Urine Blood Neg (Negative) Urine Nitrite Neg (Negative) Urine Bilirubin Neg (Negative) Urine Urobilinogen < 2.0 (<2.0) mg/dL Ur Leukocyte Esterase Neg (Negative) Urine WBC (Auto) 7.0 H (0.0-6.0) /HPF Urine RBC (Auto) 9.0 (0.0-6.0) /HPF U Epithel Cells (Auto) 3.0 (0-13.0) /HPF Urine Bacteria (Auto) 1+ (Negative) /HPF Urine Mucus Few /HPF - Radiology Data Radiology results: image reviewed interpreted by me: Chest x-ray does not show any acute process. There are no pleural effusions, obvious pneumonia and there is no pneumothorax. No significant cardiomegaly. No widened mediastinum. Abdominal x-ray shows nonspecific nonobstructive bowel gas. No free air. - Medical Decision Making This patient presents with generalized abdominal pain and some nausea without vomiting. There is reproducible abdominal tenderness to palpation, but the abdomen is soft, nondistended and nontoxic in appearance. The patient's labs have been mostly unremarkable including CBC, metabolic panel, except for some very mild elevation in her lipase level. She was given a few doses of IV analgesia with improvement of her pain. Acute abdominal series did not show any signs of obstruction, air-fluid levels, or any free air. She had a CT scan of the abdomen and pelvis less than 1 month ago that did not show any acute process. She has good outpatient follow-up with her senior application software engineer, Dr. Levy, in about 10 days. I checked the [employer] prescription monitoring system and the patient has filled narcotic pain medication from a different providers in the past 3 months. She was able to pass an oral challenge. Vital signs have been reassuring throughout her ED course. She will be discharged home to follow-up with her primary care physician and senior application software engineer. Critical Care Time: No Critical care attestation.: If time is entered above; I have spent that time in minutes in the direct care of this critically ill patient, excluding procedure time. ED Disposition Clinical Impression: History of chronic pancreatitis Abdominal pain Qualifiers: Abdominal location: unspecified location Qualified Code(s): R10.9 - Unspecified abdominal pain Disposition: TO HOME OR SELFCARE Is pt being admited?: No Condition: Stable Instructions: Abdominal Pain, Adult Additional Instructions: Please follow-up with your primary care physician and senior application software engineer in the next few days. Please avoid any alcohol use, excessive caffeine intake, fried foods, red meat, dairy products. Return to the emergency department with any worsening of your symptoms, new or concerning symptoms not addressed during this current emergency department visit, or with any acute distress. Referrals: PRIMARY MD NISH [Primary Care Provider] - 3-5 Days ANN MARIE LEVY MD [Staff Physician] - 3-5 Days Forms: Accompanied Note Time of Disposition: 01:48
[2020-10-08] MEDS ORDERED: ONDANSETRON 4 MG/2 ML INJ IV ONE (22:34)
[2020-10-08] MEDS ORDERED: diphenhydrAMINE 50 MG/ML VIAL IV ONE (22:34)
[2020-10-08] MEDS ORDERED: SODIUM CHLORIDE 0.9% 1000 ML 1,000 ML IV ONE (22:34)
[2020-10-08 23:45] LABS: Hematocrit 33.7 % (30.3-42.9); Mean Corpuscular HGB Conc 33 % (30-34); Mean Corpuscular Volume 85 fl (79-97); Platelet Count 200 K/mm3 (140-440); Red Blood Count 3.98 M/mm3 (3.65-5.03); Red Cell Distribution Width 15.4 % (13.2-15.2)
[2020-10-08 23:53] LABS: Bacteria,Urine 1+ /HPF (Negative); Bilirubin,Urine NEG (Negative); Blood,Urine NEG (Negative); Color,Urine Yellow (Yellow); Mucus,Urine FEW /HPF; Protein,Urine <15 mg/dL mg/dL (Negative); Urobilinogen,Urine < 2.0 mg/dL (<2.0)
[2020-10-08 23:57] LABS: INR 0.98 (0.87-1.13)
[2020-10-08 23:58] LABS: Partial Thromboplastin Time 31.5 Sec. (24.2-36.6)
[2020-10-09 00:04] LABS: Alanine Aminotransferase 16 units/L (7-56); Albumin 4.5 g/dL (3.9-5); BUN/Creatinine Ratio 12; Blood Urea Nitrogen 7 mg/dL (7-17); Calcium 9.1 mg/dL (8.4-10.2); Hemolysis Index 5
[2020-10-09] MEDS ORDERED: HYDROmorphone 1 MG/1 ML INJ IV ONE ×2 (00:40→01:46)
[2020-10-09 01:36] LABS: Total Cells Counted 100
[2020-10-09 01:37] LABS: Anisocytosis 1+; Burr Cells 1+; Poikilocytosis 1+
[2020-10-09 01:42] VITALS: BP 139/88
--- NOTE | 2020-10-09 01:44 | XRay Report ---
ABDOMEN 3 VIEW(S) INCLUDING CHEST INDICATION / CLINICAL INFORMATION: Abd pain. COMPARISON: None available. FINDINGS: SUPPORT DEVICES: [id number] catheters tip in mid superior vena cava HEART / MEDIASTINUM: No significant abnormality. LUNGS / PLEURA: No significant pulmonary or pleural abnormality. No pneumothorax BOWEL: No dilated bowel. FREE AIR / EXTRALUMINAL GAS: None seen. CALCIFICATIONS: No significant abnormal calcifications. SKELETAL STRUCTURES: No significant abnormality. IMPRESSION: 1. No significant abnormality. Signer Name: Matthew Zamarripa MD Signed: 10/09/2020 1:39 AM Workstation Name: [id number]
== END 2020-10-09 02:39 | disposition home or self-care (01) ==
LOC: ED 17:18
DX: K86.1 Other chronic pancreatitis (principal); R10.9 Unspecified abdominal pain; I10 Essential (primary) hypertension; K21.9 Gastro-esophageal reflux disease without esophagitis; J45.909 Unspecified asthma, uncomplicated; F12.10 Cannabis abuse, uncomplicated; Z90.49 Acquired absence of other specified parts of digestive tract; Z87.891 Personal history of nicotine dependence; Z79.1 Long term (current) use of non-steroidal anti-inflammatories (NSAID); Z79.899 Other long term (current) drug therapy; Z88.8 Allergy status to other drugs, medicaments and biological substances
CPT/HCPCS: 36415; 74022; 80053; 81001; 83690; 83735; 85007; 85025; 85610; 85730; 96361; 96374; 96375; 96376; 99284; J1170; J1200; J2405; J7030

== ENCOUNTER 2020-10-26 14:34 | Emergency (ER) | payer MEDICAID ==
[2020-10-26] MEDS ORDERED: SODIUM CHLORIDE 0.9% 1000 ML 1,000 ML IV ONE ×2 (15:50→22:04)
--- NOTE | 2020-10-26 15:56 | Event Note ---
ED Screening Note Date of service: 10/26/20 Time: 15:52 ED Screening Note: 45-year-old female with history of multiple abdominal surgeries and chronic abdominal issues including small bowel obstruction and pancreatitis presents to the ER today with complaints of abdominal pain, nausea and vomiting and elevated lipase. She states that she went to see a GI specialist at [facility] for the first time this past Monday. She had lab work done and she was notified today that her pancreatic enzymes are elevated at 178. This initial assessment/diagnostic orders/clinical plan/treatment(s) is/are subject to change based on patients health status, clinical progression and re- assessment by fellow clinical providers in the ED. Further treatment and workup at subsequent clinical providers discretion. Patient/guardian urged not to elope from the ED as their condition may be serious if not clinically assessed and managed. Initial orders include: Abdominal pain order set
[2020-10-26] MEDS ORDERED: HYDROmorphone 1 MG/1 ML INJ IV ONE (21:22)
[2020-10-26] MEDS ORDERED: FAMOTIDINE 20 MG/2 ML INJ IV ONE (21:22)
[2020-10-26] MEDS ORDERED: diphenhydrAMINE 50 MG/ML VIAL IV ONE (21:22)
--- NOTE | 2020-10-26 21:24 | Emergency Department Report ---
ED General Adult HPI - General Chief complaint: Abdominal Pain Stated complaint: Abdominal pain, dental pain, elevated lipase PUI?: No Time Seen by Provider: 10/26/20 20:19 Source: patient, RN notes reviewed, old records reviewed Mode of arrival: Ambulatory Limitations: No Limitations - History of Present Illness Initial comments: During the entire history and physical examination, I am chaperoned by nurse Aileen Palomares The patient is a 45-year-old female. She has a history of chronic abdominal pain, chronic pancreatitis, chronic dentalgia. 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 Past surgical history is complicated, including total abdominal hysterectomy, BSO, possible complication with bladder fistula, history of SBO, history of potential bile leak, with biliary stent. She also has a history of chronic abdominal pain. The patient presents to the ER with a few complaints. Her first complaint is chronic dentalgia, over her left maxillary posterior teeth, where 1718, 19 would be. She has had an extraction, a while back, but reports chronic nerve related pain. She has chronic sensitivity to hot and cold. She has no trismus or stridor. She reports a fever to 102 degrees a few days ago, and is not quite sure if this is related to dental pain. She does not have maxillary or frontal sinus pain. There is no severe headache. There is no neck pain. There is no chest pain. She also complains of acute on chronic abdominal pain. Her abdominal pain is in the epigastric region, and moves down to her right lower quadrant and then to her back. 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 However, she reports that she has a chronically elevated lipase, and believes that her outpatient value was somewhere around 1 60-1 70. However, she states that this is her baseline. She reports her pain is typically improved with pain medicine, such as hydromorphone, Benadryl, and Zofran, which she states she is able to tolerate after receiving intravenousBenadryl. The patient denies headache, neck pain, chest pain, urinary symptoms, focal extremity weakness/numbness. -: Gradual, days(s) Location: mouth, abdomen Radiation: back, abdomen Quality: aching Consistency: constant Improves with: medication Worsens with: movement - Related Data Previous Rx's Medication Instructions Recorded Last Taken Type Ondansetron (Nf) [Zofran TAB] 8 mg PO Q8HR PRN #14 tablet 11/14/18 Unknown Rx Pantoprazole [Protonix TAB] 40 mg PO QDAY #14 tablet 11/14/18 Unknown Rx Ondansetron [Zofran Odt] 4 mg PO Q4HR PRN #20 tab.rapdis 12/27/19 Unknown Rx Promethazine [Phenergan TAB] 25 mg PO Q6HR PRN #20 tab 12/27/19 Unknown Rx Promethazine [Phenergan] 25 mg PO Q6HR PRN #20 tab 02/26/20 Unknown Rx Diphenoxylate/Atropine [Lomotil] 1 - 2 tab PO QID PRN #20 tablet 04/13/20 Unknown Rx Dicyclomine [Bentyl] 20 mg PO QID PRN #20 tablet 05/12/20 Unknown Rx Promethazine [Phenergan] 25 mg PO Q6HR PRN #20 tab 05/22/20 Unknown Rx Promethazine [Phenergan] 25 mg PO Q6HR PRN #20 tab 06/10/20 Unknown Rx Promethazine [Phenergan] 25 mg PO Q6HR PRN #20 tab 06/26/20 Unknown Rx Dicyclomine [Bentyl] 20 mg PO Q6H PRN #30 tablet 07/25/20 Unknown Rx Famotidine [Pepcid] 20 mg PO Q12H #60 tablet 07/25/20 Unknown Rx Promethazine HCl [Phenergan SUPPOS] 25 mg RC BID #10 supp.rect 07/25/20 Unknown Rx Promethazine [Phenergan] 25 mg PO Q6HR PRN #20 tab 07/25/20 Unknown Rx Dicyclomine [Bentyl] 20 mg PO QID PRN #20 tablet 09/01/20 Unknown Rx Promethazine [Phenergan SUPPOS] 25 mg CO Q6HR PRN #20 supp.rect 09/01/20 Unknown Rx Hyoscyamine Subl [Levsin Sl 0.125 0.125 mg PO Q4HR #20 tablet 09/21/20 Unknown Rx TAB] Promethazine [Phenergan] 25 mg PO Q6HR PRN #20 tab 09/21/20 Unknown Rx Gabapentin 100 mg PO Q8HR #12 capsule 10/01/20 Unknown Rx Promethazine [Phenergan] 25 mg PO Q6HR PRN #20 tab 10/01/20 Unknown Rx Promethazine [Phenergan] 25 mg CO Q6HR PRN #5 supp.rect 10/01/20 Unknown Rx Chlorhexidine Mouthwash [Peridex] 15 ml MM BID #1 bottle 10/26/20 Unknown Rx Elina Root [Elina] 250 mg PO QID PRN #30 capsule 10/26/20 Unknown Rx Promethazine [Phenergan SUPPOS] 25 mg CO Q6HR PRN #15 supp.rect 10/26/20 Unknown Rx Acetaminophen [Non-Aspirin Extra 500 mg PO Q6HR PRN #30 tablet 10/27/20 Unknown Rx Strength] Allergies Allergy/AdvReac Type Severity Reaction Status Date / Time codeine Allergy Itching Verified 09/01/20 09:54 fentanyl Allergy Hives Verified 09/01/20 09:54 ketorolac tromethamine Allergy Itching Verified 09/01/20 09:54 [From Toradol] metoclopramide HCl Allergy Hives Verified 09/01/20 09:54 [From Reglan] morphine Allergy Hives Verified 09/01/20 09:54 ondansetron HCl [From Zofran] Allergy Hives Verified 09/01/20 09:54 prochlorperazine edisylate Allergy Hives Verified 09/01/20 09:54 [From Compazine] prochlorperazine maleate Allergy Hives Verified 09/01/20 09:54 [From Compazine] ED Review of Systems ROS: Stated complaint: ELEVATED LIPASE, N/V, ABD PAIN, FEVER Other details as noted in HPI Constitutional: fever ENT: dental pain. denies: throat pain Respiratory: denies: cough Cardiovascular: denies: chest pain Gastrointestinal: abdominal pain, nausea, vomiting Genitourinary: denies: dysuria Musculoskeletal: back pain Neurological: weakness Psychiatric: anxiety Hematological/Lymphatic: denies: easy bleeding ED Past Medical Hx - Past Medical History Previous Medical History?: Yes Hx Hypertension: Yes Hx GERD: Yes (Gastroparesis, Chronic Pancreatitis) Hx Renal Disease: Yes (renal failure- now in remission) Hx Kidney Stones: Yes Hx Asthma: Yes Additional medical history: ovarian/lung ca, gastroparesis, IBS, chronic pancreatitis, anemia. (LYMPHOMA LUNG), pyelonephritis, herpes, Small bowel ob struction,. PORT RIGHT CHEST - Surgical History Past Surgical History?: Yes Hx Cholecystectomy: Yes Additional Surgical History: fistula repair, lower bowel dissection, stents (in/out), hysterectomy 2007. Power port - Social History Smoking Status: Former Smoker Substance Use Type: Marijuana - Medications Home Medications: Home Medications Medication Instructions Recorded Confirmed Last Taken Type Ondansetron (Nf) [Zofran TAB] 8 mg PO Q8HR PRN #14 tablet 11/14/18 Unknown Rx Pantoprazole [Protonix TAB] 40 mg PO QDAY #14 tablet 11/14/18 Unknown Rx Ondansetron [Zofran Odt] 4 mg PO Q4HR PRN #20 tab.rapdis 12/27/19 Unknown Rx Promethazine [Phenergan TAB] 25 mg PO Q6HR PRN #20 tab 12/27/19 Unknown Rx Promethazine [Phenergan] 25 mg PO Q6HR PRN #20 tab 02/26/20 Unknown Rx Diphenoxylate/Atropine [Lomotil] 1 - 2 tab PO QID PRN #20 tablet 04/13/20 Unknown Rx Dicyclomine [Bentyl] 20 mg PO QID PRN #20 tablet 05/12/20 Unknown Rx Promethazine [Phenergan] 25 mg PO Q6HR PRN #20 tab 05/22/20 Unknown Rx Promethazine [Phenergan] 25 mg PO Q6HR PRN #20 tab 06/10/20 Unknown Rx Promethazine [Phenergan] 25 mg PO Q6HR PRN #20 tab 06/26/20 Unknown Rx Dicyclomine [Bentyl] 20 mg PO Q6H PRN #30 tablet 07/25/20 Unknown Rx Famotidine [Pepcid] 20 mg PO Q12H #60 tablet 07/25/20 Unknown Rx Promethazine HCl [Phenergan SUPPOS] 25 mg RC BID #10 supp.rect 07/25/20 Unknown Rx Promethazine [Phenergan] 25 mg PO Q6HR PRN #20 tab 07/25/20 Unknown Rx Dicyclomine [Bentyl] 20 mg PO QID PRN #20 tablet 09/01/20 Unknown Rx Promethazine [Phenergan SUPPOS] 25 mg CO Q6HR PRN #20 supp.rect 09/01/20 Unknown Rx Hyoscyamine Subl [Levsin Sl 0.125 0.125 mg PO Q4HR #20 tablet 09/21/20 Unknown Rx TAB] Promethazine [Phenergan] 25 mg PO Q6HR PRN #20 tab 09/21/20 Unknown Rx Gabapentin 100 mg PO Q8HR #12 capsule 10/01/20 Unknown Rx Promethazine [Phenergan] 25 mg PO Q6HR PRN #20 tab 10/01/20 Unknown Rx Promethazine [Phenergan] 25 mg CO Q6HR PRN #5 supp.rect 10/01/20 Unknown Rx Chlorhexidine Mouthwash [Peridex] 15 ml MM BID #1 bottle 10/26/20 Unknown Rx Elina Root [Elina] 250 mg PO QID PRN #30 capsule 10/26/20 Unknown Rx Promethazine [Phenergan SUPPOS] 25 mg CO Q6HR PRN #15 supp.rect 10/26/20 Unknown Rx Acetaminophen [Non-Aspirin Extra 500 mg PO Q6HR PRN #30 tablet 10/27/20 Unknown Rx Strength] ED Physical Exam - General Limitations: No Limitations General appearance: alert, anxious, in distress - Head Head exam: Present: atraumatic, normocephalic - Eye Eye exam: Present: normal appearance, EOMI. Absent: nystagmus - ENT ENT exam: Present: normal exam, normal orophraynx, mucous membranes moist, normal external ear exam, other (There is no stridor. There is no elevation of the base of the tongue. There is no gingival abscess. There is no gingival erythema. Well-healed extraction sites on teeth 17, 18 and 19.) - Neck Neck exam: Present: normal inspection, full ROM. Absent: tenderness, meningismus - Respiratory Respiratory exam: Present: normal lung sounds bilaterally. Absent: respiratory distress, wheezes, rales, rhonchi, stridor, decreased breath sounds - Cardiovascular Cardiovascular Exam: Present: regular rate, normal rhythm, normal heart sounds. Absent: bradycardia, tachycardia, irregular rhythm, systolic murmur, diastolic murmur, rubs, gallop - GI/Abdominal GI/Abdominal exam: Present: soft, tenderness, other (There is mild diffuse abd ominal tenderness to deep palpation.). Absent: distended, guarding, rebound, rigid, pulsatile mass - Extremities Exam Extremities exam: Present: normal inspection, full ROM, other (2+ pulses noted in the bilateral upper and lower extremities. There is no palpable cord. negative Homans sign. Muscular compartments are soft. The pelvis is stable.). Absent: pedal edema, calf tenderness - Back Exam Back exam: Present: normal inspection, full ROM. Absent: tenderness, CVA tenderness (R), CVA tenderness (L), paraspinal tenderness, vertebral tenderness - Neurological Exam Neurological exam: Present: alert, oriented X3, other (No facial droop. Tongue midline. Extraocular movements intact bilaterally. Facial sensation intact to light touch in V1, V2, V3 distribution bilaterally. 5 and a 5 strength in 4 extremities. Sensation intact to light touch in 4 extremities.). Absent: motor sensory deficit - Psychiatric Psychiatric exam: Present: anxious - Skin Skin exam: Present: warm, dry, intact, normal color. Absent: rash ED Course Vital Signs 10/26/20 10/26/20 10/26/20 15:04 20:46 21:00 Temperature 98.6 F Pulse Rate 91 H Respiratory 12 Rate Blood Pressure 117/86 142/65 140/80 Blood Pressure [Left] O2 Sat by Pulse 98 100 98 Oximetry 10/26/20 10/26/20 10/26/20 21:16 22:26 22:46 Temperature Pulse Rate Respiratory 18 Rate Blood Pressure 135/80 149/95 Blood Pressure [Left] O2 Sat by Pulse 100 100 Oximetry 10/26/20 10/26/20 10/26/20 22:56 23:00 23:09 Temperature Pulse Rate Respiratory 18 Rate Blood Pressure 146/96 146/96 Blood Pressure [Left] O2 Sat by Pulse 97 98 Oximetry 10/26/20 10/26/20 10/26/20 23:16 23:26 23:30 Temperature Pulse Rate Respiratory Rate Blood Pressure 153/98 145/94 145/94 Blood Pressure [Left] O2 Sat by Pulse 98 100 98 Oximetry 10/26/20 10/27/20 10/27/20 23:46 00:00 00:36 Temperature Pulse Rate Respiratory 18 Rate Blood Pressure 144/92 149/100 Blood Pressure [Left] O2 Sat by Pulse 100 99 Oximetry 10/27/20 10/27/20 10/27/20 01:06 01:50 01:52 Temperature 98.2 F Pulse Rate 70 Respiratory 18 18 Rate Blood Pressure 121/87 Blood Pressure 121/77 [Left] O2 Sat by Pulse 100 100 Oximetry 10/27/20 10/27/20 10/27/20 03:45 04:03 04:15 Temperature Pulse Rate Respiratory Rate Blood Pressure 121/87 121/87 121/87 Blood Pressure [Left] O2 Sat by Pulse Oximetry - Reevaluation(s) Reevaluation #1: 10/26/20 22:41 [place]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 10/19/2020 2 10/19/2020 ACETAMINOPHEN-COD #3 TABLET 12.0 3 MA FIS [id number] RICARDO ([id number]) 0 18.0 MME Medicaid [place] 10/01/2020 2 10/01/2020 HYDROCODONE-ACETAMIN 5-325 MG 10.0 3 JU ALI [id number] RICARDO ([id number]) 0 16.67 MME [place] 09/23/2020 2 09/23/2020 TRAMADOL HCL 50 MG TABLET 12.0 3 JA RICHTER [id number] RICARDO ([id number]) 0 20.0 [place] 09/14/2020 2 09/14/2020 TRAMADOL HCL 50 MG TABLET 14.0 7 AL ISK [id number] RICARDO ([id number]) 0 10.0 [place] 09/11/2020 2 09/11/2020 OXYCODONE-ACETAMINOPHEN 5-325 12.0 4 GE ROSITA [id number] RICARDO ([id number]) 0 22.5 MME Private Pay [place] 09/08/2020 3 09/07/2020 TRAMADOL HCL 50 MG TABLET 15.0 4 [facility] [id number] [facility] ([id number]) 0 18.75 MME [place] 09/01/2020 1 09/01/2020 TRAMADOL HCL 50 MG TABLET 7.0 1 TH GUN [id number] RICARDO ([id number]) 0 35.0 [place] 08/26/2020 2 08/26/2020 HYDROCODONE-ACETAMIN 5-325 MG 12.0 3 JA BAR [id number] RICARDO ([id number]) 0 20.0 [place] 08/05/2020 2 08/05/2020 HYDROCODONE-ACETAMIN 5-325 MG 12.0 3 PS ELIANA [id number] RICARDO ([id number]) 0 20.0 [place] 07/21/2020 2 07/21/2020 HYDROCODONE-ACETAMIN 5-325 MG 12.0 4 JA BAR [id number] RICARDO ([id number]) 0 15.0 [place] 07/09/2020 2 07/09/2020 HYDROCODONE-ACETAMIN 5-325 MG 12.0 3 CH DHRUV [id number] RICARDO ([id number]) 0 20.0 [place] 07/01/2020 2 07/01/2020 ACETAMINOPHEN-COD #3 TABLET 14.0 4 JA BAR [id number] RICARDO ([id number]) 0 15.75 [place] 06/26/2020 2 06/26/2020 OXYCODONE-ACETAMINOPHEN 5-325 12.0 6 GE ROSITA [id number] RICARDO ([id number]) 0 15.0 [place] 06/16/2020 2 06/16/2020 HYDROCODONE-ACETAMIN 5-325 MG 12.0 3 CH DHRUV [id number] RICARDO ([id number]) 0 20.0 [place] 06/10/2020 2 06/10/2020 HYDROCODONE-ACETAMIN 5-325 MG 5.0 2 JU ALI [id number] RICARDO ([id number]) 0 12.5 [place] 05/22/2020 2 05/22/2020 OXYCODONE-ACETAMINOPHEN 5-325 12.0 4 GE ROSITA [id number] RICARDO ([id number]) 0 22.5 [place] Reevaluation #2: 10/26/20 22:41 Differential diagnosis, including but not limited to: Chronic pancreatitis, chr onic dentalgia, narcotic bowel syndrome, cyclic vomiting syndrome, cannabinoid hyperemesis syndrome, obstruction, colitis, diverticulitis, chronic pancreatitis Assessment and plan: 45-year-old female, with acute on chronic abdominal pain and multiple complaints. Complaint #1, chronic dentalgia and fever a few days ago. Oral examination is unremarkable for acute pathology. Specifically, there is no evidence of imminent airway compromise, abscess, phlegmon, etc. The oral space appears to be well-healed, without active acute process. She may take liquid acetaminophen [id number], continue outpatient dental hygiene, follow-up with an outpatient dentist, and she can be given chlorhexidine. Complaint #2, acute on chronic abdominal pain. Patient has had multiple CT scans of the abdomen pelvis at this institution within the past few months, which have been negative for acute findings, and laboratory studies which were essentially nonactionable. I suspect that this is an exacerbation of the patient's chronic pain. The [place] prescription monitoring database was consulted, it appears that she has received multiple narcotic prescriptions from multiple providers within the past year. We will treat her acute symptoms here in the emergency room, but if no acute findings noted, discharged with nonnarcotic therapy, and instructions to follow-up as an outpatient. Low risk for major adverse cardiac event as per heart score. Not currently tachycardic, tachypneic or hypoxic, very unlikely to be acute coronary syndrome/coronary artery disease/thromboembolic/pulmonary embolism. 10/27/20 00:20 Patient is now retching. She has been given Benadryl and Zofran already. She has been here for a few hours. Offered her haloperidol which she declined. She states she can tolerate Reglan. She is also requesting additional pain medication, which we have ordered. 10/27/20 00:33 10/27/20 01:36 Final reassessment. No active vomiting. No active retching. CT scan abdomen pelvis negative for acute disease. Patient updated on findings. On my final reassessment, she is noted to be on her cellular phone, very engaged with [employer]. Patient counseled on significance of findings. Suitable to follow-up as an outpatient. ED Medical Decision Making - Lab Data Result diagrams: 10/26/20 22:15 10/26/20 22:15 Vital Signs 10/26/20 10/26/20 10/26/20 15:04 20:46 21:00 Temperature 98.6 F Pulse Rate 91 H Respiratory 12 Rate Blood Pressure 117/86 142/65 140/80 O2 Sat by Pulse 98 100 98 Oximetry 10/26/20 10/26/20 21:16 22:26 Temperature Pulse Rate Respiratory 18 Rate Blood Pressure 135/80 O2 Sat by Pulse 100 Oximetry Lab Results 10/26/20 10/26/20 10/26/20 Range/Units 22:05 22:15 22:15 Hgb 11.0 (10.1-14.3) gm/dl Hct 33.7 (30.3-42.9) % Plt Count 209 (140-440) K/mm3 Sodium 139 (137-145) mmol/L Potassium 4.1 (3.6-5.0) mmol/L Chloride 103.1 (98-107) mmol/L Carbon Dioxide 26 (22-30) mmol/L Anion Gap 14 mmol/L BUN 9 (7-17) mg/dL Creatinine 0.6 (0.6-1.2) mg/dL Estimated GFR > 60 ml/min BUN/Creatinine Ratio 15 % Glucose 89 (65-100) mg/dL Calcium 8.8 (8.4-10.2) mg/dL Magnesium (1.7-2.3) mg/dL Total Bilirubin 0.30 (0.1-1.2) mg/dL Direct Bilirubin < 0.2 (0-0.2) mg/dL Indirect Bilirubin 0.1 mg/dL AST 51 H (5-40) units/L ALT 21 (7-56) units/L Alkaline Phosphatase 75 (35-129) units/L Total Creatine Kinase (30-135) units/L Troponin T (0.00-0.029) ng/mL Total Protein 6.8 (6.3-8.2) g/dL Albumin 4.3 (3.9-5) g/dL Albumin/Globulin Ratio 1.7 % Urine Color Yellow (Yellow) Urine Turbidity Hazy (Clear) Urine pH 6.0 (5.0-7.0) Ur Specific [place] 1.019 (1.003-1.030) Urine Protein <15 mg/dl (Negative) mg/dL Urine Glucose (UA) Neg (Negative) mg/dL Urine Ketones Neg (Negative) mg/dL Urine Blood Sm (Negative) Urine Nitrite Neg (Negative) Urine Bilirubin Neg (Negative) Urine Urobilinogen < 2.0 (<2.0) mg/dL Ur Leukocyte Esterase Neg (Negative) Urine WBC (Auto) 7.0 H (0.0-6.0) /HPF Urine RBC (Auto) 7.0 (0.0-6.0) /HPF U Epithel Cells (Auto) 19.0 H (0-13.0) /HPF Urine Mucus Few /HPF 10/26/20 Range/Units 22:15 Hgb (10.1-14.3) gm/dl Hct (30.3-42.9) % Plt Count (140-440) K/mm3 Sodium (137-145) mmol/L Potassium (3.6-5.0) mmol/L Chloride (98-107) mmol/L Carbon Dioxide (22-30) mmol/L Anion Gap mmol/L BUN (7-17) mg/dL Creatinine (0.6-1.2) mg/dL Estimated GFR ml/min BUN/Creatinine Ratio % Glucose (65-100) mg/dL Calcium (8.4-10.2) mg/dL Magnesium 1.90 (1.7-2.3) mg/dL Total Bilirubin (0.1-1.2) mg/dL Direct Bilirubin (0-0.2) mg/dL Indirect Bilirubin mg/dL AST (5-40) units/L ALT (7-56) units/L Alkaline Phosphatase (35-129) units/L Total Creatine Kinase 96 (30-135) units/L Troponin T < 0.010 (0.00-0.029) ng/mL Total Protein (6.3-8.2) g/dL Albumin (3.9-5) g/dL Albumin/Globulin Ratio % Urine Color (Yellow) Urine Turbidity (Clear) Urine pH (5.0-7.0) Ur Specific [place] (1.003-1.030) Urine Protein (Negative) mg/dL Urine Glucose (UA) (Negative) mg/dL Urine Ketones (Negative) mg/dL Urine Blood (Negative) Urine Nitrite (Negative) Urine Bilirubin (Negative) Urine Urobilinogen (<2.0) mg/dL Ur Leukocyte Esterase (Negative) Urine WBC (Auto) (0.0-6.0) /HPF Urine RBC (Auto) (0.0-6.0) /HPF U Epithel Cells (Auto) (0-13.0) /HPF Urine Mucus /HPF - EKG Data -: EKG Interpreted by Wy EKG shows normal: sinus rhythm Rate: normal - EKG Data 10/26/20 22:36 EKG interpreted at 21: 29 Question ectopic atrial rhythm, P waves upright in aVR. Rate is 77 bpm. There is a normal axis. There is normal intervals. There is poor R wave progression. There is motion artifact. This is not a STEMI. With the exception of abnormal P wave axis, appears unchanged when compared to prior EKG from 12/27/2019. P waves are upright in aVR, this may be an ectopic atrial rhythm. - Radiology Data Radiology results: pending, report reviewed, image reviewed CT ABDOMEN AND PELVIS WITH CONTRAST INDICATION / CLINICAL INFORMATION: Patient complains of "Generalized" abdominal pain.. TECHNIQUE: Axial CT images were obtained through the abdomen and pelvis after 100 mL Omnipaque [address] scans at this location are performed using CT dose reduction for ALARA by means of automated exposure control. COMPARISON: CT abdomen pelvis 09/01/2020 FINDINGS: LOWER CHEST: No significant abnormality. LIVER: No significant abnor mality. BILIARY SYSTEM: Prior cholecystectomy. PANCREAS: No significant abnormality. SPLEEN: No significant abnormality. ADRENALS: No significant abnormality. KIDNEYS and URETERS: Unchanged small cysts. STOMACH / BOWEL: No significant abnormality. The appendix is normal. PERITONEUM: No free fluid. No free air. No fluid collection. LYMPH NODES: No significant adenopathy. VASCULAR STRUCTURES: No significant abnormality. URINARY BLADDER: No significant abnormality. REPRODUCTIVE ORGANS: Prior hysterectomy. ADDITIONAL FINDINGS: None. SKELETAL SYSTEM: No significant abnormality. IMPRESSION: 1. No acute process identified within the abdomen or pelvis to account for patient's abdominal pain. Signer Name: Estephania Jensen MD Signed: 09/11/2020 2:50 AM Workstation Name: [id number] CT ABDOMEN AND PELVIS WITH IV CONTRAST INDICATION: abd pain, vomiting. COMPARISON: CT 06/25/2020 TECHNIQUE: All CT scans at this facility use dose modulation, automated exposure control, iterative reconstruction or weight based dosing, when appropriate, to reduce radiation dose to as low as reasonably achievable. FINDINGS: Lung Bases: No significant abnormality. Skeletal System: No acute abnormality. ABDOMEN: Liver: No significant abnormality. Gallbladder: Removed. Bile Ducts: No significant abnormality. Pancreas: No significant abnormality. Spleen: No significant abnormality. Adrenals: No significant abnormality. Right Kidney: No significant abnormality. Stable small cyst. Left Kidney: No significant abnormality. Stable small cyst lower pole. Upper GI tract: No significant abnormality. Lymph Nodes: No significant adenopathy. Aorta: No significant abnormality. Additional Findings: No significant abnormality. PELVIS: Colon: No acute abnormality. Diverticulosis is noted. Urinary Bladder and Distal Ureters: No significant abnormality. Appendix: No significant abnormality. Lymph Nodes: No significant adenopathy. Additional Findings: None. IMPRESSION: 1. No acute process in the abdomen or pelvis. 2. Incidental findings, as above. Signer Name: Dimitris Ramos MD Signed: 09/01/2020 4:28 PM Workstation Name: [id number] CT ABDOMEN AND PELVIS WITH CONTRAST INDICATION: L.U.Q. and RIGHT sided flank pain. Pancreatitis vs Stone(s). TECHNIQUE: Axial CT images were obtained through the abdomen and pelvis after 100 cc Omni [address] scans at this location are performed using CT dose reduction for ALARA by means of automated exposure control. COMPARISON: CT abdomen and pelvis 06/10/2020 FINDINGS: LOWER CHEST: No significant abnormality. LIVER: No significant abnormality. GALLBLADDER: Surgically absent. BILE DUCTS: No significant abnormality. PANCREAS: No significant abnormality. SPLEEN: No significant abnormality. ADRENALS: No significant abnormality. RIGHT KIDNEY and URETER: Stable simple 1 cm right renal cyst. LEFT KIDNEY and URETER: No significant abnormality. STOMACH and SMALL BOWEL: No significant abnormality. COLON: Large amount of solid stool throughout colon. APPENDIX: Normal. PERITONEUM: No free fluid. No free air. No fluid collection. LYMPH NODES: No significant adenopathy. AORTA and ARTERIES: No significant abnormality. IVC and VEINS: No significant abnormality. URINARY BLADDER: No significant abnormality. REPRODUCTIVE ORGANS: No significant abnormality. ADDITIONAL FINDINGS: None. SKELETAL SYSTEM: No significant abnormality. IMPRESSION: 1. Constipation. 2. No acute inflammatory process or bowel obstruction. Signer Name: Kulwinder Bello MD Signed: 06/25/2020 10:42 PM Workstation Name: [id number] CT ABDOMEN AND PELVIS WITH CONTRAST HISTORY: Patient complains of abdominal pain with nausea and vomiting. COMPARISON: 09/11/2020 TECHNIQUE: CT images of the abdomen and pelvis were obtained following administration of intravenous contrast. All CT scans at this location are performed using CT dose reduction for ALARA by means of automated exposure control. CONTRAST: 100 ml of intravenous contrast administered. FINDINGS: Lungs/bones: Lung bases are clear Abdomen/pelvis: The liver, spleen, adrenal glands, pancreas appear normal. Portal vein is patent. Upper GI tract is unremarkable. Right renal cyst is again seen. No bowel obstruction is identified. Appendix appears normal. No dominant adenopathy in the abdomen or pelvis. No focal inflammatory changes identified. No acute bone findings are seen. Symmetric excretion from bilateral kidneys. Bilateral renal cysts. IMPRESSION: 1. Bilateral renal cysts. 2. No acute findings. Signer Name: Osvaldo Zamora MD Signed: 10/27/2020 12:28 AM Workstation Name: [id number] Critical care attestation.: If time is entered above; I have spent that time in minutes in the direct care of this critically ill patient, excluding procedure time. ED Disposition Clinical Impression: Abdominal pain, Dentalgia Disposition: - TO HOME OR SELFCARE Is pt being admited?: No Does the pt Need Aspirin: No Condition: Good Instructions: Abdominal Pain, Adult, Abdominal Pain (ED) Additional Instructions: Do not take metformin medication for the next 2 days, if patient takes medi cation. Do not take Motrin, ibuprofen, Naprosyn, Aleve, alcohol, tobacco, smoke products, cocaine, or any recreational substances. Please have a primary care doctor or silviculture teacher contact the medical records department to follow-up on nonemergent incidental findings. Recommend that patient discontinue/de-escalate narcotic prescriptions, as indicated, long-term consumption of narcotics may cause addiction, disability, and overdose, and paradoxical increase in pain, nausea, and vomiting. Patient may take the pain medication, nausea medications as needed and directed, please return to the emergency room right away with new pain, worsened pain, migration of pain, projectile vomiting, change in mental status, confusion, inability to tolerate liquid feeds, new, worsened or different symptoms not present on the initial emergency room evaluation. Recommend follow-up with your outpatient primary care doctor or silviculture teacher within the next 3 to 5 days. Recommend follow-up with your outpatient dentist within the next 5 to 7 days. Advance diet as tolerated. Prescriptions: Elina Root [Elina] 250 mg PO QID PRN #30 capsule PRN Reason: Nausea Acetaminophen [Non-Aspirin Extra Strength] 500 mg PO Q6HR PRN #30 tablet PRN Reason: Pain , Severe (7-10) Chlorhexidine Mouthwash [Peridex] 15 ml MM BID #1 bottle Promethazine [Phenergan SUPPOS] 25 mg CO Q6HR PRN #15 supp.rect PRN Reason: Nausea And Vomiting Referrals: DIOGENES PERKINS MD [Staff Physician] - 3-5 Days ANN MARIE CUELLO MD [Staff Physician] - 3-[address] [facility] [Outside] - 3-5 Days
[2020-10-26 21:57] LABS: Bilirubin,Urine NEG (Negative); Blood,Urine SM (Negative); Color,Urine Yellow (Yellow); Mucus,Urine FEW /HPF; Protein,Urine <15 mg/dL mg/dL (Negative); Urobilinogen,Urine < 2.0 mg/dL (<2.0)
[2020-10-26] MEDS ORDERED: ONDANSETRON 4 MG/2 ML INJ ONE (22:32)
[2020-10-26 22:34] LABS: Hematocrit 33.7 % (30.3-42.9)
[2020-10-26] MEDS ORDERED: ONDANSETRON 4 MG/2 ML INJ IV ONE (22:36)
[2020-10-26 22:58] LABS: Alanine Aminotransferase 21 units/L (7-56); Albumin 4.3 g/dL (3.9-5); Blood Urea Nitrogen 9 mg/dL (7-17); Calcium 8.8 mg/dL (8.4-10.2); Hemolysis Index 19
[2020-10-26 23:05] LABS: BUN/Creatinine Ratio 15; Bilirubin,Direct < 0.2 mg/dL (0-0.2)
[2020-10-27] MEDS ORDERED: HALOPERIDOL LACTATE 5 MG/1 ML INJ IM ONE (00:18)
[2020-10-27] MEDS ORDERED: PANTOPRAZOLE 40 MG INJ IV ONE (00:28)
[2020-10-27] MEDS ORDERED: METOCLOPRAMIDE 10 MG/2 ML INJ IV ONE (00:28)
[2020-10-27] MEDS ORDERED: HYDROmorphone 1 MG/1 ML INJ IV ONE (00:28)
--- NOTE | 2020-10-27 01:32 | Cat Scan Report ---
CT ABDOMEN AND PELVIS WITH CONTRAST HISTORY: Patient complains of abdominal pain with nausea and vomiting. COMPARISON: 09/11/2020 TECHNIQUE: CT images of the abdomen and pelvis were obtained following administration of intravenous contrast. All CT scans at this location are performed using CT dose reduction for ALARA by means of automated exposure control. CONTRAST: 100 ml of intravenous contrast administered. FINDINGS: Lungs/bones: Lung bases are clear Abdomen/pelvis: The liver, spleen, adrenal glands, pancreas appear normal. Portal vein is patent. Up per GI tract is unremarkable. Right renal cyst is again seen. No bowel obstruction is identified. Elizabeth endix appears normal. No dominant adenopathy in the abdomen or pelvis. No focal inflammatory changes identified. No acute bone findings are seen. Symmetric excretion from bilateral kidneys. Bilateral re nal cysts. IMPRESSION: 1. Bilateral renal cysts. 2. No acute findings. Signer Name: Osvaldo Zamora MD Signed: 10/27/2020 1:28 AM Workstation Name: [id number]
[2020-10-27 04:37] VITALS: BP 121/87
--- NOTE | 2020-10-28 19:17 | Electrocardiograph Report ---
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
== END 2020-10-27 01:50 | disposition home or self-care (01) ==
LOC: ED 14:34
DX: R10.13 Epigastric pain (principal); R10.31 Right lower quadrant pain; K08.89 Other specified disorders of teeth and supporting structures; I10 Essential (primary) hypertension; K21.9 Gastro-esophageal reflux disease without esophagitis; J45.909 Unspecified asthma, uncomplicated; F12.10 Cannabis abuse, uncomplicated; Z87.891 Personal history of nicotine dependence; Z90.49 Acquired absence of other specified parts of digestive tract; Z98.890 Other specified postprocedural states; Z79.899 Other long term (current) drug therapy; Z88.8 Allergy status to other drugs, medicaments and biological substances
CPT/HCPCS: 36415; 74177; 80048; 80076; 81001; 82550; 83690; 83735; 84484; 85014; 85018; 85049; 93005; 96361; 96374; 96375; 96376; 99284; C9113; J1170; J1200; J1630; J1642; J2405; J2765; J7030; Q9967

== ENCOUNTER 2020-11-14 18:16 | Emergency (ER) | payer MEDICAID ==
[2020-11-14] MEDS ORDERED: diphenhydrAMINE 50 MG/ML VIAL IV ONE ×2 (21:34→23:18)
[2020-11-14] MEDS ORDERED: HYDROmorphone 1 MG/1 ML INJ IV ONE ×2 (21:35→23:06)
[2020-11-14] MEDS ORDERED: SODIUM CHLORIDE 0.9% 1000 ML 1,000 ML IV ONE (21:35)
[2020-11-14] MEDS ORDERED: FAMOTIDINE 20 MG/2 ML INJ IV ONE (21:35)
[2020-11-14] MEDS ORDERED: ONDANSETRON 4 MG/2 ML INJ IV ONE ×2 (21:45→23:06)
--- NOTE | 2020-11-14 21:51 | Emergency Department Report ---
HPI - General Chief Complaint: Nausea/Vomiting/Diarrhea Time Seen by Provider: 11/14/20 21:30 - HPI HPI: This is a 45-year-old -[place]ogol[place] female, who is well-known to both myself in this department, presents to the emergency department with complaint of a 2- day history of abdominal pain, nausea with vomiting, generalized headache, and a labile blood pressure. The patient's blood pressure is within normal limits at this time, but she says that "because of my pain" and "when I am up and around" that the blood pressure gets very high. She has a past medical history that includes chronic abdominal pain, chronic pancreatitis, gastroparesis, hyp ertension, IBS. The patient has a surgical history of total abdominal hysterectomy, some bowel resection secondary to an SBO, cholecystectomy, and some type of fistula repair. She has a right-sided chest port in place. Patient says that she has an appointment with her control analyst, Dr. Hang Levy, on December 11 but says "I am just trying to get to that appointment." She denies any diarrhea, constipation, dysuria, vaginal bleeding or discharge. Currently she says that her abdominal pain is 6 out of 10 in intensity. No known aggravating or alleviating factors. ED Past Medical Hx - Past Medical History Previous Medical History?: Yes Hx Hypertension: Yes Hx GERD: Yes (Gastroparesis, Chronic Pancreatitis) Hx Renal Disease: Yes (renal failure- now in remission) Hx Kidney Stones: Yes Hx Asthma: Yes Additional medical history: ovarian/lung ca, gastroparesis, IBS, chronic pancreatitis, anemia. (LYMPHOMA LUNG), pyelonephritis, herpes, Small bowel obstruction,. PORT RIGHT CHEST - Surgical History Past Surgical History?: Yes Hx Cholecystectomy: Yes Additional Surgical History: fistula repair, lower bowel dissection, stents (in/out), hysterectomy 2007. Power port - Social History Smoking Status: Never Smoker Substance Use Type: None - Medications Home Medications: Home Medications Medication Instructions Recorded Confirmed Last Taken Type Ondansetron (Nf) [Zofran TAB] 8 mg PO Q8HR PRN #14 tablet 11/14/18 Unknown Rx Pantoprazole [Protonix TAB] 40 mg PO QDAY #14 tablet 11/14/18 Unknown Rx Ondansetron [Zofran Odt] 4 mg PO Q4HR PRN #20 tab.rapdis 12/27/19 Unknown Rx Promethazine [Phenergan TAB] 25 mg PO Q6HR PRN #20 tab 12/27/19 Unknown Rx Promethazine [Phenergan] 25 mg PO Q6HR PRN #20 tab 02/26/20 Unknown Rx Diphenoxylate/Atropine [Lomotil] 1 - 2 tab PO QID PRN #20 tablet 04/13/20 Unknown Rx Dicyclomine [Bentyl] 20 mg PO QID PRN #20 tablet 05/12/20 Unknown Rx Promethazine [Phenergan] 25 mg PO Q6HR PRN #20 tab 05/22/20 Unknown Rx Promethazine [Phenergan] 25 mg PO Q6HR PRN #20 tab 06/10/20 Unknown Rx Promethazine [Phenergan] 25 mg PO Q6HR PRN #20 tab 06/26/20 Unknown Rx Dicyclomine [Bentyl] 20 mg PO Q6H PRN #30 tablet 07/25/20 Unknown Rx Famotidine [Pepcid] 20 mg PO Q12H #60 tablet 07/25/20 Unknown Rx Promethazine HCl [Phenergan SUPPOS] 25 mg RC BID #10 supp.rect 07/25/20 Unknown Rx Promethazine [Phenergan] 25 mg PO Q6HR PRN #20 tab 07/25/20 Unknown Rx Dicyclomine [Bentyl] 20 mg PO QID PRN #20 tablet 09/01/20 Unknown Rx Promethazine [Phenergan SUPPOS] 25 mg NM Q6HR PRN #20 supp.rect 09/01/20 Un known Rx Hyoscyamine Subl [Levsin Sl 0.125 0.125 mg PO Q4HR #20 tablet 09/21/20 Unknown Rx TAB] Promethazine [Phenergan] 25 mg PO Q6HR PRN #20 tab 09/21/20 Unknown Rx Gabapentin 100 mg PO Q8HR #12 capsule 10/01/20 Unknown Rx Promethazine [Phenergan] 25 mg PO Q6HR PRN #20 tab 10/01/20 Unknown Rx Promethazine [Phenergan] 25 mg NM Q6HR PRN #5 supp.rect 10/01/20 Unknown Rx Chlorhexidine Mouthwash [Peridex] 15 ml MM BID #1 bottle 10/26/20 Unknown Rx Elina Root [Elina] 250 mg PO QID PRN #30 capsule 10/26/20 Unknown Rx Promethazine [Phenergan SUPPOS] 25 mg NM Q6HR PRN #15 supp.rect 10/26/20 Unknown Rx Acetaminophen [Non-Aspirin Extra 500 mg PO Q6HR PRN #30 tablet 10/27/20 Unknown Rx Strength] ED Review of Systems ROS: Stated complaint: FEVER, HIGH BLOOD PRESSURE Other details as noted in HPI Comment: All other systems reviewed and negative Constitutional: denies: chills, fever Eyes: denies: eye pain, vision change ENT: denies: ear pain, throat pain Respiratory: denies: cough, shortness of breath Cardiovascular: denies: chest pain, palpitations Gastrointestinal: abdominal pain, nausea, vomiting Genitourinary: denies: dysuria, discharge Musculoskeletal: denies: back pain, joint swelling Skin: denies: rash, lesions Neurological: headache. denies: weakness, numbness, paresthesias Physical Exam - Physical Exam Vital Signs: Vital Signs 11/14/20 11/14/20 19:42 21:35 Temperature 99.2 F Pulse Rate 76 86 Respiratory 16 16 Rate Blood Pressure 107/77 Blood Pressure 111/72 [Left] O2 Sat by Pulse 100 100 Oximetry Physical Exam: GENERAL: The patient is well-developed well-nourished. HENT: Normocephalic. Atraumatic. Patient has moist mucous membranes. EYES: Extraocular motions are intact. NECK: Supple. Trachea is midline. CHEST/LUNGS: Clear to auscultation. There is no respiratory distress noted. Right-sided chest port. HEART/CARDIOVASCULAR: Regular. There is no tachycardia. There is no murmur. ABDOMEN: Abdomen is soft. Upper abdominal tenderness palpation. No guarding. Patient has normal bowel sounds. SKIN: Skin is warm and dry. NEURO: The patient is awake, alert, and oriented. The patient is cooperative. The patient has no focal neurologic deficits. Normal speech. MUSCULOSKELETAL: There is no tenderness or deformity. There is no limitation range of motion. ED Course Vital Signs 11/14/20 11/14/20 19:42 21:35 Temperature 99.2 F Pulse Rate 76 86 Respiratory 16 16 Rate Blood Pressure 107/77 Blood Pressure 111/72 [Left] O2 Sat by Pulse 100 100 Oximetry ED Medical Decision Making - Lab Data Result diagrams: 11/14/20 Unknown 11/14/20 Unknown Lab Results 11/14/20 11/14/20 Range/Units Unknown Unknown WBC 5.0 (4.5-11.0) K/mm3 RBC 4.03 (3.65-5.03) M/mm3 Hgb 11.2 (10.1-14.3) gm/dl Hct 34.6 (30.3-42.9) % MCV 86 (79-97) fl MCH 28 (28-32) pg MCHC 32 (30-34) % RDW 14.7 (13.2-15.2) % Plt Count 246 (140-440) K/mm3 Lymph % (Auto) 54.2 H (13.4-35.0) % Cross % (Auto) 7.5 H (0.0-7.3) % Eos % (Auto) 1.1 (0.0-4.3) % Baso % (Auto) 0.6 (0.0-1.8) % Lymph # (Auto) 2.7 (1.2-5.4) K/mm3 Cross # (Auto) 0.4 (0.0-0.8) K/mm3 Eos # (Auto) 0.1 (0.0-0.4) K/mm3 Baso # (Auto) 0.0 (0.0-0.1) K/mm3 Seg Neutrophils % 36.6 L (40.0-70.0) % Seg Neutrophils # 1.8 (1.8-7.7) K/mm3 Sodium 138 (137-145) mmol/L Potassium 3.5 L (3.6-5.0) mmol/L Chloride 102.8 (98-107) mmol/L Carbon Dioxide 25 (22-30) mmol/L Anion Gap 14 mmol/L BUN 10 (7-17) mg/dL Creatinine 0.7 (0.6-1.2) mg/dL Estimated GFR > 60 ml/min BUN/Creatinine Ratio 14 % Glucose 86 (65-100) mg/dL Calcium 8.9 (8.4-10.2) mg/dL Total Bilirubin 0.30 (0.1-1.2) mg/dL AST 46 H (5-40) units/L ALT 12 (7-56) units/L Alkaline Phosphatase 70 (35-129) units/L Total Protein 6.7 (6.3-8.2) g/dL Albumin 4.5 (3.9-5) g/dL Albumin/Globulin Ratio 2.0 % Lipase 65 H (13-60) units/L - Radiology Data Radiology results: image reviewed interpreted by me: Abdominal x-ray shows nonspecific nonobstructive bowel gas. Increased stool volume. No free air. - Medical Decision Making This patient presents with a 2-day history of some upper abdominal pain, nausea and vomiting, and a generalized headache. On examination the patient does not have any focal, motor or sensory deficits and her cranial nerves are intact. There is some reproducible upper abdominal tenderness to palpation. However the abdomen is soft, nondistended and nontoxic in appearance. Abdominal x-ray shows nonspecific nonobstructive bowel gas, increased stool volume, and no free air. Patient's labs have been mostly unremarkable including CBC, CMP, lipase is slightly elevated but the patient has chronic elevation in her lipase and this is actually lower than usual. Patient was given 2 rounds of medications/treatment including IV analgesia, antiemetic, H2 joanna, IV fluid resuscitation. The patient was asking for a prescription for narcotic pain medication for home. I explained to her that I did not feel that was warranted at this time but that I would be happy to treat her pain while she is in the emergency department. This occurred prior to the second round of medications. After being medicated the patient suddenly demanded that her port be deaccessed, said something about her family waiting outside and having some type of an emergency, and eloped from the emergency dep artment. Critical Care Time: No Critical care attestation.: If time is entered above; I have spent that time in minutes in the direct care of this critically ill patient, excluding procedure time. ED Disposition Clinical Impression: Abdominal pain, Gastroparesis, Vomiting Disposition: ELOPED Is pt being admited?: No Condition: Stable Time of Disposition: 23:57
[2020-11-14 22:12] LABS: Basophils % (Auto) 0.6 % (0.0-1.8); Eosinophils # (Auto) 0.1 K/mm3 (0.0-0.4); Eosinophils % (Auto) 1.1 % (0.0-4.3); Hematocrit 34.6 % (30.3-42.9); Hemoglobin 11.2 gm/dl (10.1-14.3); Lymphocytes # (Auto) 2.7 K/mm3 (1.2-5.4); Lymphocytes % (Auto) 54.2 % (13.4-35.0); Mean Corpuscular HGB Conc 32 % (30-34); Mean Corpuscular Volume 86 fl (79-97); Monocytes # (Auto) 0.4 K/mm3 (0.0-0.8); Monocytes % (Auto) 7.5 % (0.0-7.3); Platelet Count 246 K/mm3 (140-440); Red Blood Count 4.03 M/mm3 (3.65-5.03); Red Cell Distribution Width 14.7 % (13.2-15.2)
--- NOTE | 2020-11-14 22:24 | XRay Report ---
ABDOMEN 2 VIEW(S) INDICATION / CLINICAL INFORMATION: Abd pain. COMPARISON: 10/09/2020 KUB FINDINGS: TUBES / LINES: None. BOWEL GAS PATTERN: Moderate colonic stool burden may be seen with constipation. Nonobstructive bowel gas pattern. FREE AIR / EXTRALUMINAL GAS: None seen. ADDITIONAL FINDINGS: No significant additional findings. IMPRESSION: 1. Bowel findings as above. Signer Name: Demian Garcia MD Signed: 11/14/2020 10:19 PM Workstation Name: [id number]
[2020-11-14 22:33] LABS: Alanine Aminotransferase 12 units/L (7-56); Albumin 4.5 g/dL (3.9-5); Blood Urea Nitrogen 10 mg/dL (7-17); Calcium 8.9 mg/dL (8.4-10.2); Hemolysis Index 5
[2020-11-14 22:34] LABS: BUN/Creatinine Ratio 14
[2020-11-14 23:52] VITALS: BP 129/87
== END 2020-11-14 23:53 | disposition left against medical advice (07) ==
LOC: ED 18:16
DX: K31.84 Gastroparesis (principal); R11.10 Vomiting, unspecified; R10.9 Unspecified abdominal pain; I10 Essential (primary) hypertension; K21.9 Gastro-esophageal reflux disease without esophagitis; J45.909 Unspecified asthma, uncomplicated; Z90.49 Acquired absence of other specified parts of digestive tract; Z98.890 Other specified postprocedural states; Z79.899 Other long term (current) drug therapy; Z88.8 Allergy status to other drugs, medicaments and biological substances
CPT/HCPCS: 36415; 74019; 80053; 83690; 85025; 96361; 96374; 96375; 96376; 99284; J1170; J1200; J2405; J7030

== ENCOUNTER 2020-12-04 11:11 | Emergency (ER) | payer MEDICAID ==
--- NOTE | 2020-12-04 13:59 | Event Note ---
ED Screening Note Date of service: 12/04/20 Time: 13:55 ED Screening Note: 45-year-old -Iranian female presents emergency room for epigastric pain. Patient has a history of pancreatitis. Patient states she has been on drinking wine. Having bloody stool. This initial assessment/diagnostic orders/clinical plan/treatment(s) is/are subject to change based on patients health status, clinical progression and re- assessment by fellow clinical providers in the ED. Further treatment and workup at subsequent clinical providers discretion. Patient/guardian urged not to elope from the ED as their condition may be serious if not clinically assessed and managed. Initial orders include:
[2020-12-04] MEDS ORDERED: LACTATED RINGERS 1,000 ML IV ONE (14:22)
[2020-12-04] MEDS ORDERED: diphenhydrAMINE 50 MG/ML VIAL IV ONE ×2 (14:22→16:46)
[2020-12-04] MEDS ORDERED: HYDROmorphone 1 MG/1 ML INJ IV ONE ×3 (14:22→18:05)
[2020-12-04] MEDS ORDERED: METOCLOPRAMIDE 10 MG/2 ML INJ IV ONE ×2 (14:22→16:46)
--- NOTE | 2020-12-04 14:24 | Emergency Department Report ---
<ROSARIO HOANG - Last Filed: 12/04/20 15:46> ED General Adult HPI - General Chief complaint: Abdominal Pain Stated complaint: BACK PAINS PUI?: No Time Seen by Provider: 12/04/20 14:08 Source: patient, RN notes reviewed, old records reviewed Mode of arrival: Ambulatory Limitations: No Limitations - History of Present Illness Initial comments: The patient is a 45-year-old female. I have evaluated this patient in the past. Please see my note on this patient's past medical history from October 2020. During the history and physical examination, I am chaperoned by nurse Renée Herrera. Patient presents to the ER today with a complaint of diffuse abdominal cramping, nausea vomiting, and general discomfort. The patient reports she feels like she might have an episode of pancreatitis flare. She reports that she recently consumed wine. No fever. No loss of taste or smell. No hematemesis. No bright red blood per rectum. States that she is not , has a distant history of hysterectomy. Denies Covid symptomatology. Her symptoms typically improved with Dilaudid, Benadryl, Reglan and IV fluids. -: Gradual, hour(s) Location: abdomen Radiation: back Quality: aching Consistency: constant Improves with: medication Worsens with: movement - Related Data Previous Rx's Medication Instructions Recorded Last Taken Type Ondansetron (Nf) [Zofran TAB] 8 mg PO Q8HR PRN #14 tablet 11/14/18 Unknown Rx Pantoprazole [Protonix TAB] 40 mg PO QDAY #14 tablet 11/14/18 Unknown Rx Ondansetron [Zofran Odt] 4 mg PO Q4HR PRN #20 tab.rapdis 12/27/19 Unknown Rx Promethazine [Phenergan] 25 mg PO Q6HR PRN #20 tab 02/26/20 Unknown Rx Diphenoxylate/Atropine [Lomotil] 1 - 2 tab PO QID PRN #20 tablet 04/13/20 Unknown Rx Promethazine [Phenergan] 25 mg PO Q6HR PRN #20 tab 05/22/20 Unknown Rx Promethazine [Phenergan] 25 mg PO Q6HR PRN #20 tab 06/10/20 Unknown Rx Promethazine [Phenergan] 25 mg PO Q6HR PRN #20 tab 06/26/20 Unknown Rx Dicyclomine [Bentyl] 20 mg PO Q6H PRN #30 tablet 07/25/20 Unknown Rx Famotidine [Pepcid] 20 mg PO Q12H #60 tablet 07/25/20 Unknown Rx Promethazine HCl [Phenergan SUPPOS] 25 mg RC BID #10 supp.rect 07/25/20 Unknown Rx Promethazine [Phenergan] 25 mg PO Q6HR PRN #20 tab 07/25/20 Unknown Rx Dicyclomine [Bentyl] 20 mg PO QID PRN #20 tablet 09/01/20 Unknown Rx Promethazine [Phenergan SUPPOS] 25 mg OH Q6HR PRN #20 supp.rect 09/01/20 Unknown Rx Hyoscyamine Subl [Levsin Sl 0.125 0.125 mg PO Q4HR #20 tablet 09/21/20 Unknown Rx TAB] Promethazine [Phenergan] 25 mg PO Q6HR PRN #20 tab 09/21/20 Unknown Rx Gabapentin 100 mg PO Q8HR #12 capsule 10/01/20 Unknown Rx Promethazine [Phenergan] 25 mg PO Q6HR PRN #20 tab 10/01/20 Unknown Rx Chlorhexidine Mouthwash [Peridex] 15 ml MM BID #1 bottle 10/26/20 Unknown Rx Promethazine [Phenergan SUPPOS] 25 mg OH Q6HR PRN #15 supp.rect 10/26/20 Unknown Rx Acetaminophen [Non-Aspirin Extra 500 mg PO Q6HR PRN #30 tablet 12/04/20 Unknown Rx Strength] Dicyclomine [Bentyl] 20 mg PO QID PRN #20 tablet 12/04/20 Unknown Rx Elina Root [Elina] 250 mg PO QID PRN #30 capsule 12/04/20 Unknown Rx Promethazine [Phenergan SUPPOS] 25 mg OH Q6HR PRN #5 supp.rect 12/04/20 Unknown Rx Promethazine [Phenergan] 25 mg PO Q6HR PRN #20 tab 12/04/20 Unknown Rx Allergies Allergy/AdvReac Type Severity Reaction Status Date / Time codeine Allergy Itching Verified 09/01/20 09:54 fentanyl Allergy Hives Verified 09/01/20 09:54 ketorolac tromethamine Allergy Itching Verified 09/01/20 09:54 [From Toradol] metoclopramide HCl Allergy Hives Verified 09/01/20 09:54 [From Reglan] morphine Allergy Hives Verified 09/01/20 09:54 prochlorperazine edisylate Allergy Hives Verified 09/01/20 09:54 [From Compazine] prochlorperazine maleate Allergy Hives Verified 09/01/20 09:54 [From Compazine] ED Review of Systems Constitutional: malaise, weakness, other (Denies loss of taste and smell). denies: fever Eyes: denies: eye discharge ENT: denies: epistaxis Respiratory: denies: cough Cardiovascular: denies: syncope Gastrointestinal: abdominal pain, nausea, vomiting Genitourinary: denies: dysuria Musculoskeletal: back pain Neurological: weakness Psychiatric: anxiety Hematological/Lymphatic: denies: easy bleeding ED Past Medical Hx - Past Medical History Hx Hypertension: Yes Hx GERD: Yes (Gastroparesis, Chronic Pancreatitis) Hx Renal Disease: Yes (renal failure- now in remission) Hx Kidney Stones: Yes Hx Asthma: Yes Additional medical history: ovarian/lung ca, gastroparesis, IBS, chronic pancreatitis, anemia. (LYMPHOMA LUNG), pyelonephritis, herpes, Small bowel obstruction,. PORT RIGHT CHEST - Surgical History Hx Cholecystectomy: Yes Additional Surgical History: fistula repair, lower bowel dissection, stents (in/out), hysterectomy 2007. Power port - Social History Smoking Status: Never Smoker Substance Use Type: None - Medications Home Medications: Home Medications Medication Instructions Recorded Confirmed Last Taken Type Ondansetron (Nf) [Zofran TAB] 8 mg PO Q8HR PRN #14 tablet 11/14/18 Unknown Rx Pantoprazole [Protonix TAB] 40 mg PO QDAY #14 tablet 11/14/18 Unknown Rx Ondansetron [Zofran Odt] 4 mg PO Q4HR PRN #20 tab.rapdis 12/27/19 Unknown Rx Promethazine [Phenergan] 25 mg PO Q6HR PRN #20 tab 02/26/20 Unknown Rx Diphenoxylate/Atropine [Lomotil] 1 - 2 tab PO QID PRN #20 tablet 04/13/20 Unknown Rx Promethazine [Phenergan] 25 mg PO Q6HR PRN #20 tab 05/22/20 Unknown Rx Promethazine [Phenergan] 25 mg PO Q6HR PRN #20 tab 06/10/20 Unknown Rx Promethazine [Phenergan] 25 mg PO Q6HR PRN #20 tab 06/26/20 Unknown Rx Dicyclomine [Bentyl] 20 mg PO Q6H PRN #30 tablet 07/25/20 Unknown Rx Famotidine [Pepcid] 20 mg PO Q12H #60 tablet 07/25/20 Unknown Rx Promethazine HCl [Phenergan SUPPOS] 25 mg RC BID #10 supp.rect 07/25/20 Unknown Rx Promethazine [Phenergan] 25 mg PO Q6HR PRN #20 tab 07/25/20 Unknown Rx Dicyclomine [Bentyl] 20 mg PO QID PRN #20 tablet 09/01/20 Unknown Rx Promethazine [Phenergan SUPPOS] 25 mg OH Q6HR PRN #20 supp.rect 09/01/20 Unknown Rx Hyoscyamine Subl [Levsin Sl 0.125 0.125 mg PO Q4HR #20 tablet 09/21/20 Unknown Rx TAB] Promethazine [Phenergan] 25 mg PO Q6HR PRN #20 tab 09/21/20 Unknown Rx Gabapentin 100 mg PO Q8HR #12 capsule 10/01/20 Unknown Rx Promethazine [Phenergan] 25 mg PO Q6HR PRN #20 tab 10/01/20 Unknown Rx Chlorhexidine Mouthwash [Peridex] 15 ml MM BID #1 bottle 10/26/20 Unknown Rx Promethazine [Phenergan SUPPOS] 25 mg OH Q6HR PRN #15 supp.rect 10/26/20 Unknown Rx Acetaminophen [Non-Aspirin Extra 500 mg PO Q6HR PRN #30 tablet 12/04/20 Unknown Rx Strength] Dicyclomine [Bentyl] 20 mg PO QID PRN #20 tablet 12/04/20 Unknown Rx Elina Root [Elina] 250 mg PO QID PRN #30 capsule 12/04/20 Unknown Rx Promethazine [Phenergan SUPPOS] 25 mg OH Q6HR PRN #5 supp.rect 12/04/20 Unknown Rx Promethazine [Phenergan] 25 mg PO Q6HR PRN #20 tab 12/04/20 Unknown Rx ED Physical Exam - General Limitations: No Limitations General appearance: alert, anxious, obese - Head Head exam: Present: atraumatic, normocephalic - Eye Eye exam: Present: normal appearance. Absent: nystagmus - ENT ENT exam: Present: normal exam, normal orophraynx, mucous membranes moist, normal external ear exam - Neck Neck exam: Present: normal inspection, full ROM. Absent: tenderness, meningismus - Respiratory Respiratory exam: Present: normal lung sounds bilaterally. Absent: respiratory distress, wheezes, rales, rhonchi, stridor, decreased breath sounds - Cardiovascular Cardiovascular Exam: Present: regular rate, normal rhythm, normal heart sounds. Absent: bradycardia, tachycardia, irregular rhythm, systolic murmur, diastolic murmur, rubs, gallop - GI/Abdominal GI/Abdominal exam: Present: soft, tenderness. Absent: distended, guarding, rebound, rigid, pulsatile mass - Extremities Exam Extremities exam: Present: normal inspection, full ROM, other (2+ pulses noted in the bilateral upper and lower extremities. There is no palpable cord. negative Homans sign. Muscular compartments are soft. The pelvis is stable.). Absent: pedal edema, calf tenderness - Back Exam Back exam: Present: normal inspection, full ROM. Absent: tenderness, CVA tenderness (R), CVA tenderness (L), paraspinal tenderness, vertebral tenderness - Neurological Exam Neurological exam: Present: alert, normal gait, other (No facial droop. Tongue midline. Extraocular movements intact bilaterally. Facial sensation intact to light touch in V1, V2, V3 distribution bilaterally. 5 and a 5 strength in 4 extremities. Sensation intact to light touch in 4 extremities.). Absent: motor sensory deficit - Psychiatric Psychiatric exam: Present: anxious - Skin Skin exam: Present: warm, dry, intact, normal color. Absent: rash ED Course - Reevaluation(s) Reevaluation #1: 12/04/20 14:46 11/27/2020 2 11/27/2020 HYDROCODONE-ACETAMIN 5-325 MG 12.0 3 PS ELIANA [id number] [facility] ([id number]) 0 20.0 MME [place] 11/13/2020 2 11/13/2020 ACETAMINOPHEN-COD #3 TABLET 10.0 3 AY NORMA [id number] [facility] ([id number]) 0 15.0 [place] 10/19/2020 2 10/19/2020 ACETAMINOPHEN-COD #3 TABLET 12.0 3 [place] FIS [id number] [facility] ([id number]) 0 18.0 [place]ME [place] 10/01/2020 2 10/01/2020 HYDROCODONE-ACETAMIN 5-325 MG 10.0 3 JU ALI [id number] [facility] ([id number]) 0 16.67 [place] 09/23/2020 2 09/23/2020 TRAMADOL HCL 50 MG TABLET 12.0 3 JA RICHTER [id number] [facility] ([id number]) 0 20.0 [place] 09/14/2020 2 09/14/2020 TRAMADOL HCL 50 MG TABLET 14.0 7 AL ISK [id number] [facility] ([id number]) 0 10.0 [place] 09/11/2020 2 09/11/2020 OXYCODONE-ACETAMINOPHEN 5-325 12.0 4 GE ROSITA [id number] [facility] ([id number]) 0 22.5 [place] 09/08/2020 3 09/07/2020 TRAMADOL HCL 50 MG TABLET 15.0 4 RI [facility] [id number] [facility] ([id number]) 0 18.75 [place] 09/01/2020 1 09/01/2020 TRAMADOL HCL 50 MG TABLET 7.0 1 TH GUN [id number] [facility] ([id number]) 0 35.0 [place] 08/26/2020 2 08/26/2020 HYDROCODONE-ACETAMIN 5-325 MG 12.0 3 JA BAR [id number] [facility] ([id number]) 0 20.0 [place] 08/05/2020 2 08/05/2020 HYDROCODONE-ACETAMIN 5-325 MG 12.0 3 PS ELIANA [id number] [facility] (3571) 0 20.0 [place] 07/21/2020 2 07/21/2020 HYDROCODONE-ACETAMIN 5-325 MG 12.0 4 JA BAR [id number] [facility] (9609) 0 15.0 [place] 07/09/2020 2 07/09/2020 HYDROCODONE-ACETAMIN 5-325 MG 12.0 3 CH DHRUV [id number] [facility] ([id number]) 0 20.0 [place] 07/01/2020 2 07/01/2020 ACETAMINOPHEN-COD #3 TABLET 14.0 4 LISETTE CUNNINGHAM [id number] [facility] ([id number]) 0 15.75 [place] 06/26/2020 2 06/26/2020 OXYCODONE-ACETAMINOPHEN 5-325 12.0 6 RICKIE BECKER [id number] [facility] ([id number]) 0 15.0 [place] 06/16/2020 2 06/16/2020 HYDROCODONE-ACETAMIN 5-325 MG 12.0 3 DEACON BARTLETT [id number] [facility] ([id number]) 0 20.0 [place] 06/10/2020 2 06/10/2020 HYDROCODONE-ACETAMIN 5-325 MG 5.0 2 RAMÓN BATRES [id number] [facility] ([id number]) 0 12.5 [place] Reevaluation #2: 12/04/20 14:46 Differential diagnosis, including but not limited to: Narcotic bowel syndrome, cyclic vomiting syndrome, colitis, diverticulitis, obstruction, dehydration, pancreatitis, renal colic Assessment and plan: 45-year-old female, who is on chronic narcotic therapy, as per review of prescription database, has received multiple controlled substances from providers, also consumes cannabis/marijuana, may have a component of cannabinoid hyperemesis syndrome, presenting with acute on chronic abdominal pain. This is similar to prior evaluations on this patient. Check appropriate laboratory studies, treat symptoms, obtain CT scan of the abdomen pelvis, and reassess. The patient denies urinary symptoms. The patient denies loss of taste and smell. The patient denies bleeding per rectum. I suspect that this is an exacerbation of patient's chronic pain. Patient is agreeable to this plan of care. We will also obtain an EKG. Reevaluation #3: 12/04/20 15:22 Care transferred to the oncoming ER physician to follow-up on CT scan abdomen pelvis, remainder of laboratory studies EKG, and perform final reassessment. A nticipate if objective diagnostics unremarkable, discharge with outpatient follow-up would be reasonable. 12/04/20 15:23 12/04/20 15:47 EKG unremarkable. Laboratory studies thus far unremarkable. Nursing team endorses that patient has felt improved. Urinalysis is pending. CT scan abdomen pelvis is pending. ED Medical Decision Making - Lab Data Result diagrams: 12/04/20 14:22 12/04/20 13:57 Vital Signs 12/04/20 12:08 Temperature 99.3 F Pulse Rate 89 Respiratory 18 Rate Blood Pressure 122/77 [Left] O2 Sat by Pulse 98 Oximetry Lab Results 12/04/20 12/04/20 12/04/20 Range/Units 13:57 13:58 14:22 Hgb 10.4 (10.1-14.3) gm/dl Hct 32.6 (30.3-42.9) % Sodium 138 (137-145) mmol/L Potassium 3.9 (3.6-5.0) mmol/L Chloride 103.5 (98-107) mmol/L Carbon Dioxide 25 (22-30) mmol/L Anion Gap 13 mmol/L BUN 8 (7-17) mg/dL Creatinine 0.5 L (0.6-1.2) mg/dL Estimated GFR > 60 ml/min BUN/Creatinine Ratio 16 % Glucose 90 (65-100) mg/dL Calcium 9.2 (8.4-10.2) mg/dL Magnesium 2.10 (1.7-2.3) mg/dL Total Bilirubin 0.20 (0.1-1.2) mg/dL AST 44 H (5-40) units/L ALT 12 (7-56) units/L Alkaline Phosphatase 64 (35-129) units/L Total Protein 6.7 (6.3-8.2) g/dL Albumin 4.4 (3.9-5) g/dL Albumin/Globulin Ratio 1.9 % Lipase 131 H (13-60) units/L - EKG Data -: EKG Interpreted by Pr EKG shows normal: sinus rhythm Rate: normal - EKG Data 12/04/20 15:47 EKG interpreted at 15: 38 Sinus rhythm, 68 bpm. Normal axis, normal intervals, normal P wave axis, borderline atrial enlargement, borderline high left ventricular voltage. Not a STEMI. - Radiology Data Radiology results: pending ED Disposition Clinical Impression: GERD (gastroesophageal reflux disease), Gastroparesis Disposition: DC-01 TO HOME OR SELFCARE Condition: Stable Instructions: Abdominal Pain (ED) Additional Instructions: Recommend that the patient discontinue consumption of alcohol, cannabis, marijuana-containing products. Please do not take metformin medication for the next 2 days, if patient takes this medication. Please take the nausea medication as needed and directed. Please follow-up with an outpatient primary care doctor or toll operator within the next 3 to 5 days. Please return to the emergency room right away with new pain, worsened pain, migration of pain, projectile vomiting, change in mental status, confusion, inability to tolerate liquid feeds, new, worsened or different symptoms not present on the initial emergency room evaluation. Prescriptions: Dicyclomine [Bentyl] 20 mg PO QID PRN #20 tablet PRN Reason: abdominal pain Elina Root [Elina] 250 mg PO QID PRN #30 capsule PRN Reason: Nausea Acetaminophen [Non-Aspirin Extra Strength] 500 mg PO Q6HR PRN #30 tablet PRN Reason: Pain , Severe (7-10) Promethazine [Phenergan] 25 mg PO Q6HR PRN #20 tab PRN Reason: Nausea Promethazine [Phenergan SUPPOS] 25 mg OH Q6HR PRN #5 supp.rect PRN Reason: Vomiting Referrals: PRIMARY CARE, [Primary Care Provider] - 3-5 Days [facility] [Provider Group] - 3-5 Days [facility] [Provider Group] - 3-5 Days <MENDEL JACOBSON - Last Filed: 12/04/20 18:05> ED Review of Systems ROS: Stated complaint: BACK PAINS Other details as noted in HPI ED Course Vital Signs 12/04/20 12:08 Temperature 99.3 F Pulse Rate 89 Respiratory 18 Rate Blood Pressure 122/77 [Left] O2 Sat by Pulse 98 Oximetry ED Medical Decision Making - Lab Data Result diagrams: 12/04/20 14:22 12/04/20 13:57 - Radiology Data [facility] [address] [place] [address] Cat Scan Report Signed Patient: SONJA SERNA MR#: [id number] : [id number] Acct:[id number] Age/Sex: 45 / F ADM Date: 12/04/20 Loc: ED Attending Dr: Ordering Physician: ROSARIO HOANG MD Date of Service: 12/04/20 Procedure(s): CT abdomen pelvis w con Accession Number(s): [id number] cc: ROSARIO HOANG MD CT ABDOMEN AND PELVIS WITH IV CONTRAST INDICATION: acute abd pain n/v 100 ml omni 300 . COMPARISON: CT 10/27/2020 TECHNIQUE: All CT scans at this facility use dose modulation, automated exposure control, iterative reconstruction or weight based dosing, when appropriate, to reduce radiation dose to as low as reasonably achievable. FINDINGS: Lung Bases: No significant abnormality. Skeletal System: No acute abnormality. ABDOMEN: Liver: No significant abnormality. Gallbladder: Removed. Bile Ducts: No significant abnormality. Pancreas: No significant abnormality. Spleen: No significant abnormality. Adrenals: No significant abnormality. Right Kidney: No significant abnormality. Stable simple cyst. Left Kidney: No significant abnormality. Stable simple cyst. Upper GI tract: No significant abnormality. Lymph Nodes: No significant adenopathy. Aorta: No significant abnormality. Additional Findings: No significant abnormality. PELVIS: Colon: No acute abnormality. Urinary Bladder and Distal Ureters: Decompressed, limiting its evaluation. Appendix: No signific ant abnormality. Lymph Nodes: No significant adenopathy. Additional Findings: None. IMPRESSION: 1. No acute process in the abdomen or pelvis. This is the patient's sixth negative abdomen/pelvis CT in the past 5 months. Signer Name: Dimitris Ramos MD Signed: 12/04/2020 5:14 PM Workstation Name: [id number] : 1975 Acct:[id number] Age/Sex: 45 / F ADM Date: 12/04/20 Loc: ED Attending Dr: Ordering Physician: ROSARIO HOANG MD Date of Service: 12/04/20 Procedure(s): CT abdomen pelvis w con Accession Number(s): [id number] cc: ROSARIO HOANG MD CT ABDOMEN AND PELVIS WITH IV CONTRAST INDICATION: acute abd pain n/v 100 ml omni 300 . COMPARISON: CT 10/27/2020 TECHNIQUE: All CT scans at this facility use dose modulation, automated exposure control, iterative reconstruction or weight based dosing, when appropriate, to reduce radiation dose to as low as reasonably achievable. FINDINGS: Lung Bases: No significant abnormality. Skeletal System: No acute abnormality. ABDOMEN: Liver: No significant abnormality. Gallbladder: Removed. Bile Ducts: No significant abnormality. Pancreas: No significant abnormality. Spleen: No significant abnormality. Adrenals: No significant abnormality. Right Kidney: No significant abnormality. Stable simple cyst. Left Kidney: No significant abnormality. Stable simple cyst. Upper GI tract: No significant abnormality. Lymph Nodes: No significant adenopathy. Aorta: No significant abnormality. Additional Findings: No significant abnormality. PELVIS: Colon: No acute abnormality. Urinary Bladder and Distal Ureters: Decompressed, limiting its evaluation. Appendix: No significant abnormality. Lymph Nodes: No significant adenopathy. Additional Findings: None. IMPRESSION: 1. No acute process in the abdomen or pelvis. This is the patient's sixth negative abdomen/pelvis CT in the past 5 months. Signer Name: Dimitris Ramos MD - Medical Decision Making This is a 45-year-old female with recurrent abdominal pain differential diagnosis includes IBS, cannabinoid hyperemesis syndrome, narcotic bowel syndrome. CT abdomen pelvis ruled out acute inflammatory obstructive process. Equivocal lipase elevation does not indicate acute pancreatitis in the setting. I did not observe any vomiting during the 2 hours that patient was under my care. Patient does not have any abdominal tenderness on my examination. She is discharged home. Critical care attestation.: If time is entered above; I have spent that time in minutes in the direct care of this critically ill patient, excluding procedure time. ED Disposition Is pt being admited?: No Does the pt Need Aspirin: No
[2020-12-04 15:15] LABS: Hematocrit 32.6 % (30.3-42.9); Hemoglobin 10.4 gm/dl (10.1-14.3)
[2020-12-04 15:33] LABS: Alanine Aminotransferase 12 units/L (7-56); Albumin 4.4 g/dL (3.9-5); Blood Urea Nitrogen 8 mg/dL (7-17); Calcium 9.2 mg/dL (8.4-10.2); Hemolysis Index 8
[2020-12-04 15:34] LABS: BUN/Creatinine Ratio 16
--- NOTE | 2020-12-04 17:18 | Cat Scan Report ---
CT ABDOMEN AND PELVIS WITH IV CONTRAST INDICATION: acute abd pain n/v 100 ml omni 300 . COMPARISON: CT 10/27/2020 TECHNIQUE: All CT scans at this facility use dose modulation, automated exposure control, iterative reconstructi on or weight based dosing, when appropriate, to reduce radiation dose to as low as reasonably achieva ble. FINDINGS: Lung Bases: No significant abnormality. Skeletal System: No acute abnormality. ABDOMEN: Liver: No significant abnormality. Gallbladder: Removed. Bile Ducts: No significant abnormality. Pancreas: No significant abnormality. Spleen: No significant abnormality. Adrenals: No significant abnormality. Right Kidney: No significant abnormality. Stable simple cyst. Left Kidney: No significant abnormality. Stable simple cyst. Upper GI tract: No significant abnormality. Lymph Nodes: No significant adenopathy. Aorta: No significant abnormality. Additional Findings: No significant abnormality. PELVIS: Colon: No acute abnormality. Urinary Bladder and Distal Ureters: Decompressed, limiting its evaluation. Appendix: No significant abnormality. Lymph Nodes: No significant adenopathy. Additional Findings: None. IMPRESSION: 1. No acute process in the abdomen or pelvis. This is the patient's sixth negative abdomen/pelvis CT in the past 5 months. Signer Name: Dimitris Ramos MD Signed: 12/04/2020 5:14 PM Workstation Name: [id number]
[2020-12-04 18:23] VITALS: BP 131/83
--- NOTE | 2020-12-07 11:09 | Electrocardiograph Report ---
[facility] Test Date: 2020-12-04 Test Time: 15:38:33 Pat Name: SONJA SERNA Department: Room: Gender: F Warp Spinner: POONAM : 1975 Requested By: ROSARIO HOANG Order Number: [id number] Reading MD: Mina Lilly Measurements Intervals [place] Rate: 68 P: 62 CA: 156 QRS: 24 QRSD: 92 T: 31 QT: 401 QTc: 426 Interpretive Statements Sinus rhythm Probable left atrial enlargement Compared to ECG 10/26/2020 21:29:47 Sinus arrhythmia no longer present Myocardial infarct finding no longer present Electronically Signed On 12-07-2020 11:09:34 EDT by Mina Lilly
== END 2020-12-04 18:23 | disposition home or self-care (01) ==
LOC: ED 11:11
DX: K21.9 Gastro-esophageal reflux disease without esophagitis (principal); K31.84 Gastroparesis; I12.9 Hypertensive chronic kidney disease with stage 1 through stage 4 chronic kidney disease, or unspecified chronic kidney disease; N18.9 Chronic kidney disease, unspecified; J45.909 Unspecified asthma, uncomplicated; Z98.890 Other specified postprocedural states; Z87.442 Personal history of urinary calculi; K86.1 Other chronic pancreatitis; Z88.5 Allergy status to narcotic agent; Z88.6 Allergy status to analgesic agent; Z88.8 Allergy status to other drugs, medicaments and biological substances
CPT/HCPCS: 36415; 74177; 80053; 83690; 83735; 85014; 85018; 93005; 96361; 96365; 96375; 96376; 99284; J1170; J1200; J1642; J2765; J7120; Q9967

== ENCOUNTER 2020-12-21 08:44 | Emergency (ER) | payer MEDICAID ==
--- NOTE | 2020-12-21 13:36 | Emergency Department Report ---
ED Abdominal Pain HPI - General Chief Complaint: Abdominal Pain Stated Complaint: HYPERTENSION PUI?: No Time Seen by Provider: 12/21/20 13:25 Source: patient Mode of arrival: Ambulatory Limitations: No Limitations - History of Present Illness Initial Comments: CC: "I was sent here by my GI doctor." HPI: This is a 45 yo female with hx of pancreatitis, SBO, gastroparesis, gastritis, GERD, ovarian cancer in remission who presents with abdominal pain for one day. She contacted the office of Dr. Levy. Nursing staff referred her to the ED. She has colicky diffuse abdominal pain, crampy, sharp. 10/10 in severity Poor appetitie. +Nausea. Has had recent bowel movement. Patient's last visit with her GI specialist December 09 twelve days ago MD Complaint: abdominal pain -: Gradual Location: diffuse Radiation: none Migration to: no migration Severity scale (0 -10): 10 Quality: cramping, aching Consistency: intermittent, colicky Improves With: nothing Worsens With: nothing Associated Symptoms: nausea, other (Poor appetite) - Related Data Previous Rx's Medication Instructions Recorded Last Taken Type Ondansetron (Nf) [Zofran TAB] 8 mg PO Q8HR PRN #14 tablet 11/14/18 Unknown Rx Pantoprazole [Protonix TAB] 40 mg PO QDAY #14 tablet 11/14/18 Unknown Rx Ondansetron [Zofran Odt] 4 mg PO Q4HR PRN #20 tab.rapdis 12/27/19 Unknown Rx Promethazine [Phenergan] 25 mg PO Q6HR PRN #20 tab 02/26/20 Unknown Rx Diphenoxylate/Atropine [Lomotil] 1 - 2 tab PO QID PRN #20 tablet 04/13/20 Unknown Rx Promethazine [Phenergan] 25 mg PO Q6HR PRN #20 tab 05/22/20 Unknown Rx Promethazine [Phenergan] 25 mg PO Q6HR PRN #20 tab 06/10/20 Unknown Rx Promethazine [Phenergan] 25 mg PO Q6HR PRN #20 tab 06/26/20 Unknown Rx Dicyclomine [Bentyl] 20 mg PO Q6H PRN #30 tablet 07/25/20 Unknown Rx Famotidine [Pepcid] 20 mg PO Q12H #60 tablet 07/25/20 Unknown Rx Promethazine HCl [Phenergan SUPPOS] 25 mg RC BID #10 supp.rect 07/25/20 Unknown Rx Promethazine [Phenergan] 25 mg PO Q6HR PRN #20 tab 07/25/20 Unknown Rx Dicyclomine [Bentyl] 20 mg PO QID PRN #20 tablet 09/01/20 Unknown Rx Promethazine [Phenergan SUPPOS] 25 mg VA Q6HR PRN #20 supp.rect 09/01/20 Unknown Rx Hyoscyamine Subl [Levsin Sl 0.125 0.125 mg PO Q4HR #20 tablet 09/21/20 Unknown Rx TAB] Promethazine [Phenergan] 25 mg PO Q6HR PRN #20 tab 09/21/20 Unknown Rx Gabapentin 100 mg PO Q8HR #12 capsule 10/01/20 Unknown Rx Promethazine [Phenergan] 25 mg PO Q6HR PRN #20 tab 10/01/20 Unknown Rx Chlorhexidine Mouthwash [Peridex] 15 ml MM BID #1 bottle 10/26/20 Unknown Rx Promethazine [Phenergan SUPPOS] 25 mg VA Q6HR PRN #15 supp.rect 10/26/20 Unknown Rx Acetaminophen [Non-Aspirin Extra 500 mg PO Q6HR PRN #30 tablet 12/04/20 Unknown Rx Strength] Dicyclomine [Bentyl] 20 mg PO QID PRN #20 tablet 12/04/20 Unknown Rx Elina Root [Elina] 250 mg PO QID PRN #30 capsule 12/04/20 Unknown Rx Promethazine [Phenergan SUPPOS] 25 mg VA Q6HR PRN #5 supp.rect 12/04/20 Unknown Rx Promethazine [Phenergan] 25 mg PO Q6HR PRN #20 tab 12/04/20 Unknown Rx Allergies Allergy/AdvReac Type Severity Reaction Status Date / Time codeine Allergy Itching Verified 09/01/20 09:54 fentanyl Allergy Hives Verified 09/01/20 09:54 ketorolac tromethamine Allergy Itching Verified 09/01/20 09:54 [From Toradol] metoclopramide HCl Allergy Hives Verified 09/01/20 09:54 [From Reglan] morphine Allergy Hives Verified 09/01/20 09:54 prochlorperazine edisylate Allergy Hives Verified 09/01/20 09:54 [From Compazine] prochlorperazine maleate Allergy Hives Verified 09/01/20 09:54 [From Compazine] ED Review of Systems ROS: Stated complaint: HYPERTENSION Other details as noted in HPI Comment: All other systems reviewed and negative Constitutional: denies: fever, malaise Respiratory: denies: cough, shortness of breath Gastrointestinal: abdominal pain, nausea. denies: vomiting, diarrhea, constipation Musculoskeletal: denies: back pain ED Past Medical Hx - Past Medical History Previous Medical History?: Yes Hx Hypertension: Yes Hx GERD: Yes (Gastroparesis, Chronic Pancreatitis) Hx Renal Disease: Yes (renal failure- now in remission) Hx Kidney Stones: Yes Hx Asthma: Yes Additional medical history: ovarian/lung ca, gastroparesis, IBS, chronic pancreatitis, anemia. (LYMPHOMA LUNG), pyelonephritis, herpes, Small bowel obstruction,. PORT RIGHT CHEST - Surgical History Past Surgical History?: Yes Hx Cholecystectomy: Yes Additional Surgical History: fistula repair, lower bowel dissection, stents (in/out), hysterectomy 2007. Power port - Family History Family history: hypertension - Social History Smoking Status: Never Smoker Substance Use Type: None - Medications Home Medications: Home Medications Medication Instructions Recorded Confirmed Last Taken Type Ondansetron (Nf) [Zofran TAB] 8 mg PO Q8HR PRN #14 tablet 11/14/18 Unknown Rx Pantoprazole [Protonix TAB] 40 mg PO QDAY #14 tablet 11/14/18 Unknown Rx Ondansetron [Zofran Odt] 4 mg PO Q4HR PRN #20 tab.rapdis 12/27/19 Unknown Rx Promethazine [Phenergan] 25 mg PO Q6HR PRN #20 tab 02/26/20 Unknown Rx Diphenoxylate/Atropine [Lomotil] 1 - 2 tab PO QID PRN #20 tablet 04/13/20 Unknown Rx Promethazine [Phenergan] 25 mg PO Q6HR PRN #20 tab 05/22/20 Unknown Rx Promethazine [Phenergan] 25 mg PO Q6HR PRN #20 tab 06/10/20 Unknown Rx Promethazine [Phenergan] 25 mg PO Q6HR PRN #20 tab 06/26/20 Unknown Rx Dicyclomine [Bentyl] 20 mg PO Q6H PRN #30 tablet 07/25/20 Unknown Rx Famotidine [Pepcid] 20 mg PO Q12H #60 tablet 07/25/20 Unknown Rx Promethazine HCl [Phenergan SUPPOS] 25 mg RC BID #10 supp.rect 07/25/20 Unknown Rx Promethazine [Phenergan] 25 mg PO Q6HR PRN #20 tab 07/25/20 Unknown Rx Dicyclomine [Bentyl] 20 mg PO QID PRN #20 tablet 09/01/20 Unknown Rx Promethazine [Phenergan SUPPOS] 25 mg VA Q6HR PRN #20 supp.rect 09/01/20 Unknown Rx Hyoscyamine Subl [Levsin Sl 0.125 0.125 mg PO Q4HR #20 tablet 09/21/20 Unknown Rx TAB] Promethazine [Phenergan] 25 mg PO Q6HR PRN #20 tab 09/21/20 Unknown Rx Gabapentin 100 mg PO Q8HR #12 capsule 10/01/20 Unknown Rx Promethazine [Phenergan] 25 mg PO Q6HR PRN #20 tab 10/01/20 Unknown Rx Chlorhexidine Mouthwash [Peridex] 15 ml MM BID #1 bottle 10/26/20 Unknown Rx Promethazine [Phenergan SUPPOS] 25 mg VA Q6HR PRN #15 supp.rect 10/26/20 Unknown Rx Acetaminophen [Non-Aspirin Extra 500 mg PO Q6HR PRN #30 tablet 12/04/20 Unknown Rx Strength] Dicyclomine [Bentyl] 20 mg PO QID PRN #20 tablet 12/04/20 Unknown Rx Elina Root [Elina] 250 mg PO QID PRN #30 capsule 12/04/20 Unknown Rx Promethazine [Phenergan SUPPOS] 25 mg VA Q6HR PRN #5 supp.rect 12/04/20 Unknown Rx Promethazine [Phenergan] 25 mg PO Q6HR PRN #20 tab 12/04/20 Unknown Rx ED Physical Exam - General Limitations: No Limitations General appearance: alert, in no apparent distress, other (Appears well appears comfortable nontoxic-appearing) - Head Head exam: Present: atraumatic, normocephalic - Eye Eye exam: Present: normal appearance - ENT ENT exam: Present: mucous membranes moist - Neck Neck exam: Present: normal inspection - Respiratory Respiratory exam: Present: normal lung sounds bilaterally. Absent: respiratory distress - Cardiovascular Cardiovascular Exam: Present: regular rate, normal rhythm, normal heart sounds. Absent: systolic murmur, diastolic murmur, rubs, gallop - GI/Abdominal GI/Abdominal exam: Present: soft. Absent: distended, tenderness, guarding, rebound - Extremities Exam Extremities exam: Present: normal inspection - Neurological Exam Neurological exam: Present: alert, oriented X3 - Psychiatric Psychiatric exam: Present: normal affect, normal mood - Skin Skin exam: Present: warm, dry, intact, normal color. Absent: rash ED Course Vital Signs 12/21/20 09:52 Temperature 99.0 F Pulse Rate 86 Respiratory 18 Rate O2 Sat by Pulse 98 Oximetry ED Medical Decision Making - Medical Decision Making I was informed by charge nurse that patient left AGAINST MEDICAL ADVICE while awaiting for lab draw. I did not speak to patient before she left the hospital. Critical care attestation.: If time is entered above; I have spent that time in minutes in the direct care of this critically ill patient, excluding procedure time. ED Disposition Clinical Impression: Gastroparesis Disposition: 07 LEFT AGAINST MEDICAL ADVICE Is pt being admited?: No Does the pt Need Aspirin: No Condition: Stable Instructions: Abdominal Pain (ED)
== END 2020-12-21 15:00 | disposition left against medical advice (07) ==
LOC: ED 08:44
DX: K31.84 Gastroparesis (principal); K21.9 Gastro-esophageal reflux disease without esophagitis; K86.1 Other chronic pancreatitis; N28.9 Disorder of kidney and ureter, unspecified; Z87.442 Personal history of urinary calculi; J45.909 Unspecified asthma, uncomplicated; D64.9 Anemia, unspecified; N12 Tubulo-interstitial nephritis, not specified as acute or chronic; Z98.890 Other specified postprocedural states; Z88.5 Allergy status to narcotic agent; Z88.6 Allergy status to analgesic agent; Z88.8 Allergy status to other drugs, medicaments and biological substances
CPT/HCPCS: 99282

== ENCOUNTER 2021-01-19 12:46 | Emergency (ER) | payer MEDICAID ==
--- NOTE | 2021-01-19 14:40 | Emergency Department Report ---
ED General Adult HPI - General Chief complaint: Abdominal Pain Stated complaint: ABD/BACK PAIN /VOMITING Time Seen by Provider: 01/19/21 14:09 Source: patient Mode of arrival: Ambulatory Limitations: No Limitations - Related Data Previous Rx's Medication Instructions Recorded Last Taken Type Ondansetron (Nf) [Zofran TAB] 8 mg PO Q8HR PRN #14 tablet 11/14/18 Unknown Rx Pantoprazole [Protonix TAB] 40 mg PO QDAY #14 tablet 11/14/18 Unknown Rx Ondansetron [Zofran Odt] 4 mg PO Q4HR PRN #20 tab.rapdis 12/27/19 Unknown Rx Promethazine [Phenergan] 25 mg PO Q6HR PRN #20 tab 02/26/20 Unknown Rx Diphenoxylate/Atropine [Lomotil] 1 - 2 tab PO QID PRN #20 tablet 04/13/20 Unknown Rx Promethazine [Phenergan] 25 mg PO Q6HR PRN #20 tab 05/22/20 Unknown Rx Promethazine [Phenergan] 25 mg PO Q6HR PRN #20 tab 06/10/20 Unknown Rx Promethazine [Phenergan] 25 mg PO Q6HR PRN #20 tab 06/26/20 Unknown Rx Dicyclomine [Bentyl] 20 mg PO Q6H PRN #30 tablet 07/25/20 Unknown Rx Famotidine [Pepcid] 20 mg PO Q12H #60 tablet 07/25/20 Unknown Rx Promethazine HCl [Phenergan SUPPOS] 25 mg RC BID #10 supp.rect 07/25/20 Unknown Rx Promethazine [Phenergan] 25 mg PO Q6HR PRN #20 tab 07/25/20 Unknown Rx Dicyclomine [Bentyl] 20 mg PO QID PRN #20 tablet 09/01/20 Unknown Rx Promethazine [Phenergan SUPPOS] 25 mg MN Q6HR PRN #20 supp.rect 09/01/20 Unknown Rx Hyoscyamine Subl [Levsin Sl 0.125 0.125 mg PO Q4HR #20 tablet 09/21/20 Unknown Rx TAB] Promethazine [Phenergan] 25 mg PO Q6HR PRN #20 tab 09/21/20 Unknown Rx Gabapentin 100 mg PO Q8HR #12 capsule 10/01/20 Unknown Rx Promethazine [Phenergan] 25 mg PO Q6HR PRN #20 tab 10/01/20 Unknown Rx Chlorhexidine Mouthwash [Peridex] 15 ml MM BID #1 bottle 10/26/20 Unknown Rx Promethazine [Phenergan SUPPOS] 25 mg MN Q6HR PRN #15 supp.rect 10/26/20 Unknown Rx Acetaminophen [Non-Aspirin Extra 500 mg PO Q6HR PRN #30 tablet 12/04/20 Unknown Rx Strength] Dicyclomine [Bentyl] 20 mg PO QID PRN #20 tablet 12/04/20 Unknown Rx Elina Root [Elina] 250 mg PO QID PRN #30 capsule 12/04/20 Unknown Rx Promethazine [Phenergan SUPPOS] 25 mg MN Q6HR PRN #5 supp.rect 12/04/20 Unknown Rx Promethazine [Phenergan] 25 mg PO Q6HR PRN #20 tab 12/04/20 Unknown Rx Allergies Allergy/AdvReac Type Severity Reaction Status Date / Time codeine Allergy Itching Verified 09/01/20 09:54 fentanyl Allergy Hives Verified 09/01/20 09:54 ketorolac tromethamine Allergy Itching Verified 09/01/20 09:54 [From Toradol] metoclopramide HCl Allergy Hives Verified 09/01/20 09:54 [From Reglan] morphine Allergy Hives Verified 09/01/20 09:54 prochlorperazine edisylate Allergy Hives Verified 09/01/20 09:54 [From Compazine] prochlorperazine maleate Allergy Hives Verified 09/01/20 09:54 [From Compazine] ED Review of Systems ROS: Stated complaint: ABD/BACK PAIN /VOMITING Other details as noted in HPI ED Past Medical Hx - Past Medical History Previous Medical History?: Yes Hx Hypertension: Yes Hx GERD: Yes (Gastroparesis, Chronic Pancreatitis) Hx Renal Disease: Yes (renal failure- now in remission) Hx Kidney Stones: Yes Hx Asthma: Yes Additional medical history: ovarian/lung ca, gastroparesis, IBS, chronic pancreatitis, anemia. (LYMPHOMA LUNG), pyelonephritis, herpes, Small bowel obstruction,. PORT RIGHT CHEST - Surgical History Past Surgical History?: Yes Hx Cholecystectomy: Yes Additional Surgical History: fistula repair, lower bowel dissection, stents (in/out), hysterectomy 2007. Power port - Social History Smoking Status: Never Smoker Substance Use Type: None - Medications Home Medications: Home Medications Medication Instructions Recorded Confirmed Last Taken Type Ondansetron (Nf) [Zofran TAB] 8 mg PO Q8HR PRN #14 tablet 11/14/18 Unknown Rx Pantoprazole [Protonix TAB] 40 mg PO QDAY #14 tablet 11/14/18 Unknown Rx Ondansetron [Zofran Odt] 4 mg PO Q4HR PRN #20 tab.rapdis 12/27/19 Unknown Rx Promethazine [Phenergan] 25 mg PO Q6HR PRN #20 tab 02/26/20 Unknown Rx Diphenoxylate/Atropine [Lomotil] 1 - 2 tab PO QID PRN #20 tablet 04/13/20 Unknown Rx Promethazine [Phenergan] 25 mg PO Q6HR PRN #20 tab 05/22/20 Unknown Rx Promethazine [Phenergan] 25 mg PO Q6HR PRN #20 tab 06/10/20 Unknown Rx Promethazine [Phenergan] 25 mg PO Q6HR PRN #20 tab 06/26/20 Unknown Rx Dicyclomine [Bentyl] 20 mg PO Q6H PRN #30 tablet 07/25/20 Unknown Rx Famotidine [Pepcid] 20 mg PO Q12H #60 tablet 07/25/20 Unknown Rx Promethazine HCl [Phenergan SUPPOS] 25 mg RC BID #10 supp.rect 07/25/20 Unknown Rx Promethazine [Phenergan] 25 mg PO Q6HR PRN #20 tab 07/25/20 Unknown Rx Dicyclomine [Bentyl] 20 mg PO QID PRN #20 tablet 09/01/20 Unknown Rx Promethazine [Phenergan SUPPOS] 25 mg MN Q6HR PRN #20 supp.rect 09/01/20 Unknown Rx Hyoscyamine Subl [Levsin Sl 0.125 0.125 mg PO Q4HR #20 tablet 09/21/20 Unknown Rx TAB] Promethazine [Phenergan] 25 mg PO Q6HR PRN #20 tab 09/21/20 Unknown Rx Gabapentin 100 mg PO Q8HR #12 capsule 10/01/20 Unknown Rx Promethazine [Phenergan] 25 mg PO Q6HR PRN #20 tab 10/01/20 Unknown Rx Chlorhexidine Mouthwash [Peridex] 15 ml MM BID #1 bottle 10/26/20 Unknown Rx Promethazine [Phenergan SUPPOS] 25 mg MN Q6HR PRN #15 supp.rect 10/26/20 Unknown Rx Acetaminophen [Non-Aspirin Extra 500 mg PO Q6HR PRN #30 tablet 12/04/20 Unknown Rx Strength] Dicyclomine [Bentyl] 20 mg PO QID PRN #20 tablet 12/04/20 Unknown Rx Elina Root [Elina] 250 mg PO QID PRN #30 capsule 12/04/20 Unknown Rx Promethazine [Phenergan SUPPOS] 25 mg MN Q6HR PRN #5 supp.rect 12/04/20 Unknown Rx Promethazine [Phenergan] 25 mg PO Q6HR PRN #20 tab 12/04/20 Unknown Rx ED Physical Exam - General Limitations: No Limitations ED Course Vital Signs 01/19/21 14:05 Temperature 98.8 F Pulse Rate 89 Respiratory 16 Rate Blood Pressure 120/89 [Left] O2 Sat by Pulse 100 Oximetry Critical care attestation.: If time is entered above; I have spent that time in minutes in the direct care of this critically ill patient, excluding procedure time. ED Disposition Condition: Stable Instructions: Abdominal Pain (ED)
[2021-01-19] MEDS ORDERED: METOCLOPRAMIDE 10 MG/2 ML INJ IV ONE (15:11)
[2021-01-19] MEDS ORDERED: FAMOTIDINE 20 MG/2 ML INJ IV ONE (15:11)
[2021-01-19] MEDS ORDERED: diphenhydrAMINE 50 MG/ML VIAL IV ONE ×2 (15:11→18:14)
[2021-01-19] MEDS ORDERED: MORPHINE 4 MG/1 ML INJ IV ONE ×2 (15:11→17:55)
[2021-01-19] MEDS ORDERED: SODIUM CHLORIDE 0.9% 1000 ML 1,000 ML IV ONE (15:13)
--- NOTE | 2021-01-19 15:13 | Event Note ---
ED Screening Note Date of service: 01/19/21 Time: 15:12 ED Screening Note: Patient presents with complaints of abdominal pain distention for the past few days History of gastroparesis and chronic pancreatitis Denies alcohol use Actively vomiting in room Patient states she would like to avoid a CT of the abdomen if possible This initial assessment/diagnostic orders/clinical plan/treatment(s) is/are subject to change based on patients health status, clinical progression and re- assessment by fellow clinical providers in the ED. Further treatment and workup at subsequent clinical providers discretion. Patient/guardian urged not to elope from the ED as their condition may be serious if not clinically assessed and managed. Initial orders include: Labs Meds
--- NOTE | 2021-01-19 15:26 | Emergency Department Report ---
ED Abdominal Pain HPI - General Chief Complaint: Abdominal Pain Stated Complaint: ABD/BACK PAIN /VOMITING Time Seen by Provider: 01/19/21 14:09 Source: patient Mode of arrival: Ambulatory Limitations: No Limitations - History of Present Illness Initial Comments: Patient presents with a several day history of abdominal pain. This progressively worsened. He has a history of chronic pancreatitis. These are related to surgeries. She has had multiple abdominal surgeries that ultimately resulted in a pancreas injury. She has subsequently developed ongoing and chronic pancreatitis. Patient states that the pain is been the same that she always has. There is no new symptomatology. She has no new hematuria, hematemesis, melenic stool, or trauma. She states the pain is sharp and severe. Is primarily left upper quadrant. She states that she hurts all over though. Again, this is the same pain she has with her chronic pancreatitis. She has not noticed any aggravating or alleviating factors. She does not recall eating anything that may have contributed to this outburst. - Related Data Previous Rx's Medication Instructions Recorded Last Taken Type Ondansetron (Nf) [Zofran TAB] 8 mg PO Q8HR PRN #14 tablet 11/14/18 Unknown Rx Pantoprazole [Protonix TAB] 40 mg PO QDAY #14 tablet 11/14/18 Unknown Rx Ondansetron [Zofran Odt] 4 mg PO Q4HR PRN #20 tab.rapdis 12/27/19 Unknown Rx Promethazine [Phenergan] 25 mg PO Q6HR PRN #20 tab 02/26/20 Unknown Rx Diphenoxylate/Atropine [Lomotil] 1 - 2 tab PO QID PRN #20 tablet 04/13/20 Unknown Rx Promethazine [Phenergan] 25 mg PO Q6HR PRN #20 tab 05/22/20 Unknown Rx Promethazine [Phenergan] 25 mg PO Q6HR PRN #20 tab 06/10/20 Unknown Rx Promethazine [Phenergan] 25 mg PO Q6HR PRN #20 tab 06/26/20 Unknown Rx Dicyclomine [Bentyl] 20 mg PO Q6H PRN #30 tablet 07/25/20 Unknown Rx Famotidine [Pepcid] 20 mg PO Q12H #60 tablet 07/25/20 Unknown Rx Promethazine HCl [Phenergan SUPPOS] 25 mg RC BID #10 supp.rect 07/25/20 Unknown Rx Promethazine [Phenergan] 25 mg PO Q6HR PRN #20 tab 07/25/20 Unknown Rx Dicyclomine [Bentyl] 20 mg PO QID PRN #20 tablet 09/01/20 Unknown Rx Hyoscyamine Subl [Levsin Sl 0.125 0.125 mg PO Q4HR #20 tablet 09/21/20 Unknown Rx TAB] Promethazine [Phenergan] 25 mg PO Q6HR PRN #20 tab 09/21/20 Unknown Rx Gabapentin 100 mg PO Q8HR #12 capsule 10/01/20 Unknown Rx Promethazine [Phenergan] 25 mg PO Q6HR PRN #20 tab 10/01/20 Unknown Rx Chlorhexidine Mouthwash [Peridex] 15 ml MM BID #1 bottle 10/26/20 Unknown Rx Promethazine [Phenergan SUPPOS] 25 mg VA Q6HR PRN #15 supp.rect 10/26/20 Unknown Rx Acetaminophen [Non-Aspirin Extra 500 mg PO Q6HR PRN #30 tablet 12/04/20 Unknown Rx Strength] Dicyclomine [Bentyl] 20 mg PO QID PRN #20 tablet 12/04/20 Unknown Rx Elina Root [Elnia] 250 mg PO QID PRN #30 capsule 12/04/20 Unknown Rx Promethazine [Phenergan SUPPOS] 25 mg VA Q6HR PRN #5 supp.rect 12/04/20 Unknown Rx Promethazine [Phenergan] 25 mg PO Q6HR PRN #20 tab 12/04/20 Unknown Rx HYDROcodone/APAP 5-325 [Arden 1 each PO Q6HR PRN #10 tablet 01/19/21 Unknown Rx 5-325 mg TAB] Promethazine [Phenergan SUPPOS] 25 mg VA Q6HR PRN #20 supp.rect 01/19/21 Unknown Rx Allergies Allergy/AdvReac Type Severity Reaction Status Date / Time codeine Allergy Itching Verified 09/01/20 09:54 fentanyl Allergy Hives Verified 09/01/20 09:54 ketorolac tromethamine Allergy Itching Verified 09/01/20 09:54 [From Toradol] metoclopramide HCl Allergy Hives Verified 09/01/20 09:54 [From Reglan] morphine Allergy Hives Verified 09/01/20 09:54 prochlorperazine edisylate Allergy Hives Verified 09/01/20 09:54 [From Compazine] prochlorperazine maleate Allergy Hives Verified 09/01/20 09:54 [From Compazine] ED Review of Systems ROS: Stated complaint: ABD/BACK PAIN /VOMITING Other details as noted in HPI Comment: All other systems reviewed and negative Constitutional: denies: fever Eyes: denies: eye pain ENT: denies: throat pain Respiratory: denies: cough Cardiovascular: denies: chest pain Endocrine: denies: unexplained weight loss Gastrointestinal: as per HPI Genitourinary: denies: dysuria Musculoskeletal: denies: joint swelling Skin: denies: rash Neurological: denies: headache Hematological/Lymphatic: denies: easy bruising ED Past Medical Hx - Past Medical History Previous Medical History?: Yes Hx Hypertension: Yes Hx GERD: Yes (Gastroparesis, Chronic Pancreatitis) Hx Renal Disease: Yes (renal failure- now in remission) Hx Kidney Stones: Yes Hx Asthma: Yes Additional medical history: ovarian/lung ca, gastroparesis, IBS, chronic pancreatitis, anemia. (LYMPHOMA LUNG), pyelonephritis, herpes, Small bowel obstruction,. PORT RIGHT CHEST - Surgical History Past Surgical History?: Yes Hx Cholecystectomy: Yes Additional Surgical History: fistula repair, lower bowel dissection, stents (in/out), hysterectomy 2007. Power port - Family History Family history: hypertension - Social History Smoking Status: Never Smoker Substance Use Type: None - Medications Home Medications: Home Medications Medication Instructions Recorded Confirmed Last Taken Type Ondansetron (Nf) [Zofran TAB] 8 mg PO Q8HR PRN #14 tablet 11/14/18 Unknown Rx Pantoprazole [Protonix TAB] 40 mg PO QDAY #14 tablet 11/14/18 Unknown Rx Ondansetron [Zofran Odt] 4 mg PO Q4HR PRN #20 tab.rapdis 12/27/19 Unknown Rx Promethazine [Phenergan] 25 mg PO Q6HR PRN #20 tab 02/26/20 Unknown Rx Diphenoxylate/Atropine [Lomotil] 1 - 2 tab PO QID PRN #20 tablet 04/13/20 Unknown Rx Promethazine [Phenergan] 25 mg PO Q6HR PRN #20 tab 01/15/21 Unknown Rx Promethazine [Phenergan] 25 mg PO Q6HR PRN #20 tab 06/10/20 Unknown Rx Promethazine [Phenergan] 25 mg PO Q6HR PRN #20 tab 06/26/20 Unknown Rx Dicyclomine [Bentyl] 20 mg PO Q6H PRN #30 tablet 07/25/20 Unknown Rx Famotidine [Pepcid] 20 mg PO Q12H #60 tablet 07/25/20 Unknown Rx Promethazine HCl [Phenergan SUPPOS] 25 mg RC BID #10 supp.rect 07/25/20 Unknown Rx Promethazine [Phenergan] 25 mg PO Q6HR PRN #20 tab 07/25/20 Unknown Rx Dicyclomine [Bentyl] 20 mg PO QID PRN #20 tablet 09/01/20 Unknown Rx Hyoscyamine Subl [Levsin Sl 0.125 0.125 mg PO Q4HR #20 tablet 09/21/20 Unknown Rx TAB] Promethazine [Phenergan] 25 mg PO Q6HR PRN #20 tab 09/21/20 Unknown Rx Gabapentin 100 mg PO Q8HR #12 capsule 10/01/20 Unknown Rx Promethazine [Phenergan] 25 mg PO Q6HR PRN #20 tab 10/01/20 Unknown Rx Chlorhexidine Mouthwash [Peridex] 15 ml MM BID #1 bottle 10/26/20 Unknown Rx Promethazine [Phenergan SUPPOS] 25 mg VA Q6HR PRN #15 supp.rect 10/26/20 Unknown Rx Acetaminophen [Non-Aspirin Extra 500 mg PO Q6HR PRN #30 tablet 12/04/20 Unknown Rx Strength] Dicyclomine [Bentyl] 20 mg PO QID PRN #20 tablet 12/04/20 Unknown Rx Elina Root [Elina] 250 mg PO QID PRN #30 capsule 12/04/20 Unknown Rx Promethazine [Phenergan SUPPOS] 25 mg VA Q6HR PRN #5 supp.rect 12/04/20 Unknown Rx Promethazine [Phenergan] 25 mg PO Q6HR PRN #20 tab 12/04/20 Unknown Rx HYDROcodone/APAP 5-325 [Arden 1 each PO Q6HR PRN #10 tablet 01/19/21 Unknown Rx 5-325 mg TAB] Promethazine [Phenergan SUPPOS] 25 mg VA Q6HR PRN #20 supp.rect 01/19/21 Unknown Rx ED Physical Exam - General Limitations: No Limitations General appearance: alert, in distress (Moderate discomfort) - Head Head exam: Present: atraumatic - Eye Eye exam: Present: normal appearance, EOMI. Absent: scleral icterus - ENT ENT exam: Present: normal exam, normal orophraynx, mucous membranes moist - Neck Neck exam: Present: normal inspection, full ROM. Absent: meningismus - Respiratory Respiratory exam: Present: normal lung sounds bilaterally. Absent: respiratory distress - Cardiovascular Cardiovascular Exam: Present: regular rate, normal rhythm - GI/Abdominal GI/Abdominal exam: Present: soft, tenderness (Diffuse epigastric and left upper quadrant). Absent: guarding, rebound, pulsatile mass - Extremities Exam Extremities exam: Present: normal capillary refill. Absent: pedal edema - Back Exam Back exam: Absent: CVA tenderness (R), CVA tenderness (L) - Neurological Exam Neurological exam: Present: alert, oriented X3, normal gait. Absent: motor sensory deficit - Psychiatric Psychiatric exam: Present: normal affect, normal mood - Skin Skin exam: Present: warm, dry ED Course Vital Signs 01/19/21 14:05 Temperature 98.8 F Pulse Rate 89 Respiratory 16 Rate Blood Pressure 120/89 [Left] O2 Sat by Pulse 100 Oximetry - Reevaluation(s) Reevaluation #1: 01/19/21 15:22 Patient has been seen by one of the JORDAN is is a medical screening exam. I have assumed care of this patient. Labs have been reviewed. UA has been canceled as this is unlikely to be a urinary tract infection. Patient has no urinary symptoms. Reevaluation #2: 01/19/21 17:57 Labs have been noted and discussed with the patient. ED Medical Decision Making - Lab Data Result diagrams: 01/19/21 16:00 01/19/21 16:00 - Medical Decision Making Labs of been noted. hCG has been noted and discussed with the patient. She states that due to her ovarian cancer, her hCG is always positive. She states that she has numerous tumors in there and she does not take hormone replacement therapy. At this time, she does not have evidence of bowel obstruction. There is no distention or tympany. She does not have intractable pain. She does not have intractable vomiting. There is no transaminitis. She certainly does not seem to have jaundice. I do not believe he requires CT based on her prior history and current presentation. She does not want a CT in addition. She was referred to her PCP for ongoing management. Critical Care Time: No Critical care attestation.: If time is entered above; I have spent that time in minutes in the direct care of this critically ill patient, excluding procedure time. ED Disposition Clinical Impression: Acute epigastric pain, Chronic recurrent pancreatitis Disposition: HOME / SELF CARE / HOMELESS Is pt being admited?: No Does the pt Need Aspirin: No Condition: Stable Instructions: Abdominal Pain (ED), Chronic Pancreatitis Additional Instructions: Have a clear liquid diet into your pain resolves. Then advance to a full liquid diet. Use a full liquid diet for 2 days. Then advance to a bland diet. Follow-up with your regular doctor. Return for problems. Prescriptions: HYDROcodone/APAP 5-325 [Arden 5-325 mg TAB] 1 each PO Q6HR PRN #10 tablet PRN Reason: Pain Promethazine [Phenergan SUPPOS] 25 mg VA Q6HR PRN #20 supp.rect PRN Reason: Vomiting
[2021-01-19 16:46] LABS: Basophils % (Auto) 0.7 % (0.0-1.8); Eosinophils % (Auto) 0.8 % (0.0-4.3); Hematocrit 32.2 % (30.3-42.9); Hemoglobin 10.6 gm/dl (10.1-14.3); Lymphocytes # (Auto) 2.2 K/mm3 (1.2-5.4); Lymphocytes % (Auto) 43.2 % (13.4-35.0); Mean Corpuscular HGB Conc 33 % (30-34); Mean Corpuscular Volume 87 fl (79-97); Monocytes # (Auto) 0.3 K/mm3 (0.0-0.8); Monocytes % (Auto) 6.7 % (0.0-7.3); Platelet Count 242 K/mm3 (140-440); Red Blood Count 3.71 M/mm3 (3.65-5.03); Red Cell Distribution Width 15.2 % (13.2-15.2)
[2021-01-19 16:47] LABS: Alanine Aminotransferase 9 units/L (7-56); Blood Urea Nitrogen 10 mg/dL (7-17); Calcium 8.3 mg/dL (8.4-10.2); Hemolysis Index 3
[2021-01-19 16:54] LABS: BUN/Creatinine Ratio 20
[2021-01-19 18:49] VITALS: BP 144/91
== END 2021-01-19 18:49 | disposition home or self-care (01) ==
LOC: ED 12:46
DX: K86.1 Other chronic pancreatitis (principal); R10.13 Epigastric pain; I12.9 Hypertensive chronic kidney disease with stage 1 through stage 4 chronic kidney disease, or unspecified chronic kidney disease; N18.9 Chronic kidney disease, unspecified; K21.9 Gastro-esophageal reflux disease without esophagitis; Z87.442 Personal history of urinary calculi; J45.909 Unspecified asthma, uncomplicated; Z98.890 Other specified postprocedural states; Z88.5 Allergy status to narcotic agent; Z88.6 Allergy status to analgesic agent; Z88.8 Allergy status to other drugs, medicaments and biological substances
CPT/HCPCS: 36415; 80053; 83690; 84703; 85025; 96361; 96374; 96375; 96376; 99283; J1200; J2270; J2765; J7030

== ENCOUNTER 2021-02-04 07:37 | Emergency (ER) | payer MEDICAID ==
[2021-02-04 07:55] VITALS: BP 134/94
[2021-02-04] MEDS ORDERED: diphenhydrAMINE 50 MG/ML VIAL IM ONE (08:00)
[2021-02-04] MEDS ORDERED: HALOPERIDOL LACTATE 5 MG/1 ML INJ IM ONE (08:00)
--- NOTE | 2021-02-04 08:02 | Emergency Department Report ---
ED Abdominal Pain HPI - General Stated Complaint: SEVERE ABD PAIN,VOMITING Time Seen by Provider: 02/04/21 07:54 - History of Present Illness Initial Comments: Patient presents with generalized abdominal pain. She states that she think she has about obstruction. Patient reports having abdominal pain that started last night and this morning. It is been persistent and progressively worsening. It is generally located. She has nausea and vomiting associate with this. She states that she cannot keep anything down. She tried to drink clears and rest last night. That did not help. She has had a bowel obstruction before and believes that she has a bowel obstruction at this time. There is no history of recent travel or trauma. She is had no sick contacts. There is no hematemesis or coffee-ground emesis. She states that she is not had a bowel movement in several days. Patient goes on to state that she has had some sort of abdominal cancer and ovarian cancer since she was "13 years old." She has had numerous abdominal surgeries including surgery for hysterectomy, gallbladder problems, pancreas problems, and obstruction. Severity scale (0 -10): 10 - Related Data Previous Rx's Medication Instructions Recorded Last Taken Type Ondansetron (Nf) [Zofran TAB] 8 mg PO Q8HR PRN #14 tablet 11/14/18 Unknown Rx Pantoprazole [Protonix TAB] 40 mg PO QDAY #14 tablet 11/14/18 Unknown Rx Ondansetron [Zofran Odt] 4 mg PO Q4HR PRN #20 tab.rapdis 12/27/19 Unknown Rx Promethazine [Phenergan] 25 mg PO Q6HR PRN #20 tab 02/26/20 Unknown Rx Diphenoxylate/Atropine [Lomotil] 1 - 2 tab PO QID PRN #20 tablet 04/13/20 Unknown Rx Promethazine [Phenergan] 25 mg PO Q6HR PRN #20 tab 05/22/20 Unknown Rx Promethazine [Phenergan] 25 mg PO Q6HR PRN #20 tab 06/10/20 Unknown Rx Promethazine [Phenergan] 25 mg PO Q6HR PRN #20 tab 06/26/20 Unknown Rx Dicyclomine [Bentyl] 20 mg PO Q6H PRN #30 tablet 07/25/20 Unknown Rx Famotidine [Pepcid] 20 mg PO Q12H #60 tablet 07/25/20 Unknown Rx Promethazine HCl [Phenergan SUPPOS] 25 mg RC BID #10 supp.rect 07/25/20 Unknown Rx Promethazine [Phenergan] 25 mg PO Q6HR PRN #20 tab 07/25/20 Unknown Rx Dicyclomine [Bentyl] 20 mg PO QID PRN #20 tablet 09/01/20 Unknown Rx Hyoscyamine Subl [Levsin Sl 0.125 0.125 mg PO Q4HR #20 tablet 09/21/20 Unknown Rx TAB] Promethazine [Phenergan] 25 mg PO Q6HR PRN #20 tab 09/21/20 Unknown Rx Gabapentin 100 mg PO Q8HR #12 capsule 10/01/20 Unknown Rx Promethazine [Phenergan] 25 mg PO Q6HR PRN #20 tab 10/01/20 Unknown Rx Chlorhexidine Mouthwash [Peridex] 15 ml MM BID #1 bottle 10/26/20 Unknown Rx Promethazine [Phenergan SUPPOS] 25 mg MS Q6HR PRN #15 supp.rect 10/26/20 Unknown Rx Acetaminophen [Non-Aspirin Extra 500 mg PO Q6HR PRN #30 tablet 12/04/20 Unknown Rx Strength] Dicyclomine [Bentyl] 20 mg PO QID PRN #20 tablet 12/04/20 Unknown Rx Elina Root [Elina] 250 mg PO QID PRN #30 capsule 12/04/20 Unknown Rx Promethazine [Phenergan SUPPOS] 25 mg MS Q6HR PRN #5 supp.rect 12/04/20 Unknown Rx Promethazine [Phenergan] 25 mg PO Q6HR PRN #20 tab 12/04/20 Unknown Rx HYDROcodone/APAP 5-325 [Alton 1 each PO Q6HR PRN #10 tablet 01/19/21 Unknown Rx 5-325 mg TAB] Promethazine [Phenergan SUPPOS] 25 mg MS Q6HR PRN #20 supp.rect 01/19/21 Unknown Rx Hyoscyamine Subl [Levsin Sl 0.125 0.125 mg SL Q6HR PRN #20 tab 02/04/21 Unknown Rx TAB] Allergies Allergy/AdvReac Type Severity Reaction Status Date / Time codeine Allergy Itching Verified 09/01/20 09:54 fentanyl Allergy Hives Verified 09/01/20 09:54 ketorolac tromethamine Allergy Itching Verified 09/01/20 09:54 [From Toradol] metoclopramide HCl Allergy Hives Verified 09/01/20 09:54 [From Reglan] morphine Allergy Hives Verified 09/01/20 09:54 prochlorperazine edisylate Allergy Hives Verified 09/01/20 09:54 [From Compazine] prochlorperazine maleate Allergy Hives Verified 09/01/20 09:54 [From Compazine] ED Review of Systems ROS: Stated complaint: SEVERE ABD PAIN,VOMITING Other details as noted in HPI Comment: All other systems reviewed and negative Constitutional: denies: fever Eyes: denies: vision change ENT: denies: throat pain Respiratory: denies: cough Cardiovascular: denies: chest pain Endocrine: denies: unexplained weight loss Gastrointestinal: as per HPI Genitourinary: denies: dysuria Musculoskeletal: denies: back pain Skin: denies: rash Neurological: denies: headache Hematological/Lymphatic: denies: easy bruising ED Past Medical Hx - Past Medical History Previous Medical History?: Yes Hx Hypertension: Yes Hx GERD: Yes (Gastroparesis, Chronic Pancreatitis) Hx Renal Disease: Yes (renal failure- now in remission) Hx Kidney Stones: Yes Hx Asthma: Yes Additional medical history: ovarian/lung ca, gastroparesis, IBS, chronic pancreatitis, anemia. (LYMPHOMA LUNG), pyelonephritis, herpes, Small bowel obstruction,. PORT RIGHT CHEST - Surgical History Past Surgical History?: Yes Hx Cholecystectomy: Yes Additional Surgical History: fistula repair, lower bowel dissection, stents (in/out), hysterectomy 2007. Power port - Family History Family history: hypertension - Social History Smoking Status: Never Smoker Substance Use Type: None - Medications Home Medications: Home Medications Medication Instructions Recorded Confirmed Last Taken Type Ondansetron (Nf) [Zofran TAB] 8 mg PO Q8HR PRN #14 tablet 11/14/18 Unknown Rx Pantoprazole [Protonix TAB] 40 mg PO QDAY #14 tablet 11/14/18 Unknown Rx Ondansetron [Zofran Odt] 4 mg PO Q4HR PRN #20 tab.rapdis 12/27/19 Unknown Rx Promethazine [Phenergan] 25 mg PO Q6HR PRN #20 tab 02/26/20 Unknown Rx Diphenoxylate/Atropine [Lomotil] 1 - 2 tab PO QID PRN #20 tablet 04/13/20 Unknown Rx Promethazine [Phenergan] 25 mg PO Q6HR PRN #20 tab 05/22/20 Unknown Rx Promethazine [Phenergan] 25 mg PO Q6HR PRN #20 tab 06/10/20 Unknown Rx Promethazine [Phenergan] 25 mg PO Q6HR PRN #20 tab 06/26/20 Unknown Rx Dicyclomine [Bentyl] 20 mg PO Q6H PRN #30 tablet 07/25/20 Unknown Rx Famotidine [Pepcid] 20 mg PO Q12H #60 tablet 07/25/20 Unknown Rx Promethazine HCl [Phenergan SUPPOS] 25 mg RC BID #10 supp.rect 07/25/20 Unknown Rx Promethazine [Phenergan] 25 mg PO Q6HR PRN #20 tab 07/25/20 Unknown Rx Dicyclomine [Bentyl] 20 mg PO QID PRN #20 tablet 09/01/20 Unknown Rx Hyoscyamine Subl [Levsin Sl 0.125 0.125 mg PO Q4HR #20 tablet 09/21/20 Unknown Rx TAB] Promethazine [Phenergan] 25 mg PO Q6HR PRN #20 tab 09/21/20 Unknown Rx Gabapentin 100 mg PO Q8HR #12 capsule 10/01/20 Unknown Rx Promethazine [Phenergan] 25 mg PO Q6HR PRN #20 tab 10/01/20 Unknown Rx Chlorhexidine Mouthwash [Peridex] 15 ml MM BID #1 bottle 10/26/20 Unknown Rx Promethazine [Phenergan SUPPOS] 25 mg MS Q6HR PRN #15 supp.rect 10/26/20 Unknown Rx Acetaminophen [Non-Aspirin Extra 500 mg PO Q6HR PRN #30 tablet 12/04/20 Unknown Rx Strength] Dicyclomine [Bentyl] 20 mg PO QID PRN #20 tablet 12/04/20 Unknown Rx Elina Root [Elina] 250 mg PO QID PRN #30 capsule 12/04/20 Unknown Rx Promethazine [Phenergan SUPPOS] 25 mg MS Q6HR PRN #5 supp.rect 12/04/20 Unknown Rx Promethazine [Phenergan] 25 mg PO Q6HR PRN #20 tab 12/04/20 Unknown Rx HYDROcodone/APAP 5-325 [Alton 1 each PO Q6HR PRN #10 tablet 01/19/21 Unknown Rx 5-325 mg TAB] Promethazine [Phenergan SUPPOS] 25 mg MS Q6HR PRN #20 supp.rect 01/19/21 Unknown Rx Hyoscyamine Subl [Levsin Sl 0.125 0.125 mg SL Q6HR PRN #20 tab 02/04/21 Unknown Rx TAB] ED Physical Exam - General Limitations: No Limitations, Other ( Pulse ox was noted and normal.) General appearance: alert, other ( Intermittently crying and writhing) - Head Head exam: Present: atraumatic, normocephalic, normal inspection - Eye Eye exam: Present: normal appearance, EOMI. Absent: scleral icterus - ENT ENT exam: Present: normal orophraynx, mucous membranes moist, normal external ear exam - Neck Neck exam: Present: normal inspection. Absent: meningismus - Respiratory Respiratory exam: Present: normal lung sounds bilaterally. Absent: respiratory distress - Cardiovascular Cardiovascular Exam: Present: regular rate, normal rhythm - GI/Abdominal GI/Abdominal exam: Present: soft, tenderness ( diffuse). Absent: guarding, rebound, mass - Extremities Exam Extremities exam: Present: normal capillary refill. Absent: pedal edema - Back Exam Back exam: Absent: CVA tenderness (R), CVA tenderness (L) - Neurological Exam Neurological exam: Present: alert, oriented X3, normal gait. Absent: motor sensory deficit - Psychiatric Psychiatric exam: Present: normal affect, normal mood, other ( dramatic affect) - Skin Skin exam: Present: warm, dry ED Course Vital Signs 02/04/21 07:52 Temperature 99.6 F Pulse Rate 105 H Respiratory 16 Rate Blood Pressure 134/94 [Right] O2 Sat by Pulse 100 Oximetry - Reevaluation(s) Reevaluation #1: 02/04/21 08:01 X-rays were ordered. Medications were ordered. Old records reviewed. 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 ED Medical Decision Making - Medical Decision Making Patient presents with generalized abdominal pain. There is no evidence of bowel obstruction. She certainly does not have peritoneal findings based on exam. She does not appear to be jaundiced. I am not concerned for acute hepatitis. She does not have focal tenderness in the epigastric area. She is not vomiting. It is conceivable this represents an exacerbation of chronic pancreatitis, but I do not believe any further imaging is necessary. Based on full review, in November she had had 5 CT scans in 6 months. These will not be repeated. She has no dysuria that would suggest urinary tract infection or pyelonephritis. Critical care attestation.: If time is entered above; I have spent that time in minutes in the direct care of this critically ill patient, excluding procedure time. ED Disposition Clinical Impression: Generalized abdominal pain Constipation Qualifiers: Constipation type: unspecified constipation type Qualified Code(s): K59.00 - Constipation, unspecified Disposition: HOME / SELF CARE / HOMELESS Is pt being admited?: No Condition: Stable Instructions: Abdominal Pain, Adult, Constipation, Adult Additional Instructions: Have a bland diet. Drink plenty water. Return for problems. Have a high-fiber diet. Follow-up with your regular doctor for further management and pain control. Prescriptions: Hyoscyamine Subl [Levsin Sl 0.125 TAB] 0.125 mg SL Q6HR PRN #20 tab PRN Reason: Pain , Severe (7-10) Referrals: PRIMARY MD NISH [Primary Care Provider] - 3-5 Days STEPHEN GALLEGOS MD [Staff Physician] - 3-5 Days
--- NOTE | 2021-02-04 08:53 | XRay Report ---
ABDOMINAL SERIES WITH CHEST X-RAY ONE VIEW INDICATION / CLINICAL INFORMATION: pain, h/o sbo. COMPARISON: None available. FINDINGS: TUBES / LINES: Right IJ [id number] terminates in the lower SVC. BOWEL GAS PATTERN: No significant abnormality. Cholecystectomy changes are noted. FREE AIR / EXTRALUMINAL GAS: None seen. AP CHEST: Normal heart and mediastinal structures. Clear lungs. IMPRESSION: No significant abnormality. Signer Name: Rich Mesa Jr, MD Signed: 02/04/2021 8:48 AM Workstation Name: [id number]
[2021-02-04] MEDS ORDERED: HALOPERIDOL 5 MG TAB PO ONE (09:40)
[2021-02-04] MEDS ORDERED: MAGNESIUM CITRATE 300 ML ORAL LIQD PO ONE (09:40)
== END 2021-02-04 10:43 | disposition home or self-care (01) ==
LOC: ED 07:37
DX: K59.00 Constipation, unspecified (principal); R10.84 Generalized abdominal pain; I12.9 Hypertensive chronic kidney disease with stage 1 through stage 4 chronic kidney disease, or unspecified chronic kidney disease; N18.9 Chronic kidney disease, unspecified; N17.9 Acute kidney failure, unspecified; K21.9 Gastro-esophageal reflux disease without esophagitis; J45.909 Unspecified asthma, uncomplicated; K31.84 Gastroparesis; Z87.442 Personal history of urinary calculi; K86.1 Other chronic pancreatitis; D64.9 Anemia, unspecified; C34.90 Malignant neoplasm of unspecified part of unspecified bronchus or lung; C56.9 Malignant neoplasm of unspecified ovary; Z88.5 Allergy status to narcotic agent; Z88.6 Allergy status to analgesic agent; Z88.8 Allergy status to other drugs, medicaments and biological substances
CPT/HCPCS: 74022; 99283; J1200; J1630

== ENCOUNTER 2021-02-23 22:05 | Emergency (ER) | payer MEDICAID ==
[2021-02-23] MEDS ORDERED: SODIUM CHLORIDE 0.9% 1000 ML 1,000 ML IV ONE (22:44)
--- NOTE | 2021-02-23 22:47 | Event Note ---
ED Screening Note Date of service: 02/23/21 Time: 22:45 ED Screening Note: 45-year-old female patient with history of chronic pancreatitis and gastroparesis status post total hysterectomy secondary to ovarian cancer presents to the emergency department with complaints of abdominal pain, nausea, diarrhea, and rectal bleeding starting today. Patient is scheduled to undergo endoscopy plus colonoscopy by her GI specialist next week. She began taking bowel prep as directed this week. Patient was advised to expect diarrhea but became concerned when pain and rectal bleeding developed. Patient states her pain is reminiscent of prior pancreatitis flareups. General: Awake, appropriately interactive. Tearful, appears uncomfortable. Neck: Supple. Full range of motion intact. Cardiovascular: Normal peripheral perfusion. Pulmonary: No respiratory distress. Patient is speaking normally without use of accessory muscles. Abdomen: Soft, nondistended. Diffuse abdominal tenderness, most pronounced along the left lower quadrant. Skin: No apparent rashes or lesions. Neurological: No facial asymmetry. Speech is clear. Follows commands. Patient is alert and oriented. Musculoskeletal: Moves all four extremities spontaneously with normal range of motion. Psych: Cooperative. Appropriate mood and affect. Labs and IV fluids ordered. Medications and imaging deferred to additional ED providers following full history and complete physical exam. I have greeted and performed a focused rapid initial assessment of this patient. A comprehensive ED assessment and evaluation of the patient, analysis of all test results, and completion of the medical decision-making process will be conducted by additional ED providers. This initial assessment/diagnostic orders/clinical plan/treatment(s) is/are subject to change based on patients health status, clinical progression and re-assessment. Further treatment and workup at subsequent clinical provider's discretion. Patient/guardian urged not to elope from the ED as their condition may be serious if not clinically assessed and managed.
[2021-02-23 23:26] LABS: Basophils % (Auto) 0.7 % (0.0-1.8); Eosinophils # (Auto) 0.1 K/mm3 (0.0-0.4); Eosinophils % (Auto) 1.4 % (0.0-4.3); Hematocrit 33.3 % (30.3-42.9); Hemoglobin 10.9 gm/dl (10.1-14.3); Lymphocytes # (Auto) 2.8 K/mm3 (1.2-5.4); Lymphocytes % (Auto) 52.3 % (13.4-35.0); Mean Corpuscular HGB Conc 33 % (30-34); Mean Corpuscular Volume 85 fl (79-97); Monocytes # (Auto) 0.4 K/mm3 (0.0-0.8); Monocytes % (Auto) 7.7 % (0.0-7.3); Platelet Count 250 K/mm3 (140-440); Red Blood Count 3.93 M/mm3 (3.65-5.03); Red Cell Distribution Width 15.1 % (13.2-15.2)
[2021-02-23 23:44] LABS: INR 0.83 (0.87-1.13)
[2021-02-23 23:45] LABS: Partial Thromboplastin Time 29.6 Sec. (24.2-36.6)
[2021-02-23 23:46] LABS: Alanine Aminotransferase 11 units/L (7-56); Albumin 4.6 g/dL (3.9-5); Blood Urea Nitrogen 13 mg/dL (7-17); Calcium 9.4 mg/dL (8.4-10.2); Hemolysis Index 6
[2021-02-23 23:47] LABS: BUN/Creatinine Ratio 19
[2021-02-23] MEDS ORDERED: ONDANSETRON 4 MG/2 ML INJ IV ONE (23:51)
[2021-02-23] MEDS ORDERED: diphenhydrAMINE 50 MG/ML VIAL IV ONE (23:51)
[2021-02-23] MEDS ORDERED: LACTATED RINGERS 1,000 ML IV ONE (23:51)
[2021-02-23] MEDS ORDERED: HYDROmorphone 1 MG/1 ML INJ IV ONE (23:52)
--- NOTE | 2021-02-23 23:53 | Emergency Department Report ---
ED General Adult HPI - General Chief complaint: Nausea/Vomiting/Diarrhea Stated complaint: ABD PAIN BLOODY STOOL N/V PUI?: No Time Seen by Provider: 02/23/21 23:30 Source: patient, RN notes reviewed, old records reviewed Mode of arrival: Ambulatory Limitations: No Limitations - History of Present Illness Initial comments: The patient was evaluated in the emergency department for symptoms described in the history of present illness. He/she was evaluated in the context of the global COVID-19 pandemic, which necessitated consideration that the patient might be at risk for infection with the virus that causes COVID-19. [facility] [employer] t[employer]al protocols and algorithms that pertain to the evaluation of patients at risk for COVID-19 are in a state of rapid change based on information released by regulatory bodies including the CDC and federal and state organizations. These policies and algorithms were followed during the patient's care in the emergency department. Please note that these policies, procedures and recommendations changed on a rapid basis. During the history and physical examination, I am chaperoned by armor reconnaissance vehicle driver /cnc service technician Sadie Flor. Gastroenterology: Dr. Ceullo; [facility] The patient is a 45-year-old female. I have evaluated this patient in the past. Past medical history includes gastroparesis, IBS, chronic pancreatitis, anemia, pyelonephritis, herpes, SBO, port in the chest. She also has a history of hysterectomy. The patient presents to the ER today with a complaint of diffuse abdominal pain, cramping, nausea, vomiting, and possible blood in her stool. The patient reports that she recently started Linzess. She reports that her warehouse unloader is planning a colonoscopy and endoscopy in 5 days. She reports that her warehouse unloader recommended bowel prep, starting 3 days ago, this weekend. She reports that she started bowel prep, and shortly thereafter, developed abdominal cramping, green emesis associated with retching, and "iron smelling" stool, and occasionally blood in her stool. This is similar to prior episodes of abdominal pain and cramping. She denies dysuria. She denies fever, chills, chest pain, and endorses a sensation of heartburn. She does not take systemic anticoagulation. This is similar to prior events, and she reports that her symptoms typically improve with Dilaudid, antiemetics, and Benadryl. -: Gradual, days(s) Location: abdomen Quality: aching Consistency: constant Improves with: rest Worsens with: eating, movement - Related Data Previous Rx's Medication Instructions Recorded Last Taken Type Ondansetron (Nf) [Zofran TAB] 8 mg PO Q8HR PRN #14 tablet 11/14/18 Unknown Rx Pantoprazole [Protonix TAB] 40 mg PO QDAY #14 tablet 11/14/18 Unknown Rx Ondansetron [Zofran Odt] 4 mg PO Q4HR PRN #20 tab.rapdis 12/27/19 Unknown Rx Promethazine [Phenergan] 25 mg PO Q6HR PRN #20 tab 02/26/20 Unknown Rx Diphenoxylate/Atropine [Lomotil] 1 - 2 tab PO QID PRN #20 tablet 04/13/20 Unknown Rx Promethazine [Phenergan] 25 mg PO Q6HR PRN #20 tab 05/22/20 Unknown Rx Promethazine [Phenergan] 25 mg PO Q6HR PRN #20 tab 06/10/20 Unknown Rx Promethazine [Phenergan] 25 mg PO Q6HR PRN #20 tab 06/26/20 Unknown Rx Dicyclomine [Bentyl] 20 mg PO Q6H PRN #30 tablet 07/25/20 Unknown Rx Famotidine [Pepcid] 20 mg PO Q12H #60 tablet 07/25/20 Unknown Rx Promethazine HCl [Phenergan SUPPOS] 25 mg RC BID #10 supp.rect 07/25/20 Unknown Rx Promethazine [Phenergan] 25 mg PO Q6HR PRN #20 tab 07/25/20 Unknown Rx Dicyclomine [Bentyl] 20 mg PO QID PRN #20 tablet 09/01/20 Unknown Rx Hyoscyamine Subl [Levsin Sl 0.125 0.125 mg PO Q4HR #20 tablet 09/21/20 Unknown Rx TAB] Promethazine [Phenergan] 25 mg PO Q6HR PRN #20 tab 09/21/20 Unknown Rx Gabapentin 100 mg PO Q8HR #12 capsule 10/01/20 Unknown Rx Promethazine [Phenergan] 25 mg PO Q6HR PRN #20 tab 10/01/20 Unknown Rx Chlorhexidine Mouthwash [Peridex] 15 ml MM BID #1 bottle 10/26/20 Unknown Rx Acetaminophen [Non-Aspirin Extra 500 mg PO Q6HR PRN #30 tablet 12/04/20 Unknown Rx Strength] Promethazine [Phenergan SUPPOS] 25 mg UT Q6HR PRN #5 supp.rect 12/04/20 Unknown Rx Promethazine [Phenergan] 25 mg PO Q6HR PRN #20 tab 12/04/20 Unknown Rx Promethazine [Phenergan SUPPOS] 25 mg UT Q6HR PRN #20 supp.rect 01/19/21 Unknown Rx Hyoscyamine Subl [Levsin Sl 0.125 0.125 mg SL Q6HR PRN #20 tab 02/04/21 Unknown Rx TAB] Elina Root [Elina] 250 mg PO QID PRN #30 capsule 02/24/21 Unknown Rx Ondansetron [Zofran Odt] 4 mg PO Q8HR PRN #20 tab.rapdis 02/24/21 Unknown Rx Promethazine [Phenergan SUPPOS] 25 mg UT Q6HR PRN #15 supp.rect 02/24/21 Unknown Rx Allergies Allergy/AdvReac Type Severity Reaction Status Date / Time codeine Allergy Itching Verified 09/01/20 09:54 fentanyl Allergy Hives Verified 09/01/20 09:54 ketorolac tromethamine Allergy Itching Verified 09/01/20 09:54 [From Toradol] metoclopramide HCl Allergy Hives Verified 09/01/20 09:54 [From Reglan] morphine Allergy Hives Verified 09/01/20 09:54 prochlorperazine edisylate Allergy Hives Verified 09/01/20 09:54 [From Compazine] prochlorperazine maleate Allergy Hives Verified 09/01/20 09:54 [From Compazine] ED Review of Systems ROS: Stated complaint: ABD PAIN BLOODY STOOL N/V Other details as noted in HPI Constitutional: denies: fever Eyes: denies: vision change ENT: denies: epistaxis Respiratory: denies: cough Cardiovascular: denies: chest pain Gastrointestinal: nausea, vomiting, diarrhea, other (Bloody stool). denies: hematemesis Genitourinary: denies: dysuria Neurological: weakness Hematological/Lymphatic: denies: easy bleeding ED Past Medical Hx - Past Medical History Hx Hypertension: Yes Hx GERD: Yes (Gastroparesis, Chronic Pancreatitis) Hx Renal Disease: Yes (renal failure- now in remission) Hx Kidney Stones: Yes Hx Asthma: Yes Additional medical history: ovarian/lung ca, gastroparesis, IBS, chronic pancreatitis, anemia. (LYMPHOMA LUNG), pyelonephritis, herpes, Small bowel obstruction,. PORT RIGHT CHEST - Surgical History Hx Cholecystectomy: Yes Additional Surgical History: fistula repair, lower bowel dissection, stents (in/out), hysterectomy 2007. Power port - Social History Smoking Status: Never Smoker Substance Use Type: None - Medications Home Medications: Home Medications Medication Instructions Recorded Confirmed Last Taken Type Ondansetron (Nf) [Zofran TAB] 8 mg PO Q8HR PRN #14 tablet 11/14/18 Unknown Rx Pantoprazole [Protonix TAB] 40 mg PO QDAY #14 tablet 11/14/18 Unknown Rx Ondansetron [Zofran Odt] 4 mg PO Q4HR PRN #20 tab.rapdis 12/27/19 Unknown Rx Promethazine [Phenergan] 25 mg PO Q6HR PRN #20 tab 02/26/20 Unknown Rx Diphenoxylate/Atropine [Lomotil] 1 - 2 tab PO QID PRN #20 tablet 04/13/20 Unknown Rx Promethazine [Phenergan] 25 mg PO Q6HR PRN #20 tab 05/22/20 Unknown Rx Promethazine [Phenergan] 25 mg PO Q6HR PRN #20 tab 06/10/20 Unknown Rx Promethazine [Phenergan] 25 mg PO Q6HR PRN #20 tab 06/26/20 Unknown Rx Dicyclomine [Bentyl] 20 mg PO Q6H PRN #30 tablet 07/25/20 Unknown Rx Famotidine [Pepcid] 20 mg PO Q12H #60 tablet 07/25/20 Unknown Rx Promethazine HCl [Phenergan SUPPOS] 25 mg RC BID #10 supp.rect 07/25/20 Unknown Rx Promethazine [Phenergan] 25 mg PO Q6HR PRN #20 tab 07/25/20 Unknown Rx Dicyclomine [Bentyl] 20 mg PO QID PRN #20 tablet 09/01/20 Unknown Rx Hyoscyamine Subl [Levsin Sl 0.125 0.125 mg PO Q4HR #20 tablet 09/21/20 Unknown Rx TAB] Promethazine [Phenergan] 25 mg PO Q6HR PRN #20 tab 09/21/20 Unknown Rx Gabapentin 100 mg PO Q8HR #12 capsule 10/01/20 Unknown Rx Promethazine [Phenergan] 25 mg PO Q6HR PRN #20 tab 10/01/20 Unknown Rx Chlorhexidine Mouthwash [Peridex] 15 ml MM BID #1 bottle 10/26/20 Unknown Rx Acetaminophen [Non-Aspirin Extra 500 mg PO Q6HR PRN #30 tablet 12/04/20 Unknown Rx Strength] Promethazine [Phenergan SUPPOS] 25 mg UT Q6HR PRN #5 supp.rect 12/04/20 Unknown Rx Promethazine [Phenergan] 25 mg PO Q6HR PRN #20 tab 12/04/20 Unknown Rx Promethazine [Phenergan SUPPOS] 25 mg UT Q6HR PRN #20 supp.rect 01/19/21 Unknown Rx Hyoscyamine Subl [Levsin Sl 0.125 0.125 mg SL Q6HR PRN #20 tab 02/04/21 Unknown Rx TAB] Elina Root [Elina] 250 mg PO QID PRN #30 capsule 02/24/21 Unknown Rx Ondansetron [Zofran Odt] 4 mg PO Q8HR PRN #20 tab.rapdis 02/24/21 Unknown Rx Promethazine [Phenergan SUPPOS] 25 mg UT Q6HR PRN #15 supp.rect 02/24/21 Unknown Rx ED Physical Exam - General Limitations: No Limitations General appearance: alert, in no apparent distress - Head Head exam: Present: atraumatic, normocephalic - Eye Eye exam: Present: normal appearance, EOMI. Absent: nystagmus - ENT ENT exam: Present: normal exam, normal orophraynx, mucous membranes moist, normal external ear exam - Neck Neck exam: Present: normal inspection, full ROM. Absent: tenderness, meningismus - Respiratory Respiratory exam: Present: normal lung sounds bilaterally. Absent: respiratory distress, wheezes, rales, rhonchi, stridor, decreased breath sounds - Cardiovascular Cardiovascular Exam: Present: regular rate, normal rhythm, normal heart sounds. Absent: bradycardia, tachycardia, irregular rhythm, systolic murmur, diastolic murmur, rubs, gallop - GI/Abdominal GI/Abdominal exam: Present: soft, tenderness, other (There is mild diffuse abdominal tenderness, without rebound, guarding or peritoneal sign). Absent: distended, guarding, rebound, rigid, pulsatile mass - Rectal Rectal exam: Present: normal inspection, normal rectal tone, other (Chaperoned by Sadie Flor). Absent: black stool, bloody stool, hemorrhoids, mass, tenderness - Extremities Exam Extremities exam: Present: normal inspection, full ROM, other (2+ pulses noted in the bilateral upper and lower extremities. There is no palpable cord. negative Homans sign. Muscular compartments are soft. The pelvis is stable.). Absent: pedal edema, calf tenderness - Back Exam Back exam: Present: normal inspection, full ROM. Absent: tenderness, CVA tenderness (R), CVA tenderness (L), paraspinal tenderness, vertebral tenderness - Neurological Exam Neurological exam: Present: alert, oriented X3, normal gait, other (No facial droop. Tongue midline. Extraocular movements intact bilaterally. Facial sensation intact to light touch in V1, V2, V3 distribution bilaterally. 5 and a 5 strength in 4 extremities. Sensation intact to light touch in 4 extremities.). Absent: motor sensory deficit - Psychiatric Psychiatric exam: Present: anxious - Skin Skin exam: Present: warm, dry, intact, normal color. Absent: rash ED Course Vital Signs 02/23/21 22:22 Temperature 98.5 F Pulse Rate 78 Respiratory 19 Rate Blood Pressure 136/85 O2 Sat by Pulse 100 Oximetry - Reevaluation(s) Reevaluation #1: 02/24/21 00:53 Differential diagnosis, including but not limited to: IBS, gastroparesis, obstruction, colitis, diverticulitis, medication side effect, electrolyte derangement, chronic pancreatitis, acute pancreatitis Assessment and plan: 45-year-old female, who is currently on Linzess, who reports abdominal pain, cramping, nausea, vomiting, diarrhea, and bloody bowel movements. She has mild diffuse abdominal tenderness, no blood on rectal examination, laboratory studies appear to be at baseline, including elevated lipase. She was initially medicated with Dilaudid, Benadryl, and antiemetics. She states her pain is mildly improved, but she is still having pain, and nauseous, and she endorses retching. CT scan of the abdomen pelvis was obtained, we will follow up on these results. We will treat her symptoms with Protonix, haloperidol, and reassess after results of CT scan. Low threshold to discuss with GI. Reassess after additional medications have been administered, and results of CT scan of the abdomen pelvis have been rendered. I discussed this plan of care with the patient. She is agreeable 02/24/21 03:07 Patient declined haloperidol. No active nausea or vomiting reported to myself by the patient, or by care team. Her pain is improved, but she is still having some physical pain. CT scan of the abdomen pelvis negative for acute findings. Urinalysis nonactionable. We will treat the patient with additional dose of hydromorphone, as I am sympathetic to her chronic pain. We will discuss with gastroenterology, as she is currently on Linzess, and request recommendations. Patient tells me that she plans on discontinuing this medication. She plans on following up with her outpatient warehouse unloader. Reevaluation #2: 02/24/21 03:12 Discussed history, physical, laboratory studies, CT scan findings, overall clinical impression with GI on-call, Dr. Argueta. Advises that patient may discontinue Linzess. We both agree that the patient is suitable to follow-up with her outpatient GI doctor in 5 days for repeat checkup and evaluation. Patient will be discharged at this time, all questions answered. ED Medical Decision Making - Lab Data Result diagrams: 02/23/21 23:00 02/23/21 23:00 Vital Signs 02/23/21 22:22 Temperature 98.5 F Pulse Rate 82 Respiratory 16 Rate Blood Pressure 136/85 O2 Sat by Pulse 100 Oximetry Lab Results 02/23/21 02/23/21 02/23/21 Range/Units 23:00 23:00 23:00 WBC 5.4 (4.5-11.0) K/mm3 RBC 3.93 (3.65-5.03) M/mm3 Hgb 10.9 (10.1-14.3) gm/dl Hct 33.3 (30.3-42.9) % MCV 85 (79-97) fl MCH 28 (28-32) pg MCHC 33 (30-34) % RDW 15.1 (13.2-15.2) % Plt Count 250 (140-440) K/mm3 Lymph % (Auto) 52.3 H (13.4-35.0) % Sumner % (Auto) 7.7 H (0.0-7.3) % Eos % (Auto) 1.4 (0.0-4.3) % Baso % (Auto) 0.7 (0.0-1.8) % Lymph # (Auto) 2.8 (1.2-5.4) K/mm3 Sumner # (Auto) 0.4 (0.0-0.8) K/mm3 Eos # (Auto) 0.1 (0.0-0.4) K/mm3 Baso # (Auto) 0.0 (0.0-0.1) K/mm3 Seg Neutrophils % 37.9 L (40.0-70.0) % Seg Neutrophils # 2.1 (1.8-7.7) K/mm3 PT 12.4 (12.2-14.9) Sec. INR 0.83 L (0.87-1.13) APTT 29.6 (24.2-36.6) Sec. Sodium 142 (137-145) mmol/L Potassium 4.2 (3.6-5.0) mmol/L Chloride 105.8 (98-107) mmol/L Carbon Dioxide 23 (22-30) mmol/L Anion Gap 17 mmol/L BUN 13 (7-17) mg/dL Creatinine 0.7 (0.6-1.2) mg/dL Estimated GFR > 60 ml/min BUN/Creatinine Ratio 19 % Glucose 93 (65-100) mg/dL Calcium 9.4 (8.4-10.2) mg/dL Magnesium 2.00 (1.7-2.3) mg/dL Total Bilirubin 0.20 (0.1-1.2) mg/dL AST 43 H (5-40) units/L ALT 11 (7-56) units/L Alkaline Phosphatase 65 (35-129) units/L Total Protein 7.3 (6.3-8.2) g/dL Albumin 4.6 (3.9-5) g/dL Albumin/Globulin Ratio 1.7 % Lipase 135 H (13-60) units/L HCG, Quant (0-4) mIU/mL //21 Range/Units 23:20 WBC (4.5-11.0) K/mm3 RBC (3.65-5.03) M/mm3 Hgb (10.1-14.3) gm/dl Hct (30.3-42.9) % MCV (79-97) fl MCH (28-32) pg MCHC (30-34) % RDW (13.2-15.2) % Plt Count (140-440) K/mm3 Lymph % (Auto) (13.4-35.0) % Sumner % (Auto) (0.0-7.3) % Eos % (Auto) (0.0-4.3) % Baso % (Auto) (0.0-1.8) % Lymph # (Auto) (1.2-5.4) K/mm3 Sumner # (Auto) (0.0-0.8) K/mm3 Eos # (Auto) (0.0-0.4) K/mm3 Baso # (Auto) (0.0-0.1) K/mm3 Seg Neutrophils % (40.0-70.0) % Seg Neutrophils # (1.8-7.7) K/mm3 PT (12.2-14.9) Sec. INR (0.87-1.13) APTT (24.2-36.6) Sec. Sodium (137-145) mmol/L Potassium (3.6-5.0) mmol/L Chloride (98-107) mmol/L Carbon Dioxide (22-30) mmol/L Anion Gap mmol/L BUN (7-17) mg/dL Creatinine (0.6-1.2) mg/dL Estimated GFR ml/min BUN/Creatinine Ratio % Glucose (65-100) mg/dL Calcium (8.4-10.2) mg/dL Magnesium (1.7-2.3) mg/dL Total Bilirubin (0.1-1.2) mg/dL AST (5-40) units/L ALT (7-56) units/L Alkaline Phosphatase (35-129) units/L Total Protein (6.3-8.2) g/dL Albumin (3.9-5) g/dL Albumin/Globulin Ratio % Lipase (13-60) units/L HCG, Quant 10.48 H (0-4) mIU/mL - EKG Data -: EKG Interpreted by Oh EKG shows normal: sinus rhythm Rate: normal - EKG Data 02/24/21 01:09 EKG today is interpreted 12: 58 Sinus rhythm, 65 bpm. Normal axis, normal intervals, high left ventricular voltage. Not a STEMI. - Radiology Data Radiology results: pending, report reviewed, image reviewed CT ABDOMEN AND PELVIS WITH CONTRAST INDICATION / CLINICAL INFORMATION: Abdominal pain, nausea and vomiting. TECHNIQUE: Axial CT images were obtained through the abdomen and pelvis after 100 mL's of Omnipaque [address] scans at this location are performed using CT dose reduction for ALARA by means of automated exposure control. COMPARISON: 12/04/2020 FINDINGS: LOWER CHEST: No significant abnormality. AORTA / ARTERIES: Mild atherosclerotic calcification without acute abnormality. IVC / VEINS: No significant abnormality. LYMPH NODES: No significant adenopathy. COLON: No significant abnormality. APPENDIX: No significant abnormality. STOMACH / SMALL BOWEL: No significant abnormality. PERITONEUM: No free fluid. No free air. No fluid collection. LIVER: No significant abnormality. GALLBLADDER: Cholecystectomy. BILE DUCTS: No significant abnormality. PANCREAS: No significant abnormality. SPLEEN: No significant abnormality. ADRENALS: No significant abnormality. RIGHT KIDNEY / URETER: Right renal cyst. No hydronephrosis. LEFT KIDNEY / URETER: No significant abnormality. URINARY BLADDER: No significant abnormality. REPRODUCTIVE ORGANS: Uterus is absent. No significant adnexal abnormality. SKELETAL SYSTEM: No significant abnormality. ADDITIONAL FINDINGS: None. IMPRESSION: 1. No acute intra-abdominal or intrapelvic pathology. Signer Name: Gabriel Lara DO Signed: 02/24/2021 1:22 AM Workstation Name: [id number] Critical care attestation.: If time is entered above; I have spent that time in minutes in the direct care of this critically ill patient, excluding procedure time. ED Disposition Clinical Impression: Abdominal pain, History of nausea and vomiting Disposition: HOME / SELF CARE / HOMELESS Is pt being admited?: No Does the pt Need Aspirin: No Condition: Good Additional Instructions: Patient may discontinue Linzess. Please do not take Motrin, ibuprofen, Naprosyn, Aleve. Patient may take the prescribed pain medications and nausea medications as needed and directed. Do not take metformin medication for the next 2 days, if patient takes this medication. Please follow-up with your warehouse unloader on the of this month as scheduled. Please return to the emergency room right away with new pain, worsened pain, migration of pain, projectile vomiting, change in mental status, confusion, inability to tolerate liquid feeds, new, worsened or different symptoms not present on the initial emergency room evaluation. Please have your primary care doctor or GI physician contact the medical records department to obtain copies of laboratory studies and radiology studies, to follow-up on nonemergent incidental findings. Referrals: ANN MARIE CUELLO MD [Staff Physician] - 03/01/21 Forms: Work/School Release Form(ED)
[2021-02-24] MEDS ORDERED: PANTOPRAZOLE 40 MG INJ IV ONE (00:47)
[2021-02-24 01:04] LABS: Bilirubin,Urine NEG (Negative); Blood,Urine NEG (Negative); Color,Urine Yellow (Yellow); Mucus,Urine FEW /HPF; Protein,Urine <15 mg/dL mg/dL (Negative)
[2021-02-24] MEDS: HALOPERIDOL LACTATE 5 MG/1 ML INJ IM ONE ×2 (01:40→02:50)
[2021-02-24] MEDS ORDERED: HYDROmorphone 1 MG/1 ML INJ IV ONE (03:07)
[2021-02-24 03:48] VITALS: BP 141/99
--- NOTE | 2021-02-24 07:39 | Cat Scan Report ---
CT ABDOMEN AND PELVIS WITH CONTRAST INDICATION / CLINICAL INFORMATION: Abdominal pain, nausea and vomiting. TECHNIQUE: Axial CT images were obtained through the abdomen and pelvis after 100 mL's of Omnipaque [address] scans at this location are performed using CT dose reduction for PRESLEY cornejo of automated exposure control. COMPARISON: 12/04/2020 FINDINGS: LOWER CHEST: No significant abnormality. AORTA / ARTERIES: Mild atherosclerotic calcification without acute abnormality. IVC / VEINS: No significant abnormality. LYMPH NODES: No significant adenopathy. COLON: No significant abnormality. APPENDIX: No significant abnormality. STOMACH / SMALL BOWEL: No significant abnormality. PERITONEUM: No free fluid. No free air. No fluid collection. LIVER: No significant abnormality. GALLBLADDER: Cholecystectomy. BILE DUCTS: No significant abnormality. PANCREAS: No significant abnormality. SPLEEN: No significant abnormality. ADRENALS: No significant abnormality. RIGHT KIDNEY / URETER: Right renal cyst. No hydronephrosis. LEFT KIDNEY / URETER: No significant abnormality. URINARY BLADDER: No significant abnormality. REPRODUCTIVE ORGANS: Uterus is absent. No significant adnexal abnormality. SKELETAL SYSTEM: No significant abnormality. ADDITIONAL FINDINGS: None. IMPRESSION: 1. No acute intra-abdominal or intrapelvic pathology. Signer Name: Gabriel Lara DO Signed: 02/24/2021 2:22 AM Workstation Name: [id number]
--- NOTE | 2021-02-24 11:08 | Electrocardiograph Report ---
[facility] Test Date: 2021-02-24 Test Time: 00:58:14 Pat Name: SONJA SERNA Department: Room: Gender: F [employer]: VANI : 1975 Requested By: ROSARIO HOANG Order Number: [id number] Reading MD: Clark Adrian Measurements Intervals [place] Rate: 65 P: 71 MN: 145 QRS: 49 QRSD: 92 T: 57 QT: 405 QTc: 422 Interpretive Statements Sinus rhythm Compared to ECG 12/04/2020 15:38:33 No significant changes Electronically Signed On 02-24-2021 11:08:28 EDT by Clark Adrian
== END 2021-02-24 03:44 | disposition home or self-care (01) ==
LOC: ED 22:05
DX: R10.84 Generalized abdominal pain (principal); R11.2 Nausea with vomiting, unspecified; I12.9 Hypertensive chronic kidney disease with stage 1 through stage 4 chronic kidney disease, or unspecified chronic kidney disease; N18.9 Chronic kidney disease, unspecified; N17.9 Acute kidney failure, unspecified; K21.9 Gastro-esophageal reflux disease without esophagitis; Z87.442 Personal history of urinary calculi; Z85.9 Personal history of malignant neoplasm, unspecified; D64.9 Anemia, unspecified; K86.1 Other chronic pancreatitis; Z90.710 Acquired absence of both cervix and uterus; Z98.890 Other specified postprocedural states; Z88.5 Allergy status to narcotic agent; Z88.6 Allergy status to analgesic agent; Z88.8 Allergy status to other drugs, medicaments and biological substances
CPT/HCPCS: 36415; 74177; 80053; 81001; 83690; 83735; 84702; 85025; 85610; 85730; 87086; 93005; 96361; 96374; 96375; 96376; 99284; C9113; J1170; J1200; J1630; J2405; J7030; J7120; Q9967

== ENCOUNTER 2021-03-29 22:30 | Emergency (ER) | payer MEDICAID ==
[2021-03-29] MEDS ORDERED: MORPHINE 4 MG/1 ML INJ IV ONE (23:19)
[2021-03-29] MEDS ORDERED: SODIUM CHLORIDE 0.9% 1000 ML 1,000 ML IV ONE (23:19)
[2021-03-29] MEDS ORDERED: ONDANSETRON 4 MG/2 ML INJ IV ONE (23:19)
[2021-03-29] MEDS ORDERED: diphenhydrAMINE 50 MG/ML VIAL IV ONE (23:19)
--- NOTE | 2021-03-29 23:40 | Emergency Department Report ---
ED Abdominal Pain HPI - General Chief Complaint: Abdominal Pain Stated Complaint: ABDOMINAL PAIN Source: patient Mode of arrival: Ambulatory Limitations: No Limitations - History of Present Illness Initial Comments: Patient is a 45-year-old female who reports history of chronic pancreatitis secondary to surgical complications. Patient states that she has been dealing with this for years. She notes that it started after initial hysterectomy in 2018 then additional surgeries on her bile duct. Patient reports that she has had several days of vomiting which she describes as bile. Vomit was nonbloody. She denies any diarrhea or fever. She is also has severe abdominal pain with it concentrated in the epigastric region although her symptoms have progressed to all over her abdomen. She denies any radiation of her symptoms. MD Complaint: abdominal pain -: days(s) Location: diffuse, epigastric - Related Data Previous Rx's Medication Instructions Recorded Last Taken Type Ondansetron (Nf) [Zofran TAB] 8 mg PO Q8HR PRN #14 tablet 11/14/18 Unknown Rx Pantoprazole [Protonix TAB] 40 mg PO QDAY #14 tablet 11/14/18 Unknown Rx Ondansetron [Zofran Odt] 4 mg PO Q4HR PRN #20 tab.rapdis 12/27/19 Unknown Rx Promethazine [Phenergan] 25 mg PO Q6HR PRN #20 tab 02/26/20 Unknown Rx Diphenoxylate/Atropine [Lomotil] 1 - 2 tab PO QID PRN #20 tablet 04/13/20 Unknown Rx Promethazine [Phenergan] 25 mg PO Q6HR PRN #20 tab 05/22/20 Unknown Rx Promethazine [Phenergan] 25 mg PO Q6HR PRN #20 tab 06/10/20 Unknown Rx Promethazine [Phenergan] 25 mg PO Q6HR PRN #20 tab 06/26/20 Unknown Rx Dicyclomine [Bentyl] 20 mg PO Q6H PRN #30 tablet 07/25/20 Unknown Rx Famotidine [Pepcid] 20 mg PO Q12H #60 tablet 07/25/20 Unknown Rx Promethazine HCl [Phenergan SUPPOS] 25 mg RC BID #10 supp.rect 07/25/20 Unknown Rx Promethazine [Phenergan] 25 mg PO Q6HR PRN #20 tab 07/25/20 Unknown Rx Dicyclomine [Bentyl] 20 mg PO QID PRN #20 tablet 09/01/20 Unknown Rx Hyoscyamine Subl [Levsin Sl 0.125 0.125 mg PO Q4HR #20 tablet 09/21/20 Unknown Rx TAB] Promethazine [Phenergan] 25 mg PO Q6HR PRN #20 tab 09/21/20 Unknown Rx Gabapentin 100 mg PO Q8HR #12 capsule 10/01/20 Unknown Rx Promethazine [Phenergan] 25 mg PO Q6HR PRN #20 tab 10/01/20 Unknown Rx Chlorhexidine Mouthwash [Peridex] 15 ml MM BID #1 bottle 10/26/20 Unknown Rx Acetaminophen [Non-Aspirin Extra 500 mg PO Q6HR PRN #30 tablet 12/04/20 Unknown Rx Strength] Promethazine [Phenergan SUPPOS] 25 mg IA Q6HR PRN #5 supp.rect 12/04/20 Unknown Rx Promethazine [Phenergan] 25 mg PO Q6HR PRN #20 tab 12/04/20 Unknown Rx Promethazine [Phenergan SUPPOS] 25 mg IA Q6HR PRN #20 supp.rect 01/19/21 Unknown Rx Hyoscyamine Subl [Levsin Sl 0.125 0.125 mg SL Q6HR PRN #20 tab 02/04/21 Unknown Rx TAB] Elina Root [Elina] 250 mg PO QID PRN #30 capsule 02/24/21 Unknown Rx Ondansetron [Zofran Odt] 4 mg PO Q8HR PRN #20 tab.rapdis 02/24/21 Unknown Rx Promethazine [Phenergan SUPPOS] 25 mg IA Q6HR PRN #15 supp.rect 02/24/21 Unknown Rx oxyCODONE /ACETAMINOPHEN [Percocet 1 tab PO Q6HR PRN #12 tablet 03/30/21 Unknown Rx 5/325] Allergies Allergy/AdvReac Type Severity Reaction Status Date / Time codeine Allergy Itching Verified 09/01/20 09:54 fentanyl Allergy Hives Verified 09/01/20 09:54 ketorolac tromethamine Allergy Itching Verified 09/01/20 09:54 [From Toradol] metoclopramide HCl Allergy Hives Verified 09/01/20 09:54 [From Reglan] morphine Allergy Hives Verified 09/01/20 09:54 prochlorperazine edisylate Allergy Hives Verified 09/01/20 09:54 [From Compazine] prochlorperazine maleate Allergy Hives Verified 09/01/20 09:54 [From Compazine] ED Review of Systems ROS: Stated complaint: ABDOMINAL PAIN Other details as noted in HPI Constitutional: denies: chills, fever Eyes: denies: eye pain ENT: denies: throat pain Respiratory: denies: cough Cardiovascular: denies: chest pain Endocrine: no symptoms reported Gastrointestinal: abdominal pain, nausea, vomiting. denies: diarrhea Genitourinary: denies: urgency, dysuria Musculoskeletal: denies: back pain Skin: denies: rash Neurological: denies: headache Psychiatric: denies: anxiety, depression Hematological/Lymphatic: denies: easy bleeding ED Past Medical Hx - Past Medical History Previous Medical History?: Yes Hx Hypertension: Yes Hx GERD: Yes (Gastroparesis, Chronic Pancreatitis) Hx Renal Disease: Yes (renal failure- now in remission) Hx Kidney Stones: Yes Hx Asthma: Yes Additional medical history: ovarian/lung ca, gastroparesis, IBS, chronic pancreatitis, anemia. (LYMPHOMA LUNG), pyelonephritis, herpes, Small bowel obstruction,. PORT RIGHT CHEST - Surgical History Past Surgical History?: Yes Hx Cholecystectomy: Yes Additional Surgical History: fistula repair, lower bowel dissection, stents (in/out), hysterectomy 2007. Power port - Social History Smoking Status: Never Smoker Substance Use Type: None - Medications Home Medications: Home Medications Medication Instructions Recorded Confirmed Last Taken Type Ondansetron (Nf) [Zofran TAB] 8 mg PO Q8HR PRN #14 tablet 11/14/18 Unknown Rx Pantoprazole [Protonix TAB] 40 mg PO QDAY #14 tablet 11/14/18 Unknown Rx Ondansetron [Zofran Odt] 4 mg PO Q4HR PRN #20 tab.rapdis 12/27/19 Unknown Rx Promethazine [Phenergan] 25 mg PO Q6HR PRN #20 tab 02/26/20 Unknown Rx Diphenoxylate/Atropine [Lomotil] 1 - 2 tab PO QID PRN #20 tablet 04/13/20 Unknown Rx Promethazine [Phenergan] 25 mg PO Q6HR PRN #20 tab 05/22/20 Unknown Rx Promethazine [Phenergan] 25 mg PO Q6HR PRN #20 tab 06/10/20 Unknown Rx Promethazine [Phenergan] 25 mg PO Q6HR PRN #20 tab 06/26/20 Unknown Rx Dicyclomine [Bentyl] 20 mg PO Q6H PRN #30 tablet 07/25/20 Unknown Rx Famotidine [Pepcid] 20 mg PO Q12H #60 tablet 07/25/20 Unknown Rx Promethazine HCl [Phenergan SUPPOS] 25 mg RC BID #10 supp.rect 07/25/20 Unknown Rx Promethazine [Phenergan] 25 mg PO Q6HR PRN #20 tab 07/25/20 Unknown Rx Dicyclomine [Bentyl] 20 mg PO QID PRN #20 tablet 09/01/20 Unknown Rx Hyoscyamine Subl [Levsin Sl 0.125 0.125 mg PO Q4HR #20 tablet 09/21/20 Unknown Rx TAB] Promethazine [Phenergan] 25 mg PO Q6HR PRN #20 tab 09/21/20 Unknown Rx Gabapentin 100 mg PO Q8HR #12 capsule 10/01/20 Unknown Rx Promethazine [Phenergan] 25 mg PO Q6HR PRN #20 tab 10/01/20 Unknown Rx Chlorhexidine Mouthwash [Peridex] 15 ml MM BID #1 bottle 10/26/20 Unknown Rx Acetaminophen [Non-Aspirin Extra 500 mg PO Q6HR PRN #30 tablet 12/04/20 Unknown Rx Strength] Promethazine [Phenergan SUPPOS] 25 mg IA Q6HR PRN #5 supp.rect 12/04/20 Unknown Rx Promethazine [Phenergan] 25 mg PO Q6HR PRN #20 tab 12/04/20 Unknown Rx Promethazine [Phenergan SUPPOS] 25 mg IA Q6HR PRN #20 supp.rect 01/19/21 Un known Rx Hyoscyamine Subl [Levsin Sl 0.125 0.125 mg SL Q6HR PRN #20 tab 02/04/21 Unknown Rx TAB] Elina Root [Elina] 250 mg PO QID PRN #30 capsule 02/24/21 Unknown Rx Ondansetron [Zofran Odt] 4 mg PO Q8HR PRN #20 tab.rapdis 02/24/21 Unknown Rx Promethazine [Phenergan SUPPOS] 25 mg IA Q6HR PRN #15 supp.rect 02/24/21 Unknown Rx oxyCODONE /ACETAMINOPHEN [Percocet 1 tab PO Q6HR PRN #12 tablet 03/30/21 Unknown Rx 5/325] ED Physical Exam - General Limitations: No Limitations General appearance: alert, other (in pain) - Head Head exam: Present: atraumatic, normocephalic - Eye Eye exam: Present: normal appearance Pupils: Present: normal accommodation - ENT ENT exam: Present: normal exam - Neck Neck exam: Present: normal inspection - Respiratory Respiratory exam: Present: normal lung sounds bilaterally. Absent: respiratory distress - Cardiovascular Cardiovascular Exam: Present: regular rate, normal rhythm - GI/Abdominal GI/Abdominal exam: Present: soft, tenderness (diffuse). Absent: guarding, rebound, rigid - Rectal Rectal exam: Present: deferred - Extremities Exam Extremities exam: Present: normal inspection, full ROM. Absent: tenderness - Back Exam Back exam: Present: normal inspection - Neurological Exam Neurological exam: Present: alert, oriented X3 - Psychiatric Psychiatric exam: Present: normal affect - Skin Skin exam: Present: warm, dry, intact ED Course Vital Signs 03/29/21 03/29/21 03/29/21 22:33 23:00 23:01 Temperature 99.0 F Pulse Rate 81 71 Respiratory 18 18 18 Rate Blood Pressure 141/99 140/93 O2 Sat by Pulse 99 98 100 Oximetry 03/29/21 03/29/21 03/29/21 23:15 23:31 23:45 Temperature Pulse Rate 86 74 77 Respiratory 21 18 17 Rate Blood Pressure 153/102 153/93 155/89 O2 Sat by Pulse 99 100 99 Oximetry 03/30/21 03/30/21 03/30/21 00:15 00:24 00:31 Temperature Pulse Rate Respiratory 18 15 Rate Blood Pressure 150/95 143/102 O2 Sat by Pulse 97 97 Oximetry 03/30/21 03/30/21 03/30/21 00:45 00:54 01:01 Temperature Pulse Rate 77 75 Respiratory 19 18 15 Rate Blood Pressure 134/94 142/91 O2 Sat by Pulse 97 100 Oximetry 03/30/21 03/30/21 03/30/21 01:13 01:15 01:31 Temperature Pulse Rate 77 Respiratory 18 Rate Blood Pressure 137/96 137/96 O2 Sat by Pulse 98 100 Oximetry 03/30/21 03/30/21 03/30/21 01:43 03:59 04:01 Temperature Pulse Rate 155 H Respiratory 18 27 H 14 Rate Blood Pressure 142/89 O2 Sat by Pulse Oximetry 03/30/21 03/30/21 03/30/21 04:10 04:15 04:40 Temperature Pulse Rate 89 Respiratory 18 17 18 Rate Blood Pressure 142/89 O2 Sat by Pulse Oximetry 03/30/21 05:15 Temperature Pulse Rate 76 Respiratory Rate Blood Pressure 132/86 O2 Sat by Pulse Oximetry - Reevaluation(s) Reevaluation #1: 03/30/21 03:57 Patient reports that she still has pain and is requesting additional dose of IV pain medicine. Patient states that she would like to be discharged after I discussed her CT scan results and labs. I think this is a reasonable plan. Patient is instructed that she will be following up with her primary care doctor closely. ED Medical Decision Making - Lab Data Result diagrams: 03/30/21 00:38 03/30/21 00:38 - Medical Decision Making 45-year-old female with history of chronic pancreatitis here with complaint of abdominal pain. Plan for full evaluation including labs, lipase, urinalysis, testing. We will also obtain a CT abdomen pelvis. Will reassess after imaging and labs. Pain control has been ordered. Critical care attestation.: If time is entered above; I have spent that time in minutes in the direct care of this critically ill patient, excluding procedure time. ED Disposition Clinical Impression: Abdominal pain Disposition: HOME / SELF CARE / HOMELESS Is pt being admited?: No Does the pt Need Aspirin: No Condition: Stable Instructions: Abdominal Pain, Adult, [id number], Abdominal Pain (ED) Prescriptions: oxyCODONE /ACETAMINOPHEN [Percocet 5/325] 1 tab PO Q6HR PRN #12 tablet PRN Reason: Pain Referrals: PRIMARY CARE, [Primary Care Provider] - 3-5 Days Time of Disposition: 05:30
[2021-03-30 00:23] LABS: Bilirubin,Urine NEG (Negative); Blood,Urine SM (Negative); Color,Urine Yellow (Yellow); Protein,Urine <15 mg/dL mg/dL (Negative); Urobilinogen,Urine < 2.0 mg/dL (<2.0)
[2021-03-30 00:24] LABS: HCG Qualitative,Urine Negative (Negative)
[2021-03-30 00:45] LABS: Basophils # (Auto) 0.1 K/mm3 (0.0-0.1); Basophils % (Auto) 1.3 % (0.0-1.8); Eosinophils % (Auto) 0.8 % (0.0-4.3); Hematocrit 35.3 % (30.3-42.9); Hemoglobin 11.1 gm/dl (10.1-14.3); Lymphocytes # (Auto) 2.6 K/mm3 (1.2-5.4); Lymphocytes % (Auto) 44.8 % (13.4-35.0); Mean Corpuscular HGB Conc 31 % (30-34); Mean Corpuscular Volume 86 fl (79-97); Monocytes # (Auto) 0.5 K/mm3 (0.0-0.8); Monocytes % (Auto) 9.6 % (0.0-7.3); Platelet Count 206 K/mm3 (140-440); Red Blood Count 4.11 M/mm3 (3.65-5.03); Red Cell Distribution Width 15.2 % (13.2-15.2)
[2021-03-30] MEDS ORDERED: HYDROmorphone 1 MG/1 ML INJ IV ONE ×2 (01:06→03:29)
[2021-03-30 01:11] LABS: Alanine Aminotransferase 23 units/L (7-56); Albumin 4.4 g/dL (3.9-5); Blood Urea Nitrogen 11 mg/dL (7-17); Calcium 9.2 mg/dL (8.4-10.2); Hemolysis Index 5
[2021-03-30 01:28] LABS: BUN/Creatinine Ratio 22
--- NOTE | 2021-03-30 02:52 | Cat Scan Report ---
CT abdomen pelvis w con INDICATION / CLINICAL INFORMATION: Hx of chronic Pancreatitis, diffuse abdominal pain. TECHNIQUE: Axial CT images were obtained through the abdomen and pelvis after 100 cc Omnipaque [address] scans at this location are performed using CT dose reduction for ALARA by means of automated exposure control. COMPARISON: CT from 02/24/2021. FINDINGS: LOWER CHEST: No significant abnormality LIVER: No significant abnormality GALLBLADDER/BILIARY TREE: No significant abnormality PANCREAS: No significant abnormality. No peripancreatic inflammatory stranding. SPLEEN: No significant abnormality ADRENALS: No significant abnormality KIDNEYS / URETER: No significant abnormality URINARY BLADDER: No significant abnormality REPRODUCTIVE ORGANS: No significant abnormality STOMACH / BOWEL: No significant abnormality. The appendix is normal in caliber. LYMPH NODES: No significant adenopathy. VASCULATURE: No significant abnormality. OTHER: No free air, free fluid, or focal fluid collection is identified. SKELETAL SYSTEM: No acute osseous findings. IMPRESSION: No acute abnormality of the abdomen or pelvis. No evidence of pancreatitis Signer Name: Kody Brannon MD Signed: 03/30/2021 2:47 AM Workstation Name: [id number]
[2021-03-30 05:30] VITALS: BP 132/86
--- NOTE | 2021-03-30 18:39 | Electrocardiograph Report ---
[facility] Test Date: 2021-03-30 Test Time: 01:00:38 Pat Name: SONJA SERNA Department: Room: Gender: F [employer]: BACILIO : 1975 Requested By: ANTHONY CAMPOVERDE Order Number: [id number] Reading MD: Arthur Winston Measurements Intervals [place] Rate: 74 P: 140 NV: 159 QRS: 28 QRSD: 88 T: 125 QT: 390 QTc: 433 Interpretive Statements Normal sinus rhythm Probable lateral infarct, age indeterminate Compared to ECG 02/24/2021 00:58:14 No significant change Electronically Signed On 03-30-2021 18:38:56 EST by Arthur Winston
== END 2021-03-30 05:30 | disposition home or self-care (01) ==
LOC: ED 22:30
DX: R10.9 Unspecified abdominal pain (principal); I12.9 Hypertensive chronic kidney disease with stage 1 through stage 4 chronic kidney disease, or unspecified chronic kidney disease; N18.9 Chronic kidney disease, unspecified; K21.9 Gastro-esophageal reflux disease without esophagitis; J45.909 Unspecified asthma, uncomplicated; Z90.49 Acquired absence of other specified parts of digestive tract; Z90.710 Acquired absence of both cervix and uterus; Z98.890 Other specified postprocedural states; Z88.5 Allergy status to narcotic agent; Z88.8 Allergy status to other drugs, medicaments and biological substances
CPT/HCPCS: 36415; 74177; 80053; 81001; 81025; 83690; 84484; 85025; 93005; 96361; 96374; 96375; 96376; 99284; J1170; J1200; J1642; J2270; J2405; J7030; Q9967; Q0162

== ENCOUNTER 2021-05-08 21:20 | Emergency (ER) | payer MEDICAID ==
[2021-05-08 21:24] VITALS: BP 147/85
== END 2021-05-09 01:52 | disposition home or self-care (01) ==
LOC: ED 21:20
DX: K08.89 Other specified disorders of teeth and supporting structures (principal); R10.9 Unspecified abdominal pain; Z53.21 Procedure and treatment not carried out due to patient leaving prior to being seen by health care provider

== ENCOUNTER 2021-05-10 19:08 | Emergency (ER) | payer MEDICAID ==
[2021-05-11] MEDS ORDERED: FLUCONAZOLE 200 MG TAB PO ONE (03:24)
[2021-05-11] MEDS ORDERED: ONDANSETRON 4 MG ODT TAB PO ONE (03:24)
[2021-05-11] MEDS ORDERED: HYDROcodone/ACETAMINOPHEN 7.5-325MG TAB PO ONE (03:24)
[2021-05-11] MEDS ORDERED: AMOXICILLIN/K CLAV 875/125MG TAB PO ONE (03:24)
--- NOTE | 2021-05-11 03:50 | Emergency Department Report ---
ED General Adult HPI - General Chief complaint: Dental/Oral Stated complaint: TOOTH PAIN Source: patient Mode of arrival: Ambulatory Limitations: No Limitations - History of Present Illness Initial comments: Patient is a 45-year-old -Turkish female with a history of hypertension, chronic renal disease, ovarian and lung cancers in remission, GERD, gastroparesis, pancreatitis, asthma, kidney stones and IBS who presented to the ED with complaint of acute onset persistent severe left mandibular premolar molar toothache with swollen gums for the last 3 weeks. Patient states that he has taken various antibiotics with no relief, the initial one being amoxicillin 500 mg 3 times a day which she took for 1 week and did not help, and subsequently she also took clindamycin 300 mg every 6 hours with no relief. Patient states that in the last 2 days the pain has worsened. Patient states that she has previously taken Augmentin which usually helps with her chronic recurrent dental abscesses. Patient also complains of vaginal irritation and itching and suspect that she may be experiencing yeast infection because of the previous multiple antibiotics she has taken before. Patient denies fever, chills, nausea and vomiting, diarrhea, dizziness, syncope, chest pain, shortness of breath, change in vision or back pain, dysuria, or vaginal bleeding, fever and chills. MD Complaint: dental pain; swollen gum -: Sudden, week(s) (3) Location: mouth Radiation: non-radiation Severity scale (0 -10): 8 Quality: aching, sharp Consistency: constant Improves with: none Worsens with: eating Associated Symptoms: denies other symptoms. denies: confusion, chest pain, cough, diaphoresis, headaches, loss of appetite, malaise, nausea/vomiting, rash, shortness of breath, syncope, weakness Treatments Prior to Arrival: none - Related Data Previous Rx's Medication Instructions Recorded Last Taken Type Ondansetron (Nf) [Zofran TAB] 8 mg PO Q8HR PRN #14 tablet 11/14/18 Unknown Rx Pantoprazole [Protonix TAB] 40 mg PO QDAY #14 tablet 11/14/18 Unknown Rx Ondansetron [Zofran Odt] 4 mg PO Q4HR PRN #20 tab.rapdis 12/27/19 Unknown Rx Promethazine [Phenergan] 25 mg PO Q6HR PRN #20 tab 02/26/20 Unknown Rx Diphenoxylate/Atropine [Lomotil] 1 - 2 tab PO QID PRN #20 tablet 04/13/20 Unknown Rx Promethazine [Phenergan] 25 mg PO Q6HR PRN #20 tab 05/22/20 Unknown Rx Promethazine [Phenergan] 25 mg PO Q6HR PRN #20 tab 06/10/20 Unknown Rx Promethazine [Phenergan] 25 mg PO Q6HR PRN #20 tab 06/26/20 Unknown Rx Dicyclomine [Bentyl] 20 mg PO Q6H PRN #30 tablet 07/25/20 Unknown Rx Famotidine [Pepcid] 20 mg PO Q12H #60 tablet 07/25/20 Unknown Rx Promethazine HCl [Phenergan SUPPOS] 25 mg RC BID #10 supp.rect 07/25/20 Unknown Rx Promethazine [Phenergan] 25 mg PO Q6HR PRN #20 tab 07/25/20 Unknown Rx Dicyclomine [Bentyl] 20 mg PO QID PRN #20 tablet 09/01/20 Unknown Rx Hyoscyamine Subl [Levsin Sl 0.125 0.125 mg PO Q4HR #20 tablet 09/21/20 Unknown Rx TAB] Promethazine [Phenergan] 25 mg PO Q6HR PRN #20 tab 09/21/20 Unknown Rx Gabapentin 100 mg PO Q8HR #12 capsule 10/01/20 Unknown Rx Promethazine [Phenergan] 25 mg PO Q6HR PRN #20 tab 10/01/20 Unknown Rx Chlorhexidine Mouthwash [Peridex] 15 ml MM BID #1 bottle 10/26/20 Unknown Rx Acetaminophen [Non-Aspirin Extra 500 mg PO Q6HR PRN #30 tablet 12/04/20 Unknown Rx Strength] Promethazine [Phenergan SUPPOS] 25 mg DE Q6HR PRN #5 supp.rect 12/04/20 Unknown Rx Promethazine [Phenergan] 25 mg PO Q6HR PRN #20 tab 12/04/20 Unknown Rx Promethazine [Phenergan SUPPOS] 25 mg DE Q6HR PRN #20 supp.rect 01/19/21 Unknown Rx Hyoscyamine Subl [Levsin Sl 0.125 0.125 mg SL Q6HR PRN #20 tab 02/04/21 Unknown Rx TAB] Elina Root [Elina] 250 mg PO QID PRN #30 capsule 02/24/21 Unknown Rx Ondansetron [Zofran Odt] 4 mg PO Q8HR PRN #20 tab.rapdis 02/24/21 Unknown Rx Promethazine [Phenergan SUPPOS] 25 mg DE Q6HR PRN #15 supp.rect 02/24/21 Unknown Rx oxyCODONE /ACETAMINOPHEN [Percocet 1 tab PO Q6HR PRN #12 tablet 03/30/21 Unknown Rx 5/325] Amoxicillin/Potassium Clav 1 each PO Q12H #20 tablet 05/11/21 Unknown Rx [Augmentin 875-125 Tablet] Fluconazole [Diflucan TAB] 200 mg PO QDAY #2 tablet 05/11/21 Unknown Rx traMADoL [Ultram] 50 mg PO Q6HR PRN #15 tablet 05/11/21 Unknown Rx Allergies Allergy/AdvReac Type Severity Reaction Status Date / Time codeine Allergy Itching Verified 09/01/20 09:54 fentanyl Allergy Hives Verified 09/01/20 09:54 ketorolac tromethamine Allergy Itching Verified 09/01/20 09:54 [From Toradol] metoclopramide HCl Allergy Hives Verified 09/01/20 09:54 [From Reglan] morphine Allergy Hives Verified 09/01/20 09:54 prochlorperazine edisylate Allergy Hives Verified 09/01/20 09:54 [From Compazine] prochlorperazine maleate Allergy Hives Verified 09/01/20 09:54 [From Compazine] ED Review of Systems ROS: Stated complaint: TOOTH PAIN Other details as noted in HPI Constitutional: denies: chills, fever Eyes: denies: eye pain, eye discharge, vision change ENT: dental pain (Left mandibular premolar molar toothache; swollen gums). chase es: ear pain, throat pain Respiratory: denies: cough, shortness of breath, wheezing Cardiovascular: denies: chest pain, palpitations Endocrine: no symptoms reported Gastrointestinal: denies: abdominal pain, nausea, vomiting, diarrhea Genitourinary: other (Vaginal irritation and itching). denies: urgency, dysuria, discharge Musculoskeletal: denies: back pain, joint swelling, arthralgia Skin: denies: rash, lesions Neurological: denies: headache, weakness, paresthesias Psychiatric: denies: anxiety, depression Hematological/Lymphatic: denies: easy bleeding, easy bruising ED Past Medical Hx - Past Medical History Hx Hypertension: Yes Hx GERD: Yes (Gastroparesis, Chronic Pancreatitis) Hx Renal Disease: Yes (renal failure- now in remission) Hx of Cancer: Yes (OVARIAN AND LUNG) Hx Kidney Stones: Yes Hx Asthma: Yes Additional medical history: ovarian/lung ca, gastroparesis, IBS, chronic pancreatitis, anemia. (LYMPHOMA LUNG), pyelonephritis, herpes, Small bowel obstruction,. PORT RIGHT CHEST - Surgical History Hx Cholecystectomy: Yes Additional Surgical History: fistula repair, lower bowel dissection, stents (in/out), hysterectomy 2007. Power port - Social History Smoking Status: Never Smoker Substance Use Type: None - Medications Home Medications: Home Medications Medication Instructions Recorded Confirmed Last Taken Type Ondansetron (Nf) [Zofran TAB] 8 mg PO Q8HR PRN #14 tablet 11/14/18 Unknown Rx Pantoprazole [Protonix TAB] 40 mg PO QDAY #14 tablet 11/14/18 Unknown Rx Ondansetron [Zofran Odt] 4 mg PO Q4HR PRN #20 tab.rapdis 12/27/19 Unknown Rx Promethazine [Phenergan] 25 mg PO Q6HR PRN #20 tab 02/26/20 Unknown Rx Diphenoxylate/Atropine [Lomotil] 1 - 2 tab PO QID PRN #20 tablet 04/13/20 Unknown Rx Promethazine [Phenergan] 25 mg PO Q6HR PRN #20 tab 05/22/20 Unknown Rx Promethazine [Phenergan] 25 mg PO Q6HR PRN #20 tab 06/10/20 Unknown Rx Promethazine [Phenergan] 25 mg PO Q6HR PRN #20 tab 06/26/20 Unknown Rx Dicyclomine [Bentyl] 20 mg PO Q6H PRN #30 tablet 07/25/20 Unknown Rx Famotidine [Pepcid] 20 mg PO Q12H #60 tablet 07/25/20 Unknown Rx Promethazine HCl [Phenergan SUPPOS] 25 mg RC BID #10 supp.rect 07/25/20 Unknown Rx Promethazine [Phenergan] 25 mg PO Q6HR PRN #20 tab 07/25/20 Unknown Rx Dicyclomine [Bentyl] 20 mg PO QID PRN #20 tablet 09/01/20 Unknown Rx Hyoscyamine Subl [Levsin Sl 0.125 0.125 mg PO Q4HR #20 tablet 09/21/20 Unknown Rx TAB] Promethazine [Phenergan] 25 mg PO Q6HR PRN #20 tab 09/21/20 Unknown Rx Gabapentin 100 mg PO Q8HR #12 capsule 10/01/20 Unknown Rx Promethazine [Phenergan] 25 mg PO Q6HR PRN #20 tab 10/01/20 Unknown Rx Chlorhexidine Mouthwash [Peridex] 15 ml MM BID #1 bottle 10/26/20 Unknown Rx Acetaminophen [Non-Aspirin Extra 500 mg PO Q6HR PRN #30 tablet 12/04/20 Unknown Rx Strength] Promethazine [Phenergan SUPPOS] 25 mg DE Q6HR PRN #5 supp.rect 12/04/20 Unknown Rx Promethazine [Phenergan] 25 mg PO Q6HR PRN #20 tab 12/04/20 Unknown Rx Promethazine [Phenergan SUPPOS] 25 mg DE Q6HR PRN #20 supp.rect 01/19/21 Unknown Rx Hyoscyamine Subl [Levsin Sl 0.125 0.125 mg SL Q6HR PRN #20 tab 02/04/21 Unknown Rx TAB] Elina Root [Elina] 250 mg PO QID PRN #30 capsule 02/24/21 Unknown Rx Ondansetron [Zofran Odt] 4 mg PO Q8HR PRN #20 tab.rapdis 02/24/21 Unknown Rx Promethazine [Phenergan SUPPOS] 25 mg DE Q6HR PRN #15 supp.rect 02/24/21 Unknown Rx oxyCODONE /ACETAMINOPHEN [Percocet 1 tab PO Q6HR PRN #12 tablet 03/30/21 Unknown Rx 5/325] Amoxicillin/Potassium Clav 1 each PO Q12H #20 tablet 05/11/21 Unknown Rx [Augmentin 875-125 Tablet] Fluconazole [Diflucan TAB] 200 mg PO QDAY #2 tablet 05/11/21 Unknown Rx traMADoL [Ultram] 50 mg PO Q6HR PRN #15 tablet 05/11/21 Unknown Rx ED Physical Exam - General Limitations: No Limitations General appearance: alert, in no apparent distress - Head Head exam: Present: atraumatic, normocephalic, normal inspection - Eye Eye exam: Present: normal appearance, PERRL, EOMI Pupils: Present: normal accommodation - ENT ENT exam: Present: normal exam, mucous membranes moist, TM's normal bilaterally, normal external ear exam, other (Palpable left mandibular gingival swelling and tenderness; palpable left mandibular premolar and molar teeth tenderness) - Neck Neck exam: Present: normal inspection - Respiratory Respiratory exam: Present: normal lung sounds bilaterally. Absent: respiratory distress - Cardiovascular Cardiovascular Exam: Present: regular rate, normal rhythm. Absent: systolic murmur, diastolic murmur, rubs, gallop - GI/Abdominal GI/Abdominal exam: Present: soft, normal bowel sounds. Absent: tenderness, guarding, rebound, hyperactive bowel sounds, hypoactive bowel sounds, organomegaly - Extremities Exam Extremities exam: Present: normal inspection, full ROM, normal capillary refill - Back Exam Back exam: Present: normal inspection, full ROM. Absent: tenderness, CVA tenderness (R), CVA tenderness (L), muscle spasm, paraspinal tenderness - Neurological Exam Neurological exam: Present: alert, oriented X3, CN II-XII intact, normal gait, reflexes normal - Psychiatric Psychiatric exam: Present: normal affect, normal mood - Skin Skin exam: Present: warm, dry, intact, normal color. Absent: rash ED Course Vital Signs 05/10/21 22:05 Temperature 98.5 F Pulse Rate 78 Respiratory 18 Rate Blood Pressure 137/89 O2 Sat by Pulse 100 Oximetry ED Medical Decision Making - Medical Decision Making This is a 45-year-old -Turkish female with a history of hypertension, chronic renal disease, ovarian and lung cancers in remission, GERD, gastroparesis, pancreatitis, asthma, kidney stones and IBS who presented to the ED with complaint of acute onset persistent severe left mandibular premolar molar toothache with swollen gums for the last 3 weeks. Patient states that he has taken various antibiotics with no relief, the initial one being amoxicillin 500 mg 3 times a day which she took for 1 week and did not help, and subsequently she also took clindamycin 300 mg every 6 hours with no relief. Patient states that in the last 2 days the pain has worsened. Patient states that she has previously taken Augmentin which usually helps with her chronic recurrent dental abscesses. Patient also complains of vaginal irritation and itching and suspect that she may be experiencing yeast infection because of the previous multiple antibiotics she has taken before. In the ED, patient is alert and oriented x3 and is not in any distress. Patient is hemodynamically stable. Patient was treated for pain in the ED, also received oral antibiotics in the ED and an antifungal for suspected vaginal yeast infection. On reevaluation, patient's pain is well controlled medication. Patient discharged home on medications and advised to follow-up with a dentist in 7 to 10 days for reevaluation. Patient was advised return to the ED immediately if symptoms get worse. - Differential Diagnosis Dental abscess; gingivitis; dental caries; Critical care attestation.: If time is entered above; I have spent that time in minutes in the direct care of this critically ill patient, excluding procedure time. ED Disposition Clinical Impression: Dental abscess, Acute gingivitis Disposition: 01 HOME / SELF CARE / HOMELESS Is pt being admited?: No Does the pt Need Aspirin: No Condition: Stable Instructions: Dental Abscess, [id number], Trench Mouth Additional Instructions: Take medication with food, drink plenty of fluids and follow-up with your dentist in 7 to 10 days for reevaluation. Return to the ED immediately if symptoms get worse. Prescriptions: Amoxicillin/Potassium Clav [Augmentin 875-125 Tablet] 1 each PO Q12H #20 tablet Fluconazole [Diflucan TAB] 200 mg PO QDAY #2 tablet traMADoL [Ultram] 50 mg PO Q6HR PRN #15 tablet PRN Reason: Pain Referrals: [facility] [Outside] - 7-10 days Forms: Work/School Release Form(ED) Time of Disposition: 03:48 Print Language: [id number]
[2021-05-11 04:27] VITALS: BP 137/93
== END 2021-05-11 04:27 | disposition home or self-care (01) ==
LOC: ED 19:08
DX: K04.7 Periapical abscess without sinus (principal); K05.00 Acute gingivitis, plaque induced; I10 Essential (primary) hypertension; K21.9 Gastro-esophageal reflux disease without esophagitis; J45.909 Unspecified asthma, uncomplicated; Z90.49 Acquired absence of other specified parts of digestive tract; Z88.5 Allergy status to narcotic agent; Z88.8 Allergy status to other drugs, medicaments and biological substances; Z91.041 Radiographic dye allergy status; Z79.899 Other long term (current) drug therapy
CPT/HCPCS: 99282; J3490; Q0162

== ENCOUNTER 2021-05-24 10:09 | Emergency (ER) | payer MEDICAID | END 2021-05-24 11:48 | disposition left against medical advice (07) | LOC: ED 10:09 | DX: K08.89 Other specified disorders of teeth and supporting structures (principal); R10.9 Unspecified abdominal pain; Z53.21 Procedure and treatment not carried out due to patient leaving prior to being seen by health care provider ==

== ENCOUNTER 2021-05-29 03:31 | Emergency (ER) | payer MEDICAID ==
[2021-05-29] MEDS ORDERED: FAMOTIDINE 20 MG/2 ML INJ IV ONE ×3 (04:25→09:00)
[2021-05-29] MEDS ORDERED: SODIUM CHLORIDE 0.9% 1000 ML 1,000 ML IV ONE ×2 (04:25→06:45)
[2021-05-29] MEDS ORDERED: diphenhydrAMINE 50 MG/ML VIAL IV ONE ×3 (04:25→09:00)
[2021-05-29] MEDS ORDERED: ONDANSETRON 4 MG/2 ML INJ IV ONE ×3 (04:27→09:00)
[2021-05-29] MEDS ORDERED: HYDROmorphone 1 MG/1 ML INJ IV ONE ×3 (04:27→09:00)
[2021-05-29 05:02] LABS: Hematocrit 35.1 % (30.3-42.9); Mean Corpuscular HGB Conc 32 % (30-34); Mean Corpuscular Volume 86 fl (79-97); Platelet Count 178 K/mm3 (140-440); Red Blood Count 4.06 M/mm3 (3.65-5.03); Red Cell Distribution Width 14.7 % (13.2-15.2)
--- NOTE | 2021-05-29 05:08 | Emergency Department Report ---
ED Abdominal Pain HPI - General Chief Complaint: Abdominal Pain Stated Complaint: ABD PAIN/BACK PAIN PUI?: No Source: patient Mode of arrival: Ambulatory Limitations: No Limitations - History of Present Illness Initial Comments: Patient is a 45-year-old -[place]rydein[place] female with a history of hypertension, GERD, chronic pancreatitis, gastroparesis, kidney stone, asthma, small bowel obstructions, renal failure in remission, ovarian and lung cancer in remission who presented to the ED with complaint of acute onset persistent severe diffuse lower abdominal pain, worse in the left lower quadrant and suprapubic area with intractable nausea and vomiting for 1 week. Patient states that the pain has been constant and persistent and that she was evaluated by her primary care physician a few days ago and who contacted the about 24 hours ago and told her to come to the ED for evaluation because her lipase level was elevated. Patient states that she has not been able to eat anything because of persistent nausea and vomiting and worsening pain. Patient denies fever, chills, dysuria, urinary frequency and urgency, diarrhea, dizziness, syncope, chest pain, shortness of breath, vaginal bleeding, vaginal discharge or low back pain. MD Complaint: abdominal pain (LLQ abdominal pain), other (Nausea and vomiting) -: Sudden, week(s) (2) Location: periumbilical, LLQ Radiation: LLQ Migration to: LLQ, suprapubic Severity: severe Severity scale (0 -10): 10 Quality: aching, sharp Consistency: constant Improves With: nothing Worsens With: movement Associated Symptoms: denies other symptoms, nausea, vomiting, anorexia. denies: diarrhea, fever, chills, hematemesis, melena, hematuria, syncope, other - Related Data Previous Rx's Medication Instructions Recorded Last Taken Type Ondansetron (Nf) [Zofran TAB] 8 mg PO Q8HR PRN #14 tablet 11/14/18 Unknown Rx Pantoprazole [Protonix TAB] 40 mg PO QDAY #14 tablet 11/14/18 Unknown Rx Ondansetron [Zofran Odt] 4 mg PO Q4HR PRN #20 tab.rapdis 12/27/19 Unknown Rx Promethazine [Phenergan] 25 mg PO Q6HR PRN #20 tab 02/26/20 Unknown Rx Diphenoxylate/Atropine [Lomotil] 1 - 2 tab PO QID PRN #20 tablet 12/07/20 Unknown Rx Promethazine [Phenergan] 25 mg PO Q6HR PRN #20 tab 05/22/20 Unknown Rx Promethazine [Phenergan] 25 mg PO Q6HR PRN #20 tab 06/10/20 Unknown Rx Promethazine [Phenergan] 25 mg PO Q6HR PRN #20 tab 06/26/20 Unknown Rx Dicyclomine [Bentyl] 20 mg PO Q6H PRN #30 tablet 07/25/20 Unknown Rx Famotidine [Pepcid] 20 mg PO Q12H #60 tablet 07/25/20 Unknown Rx Promethazine HCl [Phenergan SUPPOS] 25 mg RC BID #10 supp.rect 07/25/20 Unknown Rx Promethazine [Phenergan] 25 mg PO Q6HR PRN #20 tab 07/25/20 Unknown Rx Dicyclomine [Bentyl] 20 mg PO QID PRN #20 tablet 09/01/20 Unknown Rx Hyoscyamine Subl [Levsin Sl 0.125 0.125 mg PO Q4HR #20 tablet 09/21/20 Unknown Rx TAB] Promethazine [Phenergan] 25 mg PO Q6HR PRN #20 tab 09/21/20 Unknown Rx Gabapentin 100 mg PO Q8HR #12 capsule 10/01/20 Unknown Rx Promethazine [Phenergan] 25 mg PO Q6HR PRN #20 tab 10/01/20 Unknown Rx Chlorhexidine Mouthwash [Peridex] 15 ml MM BID #1 bottle 10/26/20 Unknown Rx Acetaminophen [Non-Aspirin Extra 500 mg PO Q6HR PRN #30 tablet 12/04/20 Unknown Rx Strength] Promethazine [Phenergan SUPPOS] 25 mg AK Q6HR PRN #5 supp.rect 12/04/20 Unknown Rx Promethazine [Phenergan] 25 mg PO Q6HR PRN #20 tab 12/04/20 Unknown Rx Promethazine [Phenergan SUPPOS] 25 mg AK Q6HR PRN #20 supp.rect 01/19/21 Unknown Rx Hyoscyamine Subl [Levsin Sl 0.125 0.125 mg SL Q6HR PRN #20 tab 02/04/21 Unknown Rx TAB] Elina Root [Elina] 250 mg PO QID PRN #30 capsule 02/24/21 Unknown Rx Promethazine [Phenergan SUPPOS] 25 mg AK Q6HR PRN #15 supp.rect 02/24/21 Unknown Rx oxyCODONE /ACETAMINOPHEN [Percocet 1 tab PO Q6HR PRN #12 tablet 03/30/21 Unknown Rx 5/325] Amoxicillin/Potassium Clav 1 each PO Q12H #20 tablet 05/11/21 Unknown Rx [Augmentin 875-125 Tablet] Fluconazole [Diflucan TAB] 200 mg PO QDAY #2 tablet 05/11/21 Unknown Rx traMADoL [Ultram] 50 mg PO Q6HR PRN #15 tablet 05/11/21 Unknown Rx Dicyclomine [Bentyl] 20 mg PO Q6H PRN #30 tablet 05/29/21 Unknown Rx Ondansetron [Zofran ODT TAB] 4 mg PO Q8HR PRN #20 tab.rapdis 05/29/21 Unknown Rx Allergies Allergy/AdvReac Type Severity Reaction Status Date / Time codeine Allergy Itching Verified 09/01/20 09:54 fentanyl Allergy Hives Verified 09/01/20 09:54 ketorolac tromethamine Allergy Itching Verified 09/01/20 09:54 [From Toradol] metoclopramide HCl Allergy Hives Verified 09/01/20 09:54 [From Reglan] morphine Allergy Hives Verified 09/01/20 09:54 prochlorperazine edisylate Allergy Hives Verified 09/01/20 09:54 [From Compazine] prochlorperazine maleate Allergy Hives Verified 09/01/20 09:54 [From Compazine] ED Review of Systems ROS: Stated complaint: ABD PAIN/BACK PAIN Other details as noted in HPI Constitutional: denies: chills, fever Eyes: denies: eye pain, eye discharge, vision change ENT: denies: ear pain, throat pain Respiratory: denies: cough, shortness of breath, wheezing Cardiovascular: denies: chest pain, palpitations Endocrine: no symptoms reported Gastrointestinal: abdominal pain (LLQ), nausea, vomiting. denies: diarrhea Genitourinary: denies: urgency, dysuria, discharge Musculoskeletal: denies: back pain, joint swelling, arthralgia Skin: denies: rash, lesions Neurological: denies: headache, weakness, paresthesias Psychiatric: denies: anxiety, depression Hematological/Lymphatic: denies: easy bleeding, easy bruising ED Past Medical Hx - Past Medical History Hx Hypertension: Yes Hx GERD: Yes (Gastroparesis, Chronic Pancreatitis) Hx Renal Disease: Yes (renal failure- now in remission) Hx Kidney Stones: Yes Hx Asthma: Yes Additional medical history: ovarian/lung ca, gastroparesis, IBS, chronic pancreatitis, anemia. (LYMPHOMA LUNG), pyelonephritis, herpes, Small bowel obstruction,. PORT RIGHT CHEST - Surgical History Hx Cholecystectomy: Yes Additional Surgical History: fistula repair, lower bowel dissection, stents (in/ out), hysterectomy 2007. Power port - Social History Smoking Status: Never Smoker Substance Use Type: None - Medications Home Medications: Home Medications Medication Instructions Recorded Confirmed Last Taken Type Ondansetron (Nf) [Zofran TAB] 8 mg PO Q8HR PRN #14 tablet 11/14/18 Unknown Rx Pantoprazole [Protonix TAB] 40 mg PO QDAY #14 tablet 11/14/18 Unknown Rx Ondansetron [Zofran Odt] 4 mg PO Q4HR PRN #20 tab.rapdis 12/27/19 Unknown Rx Promethazine [Phenergan] 25 mg PO Q6HR PRN #20 tab 02/26/20 Unknown Rx Diphenoxylate/Atropine [Lomotil] 1 - 2 tab PO QID PRN #20 tablet 04/13/20 Unknown Rx Promethazine [Phenergan] 25 mg PO Q6HR PRN #20 tab 05/22/20 Unknown Rx Promethazine [Phenergan] 25 mg PO Q6HR PRN #20 tab 06/10/20 Unknown Rx Promethazine [Phenergan] 25 mg PO Q6HR PRN #20 tab 06/26/20 Unknown Rx Dicyclomine [Bentyl] 20 mg PO Q6H PRN #30 tablet 07/25/20 Unknown Rx Famotidine [Pepcid] 20 mg PO Q12H #60 tablet 07/25/20 Unknown Rx Promethazine HCl [Phenergan SUPPOS] 25 mg RC BID #10 supp.rect 07/25/20 Unknown Rx Promethazine [Phenergan] 25 mg PO Q6HR PRN #20 tab 07/25/20 Unknown Rx Dicyclomine [Bentyl] 20 mg PO QID PRN #20 tablet 09/01/20 Unknown Rx Hyoscyamine Subl [Levsin Sl 0.125 0.125 mg PO Q4HR #20 tablet 09/21/20 Unknown Rx TAB] Promethazine [Phenergan] 25 mg PO Q6HR PRN #20 tab 09/21/20 Unknown Rx Gabapentin 100 mg PO Q8HR #12 capsule 10/01/20 Unknown Rx Promethazine [Phenergan] 25 mg PO Q6HR PRN #20 tab 10/01/20 Unknown Rx Chlorhexidine Mouthwash [Peridex] 15 ml MM BID #1 bottle 10/26/20 Unknown Rx Acetaminophen [Non-Aspirin Extra 500 mg PO Q6HR PRN #30 tablet 12/04/20 Unknown Rx Strength] Promethazine [Phenergan SUPPOS] 25 mg AK Q6HR PRN #5 supp.rect 12/04/20 Unknown Rx Promethazine [Phenergan] 25 mg PO Q6HR PRN #20 tab 12/04/20 Unknown Rx Promethazine [Phenergan SUPPOS] 25 mg AK Q6HR PRN #20 supp.rect 01/19/21 Unknown Rx Hyoscyamine Subl [Levsin Sl 0.125 0.125 mg SL Q6HR PRN #20 tab 02/04/21 Unknown Rx TAB] Elina Root [Elina] 250 mg PO QID PRN #30 capsule 02/24/21 Unknown Rx Promethazine [Phenergan SUPPOS] 25 mg AK Q6HR PRN #15 supp.rect 02/24/21 Unknown Rx oxyCODONE /ACETAMINOPHEN [Percocet 1 tab PO Q6HR PRN #12 tablet 03/30/21 Unknown Rx 5/325] Amoxicillin/Potassium Clav 1 each PO Q12H #20 tablet 05/11/21 Unknown Rx [Augmentin 875-125 Tablet] Fluconazole [Diflucan TAB] 200 mg PO QDAY #2 tablet 05/11/21 Unknown Rx traMADoL [Ultram] 50 mg PO Q6HR PRN #15 tablet 05/11/21 Unknown Rx Dicyclomine [Bentyl] 20 mg PO Q6H PRN #30 tablet 05/29/21 Unknown Rx Ondansetron [Zofran ODT TAB] 4 mg PO Q8HR PRN #20 tab.rapdis 05/29/21 Unknown Rx ED Physical Exam - General Limitations: No Limitations General appearance: alert, in no apparent distress - Head Head exam: Present: atraumatic, normocephalic, normal inspection - Eye Eye exam: Present: normal appearance, PERRL, EOMI Pupils: Present: normal accommodation - ENT ENT exam: Present: normal exam, normal orophraynx, mucous membranes moist, TM's normal bilaterally, normal external ear exam - Neck Neck exam: Present: normal inspection, full ROM - Respiratory Respiratory exam: Present: normal lung sounds bilaterally. Absent: respiratory distress, wheezes, rales, rhonchi, chest wall tenderness, accessory muscle use, decreased breath sounds, prolonged expiratory - Cardiovascular Cardiovascular Exam: Present: regular rate, normal rhythm, normal heart sounds. Absent: systolic murmur, diastolic murmur, rubs, gallop - GI/Abdominal GI/Abdominal exam: Present: soft, tenderness (Palpable LLQ and suprapubic tenderness with guarding), normal bowel sounds. Absent: guarding, rebound, hyperactive bowel sounds, hypoactive bowel sounds, organomegaly, mass - Extremities Exam Extremities exam: Present: normal inspection, full ROM, normal capillary refill. Absent: tenderness - Back Exam Back exam: Present: normal inspection, full ROM. Absent: tenderness, CVA tenderness (R), CVA tenderness (L), muscle spasm, paraspinal tenderness - Neurological Exam Neurological exam: Present: alert, oriented X3, CN II-XII intact, normal gait, reflexes normal - Psychiatric Psychiatric exam: Present: normal affect, normal mood - Skin Skin exam: Present: warm, dry, intact, normal color. Absent: rash ED Course Vital Signs 05/29/21 05/29/21 04:00 11:33 Temperature 99.2 F Pulse Rate 84 85 Respiratory 18 16 Rate Blood Pressure 132/92 128/79 [Right] O2 Sat by Pulse 100 98 Oximetry ED Medical Decision Making - Lab Data Result diagrams: 05/29/21 04:36 05/29/21 04:36 - Radiology Data Radiology results: report reviewed, image reviewed [facility] [address] [place] [address] Cat Scan Report Signed Patient: SONJA SERNA MR#: [id number] : 1975 Acct:[id number] Age/Sex: 45 / F ADM Date: 05/29/21 Loc: ED Attending Dr: Ordering Physician: WILD FORD Date of Service: 05/29/21 Procedure(s): CT abdomen pelvis w con Accession Number(s): [id number] cc: WILD FORD CT ABDOMEN AND PELVIS WITH CONTRAST HISTORY: Pt complains of abdominal pain with nausea and vomiting. COMPARISON: 03/29/2021 TECHNIQUE: CT images of the abdomen and pelvis were obtained following administration of intravenous contrast. All CT scans at this location are performed using CT dose reduction for ALARA by means of automated exposure control. CONTRAST: 100 ml of intravenous contrast administered. FINDINGS: Lungs/bones: Lung bases are clear Abdomen/pelvis: Diffuse fatty infiltration of the liver. Prior cholecystectomy. The spleen, adrenal glands, pancreas and upper GI tract appear normal. Portal vein is patent. Bilateral kidneys appear normal. The appendix appears normal. No free air in the abdomen or pelvis. No acute bone findings are seen. IMPRESSION: No acute findings. Signer Name: Osvaldo Lakhani MD Signed: 05/29/2021 6:46 AM Workstation Name: [id number] Transcribed By: CW Dictated By: WILIAN LAKHANI MD Electronically Authenticated By: WILIAN LAKHANI MD Signed Date/Time: 05/29/21645 DD/ 3 TD/TT: Print Cancel - Medical Decision Making This is a 45-year-old -Prydeinig female with a history of hypertension, GERD, chronic pancreatitis, gastroparesis, kidney stone, asthma, small bowel obs tructions, renal failure in remission, ovarian and lung cancer in remission who presented to the ED with complaint of acute onset persistent severe diffuse lower abdominal pain, worse in the left lower quadrant and suprapubic area with intractable nausea and vomiting for 1 week. Patient states that the pain has been constant and persistent and that she was evaluated by her primary care physician a few days ago and who contacted the about 24 hours ago and told her to come to the ED for evaluation because her lipase level was elevated. Patient states that she has not been able to eat anything because of persistent nausea and vomiting and worsening pain. In the ED, patient is alert and oriented x3 and is not in distress but appears to be in severe pain. Pain is especially reproducible during physical exam. Patient was treated for pain in the ED, also received antiemetics, and normal saline 1 L IV bolus x1. All lab test results were reviewed and are all nonactionable. Urinalysis is unremarkable. Abdomen pelvis CT scan with contrast showed no acute abnormalities. On reevaluation, patient's pain is well controlled medication. Patient was discharged home on medications and advised to follow-up with her primary care physician in 5 to 7 days for reevaluation or return to the ED immediately if symptoms get worse. - Differential Diagnosis Appendicitis; Pancreatitis; UTI; Kidney stones; Colitis Critical care attestation.: If time is entered above; I have spent that time in minutes in the direct care of this critically ill patient, excluding procedure time. ED Disposition Clinical Impression: Acute abdominal pain in left lower quadrant, Nausea and vomiting in adult patient Disposition: HOME / SELF CARE / HOMELESS Is pt being admited?: No Does the pt Need Aspirin: No Condition: Stable Instructions: Nausea and Vomiting, Adult, [id number], Abdominal Pain, Adult, [id number], Abdominal Pain (ED) Additional Instructions: All lab test results were reviewed and are all nonactionable. Abdomen pelvis CT scan with contrast showed no acute abnormalities. Therefore take medication with food, drink plenty of fluids and follow-up with your primary care physician in 3 to 5 days for reevaluation. Return to the ED immediately if symptoms get worse. Prescriptions: Dicyclomine [Bentyl] 20 mg PO Q6H PRN #30 tablet PRN Reason: Abdominal pain Ondansetron [Zofran ODT TAB] 4 mg PO Q8HR PRN #20 tab.rapdis PRN Reason: Nausea Referrals: [facility] [Provider Group] - 3-5 Days Time of Disposition: 06:59 Print Language: BARBADIAN
[2021-05-29 05:21] LABS: Alanine Aminotransferase 11 units/L (7-56); Albumin 4.4 g/dL (3.9-5); Blood Urea Nitrogen 9 mg/dL (7-17); Calcium 8.5 mg/dL (8.4-10.2); Hemolysis Index 2
[2021-05-29 05:22] LABS: BUN/Creatinine Ratio 13
--- NOTE | 2021-05-29 06:51 | Cat Scan Report ---
CT ABDOMEN AND PELVIS WITH CONTRAST HISTORY: Pt complains of abdominal pain with nausea and vomiting. COMPARISON: 03/29/2021 TECHNIQUE: CT images of the abdomen and pelvis were obtained following administration of intravenous contrast. All CT scans at this location are performed using CT dose reduction for ALARA by means of automated exposure control. CONTRAST: 100 ml of intravenous contrast administered. FINDINGS: Lungs/bones: Lung bases are clear Abdomen/pelvis: Diffuse fatty infiltration of the liver. Prior cholecystectomy. The spleen, adrenal glands, pancreas and upper GI tract appear normal. Portal vein is patent. Bilateral kidneys appear no rmal. The appendix appears normal. No free air in the abdomen or pelvis. No acute bone findings are s een. IMPRESSION: No acute findings. Signer Name: Osvaldo Zamora MD Signed: 05/29/2021 6:46 AM Workstation Name: [id number]
[2021-05-29 07:05] LABS: Bilirubin,Urine NEG (Negative); Blood,Urine NEG (Negative); Color,Urine Yellow (Yellow); RBC,Urine < 1.0 /HPF (0.0-6.0); Urobilinogen,Urine < 2.0 mg/dL (<2.0); WBC,Urine < 1.0 /HPF (0.0-6.0)
[2021-05-29 11:14] LABS: Basophils % (Manual) 0 % (0.0-1.8); Eosinophils % (Manual) 0 % (0.0-4.3); Total Cells Counted 100
[2021-05-29 11:15] LABS: Burr Cells Few; Platelet Estimate Consistent w Auto
[2021-05-29 11:34] VITALS: BP 128/79
== END 2021-05-29 13:54 | disposition home or self-care (01) ==
LOC: ED 03:31
DX: R10.32 Left lower quadrant pain (principal); R11.2 Nausea with vomiting, unspecified; I10 Essential (primary) hypertension; K21.9 Gastro-esophageal reflux disease without esophagitis; N28.9 Disorder of kidney and ureter, unspecified; N20.0 Calculus of kidney; J45.909 Unspecified asthma, uncomplicated; Z90.49 Acquired absence of other specified parts of digestive tract; Z98.890 Other specified postprocedural states; Z79.899 Other long term (current) drug therapy; Z79.2 Long term (current) use of antibiotics
CPT/HCPCS: 36415; 74177; 80053; 81001; 83690; 85007; 85025; 96361; 96374; 96375; 96376; 99284; J1170; J1200; J2405; J3490; J7030; Q9967; Q0162

== ENCOUNTER 2021-06-08 19:12 | Emergency (ER) | payer MEDICAID ==
[2021-06-08] MEDS ORDERED: ONDANSETRON 4 MG/2 ML INJ IV ONE (22:39)
[2021-06-08] MEDS ORDERED: FAMOTIDINE 20 MG/2 ML INJ IV ONE (22:39)
[2021-06-08] MEDS ORDERED: SODIUM CHLORIDE 0.9% 1000 ML 1,000 ML IV ONE (22:41)
--- NOTE | 2021-06-08 22:53 | Event Note ---
ED Screening Note Date of service: 06/08/21 Time: 21:20 ED Screening Note: Patient is a 45-year-old -[place] female with history of chronic GI issues including chronic pancreatitis who presented to the ED with nausea and vomiting, diarrhea and abdominal pain for the last 3 days. Patient states that she has not been able to keep anything down in the last 24 hours. Patient denies dizziness, syncope, chest pain, shortness of breath, fever, chills, dysuria, urinary frequency and urgency or change in vision. This initial assessment/diagnostic orders/clinical plan/treatment(s) is/are subject to change based on patients health status, clinical progression and re- assessment by fellow clinical providers in the ED. Further treatment and workup at subsequent clinical providers discretion. Patient/guardian urged not to elope from the ED as their condition may be serious if not clinically assessed and managed. Initial orders include: CBC, CMP, UA, lipase
[2021-06-09 00:11] LABS: Basophils # (Auto) 0.1 K/mm3 (0.0-0.1); Basophils % (Auto) 1.4 % (0.0-1.8); Eosinophils % (Auto) 0.6 % (0.0-4.3); Hematocrit 33.1 % (30.3-42.9); Hemoglobin 10.6 gm/dl (10.1-14.3); Lymphocytes # (Auto) 2.9 K/mm3 (1.2-5.4); Lymphocytes % (Auto) 51.4 % (13.4-35.0); Mean Corpuscular HGB Conc 32 % (30-34); Mean Corpuscular Volume 86 fl (79-97); Monocytes # (Auto) 0.5 K/mm3 (0.0-0.8); Monocytes % (Auto) 8.4 % (0.0-7.3); Platelet Count 311 K/mm3 (140-440); Red Blood Count 3.85 M/mm3 (3.65-5.03); Red Cell Distribution Width 14.8 % (13.2-15.2)
[2021-06-09 00:30] LABS: Alanine Aminotransferase 10 units/L (7-56); Albumin 4.4 g/dL (3.9-5); Blood Urea Nitrogen 13 mg/dL (7-17); Calcium 8.7 mg/dL (8.4-10.2); Hemolysis Index 11
[2021-06-09 00:31] LABS: BUN/Creatinine Ratio 22
[2021-06-09] MEDS ORDERED: ONDANSETRON 4 MG/2 ML INJ IV ONE (01:07)
[2021-06-09] MEDS ORDERED: HYDROmorphone 1 MG/1 ML INJ IV ONE (01:07)
[2021-06-09] MEDS ORDERED: diphenhydrAMINE 50 MG/ML VIAL IV ONE (01:20)
--- NOTE | 2021-06-09 02:58 | Emergency Department Report ---
ED N/V/D HPI - General Chief complaint: Nausea/Vomiting/Diarrhea Stated complaint: ABD/BACK PAIN Source: patient Mode of arrival: Ambulatory Limitations: No Limitations - History of Present Illness Initial comments: Patient is a 45-year-old -[place] female with history of chronic GI issues including chronic pancreatitis, GERD, IBS, kidney stones, gastroparesis, asthma, hypertension who presented to the ED with nausea and vomiting, diarrhea and abdominal pain for the last 3 days. Patient states that she has not been able to keep anything down in the last 24 hours. Patient states that the pain is typical of her chronic pain with nausea and vomiting diarrhea. Patient denies dizziness, syncope, chest pain, shortness of breath, fever, chills, dysuria, urinary frequency and urgency or change in vision. MD complaint: nausea, vomiting, diarrhea, abdominal pain -: Sudden, days(s) (3) Description of Vomiting: food contents, watery Description of Diarrhea: water Associated Abdominal Pain: Yes Location: diffuse (Diffuse) Radiation: none Severity: severe Pain Scale: 8 Quality: cramping, aching Consistency: constant Improves with: none Worsens with: none Context: other (History of chronic pancreatitis) Associated Symptoms: denies other symptoms, loss of appetite, malaise, nausea/vomiting. denies: myalgias, chest pain, cough, diaphoresis, fever/chills, headaches, rash, dysuria, shortness of breath, syncope, other - Related Data Previous Rx's Medication Instructions Recorded Last Taken Type Ondansetron (Nf) [Zofran TAB] 8 mg PO Q8HR PRN #14 tablet 11/14/18 Unknown Rx Pantoprazole [Protonix TAB] 40 mg PO QDAY #14 tablet 11/14/18 Unknown Rx Promethazine [Phenergan] 25 mg PO Q6HR PRN #20 tab 02/26/20 Unknown Rx Diphenoxylate/Atropine [Lomotil] 1 - 2 tab PO QID PRN #20 tablet 04/13/20 Unknown Rx Promethazine [Phenergan] 25 mg PO Q6HR PRN #20 tab 05/22/20 Unknown Rx Promethazine [Phenergan] 25 mg PO Q6HR PRN #20 tab 06/10/20 Unknown Rx Promethazine [Phenergan] 25 mg PO Q6HR PRN #20 tab 06/26/20 Unknown Rx Dicyclomine [Bentyl] 20 mg PO Q6H PRN #30 tablet 07/25/20 Unknown Rx Promethazine HCl [Phenergan SUPPOS] 25 mg RC BID #10 supp.rect 07/25/20 Unknown Rx Promethazine [Phenergan] 25 mg PO Q6HR PRN #20 tab 07/25/20 Unknown Rx Dicyclomine [Bentyl] 20 mg PO QID PRN #20 tablet 09/01/20 Unknown Rx Hyoscyamine Subl [Levsin Sl 0.125 0.125 mg PO Q4HR #20 tablet 09/21/20 Unknown Rx TAB] Promethazine [Phenergan] 25 mg PO Q6HR PRN #20 tab 09/21/20 Unknown Rx Gabapentin 100 mg PO Q8HR #12 capsule 10/01/20 Unknown Rx Promethazine [Phenergan] 25 mg PO Q6HR PRN #20 tab 10/01/20 Unknown Rx Chlorhexidine Mouthwash [Peridex] 15 ml MM BID #1 bottle 10/26/20 Unknown Rx Acetaminophen [Non-Aspirin Extra 500 mg PO Q6HR PRN #30 tablet 12/04/20 Unknown Rx Strength] Promethazine [Phenergan SUPPOS] [address] Q6HR PRN #5 supp.rect 12/04/20 Unknown Rx Promethazine [Phenergan] 25 mg PO Q6HR PRN #20 tab 12/04/20 Unknown Rx Promethazine [Phenergan SUPPOS] [address] Q6HR PRN #20 supp.rect 01/19/21 Unknown Rx Hyoscyamine Subl [Levsin Sl 0.125 0.125 mg SL Q6HR PRN #20 tab 02/04/21 Unknown Rx TAB] Elina Root [Elina] 250 mg PO QID PRN #30 capsule 02/24/21 Unknown Rx Promethazine [Phenergan SUPPOS] [address] Q6HR PRN #15 supp.rect 02/24/21 Unknown Rx oxyCODONE /ACETAMINOPHEN [Percocet 1 tab PO Q6HR PRN #12 tablet 03/30/21 Unknown Rx 5/325] Amoxicillin/Potassium Clav 1 each PO Q12H #20 tablet 05/11/21 Unknown Rx [Augmentin 875-125 Tablet] Fluconazole [Diflucan TAB] 200 mg PO QDAY #2 tablet 05/11/21 Unknown Rx traMADoL [Ultram] 50 mg PO Q6HR PRN #15 tablet 05/11/21 Unknown Rx Ondansetron [Zofran ODT TAB] 4 mg PO Q8HR PRN #20 tab.rapdis 05/29/21 Unknown Rx Dicyclomine [Bentyl] 20 mg PO Q6H PRN #30 tablet 06/09/21 Unknown Rx Famotidine [Pepcid] 20 mg PO Q12H #60 tablet 06/09/21 Unknown Rx Ondansetron [Zofran ODT TAB] 4 mg PO Q4HR PRN #20 tab.rapdis 06/09/21 Unknown Rx Allergies Allergy/AdvReac Type Severity Reaction Status Date / Time codeine Allergy Itching Verified 09/01/20 09:54 fentanyl Allergy Hives Verified 09/01/20 09:54 ketorolac tromethamine Allergy Itching Verified 09/01/20 09:54 [From Toradol] metoclopramide HCl Allergy Hives Verified 09/01/20 09:54 [From Reglan] morphine Allergy Hives Verified 09/01/20 09:54 prochlorperazine edisylate Allergy Hives Verified 09/01/20 09:54 [From Compazine] prochlorperazine maleate Allergy Hives Verified 09/01/20 09:54 [From Compazine] ED Review of Systems ROS: Stated complaint: ABD/BACK PAIN Other details as noted in HPI Constitutional: denies: chills, fever Eyes: denies: eye pain, eye discharge, vision change ENT: denies: ear pain, throat pain Respiratory: denies: cough, shortness of breath, wheezing Cardiovascular: denies: chest pain, palpitations Endocrine: no symptoms reported Gastrointestinal: abdominal pain, nausea, vomiting, diarrhea Genitourinary: denies: urgency, dysuria, discharge Musculoskeletal: denies: back pain, joint swelling, arthralgia Skin: denies: rash, lesions Neurological: denies: headache, weakness, paresthesias Psychiatric: denies: anxiety, depression Hematological/Lymphatic: denies: easy bleeding, easy bruising ED Past Medical Hx - Past Medical History Hx Hypertension: Yes Hx GERD: Yes (Gastroparesis, Chronic Pancreatitis) Hx Renal Disease: Yes (renal failure- now in remission) Hx Kidney Stones: Yes Hx Asthma: Yes Additional medical history: ovarian/lung ca, gastroparesis, IBS, chronic pancreatitis, anemia. (LYMPHOMA LUNG), pyelonephritis, herpes, Small bowel obstruction,. PORT RIGHT CHEST - Surgical History Hx Cholecystectomy: Yes Additional Surgical History: fistula repair, lower bowel dissection, stents (in/out), hysterectomy 2007. Power port - Social History Smoking Status: Never Smoker Substance Use Type: None - Medications Home Medications: Home Medications Medication Instructions Recorded Confirmed Last Taken Type Ondansetron (Nf) [Zofran TAB] 8 mg PO Q8HR PRN #14 tablet 11/14/18 Unknown Rx Pantoprazole [Protonix TAB] 40 mg PO QDAY #14 tablet 11/14/18 Unknown Rx Promethazine [Phenergan] 25 mg PO Q6HR PRN #20 tab 02/26/20 Unknown Rx Diphenoxylate/Atropine [Lomotil] 1 - 2 tab PO QID PRN #20 tablet 04/13/20 Unknown Rx Promethazine [Phenergan] 25 mg PO Q6HR PRN #20 tab 05/22/20 Unknown Rx Promethazine [Phenergan] 25 mg PO Q6HR PRN #20 tab 06/10/20 Unknown Rx Promethazine [Phenergan] 25 mg PO Q6HR PRN #20 tab 06/26/20 Unknown Rx Dicyclomine [Bentyl] 20 mg PO Q6H PRN #30 tablet 07/25/20 Unknown Rx Promethazine HCl [Phenergan SUPPOS] 25 mg RC BID #10 supp.rect 07/25/20 Unknown Rx Promethazine [Phenergan] 25 mg PO Q6HR PRN #20 tab 07/25/20 Unknown Rx Dicyclomine [Bentyl] 20 mg PO QID PRN #20 tablet 09/01/20 Unknown Rx Hyoscyamine Subl [Levsin Sl 0.125 0.125 mg PO Q4HR #20 tablet 09/21/20 Unknown Rx TAB] Promethazine [Phenergan] 25 mg PO Q6HR PRN #20 tab 09/21/20 Unknown Rx Gabapentin 100 mg PO Q8HR #12 capsule 10/01/20 Unknown Rx Promethazine [Phenergan] 25 mg PO Q6HR PRN #20 tab 10/01/20 Unknown Rx Chlorhexidine Mouthwash [Peridex] 15 ml MM BID #1 bottle 10/26/20 Unknown Rx Acetaminophen [Non-Aspirin Extra 500 mg PO Q6HR PRN #30 tablet 12/04/20 Unknown Rx Strength] Promethazine [Phenergan SUPPOS] [address] Q6HR PRN #5 supp.rect 12/04/20 Unknown Rx Promethazine [Phenergan] 25 mg PO Q6HR PRN #20 tab 12/04/20 Unknown Rx Promethazine [Phenergan SUPPOS] [address] Q6HR PRN #20 supp.rect 01/19/21 Unknown Rx Hyoscyamine Subl [Levsin Sl 0.125 0.125 mg SL Q6HR PRN #20 tab 02/04/21 Unknown Rx TAB] Elina Root [Elina] 250 mg PO QID PRN #30 capsule 02/24/21 Unknown Rx Promethazine [Phenergan SUPPOS] [address] Q6HR PRN #15 supp.rect 02/24/21 Unknown Rx oxyCODONE /ACETAMINOPHEN [Percocet 1 tab PO Q6HR PRN #12 tablet 03/30/21 Unknown Rx 5/325] Amoxicillin/Potassium Clav 1 each PO Q12H #20 tablet 05/11/21 Unknown Rx [Augmentin 875-125 Tablet] Fluconazole [Diflucan TAB] 200 mg PO QDAY #2 tablet 05/11/21 Unknown Rx traMADoL [Ultram] 50 mg PO Q6HR PRN #15 tablet 05/11/21 Unknown Rx Ondansetron [Zofran ODT TAB] 4 mg PO Q8HR PRN #20 tab.rapdis 05/29/21 Unknown Rx Dicyclomine [Bentyl] 20 mg PO Q6H PRN #30 tablet 06/09/21 Unknown Rx Famotidine [Pepcid] 20 mg PO Q12H #60 tablet 06/09/21 Unknown Rx Ondansetron [Zofran ODT TAB] 4 mg PO Q4HR PRN #20 tab.rapdis 06/09/21 Unknown Rx ED Physical Exam - General Limitations: No Limitations General appearance: alert, in no apparent distress - Head Head exam: Present: atraumatic, normocephalic, normal inspection - Eye Eye exam: Present: normal appearance, PERRL, EOMI Pupils: Present: normal accommodation - ENT ENT exam: Present: normal exam, normal orophraynx, mucous membranes moist, TM's normal bilaterally, normal external ear exam - Neck Neck exam: Present: normal inspection, full ROM - Respiratory Respiratory exam: Present: normal lung sounds bilaterally. Absent: respiratory distress, wheezes, rales, rhonchi, chest wall tenderness, accessory muscle use, decreased breath sounds, prolonged expiratory - Cardiovascular Cardiovascular Exam: Present: regular rate, normal rhythm, normal heart sounds. Absent: systolic murmur, diastolic murmur, rubs, gallop - GI/Abdominal GI/Abdominal exam: Present: soft, tenderness (Palpable mild diffuse abdominal tenderness), normal bowel sounds. Absent: guarding, rebound, hyperactive bowel sounds, hypoactive bowel sounds, organomegaly - Extremities Exam Extremities exam: Present: normal inspection, full ROM, normal capillary refill - Back Exam Back exam: Present: normal inspection, full ROM. Absent: tenderness, CVA t enderness (R), CVA tenderness (L), muscle spasm, paraspinal tenderness, vertebral tenderness - Neurological Exam Neurological exam: Present: alert, oriented X3, CN II-XII intact, normal gait, reflexes normal - Psychiatric Psychiatric exam: Present: normal affect, normal mood - Skin Skin exam: Present: warm, dry, intact, normal color. Absent: rash ED Course Vital Signs 06/08/21 06/09/21 20:15 01:14 Temperature 98.7 F Pulse Rate 75 Respiratory 17 16 Rate Blood Pressure 138/85 [Right] O2 Sat by Pulse 98 Oximetry ED Medical Decision Making - Lab Data Result diagrams: 06/09/21 00:03 06/09/21 00:03 - Medical Decision Making This is a 45-year-old -[place] female with history of chronic GI issues including chronic pancreatitis, GERD, IBS, kidney stones, gastroparesis, asthma, hypertension who presented to the ED with nausea and vomiting, diarrhea and abdominal pain for the last 3 days. Patient states that she has not been able to keep anything down in the last 24 hours. Patient states that the pain is typical of her chronic pain with nausea and vomiting diarrhea. In the ED, keren gunter is alert and oriented x3 and is not in any distress. Lab test results were reviewed and are all nonactionable. Patient was treated for pain in the ED also received normal saline 1 L IV bolus, antiemetics and antacids. On reevaluation, patient's pain is well controlled medication. Based on the history and physical exam findings, the patient symptoms are likely viral or exacerbation of her chronic abdominal complaints of IBS. Therefore no CT abdomen pelvis with contrast was indicated, since the patient has had multiple abdomen pelvis CT scan which all cannot be unremarkable. Patient was discharge home on medications and advised to follow-up with her primary care physician or GI physician in 3 to 5 days for reevaluation. Patient was advised return to the ED immediately if symptoms get worse. - Differential Diagnosis chronic pancreatitis; Gastroenteritis; UTI; GERD, gastritis Critical care attestation.: If time is entered above; I have spent that time in minutes in the direct care of this critically ill patient, excluding procedure time. ED Disposition Clinical Impression: Chronic generalized abdominal pain, Nausea, vomiting and diarrhea, Viral gastroenteritis Disposition: HOME / SELF CARE / HOMELESS Is pt being admited?: No Does the pt Need Aspirin: No Condition: Stable Instructions: Abdominal Pain, Adult, [id number], Nausea and Vomiting, Adult, [id number], Diarrhea, Adult, [id number], Viral Gastroenteritis, Adult, [id number] Additional Instructions: All lab test results were reviewed and are all nonactionable. Maintain a clear liquid diet for 12 to 24 hours, take medications with food, drink plenty of f luids and follow-up with your primary care physician or GI physician in 3 to 5 days for reevaluation. Return to the ED immediately if symptoms get worse. Prescriptions: Dicyclomine [Bentyl] 20 mg PO Q6H PRN #30 tablet PRN Reason: Abdominal pain Famotidine [Pepcid] 20 mg PO Q12H #60 tablet Ondansetron [Zofran ODT TAB] 4 mg PO Q4HR PRN #20 tab.rapdis PRN Reason: Nausea Referrals: [facility] [Provider Group] - 3-5 Days Time of Disposition: 03:00 Print Language: CANADIAN
[2021-06-09 03:44] VITALS: BP 139/70
== END 2021-06-09 03:42 | disposition home or self-care (01) ==
LOC: ED 19:12
DX: R10.84 Generalized abdominal pain (principal); R11.2 Nausea with vomiting, unspecified; R19.7 Diarrhea, unspecified; A08.4 Viral intestinal infection, unspecified; I10 Essential (primary) hypertension; J45.909 Unspecified asthma, uncomplicated; Z90.49 Acquired absence of other specified parts of digestive tract; Z88.5 Allergy status to narcotic agent; Z88.6 Allergy status to analgesic agent; Z88.8 Allergy status to other drugs, medicaments and biological substances
CPT/HCPCS: 36415; 80053; 83690; 85025; 96361; 96374; 96375; 96376; 99283; J1170; J1200; J2405; J3490; J7030; Q0162

== ENCOUNTER 2021-11-16 09:17 | Emergency (ER) | payer SELFPAY ==
[2021-11-16 09:22] VITALS: BP 144/114
== END 2021-11-17 00:18 | disposition left against medical advice (07) ==
LOC: ED 09:17
DX: R10.9 Unspecified abdominal pain (principal); Z53.21 Procedure and treatment not carried out due to patient leaving prior to being seen by health care provider